=== PATIENT | female | born 1950 | race Caucasian/White ===

== ENCOUNTER 2024-02-10 15:59 | Inpatient (IN) ==
--- NOTE | 2024-02-10 16:15 | ED Triage Note ---
Date of Service February 10, 2024 Provider in Triage Author: Justina Griffin History of Present Illness This patient was briefly evaluated while in triage. An abbreviated physical exam was performed. This patient is a 73-year-old Female who presents to the ED for evaluation of weakness. Pt. has not been eating/drinking/urinating well the past few days. 3 weeks ago, had 2nd dose of chemotherapy. Has been extremely tired and sleeping most days. Pt. did fall on Saturday night while getting up to bedside commode. Was not witnessed. Pt. denies striking head. Physical Exam VITALS: Vitals are noted on the nurse's note and reviewed by myself. GENERAL: This is a 73 year old female, in no acute distress, nondiaphoretic, well-developed well-nourished. SKIN: No obvious rashes, edema, erythema HEAD: Normocephalic atraumatic. EYES: Conjunctivae without injection, sclerae without icterus. NECK: No JVD. LUNGS: No retractions or accessory muscle use. MUSCULOSKELETAL: Presents in a wheelchair. NEURO: Patient was alert and oriented to person place and time. No focal neurological deficits. Initial orders for labs and / or imaging were placed and patient was placed in the waiting area until a bed is available. Please see further documentation for the full ED course.
[2024-02-10 16:59] LABS: Base Excess VBG -4.4 mEq/L; HCO3 VBG 21 mmol/L; Oxygen Saturation VBG < 60.0 %; PCO2 VBG 39 mmHg (38-50); PO2 VBG 21 mmHg; pH VBG 7.34 (7.36-7.41)
[2024-02-10 17:18] LABS: Hematocrit (blood only) 20.4 % (37.0-47.0); Hemoglobin 6.9 g/dl (12.0-16.0); Mean Corpuscular Hgb Conc 33.8 g/dL (32.0-36.0); Mean Corpuscular Volume 85.7 fL (80.0-100.0); Mean Platelet Volume 9.6 fL (9.4-12.4); Platelet Count 271 K/uL (130-400); RDW Standard Deviation 59.7 fL (36.4-46.3); Red Blood Count 2.38 M/uL (4.20-5.40); White Blood Count 14.06 K/ul (4.8-10.8)
[2024-02-10] MEDS: SODIUM CHLORIDE 0.9% 1,000 ML IV ONE (17:20)
[2024-02-10 17:22] LABS: Alanine Aminotransferase 14 U/L (7-52); Albumin Level 3.2 gm/dl (3.4-5.0); Alkaline Phosphatase 90 U/L (34-104); Anion Gap 11 (3-11); Aspartate Aminotransferase 24 U/L (13-39); BUN Creatinine Ratio 15.8 (10-20); Bilirubin,Total 0.4 mg/dl (0.2-1.0); Blood Urea Nitrogen 44 mg/dl (6-23); Calcium 8.2 mg/dl (8.6-10.3); Carbon Dioxide 22 mmol/L (21-32); Chloride 89 mmol/L (98-107); Globulin 3.2 gm/dl (2.5-4.0); Glucose 83 mg/dl (70-99(Fasting)); Magnesium 1.6 mg/dl (1.7-2.4); Potassium 3.8 mmol/L (3.5-5.1); Sodium 122 mmol/L (136-145); Total Protein 6.4 gm/dl (6.0-8.3)
[2024-02-10 17:25] LABS: Basophils # (auto) 0.04 K/uL (0.00-0.20); Basophils % (auto) 0.3 %; Eosinophils # (auto) 0.07 K/uL (0.00-0.50); Eosinophils % (auto) 0.5 %; Immature Granulocytes # (auto) 0.64 K/uL (0.01-0.20); Immature Granulocytes % (auto) 4.6 %; Lymphocytes # (auto) 1.21 K/uL (1.20-3.40); Lymphocytes % (auto) 8.6 %; Monocytes # (auto) 0.53 K/uL (0.11-0.59); Monocytes % (auto) 3.8 %; Neutrophils # (auto) 11.57 K/uL (1.40-6.50); Neutrophils % (auto) 82.2 %; RBC Morphology Unremarkable
[2024-02-10 17:32] LABS: Partial Thromboplastin Time 28 Seconds (21-31); Prothrombin Time 10.9 Seconds (9.0-12.0)
[2024-02-10 17:35] LABS: Troponin I High Sensitivity 4722.8 pg/ml (0-14)
[2024-02-10] MEDS ORDERED: SODIUM CHLORIDE 0.9% 100 ML IV PRN (17:35)
[2024-02-10] MEDS ORDERED: SODIUM CHLORIDE 0.9% 50 ML IV PRN (17:35)
[2024-02-10 17:37] LABS: Thyroid Stimulating Hormone 3.822 uIu/ml (0.300-4.500)
--- NOTE | 2024-02-10 18:00 | XRay Report ---
EXAM: Radiograph of the Chest 1 View INDICATION: Fall. Weakness. TECHNIQUE: Frontal view of the chest. COMPARISON: 12/16/2023 FINDINGS: Lungs and pleural spaces: Decreased size and asymmetric wall thickening of a cavitary nodule in the right mid to lower lung measuring 2.7 x 3.3 cm. New generalized airway thickening and patchy infiltrates in the left lung most confluent in the base. Stable scarring in the right upper lobe. Trace left pleural effusion probable. No pneumothorax. Patchy consolidation in the left lung base. Possible very small left pleural effusion. Heart: Shape and configuration within normal limits allowing for technique. Mediastinum: Normal contour. Bones/joints: No fracture, erosion or dislocation. Bilateral shoulder arthroplasties well-seated. Soft tissues: No abnormality noted. No radiopaque foreign body noted. Tubes, lines and devices: Right internal jugular port catheter tip terminates in the proximal SVC. Upper abdomen: No abnormality noted. IMPRESSION: Left bronchitis and multifocal pneumonia. Trace left pleural effusion. Consider aspiration. ACT 112: Negative or not required by law. Electronically signed by Anny Pelayo 02-10-2024 6:00 PM
[2024-02-10 18:02] LABS: Reticulocyte % 1.57 % (0.50-2.00)
--- NOTE | 2024-02-10 18:10 | XRay Report ---
EXAM: Radiographs of the Pelvis 1 View INDICATION: Fall. TECHNIQUE: Frontal view of the pelvis. COMPARISON: No relevant prior studies available. FINDINGS: Limitations: None. Bones/joints: Visualized bilateral hip prostheses well-seated. No dislocation or fracture noted in 1 year. Soft tissues: No abnormality noted. No radiopaque foreign body noted. Vasculature: Atherosclerosis of the abdominal aorta noted with a stent projecting to the left of the L4 vertebra possibly in the left renal artery. IMPRESSION: No pelvic fracture noted. ACT 112: Negative or not required by law. Electronically signed by Anny Pelayo 02-10-2024 6:10 PM
[2024-02-10 18:11] LABS: Iron 45 mcg/dl (35-150); Transferrin 178 mg/dl (200-360); Unsaturated Iron Binding Cap 190 mcg/dl (155-355)
--- NOTE | 2024-02-10 18:13 | Emergency Department Note ---
Impression & Plan Septic shock, Anemia, Pneumonia, Lung cancer, Elevated troponin, Acute on chronic renal insufficiency, Respiratory failure, acute and chronic, Hypomagnesemia ED Provider Note NAME: JORGE DE LA TORRE AGE: 73 SEX: F : 1950 ARRIVES VIA: Walk-In INFORMANT: Patient ED PROVIDER(S): Giorgio Monroy MD CHIEF COMPLAINT: Weakness, fall on Saturday, history of lung cancer on chemotherapy PLAN: Disposition: Admit MEDICAL DECISION MAKING: The patient is a pleasant 73-year-old woman with past medical history of CKD, COPD, lung cancer who presents emergency department via walk-in for evaluation of generalized weakness that has been ongoing for the past week. She reports she did have a fall on Saturday where she collapsed to her knees and hands and denies hitting her head. She reports she has been having issues with her "iron" and has been receiving "infusions" through the cancer center. This has interrupted her treatments over the past several weeks. She follows with [facility] oncology. Of note, the patient did arrive to emergency department during time of high volume, acuity and prolonged emergency department waiting times. Critical pathways initiated from triage. On evaluation the patient is fatigued/ill appearing but no distress, afebrile with heart rate in the 130s and blood pressure in the 70s/40s in triage though mentating normally upon arriving to the room with measurement on auto BP cuff. Manual BP cuff was somewhat better at 80s/60s. Patient has discomfort with range of motion of her right hip and ankle. There is no gross deformity or discoloration. EKG without overt acute ischemia. CXR demonstrates decrease in size and asymmetric wall thickening with cavitary nodule in the right mid to lower lung measuring 2.7 x 3.3 cm. There are new generalized airway thickening and patchy infiltrates in left lung and base. Trace left pleural effusion is suspected. WBC 14K with neutrophilia and left shift of 0.64. H/H 6.9/20.4 with MCV of 85. The patient was consented for blood transfusion. 2 units of PRBCs were ordered with 1 unit to transfuse now. Platelets within normal limits. VBG is unremarkable. Chemistry with out metabolic acidosis. Lactate 1.3, within normal limits. There is acute on chronic renal failure with creatinine of 2.78 from patient's baseline. Sodium is 122 with normal glucose with osmolality pending. Magnesium 1.6 with IV repletion initiated. LFTs unremarkable. High- sensitivity troponin is 4700 and given the patient's lung cancer where she is not on anticoagulation suspicion raised for PE. Despite her renal insufficiency given her hypotension we will proceed with CTA of the chest. Procalcitonin is elevated at 0.52. Antibiotics initiated with IV Zosyn and vancomycin. CT of the head negative for acute abnormalities. Description of age indeterminant small cortical infarct of the right parietal cortex is described but does not correlate clinically for acute finding. CT of the cervical spine negative for fractures. CTA of the chest was negative for PE. Extensive consolidation of the left lower lobe is described. Increasing nodular appearing lesions of left upper lobe demonstrate early cavitation. Cavitary lesion of the right lower lobe with wall thickening measures 4.3 cm. Heterogenous opacity in the right upper lobe appears to be a peripheral rim measuring 4.3 cm. Linear nodule density in the posterior right upper lobe measuring 3.7 x 1.5 cm. Severe CAD by CT is described. CT of the abdomen pelvis was negative for fracture. Heterogenous appearance of the marrow within the pelvis is described where metastatic disease cannot be completely excluded. AAA measuring 4.1 cm is noted. 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 Upon return from CT imaging the patient had developed acute respiratory distress with increased work of breathing and diffuse wheezes. She was placed on BiPAP and treated with continuous DuoNeb with improvement in work of breathing. PRBCs were hung. However blood pressure again became hypotensive and given concern for volume overload in the setting of the patient's renal insufficiency Levophed was initiated and additional 250 cc of normal saline administered with caution. Patient was transferred to critical care bay for closer monitoring. Patient also was noted to be hypothermic to 35.6 by central temperature and so María Elena hugger placed. Case was discussed with Dr. Flor, [facility] hospitalist who will evaluate the patient for admission. Further management per admitting team. Triage Nursing notes reviewed and agree them. Prior/external medical records reviewed Vital Signs: reviewed Differential diagnosis: Infection, dehydration, metabolic abnormality, hypo/hyperglycemia, electrolyte disturbance, anemia, hypoxia, cardiac sources, intracerebral event, toxicologic, neurologic, as well as other pathologies. ER treatment provided: See below. Diagnostics interpreted by me: ECG: Normal sinus rhythm, 79 bpm, no ectopy, no overt ST elevation or depression, QTc 458 QRS 88. Cardiac Monitoring: An order for continuous cardiac monitoring was placed and demonstrated Normal sinus rhythm, 79 bpm, no ectopy. Laboratory studies: See below Imaging studies: See below Consultation(s): Case was discussed with Dr. Flor, [facility] hospitalist who will evaluate the patient for admission. HPI: The patient is a pleasant 73-year-old woman with past medical history of CKD, COPD, lung cancer who presents emergency department via walk-in for evaluation of generalized weakness that has been ongoing for the past week. She reports she did have a fall on Saturday where she collapsed to her knees and hands and denies hitting her head. She reports she has been having issues with her "iron" and has been receiving "infusions" through the cancer center. This has interrupted her treatments over the past several weeks. She follows with [facility] oncology. ROS: See above HPI for pertinent positives & negatives. A total of 10 systems reviewed and were otherwise negative. VITALS:See Below PHYSICAL EXAMINATION: GENERAL: Awake, alert, fatigued/ill-appearing, in no distress, cachectic, BMI 26.1. HENT: Normocephalic, atraumatic. Oropharynx with dry mucous membranes and otherwise unremarkable. EYES: Normal conjunctiva. Sclera non-icteric. NECK: Supple. No nuchal rigidity. FROM. No JVD. RESPIRATORY: Wheezes of bilateral lung núñez. CARDIAC: Tachycardic rate, normal rhythm. Extremities warm and well perfused. Pulses equal. ABDOMEN: Soft, non-distended. No tenderness to palpation. No rebound or guarding. No masses. MUSCULOSKELETAL: Chest examination reveals no tenderness. The back is symmetrical on inspection without obvious abnormality. There is no CVA tenderness to palpation. No joint edema. discomfort with range of motion of her right hip and ankle. There is no gross deformity or discoloration. LOWER EXTREMITIES: Calves are equal size bilaterally and non-tender. No edema. No discoloration. NEURO: Normal sensorium. No sensory or motor deficits noted. SKIN: No rash or jaundice noted. ED COURSE: Critical Care: I have personally spent greater than 125 minutes of critical care time in the direct management of this patient. This includes bedside care, interpretation of diagnostic studies, and testing, discussion with consultants, patient, and family members, and other required patient management activities. This 125 minutes is in excess of all separately billable procedures. Giorgio Monroy MD Past Med/Surg History Problem List (Updated 02/11/24 @ 07:00 by Giorgio Monroy MD) Hypomagnesemia (Acute) Acute on chronic renal insufficiency (Acute) Encephalopathy [place] (acute kidney injury) Respiratory failure, acute and chronic (Acute) Elevated troponin (Acute) Lung cancer (Acute) Pneumonia (Acute) Anemia (Acute) Septic shock (Acute) Medical History Hyponatremia AAA (abdominal aortic aneurysm) per 09/10/23 imagin.7mm CKD (chronic kidney disease) stage 4, GFR 15-29 ml/min Carotid artery disease s/p R CEA Peripheral vascular disease Diverticular disease No hospitalizations - unsure when dx Acid reflux Diabetes mellitus, type 2 Anxiety Migraine HTN (hypertension) Irregular heart beat Follows Dr Hannah Springer; 'frequent PVCs' per chart review COPD (chronic obstructive pulmonary disease) 55 pack year smoking hx Lung cancer Per Oncology note, "Right lung mass, FNA c/w non small cell lung cancer favor adenocarcinoma. 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" Surgical History H/O vascular surgery L leg stent x 2 Hx of hysterectomy History of lung biopsy History of right shoulder replacement History of carotid endarterectomy R CEA History of bilateral hip replacements History of total left knee replacement Hx of colonoscopy Hx of cholecystectomy Hx of cataract surgery Bilateral Social History Smoking Status: Never smoker Tobacco Type: Cigarettes Cigarettes Per Day: 1/2 pack; Second Hand Exposure: No; Do You Dip or Chew Tobacco: No; Hx Alcohol Use: No Hx Substance Use: No Preferred Language: Turkmen Communication Ability: Effective Receptionist Nurse Required: No Beliefs That Will Affect Care: None Current Living Situation: Spouse Feels Safe at Home: Yes Assistive Devices: Walker Allergies Allergies Allergy/AdvReac Type Severity Reaction Status Date / Time NSAIDS (Non-Steroidal AdvReac Intermediate Hives Verified 12/16/23 07:27 Anti-Inflamma Home Meds Home Medications Medication Instructions Recorded Confirmed amlodipine 5 mg tablet 2.5 mg PO QAM 12/04/23 02/10/24 budesonide 160 mcg-glycopyr 9 2 inh inhalation QPM 12/04/23 02/10/24 mcg-formot 4.8 mcg/actuation HFA inhaler (Breztri Aerosphere) bupropion HCl 150 mg 24 hr tablet, 150 mg PO QAM 12/04/23 02/10/24 extended release dapagliflozin propanediol 5 mg 5 mg PO QAM 12/04/23 02/10/24 tablet (Farxiga) dexamethasone 4 mg tablet See Rx Instructions .Route .COMPLEX 12/04/23 02/10/24 lansoprazole 15 mg capsule,delayed 15 mg PO QAM 12/04/23 02/10/24 release losartan 100 mg tablet 100 mg PO QAM 12/04/23 02/10/24 osimertinib 40 mg tablet (Tagrisso) 40 mg PO QAM 12/04/23 02/10/24 rosuvastatin 10 mg tablet 10 mg PO QAM 12/04/23 02/10/24 venlafaxine 150 mg 150 mg PO QAM 12/04/23 02/10/24 capsule,extended release 24 hr (Effexor XR) acetaminophen 500 mg tablet 500 mg PO Q6H PRN Pain 02/10/24 02/10/24 albuterol sulfate 2.5 mg/3 mL 2.5 mg inhalation Q4H PRN Wheezing 02/10/24 02/10/24 (0.083 %) solution for nebulization albuterol sulfate 90 mcg/actuation 2 puff inhalation 6XD PRN Wheezing 02/10/24 02/10/24 aerosol inhaler aspirin 81 mg tablet,delayed 81 mg PO DAILY 02/10/24 02/10/24 release lidocaine-prilocaine 2.5 %-2.5 % 1 applic topical UD 02/10/24 02/10/24 topical cream melatonin 5 mg tablet 5 mg PO HS 02/10/24 02/10/24 omeprazole 20 mg capsule,delayed 20 mg PO QAM 02/10/24 02/10/24 release ondansetron HCl 8 mg tablet 8 mg PO Q8H PRN Nausea And Vomiting 02/10/24 02/10/24 prochlorperazine maleate 10 mg 10 mg PO Q6H PRN Nausea 02/10/24 02/10/24 tablet propranolol 60 mg capsule,24 60 mg PO QAM 02/10/24 02/10/24 hr,extended release trazodone 100 mg tablet 100 mg PO QAM 02/10/24 02/10/24 Results & Data (ED) Vital Signs Vital Signs - 24 hr 02/10/24 16:16 02/10/24 17:27 02/10/24 17:29 Temperature 36.5 C Temperature Source Temporal Artery Scan Pulse Rate 132 H 80 Pulse Rate [Apical] Pulse Rate from SpO2 Sensor Respiratory Rate 20 15 Respiratory Effort / Characteristics Non-Labored Spontaneous Respiratory Depth Normal Respiratory Pattern Blood Pressure 76/43 L Blood Pressure [Left Arm] Blood Pressure Mean 54 Blood Pressure Mean [Left Arm] Pulse Oximetry 98 92 Oxygen Delivery Method Room Air Nasal Cannula Nasal Cannula Oxygen Flow Rate 2 2 Fraction of Inspired Oxygen Sepsis Recent Fever Within 48 Hours No Sepsis New/Unexplained Change in Mental Status No Sepsis Action Taken by Nursing No Action Required 02/10/24 17:32 02/10/24 17:44 02/10/24 17:45 Temperature Temperature Source Pulse Rate 80 Pulse Rate [Apical] 81 80 Pulse Rate from SpO2 Sensor Respiratory Rate 22 18 Respiratory Effort / Characteristics Non-Labored Spontaneous Non-Labored Spontaneous Respiratory Depth Normal Normal Respiratory Pattern Regular Blood Pressure Blood Pressure [Left Arm] 76/34 L 80/60 L Blood Pressure Mean Blood Pressure Mean [Left Arm] 48 66 Pulse Oximetry 93 95 Oxygen Delivery Method Room Air Nasal Cannula Oxygen Flow Rate Fraction of Inspired Oxygen Sepsis Recent Fever Within 48 Hours Sepsis New/Unexplained Change in Mental Status Sepsis Action Taken by Nursing 02/10/24 18:00 02/10/24 19:45 02/10/24 19:45 Temperature Temperature Source Pulse Rate 76 Pulse Rate [Apical] 80 Pulse Rate from SpO2 Sensor Respiratory Rate 19 26 H Respiratory Effort / Characteristics Non-Labored Spontaneous Spontaneous Accessory Muscle Use Respiratory Depth Normal Respiratory Pattern Blood Pressure Blood Pressure [Left Arm] 99/49 L Blood Pressure Mean Blood Pressure Mean [Left Arm] 65 Pulse Oximetry 92 Oxygen Delivery Method Nasal Cannula BiPAP Oxygen Flow Rate Fraction of Inspired Oxygen 100 Sepsis Recent Fever Within 48 Hours Sepsis New/Unexplained Change in Mental Status Sepsis Action Taken by Nursing 02/10/24 19:50 02/10/24 20:06 02/10/24 20:07 Temperature 35.8 C L 36.8 C Temperature Source Axillary Rectal Pulse Rate 81 78 79 Pulse Rate [Apical] Pulse Rate from SpO2 Sensor 78 Respiratory Rate 27 H 17 22 Respiratory Effort / Characteristics Respiratory Depth Respiratory Pattern Blood Pressure 90/46 L 69/44 L Blood Pressure [Left Arm] Blood Pressure Mean 60 52 Blood Pressure Mean [Left Arm] Pulse Oximetry 92 100 96 Oxygen Delivery Method BiPAP Oxygen Flow Rate 100 Fraction of Inspired Oxygen 40 Sepsis Recent Fever Within 48 Hours Sepsis New/Unexplained Change in Mental Status Sepsis Action Taken by Nursing 02/10/24 20:12 02/10/24 20:15 02/10/24 20:15 Temperature Temperature Source Pulse Rate 78 Pulse Rate [Apical] Pulse Rate from SpO2 Sensor 77 Respiratory Rate 21 Respiratory Effort / Characteristics Respiratory Depth Respiratory Pattern Blood Pressure 76/53 L Blood Pressure [Left Arm] Blood Pressure Mean 56 Blood Pressure Mean [Left Arm] Pulse Oximetry Oxygen Delivery Method BiPAP Oxygen Flow Rate Fraction of Inspired Oxygen Sepsis Recent Fever Within 48 Hours Sepsis New/Unexplained Change in Mental Status Sepsis Action Taken by Nursing 02/10/24 20:21 02/10/24 20:22 02/10/24 20:22 Temperature 35.6 C L Temperature Source Axillary Pulse Rate 77 75 Pulse Rate [Apical] Pulse Rate from SpO2 Sensor Respiratory Rate 20 16 Respiratory Effort / Characteristics Respiratory Depth Respiratory Pattern Blood Pressure 84/43 L 121/89 Blood Pressure [Left Arm] Blood Pressure Mean 56 100 Blood Pressure Mean [Left Arm] Pulse Oximetry 99 100 Oxygen Delivery Method BiPAP Oxygen Flow Rate Fraction of Inspired Oxygen 40 Sepsis Recent Fever Within 48 Hours Sepsis New/Unexplained Change in Mental Status Sepsis Action Taken by Nursing 02/10/24 20:27 02/10/24 20:27 02/10/24 20:31 Temperature Temperature Source Pulse Rate 75 Pulse Rate [Apical] Pulse Rate from SpO2 Sensor Respiratory Rate 18 Respiratory Effort / Characteristics Respiratory Depth Respiratory Pattern Blood Pressure 84/43 L Blood Pressure [Left Arm] Blood Pressure Mean 61 Blood Pressure Mean [Left Arm] Pulse Oximetry 97 100 Oxygen Delivery Method BiPAP Oxygen Flow Rate Fraction of Inspired Oxygen 40 40 Sepsis Recent Fever Within 48 Hours Sepsis New/Unexplained Change in Mental Status Sepsis Action Taken by Nursing 02/10/24 20:37 02/10/24 20:39 02/10/24 20:39 Temperature Temperature Source Pulse Rate 82 Pulse Rate [Apical] Pulse Rate from SpO2 Sensor 80 Respiratory Rate 20 Respiratory Effort / Characteristics Respiratory Depth Respiratory Pattern Blood Pressure 72/47 L 88/43 L Blood Pressure [Left Arm] Blood Pressure Mean 55 48 Blood Pressure Mean [Left Arm] Pulse Oximetry 92 Oxygen Delivery Method Oxygen Flow Rate Fraction of Inspired Oxygen Sepsis Recent Fever Within 48 Hours Sepsis New/Unexplained Change in Mental Status Sepsis Action Taken by Nursing 02/10/24 20:45 02/10/24 20:45 02/10/24 20:49 Temperature Temperature Source Pulse Rate 83 Pulse Rate [Apical] Pulse Rate from SpO2 Sensor 83 Respiratory Rate 21 Respiratory Effort / Characteristics Respiratory Depth Respiratory Pattern Blood Pressure 67/43 L 85/36 L Blood Pressure [Left Arm] Blood Pressure Mean 45 47 Blood Pressure Mean [Left Arm] Pulse Oximetry 92 Oxygen Delivery Method Oxygen Flow Rate Fraction of Inspired Oxygen Sepsis Recent Fever Within 48 Hours Sepsis New/Unexplained Change in Mental Status Sepsis Action Taken by Nursing 02/10/24 20:50 02/10/24 20:51 02/10/24 20:52 Temperature 35.8 C L Temperature Source [place] Cath ( Temp Sensing) Pulse Rate 86 91 H Pulse Rate [Apical] Pulse Rate from SpO2 Sensor 94 H Respiratory Rate 24 18 Respiratory Effort / Characteristics Respiratory Depth Respiratory Pattern Blood Pressure 92/51 L 104/52 L Blood Pressure [Left Arm] Blood Pressure Mean 61 69 Blood Pressure Mean [Left Arm] Pulse Oximetry 98 100 Oxygen Delivery Method BiPAP Oxygen Flow Rate Fraction of Inspired Oxygen 40 Sepsis Recent Fever Within 48 Hours Sepsis New/Unexplained Change in Mental Status Sepsis Action Taken by Nursing 02/10/24 20:56 02/10/24 20:56 02/10/24 21:00 Temperature Temperature Source Pulse Rate 91 H Pulse Rate [Apical] Pulse Rate from SpO2 Sensor 92 H Respiratory Rate 20 Respiratory Effort / Characteristics Respiratory Depth Respiratory Pattern Blood Pressure 104/54 L 104/54 L Blood Pressure [Left Arm] Blood Pressure Mean 57 57 Blood Pressure Mean [Left Arm] Pulse Oximetry 99 Oxygen Delivery Method BiPAP Oxygen Flow Rate Fraction of Inspired Oxygen 40 Sepsis Recent Fever Within 48 Hours Sepsis New/Unexplained Change in Mental Status Sepsis Action Taken by Nursing 02/10/24 21:00 02/10/24 21:00 02/10/24 21:03 Temperature Temperature Source Pulse Rate 93 H Pulse Rate [Apical] Pulse Rate from SpO2 Sensor 93 H Respiratory Rate 25 H Respiratory Effort / Characteristics Respiratory Depth Respiratory Pattern Blood Pressure 115/77 Blood Pressure [Left Arm] Blood Pressure Mean 103 Blood Pressure Mean [Left Arm] Pulse Oximetry 97 Oxygen Delivery Method BiPAP BiPAP Oxygen Flow Rate Fraction of Inspired Oxygen 40 Sepsis Recent Fever Within 48 Hours Sepsis New/Unexplained Change in Mental Status Sepsis Action Taken by Nursing 02/10/24 21:07 02/10/24 21:09 02/10/24 21:10 Temperature Temperature Source Pulse Rate 93 H Pulse Rate [Apical] Pulse Rate from SpO2 Sensor Respiratory Rate 25 H Respiratory Effort / Characteristics Respiratory Depth Respiratory Pattern Blood Pressure 101/70 112/56 L Blood Pressure [Left Arm] Blood Pressure Mean 86 71 Blood Pressure Mean [Left Arm] Pulse Oximetry Oxygen Delivery Method Oxygen Flow Rate Fraction of Inspired Oxygen Sepsis Recent Fever Within 48 Hours Sepsis New/Unexplained Change in Mental Status Sepsis Action Taken by Nursing 02/10/24 21:10 02/10/24 21:12 02/10/24 21:16 Temperature Temperature Source Pulse Rate 96 H Pulse Rate [Apical] Pulse Rate from SpO2 Sensor 96 H Respiratory Rate 20 Respiratory Effort / Characteristics Respiratory Depth Respiratory Pattern Blood Pressure 112/56 L 108/56 L Blood Pressure [Left Arm] Blood Pressure Mean 71 67 Blood Pressure Mean [Left Arm] Pulse Oximetry 94 Oxygen Delivery Method BiPAP Oxygen Flow Rate Fraction of Inspired Oxygen 40 Sepsis Recent Fever Within 48 Hours Sepsis New/Unexplained Change in Mental Status Sepsis Action Taken by Nursing 02/10/24 21:18 02/10/24 21:19 02/10/24 21:25 Temperature Temperature Source Pulse Rate 95 H 96 H Pulse Rate [Apical] Pulse Rate from SpO2 Sensor 98 H Respiratory Rate 22 Respiratory Effort / Characteristics Respiratory Depth Respiratory Pattern Blood Pressure 83/57 L Blood Pressure [Left Arm] Blood Pressure Mean 69 Blood Pressure Mean [Left Arm] Pulse Oximetry 100 Oxygen Delivery Method BiPAP Oxygen Flow Rate Fraction of Inspired Oxygen 40 Sepsis Recent Fever Within 48 Hours Sepsis New/Unexplained Change in Mental Status Sepsis Action Taken by Nursing 02/10/24 21:30 02/10/24 21:30 02/10/24 21:48 Temperature Temperature Source Pulse Rate 96 H 95 H Pulse Rate [Apical] Pulse Rate from SpO2 Sensor 97 H 95 H Respiratory Rate 28 H 24 Respiratory Effort / Characteristics Respiratory Depth Respiratory Pattern Blood Pressure 106/51 L Blood Pressure [Left Arm] Blood Pressure Mean 83 Blood Pressure Mean [Left Arm] Pulse Oximetry 100 Oxygen Delivery Method BiPAP Oxygen Flow Rate Fraction of Inspired Oxygen 40 Sepsis Recent Fever Within 48 Hours Sepsis New/Unexplained Change in Mental Status Sepsis Action Taken by Nursing Laboratory Data Attestation: I reviewed the patient's lab results. 02/11/24 05:21 02/11/24 05:21 Lab Results 02/10/24 02/10/24 02/10/24 Range/Units 16:44 16:44 16:44 WBC 14.06 H (4.8-10.8) K/ul RBC 2.38 L (4.20-5.40) M/uL Hgb 6.9 L* (12.0-16.0) g/dl POC Hgb (12.0-16.0) g/dl Hct 20.4 L* (37.0-47.0) % POC Hct (37-47) % MCV 85.7 (80.0-100.0) fL MCH 29.0 (25.0-34.0) pg MCHC 33.8 (32.0-36.0) g/dL RDW Std Deviation 59.7 H (36.4-46.3) fL RDW Coeff of Lara 19.0 H (11.5-14.5) % Plt Count 271 (130-400) K/uL MPV 9.6 (9.4-12.4) fL Immature Gran % (Auto) 4.6 % Neut % (Auto) 82.2 % Lymph % (Auto) 8.6 % [place] % (Auto) 3.8 % Eos % (Auto) 0.5 % Baso % (Auto) 0.3 % Reticulocyte % (Auto) 1.57 (0.50-2.00) % Neut # (Auto) 11.57 H (1.40-6.50) K/uL Lymph # (Auto) 1.21 (1.20-3.40) K/uL [place] # (Auto) 0.53 (0.11-0.59) K/uL Eos # (Auto) 0.07 (0.00-0.50) K/uL Baso # (Auto) 0.04 (0.00-0.20) K/uL Reticulocyte # 0.040 (0.020-0.100) 10^6/uL Immature Gran # (Auto) 0.64 H (0.01-0.20) K/uL RBC Morphology Unremarkable PT 10.9 (9.0-12.0) Seconds INR 1.0 (0.9-1.1) APTT 28 (21-31) Seconds PTT Ratio 1.0 Specimen Type POC pH (7.35-7.45) POC pCO2 (35-46) mmHg POC pO2 (80-95) mmHg POC HCO3 (19-24) mitchell/L POC Total CO2 (24-31) mmol/L POC Base Excess (-9-1.8) mitchell/L POC ABG O2 Sat (90-95) % VBG pH 7.34 L (7.36-7.41) VBG pCO2 39 (38-50) mmHg VBG pO2 21 mmHg VBG HCO3 21 mmol/L VBG O2 Saturation < 60.0 % VBG Base Excess -4.4 mEq/L POC Sodium (135-144) mmol/L Sodium 122 L (136-145) mmol/L POC Potassium (3.3-5.0) mmol/L Potassium 3.8 (3.5-5.1) mmol/L Chloride 89 L (98-107) mmol/L Carbon Dioxide 22 (21-32) mmol/L Anion Gap 11 (3-11) BUN 44 H (6-23) mg/dl Creatinine 2.78 H (0.6-1.2) mg/dl Est Cr Clr Drug Dosing Not Reportable eGFR 17.44 BUN/Creatinine Ratio 15.8 (10-20) Glucose 83 (70-99(Fasting)) mg/dl Osmolality (280-300) mOsm/kg Lactate 1.3 (0.4-2.0) mmol/L Calcium 8.2 L (8.6-10.3) mg/dl Magnesium 1.6 L (1.7-2.4) mg/dl Iron 45 Cancelled (35-150) mcg/dl Unsaturated IBC 190 Cancelled (155-355) mcg/dl Transferrin 178 L (200-360) mg/dl Ferritin (8-388) ng/ml Total Bilirubin (0.2-1.0) mg/dl AST (13-39) U/L ALT (7-52) U/L Alkaline Phosphatase (34-104) U/L Total Creatine Kinase (26-192) U/L Troponin I High Sens (0-14) pg/ml B-Natriuretic Peptide (0-100) pg/ml Total Protein (6.0-8.3) gm/dl Albumin (3.4-5.0) gm/dl Globulin (2.5-4.0) gm/dl Albumin/Globulin Ratio (0.9-2) Vitamin B12 (180-914) pg/ml Folate (>5.38) ng/ml Procalcitonin (0-0.5) ng/ml TSH (0.300-4.500) uIu/ml Urine Color Urine Appearance (Clear) Urine pH (4.5-7.5) Ur Specific [place] (1.000-1.030) Urine Protein (Negative) Urine Glucose (UA) (Negative) Urine Ketones (Negative) Urine Blood (Negative) Urine Nitrite (Negative) Urine Bilirubin (Negative) Urine Urobilinogen (Negative) Ur Leukocyte Esterase (Negative) Urine WBC (Auto) (0-5) /hpf Urine RBC (Auto) (0-2) /hpf U Hyaline Cast (Auto) (0-2) /lpf U Epithel Cells (Auto) (0-2) /hpf Urine Bacteria (Auto) (None Seen) Hyaline Casts (None Presnt) /lpf Urine Osmolality (500-800) mOsm/kg Ur Random Sodium mmol/L Nasal Screen MRSA (PCR) (Negative) Adenovirus (PCR) (NotDetected) B. pertussis DNA (PCR) (NotDetected) B.parapertussis DNA PCR (NotDetected) C. pneumoniae DNA (PCR) (NotDetected) Coronavirus OC43 (PCR) (NotDetected) Coronavirus HKU1 (PCR) (NotDetected) Coronavirus 229E (PCR) (NotDetected) SARS-CoV-2 (PCR) (NotDetected) Coronavirus NL63 (PCR) (NotDetected) Human Metapneumovir PCR (NotDetected) Influenza Type A (PCR) (NotDetected) Influenza Type B (PCR) (NotDetected) M. pneumoniae (PCR) (NotDetected) Parainfluenza 1 (PCR) (NotDetected) Parainfluenza 2 (PCR) (NotDetected) Parainfluenza 3 (PCR) (NotDetected) Parainfluenza 4 (PCR) (NotDetected) RSV (PCR) (NotDetected) Entero/Rhino (PCR) (NotDetected) Blood Type Blood Type Recheck Antibody Screen Crossmatch 02/10/24 02/10/24 02/10/24 Range/Units 16:44 16:44 17:17 WBC (4.8-10.8) K/ul RBC (4.20-5.40) M/uL Hgb (12.0-16.0) g/dl POC Hgb (12.0-16.0) g/dl Hct (37.0-47.0) % POC Hct (37-47) % MCV (80.0-100.0) fL MCH (25.0-34.0) pg MCHC (32.0-36.0) g/dL RDW Std Deviation (36.4-46.3) fL RDW Coeff of Lara (11.5-14.5) % Plt Count (130-400) K/uL MPV (9.4-12.4) fL Immature Gran % (Auto) % Neut % (Auto) % Lymph % (Auto) % [place] % (Auto) % Eos % (Auto) % Baso % (Auto) % Reticulocyte % (Auto) (0.50-2.00) % Neut # (Auto) (1.40-6.50) K/uL Lymph # (Auto) (1.20-3.40) K/uL [place] # (Auto) (0.11-0.59) K/uL Eos # (Auto) (0.00-0.50) K/uL Baso # (Auto) (0.00-0.20) K/uL Reticulocyte # (0.020-0.100) 10^6/uL Immature Gran # (Auto) (0.01-0.20) K/uL RBC Morphology PT (9.0-12.0) Seconds INR (0.9-1.1) APTT (21-31) Seconds PTT Ratio Specimen Type POC pH (7.35-7.45) POC pCO2 (35-46) mmHg POC pO2 (80-95) mmHg POC HCO3 (19-24) mitchell/L POC Total CO2 (24-31) mmol/L POC Base Excess (-9-1.8) mitchell/L POC ABG O2 Sat (90-95) % VBG pH (7.36-7.41) VBG pCO2 (38-50) mmHg VBG pO2 mmHg VBG HCO3 mmol/L VBG O2 Saturation % VBG Base Excess mEq/L POC Sodium (135-144) mmol/L Sodium (136-145) mmol/L POC Potassium (3.3-5.0) mmol/L Potassium (3.5-5.1) mmol/L Chloride (98-107) mmol/L Carbon Dioxide (21-32) mmol/L Anion Gap (3-11) BUN (6-23) mg/dl Creatinine (0.6-1.2) mg/dl Est Cr Clr Drug Dosing eGFR BUN/Creatinine Ratio (10-20) Glucose (70-99(Fasting)) mg/dl Osmolality 261 L (280-300) mOsm/kg Lactate (0.4-2.0) mmol/L Calcium (8.6-10.3) mg/dl Magnesium (1.7-2.4) mg/dl Iron (35-150) mcg/dl Unsaturated IBC (155-355) mcg/dl Transferrin Cancelled (200-360) mg/dl Ferritin 1527.0 H Cancelled (8-388) ng/ml Total Bilirubin 0.4 (0.2-1.0) mg/dl AST 24 (13-39) U/L ALT 14 (7-52) U/L Alkaline Phosphatase 90 (34-104) U/L Total Creatine Kinase (26-192) U/L Troponin I High Sens 4722.8 H* 4337.1 H* (0-14) pg/ml B-Natriuretic Peptide (0-100) pg/ml Total Protein 6.4 (6.0-8.3) gm/dl Albumin 3.2 L (3.4-5.0) gm/dl Globulin 3.2 (2.5-4.0) gm/dl Albumin/Globulin Ratio 1.0 (0.9-2) Vitamin B12 657 (180-914) pg/ml Folate 14.60 (>5.38) ng/ml Procalcitonin 0.52 H (0-0.5) ng/ml TSH 3.822 (0.300-4.500) uIu/ml Urine Color Urine Appearance (Clear) Urine pH (4.5-7.5) Ur Specific [place] (1.000-1.030) Urine Protein (Negative) Urine Glucose (UA) (Negative) Urine Ketones (Negative) Urine Blood (Negative) Urine Nitrite (Negative) Urine Bilirubin (Negative) Urine Urobilinogen (Negative) Ur Leukocyte Esterase (Negative) Urine WBC (Auto) (0-5) /hpf Urine RBC (Auto) (0-2) /hpf U Hyaline Cast (Auto) (0-2) /lpf U Epithel Cells (Auto) (0-2) /hpf Urine Bacteria (Auto) (None Seen) Hyaline Casts (None Presnt) /lpf Urine Osmolality (500-800) mOsm/kg Ur Random Sodium mmol/L Nasal Screen MRSA (PCR) (Negative) Adenovirus (PCR) (NotDetected) B. pertussis DNA (PCR) (NotDetected) B.parapertussis DNA PCR (NotDetected) C. pneumoniae DNA (PCR) (NotDetected) Coronavirus OC43 (PCR) (NotDetected) Coronavirus HKU1 (PCR) (NotDetected) Coronavirus 229E (PCR) (NotDetected) SARS-CoV-2 (PCR) (NotDetected) Coronavirus NL63 (PCR) (NotDetected) Human Metapneumovir PCR (NotDetected) Influenza Type A (PCR) (NotDetected) Influenza Type B (PCR) (NotDetected) M. pneumoniae (PCR) (NotDetected) Parainfluenza 1 (PCR) (NotDetected) Parainfluenza 2 (PCR) (NotDetected) Parainfluenza 3 (PCR) (NotDetected) Parainfluenza 4 (PCR) (NotDetected) RSV (PCR) (NotDetected) Entero/Rhino (PCR) (NotDetected) Blood Type Blood Type Recheck Antibody Screen Crossmatch 02/10/24 02/10/24 02/10/24 Range/Units 17:27 18:20 18:34 WBC (4.8-10.8) K/ul RBC (4.20-5.40) M/uL Hgb (12.0-16.0) g/dl POC Hgb (12.0-16.0) g/dl Hct (37.0-47.0) % POC Hct (37-47) % MCV (80.0-100.0) fL MCH (25.0-34.0) pg MCHC (32.0-36.0) g/dL RDW Std Deviation (36.4-46.3) fL RDW Coeff of Lara (11.5-14.5) % Plt Count (130-400) K/uL MPV (9.4-12.4) fL Immature Gran % (Auto) % Neut % (Auto) % Lymph % (Auto) % [place] % (Auto) % Eos % (Auto) % Baso % (Auto) % Reticulocyte % (Auto) (0.50-2.00) % Neut # (Auto) (1.40-6.50) K/uL Lymph # (Auto) (1.20-3.40) K/uL [place] # (Auto) (0.11-0.59) K/uL Eos # (Auto) (0.00-0.50) K/uL Baso # (Auto) (0.00-0.20) K/uL Reticulocyte # (0.020-0.100) 10^6/uL Immature Gran # (Auto) (0.01-0.20) K/uL RBC Morphology PT (9.0-12.0) Seconds INR (0.9-1.1) APTT (21-31) Seconds PTT Ratio Specimen Type POC pH (7.35-7.45) POC pCO2 (35-46) mmHg POC pO2 (80-95) mmHg POC HCO3 (19-24) mitchell/L POC Total CO2 (24-31) mmol/L POC Base Excess (-9-1.8) mitchell/L POC ABG O2 Sat (90-95) % VBG pH (7.36-7.41) VBG pCO2 (38-50) mmHg VBG pO2 mmHg VBG HCO3 mmol/L VBG O2 Saturation % VBG Base Excess mEq/L POC Sodium (135-144) mmol/L Sodium (136-145) mmol/L POC Potassium (3.3-5.0) mmol/L Potassium (3.5-5.1) mmol/L Chloride (98-107) mmol/L Carbon Dioxide (21-32) mmol/L Anion Gap (3-11) BUN (6-23) mg/dl Creatinine (0.6-1.2) mg/dl Est Cr Clr Drug Dosing eGFR BUN/Creatinine Ratio (10-20) Glucose (70-99(Fasting)) mg/dl Osmolality (280-300) mOsm/kg Lactate (0.4-2.0) mmol/L Calcium (8.6-10.3) mg/dl Magnesium (1.7-2.4) mg/dl Iron (35-150) mcg/dl Unsaturated IBC (155-355) mcg/dl Transferrin (200-360) mg/dl Ferritin (8-388) ng/ml Total Bilirubin (0.2-1.0) mg/dl AST (13-39) U/L ALT (7-52) U/L Alkaline Phosphatase (34-104) U/L Total Creatine Kinase (26-192) U/L Troponin I High Sens (0-14) pg/ml B-Natriuretic Peptide (0-100) pg/ml Total Protein (6.0-8.3) gm/dl Albumin (3.4-5.0) gm/dl Globulin (2.5-4.0) gm/dl Albumin/Globulin Ratio (0.9-2) Vitamin B12 (180-914) pg/ml Folate (>5.38) ng/ml Procalcitonin (0-0.5) ng/ml TSH (0.300-4.500) uIu/ml Urine Color Urine Appearance (Clear) Urine pH (4.5-7.5) Ur Specific [place] (1.000-1.030) Urine Protein (Negative) Urine Glucose (UA) (Negative) Urine Ketones (Negative) Urine Blood (Negative) Urine Nitrite (Negative) Urine Bilirubin (Negative) Urine Urobilinogen (Negative) Ur Leukocyte Esterase (Negative) Urine WBC (Auto) (0-5) /hpf Urine RBC (Auto) (0-2) /hpf U Hyaline Cast (Auto) (0-2) /lpf U Epithel Cells (Auto) (0-2) /hpf Urine Bacteria (Auto) (None Seen) Hyaline Casts (None Presnt) /lpf Urine Osmolality (500-800) mOsm/kg Ur Random Sodium mmol/L Nasal Screen MRSA (PCR) Negative (Negative) Adenovirus (PCR) Not Detected (NotDetected) B. pertussis DNA (PCR) Not Detected (NotDetected) B.parapertussis DNA PCR Not Detected (NotDetected) C. pneumoniae DNA (PCR) Not Detected (NotDetected) Coronavirus OC43 (PCR) Not Detected (NotDetected) Coronavirus HKU1 (PCR) Not Detected (NotDetected) Coronavirus 229E (PCR) Not Detected (NotDetected) SARS-CoV-2 (PCR) Not Detected (NotDetected) Coronavirus NL63 (PCR) Not Detected (NotDetected) Human Metapneumovir PCR Not Detected (NotDetected) Influenza Type A (PCR) Not Detected (NotDetected) Influenza Type B (PCR) Not Detected (NotDetected) M. pneumoniae (PCR) Not Detected (NotDetected) Parainfluenza 1 (PCR) Not Detected (NotDetected) Parainfluenza 2 (PCR) Not Detected (NotDetected) Parainfluenza 3 (PCR) Not Detected (NotDetected) Parainfluenza 4 (PCR) Not Detected (NotDetected) RSV (PCR) Not Detected (NotDetected) Entero/Rhino (PCR) Not Detected (NotDetected) Blood Type O Positive Blood Type Recheck O Positive Antibody Screen NEGATIVE Crossmatch See Detail 02/10/24 02/10/24 02/10/24 Range/Units 20:04 20:31 20:38 WBC (4.8-10.8) K/ul RBC (4.20-5.40) M/uL Hgb (12.0-16.0) g/dl POC Hgb 6.1 L* (12.0-16.0) g/dl Hct (37.0-47.0) % POC Hct 18 L* (37-47) % MCV (80.0-100.0) fL MCH (25.0-34.0) pg MCHC (32.0-36.0) g/dL RDW Std Deviation (36.4-46.3) fL RDW Coeff of Lara (11.5-14.5) % Plt Count (130-400) K/uL MPV (9.4-12.4) fL Immature Gran % (Auto) % Neut % (Auto) % Lymph % (Auto) % [place] % (Auto) % Eos % (Auto) % Baso % (Auto) % Reticulocyte % (Auto) (0.50-2.00) % Neut # (Auto) (1.40-6.50) K/uL Lymph # (Auto) (1.20-3.40) K/uL [place] # (Auto) (0.11-0.59) K/uL Eos # (Auto) (0.00-0.50) K/uL Baso # (Auto) (0.00-0.20) K/uL Reticulocyte # (0.020-0.100) 10^6/uL Immature Gran # (Auto) (0.01-0.20) K/uL RBC Morphology PT (9.0-12.0) Seconds INR (0.9-1.1) APTT (21-31) Seconds PTT Ratio Specimen Type Arterial POC pH 7.28 L (7.35-7.45) POC pCO2 39 (35-46) mmHg POC pO2 399 H (80-95) mmHg POC HCO3 18 L (19-24) mitchell/L POC Total CO2 19 L (24-31) mmol/L POC Base Excess -9.0 (-9-1.8) mitchell/L POC ABG O2 Sat 100.0 H (90-95) % VBG pH (7.36-7.41) VBG pCO2 (38-50) mmHg VBG pO2 mmHg VBG HCO3 mmol/L VBG O2 Saturation % VBG Base Excess mEq/L POC Sodium 121 L (135-144) mmol/L Sodium (136-145) mmol/L POC Potassium 4.0 (3.3-5.0) mmol/L Potassium (3.5-5.1) mmol/L Chloride (98-107) mmol/L Carbon Dioxide (21-32) mmol/L Anion Gap (3-11) BUN (6-23) mg/dl Creatinine (0.6-1.2) mg/dl Est Cr Clr Drug Dosing eGFR BUN/Creatinine Ratio (10-20) Glucose (70-99(Fasting)) mg/dl Osmolality (280-300) mOsm/kg Lactate (0.4-2.0) mmol/L Calcium (8.6-10.3) mg/dl Magnesium (1.7-2.4) mg/dl Iron (35-150) mcg/dl Unsaturated IBC (155-355) mcg/dl Transferrin (200-360) mg/dl Ferritin (8-388) ng/ml Total Bilirubin (0.2-1.0) mg/dl AST (13-39) U/L ALT (7-52) U/L Alkaline Phosphatase (34-104) U/L Total Creatine Kinase 223 H (26-192) U/L Troponin I High Sens 2901.9 H* D (0-14) pg/ml B-Natriuretic Peptide 1106 H (0-100) pg/ml Total Protein (6.0-8.3) gm/dl Albumin (3.4-5.0) gm/dl Globulin (2.5-4.0) gm/dl Albumin/Globulin Ratio (0.9-2) Vitamin B12 (180-914) pg/ml Folate (>5.38) ng/ml Procalcitonin (0-0.5) ng/ml TSH (0.300-4.500) uIu/ml Urine Color Urine Appearance (Clear) Urine pH (4.5-7.5) Ur Specific [place] (1.000-1.030) Urine Protein (Negative) Urine Glucose (UA) (Negative) Urine Ketones (Negative) Urine Blood (Negative) Urine Nitrite (Negative) Urine Bilirubin (Negative) Urine Urobilinogen (Negative) Ur Leukocyte Esterase (Negative) Urine WBC (Auto) (0-5) /hpf Urine RBC (Auto) (0-2) /hpf U Hyaline Cast (Auto) (0-2) /lpf U Epithel Cells (Auto) (0-2) /hpf Urine Bacteria (Auto) (None Seen) Hyaline Casts (None Presnt) /lpf Urine Osmolality (500-800) mOsm/kg Ur Random Sodium mmol/L Nasal Screen MRSA (PCR) (Negative) Adenovirus (PCR) (NotDetected) B. pertussis DNA (PCR) (NotDetected) B.parapertussis DNA PCR (NotDetected) C. pneumoniae DNA (PCR) (NotDetected) Coronavirus OC43 (PCR) (NotDetected) Coronavirus HKU1 (PCR) (NotDetected) Coronavirus 229E (PCR) (NotDetected) SARS-CoV-2 (PCR) (NotDetected) Coronavirus NL63 (PCR) (NotDetected) Human Metapneumovir PCR (NotDetected) Influenza Type A (PCR) (NotDetected) Influenza Type B (PCR) (NotDetected) M. pneumoniae (PCR) (NotDetected) Parainfluenza 1 (PCR) (NotDetected) Parainfluenza 2 (PCR) (NotDetected) Parainfluenza 3 (PCR) (NotDetected) Parainfluenza 4 (PCR) (NotDetected) RSV (PCR) (NotDetected) Entero/Rhino (PCR) (NotDetected) Blood Type Blood Type Recheck Antibody Screen Crossmatch 02/10/24 Range/Units 20:39 WBC (4.8-10.8) K/ul RBC (4.20-5.40) M/uL Hgb (12.0-16.0) g/dl POC Hgb (12.0-16.0) g/dl Hct (37.0-47.0) % POC Hct (37-47) % MCV (80.0-100.0) fL MCH (25.0-34.0) pg MCHC (32.0-36.0) g/dL RDW Std Deviation (36.4-46.3) fL RDW Coeff of Lara (11.5-14.5) % Plt Count (130-400) K/uL MPV (9.4-12.4) fL Immature Gran % (Auto) % Neut % (Auto) % Lymph % (Auto) % [place] % (Auto) % Eos % (Auto) % Baso % (Auto) % Reticulocyte % (Auto) (0.50-2.00) % Neut # (Auto) (1.40-6.50) K/uL Lymph # (Auto) (1.20-3.40) K/uL [place] # (Auto) (0.11-0.59) K/uL Eos # (Auto) (0.00-0.50) K/uL Baso # (Auto) (0.00-0.20) K/uL Reticulocyte # (0.020-0.100) 10^6/uL Immature Gran # (Auto) (0.01-0.20) K/uL RBC Morphology PT (9.0-12.0) Seconds INR (0.9-1.1) APTT (21-31) Seconds PTT Ratio Specimen Type POC pH (7.35-7.45) POC pCO2 (35-46) mmHg POC pO2 (80-95) mmHg POC HCO3 (19-24) mitchell/L POC Total CO2 (24-31) mmol/L POC Base Excess (-9-1.8) mitchell/L POC ABG O2 Sat (90-95) % VBG pH (7.36-7.41) VBG pCO2 (38-50) mmHg VBG pO2 mmHg VBG HCO3 mmol/L VBG O2 Saturation % VBG Base Excess mEq/L POC Sodium (135-144) mmol/L Sodium (136-145) mmol/L POC Potassium (3.3-5.0) mmol/L Potassium (3.5-5.1) mmol/L Chloride (98-107) mmol/L Carbon Dioxide (21-32) mmol/L Anion Gap (3-11) BUN (6-23) mg/dl Creatinine (0.6-1.2) mg/dl Est Cr Clr Drug Dosing eGFR BUN/Creatinine Ratio (10-20) Glucose (70-99(Fasting)) mg/dl Osmolality (280-300) mOsm/kg Lactate (0.4-2.0) mmol/L Calcium (8.6-10.3) mg/dl Magnesium (1.7-2.4) mg/dl Iron (35-150) mcg/dl Unsaturated IBC (155-355) mcg/dl Transferrin (200-360) mg/dl Ferritin (8-388) ng/ml Total Bilirubin (0.2-1.0) mg/dl AST (13-39) U/L ALT (7-52) U/L Alkaline Phosphatase (34-104) U/L Total Creatine Kinase (26-192) U/L Troponin I High Sens (0-14) pg/ml B-Natriuretic Peptide (0-100) pg/ml Total Protein (6.0-8.3) gm/dl Albumin (3.4-5.0) gm/dl Globulin (2.5-4.0) gm/dl Albumin/Globulin Ratio (0.9-2) Vitamin B12 (180-914) pg/ml Folate (>5.38) ng/ml Procalcitonin (0-0.5) ng/ml TSH (0.300-4.500) uIu/ml Urine Color Dark Yellow Urine Appearance Clear (Clear) Urine pH 5.0 (4.5-7.5) Ur Specific [place] 1.021 (1.000-1.030) Urine Protein Trace H (Negative) Urine Glucose (UA) Negative (Negative) Urine Ketones Trace H (Negative) Urine Blood Negative (Negative) Urine Nitrite Negative (Negative) Urine Bilirubin 1+ H (Negative) Urine Urobilinogen Negative (Negative) Ur Leukocyte Esterase Trace H (Negative) Urine WBC (Auto) 0-5 (0-5) /hpf Urine RBC (Auto) 0-2 (0-2) /hpf U Hyaline Cast (Auto) 6-10 H (0-2) /lpf U Epithel Cells (Auto) 0-2 (0-2) /hpf Urine Bacteria (Auto) None Seen (None Seen) Hyaline Casts Present A (None Presnt) /lpf Urine Osmolality 375 L (500-800) mOsm/kg Ur Random Sodium 12 mmol/L Nasal Screen MRSA (PCR) (Negative) Adenovirus (PCR) (NotDetected) B. pertussis DNA (PCR) (NotDetected) B.parapertussis DNA PCR (NotDetected) C. pneumoniae DNA (PCR) (NotDetected) Coronavirus OC43 (PCR) (NotDetected) Coronavirus HKU1 (PCR) (NotDetected) Coronavirus 229E (PCR) (NotDetected) SARS-CoV-2 (PCR) (NotDetected) Coronavirus NL63 (PCR) (NotDetected) Human Metapneumovir PCR (NotDetected) Influenza Type A (PCR) (NotDetected) Influenza Type B (PCR) (NotDetected) M. pneumoniae (PCR) (NotDetected) Parainfluenza 1 (PCR) (NotDetected) Parainfluenza 2 (PCR) (NotDetected) Parainfluenza 3 (PCR) (NotDetected) Parainfluenza 4 (PCR) (NotDetected) RSV (PCR) (NotDetected) Entero/Rhino (PCR) (NotDetected) Blood Type Blood Type Recheck Antibody Screen Crossmatch Administered Medications Norepinephrine Bitartrate (Levophed/D5w) 4 mg in 250 mls @ 15.225 mls/hr IV .[id number] AVANI; Protocol Stop: 03/11/24 20:14 Last Titration: 02/11/24 05:40 Dose: 0.07 mcg/kg/min, 15.2 mls/hr Documented By: Titration: 02/11/24 04:19 Dose: 0.08 mcg/kg/min, 17.4 mls/hr Documented By: Titration: 02/11/24 03:58 Dose: 0.05 mcg/kg/min, 10.9 mls/hr Documented By: Titration: 02/11/24 00:16 Dose: 0.08 mcg/kg/min, 17.4 mls/hr Documented By: Titration: 02/10/24 21:56 Dose: 0.11 mcg/kg/min, 23.9 mls/hr Documented By: Titration: 02/10/24 20:41 Dose: 0.09 mcg/kg/min, 19.6 mls/hr Documented By: Titration: 02/10/24 20:32 Dose: 0.07 mcg/kg/min, 15.2 mls/hr Documented By: Admin: 02/10/24 20:17 Dose: 0.05 mcg/kg/min, 10.9 mls/hr Documented By: Co-signed By: ARON Piperacillin Sod/Tazobactam Sod (Zosyn) 4.5 gm in 100 mls @ 25 mls/hr IV Q12H AVANI; Protocol Stop: 02/18/24 03:59 Last Admin: 02/11/24 03:41 Dose: 25 mls/hr Documented By: CP Sodium Chloride (Nss) 1,000 mls @ 125 mls/hr IV .Q8H AVANI Stop: 02/12/24 03:59 Last Admin: 02/11/24 04:24 Dose: 125 mls/hr Documented By: CP Dexmedetomidine/Sodium Chloride (Precedex) 200 mcg in 50 mls @ 14.5 mls/hr IV .Q3H27M AVANI; Protocol Stop: 02/15/24 04:14 Last Titration: 02/11/24 06:18 Dose: 1 mcg/kg/hr, 14.5 mls/hr Documented By: Titration: 02/11/24 05:59 Dose: 0.9 mcg/kg/hr, 13.1 mls/hr Documented By: Titration: 02/11/24 05:40 Dose: 0.8 mcg/kg/hr, 11.6 mls/hr Documented By: Titration: 02/11/24 05:32 Dose: 0.7 mcg/kg/hr, 10.2 mls/hr Documented By: Titration: 02/11/24 05:15 Dose: 0.6 mcg/kg/hr, 8.7 mls/hr Documented By: Titration: 02/11/24 05:02 Dose: 0.5 mcg/kg/hr, 7.3 mls/hr Documented By: Admin: 02/11/24 04:47 Dose: 0.4 mcg/kg/hr, 5.8 mls/hr Documented By: CP Co-signed By: SASKIA Insulin Aspart (Insulin Aspart Per Unit Charge) 0 units SC Q6 [facility] Stop: 03/11/24 22:53 Last Admin: 02/11/24 05:30 Dose: Not Given Documented By: Admin: 02/11/24 00:07 Dose: 6 units Documented By: DAPHNEY Co-signed By: SASKIA Ipratropium [place] (Ipratropium [place] Neb Soln 0.02% 0.5mg/2.5ml Vial) 0.5 mg INH Q6R [facility] Stop: 03/11/24 21:59 Last Admin: 02/11/24 01:45 Dose: 0.5 mg Documented By: Admin: 02/10/24 23:40 Dose: 0.5 mg Documented By: EML Levalbuterol HCl (Levalbuterol 1.25 Mg/3 Ml Neb) 1.25 mg NEB Q6R [facility] Stop: 03/11/24 21:59 Last Admin: 02/11/24 01:45 Dose: 1.25 mg Documented By: Admin: 02/10/24 23:40 Dose: 1.25 mg Documented By: EML Trazodone HCl (Trazodone Hcl 100 Mg Tab) 100 mg PO HS PRN PRN Reason: Insomnia Stop: 03/12/24 01:27 Last Admin: 02/11/24 02:10 Dose: 100 mg Documented By: DAPHNEY Discontinued Medications Albuterol (Albut/Ipratrop 3mg/0.5mg Neb 3 Ml Vial) 12 ml NEB ONE ONE; Protocol Stop: 02/10/24 19:39 Last Admin: 02/10/24 19:54 Dose: 12 ml Documented By: CEF Albuterol (Albut/Ipratrop 3mg/0.5mg Neb 3 Ml Vial) Confirm Administered Dose 12 ml .ROUTE .STK-MED ONE Stop: 02/10/24 19:40 Last Admin: 02/10/24 19:58 Dose: Not Given Documented By: CECIL Sodium Chloride (Nss) 1,000 mls @ 999 mls/hr IV .Q1H1M ONE Stop: 02/10/24 17:19 Last Infusion: 02/10/24 20:24 Dose: Infused Documented By: Admin: 02/10/24 17:20 Dose: 999 mls/hr Documented By: CEF Piperacillin Sod/Tazobactam Sod (Zosyn) 4.5 gm in 100 mls @ 200 mls/hr IV NOW ONE; Protocol Stop: 02/10/24 18:40 Last Infusion: 02/10/24 19:51 Dose: Infused Documented By: Admin: 02/10/24 19:21 Dose: 200 mls/hr Documented By: CEF Sodium Chloride (Nss) 250 mls @ 999 mls/hr IV .Q16M ONE Stop: 02/10/24 20:22 Last Infusion: 02/11/24 00:15 Dose: Infused Documented By: Admin: 02/10/24 21:18 Dose: 999 mls/hr Documented By: RAINA Vancomycin HCl 1,500 mg/ (Dextrose) 530 mls @ 200 mls/hr IV NOW ONE Stop: 02/10/24 22:53 Last Infusion: 02/11/24 00:15 Dose: Infused Documented By: Admin: 02/10/24 20:35 Dose: 200 mls/hr Documented By: RAINA Magnesium Sulfate/Dextrose (Magnesium Sulfate / D5w) 1 gm in 100 mls @ 50 mls/hr IV ONE ONE Stop: 02/10/24 22:13 Last Infusion: 02/11/24 00:14 Dose: Infused Documented By: Admin: 02/10/24 22:19 Dose: 50 mls/hr Documented By: RAINA Dexamethasone 4 mg/ Syringe 1 mls @ 1 mls/min IV ONE ONE Stop: 02/10/24 20:40 Last Admin: 02/10/24 22:18 Dose: 1 mls/min Documented By: RAINA Potassium Chloride/Sodium Chloride (Normal Saline W/20 Meq Kcl) 20 meq in 1,000 mls @ 200 mls/hr IV .Q5H ONE Stop: 02/11/24 01:41 Last Admin: 02/11/24 00:09 Dose: Not Given Documented By: DAPHNEY Pantoprazole Sodium 80 mg/ (Dextrose) 120 mls @ 480 mls/hr IV ONE STA Stop: 02/10/24 21:59 Last Infusion: 02/11/24 00:14 Dose: Infused Documented By: Admin: 02/10/24 23:04 Dose: 480 mls/hr Documented By: DAPHNEY Pantoprazole Sodium 40 mg/ (Dextrose) 100 mls @ 20 mls/hr IV Q5H AVANI Stop: 03/11/24 21:59 Last Infusion: 02/11/24 00:14 Dose: Infused Documented By: Admin: 02/10/24 23:23 Dose: 8 mg/hr, 20 mls/hr Documented By: DAPHNEY Sodium Chloride (Nss) 500 mls @ 999 mls/hr IV .Q31M ONE Stop: 02/11/24 00:06 Last Infusion: 02/11/24 00:15 Dose: Infused Documented By: Admin: 02/11/24 00:00 Dose: 999 mls/hr Documented By: DAPHNEY Sodium Chloride (Nss) 500 mls @ 125 mls/hr IV .Q4H AVANI Stop: 02/11/24 03:44 Last Infusion: 02/11/24 04:34 Dose: Infused Documented By: Admin: 02/11/24 00:40 Dose: 125 mls/hr Documented By: DAPHNEY Ioversol (Optiray 320 125ml) 117 ml IV ONCE ONE Stop: 02/10/24 18:56 Last Admin: 02/10/24 18:55 Dose: 117 ml Documented By: DEBORA Lorazepam (Lorazepam 2 Mg/1 Ml Vial) 0.5 mg IV ONE STA Stop: 02/11/24 03:53 Last Admin: 02/11/24 03:56 Dose: 0.5 mg Documented By: LACI Lorazepam (Lorazepam 2 Mg/1 Ml Vial) Confirm Administered Dose 2 mg .ROUTE .STK- MED ONE Stop: 02/11/24 03:52 Last Admin: 02/11/24 03:56 Dose: Not Given Documented By: LACI Methylprednisolone (Methylprednisolone 125 Mg/2 Ml Vial) 40 mg IV Q8H AVANI Stop: 02/10/24 23:59 Last Admin: 02/11/24 01:12 Dose: 40 mg Documented By: DAPHNEY Miscellaneous (Stat Iv Infusion Titration Per Protocol) 1 each N/A NOW STA; Protocol Stop: 02/10/24 20:02 Last Admin: 02/10/24 23:23 Dose: Not Given Documented By: DAPHNEY Olanzapine (Olanzapine 10 Mg/2.1 Ml Sdv) 2.5 mg IM NOW STA Stop: 02/10/24 21:57 Last Admin: 02/10/24 23:06 Dose: Not Given Documented By: DAPHNEY Imaging Data Radiologist's Impression: Abdomen/Pelvis CT 02/10/24 17:50 Exam(s): CT ABDOMEN + PELVIS With Contrast IV Amt: 117 cc opti 320 EXAM: CT Abdomen and Pelvis With Intravenous Contrast CLINICAL HISTORY: Reason for exam: lung CA, fall, hip pain, anemia. TECHNIQUE: Axial computed tomography images of the abdomen and pelvis with intravenous contrast. CTDI is 22.43 mGy and DLP is 429.22 mGy-cm. Automated exposure control was utilized for the study. A dose lowering technique was utilized adhering to the principles of ALARA. CONTRAST: Patient received 117 cc opti 320 of IV contrast COMPARISON: No relevant prior studies available. FINDINGS: ABDOMEN: Liver: Unremarkable. Gallbladder and bile ducts: Cholecystectomy. Pancreas: Unremarkable. Spleen: Unremarkable. Adrenals: Unremarkable. Kidneys and ureters: Poorly enhancing left kidney small in size. Right kidney unremarkable. Stomach and bowel: Unremarkable. PELVIS: Appendix: No findings to suggest acute appendicitis. Bladder: Unremarkable. Reproductive: Unremarkable as visualized. ABDOMEN and PELVIS: Intraperitoneal space: Unremarkable. No free air. No significant fluid collection. Bones/joints: No acute fracture. Heterogeneous appearance of the marrow within the pelvis. Bilateral hip arthroplasties. Degenerative changes in the lumbar spine. L5 pars defects. Severe degenerative changes at L4-5 and L5-S1. Soft tissues: Unremarkable. Vasculature: Advanced atherosclerotic calcifications. AAA measuring 4. 1 cm. 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 Lymph nodes: Unremarkable. IMPRESSION: 1. No acute fracture. Heterogeneous appearance of the marrow within the pelvis. Cannot exclude underlying metastatic disease. Consider MRI. 2. Advanced atherosclerotic calcifications. AAA measuring 4.1 cm. 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 Electronically signed by: Felix Russell MD 02/10/24 20:[address] 02/10/24 17:50 Exam(s): CT C SPINE EXAM: CT Cervical Spine Without Intravenous Contrast CLINICAL HISTORY: Reason for exam: lung CA, fall, hip pain. TECHNIQUE: Axial computed tomography images of the cervical spine without intravenous contrast. CTDI is 19.93 mGy and DLP is 693.39 mGy-cm. Automated exposure control was utilized for the study. A dose lowering technique was utilized adhering to the principles of ALARA. COMPARISON: No relevant prior studies available. FINDINGS: Vertebrae: No fracture or malalignment. Severe degenerative disc disease at C3-4, C4-5, C5-6, and C6-7. No severe spinal canal stenosis. Multilevel foraminal stenosis of variable degrees. Soft tissues: Interstitial thickening and nodularity at the left lung apex. IMPRESSION: 1. No fracture within the cervical spine. 2. Interstitial thickening and nodularity at the left lung apex. Electronically signed by: Felix Russell MD 02/10/24 21:19 PM Chest CTA 02/10/24 17:50 Exam(s): CTA CHEST IV Amt: 117 cc opti 320 EXAM: CT Angiography Chest With Intravenous Contrast CLINICAL HISTORY: Reason for exam: lung CA, Trop 4700, r/o pe. TECHNIQUE: Axial computed tomographic angiography images of the chest with intravenous contrast. CTDI is 34.77 mGy and DLP is 624.41 mGy-cm. Automated exposure control was utilized for the study. A dose lowering technique was utilized adhering to the principles of ALARA. MIP reconstructed images were created and reviewed. COMPARISON: No relevant prior studies available. FINDINGS: Pulmonary arteries: No pulmonary embolism. Aorta: No acute findings. Normal caliber. No dissection. Lungs: Extensive consolidation in the left lower lobe. More nodular appearing lesions in the left upper lobe some of which demonstrate early cavitation. Cavitating lesion in the right lower lobe with wall thickening measuring up to 4.3 cm. Heterogeneous opacity in the right upper lobe with what appears to be a peripheral rim measuring 4.3 cm (series 10 image 88). Linear nodularity in the posterior right upper lobe measuring 3.7 x 1.5 cm. Pleural space: Unremarkable. Heart: Heart size mildly prominent. Severe CAD. Mediastinum: Moderate hiatal hernia. Bones/joints: No acute fracture. Soft tissues: Unremarkable. Lymph nodes: Unremarkable. IMPRESSION: 1. No pulmonary embolism. 2. Extensive consolidation in the left lower lobe. 3. More nodular appearing lesions in the left upper lobe some of which demonstrate early cavitation. 4. Cavitating lesion in the right lower lobe with wall thickening measuring up to 4.3 cm. 5. Heterogeneous opacity in the right upper lobe with what appears to be a peripheral rim measuring 4.3 cm (series 10 image 88). 6. Linear nodularity in the posterior right upper lobe measuring 3.7 x 1. 5 cm. 7. Moderate hiatal hernia. 8. Heart size mildly prominent. Severe CAD. Electronically signed by: Felix Russell MD 02/10/24 19:[address] 02/10/24 17:50 CR Exam(s): CT HEAD Without Contrast EXAM: CT Head Without Intravenous Contrast CLINICAL HISTORY: Reason for exam: lung CA, fall, pain. TECHNIQUE: Axial computed tomography images of the head/brain without intravenous contrast. CTDI is 34.77 mGy and DLP is 624.41 mGy-cm. Automated exposure control was utilized for the study. A dose lowering technique was utilized adhering to the principles of ALARA. COMPARISON: No relevant prior studies available. FINDINGS: Artifacts: Images are degraded by motion artifact. Brain: No hemorrhage, extra-axial fluid collection, mass effect, or edema. Age indeterminate infarct within the right parietal cortex (series 5 image 11). Ventricles: Unremarkable. Bones/joints: Unremarkable. No fracture. Soft tissues: Unremarkable. Sinuses: No acute sinusitis. Mastoid air cells: Unremarkable as visualized. IMPRESSION: 1. No intracranial hemorrhage or traumatic injury identified. 2. 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 Correlate clinically. Consider MRI if there is concern for acute ischemia. Communications: Verify Receipt Electronically signed by: Felix Russell MD 02/10/24 20:58 PM Discharge Plan Visit Data Chief Complaint: Weakness Stated Complaint: NOT EATING, LETHARGIC, CHEMO, FALL ED Provider: Giorgio Monroy Discharge Problem: Septic shock, Anemia, Pneumonia, Lung cancer, Elevated troponin, Acute on chronic renal insufficiency, Respiratory failure, acute and chronic, Hypomagnesemia Patient Disposition: Admitted As Inpatient Discharge Instructions Interventions: ED Discharge Assessment Last Done: 02/10/24 22:15 Discharge Problem: Anemia Qualifiers: Anemia type: unspecified type Qualified Code(s): D64.9 - Anemia, unspecified Pneumonia Qualifiers: Pneumonia type: due to unspecified organism Laterality: left Lung location: l ower lobe of lung Qualified Code(s): J18.9 - Pneumonia, unspecified organism Lung cancer Qualifiers: Laterality: unspecified laterality Lung location: unspecified part of lung Q ualified Code(s): C34.90 - Malignant neoplasm of unspecified part of unspecified bronchus or lung Respiratory failure, acute and chronic Qualifiers: Respiratory failure complication: hypoxia Qualified Code(s): J96.21 - Acute and chronic respiratory failure with hypoxia
--- NOTE | 2024-02-10 18:13 | XRay Report ---
EXAM: Radiographs of the Right Ankle 3 Views INDICATION: Fall. TECHNIQUE: Frontal, lateral and oblique views of the right ankle. COMPARISON: No relevant prior studies available. FINDINGS: Limitations: None. Bones/joints: There is mild spurring along the medial malleolus presumably related to previous trauma. Well-corticated ossicle seen on the lateral view projecting at the talar neck. There is a defined lucency at the proximal tip of the fifth metatarsal tubercle with small adjacent well-corticated ossification. Ankle mortise intact. Soft tissues: Mild periarticular soft tissue swelling. No soft tissue gas collection or radiopaque foreign body. IMPRESSION: Age-indeterminate fracture proximal tip of the fifth metatarsal tubercle. ACT 112: Negative or not required by law. Electronically signed by Anny Pelayo 02-10-2024 6:13 PM
[2024-02-10 18:33] LABS: Folate (Folic Acid),Ser orPlas 14.6 ng/ml (>5.38)
[2024-02-10] MEDS: OPTIRAY 320 125ml IV ONE (18:55)
[2024-02-10] MEDS: PIPERACILLIN/TAZOBACTAM 4.5 GM/100 ML BAG IV ONE (19:21)
[2024-02-10 19:31] LABS: Adenovirus PCR Not Detected (NotDetected); Bordetella parapertussis PCR Not Detected (NotDetected); Bordetella pertussis PCR Not Detected (NotDetected); Chlamydia pneumoniae PCR Not Detected (NotDetected); Coronavirus 229E PCR Not Detected (NotDetected); Coronavirus CoV-2 (COVID19)PCR Not Detected (NotDetected); Coronavirus HKU1 PCR Not Detected (NotDetected); Coronavirus NL63 PCR Not Detected (NotDetected); Coronavirus OC43PCR Not Detected (NotDetected); Human Metapneumovirus PCR Not Detected (NotDetected); Influenza A PCR Not Detected (NotDetected); Influenza B PCR Not Detected (NotDetected); Mycoplasma pneumoniae PCR Not Detected (NotDetected); Parainfluenza Virus 1 PCR Not Detected (NotDetected); Parainfluenza Virus 2 PCR Not Detected (NotDetected); Parainfluenza Virus 3 PCR Not Detected (NotDetected); Parainfluenza Virus 4 PCR Not Detected (NotDetected); Respiratory Syncytial VirusPCR Not Detected (NotDetected); Rhinovirus/Enterovirus PCR Not Detected (NotDetected)
[2024-02-10] MEDS ORDERED: VANCOMYCIN HCL 1,500 MG in SODIUM CHLORIDE 0.9% 500 ML IV ONE (19:52)
[2024-02-10] MEDS ORDERED: VANCOMYCIN CONSULT ACTIVE PRN (19:52)
[2024-02-10] MEDS: ALBUT/IPRATROP 3MG/0.5MG NEB 3 ML VIAL NEB ONE (19:54)
--- NOTE | 2024-02-10 19:57 | CT Scan Report ---
Exam(s): CTA CHEST IV Amt: 117 cc opti 320 EXAM: CT Angiography Chest With Intravenous Contrast CLINICAL HISTORY: Reason for exam: lung CA, Trop 4700, r/o pe. TECHNIQUE: Axial computed tomographic angiography images of the chest with intravenous contrast. CTDI is 34.77 mGy and DLP is 624.41 mGy-cm. Automated exposure control was utilized for the study. A dose lowering technique was utilized adhering to the principles of ALARA. MIP reconstructed images were created and reviewed. COMPARISON: No relevant prior studies available. FINDINGS: Pulmonary arteries: No pulmonary embolism. Aorta: No acute findings. Normal caliber. No dissection. Lungs: Extensive consolidation in the left lower lobe. More nodular appearing lesions in the left upper lobe some of which demonstrate early cavitation. Cavitating lesion in the right lower lobe with wall thickening measuring up to 4.3 cm. Heterogeneous opacity in the right upper lobe with what appears to be a peripheral rim measuring 4.3 cm (series 10 image 88). Linear nodularity in the posterior right upper lobe measuring 3.7 x 1.5 cm. Pleural space: Unremarkable. Heart: Heart size mildly prominent. Severe CAD. Mediastinum: Moderate hiatal hernia. Bones/joints: No acute fracture. Soft tissues: Unremarkable. Lymph nodes: Unremarkable. IMPRESSION: 1. No pulmonary embolism. 2. Extensive consolidation in the left lower lobe. 3. More nodular appearing lesions in the left upper lobe some of which demonstrate early cavitation. 4. Cavitating lesion in the right lower lobe with wall thickening measuring up to 4.3 cm. 5. Heterogeneous opacity in the right upper lobe with what appears to be a peripheral rim measuring 4.3 cm (series 10 image 88). 6. Linear nodularity in the posterior right upper lobe measuring 3.7 x 1. 5 cm. 7. Moderate hiatal hernia. 8. Heart size mildly prominent. Severe CAD. Electronically signed by: Felix Russell MD 02/10/24 19:56 PM
[2024-02-10] MEDS: ALBUT/IPRATROP 3MG/0.5MG NEB 3 ML VIAL ONE (19:58)
--- NOTE | 2024-02-10 20:00 | CT Scan Report ---
Exam(s): CT ABDOMEN + PELVIS With Contrast IV Amt: 117 cc opti 320 EXAM: CT Abdomen and Pelvis With Intravenous Contrast CLINICAL HISTORY: Reason for exam: lung CA, fall, hip pain, anemia. TECHNIQUE: Axial computed tomography images of the abdomen and pelvis with intravenous contrast. CTDI is 22.43 mGy and DLP is 429.22 mGy-cm. Automated exposure control was utilized for the study. A dose lowering technique was utilized adhering to the principles of ALARA. CONTRAST: Patient received 117 cc opti 320 of IV contrast COMPARISON: No relevant prior studies available. FINDINGS: ABDOMEN: Liver: Unremarkable. Gallbladder and bile ducts: Cholecystectomy. Pancreas: Unremarkable. Spleen: Unremarkable. Adrenals: Unremarkable. Kidneys and ureters: Poorly enhancing left kidney small in size. Right kidney unremarkable. Stomach and bowel: Unremarkable. PELVIS: Appendix: No findings to suggest acute appendicitis. Bladder: Unremarkable. Reproductive: Unremarkable as visualized. ABDOMEN and PELVIS: Intraperitoneal space: Unremarkable. No free air. No significant fluid collection. Bones/joints: No acute fracture. Heterogeneous appearance of the marrow within the pelvis. Bilateral hip arthroplasties. Degenerative changes in the lumbar spine. L5 pars defects. Severe degenerative changes at L4-5 and L5-S1. Soft tissues: Unremarkable. Vasculature: Advanced atherosclerotic calcifications. AAA measuring 4. 1 cm. 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 Lymph nodes: Unremarkable. IMPRESSION: 1. No acute fracture. Heterogeneous appearance of the marrow within the pelvis. Cannot exclude underlying metastatic disease. Consider MRI. 2. Advanced atherosclerotic calcifications. AAA measuring 4.1 cm. 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 Electronically signed by: Felix Russell MD 02/10/24 20:00 PM
[2024-02-10] MEDS: NOREPINEPHRINE/D5W 4 MG/250 ML PLCT IV SCH (20:17)
[2024-02-10 20:18] LABS: iSTAT Arterial Blood Gas HCO3 18 meg/L (19-24); iSTAT Arterial Blood Gas pCO2 39 mmHg (35-46); iSTAT Arterial Blood Gas pH 7.28 (7.35-7.45); iSTAT Arterial Blood Gas pO2 399 mmHg (80-95); iSTAT Carbon Dioxide 19 mmol/L (24-31); iSTAT Hematocrit 18 % (37-47); iSTAT Hemoglobin 6.1 g/dl (12.0-16.0); iSTAT Sample Type Arterial; iSTAT Sodium 121 mmol/L (135-144)
[2024-02-10] MEDS: VANCOMYCIN HCL 1,500 MG in DEXTROSE 5% 500 ML IV ONE (20:35)
--- NOTE | 2024-02-10 20:59 | CT Scan Report ---
Exam(s): CT HEAD Without Contrast EXAM: CT Head Without Intravenous Contrast CLINICAL HISTORY: Reason for exam: lung CA, fall, pain. TECHNIQUE: Axial computed tomography images of the head/brain without intravenous contrast. CTDI is 34.77 mGy and DLP is 624.41 mGy-cm. Automated exposure control was utilized for the study. A dose lowering technique was utilized adhering to the principles of ALARA. COMPARISON: No relevant prior studies available. FINDINGS: Artifacts: Images are degraded by motion artifact. Brain: No hemorrhage, extra-axial fluid collection, mass effect, or edema. Age indeterminate infarct within the right parietal cortex (series 5 image 11). Ventricles: Unremarkable. Bones/joints: Unremarkable. No fracture. Soft tissues: Unremarkable. Sinuses: No acute sinusitis. Mastoid air cells: Unremarkable as visualized. IMPRESSION: 1. No intracranial hemorrhage or traumatic injury identified. 2. 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 Correlate clinically. Consider MRI if there is concern for acute ischemia. Communications: Verify Receipt Electronically signed by: Felix Russell MD 02/10/24 20:58 PM
[2024-02-10 21:18] LABS: Appearance Urine Clear (Clear); Bacteria Urine Automated None Seen (None Seen); Bilirubin Urine 1+ (Negative); Blood Urine Negative (Negative); Color Urine Dark Yellow; Epithelial Cell Urine Auto 0-2 /hpf (0-2); Glucose Urine UA Negative (Negative); Hyaline Casts Urine Present /lpf (None Presnt); Ketones Urine Trace (Negative); Leukocyte Esterase Urine Trace (Negative); Nitrite Urine Negative (Negative); Protein Urine Trace (Negative); RBC Urine Automated 0-2 /hpf (0-2); Specific Gravity Urine 1.021 (1.000-1.030); Urobilinogen Urine Negative (Negative); WBC Urine Automated 0-5 /hpf (0-5)
[2024-02-10] MEDS: SODIUM CHLORIDE 0.9% 250 ML IV ONE (21:18)
--- NOTE | 2024-02-10 21:20 | CT Scan Report ---
Exam(s): CT C SPINE EXAM: CT Cervical Spine Without Intravenous Contrast CLINICAL HISTORY: Reason for exam: lung CA, fall, hip pain. TECHNIQUE: Axial computed tomography images of the cervical spine without intravenous contrast. CTDI is 19.93 mGy and DLP is 693.39 mGy-cm. Automated exposure control was utilized for the study. A dose lowering technique was utilized adhering to the principles of ALARA. COMPARISON: No relevant prior studies available. FINDINGS: Vertebrae: No fracture or malalignment. Severe degenerative disc disease at C3-4, C4-5, C5-6, and C6-7. No severe spinal canal stenosis. Multilevel foraminal stenosis of variable degrees. Soft tissues: Interstitial thickening and nodularity at the left lung apex. IMPRESSION: 1. No fracture within the cervical spine. 2. Interstitial thickening and nodularity at the left lung apex. Electronically signed by: Felix Russell MD 02/10/24 21:19 PM
[2024-02-10 21:31] LABS: Troponin I High Sensitivity 2901.9 pg/ml (0-14)
--- NOTE | 2024-02-10 21:47 | History & Physical Report ---
Date of Service February 10, 2024 Assessment & Plan (1) Encephalopathy: Plan: Multifactorial: Severe sepsis, SIRS plus hypoxemic respiratory failure plus ARF on CKD plus encephalopathy secondary to HCAP, possible aspiration, immunocompromised patient, history 2 lung primary malignancies ongoing chemotherapy/Tagrisso Rx ARF on CKD Acute on chronic hyponatremia, history SIADH Home neuropsychotropic medications contributory COPD exacerbation secondary to HCAP/possible aspiration Hypotension secondary to hypovolemia, sepsis, GI bleed Rule out structural cardiac dysfunction given marked troponin elevation Possible adrenal insufficiency given intermittent Decadron Rx during chemotherapy Acute on chronic anemia Multifactorial : GI bleed, FOBT done at the ER was positive. Tagrisso/chemotherapy Rx hx PVD status post stent moderate MR (TTE 2021) atrial septal aneurysm as per records DM2 on oral medications, well-controlled as of recent hemoglobin A1c of 5.02 July 2023 ongoing tobacco abuse ICU Continue Levophed CS, Zosyn, vancomycin Monitor creatinine response to IVF, hold ARB med Careful correction of sodium, hyponatremia workup, may benefit from Nephrology consultation Hold neuropsychotropic medications for now given confusion Supplemental O2, wean off BiPAP, nebs RTC, prednisone course for COPD exacerbation Hold multiple BP medications for now Decadron 1 dose for possible adrenal insufficiency given hypotension despite Levophed Rx TTE Re: Hypotension Follow H&H after PRBC transfusion at the ER, transfusion goal of at least 8 given history PVD IV PPI for presumptive UGI bleed causing significant anemia, hemoglobin drop from baseline Hold home aspirin for now GI consult re: GI bleed N.p.o. in anticipation of endoscopic procedure ISS BG goal 1 40-1 10 DVT prophylaxis. SCDs re: GI bleed Full code as per patient . Patient requesting updates providers. Mr. Ryne Bustillos, contact #[phone]. Total critical care time was 45 minutes. Text document was generated using Riiid voice recognition software. It may contain grammatical or spelling errors. Kindly contact undersigned for clarification of any documentation item in question. History of Present Illness Chief Complaint: Altered mental status, not eating Primary Care Provider: Vidal Barba History obtained from patient, family, and records. Limited history from patient secondary to disorientation. 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 Patient not well over the last few weeks as per . Not eating well. Patient increasingly weak. 3 days ago, patient fell at home from being dizzy. Sleeping all day and not urinating much. Patient admits to junky cough symptoms with some SOB. Not sure about aspiration. Patient complaining of some abdominal discomfort, denies black/bloody stools. Patient brought to the ER for evaluation. SBP 70s upon arrival at the ER. Lowest O2 sats of 80s documented at the ER. Vancomycin, Zosyn, fluid boluses, 2 units PRBC administered at the ER BiPAP and Levophed later initiated at the ER. 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 Allergies Allergy/AdvReac Type Severity Reaction Status Date / Time NSAIDS (Non-Steroidal AdvReac Intermediate Hives Verified 12/16/23 07:27 Anti-Inflamma Home Medications Medication Instructions Recorded Confirmed Type amlodipine 5 mg tablet 2.5 mg PO QAM 12/04/23 02/10/24 History budesonide 160 mcg-glycopyr 9 2 inh inhalation QPM 12/04/23 02/10/24 History mcg-formot 4.8 mcg/actuation HFA inhaler (Breztri Aerosphere) bupropion HCl 150 mg 24 hr tablet, 150 mg PO QAM 12/04/23 02/10/24 History extended release dapagliflozin propanediol 5 mg 5 mg PO QAM 12/04/23 02/10/24 History tablet (Farxiga) dexamethasone 4 mg tablet See Rx Instructions .Route .COMPLEX 12/04/23 02/10/24 History lansoprazole 15 mg capsule,delayed 15 mg PO QAM 12/04/23 02/10/24 History release losartan 100 mg tablet 100 mg PO QAM 12/04/23 02/10/24 History osimertinib 40 mg tablet (Tagrisso) 40 mg PO QAM 12/04/23 02/10/24 History rosuvastatin 10 mg tablet 10 mg PO QAM 12/04/23 02/10/24 History venlafaxine 150 mg 150 mg PO QAM 12/04/23 02/10/24 History capsule,extended release 24 hr (Effexor XR) acetaminophen 500 mg tablet 500 mg PO Q6H PRN Pain 02/10/24 02/10/24 History albuterol sulfate 2.5 mg/3 mL 2.5 mg inhalation Q4H PRN Wheezing 02/10/24 02/10/24 History (0.083 %) solution for nebulization albuterol sulfate 90 mcg/actuation 2 puff inhalation 6XD PRN Wheezing 02/10/24 02/10/24 History aerosol inhaler aspirin 81 mg tablet,delayed 81 mg PO DAILY 02/10/24 02/10/24 History release lidocaine-prilocaine 2.5 %-2.5 % 1 applic topical UD 02/10/24 02/10/24 History topical cream melatonin 5 mg tablet 5 mg PO HS 02/10/24 02/10/24 History omeprazole 20 mg capsule,delayed 20 mg PO QAM 02/10/24 02/10/24 History release ondansetron HCl 8 mg tablet 8 mg PO Q8H PRN Nausea And Vomiting 02/10/24 02/10/24 History prochlorperazine maleate 10 mg 10 mg PO Q6H PRN Nausea 02/10/24 02/10/24 History tablet propranolol 60 mg capsule,24 60 mg PO QAM 02/10/24 02/10/24 History hr,extended release trazodone 100 mg tablet 100 mg PO QAM 02/10/24 02/10/24 History Past Med/Surg History Problem List (Updated 02/11/24 @ 07:00 by Giorgio Monroy MD) Hypomagnesemia (Acute) Acute on chronic renal insufficiency (Acute) Encephalopathy [place] (acute kidney injury) Respiratory failure, acute and chronic (Acute) Elevated troponin (Acute) Lung cancer (Acute) Pneumonia (Acute) Anemia (Acute) Septic shock (Acute) Medical History Hyponatremia AAA (abdominal aortic aneurysm) per 09/10/23 imagin.7mm CKD (chronic kidney disease) stage 4, GFR 15-29 ml/min Carotid artery disease s/p R CEA Peripheral vascular disease Diverticular disease No hospitalizations - unsure when dx Acid reflux Diabetes mellitus, type 2 Anxiety Migraine HTN (hypertension) Irregular heart beat Follows Dr Hannah Springer; 'frequent PVCs' per chart review COPD (chronic obstructive pulmonary disease) 55 pack year smoking hx Lung cancer Per Oncology note, "Right lung mass, FNA c/w non small cell lung cancer favor adenocarcinoma. 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" Surgical History H/O vascular surgery L leg stent x 2 Hx of hysterectomy History of lung biopsy History of right shoulder replacement History of carotid endarterectomy R CEA History of bilateral hip replacements History of total left knee replacement Hx of colonoscopy Hx of cholecystectomy Hx of cataract surgery Bilateral Social History Smoking Status: Never smoker Tobacco Type: Cigarettes Cigarettes Per Day: 1/2 pack; Second Hand Exposure: No; Do You Dip or Chew Tobacco: No; Hx Alcohol Use: No Hx Substance Use: No Preferred Language: [place] Communication Ability: Effective 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: No Beliefs That Will Affect Care: None Current Living Situation: Spouse Feels Safe at Home: Yes Assistive Devices: Walker Review of Systems Review of Systems: Could not be reliably obtained secondary to disorientation Physical Exam Physical Exam: GENERAL: Disoriented, uncomfortable, restless, ill-appearing, no respiratory distress SKIN: Pallor, warm HEENT: Sparse hair, pale palpebral conjunctivae, no ptosis, dry buccal mucosa, BiPAP in place NECK : Supple, no tenderness CHEST : Decreased breath sounds, diffuse expiratory wheezes, no tenderness HEART : RRR, systolic murmur ABDOMEN: Some distention, nontender RECTAL : Intact sphincter, dark brown stool (FOBT positive) EXTREMITIES : No LE swelling/tenderness, no other conspicuous deformities noted NEUROLOGIC : Disoriented, no facial asymmetry, gait and stance not assessed Results & Data Results & Data Vital Signs (Past 12 Hours) Vital Signs Temp Pulse Pulse Resp BP BP Pulse Ox 02/10/24 21:19 96 H 02/10/24 21:18 95 H 22 100 02/10/24 21:16 108/56 L 02/10/24 21:12 96 H 20 94 02/10/24 21:10 112/56 L 02/10/24 21:10 112/56 L 02/10/24 21:09 93 H 25 H 02/10/24 21:07 101/70 02/10/24 21:03 93 H 25 H 97 02/10/24 21:00 02/10/24 21:00 115/77 02/10/24 21:00 91 H 20 99 02/10/24 20:56 104/54 L 02/10/24 20:56 104/54 L 02/10/24 20:52 35.8 C L 91 H 18 104/52 L 100 02/10/24 20:51 86 24 98 02/10/24 20:50 92/51 L 02/10/24 20:49 85/36 L 02/10/24 20:45 67/43 L 02/10/24 20:45 83 21 92 02/10/24 20:39 82 20 92 02/10/24 20:39 88/43 L 02/10/24 20:37 72/47 L 02/10/24 20:31 100 02/10/24 20:27 84/43 L 02/10/24 20:27 75 18 97 02/10/24 20:22 121/89 02/10/24 20:22 35.6 C L 75 16 84/43 L 100 02/10/24 20:21 77 20 99 02/10/24 20:15 02/10/24 20:15 76/53 L 02/10/24 20:12 78 21 02/10/24 20:07 36.8 C 79 22 69/44 L 96 02/10/24 20:06 78 17 100 02/10/24 19:50 35.8 C L 81 27 H 90/46 L 92 02/10/24 19:45 02/10/24 19:45 76 26 H 02/10/24 18:00 80 19 99/49 L 92 02/10/24 17:45 80 18 80/60 L 95 02/10/24 17:44 81 22 76/34 L 93 02/10/24 17:32 80 02/10/24 17:29 02/10/24 17:27 80 15 92 02/10/24 16:16 36.5 C 132 H 20 76/43 L 98 O2 Del Method O2 Flow Rate FiO2 02/10/24 21:19 02/10/24 21:18 BiPAP 40 02/10/24 21:16 02/10/24 21:12 BiPAP 40 02/10/24 21:10 02/10/24 21:10 02/10/24 21:09 02/10/24 21:07 02/10/24 21:03 BiPAP 40 02/10/24 21:00 BiPAP 02/10/24 21:00 02/10/24 21:00 BiPAP 40 02/10/24 20:56 02/10/24 20:56 02/10/24 20:52 02/10/24 20:51 BiPAP 40 02/10/24 20:50 02/10/24 20:49 02/10/24 20:45 02/10/24 20:45 02/10/24 20:39 02/10/24 20:39 02/10/24 20:37 02/10/24 20:31 40 02/10/24 20:27 02/10/24 20:27 BiPAP 40 02/10/24 20:22 02/10/24 20:22 02/10/24 20:21 BiPAP 40 02/10/24 20:15 BiPAP 02/10/24 20:15 02/10/24 20:12 02/10/24 20:07 02/10/24 20:06 BiPAP 40 02/10/24 19:50 100 02/10/24 19:45 BiPAP 02/10/24 19:45 100 02/10/24 18:00 Nasal Cannula 02/10/24 17:45 Nasal Cannula 02/10/24 17:44 Room Air 02/10/24 17:32 02/10/24 17:29 Nasal Cannula 2 02/10/24 17:27 Nasal Cannula 2 02/10/24 16:16 Room Air Laboratory Results Laboratory Results WBC 14.06 K/ul (4.8-10.8) H 02/10/24 16:44 RBC 2.38 M/uL (4.20-5.40) L 02/10/24 16:44 Hgb 6.9 g/dl (12.0-16.0) L* 02/10/24 16:44 POC Hgb 6.1 g/dl (12.0-16.0) L* 02/10/24 20:04 Hct 20.4 % (37.0-47.0) L* 02/10/24 16:44 POC Hct 18 % (37-47) L* 02/10/24 20:04 MCV 85.7 fL (80.0-100.0) 02/10/24 16:44 MCH 29.0 pg (25.0-34.0) 02/10/24 16:44 MCHC 33.8 g/dL (32.0-36.0) 02/10/24 16:44 RDW Std Deviation 59.7 fL (36.4-46.3) H 02/10/24 16:44 RDW Coeff of Lara 19.0 % (11.5-14.5) H 02/10/24 16:44 Plt Count 271 K/uL (130-400) 02/10/24 16:44 MPV 9.6 fL (9.4-12.4) 02/10/24 16:44 Immature Gran % (Auto) 4.6 % 02/10/24 16:44 Neut % (Auto) 82.2 % 02/10/24 16:44 Lymph % (Auto) 8.6 % 02/10/24 16:44 [place] % (Auto) 3.8 % 02/10/24 16:44 Eos % (Auto) 0.5 % 02/10/24 16:44 Baso % (Auto) 0.3 % 02/10/24 16:44 Reticulocyte % (Auto) 1.57 % (0.50-2.00) 02/10/24 16:44 Neut # (Auto) 11.57 K/uL (1.40-6.50) H 02/10/24 16:44 Lymph # (Auto) 1.21 K/uL (1.20-3.40) 02/10/24 16:44 [place] # (Auto) 0.53 K/uL (0.11-0.59) 02/10/24 16:44 Eos # (Auto) 0.07 K/uL (0.00-0.50) 02/10/24 16:44 Baso # (Auto) 0.04 K/uL (0.00-0.20) 02/10/24 16:44 Reticulocyte # 0.040 10^6/uL (0.020-0.100) 02/10/24 16:44 Immature Gran # (Auto) 0.64 K/uL (0.01-0.20) H 02/10/24 16:44 RBC Morphology Unremarkable 02/10/24 16:44 PT 10.9 Seconds (9.0-12.0) 02/10/24 16:44 INR 1.0 (0.9-1.1) 02/10/24 16:44 APTT 28 Seconds (21-31) 02/10/24 16:44 PTT Ratio 1.0 02/10/24 16:44 Specimen Type Arterial 02/10/24 20:04 POC pH 7.28 (7.35-7.45) L 02/10/24 20:04 POC pCO2 39 mmHg (35-46) 02/10/24 20:04 POC pO2 399 mmHg (80-95) H 02/10/24 20:04 POC HCO3 18 mitchell/L (19-24) L 02/10/24 20:04 POC Total CO2 19 mmol/L (24-31) L 02/10/24 20:04 POC Base Excess -9.0 mitchell/L (-9-1.8) 02/10/24 20:04 POC ABG O2 Sat 100.0 % (90-95) H 02/10/24 20:04 VBG pH 7.34 (7.36-7.41) L 02/10/24 16:44 VBG pCO2 39 mmHg (38-50) 02/10/24 16:44 VBG pO2 21 mmHg 02/10/24 16:44 VBG HCO3 21 mmol/L 02/10/24 16:44 VBG O2 Saturation < 60.0 % 02/10/24 16:44 VBG Base Excess -4.4 mEq/L 02/10/24 16:44 POC Sodium 121 mmol/L (135-144) L 02/10/24 20:04 Sodium 122 mmol/L (136-145) L 02/10/24 16:44 POC Potassium 4.0 mmol/L (3.3-5.0) 02/10/24 20:04 Potassium 3.8 mmol/L (3.5-5.1) 02/10/24 16:44 Chloride 89 mmol/L (98-107) L 02/10/24 16:44 Carbon Dioxide 22 mmol/L (21-32) 02/10/24 16:44 Anion Gap 11 (3-11) 02/10/24 16:44 BUN 44 mg/dl (6-23) H 02/10/24 16:44 Creatinine 2.78 mg/dl (0.6-1.2) H 02/10/24 16:44 Est Cr Clr Drug Dosing Not Reportable 02/10/24 16:44 eGFR 17.44 02/10/24 16:44 BUN/Creatinine Ratio 15.8 (10-20) 02/10/24 16:44 Glucose 83 mg/dl (70-99(Fasting)) 02/10/24 16:44 Osmolality 261 mOsm/kg (280-300) L 02/10/24 17:17 Lactate 1.3 mmol/L (0.4-2.0) 02/10/24 16:44 Calcium 8.2 mg/dl (8.6-10.3) L 02/10/24 16:44 Magnesium 1.6 mg/dl (1.7-2.4) L 02/10/24 16:44 Iron 45 mcg/dl (35-150) 02/10/24 16:44 Iron Cancelled 02/10/24 16:44 Unsaturated IBC 190 mcg/dl (155-355) 02/10/24 16:44 Unsaturated IBC Cancelled 02/10/24 16:44 Transferrin 178 mg/dl (200-360) L 02/10/24 16:44 Transferrin Cancelled 02/10/24 16:44 Ferritin 1527.0 ng/ml (8-388) H 02/10/24 16:44 Ferritin Cancelled 02/10/24 16:44 Total Bilirubin 0.4 mg/dl (0.2-1.0) 02/10/24 16:44 AST 24 U/L (13-39) 02/10/24 16:44 ALT 14 U/L (7-52) 02/10/24 16:44 Alkaline Phosphatase 90 U/L (34-104) 02/10/24 16:44 Total Creatine Kinase 223 U/L (26-192) H 02/10/24 20:38 Troponin I High Sens 2901.9 pg/ml (0-14) H* D 02/10/24 20:38 B-Natriuretic Peptide 1106 pg/ml (0-100) H 02/10/24 20:31 Total Protein 6.4 gm/dl (6.0-8.3) 02/10/24 16:44 Albumin 3.2 gm/dl (3.4-5.0) L 02/10/24 16:44 Globulin 3.2 gm/dl (2.5-4.0) 02/10/24 16:44 Albumin/Globulin Ratio 1.0 (0.9-2) 02/10/24 16:44 Vitamin B12 657 pg/ml (180-914) 02/10/24 16:44 Folate 14.60 ng/ml (>5.38) 02/10/24 16:44 Procalcitonin 0.52 ng/ml (0-0.5) H 02/10/24 16:44 TSH 3.822 uIu/ml (0.300-4.500) 02/10/24 16:44 Urine Color Dark Yellow 02/10/24 20:39 Urine Appearance Clear (Clear) 02/10/24 20:39 Urine pH 5.0 (4.5-7.5) 02/10/24 20:39 Ur Specific [place] 1.021 (1.000-1.030) 02/10/24 20:39 Urine Protein Trace (Negative) H 02/10/24 20:39 Urine Glucose (UA) Negative (Negative) 02/10/24 20:39 Urine Ketones Trace (Negative) H 02/10/24 20:39 Urine Blood Negative (Negative) 02/10/24 20:39 Urine Nitrite Negative (Negative) 02/10/24 20:39 Urine Bilirubin 1+ (Negative) H 02/10/24 20:39 Urine Urobilinogen Negative (Negative) 02/10/24 20:39 Ur Leukocyte Esterase Trace (Negative) H 02/10/24 20:39 Urine WBC (Auto) 0-5 /hpf (0-5) 02/10/24 20:39 Urine RBC (Auto) 0-2 /hpf (0-2) 02/10/24 20:39 U Hyaline Cast (Auto) 6-10 /lpf (0-2) H 02/10/24 20:39 U Epithel Cells (Auto) 0-2 /hpf (0-2) 02/10/24 20:39 Urine Bacteria (Auto) None Seen (None Seen) 02/10/24 20:39 Hyaline Casts Present /lpf (None Presnt) A 02/10/24 20:39 Urine Osmolality 375 mOsm/kg (500-800) L 02/10/24 20:39 Ur Random Sodium 12 mmol/L 02/10/24 20:39 Nasal Screen MRSA (PCR) Negative (Negative) 02/10/24 18:34 Adenovirus (PCR) Not Detected (NotDetected) 02/10/24 18:34 B. pertussis DNA (PCR) Not Detected (NotDetected) 02/10/24 18:34 B.parapertussis DNA PCR Not Detected (NotDetected) 02/10/24 18:34 C. pneumoniae DNA (PCR) Not Detected (NotDetected) 02/10/24 18:34 Coronavirus OC43 (PCR) Not Detected (NotDetected) 02/10/24 18:34 Coronavirus HKU1 (PCR) Not Detected (NotDetected) 02/10/24 18:34 Coronavirus 229E (PCR) Not Detected (NotDetected) 02/10/24 18:34 SARS-CoV-2 (PCR) Not Detected (NotDetected) 02/10/24 18:34 Coronavirus NL63 (PCR) Not Detected (NotDetected) 02/10/24 18:34 Human Metapneumovir PCR Not Detected (NotDetected) 02/10/24 18:34 Influenza Type A (PCR) Not Detected (NotDetected) 02/10/24 18:34 Influenza Type B (PCR) Not Detected (NotDetected) 02/10/24 18:34 M. pneumoniae (PCR) Not Detected (NotDetected) 02/10/24 18:34 Parainfluenza 1 (PCR) Not Detected (NotDetected) 02/10/24 18:34 Parainfluenza 2 (PCR) Not Detected (NotDetected) 02/10/24 18:34 Parainfluenza 3 (PCR) Not Detected (NotDetected) 02/10/24 18:34 Parainfluenza 4 (PCR) Not Detected (NotDetected) 02/10/24 18:34 RSV (PCR) Not Detected (NotDetected) 02/10/24 18:34 Entero/Rhino (PCR) Not Detected (NotDetected) 02/10/24 18:34 Blood Type O Positive 02/10/24 17:27 Blood Type Recheck O Positive 02/10/24 18:20 Antibody Screen NEGATIVE 02/10/24 17:27 Crossmatch See Detail 02/10/24 17:27 Impressions Chest X-Ray 02/10/24 16:15 EXAM: Radiograph of the Chest 1 View INDICATION: Fall. Weakness. TECHNIQUE: Frontal view of the chest. COMPARISON: 12/16/2023 FINDINGS: Lungs and pleural spaces: Decreased size and asymmetric wall thickening of a cavitary nodule in the right mid to lower lung measuring 2.7 x 3.3 cm. New generalized airway thickening and patchy infiltrates in the left lung most confluent in the base. Stable scarring in the right upper lobe. Trace left pleural effusion probable. No pneumothorax. Patchy consolidation in the left lung base. Possible very small left pleural effusion. Heart: Shape and configuration within normal limits allowing for technique. Mediastinum: Normal contour. Bones/joints: No fracture, erosion or dislocation. Bilateral shoulder arthroplasties well-seated. Soft tissues: No abnormality noted. No radiopaque foreign body noted. Tubes, lines and devices: Right internal jugular port catheter tip terminates in the proximal SVC. Upper abdomen: No abnormality noted. IMPRESSION: Left bronchitis and multifocal pneumonia. Trace left pleural effusion. Consider aspiration. ACT 112: Negative or not required by law. Electronically signed by Anny Pelayo 02-10-2024 6:00 PM Pelvis X-Ray 02/10/24 16:21 EXAM: Radiographs of the Pelvis 1 View INDICATION: Fall. TECHNIQUE: Frontal view of the pelvis. COMPARISON: No relevant prior studies available. FINDINGS: Limitations: None. Bones/joints: Visualized bilateral hip prostheses well-seated. No dislocation or fracture noted in 1 year. Soft tissues: No abnormality noted. No radiopaque foreign body noted. Vasculature: Atherosclerosis of the abdominal aorta noted with a stent projecting to the left of the L4 vertebra possibly in the left renal artery. IMPRESSION: No pelvic fracture noted. ACT 112: Negative or not required by law. Electronically signed by Anny Pelayo 02-10-2024 6:10 PM Ankle X-Ray 02/10/24 17:40 EXAM: Radiographs of the Right Ankle 3 Views INDICATION: Fall. TECHNIQUE: Frontal, lateral and oblique views of the right ankle. COMPARISON: No relevant prior studies available. FINDINGS: Limitations: None. Bones/joints: There is mild spurring along the medial malleolus presumably related to previous trauma. Well-corticated ossicle seen on the lateral view projecting at the talar neck. There is a defined lucency at the proximal tip of the fifth metatarsal tubercle with small adjacent well-corticated ossification. Ankle mortise intact. Soft tissues: Mild periarticular soft tissue swelling. No soft tissue gas collection or radiopaque foreign body. IMPRESSION: Age-indeterminate fracture proximal tip of the fifth metatarsal tubercle. ACT 112: Negative or not required by law. Electronically signed by Anny Pelayo 02-10-2024 6:13 PM Abdomen/Pelvis CT 02/10/24 17:50 Exam(s): CT ABDOMEN + PELVIS With Contrast IV Amt: 117 cc opti 320 EXAM: CT Abdomen and Pelvis With Intravenous Contrast CLINICAL HISTORY: Reason for exam: lung CA, fall, hip pain, anemia. TECHNIQUE: Axial computed tomography images of the abdomen and pelvis with intravenous contrast. CTDI is 22.43 mGy and DLP is 429.22 mGy-cm. Automated exposure control was utilized for the study. A dose lowering technique was utilized adhering to the principles of ALARA. CONTRAST: Patient received 117 cc opti 320 of IV contrast COMPARISON: No relevant prior studies available. FINDINGS: ABDOMEN: Liver: Unremarkable. Gallbladder and bile ducts: Cholecystectomy. Pancreas: Unremarkable. Spleen: Unremarkable. Adrenals: Unremarkable. Kidneys and ureters: Poorly enhancing left kidney small in size. Right kidney unremarkable. Stomach and bowel: Unremarkable. PELVIS: Appendix: No findings to suggest acute appendicitis. Bladder: Unremarkable. Reproductive: Unremarkable as visualized. ABDOMEN and PELVIS: Intraperitoneal space: Unremarkable. No free air. No significant fluid collection. Bones/joints: No acute fracture. Heterogeneous appearance of the marrow within the pelvis. Bilateral hip arthroplasties. Degenerative changes in the lumbar spine. L5 pars defects. Severe degenerative changes at L4-5 and L5-S1. Soft tissues: Unremarkable. Vasculature: Advanced atherosclerotic calcifications. AAA measuring 4. 1 cm. 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 Lymph nodes: Unremarkable. IMPRESSION: 1. No acute fracture. Heterogeneous appearance of the marrow within the pelvis. Cannot exclude underlying metastatic disease. Consider MRI. 2. Advanced atherosclerotic calcifications. AAA measuring 4.1 cm. 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 Electronically signed by: Felix Russell MD 02/10/24 20:[address] 02/10/24 17:50 Exam(s): CT C SPINE EXAM: CT Cervical Spine Without Intravenous Contrast CLINICAL HISTORY: Reason for exam: lung CA, fall, hip pain. TECHNIQUE: Axial computed tomography images of the cervical spine without intravenous contrast. CTDI is 19.93 mGy and DLP is 693.39 mGy-cm. Automated exposure control was utilized for the study. A dose lowering technique was utilized adhering to the principles of ALARA. COMPARISON: No relevant prior studies available. FINDINGS: Vertebrae: No fracture or malalignment. Severe degenerative disc disease at C3-4, C4-5, C5-6, and C6-7. No severe spinal canal stenosis. Multilevel foraminal stenosis of variable degrees. Soft tissues: Interstitial thickening and nodularity at the left lung apex. IMPRESSION: 1. No fracture within the cervical spine. 2. Interstitial thickening and nodularity at the left lung apex. Electronically signed by: Felix Russell MD 02/10/24 21:19 PM Chest CTA 02/10/24 17:50 Exam(s): CTA CHEST IV Amt: 117 cc opti 320 EXAM: CT Angiography Chest With Intravenous Contrast CLINICAL HISTORY: Reason for exam: lung CA, Trop 4700, r/o pe. TECHNIQUE: Axial computed tomographic angiography images of the chest with intravenous contrast. CTDI is 34.77 mGy and DLP is 624.41 mGy-cm. Automated exposure control was utilized for the study. A dose lowering technique was utilized adhering to the principles of ALARA. MIP reconstructed images were created and reviewed. COMPARISON: No relevant prior studies available. FINDINGS: Pulmonary arteries: No pulmonary embolism. Aorta: No acute findings. Normal caliber. No dissection. Lungs: Extensive consolidation in the left lower lobe. More nodular appearing lesions in the left upper lobe some of which demonstrate early cavitation. Cavitating lesion in the right lower lobe with wall thickening measuring up to 4.3 cm. Heterogeneous opacity in the right upper lobe with what appears to be a peripheral rim measuring 4.3 cm (series 10 image 88). Linear nodularity in the posterior right upper lobe measuring 3.7 x 1.5 cm. Pleural space: Unremarkable. Heart: Heart size mildly prominent. Severe CAD. Mediastinum: Moderate hiatal hernia. Bones/joints: No acute fracture. Soft tissues: Unremarkable. Lymph nodes: Unremarkable. IMPRESSION: 1. No pulmonary embolism. 2. Extensive consolidation in the left lower lobe. 3. More nodular appearing lesions in the left upper lobe some of which demonstrate early cavitation. 4. Cavitating lesion in the right lower lobe with wall thickening measuring up to 4.3 cm. 5. Heterogeneous opacity in the right upper lobe with what appears to be a peripheral rim measuring 4.3 cm (series 10 image 88). 6. Linear nodularity in the posterior right upper lobe measuring 3.7 x 1. 5 cm. 7. Moderate hiatal hernia. 8. Heart size mildly prominent. Severe CAD. Electronically signed by: Felix Russell MD 02/10/24 19:[address] 02/10/24 17:50 CR Exam(s): CT HEAD Without Contrast EXAM: CT Head Without Intravenous Contrast CLINICAL HISTORY: Reason for exam: lung CA, fall, pain. TECHNIQUE: Axial computed tomography images of the head/brain without intravenous contrast. CTDI is 34.77 mGy and DLP is 624.41 mGy-cm. Automated exposure control was utilized for the study. A dose lowering technique was utilized adhering to the principles of ALARA. COMPARISON: No relevant prior studies available. FINDINGS: Artifacts: Images are degraded by motion artifact. Brain: No hemorrhage, extra-axial fluid collection, mass effect, or edema. Age indeterminate infarct within the right parietal cortex (series 5 image 11). Ventricles: Unremarkable. Bones/joints: Unremarkable. No fracture. Soft tissues: Unremarkable. Sinuses: No acute sinusitis. Mastoid air cells: Unremarkable as visualized. IMPRESSION: 1. No intracranial hemorrhage or traumatic injury identified. 2. 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 Correlate clinically. Consider MRI if there is concern for acute ischemia. Communications: Verify Receipt Electronically signed by: Felix Russell MD 02/10/24 20:58 PM Diagnostic Findings EKG as per my interpretation :Rate 80, NSR, normal axis, septal infarct, T wave abnormalities inferior leads
[2024-02-10] MEDS ORDERED: ACETAMINOPHEN 325 MG TAB PO PRN (21:55)
[2024-02-10] MEDS ORDERED: PROMETHAZINE 6.25 MG/50.25 ML BAG IV PRN (21:55)
[2024-02-10] MEDS ORDERED: MELATONIN 3 MG TAB PO PRN (21:59)
[2024-02-10] MEDS: dexAMETHasone 4 MG in SYRINGE 0 ML IV ONE (22:18)
[2024-02-10] MEDS: MAGNESIUM SULFATE / D5W 1 GM/100 ML BAG IV ONE (22:19)
[2024-02-10] MEDS ORDERED: GLUCAGON FOR INJ 1 MG VIAL SQ PRN (22:54)
[2024-02-10] MEDS ORDERED: GLUCOSE 10 TAB/TUBE PO PRN (22:54)
[2024-02-10] MEDS ORDERED: DEXTROSE 50% 50 ML SYRINGE IV PRN (22:54)
[2024-02-10] MEDS ORDERED: CARBOHYDRATES FOR HYPOGLYCEMIA PO PRN (22:54)
[2024-02-10] MEDS ORDERED: GLUCOSE 40% GEL 15 GM TUBE PO PRN (22:54)
[2024-02-10] MEDS: PANTOprazole 80 MG in DEXTROSE 5% 100 ML IV STA (23:04)
[2024-02-10] MEDS: OLANZapine 10 MG/2.1 ML SDV IM STA (23:06)
[2024-02-10] MEDS: PANTOprazole 40 MG in DEXTROSE 5% MINI-B 100 ML IV SCH (23:23)
[2024-02-10] MEDS: STAT IV Infusion **Titration per Protocol STA (23:23)
--- NOTE | 2024-02-10 23:32 | Critical Care Consultation ---
Date of Consultation February 10, 2024 Assessment & Plan (1) Septic shock: Reason Critically Ill: 73-year-old female with past medical history significant for COPD, lung cancer (undergoing treatment with chemotherapy), anxiety and depression, peripheral vascular disease, DM type II, HLD, HTN presents to the ICU with septic shock likely from pulmonary source, currently requiring vasopressor support with Levophed drip. Neuro - [facility] ICU: Negative Cardiac - Shocklikely septic in etiology, given underlying pneumonia and patient Undergoing chemotherapy/immunocompromise - Patient with elevated troponin, downtrending. No chest pain and no ST elevation on EKG. Suspect demand ischemia - Previous TTE from 2021 with normal EF and no significant valvular disease. Will repeat study - Patient does take daily prednisone. Random cortisol currently pending. Did receive dexamethasone in the emergency department - See ID for treatment of underlying sepsis - CTA negative for PE - Titrate Levophed to maintain MAP greater than 65 - Continue with fluid resuscitation - Hold antihypertensives - Continuous monitoring telemetry Respiratory - Acute on chronic hypoxic and hypercapnic respiratory failurepatient with underlying COPD and squamous cell carcinoma of the lung. Per exam she appears to be wheezing and tachypneic, suspect mild COPD exacerbation. CTA negative for PE but did show underlying consolidations consistent with pneumonia in the left lower lobe as well which is likely contributing. - Currently maintaining oxygen saturations on nasal cannula - See ID for treatment of underlying pneumonia - Continue prednisone - Scheduled nebs, DuoNeb as needed - Repeat blood gas pending, will follow-up - Continuous monitoring pulse ox. Wean oxygen as tolerated GI - GI bleed?Patient with positive Hemoccult, no significant melena per report. She was started on PPI and given 1 unit RBCs - GI consulted. Will follow up recommendations - Keep n.p.o. for now RENAL/LYTES - Hyponatremia Patient with hypoosmolar hyponatremia with sodium of 121 on admission. Received NSS bolus with 1.5 L, and repeat BMP currently pending - Goal sodium correction 6-8 mill equivalents per 24 hours - Trend sodium every 6 hours - Consult to nephrology pending [place] On CKDlikely prerenal in the setting of hypotension. Previous baseline creatinine around 1.5, currently at 2.5 - Continue with IV fluid resuscitation - Avoid nephrotoxins renally adjust medications - Maintain MAP greater than 65 to ensure renal perfusion - Consult to nephrology pending - Strict I's and O's ENDO - DM type IIcurrently euglycemic. Hemoglobin A1c pending. ICU hyperglycemic protocol HEME - Anemiaappears to be chronic with underlying cancer, unsure if this is related to bone metastasis or possible chemo transfusions with bone marrow suppression. Iron studies currently pending. Patient has received multiple transfusions in the past few months. Received 1 unit RBCs for hemoglobin 6.9. Repeat H&H currently pending, will trend and transfuse as indicated ID - Sepsislikely pulmonary source with left lower lobe consolidation noted on CTA chest, and immunocompromise patient receiving chemotherapy for lung cancer. - BioFire negative, nasal MRSA negative - Urinalysis unremarkable - Blood cultures And sputum culture pending - Continue Zosyn for now LINES/IV ACCESS - Peripheral IVs, right subclavian port accessed 02/09 DVT PROPHYLAXIS - SCDs, holding anticoagulation due to suspicion for GI bleed I have personally spent 50 minutes of critical care time in the direct management of this patient. This is a life/limb threatening event. This includes time spent evaluating patient, direct bedside care, chart review, placing orders, interpretation of diagnostic studies, discussion with consultants, patient, and family members, as well as other required patient management act ivities. This time is exclusive of all separately billable procedures, and teaching time and separate from and in addition to any other critical care service time. Thank you for allowing us to participate in the care of this patient. Please refer to my attending physician's documentation for any further recommendations. (2) Hyponatremia: (3) Peripheral vascular disease: (4) Diabetes mellitus, type 2: (5) HTN (hypertension): (6) COPD (chronic obstructive pulmonary disease): (7) Lung cancer: (8) Anxiety: (9) Respiratory failure, acute and chronic: (10) [place] (acute kidney injury): History of Present Illness Attending Physician: Lila Coates MD History of Present Illness Patient is a 73-year-old female with past medical history significant for anxiety and depression, HLD, tobacco abuse, COPD, HTN, PVD, DM type II, and diagnosis of squamous cell carcinoma of the lung in 2021 currently undergoing treatment with chemotherapy. Patient recently has required routine blood transfusions due to anemia which has interrupted chemo administration. She follows with [facility] oncology. She presents to the emergency department earlier today for evaluation with generalized weakness ongoing for the past week,. On arrival to the emergency department patient was noted to be tachycardic and hypotensive. She underwent CTA which was negative for PE but did show consolidation in the left lung and findings of cavitary lesions consistent with lung cancer. Patient was also found to be anemic with hemoglobin of 6.9 and received 1 unit RBCs. She was given 1.5 L crystalloid bolus as well, but remained hypotensive and was started on vasopressor support. She does have a port which was accessed for central venous access. Patient was started on broad- spectrum antibiotics. On arrival to the ICU the patient is alert and appears comfortable at rest. She is without acute distress. She does report feeling short of breath and she is noted to have audible wheeze. She also reports intermittent pain in her lower extremities which is chronic. She denies headache, dizziness, syncopal events, recent illness or fevers, cough, congestion, chest pain or palpitations, abdominal pain, nausea vomiting or diarrhea, swelling in hands or feet, changes in gait. She does report having a fall on Saturday but denies any trauma sustained. Patient to remain in ICU for further management at this time as she is critically ill requiring vasopressor support for underlying septic shock. Allergies Allergy/AdvReac Type Severity Reaction Status Date / Time NSAIDS (Non-Steroidal AdvReac Intermediate Hives Verified 12/16/23 07:27 Anti-Inflamma Home Medications Medication Instructions Recorded Confirmed Type amlodipine 5 mg tablet 2.5 mg PO QAM 12/04/23 02/10/24 History budesonide 160 mcg-glycopyr 9 2 inh inhalation QPM 12/04/23 02/10/24 History mcg-formot 4.8 mcg/actuation HFA inhaler (Breztri Aerosphere) bupropion HCl 150 mg 24 hr tablet, 150 mg PO QAM 12/04/23 02/10/24 History extended release dapagliflozin propanediol 5 mg 5 mg PO QAM 12/04/23 02/10/24 History tablet (Farxiga) dexamethasone 4 mg tablet See Rx Instructions .Route .COMPLEX 12/04/23 02/10/24 History lansoprazole 15 mg capsule,delayed 15 mg PO QAM 12/04/23 02/10/24 History release losartan 100 mg tablet 100 mg PO QAM 12/04/23 02/10/24 History osimertinib 40 mg tablet (Tagrisso) 40 mg PO QAM 12/04/23 02/10/24 History rosuvastatin 10 mg tablet 10 mg PO QAM 12/04/23 02/10/24 History venlafaxine 150 mg 150 mg PO QAM 12/04/23 02/10/24 History capsule,extended release 24 hr (Effexor XR) acetaminophen 500 mg tablet 500 mg PO Q6H PRN Pain 02/10/24 02/10/24 History albuterol sulfate 2.5 mg/3 mL 2.5 mg inhalation Q4H PRN Wheezing 02/10/24 02/10/24 History (0.083 %) solution for nebulization albuterol sulfate 90 mcg/actuation 2 puff inhalation 6XD PRN Wheezing 02/10/24 02/10/24 History aerosol inhaler aspirin 81 mg tablet,delayed 81 mg PO DAILY 02/10/24 02/10/24 History release lidocaine-prilocaine 2.5 %-2.5 % 1 applic topical UD 02/10/24 02/10/24 History topical cream melatonin 5 mg tablet 5 mg PO HS 02/10/24 02/10/24 History omeprazole 20 mg capsule,delayed 20 mg PO QAM 02/10/24 02/10/24 History release ondansetron HCl 8 mg tablet 8 mg PO Q8H PRN Nausea And Vomiting 02/10/24 02/10/24 History prochlorperazine maleate 10 mg 10 mg PO Q6H PRN Nausea 02/10/24 02/10/24 History tablet propranolol 60 mg capsule,24 60 mg PO QAM 02/10/24 02/10/24 History hr,extended release trazodone 100 mg tablet 100 mg PO QAM 02/10/24 02/10/24 History Patient History Medical History Hyponatremia AAA (abdominal aortic aneurysm) per 09/10/23 imagin.7mm CKD (chronic kidney disease) stage 4, GFR 15-29 ml/min Carotid artery disease s/p R CEA Peripheral vascular disease Diverticular disease No hospitalizations - unsure when dx Acid reflux Diabetes mellitus, type 2 Anxiety Migraine HTN (hypertension) Irregular heart beat Follows Dr Hannah Springer; 'frequent PVCs' per chart review COPD (chronic obstructive pulmonary disease) 55 pack year smoking hx Lung cancer Per Oncology note, "Right lung mass, FNA c/w non small cell lung cancer favor adenocarcinoma. 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" Surgical History H/O vascular surgery L leg stent x 2 Hx of hysterectomy History of lung biopsy History of right shoulder replacement History of carotid endarterectomy R CEA History of bilateral hip replacements History of total left knee replacement Hx of colonoscopy Hx of cholecystectomy Hx of cataract surgery Bilateral Social History Smoking Status: Never smoker Tobacco Type: Cigarettes Cigarettes Per Day: 1/2 pack; Second Hand Exposure: No; Do You Dip or Chew Tobacco: No; Hx Alcohol Use: No Hx Substance Use: No Preferred Language: Chadian Communication Ability: Effective Strain Technician Required: No Beliefs That Will Affect Care: None Current Living Situation: Spouse Feels Safe at Home: Yes Assistive Devices: Walker Review of Systems Review of Systems: All systems reviewed & are unremarkable except as noted in HPI & below Physical Exam Constitutional: + frail appearing, cooperative and comfo rtable; no acute distress Eyes: PERRL, conjunctivae normal, anicteric sclerae ENMT: external ear and nose normal, oropharynx normal Neck: trachea midline, no thyromegaly Respiratory: Expiratory wheeze noted in all lung núñez bilaterally, symmetrical chest wall movement. Tachypneic without use of accessory muscles Cardiovascular: RRR, no murmur, no edema Heart Sounds: normal S1 and normal S2 Extremities: no edema Gastrointestinal (Abdomen): normal bowel sounds, soft, nontender, no hepatosplenomegaly Musculoskeletal: no cyanosis or clubbing, extremities motor strength 5/5 Skin: no rashes, warm and dry Neurologic: PERRL, EOMI, accommodation nl, no face palsy, no dysarthria Psychiatric: A+Ox3, euthymic affect Results & Data Results & Data Vital Signs (Past 12 Hours) Vital Signs Temp Pulse Pulse Resp BP BP Pulse Ox 02/10/24 23:11 36.1 C L 96 H 20 135/67 90 02/10/24 21:56 97/54 L 94 02/10/24 21:54 64/50 L 02/10/24 21:52 36.1 C L 96 H 20 98/80 L 94 02/10/24 21:48 95 H 24 02/10/24 21:30 106/51 L 02/10/24 21:30 96 H 28 H 100 02/10/24 21:25 83/57 L 02/10/24 21:19 96 H 02/10/24 21:18 95 H 22 100 02/10/24 21:16 108/56 L 02/10/24 21:12 96 H 20 94 02/10/24 21:10 112/56 L 02/10/24 21:10 112/56 L 02/10/24 21:09 93 H 25 H 02/10/24 21:07 101/70 02/10/24 21:03 93 H 25 H 97 02/10/24 21:00 02/10/24 21:00 115/77 02/10/24 21:00 91 H 20 99 02/10/24 20:56 104/54 L 02/10/24 20:56 104/54 L 02/10/24 20:52 35.8 C L 91 H 18 104/52 L 100 02/10/24 20:51 86 24 98 02/10/24 20:50 92/51 L 02/10/24 20:49 85/36 L 02/10/24 20:45 67/43 L 02/10/24 20:45 83 21 92 02/10/24 20:39 82 20 92 02/10/24 20:39 88/43 L 02/10/24 20:37 72/47 L 02/10/24 20:31 100 02/10/24 20:27 84/43 L 02/10/24 20:27 75 18 97 02/10/24 20:22 121/89 02/10/24 20:22 35.6 C L 75 16 84/43 L 100 02/10/24 20:21 77 20 99 02/10/24 20:15 02/10/24 20:15 76/53 L 02/10/24 20:12 78 21 02/10/24 20:07 36.8 C 79 22 69/44 L 96 02/10/24 20:06 78 17 100 02/10/24 19:50 35.8 C L 81 27 H 90/46 L 92 02/10/24 19:45 02/10/24 19:45 76 26 H 02/10/24 18:00 80 19 99/49 L 92 02/10/24 17:45 80 18 80/60 L 95 02/10/24 17:44 81 22 76/34 L 93 02/10/24 17:32 80 02/10/24 17:29 02/10/24 17:27 80 15 92 02/10/24 16:16 36.5 C 132 H 20 76/43 L 98 O2 Del Method O2 Flow Rate FiO2 02/10/24 23:11 6 02/10/24 21:56 Nasal Cannula 4 02/10/24 21:54 02/10/24 21:52 4 02/10/24 21:48 02/10/24 21:30 02/10/24 21:30 BiPAP 40 02/10/24 21:25 02/10/24 21:19 02/10/24 21:18 BiPAP 40 02/10/24 21:16 02/10/24 21:12 BiPAP 40 02/10/24 21:10 02/10/24 21:10 02/10/24 21:09 02/10/24 21:07 02/10/24 21:03 BiPAP 40 02/10/24 21:00 BiPAP 02/10/24 21:00 02/10/24 21:00 BiPAP 40 02/10/24 20:56 02/10/24 20:56 02/10/24 20:52 02/10/24 20:51 BiPAP 40 02/10/24 20:50 02/10/24 20:49 02/10/24 20:45 02/10/24 20:45 02/10/24 20:39 02/10/24 20:39 02/10/24 20:37 02/10/24 20:31 40 02/10/24 20:27 02/10/24 20:27 BiPAP 40 02/10/24 20:22 02/10/24 20:22 02/10/24 20:21 BiPAP 40 02/10/24 20:15 BiPAP 02/10/24 20:15 02/10/24 20:12 02/10/24 20:07 02/10/24 20:06 BiPAP 40 02/10/24 19:50 100 02/10/24 19:45 BiPAP 02/10/24 19:45 100 02/10/24 18:00 Nasal Cannula 02/10/24 17:45 Nasal Cannula 02/10/24 17:44 Room Air 02/10/24 17:32 02/10/24 17:29 Nasal Cannula 2 02/10/24 17:27 Nasal Cannula 2 02/10/24 16:16 Room Air Coding Level of Care Code 59128 CRITICAL CARE 1ST 30-74M Diagnoses Septic shock A41.9; R65.21 Hyponatremia E87.1 Peripheral vascular disease I73.9 Diabetes mellitus, type 2 E11.9 HTN (hypertension) I10 COPD (chronic obstructive pulmonary disease) J44.9 Lung cancer C34.90 Anxiety F41.9 Respiratory failure, acute and chronic J96.20 [place] (acute kidney injury) N17.9
[2024-02-10] MEDS: IPRATROPIUM BROMIDE NEB SOLN 0.02% 0.5MG/2.5ML VIAL INH SCH (23:40)
[2024-02-10] MEDS: LEVALBUTEROL 1.25 MG/3 ML NEB NEB SCH (23:40)
[2024-02-11] MEDS: SODIUM CHLORIDE 0.9% 500 ML IV ONE
[2024-02-11] MEDS: INSULIN ASPART PER UNIT CHARGE SC SCH (00:07)
[2024-02-11] MEDS: NSS + 20MEQ KCL 20 MEQ/1,000 ML BAG IV ONE (00:09)
[2024-02-11] MEDS: SODIUM CHLORIDE 0.9% 500 ML IV SCH (00:40)
[2024-02-11 01:10] LABS: Base Excess VBG -9.8 mEq/L; HCO3 VBG 19 mmol/L; Oxygen Saturation VBG < 60.0 %; PCO2 VBG 54 mmHg (38-50); PO2 VBG < 20 mmHg; pH VBG 7.16 (7.36-7.41)
[2024-02-11] MEDS: methylPREDNISolone 125 MG/2 ML VIAL IV SCH (01:12)
[2024-02-11 01:26] LABS: Hematocrit (blood only) 20.5 % (37.0-47.0); Hemoglobin 6.9 g/dl (12.0-16.0)
[2024-02-11] MEDS ORDERED: SODIUM CHLORIDE 0.9% 100 ML IV PRN (01:27)
[2024-02-11] MEDS ORDERED: SODIUM CHLORIDE 0.9% 50 ML IV PRN (01:27)
[2024-02-11 01:43] LABS: BUN Creatinine Ratio 16.1 (10-20); Calcium 7.1 mg/dl (8.6-10.3); Creatinine Clr Calc Pharmacy 15.5 ml/min; Potassium 3.9 mmol/L (3.5-5.1)
[2024-02-11] MEDS: traZODone HCL 100 MG TAB PO PRN (02:10)
[2024-02-11] MEDS: PIPERACILLIN/TAZOBACTAM 4.5 GM/100 ML BAG IV SCH (03:41)
[2024-02-11] MEDS: LORazepam 2 MG/1 ML VIAL ONE (03:56)
[2024-02-11] MEDS: LORazepam 2 MG/1 ML VIAL IV STA (03:56)
[2024-02-11] MEDS ORDERED: STAT IV Infusion **Titration per Protocol STA ×3 (04:11→11:33)
[2024-02-11] MEDS: SODIUM CHLORIDE 0.9% 1,000 ML IV SCH (04:24)
[2024-02-11 04:47] LABS: iSTAT Allen Test Pass; iSTAT Art Bld Gas pCO2 Correct 37 mmHg (35-46); iSTAT Art Bld Gas pH Corrected 7.255 (7.35-7.45); iSTAT Arterial Blood Gas HCO3 17 meg/L (19-24); iSTAT Arterial Blood Gas pCO2 39 mmHg (35-46); iSTAT Arterial Blood Gas pH 7.25 (7.35-7.45); iSTAT Arterial Blood Gas pO2 63 mmHg (80-95); iSTAT Arterial Blood Gas pO2 C 60; iSTAT Carbon Dioxide 18 mmol/L (24-31); iSTAT FiO2 40 %; iSTAT Hematocrit 24 % (37-47); iSTAT Hemoglobin 8.2 g/dl (12.0-16.0); iSTAT Potassium 4.2 mmol/L (3.3-5.0); iSTAT Sample Type Arterial; iSTAT Site L Radial; iSTAT Sodium 121 mmol/L (135-144); iSTAT SpO2 96
[2024-02-11] MEDS: dexMEDEtomidine 200 MCG/50 ML BAG IV SCH (04:47)
[2024-02-11 05:57] LABS: Hematocrit (blood only) 25.3 % (37.0-47.0); Hemoglobin 8.5 g/dl (12.0-16.0); Mean Corpuscular Hemoglobin 29.1 pg (25.0-34.0); Mean Corpuscular Hgb Conc 33.6 g/dL (32.0-36.0); Mean Corpuscular Volume 86.6 fL (80.0-100.0); Mean Platelet Volume 9.8 fL (9.4-12.4); Platelet Count 262 K/uL (130-400); RDW Coefficient of Variation 17.2 % (11.5-14.5); RDW Standard Deviation 55.8 fL (36.4-46.3); Red Blood Count 2.92 M/uL (4.20-5.40); White Blood Count 15.76 K/ul (4.8-10.8)
[2024-02-11 06:10] LABS: Albumin Level 3.1 gm/dl (3.4-5.0); BUN Creatinine Ratio 15.8 (10-20); Bilirubin Direct 0.3 mg/dl (0-0.2); Bilirubin,Total 0.7 mg/dl (0.2-1.0); Calcium 7.5 mg/dl (8.6-10.3); Magnesium 1.7 mg/dl (1.7-2.4); Phosphorus 4.5 mg/dl (2.5-4.9); Potassium 4.1 mmol/L (3.5-5.1); Total Protein 6.2 gm/dl (6.0-8.3)
[2024-02-11 06:33] LABS: Basophils # (auto) 0.02 K/uL (0.00-0.20); Basophils % (auto) 0.1 %; Echinocytes 1+; Eosinophils # (auto) 0.01 K/uL (0.00-0.50); Eosinophils % (auto) 0.1 %; Immature Granulocytes # (auto) 0.55 K/uL (0.01-0.20); Immature Granulocytes % (auto) 3.5 %; Lymphocytes # (auto) 0.57 K/uL (1.20-3.40); Lymphocytes % (auto) 3.6 %; Monocytes # (auto) 0.11 K/uL (0.11-0.59); Monocytes % (auto) 0.7 %; Polychromasia 1+
--- OUTSIDE RECORDS SUMMARY | 2024-02-11 06:38 | External Medical Summary | Summary of Care ---
Author Name Unknown Organization [facility] Address [address] [place] [address] Phone [phone] Care Team Providers Care Route Deliverer Name Role Phone Unavailable Primary Care Provider Unavailabl e Reason for Visit * Reason Comments Chemotherapy Hold chemo IV Therapy Venofer 03/28 Encounter Details Date Type Department Care Team (Latest Contact Info) Description 01/01/2024 9:15 AM EDT Hem/Onc Treatment Hematology/Oncology Treatment, [address] [phone] Kourtney, Chair [address] Hem On[address] [address] Anemia due to chronic renal failure treated with erythropoietin, stage 4 (severe) (HCC)*; Non-small cell cancer of right lung (HCC); Encounter for adjustment and management of vascular access device Allergies Active Allergy Reactions Criticality Noted Date Comments Naproxen Sodium 06/12/2009 Ciprofloxacin 06/12/2009 Exenatide 06/12/2009 Metronidazole Hcl 06/12/2009 Unsure of reaction - thinks was nausea Atorvastatin Calcium Muscle pain Medium 05/17/2011 Lisinopril Other (Please comment) Medium 04/26/2011 Hyperkalemia, possible renal insuff. Nsaids 06/16/2021 Other reaction(s): Unknown Simvastatin Muscle pain Medium 03/23/2011 Also on Tricor and Cardizem documented as of this encounter (statuses as of 02/05/2024) Medications ONETOUCH ULTRA BLUE STRPIndications:DM type 2, goal A1c below 7 Test sugar once daily and for hypo/hyperglycem ic events 100 Strip 5 07/18/19 13 Active Melatonin 5 MG Oral Tablet Chewable Take by mouth. Activ e Albuterol Sulfate (2.5 MG/3ML) 0.083% Inhalation Nebulization Solution (Proventil)Indicat ions:Reactive airway disease, mild intermittent, uncomplicated Inhale via nebulizer 1 Vial every 4 hours as needed for Wheezing. 3 mL 3 07/06/19 22 Active Additional Information Patient not taking.Reported on 10/30/2023 Propranolol HCl ER 60 MG Oral Capsule Extended Release 24 Hour (Inderal LA) Take 1 Capsule by mouth in the morning. 12/28/19 22 Active Losartan Potassium 100 MG Oral Tablet (Cozaar) Take 1 Tablet by mouth in the morning. Active Acetaminophen 500 MG Oral Tablet Take 1 Tablet by mouth every 6 hours as needed. Active Albuterol Sulfate HFA 108 (90 Base) MCG/ACT Inhalation Aerosol SolutionIndication s:COPD, group B, by GOLD 2017 classification ([facility]) Inhale 2 Puffs by mouth 4 times a day as needed for Wheezing. 18 g 4 08/17/19 23 Active Additional Information Patient not taking.Reported on 10/30/2023 Budeson-Glycopyrro l-Formoterol 160-9-4.8 MCG/ACT Inhalation AerosolIndications :COPD, group B, by GOLD 2017 classification ([facility]) Inhale 2 Puffs by mouth daily. Breztri inhaler 10.7 g 11 01/29/20 23 Active Farxiga 5 MG Oral Tablet Take 1 Tablet by mouth in the morning. Active Aspirin 81 MG Oral Tablet Delayed Release (Aspirin 81) Take 1 Tablet by mouth in the morning. Active Omeprazole 20 MG Oral Capsule Delayed Release (PriLOSEC) Take 1 Capsule by mouth in the morning. Active amLODIPine Besylate 5 MG Oral Tablet (Norvasc)Indicatio ns:Lightheadedness ,Essential hypertension with goal blood pressure less than 140/90 Take 0.5 Tablets by mouth daily. 45 Tablet 06/24/19 24 Active buPROPion HCl ER (XL) 150 MG Oral Tablet Extended Release 24 Hour (Wellbutrin XL)Indications:MDD (major depressive disorder), recurrent episode, moderate (HCC) Take 1 Tablet by mouth in the morning. 90 Tablet 3 06/24/19 24 Active Rosuvastatin Calcium 10 MG Oral Tablet (Crestor) TAKE 1 TABLET EVERY MORNING 90 Tablet 3 06/28/19 24 Active Venlafaxine HCl ER 150 MG Oral Capsule Extended Release 24 Hour (Effexor XR)Indications:Dys lipidemia, goal LDL below 70 TAKE 1 CAPSULE EVERY MORNING 90 Capsule 1 09/17/19 24 Active traZODone HCl 100 MG Oral Tablet (Desyrel)Indicatio ns:Persistent insomnia Take 1 Tablet by mouth in the morning. 90 Tablet 3 09/17/19 24 Active Lansoprazole 15 MG Oral Capsule Delayed Release Take 1 Capsule by mouth in the morning. Active Ondansetron HCl 8 MG Oral Tablet (Zofran)Indication s:Squamous cell carcinoma of right lung (HCC) Take 1 Tablet by mouth every 8 hours as needed for Nausea. 30 Tablet 2 11/28/19 24 Active Prochlorperazine Maleate 10 MG Oral Tablet (Compazine)Indicat ions:Squamous cell carcinoma of right lung (HCC) Take 1 Tablet by mouth every 6 hours as needed for Nausea. 30 Tablet 2 11/28/19 24 Active dexAMETHasone 4 MG Oral Tablet (Decadron)Indicati ons:Squamous cell carcinoma of right lung (HCC) Take 20mg (5 tablets) the night before and morning of each chemotherapy appointment 60 Tablet 11/28/19 24 Active Lidocaine-Prilocai ne 2.5-2.5 % External Cream (Emla)Indications: Squamous cell carcinoma of right lung (HCC) APPLY TO SKIN OVER MEDIPORT & COVER 1HR PRIOR TO ACCESSING. 30 g 11/29/19 24 Active documented as of this encounter (statuses as of 02/05/2024) Active Problems Problem Noted Date Diagnosed Date Encounter for adjustment and management of vascular access device 01/01/2024 Anemia due to chronic renal failure treated with erythropoietin, stage 4 (severe) 12/30/2023 CINV (chemotherapy-induced nausea and vomiting) 11/22/2023 Squamous cell lung cancer 11/18/2023 Encounter for antineoplastic chemotherapy 2023 Chronic kidney disease, stage 4 (severe) 024 Overview: Per CKD protocol Malignant neoplasm of lung 07/30/2022 Non-small cell cancer of right lung 01/29/2022 Unspecified atherosclerosis of inaja arteries of extremities, bilateral legs 12/27/2021 History of hysterectomy 12/27/2021 Gastroesophageal reflux disease 12/27/2021 Dilatation of aorta 12/27/2021 Idiopathic peripheral autonomic neuropathy 12/27 Intermittent claudication of both lower extremities due to atherosclerosis 12/27/2021 Occlusion and stenosis of bilateral carotid bebeto ayala 12/27/2021 AAA (abdominal aortic aneurysm) 12/12/2021 Overview (12/12/2021): 3.6 cm AAA noted on PET CT 11/07/21 Mass of right lung 07/24/2021 Overview (07/24/2021): Ground-glass masslike density in the right upper lobe. Two nodules noted in the right lower lobe. Primary osteoarthritis of right shoulder 021 COPD, group B, by GOLD 2017 classification 11/01 Overview: Per COPD GOLD Classification PVD (peripheral vascular disease) 10/09/2019 S/P arterial stent 10/09/2019 Overview (10/09/2019): Left leg 08/11 History of colonic polyps 01/21/2019 Overview (12/24/2023): Overview Signed 10/29/2018 12:46 PM by Addy Leblanc MD Three tubular adenomas removed during colonoscopy 11/10. 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 Removed 01/28/19. Chronic fatigue 03/01/2016 SOLITARIO (generalized anxiety disorder) 11/22/2015 Irritable bowel syndrome without diarrhea 2015 Chronic migraine without aur a without status migrainosus, not intractable 07/18/2015 Essential hypertension with goal blood pressure less than 140/90 07/18/2015 Dyslipidemia, goal LDL below 70 07/04/2015 Persistent insomnia 01/21/2015 JESIKA inhibitor intolerance 12/28/2014 ARB intolerance 12/28/2014 Type 2 diabetes mellitus wit h hemoglobin A1c goal of less than 7.0% 10/13/2012 Smoker 10/13/2012 documented as of this encounter (statuses as of 02/05/2024) Resolved Problems Problem Noted Date Diagnosed Date Resolved Date Chronic kidney disease, stage 3b 02/04/2023 08/07/2023 Overview: Per CKD protocol Chronic kidney disease, stage 3a 12/31/2022 02/07/2023 Overview: Per CKD protocol Encounter for long-term (cur rent) use of medications 10/09/2019 12/27/2021 Overview (10/09/2019): Metformin Tubular adenoma of colon 10/29/2018 Overview (01/21/2019): Three tubular adenomas removed during colonoscopy 11/10. Hx Z86.010 Status post total replacement of right hip 03/21/2018 03/21/2018 Moderate persistent asthma w ithout complication 01/15/2018 07/25/2018 Primary osteoarthritis of right hip 01/15/2018 03/21/2018 Grief reaction 01/15/2018 03/21/2018 Moderate persistent asthma w ithout complication 10/16/2017 01/15/2018 COPD, moderate 10/16/2017 11/05/2019 Overview: Per COPD GOLD Classification Bruised ribs, left, sequela 01/15/2017 04/18/2017 Overview (01/15/2017): Fall 12/29/16 Contusion of lesser toe of l eft foot with damage to nail 03/01/2016 07/04/2016 Overview (03/01/2016): Left second toe injury 01/07/16. Recurrent major depressive d isorder, in full remission 07/18/2015 07/18/2015 Mild intermittent asthma without complication 07/18/19 16 10/16/2017 Asthma exacerbation 07/04/2015 08/19/19 16 Stress reaction 01/21/2015 01/15/2017 Hypertension goal BP (blood pressure) < 140/90 12/28/2014 07/18/2015 Primary osteoarthritis invol ving multiple joints 12/28/2014 09/13/2016 Cutaneous horn 08/27/2014 07/18/2015 Overview (08/27/2014): Right trunk - Removed 08/27/14 ACEI/ARB contraindicated 07/01/201308/2014 Overview (07/01/2013): renal insuffiency and hyperkalemia IBS (irritable bowel syndrome) 03/19/2013 01/28/2019 Candidal vulvovaginitis 01/19/201307/2013 Dyslipidemia, goal LDL below 100 11/13/2012 07/04/2015 Osteoarthritis 10/13/2012 12/28/2014 Depression 10/13/2012 07/18/2015 Overweight (BMI 25.0-29.9) 10/13/2012 1 Shingles 10/13/2012 01/06/2014 Overview (10/13/2012): Right chest wall Osteoarthritis of hip 12/13/20112012 High triglycerides 05/17/2011 3 HYPERPOTASSEMIA-06/02, 0N LISINOPRIL 06/23/2010 06/23/2010 HYPERPOTASSEMIA-on lisinopril 06/0206/16/2010 10/13/2012 Kidney disease, chronic, sta ge III (GFR 30-59 ml/min) 06/16/2010 04/26/2011 Cervical intraepithelial neoplasia grade 2 06/09/2010 10/13/2012 Overview (03/23/2011): GODFREY-BSO 02/26/11-BENIGN KNEE JOINT REPLACEMENT-LEFT 01/3106/09/2010 10/13/2012 Dyslipidemia, goal LDL below 100 03/20/2010 10/13/2012 Tobacco use disorder 12/20/2009 013 Obesity, Class I, BMI 30.0-3 4.9 (see actual BMI) 09/15/2009 10/13/2012 Ankle joint pain 02/12/2011 Carpal tunnel syndrome 01/15 Major depressive disorder Overview (01/15/2017): ICD-10 update of inactive term Anxiety state 10/13/2012 Type 2 diabetes mellitus wit h hemoglobin A1c goal of less than 7.0% 10/13/2012 Overview (07/19/2015): ICD-10 update of inactive term Dyslipidemia, goal LDL below 70 03/20/2010 Sciatica 10/13/2012 DIVERTICULITIS OF COLON-RECURRENT 01/15/2017 Female stress incontinence 0 10/13/2012 Menopause 02/12/2011 Obesity, BMI not known 02/12 MIGRAINE, NOS 07/18/2015 Hypertension goal BP (blood pressure) < 140/80 12/28/2014 History of tobacco use 02/12 documented as of this encounter (statuses as of 02/05/2024) Immunizations Name Administration Dates Next Due COVID-19 mRNA, LNP-s, No Pre serve, 2-Dose Series (Moderna) 09/10/2020,08/15/2020 COVID-19, mRNA, LNP-s, PF, B ooster, 100mcg/0.5mg (Moderna) 03/09/2021 Diptheria/Tetanus (Adult) 10/28/2006 H1N1 2009 Influenza, IM 01/01/2009 Hepatitis B, 20+ yrs 07/04/2016 Pneumococcal Conjugate Vacc, 13 Valent (Prevnar) 11/22/2015 Pneumococcal Polysaccharide PPV23 (Pneumovax) 01/15/2017,07/20/2006 Season Influenza, Quad, PF, Adjuvanted, 65+ Yrs, IM (FLUAD) 01/05/2020 Seasonal Influenza Vac., MDV , IM, 0.5 mL (Fluzone) 01/06/2014,03/19/2013,01/11/2011,12/30,12/30/2008 Seasonal Influenza, High Dos e, Trivalent, PF, IM (Fluzone HD) 11/27/2023,01/15/2017 Seasonal Influenza, PF, 6 M & above, IM , (FluLaval or Fluzone) 01/15/2018 Seasonal Influenza, Quadriva lent Hd (Fluzone Hd) 12/27/2021,12/22/2020 Seasonal Influenza, Quadriva lent, No Preserve, IM 01/14/2016,12/28/2014 Seasonal Influenza, Trivalen t, Adjuvanted, 65+ YRS, PF, (Fluad) 03/23/2019,12/17/2018 TDAP (age 10 and older)(Boostrix) 01/29/2013 Varicella Zoster Vaccine (Adult) 10/05/2013 Zoster Vaccine Recombinant (Shingrix) 10/09/2019 documented as of this encounter Social History Tobacco Use Types Packs/Day Years Used Date Smoking Tobacco: Every Day Cigarettes 1 45 Smokeless Tobacco: Never Alcohol Use Standard Drinks/Week Comments No 0 (1 standard drink = 0.6 oz pur e alcohol) PHQ-2 Answer Date Recorded PHQ Adult Total Score 3 10/18/2020 Hunger Vital Sign Answer Date Recorded Worried About Running Out of Food in the Last Ye ar Never true 10/09/2019 Ran Out of Food in the Last Year Never true 10/09/2019 Utilities Answer Date Recorded Do you have trouble paying y our heating, water, or electric bill? (Adult - for ages 18 years and over) Not on file 09/10/2023 Is your family able to pay t he heat, water, or electric bill? (Household - for ages 0-17 years) Not on file 09/10/2023 Does your family have access to good internet? (Household - for ages 0-17 years) Not on file 09/10/2023 Social Connections Answer Date Recorded How often do you feel lonely or isolated from those around you? (Adult - for ages 18 years and over) Not on file 09/10/2023 Comments No Sex and Gender Information Value Date Recorded Sex Assigned at Not on file Legal Sex Female 6:00 AM EST Gender Identity Not on file Sexual Orientation Not on file documented as of this encounter Last Filed Vital Signs Vital Sign Reading Time Taken Comments Blood Pressure 149/71 01/01/2024 10:21 AM EDT Pulse 80 01/01/2024 10:21 AM EDT Temperature 36.3 C (97.4 F) 01/01/2024 10:21 AM E DT Respiratory Rate 16 01/01/2024 10:21 AM EDT Oxygen Saturation 95% 01/01/2024 10:21 AM EDT Inhaled Oxygen Concentration - - Weight 60.4 kg (133 lb 3.2 oz) 01/01/2024 10:21 AM EDT Height - - Body Mass Index 23.6 11/28/2023 2:37 PM EDT documented in this encounter Nursing Notes * Kathy Avendano RN - 01/01/2024 5:02 PM EDT Goals: Patient will remain free from injury. Possible barriers to meeting goals: ambulating with IV pole, use of walker Stability of the patient: Moderately stable - low risk of patient condition declining or worsening Summary regarding today's goals: Met: pt remained free of harm today Patient tolerated treatment well without any acute issues or problems. Patient left facility in stable condition and denied any further needs. * Kathy Avendano RN - 01/01/2024 5:01 PM EDT TPA instilled after Venofer infusion since no tinge of blood returned with flushing and repositioning and no blood return at all. TPA instilled at 12:35 pm. TPA dwelling. TPA removed at 1:30 pm with positive blood return again. Flushes freely with good blood return. * Kathy Avendano RN - 01/01/2024 10:22 AM EDT Chair 7. Port accessed by JOSH, RN - only a tinge of blood return noted despite multiple flushes and repositioning. Patient's hgb is 8.1 today -- hgb last week was 7.6 and patient's chemo was held. She saw KARIN Wilde last week -- offered for pt to get 1 unit RBCs but patient refused blood transfusion. Hgb of 8.[address] Young today -- patient feels fatigued and states she does seem to get dizzy which is new for her, happens hen she stands for long periods of time. She will still receive dose 1/[address] Young, it would be okay to proceed with chemo treatment today if patient would be agreeable to the possibility of needing a unit of RBCs next week or between now andher next chemo if needed based on lab work. We can proceed only if patient agrees to this possibility. If patient would rather not receive RBCs, then will hold chemo and delay x1 week but she will receive IV Venofer today regardless of decision and then again x3 weeks afterwards. Patient and were made aware of the options. Patient states she would really like to avoid getting a blood transfusion if possible -- she would rather delay chemo x1 week again and just get IV iron today. She was educated about the options and what the options entailed - she made an informed decision with at chair side as well. Patient states that if she does still have borderline low hgb next week, she will then agree to receive blood in this case if necessary and hopefully get chemo treatment next week along with Venofer. Safety and Risk for Injury Patient will remain free from injury. Ensure appropriate safety devices are available. Provide and maintain safe environment. Patient instructed on use of heat and massage functions where applicable. Patient shown how to operate the heat function of the chair and to alert nursing staff if the chair feels too warm. Patient instructed on the risk of potential rainey while using the heat function. documented in this encounter Plan of Treatment Upcoming Encounters Date Type Department Care Team (Late st Contact Info) Description 02/12/2024 9:40 AM EST Laboratory [facility] [address] [place] [phone] [place], Lab Scen[address] [facility] [place] [address] 02/12/2024 10:15 AM EST Office Visit Hematology/Oncology [facility] [place] [address] [place], [place] [phone] Lisa Lopez MD [address] [place] [address] 02/12/2024 11:00 AM EST Hem/Onc Treatment Hematology/Oncology Treatment, [place] [address] [place], [place] [id number] Kourtney, Chair 6 Hem Onc [facility] [address] [facility] [place] [address] 03/04/2024 9:45 AM EST Pharmacy Pharmacy Hematology Oncology [place] [address] [place] [address] [facility] [place] Hem/Onc [address] [place] [address] 03/23/2024 5:00 PM EST Office Visit Family Practice [address] [place] [address] Vidal Barba MD [address] [place] [address] Health Maintenance Due Date Last Done Comments Alpha-1 Antitrypsin 1968 Cologuard 11/05/1995 Sigmoidoscopy 11/05/1995 Fecal Occult Blood Test 12/16/2012 12/17/2011 DISCUSS TOBACCO CESSATION (REFER TO SMARTSET #3291) 12/29/2015 12/28/2014 (Discussed) Hepatitis B Vaccine (2 of 3 - 19+ 3-dose series) 08/01/2016 07/04/2016 Diabetic Eye Exam 05/12/2019 05/12/2018, , 03/16/2016, Additional history exists Zoster Vaccines (3 of 3) 12/04/2019 10/09/2019, 09/22 Adult Wellness Visit 07/11/2021 07/11/2020 Diabetic Foot Exam 07/11/2021 07/11/2020, 0 10/09/2019, 11/03/2018, Additional history exists Depression Monitoring 10/18/2021 10/18/2020 DTap/Tdap Vaccines (2 - Td or Tdap) 01/29/2023 01/29/2013, 10/28/2006 Nephrology Referral 08/14/2023 08/13/2022 COVID-19 Vaccine ( season) 2023 03/09/2021, 09/10/2020, 08/15/2020 HbA1c 07/13/2024 01/13/2024, 08/23, 07/04/2023, Additional history exists GFR 07/22/2024 01/22/2024, 12/24, 01/13/2024, Additional history exists AAA Monitoring 09/09/2024 09/10/2023, 10/24, 11/24/2021, Additional history exists Mammogram 10/21/2024 10/22/2023, 09/23, 09/02/2019, Additional history exists B-12 12/24/2024 12/25/2023, 05/0 10/2022, 07/01/2017, Additional history exists Albumin/Creatinine Ratio 01/12/2025 024, 09/11/2023, 04/29/2023, Additional history exists PTH 01/12/2025 01/13/2024, 08/23, 01/11/2023, Additional history exists Phosphate 01/12/2025 01/13/2024, 08/23, 02/05/2023, Additional history exists Hgb 01/21/2025 01/22/2024, 12/24, 01/13/2024, Additional history exists O2 ASSESSMENT COMPLETED IN PAST YEAR FOR COPD 01/22/2025 01/23/2024 Colonoscopy 10/21/2028 10/21/2018, 04/03/2011 Colorectal Cancer Screening 10/21/2028 DXA Scan 10/17/2029 10/17/2022, 01/13/2016 Pneumococcal Vaccine: 65+ Years Completed 01/15/2017, 11/22/2015, 07/20/2006 Influenza Vaccine (FLU shot) Completed 06/2023, 12/27/2021, 12/22/2020, Additional history exists HPV (Gardasil) Vaccine Aged Out No lo nger eligible based on patient's age to complete this topic MENINGOCOCCAL (MENACTRA/MENVEO) Aged Out No longer eligible based on patient's age to complete this topic documented as of this encounter Medical Devices Not on filedocumented as of this encounter Visit Diagnoses Diagnosis Anemia due to chronic renal failure treated with erythropoietin, stage 4 (severe) (HCC)- Primary Non-small cell cancer of right lung (HCC) Encounter for adjustment and management of vascular access device documented in this encounter Administered Medications Inactive Administered Medications - up to 3 most recent administrations Medication Order MAR Action Action Date Dose Rate Site Alteplase (Cathflo Activase) inj 2 mg 2 mg, IV Push, ONCE, On Sat01/01/24 at 1715, For 1 dose, Reconstitute Alteplase (CathFlo Activase) 2mg in 2.2ml sterile water. Do not use Bacteriostatic Water for injection. Instill the 2.2 mL of Sterile Water for Injection, LONG-TERM, into the vial, directing the diluent stream into the powder. Slight foaming is not unusual; let the vial stand undisturbed to allow large bubbles to dissipate. Mix by gently whirling until the contents are completely dissolved, complete dissolution should occur within 3 minutes. DO NOT SHAKE! The reconstituted preparation resulting in a colorless to pale yellow transparent solution containing 1m/1mL Cathflow Activase at a pH of approximately 7.3. The solution may be used for intracatheter instillation within 8 hours following reconstitution when stored at 2-30 degrees C.Indications:Non-small cell cancer of right lung (HCC),Encounter for adjustment and management of vascular access device Given 01/01/2024 12:35 PM EDT 2 mg hEParin 100 UNIT/ML Lock Flush inj 500 Units 500 Units (5 mL), IV Lock, PRN Other, IV Flush, Starting on Sat01/01/24 at 1034, Until Sat01/01/24 at 2108, For 24 hours, Do not flush if lock, PICC, or central line not in place; IV infusing or unable to flush.Indications:Anemia due to chronic renal failure treated with erythropoietin, stage 4 (severe) (HCC) Given 01/01/2024 12:21 PM EDT 500 Units Iron Sucrose (Venofer) 300 mg in NSS 250 mL ivpb 300 mg, IV Piggyback, ONCE, 1 dose, On Sat01/01/24 at 1215, Administer over 90 MinutesIndications:Anemia due to chronic renal failure treated with erythropoietin, stage 4 (severe) (HCC) Start Infusion 01/01/2024 10:41 AM EDT 300 mg 180 mL/hr NSS infusion 500 mL, Intravenous, at 50 mL/hr, CONTINUOUS, Starting on Sat01/01/24 at 1145, Until Sat01/01/24 at 2108Indications:Anemia due to chronic renal failure treated with erythropoietin, stage 4 (severe) (HCC) Start Infusion 01/01/2024 10:38 AM EDT 500 mL 50 mL/hr sodium chloride 0.9 % flush central line 10 mL 10 mL, IV Push, PRN Other, IV Flush, Starting on Sat01/01/24 at 1034, Until Sat01/01/24 at 2108, For 24 hours, Do not flush if lock, PICC, or central line not in place; IV infusing or unable to flush.Indications:Anemia due to chronic renal failure treated with erythropoietin, stage 4 (severe) (HCC) Given 01/01/2024 12:21 PM EDT 10 mL documented in this encounter
--- OUTSIDE RECORDS SUMMARY | 2024-02-11 06:39 | External Medical Summary | Summary of Care ---
Author Name Unknown Organization [facility] Address [address] [place] [address] Phone [phone] Care Team Providers Care Double Backer Name Role Phone Unavailable Primary Care Provider Unavailabl e Reason for Visit * Reason Comments Chemotherapy Hold chemo IV Therapy Venofer 03/28 Encounter Details Date Type Department Care Team (Latest Contact Info) Description 01/01/2024 9:15 AM EDT Hem/Onc Treatment Hematology/Oncology Treatment, [address] [phone] Kourtney, Chair [address] On[address] [address] Anemia due to chronic renal failure treated [...] s:COPD, group B, by GOLD 2017 classification ([facility]) Inhale 2 Puffs by mouth 4 times a day as needed for Wheezing. 18 g 4 08/17/19 23 Active Additional Information Patient not taking.Reported on 10/30/2023 Budeson-Glycopyrro l-Formoterol 160-9-4.8 MCG/ACT Inhalation AerosolIndications :COPD, group B, by GOLD 2017 classification ([facility]) Inhale 2 Puffs by mouth daily. Breztri [...] of right lung 01/29/2022 Unspecified atherosclerosis of [place] arteries of extremities, bilateral legs 12/27/2021 History [...] State Raiza Huff [address] [place] [address] [place], Lab Scenery [address] [facility] [place] [address] 02/12/2024 10:15 AM EST Office Visit Hematology/Oncology [facility] [place] [address] [place], [place] [phone] Lisa Lopez MD [address] [place] [address] 02/12/2024 11:00 AM EST Hem/Onc Treatment Hematology/Oncology Treatment, [place] [address] [place], [place] [phone] Kourtney, Chair 6 Hem Onc [facility] [address] [facility] [place] [address] 03/04/2024 9:45 AM EST Pharmacy Pharmacy Hematology Oncology [place] [address] [place] [address] [facility] [place] [facility] Hem/Onc [address] [place] [address] 03/23/2024 5:00 PM EST Office Visit Family Practice [address] [place] [address] Vidal Barba MD [address] [place] [address] Health Maintenance Due Date Last Done Comments [...] 2.2 mL of Sterile Water for Injection, CORRECTION, into the vial, directing the diluent stream [...]
--- OUTSIDE RECORDS SUMMARY | 2024-02-11 06:39 | External Medical Summary | Summary of Care ---
Author Name Unknown Organization [facility] Address [address] [place] [address] Phone [phone] Care Team Providers Care General Internist And Physician Leader Name Role Phone Unavailable Primary Care Provider Unavailabl e Reason for Visit * Reason Comments Chemotherapy Hold chemo IV Therapy Venofer 03/28 Encounter Details Date Type Department Care Team (Latest Contact Info) Description 01/01/2024 9:15 AM EDT Hem/Onc Treatment Hematology/Oncology Treatment, [address] [address] Kourtney, Chair 9 Hem On[address] [address] Anemia due to chronic renal failure treated [...] s:COPD, group B, by GOLD 2017 classification ([facility]) Inhale 2 Puffs by mouth 4 times a day as needed for Wheezing. 18 g 4 08/17/19 23 Active Additional Information Patient not taking.Reported on 10/30/2023 Budeson-Glycopyrro l-Formoterol 160-9-4.8 MCG/ACT Inhalation AerosolIndications :COPD, group B, by GOLD 2017 classification ([facility]) Inhale 2 Puffs by mouth [...] of right lung 01/29/2022 Unspecified atherosclerosis of [place] arteries of extremities, bilateral legs 12/27/2021 History [...] State Raiza Huff [address] [place] [phone] [place], Lab Scenery [address] [facility] [place] [address] 02/12/2024 10:15 AM EST Office Visit Hematology/Oncology [facility] [place] [address] [place], [place] [phone] Lisa Lopez MD [address] [place] [address] 02/12/2024 11:00 AM EST Hem/Onc Treatment Hematology/Oncology Treatment, [place] [address] [place], [place] [phone] Kourtney, Chair 6 Hem Onc [facility] [address] [facility] [place] [address] 03/04/2024 9:45 AM EST Pharmacy Pharmacy Hematology Oncology [place] [address] [place] [address] [facility] [place] [facility] Hem/Onc [address] [place] [address] 03/23/2024 5:00 PM EST Office Visit Family Practice [address] [place] [address] Vidal Barba MD [address] [place] [address] Health Maintenance Due Date Last Done Comments [...] 2.2 mL of Sterile Water for Injection, FDC, into the vial, directing the diluent stream [...]
--- OUTSIDE RECORDS SUMMARY | 2024-02-11 06:39 | External Medical Summary | Summary of Care ---
Author Name Unknown Organization [facility] Address [address] [place] [address] Phone [phone] Care Team Providers Care Forest Pathology Associate Professor Name Role Phone Vidal Barba MD Primary Care Provider [phone] Reason for Visit * Reason Comments IV Therapy Venofer Nurse Documentation Holding chemo today Encounter Details Date Type Department Care Team (Latest Contact Info) Description 01/09/2024 9:45 AM EDT Hem/Onc Treatment Hematology/Oncology Treatment, [address] [address] Kourtney, Chair 2 Hem Onc [address] [address] Anemia due to chronic renal failure treated with erythropoietin, stage 4 (severe) (HCC)* Allergies Active Allergy Reactions Criticality Noted Date [...] as of this encounter (statuses as of 02/04/2024) Medications ONETOUCH ULTRA BLUE STRPIndications:DM type 2, [...] s:COPD, group B, by GOLD 2017 classification ([facility]) Inhale 2 Puffs by mouth 4 times a day as needed for Wheezing. 18 g 4 08/17/19 23 Active Additional Information Patient not taking.Reported on 10/30/2023 Budeson-Glycopyrro l-Formoterol 160-9-4.8 MCG/ACT Inhalation AerosolIndications :COPD, group B, by GOLD 2017 classification ([facility]) Inhale 2 Puffs by mouth [...] TO ACCESSING. 30 g 11/29/19 24 Active Osimertinib Mesylate 40 MG Oral Tablet (Tagrisso)Indicati ons:Non-small cell cancer of right lung (HCC) Take 40 mg by mouth in the morning. Take medication about same time every day, with or without food.. 30 Tablet 5 4 3:13 PM EST 01/08/20 24 Active documented as of this encounter (statuses as of 02/04/2024) Active Problems Problem Noted Date Diagnosed Date [...] of right lung 01/29/2022 Unspecified atherosclerosis of [place] arteries of extremities, bilateral legs 12/27/2021 History [...] as of this encounter (statuses as of 02/04/2024) Resolved Problems Problem Noted Date Diagnosed Date [...] (irritable bowel syndrome) 03/19/2013 01/28/2019 Candidal vulvovaginitis 01/19/2013 1207/2013 Dyslipidemia, goal LDL below 100 11/13/2012 07/04/2015 Osteoarthritis 10/13/2012 12/28/2014 Depression 10/13/2012 07/18/2015 Overweight (BMI 25.0-29.9) 10/13/2012 1 Shingles 10/13/2012 01/06/2014 Overview (10/13/2012): Right chest wall Osteoarthritis of hip 12/13/20112012 High triglycerides 05/17/2011 3 HYPERPOTASSEMIA-3/11, 0N LISINOPRIL 06/23/2010 06/23/2010 HYPERPOTASSEMIA-on lisinopril 06/0206/16/2010 [...] as of this encounter (statuses as of 02/04/2024) Immunizations Name Administration Dates Next Due COVID-19 [...] Sign Reading Time Taken Comments Blood Pressure 136/78 01/09/2024 9:45 AM EDT Pulse 80 01/09/2024 9:45 AM EDT Temperature 36.7 C (98.1 F) 01/09/2024 9:45 AM ED T Respiratory Rate 16 01/09/2024 9:45 AM EDT Oxygen Saturation 96% 01/09/2024 9:45 AM EDT Inhaled Oxygen Concentration - - Weight 60.7 kg (133 lb 12.8 oz) 01/09/2024 9:45 AM EDT Height - - Body Mass Index 23.71 11/28/2023 2:37 PM EDT documented in this encounter Nursing Notes * Tiffany Cohen RN - 01/09/2024 1:40 PM EDT Goals: Patient will remain free from injury. Possible barriers to meeting goals: ambulation with IV pole, use of assistive device for ambulation Stability of the patient: Moderately stable - low risk of patient condition declining or worsening Summary regarding today's goals: Met: patient without injury during treatment today. Pt tolerated infusion well. No complaints. Discharged in stable condition. * Tiffany Cohen, RN - 01/09/2024 11:02 AM EDT Chair 2 Pt here for Venofer 04/28 and scheduled for C2D1 chemo. Pt reports she continues to feel fatigued, unchanged from last week. Labs and patient report reviewed with Keily Loco NP. Ok to receive venofer today but instructed to hold chemo for one week with goal that hgb at least 9 before receiving next treatment. Pt and notified and agree to plan. Safety and Risk for Injury Patient will remain free from injury. Ensure appropriate safety devices are available. Provide and maintain safe environment. documented in this encounter Plan of Treatment Upcoming Encounters Date Type Department Care Team (Late st Contact Info) Description 02/12/2024 9:40 AM EST Laboratory Laboratory [facility] [place] [address] [place] [phone] [place], Lab Scenery [address] [place] [address] 02/12/2024 10:15 AM EST Office Visit Hematology/Oncology [facility] [place] [address] [place] [phone] Lisa Lopez MD [address] [place] [address] 02/12/2024 11:00 AM EST Hem/Onc Treatment Hematology/Oncology Treatment, [place] [address] [place] [phone] Kourtney, Chair 6 Hem Onc Scenery [address] [facility] [place] [address] 03/04/2024 9:45 AM EST Pharmacy Pharmacy Hematology Oncology [place] [address] [place] [address] [facility] [place] [facility] Hem/Onc [address] [place] [address] 03/23/2024 5:00 PM EST Office Visit Family Practice [address] [place] [address] Vidal Barba MD [address] [place] [address] Health Maintenance Due Date Last Done Comments [...] with erythropoietin, stage 4 (severe) (HCC)- Primary documented in this encounter Administered Medications Inactive Administered Medications - up to 3 most recent administrations Medication Order MAR Action Action Date Dose Rate Site hEParin 100 UNIT/ML Lock Flush inj 500 Units 500 Units (5 mL), IV Lock, PRN Other, IV Flush, Starting on Staci 01/09/24 at 0946, Until Staci 01/09/24 at 1750, For 24 hours, Do not flush if lock, PICC, or central line not in place; IV infusing or unable to flush.Indications:Anemia due to chronic renal failure treated with erythropoietin, stage 4 (severe) (HCC) Given 01/09/2024 11:45 AM EDT 500 Units Iron Sucrose (Venofer) 300 mg in NSS 250 mL ivpb 300 mg, IV Piggyback, ONCE, 1 dose, On Staci 01/09/24 at 1130, Administer over 90 MinutesIndications:Anemia due to chronic renal failure treated with erythropoietin, stage 4 (severe) (HCC) Start Infusion 01/09/2024 9:59 AM EDT 300 mg 180 mL/hr NSS infusion 500 mL, Intravenous, at 50 mL/hr, CONTINUOUS, Starting on Staci 01/09/24 at 1100, Until Staci 01/09/24 at 1750Indications:Anemia due to chronic renal failure treated with erythropoietin, stage 4 (severe) (HCC) Start Infusion 01/09/2024 9:56 AM EDT 500 mL 50 mL/hr sodium chloride 0.9 % flush central line 10 mL 10 mL, IV Push, PRN Other, IV Flush, Starting on Staci 01/09/24 at 0946, Until Staci 01/09/24 at 1750, For 24 hours, Do not flush if lock, PICC, or central line not in place; IV infusing or unable to flush.Indications:Anemia due to chronic renal failure treated with erythropoietin, stage 4 (severe) (HCC) Given 01/09/2024 11:45 AM EDT 10 mL documented in this encounter Care Teams Forest Pathology Associate Professor Relationship Specialty Start Date End Date Vidal Barba MD [address] [facility] [place] [address] PCP - General Family Medicine 01/02/24 documented as of this encounter
--- OUTSIDE RECORDS SUMMARY | 2024-02-11 06:39 | External Medical Summary | Summary of Care ---
Author Name Unknown Organization [facility] Address [address] [place] [address] Phone [phone] Care Team Providers Care Helicopter Repairer Name Role Phone Vidal Barba MD Primary Care Provider [phone] Reason for Visit * Reason Comments Infusion Venofer infusion Chemotherapy Day 1, cycle 2 Keytr uda, paclitaxel, carboplatin Encounter Details Date Type Department Care Team (Latest Contact Info) Description 01/16/2024 8:30 AM EDT Hem/Onc Treatment Hematology/Oncolog y Treatment, [place] [address] [place] [address] Kourtney, Chair 9 Hem Onc Scene [address] [place] [address] Anemia due to chronic renal failure treated with erythropoietin, stage 4 (severe) (HCC)*; Squamous cell carcinoma of right lung (HCC); Non-small cell cancer of right lung (HCC); Encounter for antineoplastic chemotherapy; CINV (chemotherapy-induced nausea and vomiting) Allergies Active Allergy Reactions Criticality Noted Date [...] as of this encounter (statuses as of 02/03/2024) Medications ONETOUCH ULTRA BLUE STRPIndications:DM type 2, [...] B, by GOLD 2017 classification ([facility]) Inhale 2 Puffs by mouth 4 times a day as needed for Wheezing. 18 g 4 08/17/19 23 Active Additional Information Patient not taking.Reported on 10/30/2023 Budeson-Glycopyrro l-Formoterol 160-9-4.8 MCG/ACT Inhalation AerosolIndications :COPD, group B, by GOLD 2017 classification ([facility]) Inhale 2 Puffs by mouth [...] as of this encounter (statuses as of 02/03/2024) Active Problems Problem Noted Date Diagnosed Date [...] of right lung 01/29/2022 Unspecified atherosclerosis of [place] arteries of extremities, bilateral legs 12/27/2021 History [...] as of this encounter (statuses as of 02/03/2024) Resolved Problems Problem Noted Date Diagnosed Date [...] neoplasia grade 2 06/09/2010 10/13/2012 Overview (03/23/2011): [facility] 02/26/11-BENIGN KNEE JOINT REPLACEMENT-LEFT 01/3106/09/2010 10/13/2012 Dyslipidemia, [...] as of this encounter (statuses as of 02/03/2024) Immunizations Name Administration Dates Next Due COVID-19 [...] Sign Reading Time Taken Comments Blood Pressure 149/65 01/16/2024 8:57 AM EDT Pulse 84 01/16/2024 8:57 AM EDT Temperature 36.4 C (97.5 F) 01/16/2024 8:57 AM ED T Respiratory Rate 18 01/16/2024 8:57 AM EDT Oxygen Saturation 92% 01/16/2024 8:57 AM EDT Inhaled Oxygen Concentration - - Weight 61.9 kg (136 lb 6.4 oz) 01/16/2024 8:57 A M EDT Height - - Body Mass Index 24.17 11/28/2023 2:37 PM EDT documented in this encounter Nursing Notes * Maddi Pak, RN - 01/16/2024 12:02 PM EDT Patient states that she has changed her mind and does not want chemo today. States she is just not feeling well. Appointments changed and patient agreeable to the changes. Venofer infusion complete. Patient tolerated well. VAD with + blood return, flushed with 10 ml NSS and Heparin 5 ml (100 units/ml). Khan needle removed intact. Dry dressing applied. Goals: Patient will remain free from injury. Possible barriers to meeting goals: IV pump/IV tubing Stability of the patient: Moderately stable - low risk of patient condition declining or worsening Summary regarding today's goals: Met: Patient remained free from harm/injury during treatment. Patient left facility in stable condition. * Maddi Pak, RN - 01/16/2024 9:22 AM EDT Chair 9. Patient here for treatment. Patient reports feeling nauseated and dizzy. Vital signs stable. Patient states that she forgot to take her steroid last night. Reviewed this with Dr. Lopez and also her lab results: HGB 9.[address] Lopez, ok to proceed. Patient agreeable for treatment. VAD accessed without difficulty, + blood return, flushed with 10 ml NSS and dressing applied. Venofer infusion started. Chemotherapy/Immunotherapy agents: CARBOPLATIN, KEYTRUDA, and TAXOL Consent for chemotherapy drug treatment complete, dated, and signed? yes, date - 11/27/23 Treatment lab parameters met? Yes Has treatment weight changed > than 10%? No Treatment preauthorized? Yes VITALS Filed Vitals: 01/16/24 0857 BP: 149/65 Pulse: 84 Resp: 18 Temp: 36.4 C (97.5 F) TempSrc: Tympanic SpO2: 92% Weight: 61.9 kg (136 lb 6.4 oz) Urine protein: N/A Patient education completed for treatment? Yes Blood transfusion consent signed and complete? NA Return appointment scheduled? Yes Patient had provider visit today? No - If no provider visit must complete Pretreatment Assessment Functional Status: Functional status at today's visit: Fully active, able to carry on all pre-disease performance without restriction The drug name, dose, infusion volume, rate and route of administration, expiration date and time, appearance and physical integrity of the drug and rate set on the pump and sequencing of drug administration (as applicable) were verified by me and second sign-in RN. Patient was assessed for symptoms or adverse side effects during treatment. Patient Education: Patient instructed on use of heat and massage functions where applicable. Patient shown how to operate the heat function of the chair and to alert nursing staff if the chair feels too warm. Patient instructed on the risk of potential rainey while using the heat function. PRE-TREATMENT ASSESSMENT: NEURO: dizziness: patient with complaints of dizziness this AM, vitals stable CV/RESP: denies symptoms GI/: nausea: Reports slight nausea OTHER: denies any additional symptoms PAIN: 0 Safety and Risk for Injury Patient will remain free from injury. Ensure appropriate safety devices are available. Provide and maintain safe environment. documented in this encounter Plan of Treatment Upcoming Encounters Date Type Department Care Team (Late st Contact Info) Description 02/12/2024 9:40 AM EST Laboratory Laboratory [facility] [place] [address] [place] [phone] [place], Lab [facility] [place] [address] [facility] [place] [address] 02/12/2024 10:15 AM EST Office Visit Hematology/Oncology [facility] [place] [address] [place] [phone] Lisa Lopez MD [address] [place] [address] 02/12/2024 11:00 AM EST Hem/Onc Treatment Hematology/Oncology Treatment, [place] [address] [place] [phone] Kourtney, Chair 6 Hem Onc [facility] [place] [address] [facility] [place] [address] 03/04/2024 9:45 AM EST Pharmacy Pharmacy Hematology Oncology [facility] [address] [place] [address] [facility] [place], [facility] Hem/Onc [address] [place] [address] 03/23/2024 5:00 PM EST Office Visit Family Practice [address] [place] [address] Vidal Barba MD [address] [place] [address] Health Maintenance Due Date Last Done Comments [...] with erythropoietin, stage 4 (severe) (HCC)- Primary Squamous cell carcinoma of right lung (HCC) Non-small cell cancer of right lung (HCC) Encounter for antineoplastic chemotherapy CINV (chemotherapy-induced nausea and vomiting) Nausea with vomiting documented in this encounter Administered Medications Inactive Administered Medications - up to 3 most recent administrations Medication Order MAR Action Action Date Dose Rate Site hEParin 100 UNIT/ML Lock Flush inj 500 Units 500 Units (5 mL), IV Lock, PRN Other, IV Flush, Starting on Staci 01/16/24 at 0856, Until Staci 01/16/24 at 1949, For 24 hours, Do not flush if lock, PICC, or central line not in place; IV infusing or unable to flush.Indications:Anemia due to chronic renal failure treated with erythropoietin, stage 4 (severe) (HCC) Given 01/16/2024 11:19 AM EDT 500 Units Iron Sucrose (Venofer) 300 mg in NSS 250 mL ivpb 300 mg, IV Piggyback, ONCE, 1 dose, On Staci 01/16/24 at 1030, Administer over 90 MinutesIndications:Anemia due to chronic renal failure treated with erythropoietin, stage 4 (severe) (HCC) Start Infusion 01/16/2024 9:04 AM EDT 300 mg 180 mL/hr NSS infusion 500 mL, Intravenous, at 50 mL/hr, CONTINUOUS, Starting on Staci 01/16/24 at 1000, Until Staci 01/16/24 at 1949Indications:Anemia due to chronic renal failure treated with erythropoietin, stage 4 (severe) (HCC) Start Infusion 01/16/2024 9:03 AM EDT 500 mL 50 mL/hr sodium chloride 0.9 % flush central line 10 mL 10 mL, IV Push, PRN Other, IV Flush, Starting on Staci 01/16/24 at 0856, Until Staci 01/16/24 at 1949, For 24 hours, Do not flush if lock, PICC, or central line not in place; IV infusing or unable to flush.Indications:Anemia due to chronic renal failure treated with erythropoietin, stage 4 (severe) (HCC) Given 01/16/2024 11:19 AM EDT 10 mL documented in this encounter Care Teams Helicopter Repairer Relationship Specialty Start Date End Date Vidal Barba MD [address] [facility] [place] [address] PCP - General Family Medicine 01/02/24 documented as of this encounter
--- OUTSIDE RECORDS SUMMARY | 2024-02-11 06:39 | External Medical Summary | Summary of Care ---
Author Name Unknown Organization [facility] Address [address] [place] [address] Phone [phone] Care Team Providers Care Reel Hooker Name Role Phone Vidal Barba MD Primary Care Provider [phone] Reason for Visit * Reason Comments Infusion Venofer infusion Chemotherapy Day 1, cycle 2 Keytr uda, paclitaxel, carboplatin Encounter Details Date Type Department Care Team (Latest Contact Info) Description 01/16/2024 8:30 AM EDT Hem/Onc Treatment Hematology/Oncolog y Treatment, [place] [address] [place] [address] Kourtney, Chair 9 Hem Onc Scene [address] [place] [address] Anemia due to chronic renal [...] B, by GOLD 2017 classification ([facility]) Inhale 2 Puffs by mouth 4 times a day as needed for Wheezing. 18 g 4 08/17/19 23 Active Additional Information Patient not taking.Reported on 10/30/2023 Budeson-Glycopyrro l-Formoterol 160-9-4.8 MCG/ACT Inhalation AerosolIndications :COPD, group B, by GOLD 2017 classification ([facility]) Inhale 2 Puffs by mouth [...] of right lung 01/29/2022 Unspecified atherosclerosis of [place] arteries of extremities, bilateral legs 12/27/2021 History [...] neoplasia grade 2 06/09/2010 10/13/2012 Overview (03/23/2011): [facility] 02/26/11-BENIGN KNEE JOINT REPLACEMENT-LEFT 01/3106/09/2010 10/13/2012 Dyslipidemia, [...] Description 02/12/2024 9:40 AM EST Laboratory Laboratory [facility] [place] [address] [place] [phone] Kourtney, Lab [facility] [address] [facility] [place] [address] 02/12/2024 10:15 AM EST Office Visit Hematology/Oncology [facility] [place] [address] [place] [phone] Lisa Lopez MD [address] [place] [address] 02/12/2024 11:00 AM EST Hem/Onc Treatment Hematology/Oncology Treatment, [place] [address] [place] [phone] Kourtney, Chair 6 Hem Onc [facility] [address] [facility] [place] [address] 03/04/2024 9:45 AM EST Pharmacy Pharmacy Hematology Oncology [facility] [address] [place] [address] [facility] [place] Hem/Onc [address] [place] [address] 03/23/2024 5:00 PM EST Office Visit Family Practice [address] [place] [address] Vidal Barba MD [address] [place] [address] Health Maintenance Due Date Last Done Comments [...] mL documented in this encounter Care Teams Reel Hooker Relationship Specialty Start Date End Date Vidal Barba MD [address] [facility] [place] [address] PCP - General Family Medicine 01/02/24 documented as of this encounter
--- OUTSIDE RECORDS SUMMARY | 2024-02-11 06:39 | External Medical Summary | Summary of Care ---
Author Name Unknown Organization [facility] Address [address] [place] [address] Phone [phone] Care Team Providers Care Service Technician Copier Name Role Phone Vidal Barba MD Primary Care Provider [phone] Reason for Visit * Reason Comments IV Therapy Venofer Nurse Documentation Holding chemo today Encounter Details Date Type Department Care Team (Latest Contact Info) Description 01/09/2024 9:45 AM EDT Hem/Onc Treatment Hematology/Oncology Treatment, [address] [phone] Kourtney, Chair 2 Hem On[address] [address] Anemia due to chronic renal failure treated [...] of right lung 01/29/2022 Unspecified atherosclerosis of galena arteries of extremities, bilateral legs 12/27/2021 History [...] 02/12/2024 9:40 AM EST Laboratory Laboratory [facility] [place] [address] [place] [phone] Kourtney, Lab [address] [place] [address] 02/12/2024 10:15 AM EST Office Visit Hematology/Oncology [facility] [place] [address] [place] [phone] Lisa Lopez MD [address] [place] [address] 02/12/2024 11:00 AM EST Hem/Onc Treatment Hematology/Oncology Treatment, [place] [address] [place] [phone] Kourtney, Chair 6 Hem Onc [address]en[address] [facility] [place] [address] 03/04/2024 9:45 AM EST Pharmacy Pharmacy Hematology Oncology [place] [address] [place] [address] [facility], [facility] Hem/Onc [address] [place] [address] 03/23/2024 5:00 PM EST Office Visit Family Practice [address] [place] [address] Vidal Barba MD [address] [place] [address] Health Maintenance Due Date Last Done Comments [...] mL documented in this encounter Care Teams Service Technician Copier Relationship Specialty Start Date End Date Vidal Barba MD [address] [facility] [place] [address] PCP - General Family Medicine 01/02/24 documented as of this encounter
--- OUTSIDE RECORDS SUMMARY | 2024-02-11 06:39 | External Medical Summary | Summary of Care ---
Author Name Unknown Organization [facility] Address [address] [place] [address] Phone [phone] Care Team Providers Care Manufacturing Project Manager Name Role Phone Viadl Barba MD Primary Care Provider [phone] Reason for Visit * Reason Comments Chemotherapy C2D1 Keytruda/Carbop latin/Taxol * Episode Based Medications (Routine) - Authorized Specialty Diagnoses / Procedures Referred By Contac t Referred To Contact Diagnoses Squamous cell carcinoma of right lung (HCC) Non-small cell cancer of right lung (HCC) Encounter for antineoplastic chemotherapy CINV (chemotherapy-induced nausea and vomiting) Procedures IA CARBOPLATIN INJECTION IA FOSAPREPITANT INJECTION IA INJ PEMBROLIZUMAB IA PACLITAXEL INJECTION Lisa Lopez MD [address] [place] [address] Anc Hem/Onc [address] [address] Referral ID Status Reason Start Date Expiration Date V isits Requested Visits Authorized [id number] Authorized 11/22/2023 11/21/2024 999 [id number] Encounter Details Date Type Department Care Team (Latest Contact Info) Description 01/23/2024 11:00 AM EDT Hem/Onc Treatment Hematology/Oncolog y Treatment, [address] [address] Kourtney Chair 8 Hem Onc [address] [place] [address] Squamous cell carcinoma of right lung (HCC)*; Non-small cell cancer of right lung [...] as of this encounter (statuses as of 01/30/2024) Medications Medication Sig Dispensed Refills Start Date End Date Status ONETOUCH ULTRA BLUE STRPIndications:DM type 2, goal A1c below 7 Test sugar once daily and for hypo/hyperglycemic events 100 Strip 5 07/17/2012 Active Melatonin 5 MG Oral Tablet Chewable Take by mouth. Activ e Albuterol Sulfate (2.5 MG/3ML) 0.083% Inhalation Nebulization Solution (Proventil)Indicatio ns:Reactive airway disease, mild intermittent, uncomplicated Inhale via nebulizer 1 Vial every 4 hours as needed for Wheezing. 3 mL 3 07/05/2021 Active Additional Information Patient not taking.Reported on 10/30/2023 Propranolol HCl ER 60 MG Oral Capsule Extended Release 24 Hour (Inderal LA) Take 1 Capsule by mouth in the morning. 12/27/2021 Active Losartan Potassium 100 MG Oral Tablet (Cozaar) Take 1 Tablet by mouth in the morning. Active Acetaminophen 500 MG Oral Tablet Take 1 Tablet by mouth every 6 hours as needed. Active Albuterol Sulfate HFA 108 (90 Base) MCG/ACT Inhalation Aerosol SolutionIndications: COPD, group B, by GOLD 2017 classification ([facility]) Inhale 2 Puffs by mouth 4 times a day as needed for Wheezing. 18 g 4 08/16/2022 Active Additional Information Patient not taking.Reported on 10/30/2023 Budeson-Glycopyrrol- Formoterol 160-9-4.8 MCG/ACT Inhalation AerosolIndications:C OPD, group B, by GOLD 2017 classification (HCC) Inhale 2 Puffs by mouth daily. Breztri inhaler 10.7 g 11 01/28/2023 Active Farxiga 5 MG Oral Tablet Take 1 Tablet by mouth in the morning. Active Aspirin 81 MG Oral Tablet Delayed Release (Aspirin 81) Take 1 Tablet by mouth in the morning. Active Omeprazole 20 MG Oral Capsule Delayed Release (PriLOSEC) Take 1 Capsule by mouth in the morning. Active amLODIPine Besylate 5 MG Oral Tablet (Norvasc)Indications :Lightheadedness,Ess ential hypertension with goal blood pressure less than 140/90 Take 0.5 Tablets by mouth daily. 45 Tablet 06/24/2023 Active buPROPion HCl ER (XL) 150 MG Oral Tablet Extended Release 24 Hour (Wellbutrin XL)Indications:MDD (major depressive disorder), recurrent episode, moderate (HCC) Take 1 Tablet by mouth in the morning. 90 Tablet 3 06/24/2023 Active Rosuvastatin Calcium 10 MG Oral Tablet (Crestor) TAKE 1 TABLET EVERY MORNING 90 Tablet 3 06/28/2023 Active Venlafaxine HCl ER 150 MG Oral Capsule Extended Release 24 Hour (Effexor XR)Indications:Dysli pidemia, goal LDL below 70 TAKE 1 CAPSULE EVERY MORNING 90 Capsule 1 09/17/2023 Active traZODone HCl 100 MG Oral Tablet (Desyrel)Indications :Persistent insomnia Take 1 Tablet by mouth in the morning. 90 Tablet 3 09/17/2023 Active Lansoprazole 15 MG Oral Capsule Delayed Release Take 1 Capsule by mouth in the morning. Active Ondansetron HCl 8 MG Oral Tablet (Zofran)Indications: Squamous cell carcinoma of right lung (HCC) Take 1 Tablet by mouth every 8 hours as needed for Nausea. 30 Tablet 2 11/28/2023 Active Prochlorperazine Maleate 10 MG Oral Tablet (Compazine)Indicatio ns:Squamous cell carcinoma of right lung (HCC) Take 1 Tablet by mouth every 6 hours as needed for Nausea. 30 Tablet 2 11/28/2023 Active dexAMETHasone 4 MG Oral Tablet (Decadron)Indication s:Squamous cell carcinoma of right lung (HCC) Take 20mg (5 tablets) the night before and morning of each chemotherapy appointment 60 Tablet 11/28/2023 Active Lidocaine-Prilocaine 2.5-2.5 % External Cream (Emla)Indications:Sq uamous cell carcinoma of right lung (HCC) APPLY TO SKIN OVER MEDIPORT & COVER 1HR PRIOR TO ACCESSING. 30 g 11/29/2023 Active Osimertinib Mesylate 40 MG Oral Tablet (Tagrisso)Indication s:Non-small cell cancer of right lung (HCC) Take 40 mg by mouth in the morning. Take medication about same time every day, with or without food.. 30 Tablet 5 01/08/2024 Active documented as of this encounter (statuses as of 01/30/2024) Active Problems Problem Noted Date Diagnosed Date [...] of right lung 01/29/2022 Unspecified atherosclerosis of belk[place] arteries of extremities, bilateral legs 12/27/2021 History of hysterectomy 12/27/2021 Gastroesophageal reflux disease 12/27/2021 Dilatation of aorta 12/27/2021 Idiopathic peripheral autonomic neuropathy 12/27 Intermittent claudication of both lower extremities due to atherosclerosis 12/27/2021 Occlusion and stenosis of bilateral carotid bebeto ayala 12/27/2021 AAA (abdominal aortic aneurysm) 12/12/2021 Overview: 3.6 cm AAA noted on PET CT 11/07/21 Mass of right lung 07/24/2021 Overview: Ground-glass masslike density in the right upper lobe. Two nodules noted in the right lower lobe. Primary osteoarthritis of right shoulder 021 COPD, group B, by GOLD 2017 classification 11/01 Overview: Per COPD GOLD Classification PVD (peripheral vascular disease) 10/09/2019 S/P arterial stent 10/09/2019 Overview: Left leg 08/11 History of colonic polyps 01/21/2019 Overview: Overview Signed 10/29/2018 12:46 PM by Addy Leblanc MD Three tubular adenomas removed during colonoscopy 11/10. 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 Removed 01/28/19. Chronic fatigue [...] as of this encounter (statuses as of 01/30/2024) Resolved Problems Problem Noted Date Diagnosed Date Resolved Date Chronic kidney disease, stage 3b 02/04/2023 08/07/2023 Overview: Per CKD protocol Chronic kidney disease, stage 3a 12/31/2022 02/07/2023 Overview: Per CKD protocol Encounter for long-term (cur rent) use of medications 10/09/2019 12/27/2021 Overview: Metformin Tubular adenoma of colon 10/29/2018 Overview: Three tubular adenomas removed during colonoscopy 11/10. Hx Z86.010 Status post total replacement of right hip 03/21/2018 03/21/2018 Moderate persistent asthma w ithout complication 01/15/2018 07/25/2018 Primary osteoarthritis of right hip 01/15/2018 03/21/2018 Grief reaction 01/15/2018 03/21/2018 Moderate persistent asthma w ithout complication 10/16/2017 01/15/2018 COPD, moderate 10/16/2017 11/05/2019 Overview: Per COPD GOLD Classification Bruised ribs, left, sequela 01/15/2017 04/18/2017 Overview: Fall 12/29/16 Contusion of lesser toe of l eft foot with damage to nail 03/01/2016 07/04/2016 Overview: Left second toe injury 01/07/16. Recurrent major depressive d isorder, in full remission 07/18/2015 07/18/2015 Mild intermittent asthma without complication 07/18/19 16 10/16/2017 Asthma exacerbation 07/04/2015 08/19/19 16 Stress reaction 01/21/2015 01/15/2017 Hypertension goal BP (blood pressure) < 140/90 12/28/2014 07/18/2015 Primary osteoarthritis invol ving multiple joints 12/28/2014 09/13/2016 Cutaneous horn 08/27/2014 07/18/2015 Overview: Right trunk - Removed 08/27/14 ACEI/ARB contraindicated 07/01/201308/2014 Overview: renal insuffiency and hyperkalemia IBS (irritable bowel syndrome) 03/19/2013 01/28/2019 Candidal vulvovaginitis 01/19/2013 1207/2013 Dyslipidemia, goal LDL below 100 11/13/2012 07/04/2015 Osteoarthritis 10/13/2012 12/28/2014 Depression 10/13/2012 07/18/2015 Overweight (BMI 25.0-29.9) 10/13/2012 1 Shingles 10/13/2012 01/06/2014 Overview: Right chest wall Osteoarthritis of hip 12/13/20112012 High triglycerides 05/17/2011 3 HYPERPOTASSEMIA-06/02, 0N LISINOPRIL 06/23/2010 06/23/2010 HYPERPOTASSEMIA-on lisinopril 06/0206/16/2010 10/13/2012 Kidney disease, chronic, sta ge III (GFR 30-59 ml/min) 06/16/2010 04/26/2011 Cervical intraepithelial neoplasia grade 2 06/09/2010 10/13/2012 Overview: GODFREY-BSO 02/26/11-BENIGN KNEE JOINT REPLACEMENT-LEFT 01/3106/09/2010 10/13/2012 Dyslipidemia, goal LDL below 100 03/20/2010 10/13/2012 Tobacco use disorder 12/20/2009 013 Obesity, Class I, BMI 30.0-3 4.9 (see actual BMI) 09/15/2009 10/13/2012 Ankle joint pain 02/12/2011 Carpal tunnel syndrome 01/15 Major depressive disorder Overview: ICD-10 update of inactive term Anxiety state 10/13/2012 Type 2 diabetes mellitus wit h hemoglobin A1c goal of less than 7.0% 10/13/2012 Overview: ICD-10 update of inactive term Dyslipidemia, goal LDL below 70 03/20/2010 Sciatica 10/13/2012 DIVERTICULITIS OF COLON-RECURRENT 01/15/2017 Female stress incontinence 0 10/13/2012 Menopause 02/12/2011 Obesity, BMI not known 02/12 MIGRAINE, NOS 07/18/2015 Hypertension goal BP (blood pressure) < 140/80 12/28/2014 History of tobacco use 02/12 documented as of this encounter (statuses as of 01/30/2024) Immunizations Name Administration Dates Next Due COVID-19 [...] years and over) Not on file 09/10/2023 Sex and Gender Information Value Date Recorded Sex Assigned at Not on file Gender Identity Not on file Sexual Orientation Not on file Job Start Date Occupation Industry Not on file Not on file Not on file documented as of this encounter Last Filed Vital Signs Vital Sign Reading Time Taken Comments Blood Pressure 115/64 01/23/2024 11:05 AM EDT Pulse 96 01/23/2024 11:05 AM EDT Temperature 36.6 C (97.9 F) 01/23/2024 11:05 AM E DT Respiratory Rate 16 01/23/2024 11:05 AM EDT Oxygen Saturation 94% 01/23/2024 11:05 AM EDT Inhaled Oxygen Concentration - - Weight - - Height - - Body Mass Index - - documented in this encounter Nursing Notes * Maddi Pak RN - 01/23/2024 4:25 PM EDT Infusion complete. Patient tolerated well. VAD with + blood return, flushed with 10 ml NSS and Heparin 5 ml (100 units/ml). Khan needle removed intact. Dry dressing applied. Goals: Patient will remain free from injury. Possible barriers to meeting goals: ambulated with IV pump/IV pole. Ambulates with walker Stability of the patient: Moderately stable - low risk of patient condition declining or worsening Summary regarding today's goals: Met: Patient remained free from harm/injury during treatment. Patient left facility in stable condition. * Tiffany Cohen RN - 01/23/2024 12:33 PM EDT Chair 11 Pt here for C2D1 Keytruda, Carboplatin, & Taxol. No complaints. Seen yesterday by Dr. Lopez. See office visit note. Chemotherapy/Immunotherapy agents: CARBOPLATIN, KEYTRUDA, and TAXOL Consent for chemotherapy drug treatment complete, dated, and signed? yes, date - 11/26/ Treatment lab parameters met? Yes Has treatment weight changed > than 10%? No Treatment preauthorized? Yes VITALS Filed Vitals: 01/23/24 1105 BP: 115/64 Pulse: 96 Resp: 16 Temp: 36.6 C (97.9 F) TempSrc: Tympanic SpO2: 94% Urine protein: N/A Patient education completed for treatment? Yes Blood transfusion consent signed and complete? NA Return appointment scheduled? Yes Patient had provider visit today? Yes - Ok to release order and treat per provider - seen by Dr. Lopez yesterday Functional Status: Functional status at today's visit: Restricted in physically strenuous activity but ambulatory and able to carry out work on a light orsedentary nature, e.g. light house work, office work The drug name, dose, infusion volume, rate [...] potential rainey while using the heat function. Safety and Risk for Injury Patient will remain free from injury. Ensure appropriate safety devices are available. Provide and maintain safe environment. documented in this encounter Plan of Treatment Upcoming Encounters Date Type Department Care Team (Late st Contact Info) Description 02/12/2024 9:40 AM EST Laboratory Laboratory [facility] [place] [address] [place] [phone] [place], Lab [facility] [address] [place] [address] 02/12/2024 10:15 AM EST Office Visit Hematology/Oncology [facility], [place] [address] [place], [place] [phone] Lisa Lopez MD [address] [place], [place] [address] 02/12/2024 11:00 AM EST Hem/Onc Treatment Hematology/Oncology Treatment, [place] [address] [facility] [address] [place], [place] [phone] Kourtney, Chair 6 Hem Onc [facility] [address] [facility] [place], [place] [address] 03/04/2024 9:45 AM EST Pharmacy Pharmacy Hematology Oncology [address] [address] [facility], [facility] Hem/Onc [facility] [place] [address] 03/23/2024 5:00 PM EST Office Visit Family Practice [address] [place] [address] Vidal Barba MD [address] [place] [address] Health Maintenance Due Date Last Done Comments [...] as of this encounter Visit Diagnoses Diagnosis Squamous cell carcinoma of right lung (HCC)- Primary Non-small cell cancer of right lung (HCC) Encounter for antineoplastic chemotherapy CINV (chemotherapy-induced nausea and vomiting) Nausea with vomiting documented in this encounter Administered Medications Inactive Administered Medications - up to 3 most recent administrations Medication Order MAR Action Action Date Dose Rate Site CARBOplatin (Paraplatin) 280 mg in D5W 250 mL infusion 280 mg (rounded from 279.48 mg, Target AUC = 5.1), IV Piggyback, at 510 mL/hr Administer over 30 Minutes, PROTECT FROM LIGHT (Max Creatinine Clearance at 125 ml/min for calculating AUC dose), ONCE, 1 dose, On Staci 01/23/24 at 1615 Start Infusion 01/23/2024 3:43 PM EDT 280 mg 510 mL/hr diphenhydrAMINE (Benadryl) cap 50 mg 50 mg, Oral, ONCE, On Staci 01/23/24 at 1215, For 1 dose Given 01/23/2024 11:24 AM EDT 50 mg Famotidine (Pepcid) tab 20 mg 20 mg, Oral, ONCE, On Staci 01/23/24 at 1215, For 1 dose Given 01/23/2024 11:25 AM EDT 20 mg Fosaprepitant Dimeglumine (Emend) 150 mg, ondansetron (Zofran) 16 mg, dexamethasone sodium phosphate 12 mg in NSS 250 mL Infusion 150 mg, IV Piggyback, ONCE, 1 dose, On Staci 01/23/24 at 1215, Administer over 30 Minutes, Infuse over 30 minutes. Give 30 minutes prior to chemotherapy. Start Infusion 01/23/2024 11:20 AM EDT 150 mg 538.4 mL/hr hEParin 100 UNIT/ML Lock Flush inj 500 Units 500 Units (5 mL), IV Lock, PRN Other, IV Flush, Starting on Staci 10/31/24 at 1105, Until Staci 01/23/24 at 2108, For 24 hours, Do not flush if lock, PICC, or central line not in place; IV infusing or unable to flush. Given 01/23/2024 4:16 PM EDT 500 Units NSS infusion Intravenous, at 50 mL/hr, PRN, Starting on Staci 01/23/24 at 1215, Until Staci 01/23/24 at 2108, Maintenance line Start Infusion 01/23/2024 11:19 AM EDT 50 mL/hr PACLitaxel (Taxol) 279 mg in NSS 500 mL infusion 279 mg (rounded from 278.8 mg = 170 mg/m2 1.64 m2 Treatment Plan BSA from Recorded weight), IV Piggyback, ONCE, 1 dose, On Staci 01/23/24 at 1315, Administer over 180 Minutes, Administer through 0.22 micron low protein binding filter! Start Infusion 01/23/2024 12:39 PM EDT 279 mg 170 mL/hr Pembrolizumab (Keytruda) 200 mg in NSS 100 mL infusion 200 mg, IV Piggyback, ONCE, 1 dose, On Staci 01/23/24 at 1245, Administer over 30 Minutes, Infuse through 0.2 micron filter. Start Infusion 01/23/2024 11:58 AM EDT 200 mg 226 mL/hr sodium chloride 0.9 % flush central line 10 mL 10 mL, IV Push, PRN Other, IV Flush, Starting on Staci 01/23/24 at 1105, Until Staci 01/23/24 at 2108, For 24 hours, Do not flush if lock, PICC, or central line not in place; IV infusing or unable to flush. Given 01/23/2024 4:16 PM EDT 10 mL documented in this encounter Care Teams Manufacturing Project Manager Relationship Specialty Start Date End Date Vidal Barba MD [facility] [place] [address] PCP - General Family Medicine 01/02/24 documented as of this encounter
--- OUTSIDE RECORDS SUMMARY | 2024-02-11 06:40 | External Medical Summary | Summary of Care ---
Author Name Unknown Organization [facility] Address [address] [place] [address] Phone [phone] Care Team Providers Care Top Trimmer Name Role Phone Vidal Barba MD Primary Care Provider [phone] Reason for Visit * Reason Comments Chemotherapy [...] IA PACLITAXEL INJECTION Lisa Lopez MD 200 [facility] [place] [address] Anc Hem/Onc [address] [address] Referral ID Status Reason Start Date Expiration Date V isits Requested Visits Authorized [id number] Authorized 11/22/2023 11/21/2024 999 [id number] Encounter Details Date Type Department Care Team (Latest Contact Info) Description 01/23/2024 11:00 AM EDT Hem/Onc Treatment Hematology/Oncolog y Treatment, [address] [phone] Kourtney Chair 8 Hem Onc [address] [place] [address] Squamous cell carcinoma of right lung (HCC)*; [...] COPD, group B, by GOLD 2017 classification ([facility]) Inhale 2 Puffs by mouth 4 times [...] of right lung 01/29/2022 Unspecified atherosclerosis of [place] arteries of extremities, bilateral legs 12/27/2021 History [...] Description 02/12/2024 9:40 AM EST Laboratory Laboratory [facility] [place] [address] [place] [phone] [place], Lab [facility] [address] [place] [address] 02/12/2024 10:15 AM EST Office Visit Hematology/Oncology [facility], [place] [address] [place], [place] [phone] Lisa Lopez MD [address] [place], [place] [address] 02/12/2024 11:00 AM EST Hem/Onc Treatment Hematology/Oncology Treatment, [place] [address] [facility] [address] [place], [place] [phone] Kourtney, Chair 6 Hem Onc [facility] [address] [facility] [place], [place] [address] 03/04/2024 9:45 AM EST Pharmacy Pharmacy Hematology Oncology [address] [address] [facility], [facility] Hem/Onc [facility] [place] [address] 03/23/2024 5:00 PM EST Office [facility] [address] [place] [address] Vidal Barba MD [address] [place] [address] Health Maintenance Due Date Last Done Comments [...] mL documented in this encounter Care Teams Top Trimmer Relationship Specialty Start Date End Date Vidal Barba MD [facility] [place] [address] PCP - General Family Medicine 01/02/24 documented as of this encounter
--- OUTSIDE RECORDS SUMMARY | 2024-02-11 06:40 | External Medical Summary | Summary of Care ---
Author Name Unknown Organization [facility] Address [address] [place] [address] Phone [phone] Care Team Providers Care Marriage Therapist Name Role Phone Vidal Barba MD Primary Care Provider [phone] Reason for Visit * Reason Comments Chemotherapy C2D1 Keytruda/Carbop latin/Taxol * Episode Based Medications (Routine) - Authorized Specialty Diagnoses / Procedures Referred By Contac t Referred To Contact Diagnoses Squamous cell carcinoma of right lung (HCC) Non-small cell cancer of right lung (HCC) Encounter for antineoplastic chemotherapy CINV (chemotherapy-induced nausea and vomiting) Procedures [place] CARBOPLATIN INJECTION [place] FOSAPREPITANT INJECTION [place] INJ PEMBROLIZUMAB [place] PACLITAXEL INJECTION Lisa Lopez MD 200 [facility] [place] [address] Anc Hem/Onc [address] [address] Referral ID Status Reason Start Date Expiration Date V isits Requested Visits Authorized [id number] Authorized 11/22/2023 11/21/2024 999 999 Encounter Details Date Type Department Care Team (Latest Contact Info) Description 01/23/2024 11:00 AM EDT Hem/Onc Treatment Hematology/Oncolog y Treatment, [address] [address] Kourtney Chair 8 Hem Onc [address] [place] [address] Squamous cell carcinoma of right lung (HCC)*; [...] B, by GOLD 2017 classification ([facility]) Inhale 2 Puffs by mouth [...] of right lung 01/29/2022 Unspecified atherosclerosis of z[place] arteries of extremities, bilateral legs 12/27/2021 History [...] Description 02/12/2024 9:40 AM EST Laboratory Laboratory [facility] [place] [address] [place] [phone] [place], Lab [facility] [address] [place] [address] 02/12/2024 10:15 AM EST Office Visit Hematology/Oncology [facility], [place] [address] [place], [place] [address] Lisa Lopez MD [address] [place], [place] [address] 02/12/2024 11:00 AM EST Hem/Onc Treatment Hematology/Oncology Treatment, [place] [address] [facility] [address] [place], [place] [address] Kourtney, Chair 6 Hem Onc [facility] 200 [facility] [place], [place] [address] 03/04/2024 9:45 AM EST Pharmacy Pharmacy Hematology Oncology [address] [address] [facility] [place], [facility] Hem/Onc [facility] [place] [address] 03/23/2024 5:00 PM EST Office [facility] [address] [place] [address] [place] [address] Vidal Barba MD [address] [place] [address] Health Maintenance Due Date Last Done Comments [...] Starting on Staci 01/23/24 at 1105, Until Staic 01/23/24 at 2108, For 24 hours, Do not flush if lock, PICC, or central line not in place; IV infusing or unable to flush. Given 01/23/2024 4:16 PM EDT 10 mL documented in this encounter Care Teams Marriage Therapist Relationship Specialty Start Date End Date Vidal Barba MD [facility] [place] [address] PCP - General Family Medicine 01/02/24 documented as of this encounter
--- OUTSIDE RECORDS SUMMARY | 2024-02-11 06:40 | External Medical Summary | Summary of Care ---
Author Name Unknown Organization [facility] Address [address] [place] [address] Phone [phone] Care Team Providers Care Street Light Inspector Name Role Phone Vidal Barba MD Primary Care Provider [phone] Reason for Visit * Reason Comments Chemotherapy C2D1 Keytruda/Carbop latin/Taxol * Episode Based Medications (Routine) - Authorized Specialty Diagnoses / Procedures Referred By Contac t Referred To Contact Diagnoses Squamous cell carcinoma of right lung (HCC) Non-small cell cancer of right lung (HCC) Encounter for antineoplastic chemotherapy CINV (chemotherapy-induced nausea and vomiting) Procedures [place] CARBOPLATIN INJECTION [place] FOSAPREPITANT INJECTION [place] INJ PEMBROLIZUMAB [place] PACLITAXEL INJECTION Lisa Lopez MD 200 [facility] [place] [address] Anc Hem/Onc [address] [address] Referral ID Status Reason Start Date Expiration Date V isits Requested Visits Authorized [id number] Authorized 11/22/2023 11/21/2024 999 999 Encounter Details Date Type Department Care Team (Latest Contact Info) Description 01/23/2024 11:00 AM EDT Hem/Onc Treatment Hematology/Oncolog y Treatment, [address] [address] Kourtney Chair 8 Hem Onc [address] [place] [address] Squamous cell carcinoma of right lung (HCC)*; [...] group B, by GOLD 2017 classification ([facility]) Inhale 2 Puffs by mouth 4 times [...] of right lung 01/29/2022 Unspecified atherosclerosis of [place] arteries of extremities, bilateral legs 12/27/2021 History [...] chest wall. Removed 01/28/19. Chronic fatigue 03/01/2016 SOLTIARIO (generalized anxiety disorder) 11/22/2015 Irritable bowel syndrome [...] 02/12/2024 9:40 AM EST Laboratory Laboratory [facility] [place] [address] [place] [address] [place], Lab [facility] [address] [place] [address] 02/12/2024 10:15 AM EST Office Visit Hematology/Oncology [facility], [place] [address] [place], [place] [address] Lisa Lopez MD [address] [place], [place] [address] 02/12/2024 11:00 AM EST Hem/Onc Treatment Hematology/Oncology Treatment, [place] [address] [facility] [address] [place], [place] [address] Kourtney, Chair 6 Hem Onc [facility] 200 [facility] [place], [place] [address] 03/04/2024 9:45 AM EST Pharmacy Pharmacy Hematology Oncology [address] [address] [facility] [place] [facility], [facility] Hem/Onc [facility] [place] [address] 03/23/2024 5:00 PM EST Office [place] [facility] [address] [place] [address] Vidal Barba MD [address] [place] [address] Health Maintenance Due Date Last Done Comments [...] Starting on Staci 10/31/24 at 1105, Until Satci 01/23/24 at 2108, For 24 hours, Do [...] mL documented in this encounter Care Teams Street Light Inspector Relationship Specialty Start Date End Date Vidal Barba MD [facility]8 [facility] [place] [address] PCP - General Family Medicine 01/02/24 documented as of this encounter
--- OUTSIDE RECORDS SUMMARY | 2024-02-11 06:41 | External Medical Summary | Summary of Care ---
Author Name Unknown Organization [facility] Address [address] [place] [address] Phone [phone] Care Team Providers Care Cord Tire Builder Name Role Phone Vidal Barba MD Primary Care Provider [phone] Reason for Visit * Reason Comments Chemotherapy [...] [place] PACLITAXEL INJECTION Lisa Lopez MD 200 [facility] [place] [address] Anc Hem/Onc [address] [address] Referral ID Status Reason Start Date Expiration Date V isits Requested Visits Authorized [id number] Authorized 11/22/2023 11/21/2024 999 [id number] Encounter Details Date Type Department Care Team (Latest Contact Info) Description 01/23/2024 11:00 AM EDT Hem/Onc Treatment Hematology/Oncolog y Treatment, [address] [address] Kourtney Chair 8 Hem Onc [address] [place] [address] Squamous cell carcinoma of right lung (HCC)*; [...] group B, by GOLD 2017 classification ([facility]) Inhale 2 Puffs by mouth 4 times [...] of right lung 01/29/2022 Unspecified atherosclerosis of [place] arteries of extremities, bilateral legs 12/27/2021 History [...] Description 02/12/2024 9:40 AM EST Laboratory Laboratory [facility] [place] [address] [place] [address] [place], Lab [facility] [address] [place] [address] 02/12/2024 10:15 AM EST Office Visit Hematology/Oncology [facility], [place] [address] [place], [place] [address] Lisa Lopez MD [address] [place], [place] [address] 02/12/2024 11:00 AM EST Hem/Onc Treatment Hematology/Oncology Treatment, [place] [address] [facility] [address] [place], [place] [address] Kourtney, Chair 6 Hem Onc [facility] 200 [facility] [place], [place] [address] 03/04/2024 9:45 AM EST Pharmacy Pharmacy Hematology Oncology [address] [address] [facility] [place], [facility] Hem/Onc [facility] [place] [address] 03/23/2024 5:00 PM EST Office Visit [facility] [address] [place] [address] Vidal Barba MD [address] [place] [address] Health Maintenance Due Date Last Done Comments [...] mL documented in this encounter Care Teams Cord Tire Builder Relationship Specialty Start Date End Date Vidal Barba MD [facility]8 [facility] [place] [address] PCP - General Family Medicine 01/02/24 documented as of this encounter
--- OUTSIDE RECORDS SUMMARY | 2024-02-11 06:41 | External Medical Summary | Summary of Care ---
Author Name Unknown Organization [facility] Address [address] [place] [address] Phone [phone] Care Team Providers Care Drug Safety Data Management Specialist Name Role Phone Vidal Barba MD Primary Care Provider [phone] Reason for Visit * Reason Comments Chemotherapy C2D1 Keytruda/Carbop latin/Taxol * Episode Based Medications (Routine) - Authorized Specialty Diagnoses / Procedures Referred By Contac t Referred To Contact Diagnoses Squamous cell carcinoma of right lung (HCC) Non-small cell cancer of right lung (HCC) Encounter for antineoplastic chemotherapy CINV (chemotherapy-induced nausea and vomiting) Procedures [place] CARBOPLATIN INJECTION [place] FOSAPREPITANT INJECTION [place] INJ PEMBROLIZUMAB [place] PACLITAXEL INJECTION Lisa Lopez MD 200 [facility] [place] [address] Anc Hem/Onc [address] [address] Referral ID Status Reason Start Date Expiration Date V isits Requested Visits Authorized [id number] Authorized 11/22/2023 11/21/2024 999 999 Encounter Details Date Type Department Care Team (Latest Contact Info) Description 01/23/2024 11:00 AM EDT Hem/Onc Treatment Hematology/Oncolog y Treatment, [address] [address] Kourtney Chair 8 Hem Onc [address] [place] [address] Squamous cell carcinoma of right lung (HCC)*; [...] COPD, group B, by GOLD 2017 classification ([facility]) Inhale 2 Puffs by mouth 4 times [...] of right lung 01/29/2022 Unspecified atherosclerosis of [place] arteries of extremities, bilateral legs 12/27/2021 History [...] Description 02/12/2024 9:40 AM EST Laboratory Laboratory [facility] [place] [address] [place] [address] [place], Lab [facility] [address] [place] [address] 02/12/2024 10:15 AM EST Office Visit Hematology/Oncology [facility], [place] [address] [place], [place] [address] Lisa Lopez MD [address] [place], [place] [address] 02/12/2024 11:00 AM EST Hem/Onc Treatment Hematology/Oncology Treatment, [place] [address] [facility] [address] [place], [place] [address] Kourtney, Chair 6 Hem Onc [facility] 200 [facility] [place], [place] [address] 03/04/2024 9:45 AM EST Pharmacy Pharmacy Hematology Oncology [address] [address] [facility], [facility] Hem/Onc [facility] [place] [address] 03/23/2024 5:00 PM EST Office [facility] [address] [place] [address] Vidal Barba MD [address] [place] [address] Health Maintenance Due Date Last Done Comments [...] 20 mg 20 mg, Oral, ONCE, On Satci 01/23/24 at 1215, For 1 dose Given [...] mL documented in this encounter Care Teams Drug Safety Data Management Specialist Relationship Specialty Start Date End Date Vidal Barba MD [facility]8 [facility] [place] [address] PCP - General Family Medicine 01/02/24 documented as of this encounter
--- OUTSIDE RECORDS SUMMARY | 2024-02-11 06:41 | External Medical Summary | Summary of Care ---
Author Name Unknown Organization [facility] Address [address] [place] [address] Phone [phone] Care Team Providers Care Sample Wrapper Name Role Phone Vidal Barba MD Primary Care Provider [phone] Reason for Visit * Reason Comments Chemotherapy [...] [place] PACLITAXEL INJECTION Lisa Lopez MD 200 [place] [address] Anc Hem/Onc [address] [address] Referral ID Status Reason Start Date Expiration Date V isits Requested Visits Authorized [id number] Authorized 11/22/2023 11/21/2024 999 999 Encounter Details Date Type Department Care Team (Latest Contact Info) Description 01/23/2024 11:00 AM EDT Hem/Onc Treatment Hematology/Oncolog y Treatment, [address] [address] Kourtney Chair 8 Hem Onc [address] [place] [address] Squamous cell carcinoma of right lung (HCC)*; [...] COPD, group B, by GOLD 2017 classification ([facility]) Inhale 2 Puffs by mouth 4 times [...] of right lung 01/29/2022 Unspecified atherosclerosis of [place] arteries of extremities, bilateral legs 12/27/2021 History [...] Description 02/12/2024 9:40 AM EST Laboratory Laboratory [facility] [place] [address] [place] [address] [place], Lab [facility] [address] [place] [address] 02/12/2024 10:15 AM EST Office Visit Hematology/Oncology [facility], [place] [address] [place], [place] [address] Lisa Lopez MD [address] [place], [place] [address] 02/12/2024 11:00 AM EST Hem/Onc Treatment Hematology/Oncology Treatment, [place] [address] [facility] [address] [place], [place] [address] Kourtney, Chair 6 Hem Onc [facility] 200 [facility] [place], [place] [address] 03/04/2024 9:45 AM EST Pharmacy Pharmacy Hematology Oncology [address] [address] [facility] [place] [facility], [facility] Hem/Onc [place] [address] 03/23/2024 5:00 PM EST Office [place] [facility] [address] [place] [address] Vidal Barba MD [address] [place] [address] Health Maintenance Due Date Last Done Comments [...] mL documented in this encounter Care Teams Sample Wrapper Relationship Specialty Start Date End Date Vidal Barba MD [facility]8 [facility] [place] [address] PCP - General Family Medicine 01/02/24 documented as of this encounter
--- OUTSIDE RECORDS SUMMARY | 2024-02-11 06:41 | External Medical Summary | Summary of Care ---
Author Name Unknown Organization [facility] Address [address] [place] [address] Phone [phone] Care Team Providers Care Oyster Grower Name Role Phone Vidal Barba MD Primary Care Provider [phone] Reason for Visit * Reason Comments IV Therapy Venofer Encounter Details Date Type Department Care Team (Latest Contact Info) Description 01/22/2024 10:30 AM EDT Hem/Onc Treatment Hematology/Oncology Treatment, [address] [address] Kourtney Chair 4 Hem On[address] [address] Anemia due to chronic renal failure treated [...] as of this encounter (statuses as of 01/29/2024) Medications Medication Sig Dispensed Refills Start Date [...] COPD, group B, by GOLD 2017 classification ([facility]) Inhale 2 Puffs by mouth 4 times a day as needed for Wheezing. 18 g 4 08/16/2022 Active Additional Information Patient not taking.Reported on 10/30/2023 Budeson-Glycopyrrol- Formoterol 160-9-4.8 MCG/ACT Inhalation AerosolIndications:C OPD, group B, by GOLD 2017 classification ([facility]) Inhale 2 Puffs by mouth daily. Breztri [...] as of this encounter (statuses as of 01/29/2024) Active Problems Problem Noted Date Diagnosed Date [...] of right lung 01/29/2022 Unspecified atherosclerosis of [place] arteries of extremities, bilateral legs 12/27/2021 History [...] Primary osteoarthritis of left shoulder 11/04/19 19 Overview: Left griselda arthroplasty 11/10 DM type [...] as of this encounter (statuses as of 01/29/2024) Resolved Problems Problem Noted Date Diagnosed Date [...] as of this encounter (statuses as of 01/29/2024) Immunizations Name Administration Dates Next Due COVID-19 [...] on file documented as of this encounter Nursing Notes * Christi Villarreal RN - 01/22/2024 4:13 PM EDT Pt tolerated treatment without complications. Port flushed easily before de-access. Goals: Patient will remain free from injury. Possible barriers to meeting goals: ambulation with IV pole. Stability of the patient: Moderately stable - low risk of patient condition declining or worsening Summary regarding today's goals: Met: Patient remained free from injury. Pt tolerated treatment well. Discharged in stable condition. * Christi Villarreal RN - 01/22/2024 4:08 PM EDT Chair 2 Pt here to receive Venofer infusion. Pt has no concerns about treatment today; scheduled for chemotherapy treatment tomorrow. Port accessed for today's infusion without difficulty; positive blood return observed. Port de-accessed after today's treatment. Safety and Risk for Injury Patient will [...] Description 02/12/2024 9:40 AM EST Laboratory Laboratory [facility] [address] [place] [address] [place], Lab [facility] 200 [facility] [place] [address] 02/12/2024 10:15 AM EST Office Visit Hematology/Oncology [facility] [place] [address] [place] [address] Lisa Lopez MD [address] [place] [address] 02/12/2024 11:00 AM EST Hem/Onc Treatment Hematology/Oncology Treatment, [place] [address] [place] [address] Kourtney, Chair 6 Hem Onc [address] [place] [address] 03/04/2024 9:45 AM EST Pharmacy Pharmacy Hematology Oncology [facility] [address] [place] [address] [facility] Hem/Onc [address] [place] [address] 03/23/2024 5:00 PM EST Office Visit Family Practice [place] [address] [place] [address] Vidal Barba MD [address] [place] [address] Health Maintenance Due Date Last Done Comments [...] Lock, PRN Other, IV Flush, Starting on Sat01/22/24 at 1037, Until Sat01/22/24 at 2104, For 24 hours, Do not flush if lock, PICC, or central line not in place; IV infusing or unable to flush. Given 01/22/2024 12:55 PM EDT 500 Units Iron Sucrose (Venofer) 300 mg in NSS 250 mL ivpb 300 mg, IV Piggyback, ONCE, 1 dose, On Sat01/22/24 at 1215, Administer over 90 Minutes Start Infusion 01/22/2024 11:06 AM EDT 300 mg 180 mL/hr NSS infusion 500 mL, Intravenous, at 50 mL/hr, CONTINUOUS, Starting on Sat01/22/24 at 1145, Until Sat01/22/24 at 2104 Start Infusion 01/22/2024 11:02 AM EDT 500 mL 50 mL/hr sodium chloride 0.9 % flush central line 10 mL 10 mL, IV Push, PRN Other, IV Flush, Starting on Sat01/22/24 at 1037, Until Sat01/22/24 at 2104, For 24 hours, Do not flush if lock, PICC, or central line not in place; IV infusing or unable to flush. Given 01/22/2024 12:55 PM EDT 10 mL documented in this encounter Care Teams Oyster Grower Relationship Specialty Start Date End Date Vidal Barba MD [address] [facility] [place] [address] PCP - General Family Medicine 01/02/24 documented as of this encounter
--- OUTSIDE RECORDS SUMMARY | 2024-02-11 06:41 | External Medical Summary | Summary of Care ---
Author Name Unknown Organization [facility] Address [address] [place] [address] Phone [phone] Care Team Providers Care Mathematical Physicist Name Role Phone Vidal Barba MD Primary Care Provider [phone] Reason for Visit * Reason Comments IV Therapy Venofer Encounter Details Date Type Department Care Team (Latest Contact Info) Description 01/22/2024 10:30 AM EDT Hem/Onc Treatment Hematology/Oncology Treatment, [address] [address] Kourtney Chair 4 Hem On[address] [address] Anemia due to chronic renal failure treated [...] by GOLD 2017 classification ([facility]) Inhale 2 Puffs by mouth 4 times a day as needed for Wheezing. 18 g 4 08/16/2022 Active Additional Information Patient not taking.Reported on 10/30/2023 Budeson-Glycopyrrol- Formoterol 160-9-4.8 MCG/ACT Inhalation AerosolIndications:C OPD, group B, by GOLD 2017 classification ([facility]) Inhale 2 Puffs by mouth daily. Breztri [...] of right lung 01/29/2022 Unspecified atherosclerosis of [place] arteries of extremities, bilateral legs 12/27/2021 History [...] Description 02/12/2024 9:40 AM EST Laboratory Laboratory [facility] [address] [place] [address] [place], Lab [facility] 200 [facility] [place] [address] 02/12/2024 10:15 AM EST Office Visit Hematology/Oncology [facility] [place] [address] [place] [address] Lisa Lopez MD [address] [place] [address] 02/12/2024 11:00 AM EST Hem/Onc Treatment Hematology/Oncology Treatment, [place] [address] [place] [address] Kourtney, Chair 6 Hem Onc [address] [place] [address] 03/04/2024 9:45 AM EST Pharmacy Pharmacy Hematology Oncology [facility] [address] [place] [address] [facility], [facility] Hem/Onc [address] [place] [address] 03/23/2024 5:00 PM EST Office Visit Family Practice [place] Sharita Nolan [address] [place] [address] Vidal Barba MD [address] [place] [address] Health Maintenance Due Date Last Done Comments [...] mL documented in this encounter Care Teams Mathematical Physicist Relationship Specialty Start Date End Date Vidal Barba MD [address] [facility] [place] [address] PCP - General Family Medicine 01/02/24 documented as of this encounter
--- OUTSIDE RECORDS SUMMARY | 2024-02-11 06:41 | External Medical Summary | Summary of Care ---
Author Name Unknown Organization [facility] Address [address] [place] [address] Phone [phone] Care Team Providers Care Leather Softener Name Role Phone Vidal Barba MD Primary Care Provider [phone] Reason for Visit * Reason Comments Chemotherapy C2D1 Keytruda/Carbop latin/Taxol * Episode Based Medications (Routine) - Authorized Specialty Diagnoses / Procedures Referred By Contac t Referred To Contact Diagnoses Squamous cell carcinoma of right lung (HCC) Non-small cell cancer of right lung (HCC) Encounter for antineoplastic chemotherapy CINV (chemotherapy-induced nausea and vomiting) Procedures ME CARBOPLATIN INJECTION ME FOSAPREPITANT INJECTION ME INJ PEMBROLIZUMAB ME PACLITAXEL INJECTION Lisa Lopez MD 200 [facility] [place] [address] Anc Hem/Onc [address] [address] Referral ID Status Reason Start Date Expiration Date V isits Requested Visits Authorized [id number] Authorized 11/22/2023 11/21/2024 999 999 Encounter Details Date Type Department Care Team (Latest Contact Info) Description 01/23/2024 11:00 AM EDT Hem/Onc Treatment Hematology/Oncolog y Treatment, [address] [address] Kourtney Chair 8 Hem Onc [address] [place] [address] Squamous cell carcinoma of right lung (HCC)*; [...] COPD, group B, by GOLD 2017 classification ([facility]) Inhale 2 Puffs by mouth [...] of right lung 01/29/2022 Unspecified atherosclerosis of [place] arteries of extremities, bilateral legs 12/27/2021 History [...] 02/12/2024 9:40 AM EST Laboratory Laboratory [facility] [place] [address] [place] [phone] [place], Lab [facility] [address] [place] [address] 02/12/2024 10:15 AM EST Office Visit Hematology/Oncology [facility], [place] [address] [place], [place] [address] Lisa Lopez MD [address] [place], [place] [address] 02/12/2024 11:00 AM EST Hem/Onc Treatment Hematology/Oncology Treatment, [place] [address] [facility] [address] [place], [place] [address] Kourtney, Chair 6 Hem Onc [facility] 200 [facility] [place], [place] [address] 03/04/2024 9:45 AM EST Pharmacy Pharmacy Hematology Oncology [address] [address] [facility], [facility] Hem/Onc [facility] [place] [address] 03/23/2024 5:00 PM EST Office Visit Family Practice [address] [place] [address] Vidal Barba MD [address] [place] [address] Health Maintenance Due Date Last Done Comments [...] mL documented in this encounter Care Teams Leather Softener Relationship Specialty Start Date End Date Vidal Barba MD [facility]8 [facility] [place] [address] PCP - General Family Medicine 01/02/24 documented as of this encounter
--- OUTSIDE RECORDS SUMMARY | 2024-02-11 06:41 | External Medical Summary | Summary of Care ---
Author Name Unknown Organization [facility] Address [address] [place] [address] Phone [phone] Care Team Providers Care Lens Grinding Machine Operator Name Role Phone Vidal Barba MD Primary Care Provider [phone] Reason for Visit * Reason Comments Chemotherapy C2D1 Keytruda/Carbop latin/Taxol * Episode Based Medications (Routine) - Authorized Specialty Diagnoses / Procedures Referred By Contac t Referred To Contact Diagnoses Squamous cell carcinoma of right lung (HCC) Non-small cell cancer of right lung (HCC) Encounter for antineoplastic chemotherapy CINV (chemotherapy-induced nausea and vomiting) Procedures CA CARBOPLATIN INJECTION CA FOSAPREPITANT INJECTION CA INJ PEMBROLIZUMAB CA PACLITAXEL INJECTION Lisa Lopez MD [address] [facility] [place] [address] Anc Hem/Onc [address] [address] Referral ID Status Reason Start Date Expiration Date V isits Requested Visits Authorized [id number] Authorized 11/22/2023 11/21/2024 999 999 Encounter Details Date Type Department Care Team (Latest Contact Info) Description 01/23/2024 11:00 AM EDT Hem/Onc Treatment Hematology/Oncolog y Treatment, [address] [address] Kourtney Chair 8 Hem Onc [address] [place] [address] Squamous cell carcinoma of right lung (HCC)*; [...] as of this encounter (statuses as of 01/23/2024) Medications Medication Sig Dispensed Refills Start Date [...] group B, by GOLD 2017 classification ([facility]) Inhale 2 Puffs by mouth 4 [...] as of this encounter (statuses as of 01/23/2024) Active Problems Problem Noted Date Diagnosed Date [...] of right lung 01/29/2022 Unspecified atherosclerosis of [place] arteries of extremities, bilateral legs 12/27/2021 History [...] as of this encounter (statuses as of 01/23/2024) Resolved Problems Problem Noted Date Diagnosed Date [...] as of this encounter (statuses as of 01/23/2024) Immunizations Name Administration Dates Next Due COVID-19 [...] Description 02/12/2024 9:40 AM EST Laboratory Laboratory [facility] [place] [address] [place] [phone] [place], Lab [facility] [address] [place] [address] 02/12/2024 10:15 AM EST Office Visit Hematology/Oncology [facility], [place] [address] [place], [place] [address] iLsa Lopez MD [address] [place] [address] 02/12/2024 11:00 AM EST Hem/Onc Treatment Hematology/Oncology Treatment, [place] [address] [facility] [address] [place], [place] [address] Kourtney, Chair [address] On[address] [facility] [address] [facility] [place], [place] [address] 03/04/2024 9:45 AM EST Pharmacy Pharmacy Hematology Oncology [address] [address] [facility], [facility] Hem/Onc [address] [place] [address] 03/23/2024 5:00 PM EST Office Visit Family Practice [address] [place] [address] Vidal Barba MD [address] [place] [address] Health Maintenance Due Date Last Done Comments Alpha-1 Antitrypsin 1968 Cologuard 11/05/1995 Sigmoidoscopy 11/05/1995 Fecal Occult Blood Test 12/16/2012 12/17/2011 DISCUSS TOBACCO CESSATION (REFER TO SMARTSET #3291) 12/29/2015 12/28/2014 (Discussed) Hepatitis B Vaccine (2 of 3 - 19+ 3-dose series) 08/01/2016 07/04/2016 Diabetic Eye Exam 05/12/2019 05/12/2018, , 03/16/2016, Additional history exists Zoster Vaccines (2 of 2) 12/04/2019 10/09/2019, 09/22 COVID-19 Vaccine (3 - Moderna risk series) 04/06/2021 03/09/2021, 09/10/2020, 08/15/2020 Adult Wellness Visit 07/11/2021 07/11/2020 Diabetic Foot Exam 07/11/2021 07/11/2020, 0 10/09/2019, 11/03/2018, Additional history exists Depression Monitoring 10/18/2021 10/18/2020 DTap/Tdap Vaccines (2 - Td or Tdap) 01/29/2023 01/29/2013, 10/28/2006 Nephrology Referral 08/14/2023 08/13/2022 HbA1c 07/13/2024 01/13/2024, 08/23, 07/04/2023, Additional history [...] ASSESSMENT COMPLETED IN PAST YEAR FOR COPD 01/21/2025 01/22/2024 Colonoscopy 10/21/2028 10/21/2018, 04/03/2011 Colorectal Cancer Screening [...] vomiting documented in this encounter Administered Medications Active Administered Medications - up to 3 most recent administrations Medication Order MAR Action Action Date Dose Rate Site diphenhydrAMINE (Benadryl) inj 50 mg 50 mg, IV Push, ONCE PRN Other, Hypersensitivity Reaction, Starting on Sat01/23/24 at 1105, Until Sat01/24/24 at 1104, For 24 hours EPINEPHrine 1 MG/ML inj 0.3 mg 0.3 mg, Intramuscular, ONCE PRN Other, Hypersensitivity Reaction or Anaphylaxis, Starting on Sat01/23/24 at 1105, Until Sat01/24/24 at 1104, For 24 hours hEParin 100 UNIT/ML Lock Flush inj 500 Units 500 Units (5 mL), IV Lock, PRN Other, IV Flush, Starting on Staci 01/23/24 at 1105, Until Sat01/24/24 at 1104, For 24 hours, Do not flush if lock, PICC, or central line not in place; IV infusing or unable to flush. Given 01/23/2024 4:16 PM EDT 500 Units Hydrocortisone Sod Suc (PF) (Solu-Cortef) inj 100 mg 100 mg, IV Push, ONCE PRN Other, Hypersensitivity Reaction, Starting on Staci 01/23/24 at 1105, Until Sat01/24/24 at 1104, For 24 hours LORAzepam (Ativan) tab 0.5 mg 0.5 mg, Oral, ONCE PRN Anxiety, Nausea, Starting on Staci 01/23/24 at 1215, Until Discontinued NSS infusion Intravenous, at 50 mL/hr, PRN, Starting on Staci 01/23/24 at 1215, Until Discontinued, Maintenance line Start Infusion 01/23/2024 11:19 AM EDT 50 mL/hr oxygen GAS Inhalation, OXYGEN, First dose on Staci 01/23/24 at 1145, Until Discontinued, Device/Managed by: Low Flow Device, Goal SPO2 (%): 91-95, Starting Device: Nasal Cannula, Initial Flow Rate (LPM): 2, Lowest Support: Nasal Cannula: Flow 0-6 LPM. Titrate up/down by 1 LPM., Higher Support: Non-Rebreather (NRB) Mask: Minimum of 10 LPM. Titrate to maintain bag inflation., Titration Interval: Q2 minutes and as needed., Notify Provider: For sudden DECREASE in resting SPO2 to less than 85% and when escalating delivery device., Wean patient off Oxygen when the oxygen saturation is greater than or equal to 93% sodium chloride 0.9 % flush central line 10 mL 10 mL, IV Push, PRN Other, IV Flush, Starting on Staci 01/23/24 at 1105, Until Sat01/24/24 at 1104, For 24 hours, Do not flush if lock, PICC, or central line not in place; IV infusing or unable to flush. Given 01/23/2024 4:16 PM EDT 10 mL Inactive Administered Medications - up to 3 [...] 11:20 AM EDT 150 mg 538.4 mL/hr PACLitaxel (Taxol) 279 mg in NSS [...] 11:58 AM EDT 200 mg 226 mL/hr documented in this encounter Care Teams Lens Grinding Machine Operator Relationship Specialty Start Date End Date Vidal Barba MD [facility]8 [facility] [place] [phone] PCP - General Family Medicine 01/02/24 documented as of this encounter
--- OUTSIDE RECORDS SUMMARY | 2024-02-11 06:41 | External Medical Summary | Summary of Care ---
Author Name Unknown Organization [facility] Address [address] [place] [address] Phone [phone] Care Team Providers Care Reworker Name Role Phone Vidal Barba MD Primary Care Provider [phone] Reason for Visit * Reason Comments Chemotherapy C2D1 Keytruda/Carbop latin/Taxol * Episode Based Medications (Routine) - Authorized Specialty Diagnoses / Procedures Referred By Contac t Referred To Contact Diagnoses Squamous cell carcinoma of right lung (HCC) Non-small cell cancer of right lung (HCC) Encounter for antineoplastic chemotherapy CINV (chemotherapy-induced nausea and vomiting) Procedures MI CARBOPLATIN INJECTION MI FOSAPREPITANT INJECTION MI INJ PEMBROLIZUMAB MI PACLITAXEL INJECTION Lisa Lopez MD 200 [place] [address] Anc Hem/Onc [address] [address] Referral ID Status Reason Start Date Expiration Date V isits Requested Visits Authorized [id number] Authorized 11/22/2023 11/21/2024 999 999 Encounter Details Date Type Department Care Team (Latest Contact Info) Description 01/23/2024 11:00 AM EDT Hem/Onc Treatment Hematology/Oncolog y Treatment, [address] [address] Kourtney Chair 8 Hem Onc [address] [place] [address] Squamous cell carcinoma of right lung (HCC)*; [...] COPD, group B, by GOLD 2017 classification ([facility]) Inhale 2 Puffs by mouth [...] of right lung 01/29/2022 Unspecified atherosclerosis of [place] arteries of extremities, bilateral legs 12/27/2021 History [...] 02/12/2024 9:40 AM EST Laboratory Laboratory [facility] [place] [address] [place] [phone] [place], Lab [facility] [address] [place] [address] 02/12/2024 10:15 AM EST Office Visit Hematology/Oncology [facility], [place] [address] [place], [place] [address] Lisa Lopez MD [address] [place], [place] [address] 02/12/2024 11:00 AM EST Hem/Onc Treatment Hematology/Oncology Treatment, [place] [address] [facility] [place], [place] [address] Kourtney, Chair 6 Hem Onc [facility] [address] [facility] [place], [place] [address] 03/04/2024 9:45 AM EST Pharmacy Pharmacy Hematology Oncology [address] [address] [facility], [facility] Clinic Hem/Onc [facility] [place] [address] 03/23/2024 5:00 PM EST Office Visit [facility] [address] [place] [address] Vidal Barba MD [address] [place] [address] Health Maintenance Due Date Last Done Comments [...] mL documented in this encounter Care Teams Reworker Relationship Specialty Start Date End Date Vidal Barba MD [facility]8 [facility] [place] [address] PCP - General Family Medicine 01/02/24 documented as of this encounter
--- OUTSIDE RECORDS SUMMARY | 2024-02-11 06:42 | External Medical Summary | Summary of Care ---
Author Name Unknown Organization [facility] Address [address] [place] [address] Phone [phone] Care Team Providers Care Cloth Finishing Range Tender Name Role Phone Vidal Barba MD Primary Care Provider [phone] Reason for Visit * Reason Comments Outpatient Testing Encounter Details Date Type Department Care Team ([facility] st Contact Info) Description 01/23/2024 10:00 AM EDT Laboratory Laboratory [facility] [address] [place] [address] [place], Lab Scenery [address] [place] [address] Non-small cell cancer of right lung (HCC); Squamous cell carcinoma of right lung (HCC); Encounter for antineoplastic chemotherapy Allergies Active Allergy Reactions Criticality Noted Date [...] COPD, group B, by GOLD 2017 classification ([facility]) Inhale 2 Puffs by mouth 4 times a day as needed for Wheezing. 18 g 4 08/16/2022 Active Additional Information Patient not taking.Reported on 10/30/2023 Budeson-Glycopyrrol- Formoterol 160-9-4.8 MCG/ACT Inhalation AerosolIndications:C OPD, group B, by GOLD 2017 classification ([facility]) Inhale 2 Puffs by mouth daily. Breztri [...] of right lung 01/29/2022 Unspecified atherosclerosis of [place] arteries of extremities, bilateral legs 12/27/2021 History [...] on file documented as of this encounter Plan of Treatment Upcoming Encounters Date Type Department Care Team (Late st Contact Info) Description 02/12/2024 9:40 AM EST Laboratory Laboratory [facility] [place] [address] [place] [address] [place], Lab Scenery [address] [place], [place] [address] 02/12/2024 10:15 AM EST Office Visit Hematology/Oncology [address]ery Kourtney [place] [address] [place] [phone] Lisa Lopez MD [address] [place] [address] 02/12/2024 11:00 AM EST Hem/Onc Treatment Hematology/Oncology Treatment, [place] [address] [place], [place] [phone] Kourtney, Chair 6 Hem Onc [address] [place] [address] 03/04/2024 9:45 AM EST Pharmacy Pharmacy Hematology Oncology [facility] [address] [place] [address] [facility], [facility] Clinic Hem/Onc [address] [place] [address] 03/23/2024 5:00 PM EST Office Visit [facility][1] [address] [place] [address] Vidal Barba MD [address] [place] [address] Pending Results Name Type Priority Associated Diagnoses Date /Time COMPREHENSIVE METABOLIC PANEL Lab STAT Non-small cell cancer of right lung (HCC) Squamous cell carcinoma of right lung (HCC) Encounter for antineoplastic chemotherapy 01/23/2024 10:52 AM EDT Scheduled Orders Name Type Priority Associated Diagnoses Orde r Schedule CBC Lab STAT Non-small cell cancer of right lung (HCC) Squamous cell carcinoma of right lung (HCC) Encounter for antineoplastic chemotherapy Ordered: 01/23/2024 DIFFERENTIAL, AUTOMATED Lab STAT Non-small cell cancer of right lung (HCC) Squamous cell carcinoma of right lung (HCC) Encounter for antineoplastic chemotherapy Ordered: 01/23/2024 Health Maintenance Due Date Last Done Comments Alpha-1 Antitrypsin 1968 Cologuard 11/05/1995 Sigmoidoscopy 11/05/1995 Fecal Occult Blood Test 12/16/2012 12/17/2011 DISCUSS TOBACCO CESSATION (REFER TO SMARTSET #6126) 12/29/2015 12/28/2014 (Discussed) Hepatitis B Vaccine (2 [...] as of this encounter Visit Diagnoses Diagnosis Non-small cell cancer of right lung (HCC) Squamous cell carcinoma of right lung (HCC) Encounter for antineoplastic chemotherapy documented in this encounter Care Teams Cloth Finishing Range Tender Relationship Specialty Start Date End Date Vidal Barba MD [address] [facility] [place] [address] PCP - General Family Medicine 01/02/24 documented as of this encounter
--- OUTSIDE RECORDS SUMMARY | 2024-02-11 06:42 | External Medical Summary | Summary of Care ---
Author Name Unknown Organization [facility] Address [address] [place] [address] Phone [phone] Care Team Providers Care Agile Scrum Master Name Role Phone Vidal Barba MD Primary Care Provider [phone] Reason for Visit * Reason Comments Outpatient Testing Encounter Details Date Type Department Care Team ([facility] st Contact Info) Description 01/23/2024 10:00 AM EDT Laboratory Laboratory [facility] [address] [place] [address] [place], Lab Scenery [address] [place] [address] Non-small cell cancer of right lung (HCC); [...] group B, by GOLD 2017 classification ([facility]) Inhale 2 Puffs by mouth 4 times a day as needed for Wheezing. 18 g 4 08/16/2022 Active Additional Information Patient not taking.Reported on 10/30/2023 Budeson-Glycopyrrol- Formoterol 160-9-4.8 MCG/ACT Inhalation AerosolIndications:C OPD, group B, by GOLD 2017 classification ([facility]) Inhale 2 Puffs by mouth [...] of right lung 01/29/2022 Unspecified atherosclerosis of [place] arteries of extremities, bilateral legs 12/27/2021 History [...] 9:40 AM EST Laboratory Laboratory [facility] [place] [address] [place] [address] [place], Lab Scenery [address] [place], [place] [address] 02/12/2024 10:15 AM EST Office Visit Hematology/Oncology Scenery Kourtney [place] [address] [place] [phone] Lisa Lopez MD [address] [place] [address] 02/12/2024 11:00 AM EST Hem/Onc Treatment Hematology/Oncology Treatment [place] [address] [place], [place] [phone] Kourtney, Chair 6 Hem Onc [address] [place] [address] 03/04/2024 9:45 AM EST Pharmacy Pharmacy Hematology Oncology [facility] [address] [place] [address] [facility], [facility] Clinic Hem/Onc [address] [place] [address] 03/23/2024 5:00 PM EST Office Visit [facility] [address] [place] [address] Vidal Barba MD [address] [place] [address] Pending Results Name Type Priority Associated Diagnoses Date /Time COMPREHENSIVE METABOLIC PANEL Lab STAT Non-small cell cancer of right lung (HCC) Squamous cell carcinoma of right lung (HCC) Encounter for antineoplastic chemotherapy 01/23/2024 10:52 AM EDT TSH WITH FREE T4 IF INDICATED Lab Routine Non-small cell cancer of right lung (HCC) [...] chemotherapy documented in this encounter Care Teams Agile Scrum Master Relationship Specialty Start Date End Date Vidal Barba MD [address] [facility] [place] [address] PCP - General Family Medicine 01/02/24 documented as of this encounter
--- OUTSIDE RECORDS SUMMARY | 2024-02-11 06:42 | External Medical Summary | Summary of Care ---
Author Name Unknown Organization [facility] Address [address] [place] [address] Phone [phone] Care Team Providers Care Metallurgist Helper Name Role Phone Vidal Barba MD Primary Care Provider [phone] Reason for Visit * Reason Comments Outpatient Testing Encounter Details Date Type Department Care Team ([facility] st Contact Info) Description 01/23/2024 10:00 AM EDT Laboratory Laboratory [facility] [address] [place] [address] [place], Lab Scenery [address] [place] [address] Non-small cell cancer of right lung (HCC); [...] COPD, group B, by GOLD 2017 classification ([facility]) Inhale 2 Puffs by mouth 4 times a day as needed for Wheezing. 18 g 4 08/16/2022 Active Additional Information Patient not taking.Reported on 10/30/2023 Budeson-Glycopyrrol- Formoterol 160-9-4.8 MCG/ACT Inhalation AerosolIndications:C OPD, group B, by GOLD 2017 classification ([facility]) Inhale 2 Puffs by mouth daily. [...] of right lung 01/29/2022 Unspecified atherosclerosis of [place] arteries of extremities, bilateral legs 12/27/2021 History [...] 9:40 AM EST Laboratory Laboratory [facility] [place] [address] [place] [address] [place], Lab Scenery [address] [place], [place] [address] 02/12/2024 10:15 AM EST Office Visit Hematology/Oncology [place]enery Kourtney [place] [address] [place] [phone] Lisa Lopez MD [address] [place] [address] 02/12/2024 11:00 AM EST Hem/Onc Treatment Hematology/Oncology Treatment, [place] [address] [place], [place] [phone] Kourtney, Chair 6 Hem Onc [place] [address] [place] [address] 03/04/2024 9:45 AM EST Pharmacy Pharmacy Hematology Oncology [facility] [address] [place] [address] [facility], [facility] Hem/Onc [address] [place] [address] 03/23/2024 5:00 PM EST Office Visit [facility] Practice [address] [place] [address] Vidal Barba MD [address] [place] [address] Scheduled Orders Name Type Priority Associated Diagnoses [...] 12/17/2011 DISCUSS TOBACCO CESSATION (REFER TO SMARTSET #4115) 12/29/2015 12/28/2014 (Discussed) Hepatitis B Vaccine (2 [...] chemotherapy documented in this encounter Care Teams Metallurgist Helper Relationship Specialty Start Date End Date Vidal Barba MD [address] [facility] [place] [address] PCP - General Family Medicine 01/02/24 documented as of this encounter
--- OUTSIDE RECORDS SUMMARY | 2024-02-11 06:42 | External Medical Summary | Summary of Care ---
Author Name Unknown Organization [facility] Address [address] [place] [address] Phone [phone] Care Team Providers Care Engineer Exhauster Name Role Phone Vidal Barba MD Primary Care Provider [phone] Reason for Visit * Reason Comments Outpatient Testing Encounter Details Date Type Department Care Team ([facility] st Contact Info) Description 01/23/2024 10:00 AM EDT Laboratory Laboratory [facility] [address] [place] [address] [place], Lab Scenery [address] [place] [address] Non-small cell cancer of right lung (HCC); [...] OPD, group B, by GOLD 2017 classification ([facility] [...] of right lung 01/29/2022 Unspecified atherosclerosis of ruby arteries of extremities, bilateral legs 12/27/2021 History [...] Team (Late st Contact Info) Description 02/12/2024 10:15 AM EST Office Visit Hematology/Oncology [facility] [address] [place] [address] Lisa Lopez MD [address] [facility] [place] [address] 03/04/2024 9:45 AM EST Pharmacy Pharmacy Hematology Oncology [facility] [place] [address] [place] [address] [facility] Hem[facility]Onc [address] [place] [address] 03/23/2024 5:00 PM EST Office Visit Family [facility] [address] [address] Sharita Nolan [address] [place] [address] Vidal Barba MD [address] [place] [address] Pending Results Name Type Priority Associated Diagnoses Date /Time CBC WITH WBC DIFFERENTIAL Lab STAT Non-small cell cancer of right lung (HCC) Squamous cell carcinoma of right lung (HCC) Encounter for antineoplastic chemotherapy 01/23/2024 10:52 AM EDT COMPREHENSIVE METABOLIC PANEL Lab STAT Non-small cell cancer of right lung (HCC) Squamous cell carcinoma of right lung (HCC) Encounter for antineoplastic chemotherapy 01/23/2024 10:52 AM EDT TSH WITH FREE T4 IF INDICATED Lab Routine Non-small cell cancer of right lung (HCC) Squamous cell carcinoma of right lung (HCC) Encounter for antineoplastic chemotherapy 01/23/2024 10:52 AM EDT CBC Lab STAT Non-small cell cancer of right lung (HCC) Squamous cell carcinoma of right lung (HCC) Encounter for antineoplastic chemotherapy 01/23/2024 10:52 AM EDT DIFFERENTIAL, AUTOMATED Lab STAT Non-small cell cancer of right lung (HCC) Squamous cell carcinoma of right lung (HCC) Encounter for antineoplastic chemotherapy 01/23/2024 10:52 AM EDT Health Maintenance Due Date Last Done Comments [...] chemotherapy documented in this encounter Care Teams Engineer Exhauster Relationship Specialty Start Date End Date Vidal Barba MD [facility] ([place], [place]) [place] [phone] PCP - General Family Medicine 01/02/24 documented as of this encounter
--- OUTSIDE RECORDS SUMMARY | 2024-02-11 06:43 | External Medical Summary | Summary of Care ---
Author Name Unknown Organization [facility] Address [address] [place] [address] Phone [phone] Care Team Providers Care Plant Ecologist Name Role Phone Vidal Barba MD Primary Care Provider [phone] Reason for Visit * Reason Comments Outpatient Testing Encounter Details Date Type Department Care Team ([facility] st Contact Info) Description 01/22/2024 9:20 AM EDT Laboratory Laboratory [facility] [address] [place] [phone] [place], Lab Scenery [address] [place] [address] Non-small cell cancer of right lung (HCC); [...] as of this encounter (statuses as of 01/22/2024) Medications Medication Sig Dispensed Refills Start Date [...] as of this encounter (statuses as of 01/22/2024) Active Problems Problem Noted Date Diagnosed Date [...] of right lung 01/29/2022 Unspecified atherosclerosis of [place] arteries of extremities, bilateral legs 12/27/2021 History [...] as of this encounter (statuses as of 01/22/2024) Resolved Problems Problem Noted Date Diagnosed Date [...] as of this encounter (statuses as of 01/22/2024) Immunizations Name Administration Dates Next Due COVID-19 [...] Care Team (Late st Contact Info) Description 01/22/2024 10:00 AM EDT Office Visit Hematology/Oncology [facility] [address] [place] [address] Lisa Lopez MD [address] [place], [place] [address] Arrived 01/22/2024 10:30 AM EDT Hem/Onc Treatment Hematology/Oncology Treatment, Center [address] [place] [phone] Kourtney, Chair 4 Hem Onc Scenery [address] [place] [address] Arrived 01/23/2024 10:00 AM EDT Laboratory Laboratory Scenery [place] [facility] [address] [place] [phone] [place], Lab Scenery [address] [facility] [place] [address] 01/23/2024 11:00 AM EDT Hem/Onc Treatment Hematology/Oncology Treatment, Center [address] [facility], [place] [phone] Kourtney, Chair 8 Hem Onc Scenery [address] [place], [place] [address] 03/04/2024 9:45 AM EST Pharmacy Pharmacy Hematology Oncology [place] [address] [place] [address] [facility] Hem/Onc [address] [place] [address] 03/23/2024 5:00 PM EST Office Visit Family [facility] [address] [place] [address] Vidal Barba MD [address] [place] [address] Pending Results Name Type Priority Associated Diagnoses Date /Time CBC WITH WBC DIFFERENTIAL Lab STAT Non-small cell cancer of right lung (HCC) Squamous cell carcinoma of right lung (HCC) Encounter for antineoplastic chemotherapy 01/22/2024 9:09 AM EDT COMPREHENSIVE METABOLIC PANEL Lab STAT Non-small cell cancer of right lung (HCC) Squamous cell carcinoma of right lung (HCC) Encounter for antineoplastic chemotherapy 01/22/2024 9:09 AM EDT TSH WITH FREE T4 IF INDICATED Lab Routine Non-small cell cancer of right lung (HCC) Squamous cell carcinoma of right lung (HCC) Encounter for antineoplastic chemotherapy 01/22/2024 9:09 AM EDT CBC Lab STAT Non-small cell cancer of right lung (HCC) Squamous cell carcinoma of right lung (HCC) Encounter for antineoplastic chemotherapy 01/22/2024 9:09 AM EDT DIFFERENTIAL, AUTOMATED Lab STAT Non-small cell cancer of right lung (HCC) Squamous cell carcinoma of right lung (HCC) Encounter for antineoplastic chemotherapy 01/22/2024 9:09 AM EDT DIFFERENTIAL, TECHNOLOGIST REVIEW Lab Routine Non-small cell cancer of right lung (HCC) Squamous cell carcinoma of right lung (HCC) Encounter for antineoplastic chemotherapy 01/22/2024 9:09 AM EDT Health Maintenance Due Date Last [...] 01/13/2024, 08/23, 07/04/2023, Additional history exists GFR 07/16/2024 01/16/2024, 12/24, 01/09/2024, Additional history exists AAA Monitoring 09/09/2024 09/10/2023, 10/24, 11/24/2021, Additional history exists Mammogram 10/21/2024 10/22/2023, 09/23, 09/02/2019, Additional history exists B-12 12/24/2024 12/25/2023, 05/0 10/2022, 07/01/2017, Additional history exists Albumin/Creatinine Ratio 01/12/2025 024, 09/11/2023, 04/29/2023, Additional history exists PTH 01/12/2025 01/13/2024, 08/23, 01/11/2023, Additional history exists Phosphate 01/12/2025 01/13/2024, 08/23, 02/05/2023, Additional history exists Hgb 01/15/2025 01/16/2024, 12/24, 01/09/2024, Additional history exists O2 ASSESSMENT COMPLETED IN PAST YEAR FOR COPD 01/15/2025 01/16/2024 Colonoscopy 10/21/2028 10/21/2018, 04/03/2011 Colorectal Cancer Screening [...] chemotherapy documented in this encounter Care Teams Plant Ecologist Relationship Specialty Start Date End Date Vidal Barba MD [address] [facility] [place] [phone] PCP - General Family Medicine 01/02/24 documented as of this encounter
--- OUTSIDE RECORDS SUMMARY | 2024-02-11 06:43 | External Medical Summary | Summary of Care ---
Author Name Unknown Organization [facility] Address [address] [place] [address] Phone [phone] Care Team Providers Care Marshmallow Maker Name Role Phone Vidal Barba MD Primary Care Provider [phone] Reason for Visit * Reason Comments Medication Management * Evaluate & Treat - Unlimited Visits (Within 10 days (routine)) - Authorized Specialty Diagnoses / Procedures Referred By Contac t Referred To Contact Pharmacist / Pharmacy Diagnoses Non-small cell cancer of right lung (HCC) Adriana Maria, [facility] [address] [place] [address] Referral ID Status Reason Start Date Expiration Date Visits Requested Visits Authorized [id number] Authorized Specialty Services Required 4 99 99 Encounter Details Date Type Department Care Team (Late st Contact Info) Description 01/17/2024 9:30 AM EDT Pharmacy Pharmacy Hematology Oncology [facility] [address] [place] [address] [facility] Hem/Onc [address] [place] [address] Non-small cell cancer of right lung (HCC)* Allergies Active Allergy Reactions Criticality Noted [...] as of this encounter (statuses as of 01/17/2024) Medications Medication Sig Dispensed Refills Start Date [...] B, by GOLD 2017 classification ([facility]) Inhale 2 Puffs by mouth 4 times a day as needed for Wheezing. 18 g 4 08/16/2022 Active Additional Information Patient not taking.Reported on 10/30/2023 Budeson-Glycopyrrol- Formoterol 160-9-4.8 MCG/ACT Inhalation AerosolIndications:C OPD, group B, by GOLD 2017 classification ([facility]) Inhale 2 Puffs by mouth daily. Breztri [...] as of this encounter (statuses as of 01/17/2024) Active Problems Problem Noted Date Diagnosed Date [...] of right lung 01/29/2022 Unspecified atherosclerosis of [place] arteries of extremities, bilateral legs 12/27/2021 History [...] as of this encounter (statuses as of 01/17/2024) Resolved Problems Problem Noted Date Diagnosed Date [...] intraepithelial neoplasia grade 2 06/09/2010 10/13/2012 Overview: [facility] 02/26/11-BENIGN KNEE JOINT REPLACEMENT-LEFT 01/3106/09/2010 10/13/2012 Dyslipidemia, [...] as of this encounter (statuses as of 01/17/2024) Immunizations Name Administration Dates Next Due COVID-19 [...] on file documented as of this encounter Progress Notes * Adriana Maria, [facility] - 01/17/2024 11:55 AM EDT MEDICATION THERAPY MANAGEMENT OSIMERTINIB TREATMENT PROGRESS NOTE Precious Pedroza Tressa [id number] Patient Phone Numbers : Ryne Communication: Spoke to: Patient Treatment: Medication: Osimertinib (Tagrisso) Indication/Staging/Diagnosis Code: NSCLC, L858R positive / C34.90 Dose: 40mg daily ( 04/26/22) Administration: +/- food Start Date: 03/05/22 Primary Photocopying Machine Operator/Oncologist: Dr. Lopez Supportive Care Meds: None Prophylactic Meds: Hydrocortisone Treatment History: None Treatment Dose Adjustment/Hold History: 04/17/22: reduce osimertinib to 40mg daily due to rash and diarrhea 06/20/22-06/27/22 and 10/09/22-10/23/22: osimertinib held due to increased weakness, decreased appetite, and diarrhea Interval History: Pt states she did not receive chemo 01/16/24 and only received iron replacement as she did not feelwell. Denies fever (temp > 100.4) Continues to endorse rash/dry skin on face resolved with Gold Valderrama Reports brittle nails but denies s/s of infection or nails falling off No other concerns regarding osimertinib, tolerating therapy well Changes to medication list since last visit? No Drug interaction assessment: Treatment plan and current medication list evaluated for drug-drug interactions. No clinically significant drug interaction identified Assessment and Plan: WBC/ANC elevated Advised pt to contact office if symptoms worsen or fever develops (temp > 100.4) Will monitor closely Hgb low but improving Na+ low but stable. States PCP to call sodium replacement into pharmacy Will monitor closely BUN and creatinine elevated Pt receiving paclitaxel/carboplatin/pembrolizumab for squamous cell carcinoma Encouraged increased fluid intake Will monitor closely All other labs stable Continue Gold Valderrama for xeroderma management. Pt understands to contact office if rash worsens or skin appears infected Advised pt to keep nails trimmed short and contact office if nailbeds appear infected Continue osimertinib Assessment of compliance: compliant Assessment of adverse effects attributed to drug therapy: Rash/Dry Skin- present Nail Changes- present Diarrhea - absent Pneumonitis - absent Dose adjustment needed based on lab or adverse drug reaction? No Follow up: 1 week OV/labs; 7 weeks MTM Adriana Maria, PharmD, BCOP Clinical Pharmacist, [facility] Oral Chemotherapy [facility] 01/17/2024, 12:14 PM Monitoring Parameters: Estimated CrCl Serum creatinine: 1.7 mg/dL (H) 01/16/24 0808 Estimated creatinine clearance: 24.4 mL/min (A) Hepatitis panel Latest Reference Range & Units 02/07/22 11:35 Hepatitis B Surface Antigen Negative Negative Hepatitis B Surface Antibody, Quantitative mIU/mL <3.5 HEPATITIS B SURFACE ANTIBODY Rpt Hepatitis B Surface Antibody, Interpretation NOT immune to Hepatitis B Virus Hepatitis B Surface Antibody, Qualitative Negative Hepatitis B Core Antibodies IgG and IgM Negative Negative test N/A - postmenopausal Suggested lab monitoring Suggested lab monitoring: baseline ECG and ECHO (can consider periodicallywhile on treatment based on risk factors or development of s/sx); test (in females of reproductive potential prior to therapy initiation); electrolytes periodically Date QTc 11/28/23 445 ms Date LVEF 11/01/21 65-70% Treatment Parameters Per PI Pertinent Labs: Latest Reference Range & Units 01/01/24 08:18 01/09/24 08:47 01/16/24 08:08 WBC 4.00 - 10.80 K/uL 8.49 7.26 11.88 (H) RBC 3.85 - 5.15 M/uL 2.96 3.06 3.16 HGB 12.0 - 15.3 g/dL 8.1 (L) 8.6 (L) 9.1 (L) HCT 36.0 - 45.2 % 25.1 (L) 26.6 (L) 27.9 (L) MCV 81.5 - 97.5 fL 84.8 86.9 88.3 MCH 27.0 - 34.0 pg 27.4 28.1 28.8 MCHC 32.0 - 36.0 g/dL 32.3 32.3 32.6 RDW 11.5 - 15.5 % 18.0 20.4 21.2 PLT 140 - 400 K/uL 433 (H) 413 (H) 288 MPV 6.6 - 11.1 fL 8.3 8.5 8.7 CBC WITH WBC DIFFERENTIAL Rpt ! Rpt ! Rpt ! Absolute Neutrophils 1.80 - 7.70 K/uL 7.41 6.46 9.50 (H) Latest Reference Range & Units 01/01/24 08:18 01/09/24 08:47 01/16/24 08:08 SODIUM 135 - 146 mmol/L 130 (L) 131 (L) 130 (L) Latest Reference Range & Units 01/01/24 08:18 01/09/24 08:47 01/13/24 00:00 01/16/24 08:08 BUN 6 - 20 mg/dL 32 (H) 35 (H) 39 (H) CREATININE 0.5 - 1.0 mg/dL 1.6 (H) 1.6 (H) 1.60 ! (E) 1.7 (H) EGFR >=60 mL/min 35 (L) 35 (L) 34 (L) (E) 32 (L) Latest Reference Range & Units 01/01/24 08:18 01/09/24 08:47 01/16/24 08:08 TSH 0.27 - 4.20 uIU/mL 1.00 1.16 3.49 Latest Reference Range & Units 01/01/24 08:18 01/09/24 08:47 01/16/24 08:08 Albumin 3.8 - 5.0 g/dL 4.0 4.4 4.1 AST 10 - 35 U/L 11 12 12 ALT 10 - 35 U/L 6 (L) <5 (L) 5 (L) Alkaline Phosphatase 35 - 130 U/L 89 94 91 Bilirubin, Total <=1.2 mg/dL 0.2 0.2 0.3 Time Spent on Encounter: 11 - 15 minutes Encounter Group: Oncology Encounter Interventions Item Category: Oral Chemotherapy Osimertinib Problem/Rationale: Safety: Needs additional monitoring - Medication Requires monitoring Pharmacist Intervention(s): Lab monitoring, Non-pharmacological intervention provided, and Toxicitymonitoring Magnitude of Intervention: Monitoring with direction (Level 1) documented in this encounter Plan of Treatment Upcoming Encounters Date Type Department Care Team (Late st Contact Info) Description 01/22/2024 9:20 AM EDT Laboratory Laboratory [facility] [place] [address] [place] [phone] Kourt[place], Lab Scenery [address] [facility] [place] [address] 01/22/2024 10:00 AM EDT Office Visit Hematology/Oncology [facility] Kourtney [place] [address] [place] [address] Lisa Lopez MD [address] [place] [address] 01/22/2024 10:30 AM EDT Hem/Onc Treatment Hematology/Oncology Treatment, [address] [place] [phone] Kourtney, Chair 4 Hem Onc Scenery [address] [place] [address] 01/23/2024 10:00 AM EDT Laboratory Laboratory Eduardo [place]ourtney [place] [address] [place] [address] [place], Lab Scenery [address] [facility] [place], [place] [address] 01/23/2024 11:00 AM EDT Hem/Onc Treatment Hematology/Oncology [address], [address] [address] Kourtney, Chair 8 Hem Onc Scenery [address] [place], [place] [address] 03/04/2024 9:45 AM EST Pharmacy Pharmacy Hematology Oncology [place] [address] [place] [address] [facility] Hem/Onc [address] [place] [address] 03/23/2024 5:00 PM EST Office Visit Family [facility] [address] [place] [address] Vidal Barba MD [address] [place] [address] Scheduled Referrals Name Type Priority Associated Diagnoses Orde r Schedule PHARMACIST MEDS THERAPY MGMT REFERRAL OP Referral Within 10 days (routine) Non-small cell cancer of right lung (HCC) Ordered: 01/08/2024 Health Maintenance Due Date Last Done Comments [...] Diagnosis Non-small cell cancer of right lung (HCC)- Primary documented in this encounter Care Teams Marshmallow Maker Relationship Specialty Start Date End Date Vdial Barba MD [address] [facility] [place] [address] PCP - General Family Medicine 01/02/24 documented as of this encounter
--- OUTSIDE RECORDS SUMMARY | 2024-02-11 06:43 | External Medical Summary | Summary of Care ---
Author Name Unknown Organization [facility] Address [address] [place] [address] Phone [phone] Care Team Providers Care Sewage Reticulation Drafting Officer Name Role Phone Vidal Barba MD Primary Care Provider [phone] Reason for Visit * Reason Comments Infusion Venofer infusion Chemotherapy Day 1, cycle 2 Keytr uda, paclitaxel, carboplatin Encounter Details Date Type Department Care Team (Latest Contact Info) Description 01/16/2024 8:30 AM EDT Hem/Onc Treatment Hematology/Oncolog y Treatment, [place] [address] [place] [address] Kourtney, Chair 9 Hem Onc [facility] [address] [place] [address] Anemia due to chronic renal [...] as of this encounter (statuses as of 01/16/2024) Medications Medication Sig Dispensed Refills Start Date [...] COPD, group B, by GOLD 2017 classification ([facility]) Inhale 2 Puffs by mouth 4 times a day as needed for Wheezing. 18 g 4 08/16/2022 Active Additional Information Patient not taking.Reported on 10/30/2023 Budeson-Glycopyrrol- Formoterol 160-9-4.8 MCG/ACT Inhalation AerosolIndications:C OPD, group B, by GOLD 2017 classification ([facility]) Inhale 2 Puffs by mouth daily. Breztri [...] as of this encounter (statuses as of 01/16/2024) Active Problems Problem Noted Date Diagnosed Date [...] of right lung 01/29/2022 Unspecified atherosclerosis of [place] arteries of extremities, bilateral legs 12/27/2021 History [...] as of this encounter (statuses as of 01/16/2024) Resolved Problems Problem Noted Date Diagnosed Date [...] as of this encounter (statuses as of 01/16/2024) Immunizations Name Administration Dates Next Due COVID-19 [...] Nursing Notes * Maddi Pak RN - 01/16/2024 12:02 PM EDT Patient [...] left facility in stable condition. * Maddi aPk RN - 01/16/2024 9:22 AM EDT Chair [...] 9:30 AM EDT Pharmacy Pharmacy Hematology Oncology [facility] [address] [place] [address] [facility] Hem/Onc [address] [place] [address] 01/22/2024 9:20 AM EDT Laboratory Laboratory [facility] [place] [address] [place], [place] [phone] Kourtney, Lab Scenery [address] [place], [place] [address] 01/22/2024 10:00 AM EDT Office Visit Hematology/Oncology [facility] [place] [address] [place] [phone] Lisa Lopez MD [address] [place] [address] 01/22/2024 10:30 AM EDT Hem/Onc Treatment Hematology/Oncology Treatment, [place] [address] [facility], [place] [phone] Kourtney, Chair 4 Hem Onc Scenery [address] [place] [address] 01/23/2024 10:00 AM EDT Laboratory Laboratory [facility] Kourtney [place] [address] [place] [phone] Kourt[place], Lab Scenery [address] [place], [place] [address] 01/23/2024 11:00 AM EDT Hem/Onc Treatment Hematology/Oncology Treatment, [place] [address] [facility], [place] [phone] Kourtney, Chair 8 Hem Onc Scenery [address] [place], [place] [address] 03/23/2024 5:00 PM EST Office Visit Family Practice [address] [place] [address] Vidal Barba MD [address] [place] [address] Health Maintenance Due Date Last Done Comments [...] ONCE PRN Other, Hypersensitivity Reaction, Starting on Sat01/16/24 at 0856, Until Sat01/17/24 at 0855, For 24 hours EPINEPHrine 1 MG/ML inj 0.3 mg 0.3 mg, Intramuscular, ONCE PRN Other, Hypersensitivity Reaction or Anaphylaxis, Starting on Sat01/16/24 at 0856, Until Sat01/17/24 at 0855, For 24 hours hEParin 100 UNIT/ML Lock Flush inj 500 Units 500 Units (5 mL), IV Lock, PRN Other, IV Flush, Starting on Staci 01/16/24 at 0856, Until Sat01/17/24 at 0855, For 24 hours, Do not flush if lock, PICC, or central line not in place; IV infusing or unable to flush. Given 01/16/2024 11:19 AM EDT 500 Units Hydrocortisone Sod Suc (PF) (Solu-Cortef) inj 100 mg 100 mg, IV Push, ONCE PRN Other, Hypersensitivity Reaction, Starting on Sat01/16/24 at 0856, Until Sat01/17/24 at 0855, For 24 hours NSS infusion 500 mL, Intravenous, at 50 mL/hr, CONTINUOUS, Starting on Sat01/16/24 at 1000, Until Sat01/16/24 at 1959 Start Infusion 01/16/2024 9:03 AM EDT 500 mL 50 mL/hr oxygen GAS Inhalation, OXYGEN, First dose on Sat01/16/24 at 0930, Until Discontinued, Device/Managed by: Low Flow Device, [...] Starting on Staci 01/16/24 at 0856, Until Sat01/17/24 at 0855, For 24 hours, Do not flush if lock, PICC, or central line not in place; IV infusing or unable to flush. Given 01/16/2024 11:19 AM EDT 10 mL Inactive Administered Medications - up to 3 most recent administrations Medication Order MAR Action Action Date Dose Rate Site Iron Sucrose (Venofer) 300 mg in NSS 250 mL ivpb 300 mg, IV Piggyback, ONCE, 1 dose, On Sat01/16/24 at 1030, Administer over 90 Minutes Start Infusion 01/16/2024 9:04 AM EDT 300 mg 180 mL/hr documented in this encounter Care Teams Sewage Reticulation Drafting Officer Relationship Specialty Start Date End Date Vidal Barba MD [address] [facility] [place] [address] PCP - General Family Medicine 01/02/24 documented as of this encounter
--- OUTSIDE RECORDS SUMMARY | 2024-02-11 06:43 | External Medical Summary | Summary of Care ---
Author Name Unknown Organization [facility] Address [address] [place] [address] Phone [phone] Care Team Providers Care Industrial Maintenance Manager Name Role Phone Vidal Barba MD Primary Care Provider [phone] Encounter Details Date Type Department Care Team (Late st Contact Info) Description 12/30/2023 Orders Only Hematology/Oncology Treatment, [place] [address] [place] [address] Keily Loco CRNP [address] [place] [address] Allergies Active Allergy Reactions Criticality Noted Date [...] as of this encounter (statuses as of 01/20/2024) Medications Medication Sig Dispensed Refills Start Date [...] COPD, group B, by GOLD 2017 classification ([facility]) Inhale 2 Puffs by mouth 4 times a day as needed for Wheezing. 18 g 4 08/16/2022 Active Additional Information Patient not taking.Reported on 10/30/2023 Budeson-Glycopyrrol- Formoterol 160-9-4.8 MCG/ACT Inhalation AerosolIndications:C OPD, group B, by GOLD 2017 classification ([facility]) Inhale 2 Puffs by mouth [...] XL)Indications:MDD (major depressive disorder), recurrent episode, moderate ([facility]) Take 1 Tablet by mouth in the [...] PRIOR TO ACCESSING. 30 g 11/29/2023 Active documented as of this encounter (statuses as of 01/20/2024) Active Problems Problem Noted Date Diagnosed Date [...] of right lung 01/29/2022 Unspecified atherosclerosis of [place] arteries of extremities, bilateral legs 12/27/2021 History [...] as of this encounter (statuses as of 01/20/2024) Resolved Problems Problem Noted Date Diagnosed Date [...] as of this encounter (statuses as of 01/20/2024) Immunizations Name Administration Dates Next Due COVID-19 [...] Description 01/22/2024 9:20 AM EDT Laboratory [facility] [address] [phone] [place] [address] 01/22/2024 10:00 AM EDT Office Visit Hematology/Oncology [facility] [address] [place] [phone] Lisa Lopez MD [address] [place] [address] 01/22/2024 10:30 AM EDT Hem/Onc Treatment Hematology/Oncology Treatment, [place] [address] [facility], [place] [phone] Kourtney, Chair 4 Hem Onc Scenery [address] [place] [address] 01/23/2024 10:00 AM EDT Laboratory Laboratory [facility] [place] [address] [place] [phone] Kourtney, Lab Scenery [address] [place], [place] [address] 01/23/2024 11:00 AM EDT Hem/Onc Treatment Hematology/Oncology Treatment, [place] [address] [facility], [place] [phone] Kourtney, Chair 8 Hem Onc Scenery [address], [place] [address] 03/04/2024 9:45 AM EST Pharmacy Pharmacy Hematology Oncology [facility] [address] [place] [address] [facility] [place] Hem/Onc [address] [place] [address] 03/23/2024 5:00 PM EST Office Visit Family Practice [address] [place] [address] [place] [address] [place] [address] Health Maintenance Due Date Last Done Comments [...] Not on filedocumented as of this encounter Care Teams Industrial Maintenance Manager Relationship Specialty Start Date End Date Vidal Barba MD [address] [facility] [place] [id number] PCP - General Family Medicine 01/02/24 documented as of this encounter
--- OUTSIDE RECORDS SUMMARY | 2024-02-11 06:43 | External Medical Summary | Summary of Care ---
Author Name Unknown Organization [facility] Address [address] [place] [address] Phone [phone] Care Team Providers Care Picture Booker Name Role Phone Vidal Barba MD Primary Care Provider [phone] Reason for Visit * Reason Comments IV Therapy Venofer Encounter Details Date Type Department Care Team (Latest Contact Info) Description 01/22/2024 10:30 AM EDT Hem/Onc Treatment Hematology/Oncology Treatment, [address] [phone] Kourtney Chair [address] [address] Anemia due to chronic renal failure treated [...] of right lung 01/29/2022 Unspecified atherosclerosis of [place] arteries of extremities, bilateral legs 12/27/2021 History [...] Care Team (Late st Contact Info) Description 01/23/2024 10:00 AM EDT Laboratory Laboratory [facility] [place] [address] [place] [phone] Kourtney Lab Scenery [address] [place] [address] 01/23/2024 11:00 AM EDT Hem/Onc Treatment Hematology/Oncology Treatment, [place] [address] [place] [phone] Kourtney Chair 8 Hem Onc Scenery [address] [place] [address] 03/04/2024 9:45 AM EST Pharmacy Pharmacy Hematology Oncology [facility] [address] [place] [address] [facility] [place] Hem/Onc [address] [place] [address] 03/23/2024 5:00 PM EST Office Visit Family Practice [address], [place] [address] [place] [address] Vidal Barba MD [address] [place] [address] Health Maintenance Due Date Last Done Comments [...] Primary documented in this encounter Administered Medications Active Administered Medications - up to 3 most recent administrations Medication Order MAR Action Action Date Dose Rate Site diphenhydrAMINE (Benadryl) inj 50 mg 50 mg, IV Push, ONCE PRN Other, Hypersensitivity Reaction, Starting on Sat01/22/24 at 1037, Until Sat01/23/24 at 1036, For 24 hours EPINEPHrine 1 MG/ML inj 0.3 mg 0.3 mg, Intramuscular, ONCE PRN Other, Hypersensitivity Reaction or Anaphylaxis, Starting on Sat01/22/24 at 1037, Until Staci 01/23/24 at 1036, For 24 hours hEParin 100 UNIT/ML Lock Flush inj 500 Units 500 Units (5 mL), IV Lock, PRN Other, IV Flush, Starting on Sat01/22/24 at 1037, Until Staci 01/23/24 at 1036, For 24 hours, Do not flush if lock, PICC, or central line not in place; IV infusing or unable to flush. Given 01/22/2024 12:55 PM EDT 500 Units Hydrocortisone Sod Suc (PF) (Solu-Cortef) inj 100 mg 100 mg, IV Push, ONCE PRN Other, Hypersensitivity Reaction, Starting on Sat01/22/24 at 1037, Until Staci 01/23/24 at 1036, For 24 hours NSS infusion 500 mL, Intravenous, at 50 mL/hr, CONTINUOUS, Starting on Sat01/22/24 at 1145, Until Sat01/22/24 at 2144 Start Infusion 01/22/2024 11:02 AM EDT 500 mL 50 mL/hr oxygen GAS Inhalation, OXYGEN, First dose on Sat01/22/24 at 1115, Until Discontinued, Device/Managed by: Low Flow Device, [...] Flush, Starting on Sat01/22/24 at 1037, Until Staci 01/23/24 at 1036, For 24 hours, Do not flush if lock, PICC, or central line not in place; IV infusing or unable to flush. Given 01/22/2024 12:55 PM EDT 10 mL Inactive Administered Medications - up to 3 most recent administrations Medication Order MAR Action Action Date Dose Rate Site Iron Sucrose (Venofer) 300 mg in NSS 250 mL ivpb 300 mg, IV Piggyback, ONCE, 1 dose, On Sat01/22/24 at 1215, Administer over 90 Minutes Start Infusion 01/22/2024 11:06 AM EDT 300 mg 180 mL/hr documented in this encounter Care Teams Picture Booker Relationship Specialty Start Date End Date Vidal Barba MD [address] [facility] [place] [id number] PCP - General Family Medicine 01/02/24 documented as of this encounter
--- OUTSIDE RECORDS SUMMARY | 2024-02-11 06:43 | External Medical Summary ---
Author Name Unknown Address Unknown Organization [id number]:[facility] [place] [address] Laboratory Report Ordering Provider Test Date Status LEWIS OLIVA 01/22/2024 09:09:38 Final Observation Date Value Abnormality Reference (Units ) Status SYNC LEUKOCYTES IN BLOOD BY AUTOMATED COUNT 01/22/2024 09:09:38 11.25 Above high normal 4.00-10.80 (K/uL) Final Neutrophils/100 leukocytes in Blood by Manual count 01/22/2024 09:09:38 69.0 40.0-75.0 (%) Final Lymphocytes/100 leukocytes in Blood by Manual count 01/22/2024 09:09:38 17.0 Below low normal 18.0-42.0 (%) Final Monocytes/100 leukocytes in Blood by Manual count 01/22/2024 09:09:38 7.0 1.0-11.0 (%) Final Eosinophils/100 leukocytes in Blood by Manual count 01/22/2024 09:09:38 6.0 0.0-6.0 (%) Final Metamyelocytes/100 leukocytes in Blood by Manual count 01/22/2024 09:09:38 1.0 Above high normal <=0.0 (%) Final Neutrophils [#/volume] in Blood by Manual count 01/22/2024 09:09:38 7.76 Above high normal 1.80-7.70 (K/uL) Final Lymphocytes [#/volume] in Blood by Manual count 01/22/2024 09:09:38 1.91 1.00-4.80 (K/uL) Final Monocytes [#/volume] in Blood by Manual count 01/22/2024 09:09:38 0.79 0.00-1.10 (K/uL) Final Eosinophils [#/volume] in Blood by Manual count 01/22/2024 09:09:38 0.68 0.00-0.70 (K/uL) Final Metamyelocytes [#/volume] in Blood by Manual count 01/22/2024 09:09:38 0.11 Above high normal <=0.00 (K/uL) Final Nucleated erythrocytes/100 leukocytes [Ratio] in Blood by Automated count 01/22/2024 09:09:38 Final Performing Location [facility] [place] [address]
--- OUTSIDE RECORDS SUMMARY | 2024-02-11 06:43 | External Medical Summary ---
Author Name Unknown Address Unknown Organization K09[facility] [place] [id number] Laboratory Report Ordering Provider Test Date Status LEWIS OLIVA 01/22/2024 09:09:38 Final Observation Date Value Abnormality Reference (Units ) Status WBC, Total 01/22/2024 09:09:38 11.25 Above high normal 4 .00-10.80 (K/uL) Final RBC 01/22/2024 09:09:38 3.15 3.85-5.15 (M/uL) Final Hemoglobin 01/22/2024 09:09:38 9.4 Below low normal 12 .0-15.3 (g/dL) Final HCT 01/22/2024 09:09:38 28.1 Below low normal 36. 0-45.2 (%) Final MCV 01/22/2024 09:09:38 89.2 81.5-97.5 (fL) Final MCH 01/22/2024 09:09:38 29.8 27.0-34.0 (pg) Final MCHC 01/22/2024 09:09:38 33.5 32.0-36.0 (g/dL) Final RDW 01/22/2024 09:09:38 21.5 11.5-15.5 (%) Final Platelets 01/22/2024 09:09:38 292 140-400 (K /uL) Final MPV 01/22/2024 09:09:38 8.4 6.6-11.1 ( fL) Final Performing Location [facility] [place] [id number]
--- OUTSIDE RECORDS SUMMARY | 2024-02-11 06:43 | External Medical Summary ---
Author Name Unknown Address Unknown Organization [id number]:[facility] [address] [place] [address] Laboratory Report Ordering Provider Test Date Status LEWIS OLIVA 01/22/2024 09:09:38 Final Observation Date Value Abnormality Reference (Units ) Status BUN 01/22/2024 09:09:38 33 Above high normal 6-20 (mg/dL) Final Creatinine 01/22/2024 09:09:38 1.6 Above high normal 0.5-1.0 (mg/dL) Final Glomerular filtration rate/1.73 sq M.predicted [Volume Rate/Area] in Serum, Plasma or Blood by Creatinine-based formula (CKD-EPI) 01/22/2024 09:09:38 33 Below low normal >=60 (mL/min) Final eGFR is calculated based on the CKD-EPI 2020 equation. Sodium 01/22/2024 09:09:38 130 Below low normal 135 -146 (mmol/L) Final Potassium 01/22/2024 09:09:38 4.2 3.5-5.1 (m mol/L) Final Cl 01/22/2024 09:09:38 93 Below low normal 98- 107 (mmol/L) Final CO2 01/22/2024 09:09:38 25 22-32 (mmo l/L) Final Anion gap 01/22/2024 09:09:38 12 7-15 (mmol /L) Final Glucose 01/22/2024 09:09:38 122 Above high normal 70 -120 (mg/dL) Final Albumin 01/22/2024 09:09:38 4.1 3.8-5.0 (g /dL) Final AST (Aspartate aminotransferase) 01/22/2024 09:09:38 12 10-35 (U/L) Fin al Alk Phos 01/22/2024 09:09:38 90 35-130 (U/ L) Final Bilirubin, Total 01/22/2024 09:09:38 0.2 <=1 .2 (mg/dL) Final Calcium 01/22/2024 09:09:38 9.5 8.4-10.2 ( mg/dL) Final Protein 01/22/2024 09:09:38 7.0 6.0-8.3 (g /dL) Final ALT (Alanine aminotransferase) 01/22/2024 09:09:38 5 Below low normal 10-35 (U/L) Final Performing Location [facility] [address] [place] [address]
--- OUTSIDE RECORDS SUMMARY | 2024-02-11 06:43 | External Medical Summary ---
Author Name Unknown Address Unknown Organization [id number]:[facility] [place] [address] [place] [id number] Laboratory Report Ordering Provider Test Date Status OLIVAIVETTLEWIS 01/22/2024 09:09:38 Final Observation Date Value Abnormality Reference (Units ) Status TSH 01/22/2024 09:09:38 3.30 0.27-4.20 (uIU/mL) Final Performing Location [facility] [place] [address] [place] [id number]
--- OUTSIDE RECORDS SUMMARY | 2024-02-11 06:43 | External Medical Summary | Summary of Care ---
Author Name Unknown Organization [facility] Address [address] [place] [address] Phone [phone] Care Team Providers Care Face Burler Name Role Phone Vidal Barba MD Primary Care Provider [phone] Reason for Visit * Reason Comments Chemotherapy Chemo/recheck Encounter Details Date Type Department Care Team ([facility] st Contact Info) Description 01/22/2024 10:00 AM EDT Office Visit Hematology/Oncology [facility] [place] [address] [place] [address] Lisa Lopez MD [address] [facility] [place] [address] Squamous cell carcinoma of right lung (HCC)*; [...] COPD, group B, by GOLD 2017 classification ([facility]) Inhale 2 Puffs by mouth 4 times a day as needed for Wheezing. 18 g 4 08/16/2022 Active Additional Information Patient not taking.Reported on 10/30/2023 Budeson-Glycopyrrol- Formoterol 160-9-4.8 MCG/ACT Inhalation AerosolIndications:C OPD, group B, by GOLD 2017 classification ([facility]) Inhale 2 Puffs by mouth [...] 2023 Chronic kidney disease, stage 4 (severe) 05/13/2 024 Overview: Per CKD protocol Malignant neoplasm of lung 07/30/2022 Non-small cell cancer of right lung 01/29/2022 Unspecified atherosclerosis of [place] arteries of extremities, bilateral legs 12/27/2021 History [...] Day Cigarettes 1 45 Smokeless Tobacco: Never Tobacco Cessation:Ready to Q uit: Not Asked; Counseling Given: Not Answered Alcohol Use Standard Drinks/Week Comments No 0 [...] Sign Reading Time Taken Comments Blood Pressure 135/69 01/22/2024 9:49 AM EDT Pulse 93 01/22/2024 9:49 AM EDT Temperature 36.4 C (97.6 F) 01/22/2024 9:49 AM ED T Respiratory Rate - - Oxygen Saturation 93% 01/22/2024 9:49 AM EDT Inhaled Oxygen Concentration - - Weight 61.1 kg (134 lb 12.8 oz) 01/22/2024 9:49 AM EDT Height - - Body Mass Index 23.88 11/28/2023 2:37 PM EDT documented in this encounter Progress Notes * Lisa Lopez MD - 01/22/2024 9:44 AM EDT Outpatient Consult Note Data Source: Patient, Epic record. Data Source: Patient, Epic record. 01/22/2024 9:44 AM Precious Yovany Bustillos [id number] 73 year old Patient Encounter: HEMATOLOGY/ONCOLOGY [facility] Cancer Diagnosis: Right lung mass, FNA consistent with non-small cell lung cancer favor adenocarcinoma. 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. Current Treatment: Tagrisso, started on 03/05/22. Dose of Tagrisso was decreased to 40 mg on 04/26/2021 because of thetoxicity. Receving Taxol carboplatin plus Keytruda for squamous cell carcinoma. Previous Treatment: None Oncologic History : 73-year-old female with history of multiple medical problems including hypertension, diabetes, aortic ectasia, peripheral artery disease status post bilateral femoral stent and occlusion and stenosisof bilateral carotid artery is diagnosed of non-small cell lung cancer. She had a CT chest low does in done on 07/24/2021 which revealed mass like area of ground-glass opacity in the right upper lobe measuring 3.9 x 2.5 cm and there was also right lower lobe mass measuring 1.1 x 0.7 cm. PET scan was done on 2021 which revealed metabolically active ground-glass mass with central lucency in the right upper lobe with progressive growth from 2018, concerning for primary pulmonary neoplasm, particularly adenocarcinoma spectrum lesion, metabolically active solid nodule in the right lower lobe, increased in size compared to prior CT chest, concerning for primary pulmonary neoplasm versus metastasis, opacity in the posterior right upper lobe with solid component, which is increased in size/density from 2017 but without significant activity. Adenocarcinoma spectrum lesion is not excluded. She had bronchoscopy done on 12/25/2021 with biopsy of the right upper lung mass. Airway examination was normal. Result of the FNA is consistent with non- small cell lung cancer favor adenocarcinoma, PDL1 expression is less than 1% and further studies including NGS is pending. A. Lung mass, RUL, fine needle aspiration: Category: Malignant Final Interpretation: Non-small cell carcinoma, favor adenocarcinoma Cellblock: The cellblock preparation is hypocellular. B. RUL, biopsy: Category: Malignant Final Interpretation: Lung adenocarcinoma Biopsy: The biopsy specimen shows adenocarcinoma infiltrating the lung parenchyma. Immunostains show the tumor cells are positive for TTF-1 and negative for P40, compatible with lung adenocarcinoma. PD-L1 (SP263) <1% A. Bronchoalveolar lavage, RUL: Category: Malignant Final Interpretation: Non-small cell carcinoma, favor adenocarcinoma. She had a recent fall early November,had a LOC, hitting head, subdural hematoma. She is smoking 1 pack per day for last 55 years. Denies drinking. Family history significant for mother with the carcinoma involving the chest wall EGFR was positive on her tumor. Immunotherapy Markers Tumor Mutational [place] (TMB): TMB Unit [place] 7.55 m/MB Low Microsatellite Instability Status (MSI): MSI Status 0 Stable Result Detail DNA Variants (SNV and indels): Gene Variant Tier Amino Acid Change Nucleotide Change Consequence Allele Frequency Sequencing Depth EGFR L858R Tier 1: Strong significance p.Kys722Avi NM_005228.5: c.2573T>G Missense Variant 9.5 %1986 FANCA Tier 2: Potential significance p.? NM_000135.4: c.1083_1083+1delinsTT Splice Region Variant 7.5 % 1989 Copy Number Variants (CNV): No pathogenic copy number variants detected in this sample. RNA (translocations/fusions and exon skipping): No pathogenic RNA fusions detected in this sample. Interpretation DNA Variants (SNV and indels): Gene Clinical Implications EGFR An EGFR hotspot missense p.L858R activating variant was identified in this current specimen. L858R lies within exon 21 of the kinase domain of EGFR. Biopsy from the right lower lung masses consistent with squamous cell carcinoma. PD-L1 expression is 30% and NGS negative. Final Diagnosis A. Lung, Right lower lobe, CT/US guided core needle biopsy: Adequacy: Satisfactory for evaluation. Category: Malignant. Interpretation: Squamous cell carcinoma. Immunotherapy Markers Tumor Mutational [place] (TMB): TMB Unit [place] 8.56 m/MB Low Microsatellite Instability Status (MSI): MSI Status 2.99 Stable Result Detail Tier I: Strong Significance Variants No variants detected. Tier II: Potential Significance Variants Single Nucleotide Variants and Insertions/Deletions Gene Variant Tier Amino Acid Change Nucleotide Change Consequence Allele Frequency Sequencing Depth PTEN L57Wfs*42 Tier 2: Potential significance p.[id number] NM_000314.8: c.170delT Frameshift Variant 20.6% 365 TP53 R249M Tier 2: Potential significance p.Gyt390Nbs NM_000546.6: c.746G>T Missense Variant 25.5% 1664 Copy Number Variants Gene Consequence Copy Number Tier Chromosomal Location BRCA2 Copy number loss 0.33 Tier 2: Potential significance 13q13.1 CDKN2A Copy number loss 0 Tier 2: Potential significance 9p21.3 KIT Copy number gain 13.46 Tier 2: Potential significance 4q12 PDGFRA Copy number gain 13.04 Tier 2: Potential significance 4q12 Interval History: She tolerated 1st cycle of chemotherapy very well without any significant side effects toxicity. Overall clinically she is feeling better without any new symptoms of complain. Denies any nausea, vomiting, chest pain, palpitation abdominal pain or distention, bleeding, bruising, diarrhea, constipation. LABS/IMAGING: Results for orders placed or performed in visit on 01/22/24 COMPREHENSIVE METABOLIC PANEL Result Value Ref Range BUN 33 (H) 6 - 20 mg/dL CREATININE 1.6 (H) 0.5 - 1.0 mg/dL EGFR 33 (L) >=60 mL/min SODIUM 130 (L) 135 - 146 mmol/L POTASSIUM 4.2 3.5 - 5.1 mmol/L CHLORIDE 93 (L) 98 - 107 mmol/L CO2 25 22 - 32 mmol/L ANION GAP 12 7 - 15 mmol/L GLUCOSE 122 (H) 70 - 120 mg/dL Albumin 4.1 3.8 - 5.0 g/dL AST 12 10 - 35 U/L Alkaline Phosphatase 90 35 - 130 U/L Bilirubin, Total 0.2 <=1.2 mg/dL CALCIUM 9.5 8.4 - 10.2 mg/dL Protein 7.0 6.0 - 8.3 g/dL ALT 5 (L) 10 - 35 U/L CBC Result Value Ref Range WBC 11.25 (H) 4.00 - 10.80 K/uL RBC 3.15 3.85 - 5.15 M/uL HGB 9.4 (L) 12.0 - 15.3 g/dL HCT 28.1 (L) 36.0 - 45.2 % MCV 89.2 81.5 - 97.5 fL MCH 29.8 27.0 - 34.0 pg MCHC 33.5 32.0 - 36.0 g/dL RDW 21.5 11.5 - 15.5 % PLT 292 140 - 400 K/uL MPV 8.4 6.6 - 11.1 fL DIFFERENTIAL, TECHNOLOGIST REVIEW Result Value Ref Range WBC 11.25 (H) 4.00 - 10.80 K/uL Neutrophils % 69.0 40.0 - 75.0 % Lymphocytes % 17.0 (L) 18.0 - 42.0 % Monocytes % 7.0 1.0 - 11.0 % Eosinophils % 6.0 0.0 - 6.0 % Metamyelocytes % 1.0 (H) <=0.0 % Absolute Neutrophils 7.76 (H) 1.80 - 7.70 K/uL Absolute Lymphocytes 1.91 1.00 - 4.80 K/uL Absolute Monocytes 0.79 0.00 - 1.10 K/uL Absolute Eosinophils 0.68 0.00 - 0.70 K/uL Absolute Metamyelocytes 0.11 (H) <=0.00 K/uL nRBCs *Note: Due to a large number of results and/or encounters for the requested time period, some results have not been displayed. A complete set of results can be found in Results Review. Result of the blood test done today including CBC and CMP all are in acceptable range. REVIEW OF SYSTEMS: General: No Fever, chills, night sweats, or weight loss. HEENT: No change in visual acuity, blurred or double vision. No epistaxis, facial pain, nasal discharge or change in hearing. Denies dysphagia, no muscosal ulceration, or sores noted. Cardiovascular: No chest pain, TERRY, or palpitations Respiratory: Stable shortness of breath, cough, No hemoptysis, or pleuritic chest pain Gastrointestinal: No abdominal pain, nausea, vomiting, diarrhea, rectal pain or bleeding Genitourinary: Denies Hematuria or dysuria Musculoskeletal: No bone pain Psychiatric: No vegetative signs of depression Endocrine: No symptoms of hypothyroidism or hyperglycemia Hematologic: No bleeding or lymph nodes noted As mentioned above, all of the systems were reviewed in full and are unremarkable. Past Medical History: Diagnosis Date JESIKA inhibitor intolerance 12/28/2014 Ankle joint pain 01/23 ? gout Anxiety state 1996 ARB intolerance 12/28/2014 Atrial septal aneurysm 07/04/2016 Carpal tunnel syndrome Cervical intraepithelial neoplasia grade 2 06/09/2010 GODFREY-BSO 02/26/11-BENIGN Chronic fatigue 03/01/2016 Chronic migraine without aura without status migrainosus, not intractable 07/18/2015 COPD, moderate (HCC) 10/16/2017 Depression 10/13/2012 Diverticulitis of colon Diverticulosis of large intestine with hemorrhage 01/15/2017 DM type 2, goal A1c below 7 04/27 Dyslipidemia, goal LDL below 100 11/13/2012 Dyslipidemia, goal LDL below 70 07/04/2015 Essential hypertension with goal blood pressure less than 140/90 07/18/2015 Female stress incontinence recurrent 02/24 Frequent PVCs 07/04/2016 SOLITARIO (generalized anxiety disorder) 11/22/2015 Generalized osteoarthritis 10/30 Grief reaction 01/15/2018 High triglycerides 05/17/2011 Hip joint replacement status 01/31 History of tobacco use smoking again Hypertension goal BP (blood pressure) < 140/90 12/28/2014 Irritable bowel syndrome without diarrhea 08/19/2015 KNEE JOINT REPLACEMENT-LEFT 01/3106/09/2010 Menopause 1997 Migraine Mild intermittent asthma without complication 07/18/2015 Moderate persistent asthma without complication 01/15/2018 Osteoarthritis of hip 12/13/2011 Overweight (BMI 25.0-29.9) 10/13/2012 Persistent insomnia 01/21/2015 Personal history of smoking Primary osteoarthritis involving multiple joints 12/28/2014 Primary osteoarthritis of left shoulder 11/03/2018 Left griselda arthroplasty 11/10 Primary osteoarthritis of right hip 01/15/2018 PVD (peripheral vascular disease) ([facility]) 10/09/2019 Recurrent major depressive disorder, in partial remission (HCC) 01/15/2018 S/P arterial stent 10/09/2019 Left leg 08/11 Sciatica s/p epideral , lbp 01/24, epidural 01/27, recurrent 05/29 Seborrheic keratosis 07/04/2016 Right groin. Seborrheic keratosis 07/04/2016 Left chest wall. Removed 01/28/19. Shingles 10/13/2012 Right chest wall Smoker 10/13/2012 Status post total replacement of right hip 03/21/2018 Stress reaction 01/21/2015 Tubular adenoma of colon 10/29/2018 Three tubular adenomas removed during colonoscopy 11/10. Hx Z86.010 Type 2 diabetes mellitus with hemoglobin A1c goal of less than 7.0% ([facility]) 10/13/2012 Current Outpatient Medications Medication Sig Dispense Refill Houzz STRP Test sugar once daily and for hypo/hyperglycemic events 100 Strip 5 Melatonin 5 MG Oral Tablet Chewable Take by mouth. Albuterol Sulfate (2.5 MG/3ML) 0.083% Inhalation Nebulization Solution (Proventil) Inhale via nebulizer 1 Vial every 4 hours as needed for Wheezing. (Patient not taking: Reported on 10/30/2023) 3 mL 3 Propranolol HCl ER 60 MG Oral Capsule Extended Release 24 Hour (Inderal LA) Take 1 Capsule by mouthin the morning. Losartan Potassium 100 MG Oral Tablet (Cozaar) Take 1 Tablet by mouth in the morning. Acetaminophen 500 MG Oral Tablet Take 1 Tablet by mouth every 6 hours as needed. Albuterol Sulfate HFA 108 (90 Base) MCG/ACT Inhalation Aerosol Solution Inhale 2 Puffs by mouth 4 times a day as needed for Wheezing. (Patient not taking: Reported on 10/30/2023) 18 g 4 Lqahbzw-Jeekoqwdcxi-Qfoeduohvs 160-9-4.8 MCG/ACT Inhalation Aerosol Inhale 2 Puffs by mouth daily. Breztri inhaler 10.7 g 11 Farxiga 5 MG Oral Tablet Take 1 Tablet by mouth in the morning. Aspirin 81 MG Oral Tablet Delayed Release (Aspirin 81) Take 1 Tablet by mouth in the morning. Omeprazole 20 MG Oral Capsule Delayed Release (PriLOSEC) Take 1 Capsule by mouth in the morning. (Patient not taking: Reported on 11/28/2023) amLODIPine Besylate 5 MG Oral Tablet (Norvasc) Take 0.5 Tablets by mouth daily. 45 Tablet 0 buPROPion HCl ER (XL) 150 MG Oral Tablet Extended Release 24 Hour (Wellbutrin XL) Take 1 Tablet by mouth in the morning. 90 Tablet 3 Rosuvastatin Calcium 10 MG Oral Tablet (Crestor) TAKE 1 TABLET EVERY MORNING 90 Tablet 3 Venlafaxine HCl ER 150 MG Oral Capsule Extended Release 24 Hour (Effexor XR) TAKE 1 CAPSULE EVERY MORNING 90 Capsule 1 traZODone HCl 100 MG Oral Tablet (Desyrel) Take 1 Tablet by mouth in the morning. 90 Tablet 3 Lansoprazole 15 MG Oral Capsule Delayed Release Take 1 Capsule by mouth in the morning. Ondansetron HCl 8 MG Oral Tablet (Zofran) Take 1 Tablet by mouth every 8 hours as needed for Nausea. 30 Tablet 2 Prochlorperazine Maleate 10 MG Oral Tablet (Compazine) Take 1 Tablet by mouth every 6 hours as needed for Nausea. 30 Tablet 2 dexAMETHasone 4 MG Oral Tablet (Decadron) Take 20mg (5 tablets) the night before and morning of each chemotherapy appointment 60 Tablet 0 Lidocaine-Prilocaine 2.5-2.5 % External Cream (Emla) APPLY TO SKIN OVER MEDIPORT & COVER 1HR PRIOR TO ACCESSING. 30 g 0 Osimertinib Mesylate 40 MG Oral Tablet (Tagrisso) Take 40 mg by mouth in the morning. Take medication about same time every day, with or without food.. 30 Tablet 5 No current facility-administered medications for this visit. Social History Tobacco Use Smoking status: Every Day Current packs/day: 1.00 Average packs/day: 1 pack/day for 45.0 years (45.0 ttl pk-yrs) Types: Cigarettes Smokeless tobacco: Never Substance Use Topics Alcohol use: No Drug use: No Review of patient's allergies indicates: Allergen Reactions Lipitor [Atorvastatin Calcium] Muscle pain Lisinopril Other (Please comment) Hyperkalemia, possible renal insuff. Zocor [Simvastatin] Muscle pain Also on Tricor and Cardizem Aleve [Naproxen Sodium] Ciprofloxacin Exenatide Flagyl [Metronidazole Hcl] Unsure of reaction - thinks was nausea Nsaids Other reaction(s): Unknown PHYSICAL EXAMINATION: General Appearance: Healthy appearing patient in no acute distress LMP (LMP Unknown) Vitals reviewed. HEENT: No oral or pharyngeal masses, ulceration or thrush noted, no sinus tenderness. Neck is supple with no thyromegaly or JVD noted. Lymph Nodes: No lymphadenopathy noted in the occipital, pre and post auricular, cervical, supra andinfraclavicular, axillary, epitrochlear, inguinal, and popliteal region. Lungs/Thorax: Clear to auscultation, no accessory muscles of respiration being used. Heart: Regular rate and rhythm, normal S1, S2 Abdomen: Soft, nontender, bowel sounds present, no appreciable hepatosplenomegaly, no palpable masses Extremeties: Good pulses bilaterally, no peripheral edema. ASSESSMENT: 73-year-old female with history of multiple medical problems including hypertension, diabetes, aortic ectasia, peripheral artery disease status post bilateral femoral stent and occlusion and stenosisof bilateral carotid artery is diagnosed of non-small cell lung cancer. FNA is consistent with adenocarcinoma and PDL1 expression was less than 1%. She has at least T4 N0 stage stage IIIB disease. Her history is also significant for multiple othermedical problems. Dr. Barrera from Radiation Oncology does not want to radiate due to it being a large area, pneumonitis is a big concern, and would be also radiating healthy tissue. He said it was hard to make a local case. Dr. Navarro recommendation is systemic treatment. She had repeat PET scan done 01/25/2022 which revealed stable nodule along the posterior right lobe and there was a stable non FDG avid nodular opacity in the right breast. EGFR was positive and currently she is on Tagrisso. She had toxicity from the treatment including generalized weakness, diarrhea, skin rash and weight loss. Because of this toxicity dose of Tagrisso was decreased to 40 mg. Follow-up CT scan showed significant increase in the right lower lobe lung mass with lymph node metastasis. There is a question that this may be 2nd primary friend then the upper lobe mass and recommend biopsy. Patient has disease progression while on Tagrisso. Biopsies from the right lower lobe lung nodule is positive for squamous cell carcinoma which is different disease then right upper lobe which was adenocarcinoma. She continued taking Tagrisso 40 mg with good tolerance. The right upper lobe mass hasresponded well to aggressive. She has a 2nd primary in the right lower lobe with the mediastinal lymph nodes metastasis. Because of the limited lung capacity radiation was not an option. Currently she is receiving combination of paclitaxel plus carboplatin and Keytruda. She is also continuing Tagrisso. Clinically she is doing well without any new symptoms of complain. She tolerated her 1st chemotherapy very well without any significant side effects toxicity. Her weight is stable and the labs are instable range with stable hemoglobin level. Discussed with the patient and about diagnosis reviewed all the available blood test resultwith them. PLAN: Continue current treatment. She will return to clinic for follow-up in 3 weeks. She is scheduled toreceive the last dose of Venofer today. She is receiving Venofer because of the low transferrin saturation. The patient voiced understanding of all of the above. All questions and concerns were addressed in an apparently satisfactory manner. Lisa Lopez MD (This note was completed using the dictation program Fluency Direct. As such, there may be misspellings, word substitutions, or other variations that should not change the essence of the clinical content of this encounter note. If there is need for further clarification, please direct questions to me.) documented in this encounter Nursing Notes * Wendi Richards CMA - 01/22/2024 9:50 AM EDT Patient identifed by name and birthdate Do you have any concerns about pain management for today's visit? No Living Will or Advance Directive for Health Care as noted on the problem list. [facility] is a way you can talk to your provider on line through e-mail. Would you like to sign up? I can activate it for you? NO Filed Vitals: 01/22/24 0949 BP: 135/69 Pulse: 93 Temp: 36.4 C (97.6 F) TempSrc: Tympanic SpO2: 93% Weight: 61.1 kg (134 lb 12.8 oz) Patient was instructed to not get up on the exam table/exam chair until directed and assisted by their provider; patient is to remain seated in the chair/ wheelchair/ exam table/ exam chair for fall prevention and safety reasons. Patient is aware to have assistance to step down off exam table/exam chair with personnel. Patient voiced full comprehension of instructions. documented in this encounter Plan of Treatment Upcoming Encounters Date Type Department Care Team (Late st Contact Info) Description 01/22/2024 10:30 AM EDT Hem/Onc Treatment Hematology/Oncology Treatment, [place] [address] [place] [id number] Kourtney, Chair 4 Hem Onc Scenery [address] [place] [address] Arrived 01/23/2024 10:00 AM EDT Laboratory Laboratory [facility] [place] [address] [place] [id number] Kourtney, Lab Scenery [address] [facility] [place] [address] 01/23/2024 11:00 AM EDT Hem/Onc Treatment Hematology/Oncology Treatment, [place] [address] [facility], [place] [id number] Kourtney, Chair 8 Hem Onc Scenery [address] [place] [address] 03/04/2024 9:45 AM EST Pharmacy Pharmacy Hematology Oncology [facility] [address] [place] [address] [facility], [facility] Hem/Onc [address] [place] [address] 03/23/2024 5:00 PM EST Office Visit Family Practice [address] [place] [address] Vidal Barba MD [address] [place] [address] Health Maintenance Due Date Last Done Comments [...] chemotherapy documented in this encounter Care Teams Face Burler Relationship Specialty Start Date End Date Vidal Barba MD [address] [facility] [place] [address] PCP - General Family Medicine 01/02/24 documented as of this encounter
--- OUTSIDE RECORDS SUMMARY | 2024-02-11 06:44 | External Medical Summary ---
Author Name Unknown Address Unknown Organization K09:[facility] [place] [id number] Laboratory Report Ordering Provider Test Date Status LEWIS OLIVA 01/16/2024 08:08:25 Final Observation Date Value Abnormality Reference (Units ) Status WBC, Total 01/16/2024 08:08:25 11.88 Above high normal 4 .00-10.80 (K/uL) Final RBC 01/16/2024 08:08:25 3.16 3.85-5.15 (M/uL) Final Hemoglobin 01/16/2024 08:08:25 9.1 Below low normal 12 .0-15.3 (g/dL) Final HCT 01/16/2024 08:08:25 27.9 Below low normal 36. 0-45.2 (%) Final MCV 01/16/2024 08:08:25 88.3 81.5-97.5 (fL) Final MCH 01/16/2024 08:08:25 28.8 27.0-34.0 (pg) Final MCHC 01/16/2024 08:08:25 32.6 32.0-36.0 (g/dL) Final RDW 01/16/2024 08:08:25 21.2 11.5-15.5 (%) Final Platelets 01/16/2024 08:08:25 288 140-400 (K /uL) Final MPV 01/16/2024 08:08:25 8.7 6.6-11.1 ( fL) Final Performing Location [facility] [place] [address]
--- OUTSIDE RECORDS SUMMARY | 2024-02-11 06:44 | External Medical Summary ---
Author Name Unknown Address Unknown Organization K09:[facility] [address] [place] [address] Laboratory Report Ordering Provider Test Date Status LEWIS OLIVA 01/16/2024 08:08:25 Final Observation Date Value Abnormality Reference (Units ) Status SYNC LEUKOCYTES IN BLOOD BY AUTOMATED COUNT 01/16/2024 08:08:25 11.88 Above high normal 4.00-10.80 (K/uL) Final Neutrophils/100 leukocytes in Blood by Manual count 01/16/2024 08:08:25 80.0 Above high normal 40.0-75.0 (%) Final Lymphocytes/100 leukocytes in Blood by Manual count 01/16/2024 08:08:25 11.0 Below low normal 18.0-42.0 (%) Final Monocytes/100 leukocytes in Blood by Manual count 01/16/2024 08:08:25 3.0 1.0-11.0 (%) Final Eosinophils/100 leukocytes in Blood by Manual count 01/16/2024 08:08:25 4.0 0.0-6.0 (%) Final Metamyelocytes/100 leukocytes in Blood by Manual count 01/16/2024 08:08:25 2.0 Above high normal <=0.0 (%) Final Neutrophils [#/volume] in Blood by Manual count 01/16/2024 08:08:25 9.50 Above high normal 1.80-7.70 (K/uL) Final Lymphocytes [#/volume] in Blood by Manual count 01/16/2024 08:08:25 1.31 1.00-4.80 (K/uL) Final Monocytes [#/volume] in Blood by Manual count 01/16/2024 08:08:25 0.36 0.00-1.10 (K/uL) Final Eosinophils [#/volume] in Blood by Manual count 01/16/2024 08:08:25 0.48 0.00-0.70 (K/uL) Final Metamyelocytes [#/volume] in Blood by Manual count 01/16/2024 08:08:25 0.24 Above high normal <=0.00 (K/uL) Final Nucleated erythrocytes/100 leukocytes [Ratio] in Blood by Automated count 01/16/2024 08:08:25 Final Neutrophils.hypersegmen joaquin [Presence] in Blood by Light microscopy 01/16/2024 08:08:25 Present Abnormal None Seen Final Performing Location [facility] [address] [place] [address]
--- OUTSIDE RECORDS SUMMARY | 2024-02-11 06:44 | External Medical Summary ---
Author Name Unknown Address Unknown Organization K09:[facility] [address] [place] [address] Laboratory Report Ordering Provider Test Date Status LEWIS OLIVA 01/16/2024 08:08:25 Final Observation Date Value Abnormality Reference (Units ) Status BUN 01/16/2024 08:08:25 39 Above high normal 6-20 (mg/dL) Final Creatinine 01/16/2024 08:08:25 1.7 Above high normal 0.5-1.0 (mg/dL) Final Glomerular filtration rate/1.73 sq M.predicted [Volume Rate/Area] in Serum, Plasma or Blood by Creatinine-based formula (CKD-EPI) 01/16/2024 08:08:25 32 Below low normal >=60 (mL/min) Final eGFR is calculated based on the CKD-EPI 2020 equation. Sodium 01/16/2024 08:08:25 130 Below low normal 135 -146 (mmol/L) Final Potassium 01/16/2024 08:08:25 4.9 3.5-5.1 (m mol/L) Final Cl 01/16/2024 08:08:25 93 Below low normal 98- 107 (mmol/L) Final CO2 01/16/2024 08:08:25 25 22-32 (mmo l/L) Final Anion gap 01/16/2024 08:08:25 12 7-15 (mmol /L) Final Glucose 01/16/2024 08:08:25 133 Above high normal 70 -120 (mg/dL) Final Albumin 01/16/2024 08:08:25 4.1 3.8-5.0 (g /dL) Final AST (Aspartate aminotransferase) 01/16/2024 08:08:25 12 10-35 (U/L) Fin al Alk Phos 01/16/2024 08:08:25 91 35-130 (U/ L) Final Bilirubin, Total 01/16/2024 08:08:25 0.3 <=1 .2 (mg/dL) Final Calcium 01/16/2024 08:08:25 10.0 8.4-10.2 ( mg/dL) Final Protein 01/16/2024 08:08:25 7.1 6.0-8.3 (g /dL) Final ALT (Alanine aminotransferase) 01/16/2024 08:08:25 5 Below low normal 10-35 (U/L) Final Performing Location [facility] [address] [place] [address]
--- OUTSIDE RECORDS SUMMARY | 2024-02-11 06:44 | External Medical Summary | Summary of Care ---
Author Name Unknown Organization [facility] Address [address] [place] [address] Phone [phone] Care Team Providers Care Feed Mill Operator Name Role Phone Vidal Barba MD Primary Care Provider [phone] Reason for Visit * Reason Comments Outpatient Testing Encounter Details Date Type Department Care Team ([facility] st Contact Info) Description 01/16/2024 7:20 AM EDT Laboratory Laboratory [facility] [address] [place] [phone] [place], Lab Scenery [address] [place] [address] Non-small cell cancer of right lung (HCC); [...] B, by GOLD 2017 classification ([facility]) Inhale 2 Puffs by mouth 4 times a day as needed for Wheezing. 18 g 4 08/16/2022 Active Additional Information Patient not taking.Reported on 10/30/2023 Budeson-Glycopyrrol- Formoterol 160-9-4.8 MCG/ACT Inhalation AerosolIndications:C OPD, group B, by GOLD 2017 classification ([facility]) Inhale 2 Puffs by mouth daily. [...] of right lung 01/29/2022 Unspecified atherosclerosis of [place] arteries of extremities, bilateral legs 12/27/2021 History [...] Care Team (Late st Contact Info) Description 01/16/2024 8:30 AM EDT Hem/Onc Treatment Hematology/Oncology Treatment, [place] [address] [place] [address] [place], Chair 9 Hem Onc Scenery [address] [place], [place] [address] Arrived 01/17/2024 9:30 AM EDT Pharmacy Pharmacy Hematology Oncology [facility] [address] [place] [address] [facility] [place] Hem/Onc [address] [place] [address] 01/22/2024 10:00 AM EDT Office Visit Hematology/Oncology [facility] [place] [address] [place] [phone] Lisa Lopez MD [address] [place] [address] 01/22/2024 10:30 AM EDT Hem/Onc Treatment Hematology/Oncology Treatment, [place] [address] [place], [place] [phone] Kourtney, Chair 4 Hem Onc Scenery [address] [place] [address] 03/23/2024 5:00 PM EST Office Visit [facility] [address] [place] [address] Vidal Barba MD [address] [place] [address] Pending Results Name Type Priority Associated Diagnoses Date /Time CBC WITH WBC DIFFERENTIAL Lab STAT Non-small cell cancer of right lung (HCC) Squamous cell carcinoma of right lung (HCC) Encounter for antineoplastic chemotherapy 01/16/2024 8:08 AM EDT COMPREHENSIVE METABOLIC PANEL Lab STAT Non-small cell cancer of right lung (HCC) Squamous cell carcinoma of right lung (HCC) Encounter for antineoplastic chemotherapy 01/16/2024 8:08 AM EDT TSH WITH FREE T4 IF INDICATED Lab Routine Non-small cell cancer of right lung (HCC) Squamous cell carcinoma of right lung (HCC) Encounter for antineoplastic chemotherapy 01/16/2024 8:08 AM EDT CBC Lab STAT Non-small cell cancer of right lung (HCC) Squamous cell carcinoma of right lung (HCC) Encounter for antineoplastic chemotherapy 01/16/2024 8:08 AM EDT DIFFERENTIAL, AUTOMATED Lab STAT Non-small cell cancer of right lung (HCC) Squamous cell carcinoma of right lung (HCC) Encounter for antineoplastic chemotherapy 01/16/2024 8:08 AM EDT Health Maintenance Due Date Last [...] Vaccine ( season) 2023 03/09/2021, 09/10/2020, 08/15/2020 GFR 07/13/2024 01/13/2024, 12/23, 01/01/2024, Additional history exists HbA1c 07/13/2024 01/13/2024, 08/23, 07/04/2023, Additional history exists AAA Monitoring 09/09/2024 09/10/2023, /11/2022, 11/24/2021, Additional history exists Mammogram 10/21/2024 10/22/2023, 09/23, 09/02/2019, Additional history exists B-12 12/24/2024 12/25/2023, 05/0 10/2022, 07/01/2017, Additional history exists O2 ASSESSMENT COMPLETED IN PAST YEAR FOR COPD 01/08/2025 01/09/2024 Albumin/Creatinine Ratio 01/12/2025 024, 09/11/2023, 04/29/2023, Additional history exists Hgb 01/12/2025 01/13/2024, 12/23, 01/01/2024, Additional history exists PTH 01/12/2025 01/13/2024, 08/23, 01/11/2023, Additional history exists Phosphate 01/12/2025 01/13/2024, 08/23, 02/05/2023, Additional history exists Colonoscopy 10/21/2028 10/21/2018, 04/03/2011 Colorectal Cancer Screening [...] chemotherapy documented in this encounter Care Teams Feed Mill Operator Relationship Specialty Start Date End Date Vidal Barba MD [address] [facility] [place] [address] PCP - General Family Medicine 01/02/24 documented as of this encounter
--- OUTSIDE RECORDS SUMMARY | 2024-02-11 06:44 | External Medical Summary | Summary of Care ---
Author Name Unknown Organization [facility] Address [address] [place] [address] Phone [phone] Care Team Providers Care Can Stacker Name Role Phone Vidal Barba MD Primary Care Provider [phone] Encounter Details Date Type Department Care Team (Late st Contact Info) Description 01/14/2024 Orders Only Hematology/Oncology Treatment, [place] [address] [place] [address] Lisa Lopez MD [address] [place] [address] Non-small cell cancer of right lung (HCC)*; Thrombocytopenia, congenital and hereditary (HCC); Erythrocytosis; Squamous cell carcinoma of right lung (HCC); [...] as of this encounter (statuses as of 01/14/2024) Medications Medication Sig Dispensed Refills Start Date [...] COPD, group B, by GOLD 2017 classification ([facility]) Inhale 2 Puffs by mouth 4 times a day as needed for Wheezing. 18 g 4 08/16/2022 Active Additional Information Patient not taking.Reported on 10/30/2023 Budeson-Glycopyrrol- Formoterol 160-9-4.8 MCG/ACT Inhalation AerosolIndications:C OPD, group B, by GOLD 2017 classification ([facility]) Inhale 2 Puffs by mouth [...] as of this encounter (statuses as of 01/14/2024) Active Problems Problem Noted Date Diagnosed Date [...] of right lung 01/29/2022 Unspecified atherosclerosis of [place] arteries of extremities, bilateral legs 12/27/2021 History [...] as of this encounter (statuses as of 01/14/2024) Resolved Problems Problem Noted Date Diagnosed Date [...] as of this encounter (statuses as of 01/14/2024) Immunizations Name Administration Dates Next Due COVID-19 [...] Care Team (Late st Contact Info) Description 01/15/2024 9:45 AM EDT Pharmacy Pharmacy Hematology Oncology [address] [address] [facility] [place], [facility] Hem/Onc [address] [place] [address] 01/16/2024 7:20 AM EDT Laboratory Laboratory [facility] [place] [address] [place] [phone] [place], Lab Scenery [address] [place] [address] 01/16/2024 8:30 AM EDT Hem/Onc Treatment [facility] [place] [address] [facility] [phone] [place], Chair 9 Hem Onc Scenery [address] [place] [address] 01/22/2024 10:00 AM EDT Office Visit Hematology/Oncology [facility] [place] [address] [place] [phone] Lisa Lopez MD [address] [place] [address] 01/22/2024 10:30 AM EDT Hem/Onc Treatment Hematology/Oncology [address], [place] [phone] [place], Chair 4 Hem Onc Scenery [address] [place] [address] 03/23/2024 5:00 PM EST Office Visit Family Practice [facility] [place] [address] [place] [address] Vidal Barba MD [address] [place] [address] Scheduled Orders Name Type Priority Associated Diagnoses Orde r Schedule CBC WITH WBC DIFFERENTIAL Lab STAT Non-small cell cancer of right lung (HCC) Squamous cell carcinoma of right lung (HCC) Encounter for antineoplastic chemotherapy Every Week for 24 Occurrences starting 01/14/2024 until 01/13/2025 COMPREHENSIVE METABOLIC PANEL Lab STAT Non-small cell cancer of right lung (HCC) Squamous cell carcinoma of right lung (HCC) Encounter for antineoplastic chemotherapy Every Week for 24 Occurrences starting 01/14/2024 until 01/13/2025 TSH WITH FREE T4 IF INDICATED Lab Routine Non-small cell cancer of right lung (HCC) Squamous cell carcinoma of right lung (HCC) Encounter for antineoplastic chemotherapy Every Week for 24 Occurrences starting 01/14/2024 until 01/13/2025 Health Maintenance Due Date Last Done Comments [...] 09/09/2024 09/10/2023, 10/24, 11/24/2021, Additional history exists PTH 09/10/2024 09/11/2023, 12/24, 10/09/2019 Mammogram 10/21/2024 10/22/2023, 09/23, 09/02/2019, Additional history exists B-12 12/24/2024 12/25/2023, 05/0 10/2022, 07/01/2017, Additional history exists O2 ASSESSMENT COMPLETED IN PAST YEAR FOR COPD 01/08/2025 01/09/2024 Albumin/Creatinine Ratio 01/12/2025 024, 09/11/2023, 04/29/2023, Additional history exists Hgb 01/12/2025 01/13/2024, 12/23, 01/01/2024, Additional history exists Phosphate 01/12/2025 01/13/2024, 08/23, [...] cell cancer of right lung (HCC)- Primary Thrombocytopenia, congenital and hereditary (HCC) Congenital and hereditary thrombocytopenic purpura Erythrocytosis Polycythemia, secondary Squamous cell carcinoma of right lung (HCC) Encounter for antineoplastic chemotherapy documented in this encounter Care Teams Can Stacker Relationship Specialty Start Date End Date Vidal Barba MD [address] [facility] [place] [address] PCP - General Family Medicine 01/02/24 documented as of this encounter
--- OUTSIDE RECORDS SUMMARY | 2024-02-11 06:44 | External Medical Summary | Summary of Care ---
Author Name Unknown Organization [facility] Address [address] [place] [address] Phone [phone] Care Team Providers Care Edge Blacker Name Role Phone Vidal Barba MD Primary Care Provider [phone] Encounter Details Date Type Department Care Team ([facility] st Contact Info) Description 01/16/2024 Orders Only Family Practice [facility] [address] [place] [address] Darnell Chan PA-C [address] [place] [address] Allergies Active Allergy Reactions Criticality Noted Date [...] - DILL[place]) Inhale 2 Puffs by mouth daily. Breztri [...] of right lung 01/29/2022 Unspecified atherosclerosis of [place] arteries of extremities, bilateral legs 12/27/2021 History [...] 03/01/2016 07/04/2016 Overview: Left second toe injury 10/15/16. Recurrent major depressive d isorder, in full [...] 8:30 AM EDT Hem/Onc Treatment Hematology/Oncology Treatment, [place] [address] [place] [phone] [place]ourt[place], Chair 9 Hem Onc Scenery [address] [place] [address] 01/17/2024 9:30 AM EDT Pharmacy Pharmacy Hematology Oncology [facility] [place] [address] [place] [address] [facility] [place] [place], [facility] Hem/Onc [address] [place] [address] 01/22/2024 10:00 AM EDT Office Visit Hematology/Oncology [facility] [address] [place] [facility] [place] [phone] Lisa Lopez MD [address] [place] [address] 01/22/2024 10:30 AM EDT Hem/Onc Treatment Hematology/Oncology Treatment, [place] [address] [place] [phone] Kourtney, Chair 4 Hem Onc Scenery [address] [facility] [address] 03/23/2024 5:00 PM EST Office Visit [facility] [address] [place] [address] Vidal Barba MD [address] [place] [address] Health Maintenance Due Date Last Done Comments [...] 10/24, 11/24/2021, Additional history exists PTH 09/10/2024 01/13/2024, 08/23, 01/11/2023, Additional history exists Mammogram 10/21/2024 10/22/2023, 09/23, [...] Not on filedocumented as of this encounter Procedures Procedure Name Priority Date/Time Associated Diagnosis Comments PTH Routine 01/13/2024 documented in this encounter Results * PTH (01/13/2024) PTH-OUTSIDE LAB 23.3 18.5 - 88.0 PG/ML OUTSIDE LAB (SEE SCANNED REPORT) Blood Venous blood specimen / Unknown 01/13/2024 Ihsan Padilla PA-C LAB BLOOD ORDERABLES OUTSIDE LAB (SEE SCANNED REPORT) documented in this encounter Care Teams Edge Blacker Relationship Specialty Start Date End Date Vidal Barba MD [address] [facility] [place] [address] PCP - General Family Medicine 01/02/24 documented as of this encounter
--- OUTSIDE RECORDS SUMMARY | 2024-02-11 06:44 | External Medical Summary ---
Author Name Unknown Address Unknown Organization K01:[facility] [place] [address] [place] [address] Laboratory Report Ordering Provider Test Date Status LEWIS OLIVA 01/16/2024 08:08:25 Final Observation Date Value Abnormality Reference (Units ) Status TSH 01/16/2024 08:08:25 3.49 0.27-4.20 (uIU/mL) Final Performing Location [facility] [place] [address] [place] [address]
--- OUTSIDE RECORDS SUMMARY | 2024-02-11 06:45 | External Medical Summary | Summary of Care ---
Author Name Unknown Organization [facility] Address [address] [place] [address] Phone [phone] Care Team Providers Care Poultry Packer Name Role Phone Vidal Barba MD Primary Care Provider [phone] Encounter Details Date Type Department Care Team (Late st Contact Info) Description 01/09/2024 Orders Only Hematology/Oncology [facility] [place] [address] [facility] [place] [address] Lisa Lopez MD [address] [place] [address] Allergies Active Allergy Reactions Criticality Noted Date [...] as of this encounter (statuses as of 01/09/2024) Medications Medication Sig Dispensed Refills Start Date [...] by GOLD 2017 classification ([facility]) Inhale 2 Puffs by mouth 4 times a day as needed for Wheezing. 18 g 4 08/16/2022 Active Additional Information Patient not taking.Reported on 10/30/2023 Budeson-Glycopyrrol- Formoterol 160-9-4.8 MCG/ACT Inhalation AerosolIndications:C OPD, group B, by GOLD 2017 classification ([facility]) Inhale 2 Puffs by mouth daily. [...] as of this encounter (statuses as of 01/09/2024) Active Problems Problem Noted Date Diagnosed Date [...] of right lung 01/29/2022 Unspecified atherosclerosis of [place] arteries of extremities, bilateral legs 12/27/2021 History [...] as of this encounter (statuses as of 01/09/2024) Resolved Problems Problem Noted Date Diagnosed Date [...] as of this encounter (statuses as of 01/09/2024) Immunizations Name Administration Dates Next Due COVID-19 [...] 9:45 AM EDT Pharmacy Pharmacy Hematology Oncology [facility] [address] [place] [address] [facility], [facility] Hem/Onc [address] [place] [address] 01/16/2024 7:20 AM EDT Laboratory Laboratory [facility] [address] [place], [place] [phone] [place], Lab Scenery [address] [place] [address] 01/16/2024 8:30 AM EDT [facility] [address] [place] [phone] Kourtney, Chair 9 Hem Onc Scenery [address] [facility] [place] [address] 01/22/2024 10:00 AM EDT Office Visit Hematology/Oncology [facility] [address] [place], [place] [phone] Lsia Lopez MD [address] [place] [address] 01/22/2024 10:30 AM EDT [facility] [address] [place] [phone] Kourtney, Chair 4 Hem Onc Scenery [address] [place], [place] [address] 03/23/2024 5:00 PM EST Office Visit Family Practice [address] [place] [address] Vidal Barba MD [address] [place] [address] Health Maintenance Due Date Last Done Comments [...] ( season) 2023 03/09/2021, 09/10/2020, 08/15/2020 HbA1c 03/12/2024 09/11/2023, 06/23, 10/30/2022, Additional history exists GFR 07/09/2024 01/09/2024, 1011/2023, 12/25/2023, Additional history exists AAA Monitoring 09/09/2024 09/10/2023, 10/24, 11/24/2021, Additional history exists Albumin/Creatinine Ratio 09/10/2024 024, 04/29/2023, 01/11/2023, Additional history exists PTH 09/10/2024 09/11/2023, 12/24, 10/09/2019 Phosphate 09/10/2024 09/11/2023, 01/23, 01/11/2023, Additional history exists Mammogram 10/21/2024 10/22/2023, 09/23, 09/02/2019, Additional history exists B-12 12/24/2024 12/25/2023, 050 10/2022, 07/01/2017, Additional history exists O2 ASSESSMENT COMPLETED IN PAST YEAR FOR COPD 12/31/2024 01/01/2024 Hgb 01/08/2025 01/09/2024, 11/2023, 12/25/2023, Additional history exists Colonoscopy 10/21/2028 10/21/2018, 04/03/2011 [...] filedocumented as of this encounter Care Teams Poultry Packer Relationship Specialty Start Date End Date Vidal Barba MD [address] [facility] [place] [address] PCP - General Family Medicine 01/02/24 documented as of this encounter
--- OUTSIDE RECORDS SUMMARY | 2024-02-11 06:45 | External Medical Summary | Summary of Care ---
Author Name Unknown Organization [facility] Address [address] [place] [address] Phone [phone] Care Team Providers Care Chemical Detection Expert Name Role Phone Vidal Barba MD Primary Care Provider [phone] Reason for Visit * Reason Comments IV Therapy Venofer Nurse Documentation Holding chemo today Encounter Details Date Type Department Care Team (Latest Contact Info) Description 01/09/2024 9:45 AM EDT Hem/Onc Treatment Hematology/Oncology Treatment, [address] [address] Kourtney, Chair 2 Hem On[address] [address] Anemia due to chronic renal failure treated [...] COPD, group B, by GOLD 2017 classification ([facility]) Inhale 2 Puffs by mouth 4 times a day as needed for Wheezing. 18 g 4 08/16/2022 Active Additional Information Patient not taking.Reported on 10/30/2023 Budeson-Glycopyrrol- Formoterol 160-9-4.8 MCG/ACT Inhalation AerosolIndications:C OPD, group B, by GOLD 2017 classification ([facility]) Inhale 2 Puffs by mouth daily. Breztri [...] complaints. Discharged in stable condition. * Tiffany Cohen RN - 01/09/2024 11:02 AM EDT Chair 2 Pt here for Venofer 2/ and scheduled for C2D1 chemo. Pt reports [...] 9:45 AM EDT Pharmacy Pharmacy Hematology Oncology [place] [address] [place] [address] [facility] [place] [facility] Hem/Onc [address] [place] [address] 01/16/2024 7:20 AM EDT Laboratory Laboratory [facility] [address] [place], [place] [phone] Kourt[place], Lab Scenery [address] [place], [place] [address] 01/16/2024 8:30 AM EDT Hem/Onc Treatment Hematology/Oncology Treatment, [place] [address] [facility], [place] [phone] Kourtney, Chair 9 Hem Onc Scenery [address] [place] [address] 01/22/2024 10:00 AM EDT Office Visit Hematology/Oncology [facility] [place] [address] [place], [place] [phone] Lisa Lopez MD [address] [place] [address] 01/22/2024 10:30 AM EDT Hem/Onc Treatment Hematology/Oncology Treatment, [place] [address] [facility], [place] [phone] Kourtney, Chair 4 Hem Onc Scenery [address] [place], [place] [address] 03/23/2024 5:00 PM EST [facility] [address] [place] [address] Vidal Barba MD [address] [place] [address] Health Maintenance Due Date Last Done Comments [...] 10/30/2022, Additional history exists GFR 07/09/2024 01/09/2024, 100 11/2023, 12/25/2023, Additional history exists AAA Monitoring 09/09/2024 09/10/2023, 10/24, 11/24/2021, Additional history exists Albumin/Creatinine Ratio 09/10/2024 024, 04/29/2023, 01/11/2023, Additional history exists PTH 09/10/2024 09/11/2023, 12/24, 10/09/2019 Phosphate 09/10/2024 09/11/2023, 01/23, 01/11/2023, Additional history exists Mammogram 10/21/2024 10/22/2023, 09/23, 09/02/2019, Additional history exists B-12 12/24/2024 12/25/2023, 05/0 10/2022, 07/01/2017, Additional history exists Hgb 01/08/2025 01/09/2024, 10/0 11/2023, 12/25/2023, Additional history exists O2 ASSESSMENT COMPLETED IN PAST YEAR FOR COPD 01/08/2025 01/09/2024 Colonoscopy 10/21/2028 10/21/2018, 04/03/2011 Colorectal Cancer Screening [...] PRN Other, Hypersensitivity Reaction, Starting on Staci 01/09/24 at 0946, Until Sat01/10/24 at 0945, For 24 hours EPINEPHrine 1 MG/ML inj 0.3 mg 0.3 mg, Intramuscular, ONCE PRN Other, Hypersensitivity Reaction or Anaphylaxis, Starting on Staci 01/09/24 at 0946, Until Sat01/10/24 at 0945, For 24 hours hEParin 100 UNIT/ML Lock Flush inj 500 Units 500 Units (5 mL), IV Lock, PRN Other, IV Flush, Starting on Staci 01/09/24 at 0946, Until Sat01/10/24 at 0945, For 24 hours, Do not flush if lock, PICC, or central line not in place; IV infusing or unable to flush. Given 01/09/2024 11:45 AM EDT 500 Units Hydrocortisone Sod Suc (PF) (Solu-Cortef) inj 100 mg 100 mg, IV Push, ONCE PRN Other, Hypersensitivity Reaction, Starting on Staci 01/09/24 at 0946, Until Sat01/10/24 at 0945, For 24 hours NSS infusion 500 mL, Intravenous, at 50 mL/hr, CONTINUOUS, Starting on Staci 10/17/24 at 1100, Until Sat01/09/24 at 2059 Start Infusion 01/09/2024 9:56 AM EDT 500 mL 50 mL/hr oxygen GAS Inhalation, OXYGEN, First dose on Sat01/09/24 at 1030, Until Discontinued, Device/Managed by: Low Flow Device, [...] Push, PRN Other, IV Flush, Starting on Sat01/09/24 at 0946, Until Sat01/10/24 at 0945, For 24 hours, Do not flush if lock, PICC, or central line not in place; IV infusing or unable to flush. Given 01/09/2024 11:45 AM EDT 10 mL Inactive Administered Medications - up to 3 most recent administrations Medication Order MAR Action Action Date Dose Rate Site Iron Sucrose (Venofer) 300 mg in NSS 250 mL ivpb 300 mg, IV Piggyback, ONCE, 1 dose, On Sat01/09/24 at 1130, Administer over 90 Minutes Start Infusion 01/09/2024 9:59 AM EDT 300 mg 180 mL/hr documented in this encounter Care Teams Chemical Detection Expert Relationship Specialty Start Date End Date Vidal Barba MD [address] [facility] [place] [address] PCP - General Family Medicine 01/02/24 documented as of this encounter
--- OUTSIDE RECORDS SUMMARY | 2024-02-11 06:45 | External Medical Summary | Summary of Care ---
Author Name Unknown Organization [facility] Address [address] [place] [address] Phone [phone] Care Team Providers Care Inspector Brake Lining Name Role Phone Vidal Barba MD Primary Care Provider [phone] Reason for Visit * Reason Comments Outpatient Testing Encounter Details Date Type Department Care Team ([facility] st Contact Info) Description 01/09/2024 8:50 AM EDT Laboratory Laboratory [facility] [address] [place] [address] [place], Lab Scenery [address] [place] [address] Non-small cell cancer of right lung (HCC) Allergies Active Allergy Reactions Criticality Noted Date [...] of right lung 01/29/2022 Unspecified atherosclerosis of [place] arteries of extremities, bilateral legs 12/27/2021 History [...] intraepithelial neoplasia grade 2 06/09/2010 10/13/2012 Overview: [facility] 02/26/11-BENIGN KNEE JOINT REPLACEMENT-LEFT 01/3106/09/2010 10/13/2012 [...] Team (Late st Contact Info) Description 01/09/2024 9:45 AM EDT Hem/Onc Treatment Hematology/Oncology Treatment, [place] [address] [place] [address] Kourtney, Chair 2 Hem Onc Scenery [address] [place] [address] Arrived 01/15/2024 9:45 AM EDT Pharmacy Pharmacy Hematology Oncology [facility], [place] [address] [place] [address] [facility] [place], [facility] Hem/Onc [address] [place] [address] 01/15/2024 1:45 PM EDT Hem/Onc Treatment [facility] [place] [facility] [phone] 01/22/2024 10:00 AM EDT Office Visit Hematology/Oncology [facility] [place] [address] [facility] [place] [phone] Lisa Lopez MD [address] [facility] [place] [address] 01/22/2024 10:30 AM EDT Hem/Onc Treatment Hematology/Oncology Treatment [place] [address] [facility], [place] [phone] Kourtney, Chair 4 Hem Onc [address] [place] [address] 03/23/2024 5:00 PM EST Office Visit [facility] [address] [place] [address] Vidal Barba MD [address] [place] [address] Pending Results Name Type Priority Associated Diagnoses Date /Time CBC WITH WBC DIFFERENTIAL Lab STAT Non-small cell cancer of right lung (HCC) 01/09/2024 8:47 AM EDT COMPREHENSIVE METABOLIC PANEL Lab STAT Non-small cell cancer of right lung (HCC) 01/09/2024 8:47 AM EDT TSH WITH FREE T4 IF INDICATED Lab STAT Non-small cell cancer of right lung (HCC) 01/09/2024 8:47 AM EDT CBC Lab STAT Non-small cell cancer of right lung (HCC) 01/09/2024 8:47 AM EDT DIFFERENTIAL, AUTOMATED Lab STAT Non-small cell cancer of right lung (HCC) 01/09/2024 8:47 AM EDT Health Maintenance Due Date Last [...] 09/11/2023, 06/23, 10/30/2022, Additional history exists GFR 07/01/2024 01/01/2024, 1004/2023, 12/03/2023, Additional history exists AAA Monitoring 09/09/2024 09/10/2023, 10/24, 11/24/2021, Additional history exists Albumin/Creatinine Ratio 09/10/2024 024, 04/29/2023, 01/11/2023, Additional history exists PTH 09/10/2024 09/11/2023, 12/24, 10/09/2019 Phosphate 09/10/2024 09/11/2023, 01/23, 01/11/2023, Additional history exists Mammogram 10/21/2024 10/22/2023, 09/23, 09/02/2019, Additional history exists B-12 12/24/2024 12/25/2023, 050 10/2022, 07/01/2017, Additional history exists Hgb 12/31/2024 01/01/2024, 04/2023, 12/03/2023, Additional history exists O2 ASSESSMENT COMPLETED IN PAST YEAR FOR COPD 12/31/2024 01/01/2024 Colonoscopy 10/21/2028 10/21/2018, 04/03/2011 Colorectal Cancer Screening [...] Non-small cell cancer of right lung (HCC) documented in this encounter Care Teams Inspector Brake Lining Relationship Specialty Start Date End Date Vidal Barba MD [address] [facility] [place] [address] PCP - General Family Medicine 01/02/24 documented as of this encounter
--- OUTSIDE RECORDS SUMMARY | 2024-02-11 06:45 | External Medical Summary | Summary of Care ---
Author Name Unknown Organization [facility] Address [address] [place] [address] Phone [phone] Care Team Providers Care Waste Recycler Name Role Phone Vidal Barba MD Primary Care Provider [phone] Encounter Details Date Type Department Care Team ([facility] st Contact Info) Description 01/14/2024 Orders Only Family Practice [facility] [address] [place] [address] Darnell Chan PA-C [address] [place] [address] Allergies Active Allergy Reactions Criticality [...] group B, by GOLD 2017 classification ([facility]) Inhale 2 Puffs by mouth 4 times a day as needed for Wheezing. 18 g 4 08/16/2022 Active Additional Information Patient not taking.Reported on 10/30/2023 Budeson-Glycopyrrol- Formoterol 160-9-4.8 MCG/ACT Inhalation AerosolIndications:C OPD, group B, by GOLD 2017 classification ([facility]) Inhale 2 Puffs by mouth daily. [...] of right lung 01/29/2022 Unspecified atherosclerosis of [place] arteries of extremities, bilateral legs 12/27/2021 History [...] 9:45 AM EDT Pharmacy Pharmacy Hematology Oncology [facility] [address] [place] [address] [facility] [place] Hem/Onc [address] [place] [address] 01/16/2024 7:20 AM EDT Laboratory Laboratory [facility] [address] [place], [place] [phone] Kourtney, Lab Scenery [address] [place], [place] [address] 01/16/2024 8:30 AM EDT Hem/Onc Treatment Hematology/Oncology Treatment, [place] 200 [facility], [place] [phone] Kourtney, Chair 9 Hem Onc Scenery [address] [place], [place] [address] 01/22/2024 10:00 AM EDT Office Visit Hematology/Oncology [facility] [address] [place], [place] [phone] Lisa Lopez MD [address] [place] [address] 01/22/2024 10:30 AM EDT Hem/Onc Treatment Hematology/Oncology Treatment, [place] [address] [facility], [place] [phone] Kourtney, Chair 4 Hem Onc Scenery [address] [place], [place] [address] 03/23/2024 5:00 PM EST Office Visit Family Practice [address] [place] [address] Vidal Barba MD [address] [place] [address] Health Maintenance Due Date Last Done Comments [...] Nephrology Referral 08/14/2023 08/13/2022 COVID-19 Vaccine ( - season) 2023 03/09/2021, 09/10/2020, 08/15/2020 HbA1c 03/12/2024 01/13/2024, 08/23, 07/04/2023, Additional history exists GFR 07/09/2024 01/13/2024, 12/23, 01/01/2024, Additional history exists AAA Monitoring 09/09/2024 09/10/2023, 10/24, 11/24/2021, Additional history exists Albumin/Creatinine Ratio 09/10/2024 024, 04/29/2023, 01/11/2023, Additional history exists PTH 09/10/2024 09/11/2023, 12/24, 10/09/2019 Phosphate 09/10/2024 01/13/2024, 08/23, 02/05/2023, Additional history exists Mammogram 10/21/2024 10/22/2023, 09/23, 09/02/2019, Additional history exists B-12 12/24/2024 12/25/2023, 05/0 10/2022, 07/01/2017, Additional history exists Hgb 01/08/2025 01/13/2024, 12/23, 01/01/2024, Additional history exists O2 ASSESSMENT COMPLETED IN [...] Procedure Name Priority Date/Time Associated Diagnosis Comments CHEMISTRY-OUTSIDE Routine 01/13/2024 documented in this encounter Results * (ABNORMAL) CHEMISTRY-OUTSIDE (01/13/2024) Not all results display below - see scan for full detail OUTSIDE LAB (SEE SCANNED REPORT) Comment:SCAN INCLUDES - CBC, UA, VIT D, HBA1C, RENAL FUNCTION CREATININE 1.60(A) 0.40 - 1.50 MG/DL OUTSIDE LAB (SEE SCANNED REPORT) EGFR 34(L) >=60 ML/MIN/1.73M 2 OUTSIDE LAB (SEE SCANNED REPORT) POTASSIUM 4.1 3.6 - 5.0 MMOL/L OUTSIDE LAB (SEE SCANNED REPORT) GLUCOSE 121(A) 65 - 110 MG/DL OUTSIDE LAB (SEE SCANNED REPORT) HOURS FASTING OUTSID E LAB (SEE SCANNED REPORT) TRIGLYCERIDES-OU TSIDE LAB OUTSIDE LAB (SEE SCANNED REPORT) CHOLESTEROL-OUTS TOM LAB OUTSIDE LAB (SEE SCANNED REPORT) HDL-OUTSIDE LAB OUTS TOM LAB (SEE SCANNED REPORT) CHOL/HDL RATIO-OUTSIDE LAB OUTSIDE LAB (SEE SCANNED REPORT) LDL (CALCULATED)-OUT SIDE LAB OUTSIDE LAB (SEE SCANNED REPORT) LDL (DIRECT MEASURE)-OUTSIDE LAB OUTSIDE LAB (SEE SCANNED REPORT) HEMOGLOBIN, B7X-AYPMKOT LAB 5.8(A) 3.8 - 5.6 % OUTSIDE LAB (SEE SCANNED REPORT) PHOSPHORUS-OUTSI DE LAB 3.0 3.0 - 4.9 MG/DL OUTSIDE LAB (SEE SCANNED REPORT) PTH-OUTSIDE LAB OUTS TOM LAB (SEE SCANNED REPORT) MICROALBUMIN RATIO-OUTSIDE LAB OUTSIDE LAB (SEE SCANNED REPORT) PROTEIN, UA-OUTSIDE LAB NEGATIVE NEGATIVE OUTSIDE LAB (SEE SCANNED REPORT) HGB 9.2(A) 12.0 - 16.0 GM/DL OUTSIDE LAB (SEE SCANNED REPORT) 01/13/2024 Ihsan Padilla PA-C LABORATORY OUTSIDE LAB (SEE SCANNED REPORT) documented in this encounter Care Teams Waste Recycler Relationship Specialty Start Date End Date Vidal Barba MD [address] [facility] [place] [address] PCP - General Family Medicine 01/02/24 documented as of this encounter
--- OUTSIDE RECORDS SUMMARY | 2024-02-11 06:45 | External Medical Summary ---
Author Name Unknown Address Unknown Organization [id number]:[facility] [place] [address] Laboratory Report Ordering Provider Test Date Status LEWIS OLIVA 01/09/2024 08:47:54 Final Observation Date Value Abnormality Reference (Units ) Status BUN 01/09/2024 08:47:54 35 Above high normal 6-20 (mg/dL) Final Creatinine 01/09/2024 08:47:54 1.6 Above high normal 0.5-1.0 (mg/dL) Final Glomerular filtration rate/1.73 sq M.predicted [Volume Rate/Area] in Serum, Plasma or Blood by Creatinine-based formula (CKD-EPI) 01/09/2024 08:47:54 35 Below low normal >=60 (mL/min) Final eGFR is calculated based on the CKD-EPI 2020 equation. Sodium 01/09/2024 08:47:54 131 Below low normal 135 -146 (mmol/L) Final Potassium 01/09/2024 08:47:54 5.0 3.5-5.1 (m mol/L) Final Cl 01/09/2024 08:47:54 95 Below low normal 98- 107 (mmol/L) Final CO2 01/09/2024 08:47:54 22 22-32 (mmo l/L) Final Anion gap 01/09/2024 08:47:54 14 7-15 (mmol /L) Final Glucose 01/09/2024 08:47:54 202 Above high normal 70 -120 (mg/dL) Final Albumin 01/09/2024 08:47:54 4.4 3.8-5.0 (g /dL) Final AST (Aspartate aminotransferase) 01/09/2024 08:47:54 12 10-35 (U/L) Fin al Alk Phos 01/09/2024 08:47:54 94 35-130 (U/ L) Final Bilirubin, Total 01/09/2024 08:47:54 0.2 <=1 .2 (mg/dL) Final Calcium 01/09/2024 08:47:54 10.1 8.4-10.2 ( mg/dL) Final Protein 01/09/2024 08:47:54 7.1 6.0-8.3 (g /dL) Final ALT (Alanine aminotransferase) 01/09/2024 08:47:54 <5 Below low normal 10-35 (U/L) Final Performing Location [facility] [place] [address]
--- OUTSIDE RECORDS SUMMARY | 2024-02-11 06:45 | External Medical Summary ---
Author Name Unknown Address Unknown Organization [id number]:[facility] [address] [place] [address] Laboratory Report Ordering Provider Test Date Status LEWIS OLIVA 01/09/2024 08:47:54 Final Observation Date Value Abnormality Reference (Units ) Status SYNC LEUKOCYTES IN BLOOD BY AUTOMATED COUNT 01/09/2024 08:47:54 7.26 4.00-10.80 (K/uL) Final Neutrophils/100 leukocytes in Blood by Manual count 01/09/2024 08:47:54 89.0 Above high normal 40.0-75.0 (%) Final Lymphocytes/100 leukocytes in Blood by Manual count 01/09/2024 08:47:54 9.0 Below low normal 18.0-42.0 (%) Final Monocytes/100 leukocytes in Blood by Manual count 01/09/2024 08:47:54 1.0 1.0-11.0 (%) Final Metamyelocytes/100 leukocytes in Blood by Manual count 01/09/2024 08:47:54 1.0 Above high normal <=0.0 (%) Final Neutrophils [#/volume] in Blood by Manual count 01/09/2024 08:47:54 6.46 1.80-7.70 (K/uL) Final Lymphocytes [#/volume] in Blood by Manual count 01/09/2024 08:47:54 0.65 Below low normal 1.00-4.80 (K/uL) Final Monocytes [#/volume] in Blood by Manual count 01/09/2024 08:47:54 0.07 0.00-1.10 (K/uL) Final Metamyelocytes [#/volume] in Blood by Manual count 01/09/2024 08:47:54 0.07 Above high normal <=0.00 (K/uL) Final Nucleated erythrocytes/100 leukocytes [Ratio] in Blood by Automated count 01/09/2024 08:47:54 Final Acanthocytes [Presence] in Blood by Light microscopy 01/09/2024 08:47:54 Moderate Abnormal None Seen Final Performing Location [facility] [address] [place] [address]
--- OUTSIDE RECORDS SUMMARY | 2024-02-11 06:45 | External Medical Summary | Summary of Care ---
Author Name Unknown Organization [facility] Address [address] [place] [address] Phone [phone] Care Team Providers Care Book Jogger Name Role Phone Vidal Barba MD Primary Care Provider [phone] Encounter Details Date Type Department Care Team (Late st Contact Info) Description 01/09/2024 Orders Only Hematology/Oncology [facility] [place] [address] [place] [address] Lisa Lopez MD [address] [place] [address] Allergies Active Allergy Reactions Criticality Noted Date [...] B, by GOLD 2017 classification ([facility]) Inhale 2 Puffs by mouth 4 times a day as needed for Wheezing. 18 g 4 08/16/2022 Active Additional Information Patient not taking.Reported on 10/30/2023 Budeson-Glycopyrrol- Formoterol 160-9-4.8 MCG/ACT Inhalation AerosolIndications:C OPD, group B, by GOLD 2017 classification ([facility]) Inhale 2 Puffs by mouth [...] of right lung 01/29/2022 Unspecified atherosclerosis of [place] arteries of extremities, bilateral legs 12/27/2021 History [...] 9:45 AM EDT Pharmacy Pharmacy Hematology Oncology [facility] [address] [place] [address] [facility] [place] Hem/Onc [address] [place] [address] 01/16/2024 7:20 AM EDT Laboratory Laboratory [facility] [address] [place], [place] [phone] [place], Lab Scenery [address] [place] [address] 01/16/2024 8:30 AM EDT [facility] [address] [place] [phone] Kourtney, Chair 9 Hem Onc Scenery [address] [place] [address] 01/22/2024 10:00 AM EDT Office Visit Hematology/Oncology [facility] [address] [place], [place] [phone] Lisa Lopez MD [address] [place] [address] 01/22/2024 10:30 AM EDT Hem[facility] [address] [place] [phone] Kourtney, Chair 4 Hem Onc Scenery [address] [place], [place] [address] 03/23/2024 5:00 PM EST Office Visit Family Practice [address] [place] [address] Vidal Barba MD [address] [place] [address] Health Maintenance Due Date Last Done Comments [...] filedocumented as of this encounter Care Teams Book Jogger Relationship Specialty Start Date End Date Vidal Barba MD [address] [facility] [place] [address] PCP - General Family Medicine 01/02/24 documented as of this encounter
--- OUTSIDE RECORDS SUMMARY | 2024-02-11 06:45 | External Medical Summary ---
Author Name Unknown Address Unknown Organization K01:[facility] - [address] [place] [address] Laboratory Report Ordering Provider Test Date Status LEWIS OLIVA 01/09/2024 08:47:54 Final Observation Date Value Abnormality Reference (Units ) Status TSH 01/09/2024 08:47:54 1.16 0.27-4.20 (uIU/mL) Final Performing Location [facility] - [address] [place] [address]
--- OUTSIDE RECORDS SUMMARY | 2024-02-11 06:45 | External Medical Summary | Summary of Care ---
Author Name Unknown Organization [facility] Address [address] [place] [address] Phone [phone] Care Team Providers Care Filling Machine Set Up Mechanic Name Role Phone Vidal Barba MD Primary Care Provider [phone] Encounter Details Date Type Department Care Team ([facility] st Contact Info) Description 01/14/2024 Orders Only Family Practice [facility] [address] [place] [address] Darnell Chan PA-C [address] [place] [address] Allergies Active Allergy Reactions Criticality [...] - MARION) Inhale 2 Puffs by mouth daily. Breztri [...] of right lung 01/29/2022 Unspecified atherosclerosis of [place] arteries of extremities, bilateral legs 12/27/2021 History [...] 9:45 AM EDT Pharmacy Pharmacy Hematology Oncology [facility] [address] [place] [address] [facility], [facility] Hem/Onc [address] [place] [address] 01/16/2024 7:20 AM EDT Laboratory Laboratory [facility] [address] [place], [place] [phone] [place], Lab Scenery [address] [place], [place] [address] 01/16/2024 8:30 AM EDT Hem/Onc Treatment Hematology/Oncology Treatment, [place] 200 [facility], [place] [phone] Kourtney, Chair 9 Hem Onc Scenery [address] [place], [place] [address] 01/22/2024 10:00 AM EDT Office Visit Hematology/Oncology [facility] [address] [place], [place] [phone] Lisa Lopez MD [address] [place] [address] 01/22/2024 10:30 AM EDT Hem/Onc Treatment Hematology/Oncology Treatment, [place] [address] [facility], [place] [phone] Kourtney, Chair 4 Hem Onc Scenery [address] [place], [place] [address] 03/23/2024 5:00 PM EST Office Visit Family Practice [address] [place] [address] Vidal Barba MD [address] [place] [address] Health Maintenance Due Date Last Done Comments [...] Additional history exists Albumin/Creatinine Ratio 09/10/2024 024, 09/11/2023, 04/29/2023, Additional history exists PTH 09/10/2024 09/11/2023, 12/24, 10/09/2019 Mammogram 10/21/2024 10/22/2023, 09/23, 09/02/2019, Additional history exists B-12 12/24/2024 12/25/2023, 05/0 10/2022, 07/01/2017, Additional history exists O2 ASSESSMENT COMPLETED IN PAST YEAR FOR COPD 01/08/2025 01/09/2024 Hgb 01/12/2025 01/13/2024, 12/23, 01/01/2024, Additional history [...] 01/13/2024 documented in this encounter Results * CHEMISTRY-OUTSIDE (01/13/2024) Not all results display below - see scan for full detail OUTSIDE LAB (SEE SCANNED REPORT) Comment:SCAN INCLUDES - MICR OALB/CREAT RATIO CREATININE OUTSIDE L AB (SEE SCANNED REPORT) EGFR OUTSIDE LA B (SEE SCANNED REPORT) POTASSIUM OUTSIDE LA B (SEE SCANNED REPORT) GLUCOSE OUTSIDE LA B (SEE SCANNED REPORT) HOURS FASTING OUTSID E LAB (SEE SCANNED REPORT) TRIGLYCERIDES-OUT SIDE LAB OUTSIDE LAB (SEE SCANNED REPORT) CHOLESTEROL-OUTSI DE LAB OUTSIDE LAB (SEE SCANNED REPORT) HDL-OUTSIDE LAB OUTS TOM LAB (SEE SCANNED REPORT) CHOL/HDL RATIO-OUTSIDE LAB OUTSIDE LA B (SEE SCANNED REPORT) LDL (CALCULATED)-OUTS TOM LAB OUTSIDE LAB (SEE SCANNED REPORT) LDL (DIRECT MEASURE)-OUTSIDE LAB OUTSIDE LAB (SEE SCANNED REPORT) HEMOGLOBIN, L2P-GXMPPCC LAB OUTSIDE LAB (SEE SCANNED REPORT) PHOSPHORUS-OUTSID E LAB OUTSIDE LAB (SEE SCANNED REPORT) PTH-OUTSIDE LAB OUTS TOM LAB (SEE SCANNED REPORT) MICROALBUMIN RATIO-OUTSIDE LAB 13.2 0.0 - 30.0 MG/GM CR OUTSIDE LAB (SEE SCANNED REPORT) PROTEIN, UA-OUTSIDE LAB OUTSIDE LAB (SEE SCANNED REPORT) HGB OUTSIDE LA B (SEE SCANNED REPORT) 01/13/2024 Ihsan Padilla PA-C LABORATORY OUTSIDE LAB (SEE SCANNED REPORT) documented in this encounter Care Teams Filling Machine Set Up Mechanic Relationship Specialty Start Date End Date Vidal Barba MD [address] [facility] [place] [address] PCP - General Family Medicine 01/02/24 documented as of this encounter
--- OUTSIDE RECORDS SUMMARY | 2024-02-11 06:45 | External Medical Summary | Summary of Care ---
Author Name Unknown Organization [facility] Address [address] [place] [address] Phone [phone] Care Team Providers Care Varnish Supervisor Name Role Phone Vidal Barba MD Primary Care Provider [phone] Reason for Visit * Reason Comments Outpatient Testing Encounter Details Date Type Department Care Team ([facility] st Contact Info) Description 01/09/2024 8:50 AM EDT Laboratory Laboratory [facility] [address] [place] [address] [place], Lab Scenery [address] [place] [address] Non-small cell cancer of right lung (HCC) [...] of right lung 01/29/2022 Unspecified atherosclerosis of [place] arteries of extremities, bilateral legs 12/27/2021 History [...] intraepithelial neoplasia grade 2 06/09/2010 10/13/2012 Overview: [facility] 02/26/11-BENIGN KNEE JOINT REPLACEMENT-LEFT 01/3106/09/2010 10/13/2012 Dyslipidemia, [...] 9:45 AM EDT Hem/Onc Treatment Hematology/Oncology Treatment, [place] [address] [place] [address] Kourtney, Chair 2 Hem Onc Scenery [address] [place] [address] Arrived 01/15/2024 9:45 AM EDT Pharmacy Pharmacy Hematology Oncology [facility] [place] [address] [place] [address] [facility] Hem/Onc [address] [place] [address] 01/15/2024 1:45 PM EDT Hem/Onc Treatment [facility] [place] [facility] [phone] 01/22/2024 10:00 AM EDT Office Visit Hematology/Oncology [facility] [place] 200 [facility] [place] [phone] Lisa Lopez MD [address] [facility] [place] [address] 01/22/2024 10:30 AM EDT Hem/Onc Treatment Hematology/Oncology Treatment [place] [address] [facility], [place] [phone] Kourtney, Chair 4 Hem On[address] [place] [address] 03/23/2024 5:00 PM EST Office Visit [facility] [address] [place] [address] Vidal Barba MD [address] [place] [address] Pending Results Name Type Priority Associated Diagnoses [...] (HCC) documented in this encounter Care Teams Varnish Supervisor Relationship Specialty Start Date End Date Vidal Barba MD [address] [facility] [place] [address] PCP - General Family Medicine 01/02/24 documented as of this encounter
--- OUTSIDE RECORDS SUMMARY | 2024-02-11 06:45 | External Medical Summary ---
Author Name Unknown Address Unknown Organization K09:[facility] [place] [address] Laboratory Report Ordering Provider Test Date Status LEWIS OLIVA 01/09/2024 08:47:54 Final Observation Date Value Abnormality Reference (Units ) Status WBC, Total 01/09/2024 08:47:54 7.26 4.00-10.8 0 (K/uL) Final RBC 01/09/2024 08:47:54 3.06 3.85-5.15 (M/uL) Final Hemoglobin 01/09/2024 08:47:54 8.6 Below low normal 12 .0-15.3 (g/dL) Final HCT 01/09/2024 08:47:54 26.6 Below low normal 36. 0-45.2 (%) Final MCV 01/09/2024 08:47:54 86.9 81.5-97.5 (fL) Final MCH 01/09/2024 08:47:54 28.1 27.0-34.0 (pg) Final MCHC 01/09/2024 08:47:54 32.3 32.0-36.0 (g/dL) Final RDW 01/09/2024 08:47:54 20.4 11.5-15.5 (%) Final Platelets 01/09/2024 08:47:54 413 Above high normal 14 0-400 (K/uL) Final MPV 01/09/2024 08:47:54 8.5 6.6-11.1 ( fL) Final Performing Location [facility] [place] [address]
--- OUTSIDE RECORDS SUMMARY | 2024-02-11 06:46 | External Medical Summary | Summary of Care ---
Author Name Unknown Organization [facility] Address [address] [place] [address] Phone [phone] Care Team Providers Care Trouble Locater Name Role Phone Vidal Barba MD Primary Care Provider [phone] Reason for Visit * Reason Onset Date Comments Advice 12/30/2023 Encounter Details Date Type Department Care Team (Late st Contact Info) Description 12/30/2023 Telephone Hematology/Oncology [facility] [place] [address] [facility] [place] [address] Lisa Lopez MD [address] [place] [address] Advice Allergies Active Allergy Reactions Criticality Noted Date [...] as of this encounter (statuses as of 01/07/2024) Medications Medication Sig Dispensed Refills Start Date [...] COPD, group B, by GOLD 2017 classification ([facility]) Inhale 2 Puffs by mouth 4 times a day as needed for Wheezing. 18 g 4 08/16/2022 Active Additional Information Patient not taking.Reported on 10/30/2023 Budeson-Glycopyrrol- Formoterol 160-9-4.8 MCG/ACT Inhalation AerosolIndications:C OPD, group B, by GOLD 2017 classification ([facility]) Inhale 2 Puffs by mouth daily. [...] as of this encounter (statuses as of 01/07/2024) Active Problems Problem Noted Date Diagnosed Date [...] of right lung 01/29/2022 Unspecified atherosclerosis of [place] arteries of extremities, bilateral legs 12/27/2021 History [...] as of this encounter (statuses as of 01/07/2024) Resolved Problems Problem Noted Date Diagnosed Date [...] as of this encounter (statuses as of 01/07/2024) Immunizations Name Administration Dates Next Due COVID-19 [...] on file documented as of this encounter Miscellaneous Notes * Telephone Encounter - Thai Martinez, KRISTA - 01/07/2024 9:46 AM EDT Per pharmacy note from yesterday, they spoke with patient and advised that she is to continue Tagrisso. * Telephone Encounter - Karina Yu RN - 01/07/2024 7:42 AM EDT Per staff message from Dr Lopez, patient to continue both tagrisso and keytruda/ carbo/ taxol. * Telephone Encounter - Karina Yu RN - 01/06/2024 9:[address] Lopez: please confirm that patient is to STOP tagrisso since she is now on keytruda, carboplatin, taxol * Telephone Encounter - Thia Martinez RN - 12/30/2023 11:36 AM EDT Called patient and advised to hold Tagrisso until Dr. Lopez returns so he may review and advise if she should continue the medication. MTM- fyi * Telephone Encounter - Thai Martinez RN - 12/30/2023 11:04 AM EDT It looks like from VON 11/26 and 12/25 that patient was supposed to continue on Tagrisso 40mg. Dr. Lopez/Keily- can you confirm if patient is to still continue this medication. She is currently receiving Carbo/Taxol/Pembro as well. Thank you. MTM- FYI * Telephone Encounter - Chayo Jameson OSA - 12/30/2023 10:46 AM EDT Wanting to know if she is to take a chemo pill even though she is coming in for a chemo treatment on Saturday. She called pharmacy and they stated that the chemo pill was cancelled. So she just wanted to verify. Can anyone assist? documented in this encounter Plan of Treatment Upcoming Encounters Date Type Department Care Team (Late st Contact Info) Description 01/08/2024 1:30 PM EDT Pharmacy Pharmacy Hematology Oncology [facility] [place] [address] [place] [address] [facility], [facility] Hem/Onc [address] [place] [address] 01/09/2024 9:45 AM EDT Hem/Onc Treatment Hematology/Oncology Treatment, [place] 200 [place] [phone] Kourtney, Chair 2 Hem Onc Scenery [address] [facility] [place] [address] 01/15/2024 1:45 PM EDT Hem/Onc Treatment Hematology/Oncology Treatment, [address] [place] [phone] 01/22/2024 10:00 AM EDT Office Visit Hematology/Oncology [facility] [address] [place] [phone] Lisa Lopez MD [address] [facility] [place] [address] 01/22/2024 10:30 AM EDT Hem/Onc Treatment Hematology/Oncology Treatment, [address] [place] [phone] Kourtney, Chair 4 Hem Onc [address] [place] [address] 03/23/2024 5:00 PM EST Office Visit Family Practice [address] [place] [address] Vidal Barba MD [address] [place] [address] Health Maintenance Due Date Last Done Comments [...] 10/30/2022, Additional history exists GFR 07/01/2024 01/01/2024, 04/2023, 12/03/2023, Additional history exists AAA Monitoring 09/09/2024 09/10/2023, 10/24, 11/24/2021, Additional history exists Albumin/Creatinine Ratio 09/10/2024 024, 04/29/2023, 01/11/2023, Additional history exists PTH 09/10/2024 09/11/2023, 12/24, 10/09/2019 Phosphate 09/10/2024 09/11/2023, 01/23, 01/11/2023, Additional history exists Mammogram 10/21/2024 10/22/2023, 09/23, 09/02/2019, Additional history exists B-12 12/24/2024 12/25/2023, 05/0 10/2022, 07/01/2017, Additional history exists Hgb 12/31/2024 01/01/2024, 1004/2023, 12/03/2023, Additional history exists O2 ASSESSMENT COMPLETED [...] filedocumented as of this encounter Care Teams Trouble Locater Relationship Specialty Start Date End Date Vidal Barba MD [address] [facility] [place] [address] PCP - General Family Medicine 01/02/24 documented as of this encounter
--- OUTSIDE RECORDS SUMMARY | 2024-02-11 06:46 | External Medical Summary | Summary of Care ---
Author Name Unknown Organization [facility] Address [address] [place] [address] Phone [phone] Care Team Providers Care Powderer Name Role Phone Vidal Barba MD Primary Care Provider [phone] Reason for Visit * Reason Onset Date Comments Advice 12/30/2023 Encounter Details Date Type Department Care Team (Late st Contact Info) Description 12/30/2023 Telephone Hematology/Oncology [facility] [place] 200 [facility] [place] [address] Lisa Lopez MD [address] [place] [address] Advice Allergies Active Allergy Reactions Criticality Noted [...] of right lung 01/29/2022 Unspecified atherosclerosis of [place] arteries of extremities, bilateral legs 12/27/2021 History [...] chest wall. Removed 01/28/19. Chronic fatigue 03/01/2016 OSLITARIO (generalized anxiety disorder) 11/22/2015 Irritable bowel syndrome [...] encounter Miscellaneous Notes * Telephone Encounter - Karina Yu RN - 01/07/2024 7:42 AM EDT Per staff message from Dr Lopez, patient to continue both tagrisso and keytruda/ carbo/ taxol. * Telephone Encounter - Karina Yu RN - 01/06/2024 9:[address] Lopez: please confirm that patient is to STOP tagrisso since she is now on keytruda, carboplatin, taxol * Telephone Encounter - Thai Martinez RN - 12/30/2023 11:36 AM EDT Called patient and advised to hold Tagrisso until Dr. Lopez returns so he may review and advise if she should continue the medication. MT- fyi * Telephone Encounter - Thai Martinez RN - 12/30/2023 11:04 AM EDT It looks like from [facility]ON 11/26 and 12/25 that patient was supposed to continue on Tagrisso 40mg. Dr. Lopez/Keily- can you confirm if patient is to still continue this medication. She is currently receiving Carbo/Taxol/Pembro as well. Thank you. MT- FYI * Telephone Encounter - Chayo Jameson [...] 1:30 PM EDT Pharmacy Pharmacy Hematology Oncology [place] [address] [place] [address] [facility], [facility] [address] Hem/Onc [address] [place] [address] 01/09/2024 9:45 AM EDT Hem/Onc Treatment Hematology/Oncology Treatment, [place] 200 [facility], [place] [phone] Kourtney, Chair 2 Hem Onc Scenery 200 [facility] [place] [address] 01/15/2024 1:45 PM EDT Hem/Onc Treatment Hematology/Oncology Treatment [place] [address] [facility] [place] [phone] 01/22/2024 10:00 AM EDT Office Visit Hematology/Oncology [facility] [place] [address] [facility] [place] [phone] Lisa Lopez MD [address] [facility] [place] [address] 01/22/2024 10:30 AM EDT Hem/Onc Treatment Hematology/Oncology Treatment [place] [address] [facility] [place] [phone] Kourtney, Chair 4 Hem Onc Scenery [address] [facility] [place], [place] [address] 03/23/2024 5:00 PM EST [facility] [address] [place] [address] Vidal Barba MD [address] [place] [address] Health Maintenance Due Date Last Done Comments [...] 07/01/2017, Additional history exists Hgb 12/31/2024 01/01/2024, 100 04/2023, 12/03/2023, Additional history exists O2 ASSESSMENT [...] filedocumented as of this encounter Care Teams Powderer Relationship Specialty Start Date End Date Vidal Barba MD [address] [facility] [place] [phone] PCP - General Family Medicine 01/02/24 documented as of this encounter
--- OUTSIDE RECORDS SUMMARY | 2024-02-11 06:46 | External Medical Summary | Summary of Care ---
Author Name Unknown Organization [facility] Address [address] [place] [address] Phone [phone] Care Team Providers Care Loss Mitigation Specialist Name Role Phone Vidal Barba MD Primary Care Provider [phone] Reason for Visit * Reason Comments Medication Management Encounter Details Date Type Department Care Team ([facility] st Contact Info) Description 01/08/2024 1:30 PM EDT Pharmacy Pharmacy Hematology Oncology [facility] [address] [place], [place] [phone] [facility], [facility] Hem/Onc [address] [place], [place] [phone] Non-small cell cancer of right lung (HCC)* [...] as of this encounter (statuses as of 01/08/2024) Medications Medication Sig Dispensed Refills Start Date [...] B, by GOLD 2017 classification ([facility]) Inhale 2 Puffs by mouth 4 times a day as needed for Wheezing. 18 g 4 08/16/2022 Active Additional Information Patient not taking.Reported on 10/30/2023 Budeson-Glycopyrrol- Formoterol 160-9-4.8 MCG/ACT Inhalation AerosolIndications:C OPD, group B, by GOLD 2017 classification ([facility]) Inhale 2 Puffs by mouth daily. 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 12/28/2014 Type 2 diabetes mellitus wit h hemoglobin A1c goal of less than 7.0% 10/13/2012 Smoker 10/13/2012 documented as of this encounter (statuses as of 01/08/2024) Resolved Problems Problem Noted Date Diagnosed Date [...] as of this encounter (statuses as of 01/08/2024) Immunizations Name Administration Dates Next Due COVID-19 [...] this encounter Progress Notes * Adriana Maria, [facility] - 01/08/2024 8:25 AM EDT MEDICATION THERAPY MANAGEMENT OSIMERTINIB TREATMENT PROGRESS NOTE Precious Bustillos [phone] Patient Phone Numbers : Ryne Communication: Chart review Treatment: Medication: Osimertinib (Tagrisso) Indication/Staging/Diagnosis Code: NSCLC, L858R positive / C34.90 Dose: 40mg daily ( 04/26/22) Administration: +/- food Start Date: 03/05/22 Primary Ticket Manager/Oncologist: Dr. Lopez Supportive Care Meds: None Prophylactic Meds: Hydrocortisone Treatment History: None Treatment Dose Adjustment/Hold History: 04/17/22: reduce osimertinib to 40mg daily due to rash and diarrhea 06/20/22-06/27/22 and 10/09/22-10/23/22: osimertinib held due to increased weakness, decreased appetite, and diarrhea Interval History: N/A Changes to medication list since last visit? No Drug interaction assessment: Treatment plan and current medication list evaluated for drug-drug interactions. No clinically significant drug interaction identified Assessment and Plan: Updated RX sent to [facility] to follow up in 1 week to assess tolerability Assessment of compliance: N/A Assessment of adverse effects attributed to drug therapy: N/A Dose adjustment needed based on lab or adverse drug reaction? No Follow up: 1 week Adriana Maria, HeidyD, BCOP Clinical Pharmacist, [facility] Oral Chemotherapy [facility] 01/08/2024, 8:36 AM Monitoring Parameters: Estimated CrCl Serum creatinine: 1.6 mg/dL (H) 01/01/24 0818 Estimated creatinine clearance: 25.9 mL/min (A) Hepatitis panel Latest Reference Range [...] 65-70% Treatment Parameters Per PI Pertinent Labs: N/A Time Spent on Encounter: 6 - 10 minutes Encounter Group: Oncology Encounter Interventions Item Category: Oral Chemotherapy Osimertinib Problem/Rationale: Hollis Plan Review: Clinical Review Pharmacist Intervention(s): Medication prescribed Magnitude of Intervention: Modification of medication for asymtomatic patients (Level 2) documented in this encounter Plan of Treatment Upcoming Encounters Date Type Department Care Team (Late st Contact Info) Description 01/09/2024 9:45 AM EDT Hem/Onc Treatment Hematology/[address]cology [address] [phone] Kourtney, Chair [address] [place] [address] 01/15/2024 9:45 AM EDT Pharmacy Pharmacy Hematology Oncology [address] [address] [facility], [facility] Hem/Onc [address] [place] [address] 01/15/2024 1:45 PM EDT Hem/Onc Treatment Hematology/Oncology [address], [address] [phone] 01/22/2024 10:00 AM EDT Office Visit Hematology/Oncology [facility] [address] [place] [phone] Lisa Lopez MD [address] [place] [address] [place] [address] 01/22/2024 10:30 AM EDT Hem/Onc Treatment [facility]ematology[facility]cology [facility], [place] [address] [facility] [phone] Kourtney, Chair 4 Hem Onc [address] [place] [address] 03/23/2024 5:00 PM EST Office Visit [facility] [address] [place] [address] Vidal Barba MD [address] [facility] [place] [address] Health Maintenance Due Date Last Done Comments Alpha-1 Antitrypsin 1968 Cologuard 11/05/1995 Sigmoidoscopy 11/05/1995 Fecal Occult Blood Test 12/16/2012 12/17/2011 DISCUSS TOBACCO CESSATION (REFER TO SMARTSET #6591) 12/29/2015 12/28/2014 (Discussed) Hepatitis B Vaccine (2 [...] Primary documented in this encounter Care Teams Loss Mitigation Specialist Relationship Specialty Start Date End Date Vidal Barba MD [address] [facility] [place] [address] PCP - General Family Medicine 01/02/24 documented as of this encounter
--- OUTSIDE RECORDS SUMMARY | 2024-02-11 06:46 | External Medical Summary | Summary of Care ---
Author Name Unknown Organization [facility] Address [address] [place] [address] Phone [phone] Care Team Providers Care Senior Clinical Data Analyst Name Role Phone Vidal Barba MD Primary Care Provider [phone] Reason for Referral * Evaluate & Treat - Unlimited Visits (Within 10 days (routine)) - Authorized Specialty Diagnoses / Procedures Referred By Contac t Referred To Contact Pharmacist / Pharmacy Diagnoses Non-small cell cancer of right lung (HCC) Sherin Ann, [facility]ly [facility] [address] [place] [address] Referral ID Status Reason Start Date Expiration Date Visits Requested Visits Authorized [id number] Authorized Specialty Services Required 4 99 99 Question Answer Referral Priority Within 10 days (routine) Where should this appointment be scheduled? [facility] Referring Provider Role: Specialist Specialty: Heme/Onc Reason for Referral: Oral Chemo Has consent been obtained for new oral chemo agent(s)? Yes Comments ORAL CHEMOTHERAPY [facility] MONITORING REFERRAL This patient is being referred to the Oral Chemotherapy Clinic for medication co-management. The planned duration of treatment is: Until disease progression/toxicity Please start oral chemotherapy: Once therapy has arrived from specialty pharmacy Oral Chemotherapy Monitoring will continue until one of the following discharge criteria has been met. The provider will be informed if any of these occur. 1. Disease progression. 2. Patient non-compliance 3. Compliance and tolerating treatment well without major toxicities with routine provider follow up. 4. Completion of therapy. Additional Comments: N/A By my signature, I understand that my patient will have their medication therapy managed by the [facility] Medication Therapy Disease Management Clinic (MTDM) per established policies, procedures, and protocols. I also certify that this referral may serve as an initiation of service for the management of drug therapy in the above noted patient. [facility] providers will be responsible for scheduling patient visits, obtaining appropriate laboratory studies, and adjusting medication management therapy per patient's need, in addition to those roles spelled out in the clinic policy, procedures, and drug management protocols. I understand that the service provided by the [facility] is voluntary and have informed patient that they can refuse the service at their discretion. I am aware that the [facility] Clinic will provide me with a copy of the patient encounter via my [employer]. I authorize the [facility] to carry out these activities on my behalf. I consider this program to be a necessary part of the patient's medical care. Encounter Details Date Type Department Care Team (Late st Contact Info) Description 01/06/2024 Orders Only Hematology/Oncology [facility] O[facility] [place] [address] [facility] [place] [address] Lisa Lopez MD [address] [place] [address] Non-small cell cancer of right lung (HCC)* [...] of right lung 01/29/2022 Unspecified atherosclerosis of [place] arteries of extremities, bilateral legs 12/27/2021 History [...] as of this encounter Miscellaneous Notes * Addendum Note - Sherin Ann [facility] - 01/08/2024 8:24 AM EDTAddended by: SHERIN ANN on: 01/08/2024 08:24 AM Modules accepted: Orders documented in this encounter Plan of Treatment Upcoming Encounters Date Type Department Care Team (Late st Contact Info) Description 01/08/2024 1:30 PM EDT Pharmacy Pharmacy Hematology Oncology [facility] [address] [place] [address] [facility] Clinic Hem/Onc [address] [place] [address] 01/09/2024 9:45 AM EDT Hem/Onc Treatment Hematology/Oncology Treatment, [address] [place] [phone] Kourtney, Chair 2 Hem Onc [address] [place] [address] 01/15/2024 1:45 PM EDT Hem/Onc Treatment Hematology/Oncology Treatment, [address] [place] [phone] 01/22/2024 10:00 AM EDT Office Visit Hematology/Oncology [facility] [address] [place] [phone] Lisa Lopez MD 200 [facility] [place] [address] 01/22/2024 10:30 AM EDT Hem/Onc Treatment [address]ematology[address]cology [address] [phone] Kourtney, Chair 4 Hem Onc [address] [place] [address] 03/23/2024 5:00 PM EST Office Visit Family Practice [address] [place] [address] Vidal Barba MD [address] [place] [address] Scheduled Referrals Name Type Priority Associated Diagnoses Orde r Schedule PHARMACIST MEDS THERAPY MGMT REFERRAL OP Referral Within 10 days (routine) Non-small cell cancer of right lung (HCC) Ordered: 01/08/2024 Health Maintenance Due Date Last Done Comments Alpha-1 Antitrypsin 1968 Cologuard 11/05/1995 Sigmoidoscopy 11/05/1995 Fecal Occult Blood Test 12/16/2012 12/17/2011 DISCUSS TOBACCO CESSATION (REFER TO SMARTSET #3791) 12/29/2015 12/28/2014 (Discussed) Hepatitis B Vaccine (2 [...] Primary documented in this encounter Care Teams Senior Clinical Data Analyst Relationship Specialty Start Date End Date Vidal Barba MD [address] [facility] [place] [address] PCP - General Family Medicine 01/02/24 documented as of this encounter
--- OUTSIDE RECORDS SUMMARY | 2024-02-11 06:47 | External Medical Summary | Summary of Care ---
Author Name Unknown Organization [facility] Address [address] [place] [address] Phone [phone] Care Team Providers Care Marine Cargo Specialist Name Role Phone Unavailable Primary Care Provider Unavailabl e Reason for Visit * Reason Comments Chemotherapy C1D1 Keytruda/Carbop latin/Taxol * Episode Based Medications (Routine) - Authorized Specialty Diagnoses / Procedures Referred By Pooja t Referred To Contact Diagnoses Squamous cell carcinoma of right lung (HCC) Non-small cell cancer of right lung (HCC) Encounter for antineoplastic chemotherapy CINV (chemotherapy-induced nausea and vomiting) Procedures [place] CARBOPLATIN INJECTION VT FOSAPREPITANT INJECTION VT INJ PEMBROLIZUMAB VT PACLITAXEL INJECTION Lisa Lopez MD 200 [facility] [place] [address] Anc Hem/Onc [address] [address] Referral ID Status Reason Start Date Expiration Date V isits Requested Visits Authorized [id number] Authorized 11/22/2023 11/21/2024 999 [id number] Encounter Details Date Type Department Care Team (Latest Contact Info) Description 12/05/2023 10:30 AM EDT Hem/Onc Treatment Hematology/Oncolog y Treatment, [address] [address] Kourtney, Chair 9 Hem Onc [address] [place] [address] Squamous cell carcinoma of right lung (HCC)*; [...] as of this encounter (statuses as of 01/06/2024) Medications Medication Sig Dispensed Refills Start Date [...] B, by GOLD 2017 classification ([facility]) Inhale 2 Puffs by mouth 4 times a day as needed for Wheezing. 18 g 4 08/16/2022 Active Additional Information Patient not taking.Reported on 10/30/2023 Budeson-Glycopyrrol- Formoterol 160-9-4.8 MCG/ACT Inhalation AerosolIndications:C OPD, group B, by GOLD 2017 classification ([facility]) Inhale 2 Puffs by mouth daily. Breztri [...] as of this encounter (statuses as of 01/06/2024) Active Problems Problem Noted Date Diagnosed Date CINV (chemotherapy-induced nausea and vomiting) 11/22/2023 Squamous cell lung cancer 11/18/2023 Encounter for antineoplastic chemotherapy 2023 Chronic kidney disease, stage 4 (severe) 024 Overview: Per CKD protocol Malignant neoplasm of lung 07/30/2022 Non-small cell cancer of right lung 01/29/2022 Unspecified atherosclerosis of [place] arteries of extremities, bilateral legs 12/27/2021 History [...] as of this encounter (statuses as of 01/06/2024) Resolved Problems Problem Noted Date Diagnosed Date [...] intraepithelial neoplasia grade 2 06/09/2010 10/13/2012 Overview: [facility] 02/26/11-BENIGN KNEE JOINT REPLACEMENT-LEFT 01/3106/09/2010 10/13/2012 [...] as of this encounter (statuses as of 01/06/2024) Immunizations Name Administration Dates Next Due COVID-19 [...] Sign Reading Time Taken Comments Blood Pressure 150/67 12/05/2023 11:15 AM EDT Pulse 78 12/05/2023 11:15 AM EDT Temperature 36.3 C (97.3 F) 12/05/2023 11:15 AM E DT Respiratory Rate 16 12/05/2023 11:15 AM EDT Oxygen Saturation 96% 12/05/2023 11:15 AM EDT Inhaled Oxygen Concentration - - Weight 58.3 kg (128 lb 9.6 oz) 12/05/2023 11:15 AM EDT Height - - Body Mass Index 22.79 11/28/2023 2:37 PM EDT documented in this encounter Nursing Notes * Tiffany Cohen RN - 12/05/2023 4:46 PM EDT Goals: Patient will remain free from injury. Possible barriers to meeting goals: ambulation with IV pole, use of assistive device for ambulation Stability of the patient: Moderately stable - low risk of patient condition declining or worsening Summary regarding today's goals: Met: patient without injury during treatment today. Pt tolerated ordered medications well. No complaints. Discharged in stable condition. * Tiffany Cohen RN - 12/05/2023 3:24 PM EDT Chair 11 Pt here for C1D1 Keytruda/Carboplatin/Taxol. No acute complaints. Educated patient about establishing IV access, giving premeds, taking PRN home medications, process of getting medication from pharmacy, layout of treatment room, and use of call davidson. Patient communicated understanding and denied any further questions. Chemotherapy/Immunotherapy agents: CARBOPLATIN, KEYTRUDA, and TAXOL Consent for chemotherapy drug treatment complete, dated, and signed? yes, date - 11/27/23 Treatment lab parameters met? Yes; Dr. Lopez notified of CMP, CBC results and ok for treatment today Has treatment weight changed > than 10%? No Treatment preauthorized? Yes VITALS Filed Vitals: 12/05/23 1115 BP: 150/67 Pulse: 78 Resp: 16 Temp: 36.3 C (97.3 F) TempSrc: Tympanic SpO2: 96% Weight: 58.3 kg (128 lb 9.6 oz) Urine protein: N/A Patient education completed [...] rainey while using the heat function. PRE-TREATMENT ASSESSMENT - baseline (1st treatment) NEURO: numbness or tingling: feet at night and weakness of legs, arms, or face: becomes weak in back and legs when up for 15 min and needs to sit down; uses walker when ambulating CV/RESP: shortness of breath: with exertion GI/: denies symptoms and decreased appetite: states food doesn't taste "good" OTHER: denies any additional symptoms PAIN: 0 Safety and Risk for Injury Patient will remain free from injury. Ensure appropriate safety devices are available. Provide and maintain safe environment. documented in this encounter Plan of Treatment Upcoming Encounters Date Type Department Care Team (Late st Contact Info) Description 01/08/2024 1:30 PM EDT Pharmacy Pharmacy Hematology Oncology [address] [address] [facility] Hem/Onc [address] [place] [address] 01/09/2024 9:45 AM EDT Hem/Onc Treatment Hematology/Oncology Treatment, [place] [facility] [place] [phone] Kourtney, Chair 2 Hem Onc Scenery [address] [facility] [place] [address] 01/15/2024 1:45 PM EDT Hem/Onc Treatment Hematology/Oncology Treatment, [place] [address] [place] [phone] 01/22/2024 10:00 AM EDT Office Visit Hematology/Oncology [facility] [address] [place] [phone] Lisa Lopez MD 200 [facility] [place] [address] 01/22/2024 10:30 AM EDT Hem/Onc Treatment Hematology/Oncology Treatment, [place] [address] [facility] [place] [phone] Kourtney, Chair 4 Hem Onc Scenery [address] [place] [address] [place] [address] 03/23/2024 5:00 PM EST Office Visit Family Practice [address] [place] [address] Vidal Barba MD [address] [place] [address] Health Maintenance Due Date Last Done Comments [...] 10/30/2022, Additional history exists GFR 07/01/2024 01/01/2024, 100 04/2023, 12/03/2023, Additional history exists AAA Monitoring 09/09/2024 09/10/2023, 10/24, 11/24/2021, Additional history exists Albumin/Creatinine Ratio 09/10/2024 024, 04/29/2023, 01/11/2023, Additional history exists PTH 09/10/2024 09/11/2023, 12/24, 10/09/2019 Phosphate 09/10/2024 09/11/2023, 01/23, 01/11/2023, Additional history exists Mammogram 10/21/2024 10/22/2023, 09/23, 09/02/2019, Additional history exists B-12 12/24/2024 12/25/2023, 05/0 10/2022, 07/01/2017, Additional history exists Hgb 12/31/2024 01/01/2024, 10/0 04/2023, 12/03/2023, Additional history exists O2 ASSESSMENT [...] Action Date Dose Rate Site CARBOplatin (Paraplatin) 256 mg in D5W 250 mL infusion 256 mg (rounded from 255.51 mg, Target AUC = 5.1), IV Piggyback, at 510 mL/hr Administer over 30 Minutes, PROTECT FROM LIGHT (Max Creatinine Clearance at 125 ml/min for calculating AUC dose), ONCE, 1 dose, On Sat12/05/23 at 1630 Start Infusion 12/05/2023 4:05 PM EDT 256 mg 510 mL/hr diphenhydrAMINE (Benadryl) cap 50 mg 50 mg, Oral, ONCE, On Sat12/05/23 at 1145, For 1 dose Given 12/05/2023 11:35 AM EDT 50 mg Famotidine (Pepcid) tab 20 mg 20 mg, Oral, ONCE, On Staci 12/05/23 at 1145, For 1 dose Given 12/05/2023 11:38 AM EDT 20 mg Fosaprepitant Dimeglumine (Emend) 150 mg, ondansetron (Zofran) 16 mg, dexamethasone sodium phosphate 12 mg in NSS 250 mL Infusion 150 mg, IV Piggyback, ONCE, 1 dose, On Staci 9/12/24 at 1230, Administer over 30 Minutes, Infuse over 30 minutes. Give 30 minutes prior to chemotherapy. Start Infusion 12/05/2023 11:31 AM EDT 150 mg 538.4 mL/hr NSS infusion Intravenous, at 50 mL/hr, PRN, Starting on Staci 12/05/23 at 1230, Until Sat12/05/23 at 2048, Maintenance line Continue on Pump 12/05/2023 11:30 AM EDT 50 mL/hr Start Infusion 12/05/2023 11:28 AM EDT 50 mL/hr PACLitaxel (Taxol) 279 mg in NSS 500 mL infusion 279 mg (rounded from 278.8 mg = 170 mg/m2 1.64 m2 Treatment Plan BSA from Recorded weight), IV Piggyback, ONCE, 1 dose, On Sat12/05/23 at 1330, Administer over 180 Minutes, Administer through 0.22 micron low protein binding filter! Start Infusion 12/05/2023 1:00 PM EDT 279 mg 170 mL/hr Pembrolizumab (Keytruda) 200 mg in NSS 100 mL infusion 200 mg, IV Piggyback, ONCE, 1 dose, On Sat12/05/23 at 1300, Administer over 30 Minutes, Infuse through 0.2 micron filter. Start Infusion 12/05/2023 12:06 PM EDT 200 mg 226 mL/hr documented in this encounter
--- OUTSIDE RECORDS SUMMARY | 2024-02-11 06:47 | External Medical Summary | Summary of Care ---
Author Name Unknown Organization [facility] Address [address] [place] [address] Phone [phone] Care Team Providers Care Virginia Line Attendant Name Role Phone Unavailable Primary Care Provider Unavailabl e Reason for Visit * Reason Comments Chemotherapy C1D1 Keytruda/Carbop latin/Taxol * Episode Based Medications (Routine) - Authorized Specialty Diagnoses / Procedures Referred By Pooja t Referred To Contact Diagnoses Squamous cell carcinoma of right lung (HCC) Non-small cell cancer of right lung (HCC) Encounter for antineoplastic chemotherapy CINV (chemotherapy-induced nausea and vomiting) Procedures [place] CARBOPLATIN INJECTION [place] FOSAPREPITANT INJECTION [place] INJ PEMBROLIZUMAB [place] PACLITAXEL INJECTION Lisa Lopez MD 200 [facility] [place] [address] Anc Hem/Onc [address] [address] Referral ID Status Reason Start Date Expiration Date V isits Requested Visits Authorized [id number] Authorized 11/22/2023 11/21/[phone] Encounter Details Date Type Department Care Team (Latest Contact Info) Description 12/05/2023 10:30 AM EDT Hem/Onc Treatment Hematology/Oncolog y Treatment, [address] [phone] Kourtney, Chair [address] Hem On[address] [place] [address] Squamous cell carcinoma of right lung (HCC)*; [...] group B, by GOLD 2017 classification ([facility]) Inhale 2 Puffs by mouth 4 times a day as needed for Wheezing. 18 g 4 08/16/2022 Active Additional Information Patient not taking.Reported on 10/30/2023 Budeson-Glycopyrrol- Formoterol 160-9-4.8 MCG/ACT Inhalation AerosolIndications:C OPD, group B, by GOLD 2017 classification ([facility]) Inhale 2 Puffs by mouth daily. [...] of right lung 01/29/2022 Unspecified atherosclerosis of [place] arteries of extremities, bilateral legs 12/27/2021 History [...] intraepithelial neoplasia grade 2 06/09/2010 10/13/2012 Overview: [facility] 02/26/11-BENIGN KNEE JOINT REPLACEMENT-LEFT 01/3106/09/2010 10/13/2012 [...] 1:30 PM EDT Pharmacy Pharmacy Hematology Oncology [address] [facility], [facility] Hem/Onc [address] [place] [address] 01/09/2024 9:45 AM EDT Hem/Onc Treatment Hematology/Oncology Treatment, [place] 200 [place] [phone] Kourtney, Chair 2 Hem Onc Scenery 200 [facility] [place] [address] 01/15/2024 1:45 PM EDT Hem/Onc Treatment Hematology/Oncology Treatment, [place] 200 [facility] [place] [phone] 01/22/2024 10:00 AM EDT Office Visit Hematology/Oncology [facility] [address] [place] [phone] Lisa Lopez MD 200 [facility] [place] [address] 01/22/2024 10:30 AM EDT Hem/Onc Treatment Hematology/Oncology Treatment, [place] 200 [facility], [place] [phone] Kourtney, Chair 4 Hem Onc Scenery [address] [place] [address] [place] [address] 03/23/2024 5:00 PM EST Office Visit Family Practice [address] [place] [address] Vidal Barba MD [address] [place] [address] Health Maintenance Due Date Last Done Comments [...]
--- OUTSIDE RECORDS SUMMARY | 2024-02-11 06:47 | External Medical Summary | Summary of Care ---
Author Name Unknown Organization [facility] Address [address] [place] [address] Phone [phone] Care Team Providers Care Bracer Name Role Phone Unavailable Primary Care Provider [...] ME PACLITAXEL INJECTION Lisa Lopez MD 200 [place] [address] Anc Hem/Onc [address] [address] Referral ID Status Reason Start Date Expiration Date V isits Requested Visits Authorized [id number] Authorized 11/22/2023 11/21/[phone] Encounter Details Date Type Department Care Team (Latest Contact Info) Description 12/05/2023 10:30 AM EDT Hem/Onc Treatment Hematology/Oncolog y Treatment, [address] [phone] Kourtney, Chair 9 Hem On[address] [place] [address] Squamous cell carcinoma of right lung (HCC)*; [...] of right lung 01/29/2022 Unspecified atherosclerosis of [place] arteries of extremities, bilateral legs 12/27/2021 History [...] intraepithelial neoplasia grade 2 06/09/2010 10/13/2012 Overview: [facility] 02/26/11-BENIGN KNEE JOINT REPLACEMENT-LEFT 01/3106/09/2010 10/13/2012 [...] 1:30 PM EDT Pharmacy Pharmacy Hematology Oncology [address] [address] [facility] Hem/Onc [address] [place] [address] 01/09/2024 9:45 AM EDT Hem/Onc Treatment Hematology/Oncology Treatment, [place] 200 [facility] [phone] Kourtney, Chair 2 Hem Onc Scenery [address] [facility] [place] [address] 01/15/2024 1:45 PM EDT Hem/Onc Treatment Hematology/Oncology Treatment, [place] 200 [facility] [phone] 01/22/2024 10:00 AM EDT Office Visit Hematology/Oncology [facility] [address] [place] [phone] Lisa Lopez MD 200 [facility] [place] [address] 01/22/2024 10:30 AM EDT Hem/Onc Treatment Hematology/Oncology Treatment, [place] 200 [facility], [place] [phone] Kourtney, Chair 4 Hem Onc Scenery [address] [place] [address] [place] [address] 03/23/2024 5:00 PM EST Office Visit Family Practice [address] [place] [address] Vidal Barba MD [address] [place] [address] Health Maintenance Due Date Last Done Comments [...]
--- OUTSIDE RECORDS SUMMARY | 2024-02-11 06:47 | External Medical Summary | Summary of Care ---
Author Name Unknown Organization [facility] Address [address] [place] [address] Phone [phone] Care Team Providers Care Log Rafter Name Role Phone Unavailable Primary Care Provider Unavailabl e Reason for Visit * Reason Comments Chemotherapy C1D1 Keytruda/Carbop latin/Taxol * Episode Based Medications (Routine) - Authorized Specialty Diagnoses / Procedures Referred By Pooja t Referred To Contact Diagnoses Squamous cell carcinoma of right lung (HCC) Non-small cell cancer of right lung (HCC) Encounter for antineoplastic chemotherapy CINV (chemotherapy-induced nausea and vomiting) Procedures HI CARBOPLATIN INJECTION HI FOSAPREPITANT INJECTION HI INJ PEMBROLIZUMAB HI PACLITAXEL INJECTION Lisa Lopez MD 200 [facility] [place] [address] Anc Hem/Onc [address] [address] Referral ID Status Reason Start Date Expiration Date V isits Requested Visits Authorized [id number] Authorized 11/22/2023 11/21/[phone] Encounter Details Date Type Department Care Team (Latest Contact Info) Description 12/05/2023 10:30 AM EDT Hem/Onc Treatment Hematology/Oncolog y Treatment, [address] [phone] Kourtney, Chair 9 Hem Onc [address] [place] [address] Squamous cell carcinoma of right lung (HCC)*; [...] GOLD 2017 classification ([facility]) Inhale 2 Puffs by mouth 4 times a day as needed for Wheezing. 18 g 4 08/16/2022 Active Additional Information Patient not taking.Reported on 10/30/2023 Budeson-Glycopyrrol- Formoterol 160-9-4.8 MCG/ACT Inhalation AerosolIndications:C OPD, group B, by GOLD 2017 classification ([facility]) Inhale 2 Puffs by mouth daily. Breztri [...] of right lung 01/29/2022 Unspecified atherosclerosis of [place] arteries of extremities, bilateral legs 12/27/2021 History [...] intraepithelial neoplasia grade 2 06/09/2010 10/13/2012 Overview: [facility] 02/26/11-BENIGN KNEE JOINT REPLACEMENT-LEFT 01/3106/09/2010 10/13/2012 [...] 1:30 PM EDT Pharmacy Pharmacy Hematology Oncology [address] [address] [facility] Hem/Onc [address] [place] [address] 01/09/2024 9:45 AM EDT Hem/Onc Treatment Hematology/Oncology Treatment, [place] 200 [place] [phone] Kourtney, Chair 2 Hem Onc Scenery 200 [facility] [place] [address] 01/15/2024 1:45 PM EDT Hem/Onc Treatment Hematology/Oncology Treatment, [place] 200 [place] [phone] 01/22/2024 10:00 AM EDT Office Visit Hematology/Oncology [facility] [address] [place] [phone] Lisa Lopez MD 200 [facility] [place] [address] 01/22/2024 10:30 AM EDT Hem/Onc Treatment Hematology/Oncology Treatment, [place] 200 [facility], [place] [phone] Kourtney, Chair 4 Hem Onc Scenery [address] [place] [address] [place] [address] 03/23/2024 5:00 PM EST Office Visit Family Practice [address] [place] [address] Vidal Barba MD [address] [place] [address] Health Maintenance Due Date Last Done Comments [...]
--- OUTSIDE RECORDS SUMMARY | 2024-02-11 06:47 | External Medical Summary | Summary of Care ---
Author Name Unknown Organization [facility] Address [address] [place] [address] Phone [phone] Team Prov[address] Care Road Driver Name Role Phone Unavailable Primary Care Provider Unavailabl e Reason for Visit * Reason Comments Chemotherapy C1D1 Keytruda/Carbop latin/Taxol * Episode Based Medications (Routine) - Authorized Specialty Diagnoses / Procedures Referred By Pooja t Referred To Contact Diagnoses Squamous cell carcinoma of right lung (HCC) Non-small cell cancer of right lung (HCC) Encounter for antineoplastic chemotherapy CINV (chemotherapy-induced nausea and vomiting) Procedures [place] CARBOPLATIN INJECTION [place] FOSAPREPITANT INJECTION [place] INJ PEMBROLIZUMAB [place] PACLITAXEL INJECTION Lisa Lopez MD 200 [facility] [place] [address] Anc Hem/Onc [address] [address] Referral ID Status Reason Start Date Expiration Date V isits Requested Visits Authorized [id number] Authorized 11/22/2023 11/21/2024 999 999 Encounter Details Date Type Department Care Team (Latest Contact Info) Description 12/05/2023 10:30 AM EDT Hem/Onc Treatment Hematology/Oncolog y Treatment, [address] [address] Kourtney, Chair [address] [place] [address] Squamous cell carcinoma of right lung (HCC)*; [...] of right lung 01/29/2022 Unspecified atherosclerosis of [place] arteries of extremities, bilateral legs 12/27/2021 History [...] intraepithelial neoplasia grade 2 06/09/2010 10/13/2012 Overview: [facility] 02/26/11-BENIGN KNEE JOINT REPLACEMENT-LEFT 01/3106/09/2010 10/13/2012 Dyslipidemia, [...] 1:30 PM EDT Pharmacy Pharmacy Hematology Oncology [address] [address] [facility] [place], [facility] Hem/Onc [address] [place] [address] 01/09/2024 9:45 AM EDT Hem/Onc Treatment Hematology/Oncology Treatment, [place] 200 [place] [address] Kourtney, Chair 2 Hem Onc Scenery 200 [facility] [place] [address] 01/15/2024 1:45 PM EDT Hem/Onc Treatment Hematology/Oncology Treatment, [place] 200 [facility] [place] [phone] 01/22/2024 10:00 AM EDT Office Visit Hematology/Oncology [facility] [address] [place] [phone] Lisa Lopez MD 200 [facility] [place] [address] 01/22/2024 10:30 AM EDT Hem/Onc Treatment Hematology/Oncology Treatment, [place] 200 [facility], [place] [phone] Kourtney, Chair 4 Hem Onc Scenery [address] [place] [address] [place] [address] 03/23/2024 5:00 PM EST Office Visit Family Practice [address] [place] [address] Vidal Barba MD [address] [place] [address] Health Maintenance Due Date Last Done Comments [...]
--- OUTSIDE RECORDS SUMMARY | 2024-02-11 06:47 | External Medical Summary | Summary of Care ---
Author Name Unknown Organization [facility] Address [address] [place] [address] Phone [phone] Care Team Providers Care Mechanical Door Repairer Name Role Phone Unavailable Primary Care Provider Unavailabl e Reason for Visit * Reason Comments Chemotherapy C1D1 Keytruda/Carbop latin/Taxol * Episode Based Medications (Routine) - Authorized Specialty Diagnoses / Procedures Referred By Pooja t Referred To Contact Diagnoses Squamous cell carcinoma of right lung (HCC) Non-small cell cancer of right lung (HCC) Encounter for antineoplastic chemotherapy CINV (chemotherapy-induced nausea and vomiting) Procedures [place] CARBOPLATIN INJECTION [place] FOSAPREPITANT INJECTION [place] INJ PEMBROLIZUMAB [place] PACLITAXEL INJECTION Lisa Lopez MD 200 [facility] [place] [address] Anc Hem/Onc [address] [address] Referral ID Status Reason Start Date Expiration Date V isits Requested Visits Authorized [id number] Authorized 11/22/2023 11/21/2024 999 999 Encounter Details Date Type Department Care Team (Latest Contact Info) Description 12/05/2023 10:30 AM EDT Hem/Onc Treatment Hematology/Oncolog y Treatment, [address] [address] Kourtney, Chair [address] [place] [address] Squamous cell carcinoma of right lung (HCC)*; [...] of right lung 01/29/2022 Unspecified atherosclerosis of [place] arteries of extremities, bilateral legs 12/27/2021 History [...] intraepithelial neoplasia grade 2 06/09/2010 10/13/2012 Overview: [facility] 02/26/11-BENIGN KNEE JOINT REPLACEMENT-LEFT 01/3106/09/2010 10/13/2012 [...] 1:30 PM EDT Pharmacy Pharmacy Hematology Oncology [address] [address] [facility] Hem/Onc [address] [place] [address] 01/09/2024 9:45 AM EDT Hem/Onc Treatment Hematology/Oncology Treatment, [place] 200 [place] [address] Kourtney, Chair 2 Hem Onc Scenery 200 [facility] [place] [address] 01/15/2024 1:45 PM EDT Hem/Onc Treatment Hematology/Oncology Treatment, [place] 200 [place] [phone] 01/22/2024 10:00 AM EDT Office Visit Hematology/Oncology [facility] [address] [place] [phone] Lisa Lopez MD 200 [facility] [place] [address] 01/22/2024 10:30 AM EDT Hem/Onc Treatment Hematology/Oncology Treatment, [place] 200 [facility], [place] [phone] Kourtney, Chair 4 Hem Onc Scenery [address] [place] [address] [place] [address] 03/23/2024 5:00 PM EST Office Visit Family Practice [address] [place] [address] Vidal Barba MD [address] [place] [address] Health Maintenance Due Date Last Done Comments [...]
--- OUTSIDE RECORDS SUMMARY | 2024-02-11 06:48 | External Medical Summary | Summary of Care ---
Author Name Unknown Organization [facility] Address [address] [place] [address] Phone [phone] Care Team Providers Care Tinter Photograph Name Role Phone Vidal Barba MD Primary Care Provider [phone] Reason for Visit * Reason Comments Medication Management Encounter Details Date Type Department Care Team ([facility] st Contact Info) Description 01/06/2024 1:00 PM EDT Pharmacy Pharmacy Hematology Oncology [facility] [address] [place], [place] [phone] [facility] [place], [facility] Hem/Onc [address] [place], [place] [phone] Non-small cell cancer of right lung (HCC)* [...] of right lung 01/29/2022 Unspecified atherosclerosis of [place] arteries of extremities, bilateral legs 12/27/2021 History [...] this encounter Progress Notes * Adriana Maria, [facility] - 01/06/2024 10:22 AM EDT MEDICATION THERAPY MANAGEMENT OSIMERTINIB TREATMENT PROGRESS NOTE Precious Bustillos [id number] Patient Phone Numbers : Ryne Communication: Chart review Treatment: Medication: Osimertinib (Tagrisso) Indication/Staging/Diagnosis Code: NSCLC, L858R positive / C34.90 Dose: 40mg daily ( 04/26/22) Administration: +/- food Start Date: 03/05/22 Primary Sandwich Wrapper/Oncologist: Dr. Lopez Supportive Care Meds: None Prophylactic [...] significant drug interaction identified Assessment and Plan: Per discussion with Dr. Lopez, pt to continue osimertinib as she has 2 different cancers Mcclure plan uploaded and sent to Dr. Lopez for [facility] MTM to follow up in 2 days to send updated RX to [facility] Assessment of compliance: N/A Assessment of adverse effects attributed to drug therapy: N/A Dose adjustment needed based on lab or adverse drug reaction? No Follow up: 2 days Adriana Maria, PharmD, BCOP Clinical Pharmacist, [facility] Oral Chemotherapy [facility] 01/06/2024, 10:28 AM Monitoring Parameters: Estimated CrCl Serum creatinine: [...] Pertinent Labs: N/A Time Spent on Encounter: 11 - 15 minutes Encounter Group: Oncology Encounter Interventions Item Category: Oral Chemotherapy Osimertinib Problem/Rationale: Adherence - Medication product not available Mcclure Plan Review: Initial Plan/upload Pharmacist Intervention(s): Clarification with Provider and Referral review Magnitude of Intervention: Modification of medication for asymtomatic patients (Level 2) documented in this encounter Plan of Treatment Upcoming Encounters Date Type Department Care Team (Late st Contact Info) Description 01/08/2024 1:30 PM EDT Pharmacy Pharmacy Hematology Oncology [place] [address] [place] [address] [facility] [place] Hem/Onc [address] [place] [address] 01/09/2024 9:45 AM EDT Hem/Onc Treatment Hematology/Oncology Treatment, [place] [facility] [phone] Kourtney, Chair 2 Hem Onc Scenery 200 [facility] [place] [address] 01/15/2024 1:45 PM EDT Hem/Onc Treatment Hematology/Oncology [address], [address] [phone] 01/22/2024 10:00 AM EDT Office Visit [facility] Kourtney [place] [facility] [place] [phone] Lisa Lopez MD 200 [facility] [place] [address] 01/22/2024 10:30 AM EDT Hem/Onc Treatment Hematology/Oncology Treatment, [place] [facility] [phone] Kourtney, Chair 4 Hem Onc Scenery [address] [place] [address] 03/23/2024 5:00 PM EST Office Visit [facility] [address] [place] [address] Vidal Barba MD [address] [place] [address] Health Maintenance Due Date Last Done Comments Alpha-1 Antitrypsin 1968 Cologuard 11/05/1995 Sigmoidoscopy 11/05/1995 Fecal Occult Blood Test 12/16/2012 12/17/2011 DISCUSS TOBACCO CESSATION (REFER TO SMARTSET #4551) 12/29/2015 12/28/2014 (Discussed) Hepatitis B Vaccine (2 [...] Primary documented in this encounter Care Teams Tinter Photograph Relationship Specialty Start Date End Date Vidal Barba MD [address] [facility] [place] [id number] PCP - General Family Medicine 01/02/24 documented as of this encounter
--- OUTSIDE RECORDS SUMMARY | 2024-02-11 06:48 | External Medical Summary | Summary of Care ---
Author Name Unknown Organization [facility] Address [address] [place] [address] Phone [phone] Care Team Providers Care Vice President Of Product Marketing Name Role Phone Unavailable Primary Care Provider Unavailabl e Reason for Visit * Reason Comments Chemotherapy C1D1 Keytruda/Carbop latin/Taxol * Episode Based Medications (Routine) - Authorized Specialty Diagnoses / Procedures Referred By Pooja t Referred To Contact Diagnoses Squamous cell carcinoma of right lung (HCC) Non-small cell cancer of right lung (HCC) Encounter for antineoplastic chemotherapy CINV (chemotherapy-induced nausea and vomiting) Procedures [place] CARBOPLATIN INJECTION MT FOSAPREPITANT INJECTION MT INJ PEMBROLIZUMAB [place] PACLITAXEL INJECTION Lisa Lopez MD 200 [place] [address] Anc Hem/Onc [address] [address] Referral ID Status Reason Start Date Expiration Date V isits Requested Visits Authorized [id number] Authorized 11/22/2023 11/21/2024 999 999 Encounter Details Date Type Department Care Team (Latest Contact Info) Description 12/05/2023 10:30 AM EDT Hem/Onc Treatment Hematology/Oncolog y Treatment, [address] [address] Kourtney, Chair 9 Hem On[address] [place] [address] Squamous cell carcinoma of right lung (HCC)*; [...] COPD, group B, by GOLD 2017 classification ([facility]) Inhale 2 Puffs by mouth 4 times a day as needed for Wheezing. 18 g 4 08/16/2022 Active Additional Information Patient not taking.Reported on 10/30/2023 Budeson-Glycopyrrol- Formoterol 160-9-4.8 MCG/ACT Inhalation AerosolIndications:C OPD, group B, by GOLD 2017 classification ([facility]) Inhale 2 Puffs by mouth daily. [...] of right lung 01/29/2022 Unspecified atherosclerosis of [place] arteries of extremities, bilateral legs 12/27/2021 [...] intraepithelial neoplasia grade 2 06/09/2010 10/13/2012 Overview: [facility] 02/26/11-BENIGN KNEE JOINT REPLACEMENT-LEFT 01/3106/09/2010 10/13/2012 Dyslipidemia, [...] 1:30 PM EDT Pharmacy Pharmacy Hematology Oncology [address] [address] [facility], [facility] Hem/Onc [address] [place] [address] 01/09/2024 9:45 AM EDT Hem/Onc Treatment Hematology/Oncology Treatment, [place] 200 [facility] [place] [address] Kourtney, Chair 2 Hem Onc Scenery 200 [facility] [place] [address] 01/15/2024 1:45 PM EDT Hem/Onc Treatment Hematology/Oncology Treatment, [place] [address] [facility] [place] [phone] 01/22/2024 10:00 AM EDT Office Visit Hematology/Oncology [facility] [address] [place] [phone] Lisa Lopez MD 200 [facility] [place] [address] 01/22/2024 10:30 AM EDT Hem/Onc Treatment Hematology/Oncology Treatment, [place] [address] [facility], [place] [phone] Kourtney, Chair 4 Hem Onc Scenery [address] [place] [address] [place] [address] 03/23/2024 5:00 PM EST Office Visit Family Practice [address] [place] [address] Vidal Barba MD [address] [place] [address] Health Maintenance Due Date Last Done Comments [...]
--- OUTSIDE RECORDS SUMMARY | 2024-02-11 06:48 | External Medical Summary | Summary of Care ---
Author Name Unknown Organization [facility] Address [address] [place] [address] Phone [phone] Care Team Providers Care Operations Analyst Name Role Phone Vidal Barba MD Primary Care Provider [phone] Encounter Details Date Type Department Care Team (Late st Contact Info) Description 01/06/2024 Orders Only Hematology/Oncology [facility] Kourtney [place] 200 [facility] [place] [address] Lisa Lopez MD [address] [place] [address] Allergies Active Allergy Reactions Criticality Noted Date [...] of right lung 01/29/2022 Unspecified atherosclerosis of [place] arteries of extremities, bilateral legs 12/27/2021 History [...] 1:30 PM EDT Pharmacy [facility] [address] [place] [address] [facility] Hem/Onc [address] [place] [address] 01/09/2024 9:45 AM EDT Hem/Onc Treatment Hematology/Oncology Treatment, [place] [address] [place] [address] Kourtney, Chair 2 Hem Onc Scenery 200 [facility] [place] [address] 01/15/2024 1:45 PM EDT Hem/Onc Treatment Hematology/Oncology Treatment, [place] 200 [facility] Jane [place], [place] [phone] 01/22/2024 10:00 AM EDT Office Visit Hematology/Oncology [facility] [place] 200 [facility] [place] [phone] Lisa Lopez MD 200 [facility] [place] [address] 01/22/2024 10:30 AM EDT Hem/Onc Treatment Hematology/Oncology Treatment [place] 200 [facility] [place], [place] [phone] Kourtney, Chair 4 Hem Onc Scenery 200 [facility] [place] [address] 03/23/2024 5:00 PM EST Office [facility] [address] [place] [address] Vidal Barba MD [address] [place] [address] Health Maintenance Due Date Last Done Comments [...] filedocumented as of this encounter Care Teams Operations Analyst Relationship Specialty Start Date End Date Vidal Barba MD [address] [place] [address] PCP - General Family Medicine 01/02/24 documented as of this encounter
--- OUTSIDE RECORDS SUMMARY | 2024-02-11 06:48 | External Medical Summary | Summary of Care ---
Author Name Unknown Organization [facility] Address [address] [place] [address] Phone [phone] Care Team Providers Care School Cafeteria Cook Head Name Role Phone Vidal Barba MD Primary Care Provider [phone] Encounter Details Date Type Department Care Team (Late st Contact Info) Description 01/01/2024 Orders Only Hematology/Oncology [facility] Kourtney [place] 200 [facility] [place] [address] Kem Young MD 200 [facility] [place] [address] Allergies Active Allergy Reactions Criticality Noted Date [...] COPD, group B, by GOLD 2017 classification ([facility]) Inhale 2 Puffs by mouth 4 times a day as needed for Wheezing. 18 g 4 08/16/2022 Active Additional Information Patient not taking.Reported on 10/30/2023 Budeson-Glycopyrrol- Formoterol 160-9-4.8 MCG/ACT Inhalation AerosolIndications:C OPD, group B, by GOLD 2017 classification ([facility]) Inhale 2 Puffs by mouth daily. [...] XL)Indications:MDD (major depressive disorder), recurrent episode, moderate ([facility]) Take 1 Tablet by mouth in the [...] 1:30 PM EDT Pharmacy Pharmacy Hematology Oncology [facility], [place] [address] [place] [address] [facility] [place] Hem/Onc [address] [place] [address] 01/09/2024 9:45 AM EDT Hem/Onc Treatment Hematology/Oncology Treatment, [place] [address] [place] [address] Kourtney, Chair 2 Hem Onc Scenery 200 [place] [address] 01/15/2024 1:45 PM EDT Hem/Onc Treatment Hematology/Oncology Treatment [place] 200 [facility] [place], [place] [phone] 01/22/2024 10:00 AM EDT Office Visit Hematology/Oncology [facility] [place] 200 [facility] [place] [phone] Lisa Lopez MD 200 [facility] [place] [address] 01/22/2024 10:30 AM EDT Hem/Onc Treatment Hematology/Oncology Treatment [place] 200 [facility] [place], [place] [phone] [place], Chair 4 Hem Onc [facility] 200 [facility] [place] [address] 03/23/2024 5:00 PM EST Office [facility] [address] [place] [address] Vidal Barba MD [address] [place] [address] Health Maintenance Due Date Last Done Comments [...] filedocumented as of this encounter Care Teams School Cafeteria Cook Head Relationship Specialty Start Date End Date Vidal Barba MD 3[address] [facility] [place] [address] PCP - General Family Medicine 01/02/24 documented as of this encounter
--- OUTSIDE RECORDS SUMMARY | 2024-02-11 06:48 | External Medical Summary | Summary of Care ---
Author Name Unknown Organization [facility] Address [address] [place] [address] Phone [phone] Care Team Providers Care Television Installer Name Role Phone Unavailable Primary Care Provider Unavailabl e Reason for Visit * Reason Comments Chemotherapy C1D1 Keytruda/Carbop latin/Taxol * Episode Based Medications (Routine) - Authorized Specialty Diagnoses / Procedures Referred By Pooja t Referred To Contact Diagnoses Squamous cell carcinoma of right lung (HCC) Non-small cell cancer of right lung (HCC) Encounter for antineoplastic chemotherapy CINV (chemotherapy-induced nausea and vomiting) Procedures [place] CARBOPLATIN INJECTION [place] FOSAPREPITANT INJECTION [place] INJ PEMBROLIZUMAB [place] PACLITAXEL INJECTION Lisa Lopez MD 200 [place] [id number] Anc Hem/Onc [address] [address] Referral ID Status Reason Start Date Expiration Date V isits Requested Visits Authorized [id number] Authorized 11/22/2023 11/21/2024 999 999 Encounter Details Date Type Department Care Team (Latest Contact Info) Description 12/05/2023 10:30 AM EDT Hem/Onc Treatment Hematology/Oncolog y Treatment, [address] [address] Kourtney, Chair [address] [place] [id number] Squamous cell carcinoma of right lung (HCC)*; [...] group B, by GOLD 2017 classification ([facility]) Inhale 2 Puffs by mouth 4 times a day as needed for Wheezing. 18 g 4 08/16/2022 Active Additional Information Patient not taking.Reported on 10/30/2023 Budeson-Glycopyrrol- Formoterol 160-9-4.8 MCG/ACT Inhalation AerosolIndications:C OPD, group B, by GOLD 2017 classification ([facility]) Inhale 2 Puffs by mouth daily. [...] of right lung 01/29/2022 Unspecified atherosclerosis of [place] arteries of extremities, bilateral legs 12/27/2021 History [...] intraepithelial neoplasia grade 2 06/09/2010 10/13/2012 Overview: [facility] 02/26/11-BENIGN KNEE JOINT REPLACEMENT-LEFT 01/3106/09/2010 10/13/2012 [...] 1:30 PM EDT Pharmacy Pharmacy Hematology Oncology [address] [address] [facility] [place] Hem/Onc [address] [place] [address] 01/09/2024 9:45 AM EDT Hem/Onc Treatment Hematology/Oncology Treatment, [place] 200 [place] [phone] Kourtney, Chair 2 Hem Onc Scenery 200 [facility] [place] [address] 01/15/2024 1:45 PM EDT Hem/Onc Treatment Hematology/Oncology Treatment, [place] 200 [place] [phone] 01/22/2024 10:00 AM EDT Office Visit Hematology/Oncology [facility] [address] [place] [phone] Lisa Lopez MD 200 [facility] [place] [address] 01/22/2024 10:30 AM EDT Hem/Onc Treatment Hematology/Oncology Treatment, [place] 200 [facility], [place] [phone] Kourtney, Chair 4 Hem Onc Scenery [address] [place] [address] [place] [address] 03/23/2024 5:00 PM EST Office Visit Family Practice [address] [place] [address] Vidal Barba MD [address] [place] [address] Health Maintenance Due Date Last Done Comments [...]
--- OUTSIDE RECORDS SUMMARY | 2024-02-11 06:48 | External Medical Summary | Summary of Care ---
Author Name Unknown Organization [facility] Address [address] [place] [address] Phone [phone] Care Team Providers Care Consumer Loan Officer Name Role Phone Vidal Barba MD Primary Care Provider [phone] Encounter Details Date Type Department Care Team (Late st Contact Info) Description 12/30/2023 Orders Only Hematology/Oncology [facility] [place] 200 [facility] [place] [address] Keily Loco CRNP [address] [place] [address] Allergies Active Allergy Reactions Criticality [...] OF [place]) Inhale 2 Puffs by mouth daily. Breztri [...] 1:30 PM EDT Pharmacy Pharmacy [facility]ology [facility] [address] [place] [address] [facility] Hem/Onc [address] [place] [address] 01/09/2024 9:45 AM EDT Hem/Onc Treatment Hematology/Oncology Treatment, [place] [address] [place] [address] Kourtney, Chair 2 Hem Onc Scenery [address] [place] [address] 01/15/2024 1:45 PM EDT Hem/Onc Treatment Hematology/Oncology Treatment, [place] 200 [facility] [place], [place] [phone] 01/22/2024 10:00 AM EDT Office Visit Hematology/Oncology [facility] [place] 200 [facility] [place] [phone] Lisa Lopez MD 200 [facility] [place] [address] 01/22/2024 10:30 AM EDT Hem/Onc Treatment Hematology/Oncology Treatment, [place] 200 [facility] [place], [place] [phone] Kourtney, Chair 4 Hem Onc Scenery 200 [facility] [place] [address] 03/23/2024 5:00 PM EST Office Visit Family Practice [place] [address] [place] [address] Vidal Barba MD [address] [place] [address] Health Maintenance Due Date Last Done Comments [...] filedocumented as of this encounter Care Teams Consumer Loan Officer Relationship Specialty Start Date End Date Vidal Barba MD [address] [place] [address] PCP - General Family Medicine 01/02/24 documented as of this encounter
--- OUTSIDE RECORDS SUMMARY | 2024-02-11 06:48 | External Medical Summary | Summary of Care ---
Author Name Unknown Organization [facility] Address [address] [place] [address] Phone [phone] Care Team Providers Care Acquisition Manager Name Role Phone Vidal Barba MD Primary Care Provider [phone] Encounter Details Date Type Department Care Team (Late st Contact Info) Description 01/06/2024 Orders Only Hematology/Oncology Treatment, [address] [address] Lisa Lopez MD [address] [place] [address] Allergies Active Allergy Reactions Criticality Noted Date [...] XL)Indications:MDD (major depressive disorder), recurrent episode, moderate ([facility]) Take 1 Tablet by mouth [...] intraepithelial neoplasia grade 2 06/09/2010 10/13/2012 Overview: [facility] 02/26/11-BENIGN KNEE JOINT REPLACEMENT-LEFT 01/3106/09/2010 [...] Upcoming Encounters Date Type Department Care Team (Latest Contact Info) Description 01/06/2024 1:00 PM EDT Pharmacy Pharmacy Hematology Oncology [address] [address] [facility] Hem/Onc [facility] [place] [address] Non-small cell cancer of right lung (HCC)* 01/08/2024 1:30 PM EDT Pharmacy Pharmacy Hematology Oncology [place] [address] [place] [address] [facility] Hem/Onc [address] [place] [address] 01/09/2024 9:45 AM EDT Hem/Onc Treatment Hematology/Oncology Treatment, [place] 200 [place] [address] Kourtney, Chair 2 Hem Onc Scenery 200 [facility] [place] [address] 01/15/2024 1:45 PM EDT Hem/Onc Treatment Hematology/Oncology Treatment, [place] 200 [place] [address] 01/22/2024 10:00 AM EDT Office Visit Hematology/Oncology [facility] [address] [place] [address] Lisa Lopez MD 200 [facility] [place] [address] 01/22/2024 10:30 AM EDT Hem/Onc Treatment Hematology/Oncology Treatment, [place] 200 [place] [address] Kourtney, Chair 4 Hem Onc [facility] [address] [place] [address] [place] [address] 03/23/2024 5:00 PM EST Office Visit Family Practice [address] [place] [address] Vidal Barba MD [address] [place] [address] Health Maintenance Due Date Last Done Comments [...] filedocumented as of this encounter Care Teams Acquisition Manager Relationship Specialty Start Date End Date Vidal Barba MD [address] [facility] [place] [address] PCP - General Family Medicine 01/02/24 documented as of this encounter
--- OUTSIDE RECORDS SUMMARY | 2024-02-11 06:49 | External Medical Summary | Summary of Care ---
Author Name Unknown Organization [facility] Address [address] [place] [address] Phone [phone] Care Team Providers Care Licensing And Registration Director Name Role Phone Vidal Barba MD Primary Care Provider [phone] Encounter Details Date Type Department Care Team (Late st Contact Info) Description 01/06/2024 Orders Only Hematology/Oncology [facility] Kourtney [place] 200 [facility] [place] [address] Lisa Lopez MD [address] [place] [address] Allergies Active Allergy Reactions Criticality Noted Date [...] of right lung 01/29/2022 Unspecified atherosclerosis of red [place] arteries of extremities, bilateral legs 12/27/2021 History [...] 1:00 PM EDT Pharmacy Pharmacy Hematology Oncology [place] [address] [place] [address] [facility] [place], [facility] Hem/Onc [facility] [place] [address] Non-small cell cancer of right lung (HCC)* 01/08/2024 1:30 PM EDT Pharmacy Pharmacy Hematology Oncology [place] [address] [place] [address] [facility], [facility] Hem/Onc [address] [facility] [place] [address] 01/09/2024 9:45 AM EDT Hem/Onc Treatment Hematology/Oncology Treatment, [place] 200 [place] [address] Kourtney, Chair 2 Hem Onc Scenery 200 [facility] [place] [address] 01/15/2024 1:45 PM EDT Hem/Onc Treatment Hematology/Oncology Treatment, [place] [address] [place] [address] 01/22/2024 10:00 AM EDT Office Visit Hematology/Oncology [facility] [place] 200 [facility] [place] [phone] Lisa Lopez MD 200 [facility] [place] [address] 01/22/2024 10:30 AM EDT Hem/Onc Treatment Hematology/Oncology Treatment, [place] 200 [facility], [place] [phone] Kourtney, Chair 4 Hem Onc Scenery 200 [facility] [place], [place] [address] 03/23/2024 5:00 PM EST Office Visit Family Practice [address] [place] [address] Vidal Barba MD [address] [place] [address] Health Maintenance Due Date Last Done Comments [...] filedocumented as of this encounter Care Teams Licensing And Registration Director Relationship Specialty Start Date End Date Vidal Barba MD [address] [facility] [place] [address] PCP - General Family Medicine 01/02/24 documented as of this encounter
--- OUTSIDE RECORDS SUMMARY | 2024-02-11 06:49 | External Medical Summary | Summary of Care ---
Author Name Unknown Organization [facility] Address [address] [place] [address] Phone [phone] Care Team Providers Care Die Sinker Name Role Phone Vidal Barba MD Primary Care Provider [phone] Reason for Visit * Reason Onset Date Comments Advice 12/30/2023 Encounter Details Date Type Department Care Team (Late st Contact Info) Description 12/30/2023 Telephone Hematology/Oncology Gregg Oconnell [place] 200 [place] [address] Lisa Lopez MD [address] [place] [address] Advice Allergies Active Allergy Reactions Criticality Noted [...] as of this encounter (statuses as of 01/02/2024) Medications Medication Sig Dispensed Refills Start Date [...] COPD, group B, by GOLD 2017 classification ([facility]) Inhale 2 Puffs by mouth 4 times a day as needed for Wheezing. 18 g 4 08/16/2022 Active Additional Information Patient not taking.Reported on 10/30/2023 Budeson-Glycopyrrol- Formoterol 160-9-4.8 MCG/ACT Inhalation AerosolIndications:C OPD, group B, by GOLD 2017 classification ([facility]) Inhale 2 Puffs by mouth daily. [...] as of this encounter (statuses as of 01/02/2024) Active Problems Problem Noted Date Diagnosed Date [...] of right lung 01/29/2022 Unspecified atherosclerosis of [place] arteries of extremities, bilateral legs 12/27/2021 History [...] as of this encounter (statuses as of 01/02/2024) Resolved Problems Problem Noted Date Diagnosed Date [...] as of this encounter (statuses as of 01/02/2024) Immunizations Name Administration Dates Next Due COVID-19 [...] Miscellaneous Notes * Telephone Encounter - Thai Martinez RN [...] Team (Late st Contact Info) Description 01/08/2024 9:30 AM EDT Laboratory Laboratory [place] Sharita Nolan [address] [place] [address] Leeann Sheriff [place] [address] [place] [address] 01/09/2024 9:45 AM EDT Hem/Onc [place] [place] [address] Kourtney, Chair 2 Hem Onc [address] [place] [address] 01/15/2024 1:45 PM EDT Hem/Onc Treatment [place] [address] [place] [address] 01/22/2024 10:00 AM EDT Office Visit Hematology/Oncology [facility] [place] [place] [address] Lisa Lopez MD [address] [place] [address] [place] [address] 01/22/2024 10:30 AM EDT Hem/Onc Treatment Hematology/Oncology Treatment, [place] [address] [place] [address] Park, Chair 4 Hem Onc Scenery [address] [place] [address] 03/23/2024 5:00 PM EST Office Visit Family Practice [address] [place] [address] Vidal Barba MD [address] [place] [address] Health Maintenance Due Date Last Done Comments [...] filedocumented as of this encounter Care Teams Die Sinker Relationship Specialty Start Date End Date Vidal Barba MD [address] [facility] [place] [address] PCP - General Family Medicine 01/02/24 documented as of this encounter
--- OUTSIDE RECORDS SUMMARY | 2024-02-11 06:49 | External Medical Summary | Summary of Care ---
Author Name Unknown Organization [facility] Address [address] [place] [address] Phone [phone] Care Team Providers Care Automobile Tester Name Role Phone Vidal Barba MD Primary Care Provider [phone] Reason for Visit * Reason Onset Date Comments Advice 12/30/2023 Encounter Details Date Type Department Care Team (Late st Contact Info) Description 12/30/2023 Telephone Hematology/Oncology Gregg Oconnell [place] 200 [facility] [place] [address] Lisa Lopez MD [address] [place] [address] Advice Allergies Active Allergy Reactions Criticality Noted [...] COPD, group B, by GOLD 2017 classification ([facility]) Inhale 2 Puffs by mouth 4 times a day as needed for Wheezing. 18 g 4 08/16/2022 Active Additional Information Patient not taking.Reported on 10/30/2023 Budeson-Glycopyrrol- Formoterol 160-9-4.8 MCG/ACT Inhalation AerosolIndications:C OPD, group B, by GOLD 2017 classification ([facility]) Inhale 2 Puffs by [...] of right lung 01/29/2022 Unspecified atherosclerosis of [place] arteries of extremities, bilateral legs 12/27/2021 History [...] receiving Carbo/Taxol/Pembro as well. Thank you. MTM- CARIEI * Telephone Encounter - Chayo Jameson OSA [...] 9:45 AM EDT Hem/Onc Treatment Hematology/Oncology [address], [address] [place] [address] Kourtney, Chair 2 Hem On[address] [place] [address] 01/15/2024 1:45 PM EDT Hem/Onc Treatment Hematology/Oncology Treatment, [address] [place] [address] 01/22/2024 10:00 AM EDT Office Visit Hematology/Oncology [facility] Kourtney [address] [place] [address] Lisa Lopez MD [address] [place] [address] [place] [address] 01/22/2024 10:30 AM EDT Hem/Onc Treatment Hematology/Oncology Treatment, [place] [address] [place] [address] Park, Chair 4 Hem Onc Scenery [address] [place], [place] [address] 03/23/2024 5:00 PM EST Office Visit Family Practice [address] [place] [address] Vidal Barba MD [address] [place] [address] Health Maintenance Due Date Last Done Comments [...] filedocumented as of this encounter Care Teams Automobile Tester Relationship Specialty Start Date End Date Vidal Barba MD [address] [place] [address] PCP - General Family Medicine 01/02/24 documented as of this encounter
--- OUTSIDE RECORDS SUMMARY | 2024-02-11 06:49 | External Medical Summary | Summary of Care ---
Author Name Unknown Organization [facility] Address [address] [place] [address] Phone [phone] Care Team Providers Care Marksmanship Instructor Name Role Phone Vidal Barba MD Primary Care Provider [phone] Reason for Visit * Reason Comments Medication Management Encounter Details Date Type Department Care Team ([facility] st Contact Info) Description 01/06/2024 1:00 PM EDT Pharmacy Pharmacy Hematology Oncology [facility] [address] [place], [place] [address] [facility] [place], [facility] Hem/Onc [address] [place], [place] [address] Non-small cell cancer of right lung (HCC)* [facility]) Inhale 2 Puffs by mouth daily. [...] of right lung 01/29/2022 Unspecified atherosclerosis of [place] arteries of extremities, bilateral legs 12/27/2021 History [...] Progress Notes * Adriana Maria, [facility] - 01/06/2024 10:22 AM EDT MEDICATION THERAPY MANAGEMENT OSIMERTINIB TREATMENT PROGRESS NOTE Precious Bustillos [phone] Patient Phone Numbers : Ryne Communication: Chart review Treatment: Medication: Osimertinib (Tagrisso) Indication/Staging/Diagnosis Code: NSCLC, L858R positive / C34.90 Dose: 40mg daily ( 04/26/22) Administration: +/- food Start Date: 03/05/22 Primary Filling Hauler/Oncologist: Dr. Lopez Supportive Care Meds: None Prophylactic [...] osimertinib as she has 2 different cancers [place] plan uploaded and sent to Dr. Lopez for [facility] MTM to follow up in 2 days to send updated RX to [facility] Assessment of compliance: N/A Assessment of adverse effects attributed to drug therapy: N/A Dose adjustment needed based on lab or adverse drug reaction? No Follow up: 2 days Adriana Maria, PharmD, BCOP Clinical Pharmacist, [facility] Oral Chemotherapy [facility] 01/06/2024, 10:28 AM Monitoring Parameters: Estimated CrCl [...] Problem/Rationale: Adherence - Medication product not available [place] Plan Review: Initial Plan/upload Pharmacist Intervention(s): Clarification with Provider and Referral review Magnitude of Intervention: Modification of medication for asymtomatic patients (Level 2) documented in this encounter Plan of Treatment Upcoming Encounters Date Type Department Care Team (Late st Contact Info) Description 01/08/2024 1:30 PM EDT Pharmacy Pharmacy Hematology Oncology [place] [address] [place] [address] [facility], [facility] Hem/Onc [address] [place] [address] 01/09/2024 9:45 AM EDT Hem/Onc Treatment Hematology/Oncology Treatment, [place] 200 [facility] [address] Kourtney, Chair 2 Hem Onc Scenery 200 [facility] [place] [address] 01/15/2024 1:45 PM EDT Hem/Onc Treatment Hematology/Oncology Treatment, [address] [address] 01/22/2024 10:00 AM EDT Office Visit Hematology/Oncology [facility] Kourtney [place] 200 [facility] [place] [address] Lisa Lopez MD 200 [facility] [place] [address] 01/22/2024 10:30 AM EDT Hem/Onc Treatment Hematology/Oncology Treatment, [place] 200 [facility] [address] Kourtney, Chair 4 Hem Onc Scenery [address] [place] [address] 03/23/2024 5:00 PM EST Office Visit [facility] [address] [place] [address] Vidal Barba MD [address] [place] [address] Health Maintenance Due Date Last Done Comments Alpha-1 Antitrypsin 1968 Cologuard 11/05/1995 Sigmoidoscopy 11/05/1995 Fecal Occult Blood Test 12/16/2012 12/17/2011 DISCUSS TOBACCO CESSATION (REFER TO SMARTSET #6756) 12/29/2015 12/28/2014 (Discussed) Hepatitis B Vaccine (2 [...] Primary documented in this encounter Care Teams Marksmanship Instructor Relationship Specialty Start Date End Date Vidal Barba MD 3[address] [facility] [place] [phone] PCP - General Family Medicine 01/02/24 documented as of this encounter
--- OUTSIDE RECORDS SUMMARY | 2024-02-11 06:49 | External Medical Summary | Summary of Care ---
Author Name Unknown Organization [facility] Address [address] [place] [address] Phone [phone] Care Team Providers Care Bricklayer Tender Name Role Phone Vidal Barba MD Primary Care Provider [phone] Reason for Visit * Reason Comments Medication Refill Encounter Details Date Type Department Care Team ([facility] st Contact Info) Description 12/30/2023 Refill Hematology/Oncology [facility] Kourtney [place] 200 [place] [address] Lisa Lopez MD [address] [place] [address] Non-small cell cancer of right lung (HCC) [...] of right lung 01/29/2022 Unspecified atherosclerosis of [place] arteries of extremities, bilateral legs 12/27/2021 History [...] encounter Miscellaneous Notes * Telephone Encounter - Adriana Ann RPh - 01/06/2024 10:24 AM EDT Refused Prescriptions: Disp Refills Osimertinib Mesylate 40 MG Oral Tablet (Ta*30 Tab*5 Sig: TAKE 1TABLET (40 MG) BY MOUTH IN THE MORNING WITH OR WITHOUT FOOD. TAKE MEDICATION ABOUT SAME TIME EVERY DAY.Refused By: ADRIANA ANN for Refusal: Other (comment below) documented in this encounter Plan of Treatment Upcoming Encounters Date Type Department Care Team (Latest Contact Info) Description 01/06/2024 1:00 PM EDT Pharmacy Pharmacy Hematology Oncology [address] [address] [facility], [facility] Hem/Onc [address] [place] [address] Non-small cell cancer of right lung (HCC)* 01/08/2024 1:30 PM EDT Pharmacy Pharmacy Hematology Oncology [address] [address] [facility], [facility] Hem/Onc [address] [place] [address] 01/09/2024 9:45 AM EDT Hem/Onc Treatment Hematology/Oncology Treatment, [address] [place] [address] Kourtney, Chair 2 Hem Onc [address] [place] [address] 01/15/2024 1:45 PM EDT Hem/Onc Treatment Hematology/Oncology Treatment, [address] [place] [address] 01/22/2024 10:00 AM EDT Office Visit Hematology/Oncology [facility] Kourt[address] [place] [address] [address] [place] [phone] Lisa Lopez MD [address] [place] [address] [place] [address] 01/22/2024 10:30 AM EDT Hem/Onc Treatment Hematology/Oncology Treatment, [address] [phone] Park, Chair 4 Hem Onc Scenery [address] [place] [address] 03/23/2024 5:00 PM EST Office Visit Family Practice [address] [place] [address] Vidal Barba MD [address] [place] [address] Health Maintenance Due Date Last Done Comments [...] 09/02/2019, Additional history exists B-12 12/24/2024 12/25/2023, 0510/2022, 07/01/2017, Additional history exists Hgb 12/31/2024 01/01/2024, [...] Non-small cell cancer of right lung (HCC) Non-small cell cancer of right lung (HCC)- Primary documented in this encounter Care Teams Bricklayer Tender Relationship Specialty Start Date End Date Vidal Barba MD [address] [facility] [place] [address] PCP - General Family Medicine 10/10/24 documented as of this encounter
--- OUTSIDE RECORDS SUMMARY | 2024-02-11 06:50 | External Medical Summary | Summary of Care ---
Author Name Unknown Organization [facility] Address [address] [place] [address] Phone [phone] Care Team Providers Care Micropaleontologist Name Role Phone Unavailable Primary Care Provider Unavailabl e Reason for Visit * Reason Comments Chemotherapy Hold chemo IV Therapy Venofer 03/28 Encounter Details Date Type Department Care Team (Latest Contact Info) Description 01/01/2024 9:15 AM EDT Hem/Onc Treatment Hematology/Oncology Treatment, [address] [address] Kourtney, Chair [address] Hem [address] [address] Anemia due to chronic renal failure treated [...] of right lung 01/29/2022 Unspecified atherosclerosis of [place] arteries of extremities, bilateral legs 12/27/2021 History [...] Care Team (Late st Contact Info) Description 01/02/2024 1:20 PM EDT Office Visit [facility] [address] [place] [address] Vidal Barba MD [address] [place] [address] 01/08/2024 9:30 AM EDT Laboratory Laboratory [address] [place] [phone] [place] [address] 01/09/2024 9:45 AM EDT Hem/Onc Treatment Hematology/Oncology Treatment, [place] [address] [place] [address] Kourtney, Chair 2 Hem Onc Scene 200 [place] [address] 01/15/2024 1:45 PM EDT Hem/Onc Treatment Hematology/Oncology Treatment, [place] 200 [facility], [place] [address] 01/22/2024 10:00 AM EDT Office Visit Hematology/Oncology [facility] [place] 200 [facility] [place], [place] [address] Lisa Lopez MD 200 [facility] [place], [place] [address] 01/22/2024 10:30 AM EDT Hem[facility]Onc [facility] 200 [facility], [place] [address] Kourtney, Chair [address] Hem On[address] [place], [place] [address] Health Maintenance Due Date Last Done Comments Alpha-1 Antitrypsin 1968 Cologuard 11/05/1995 Sigmoidoscopy 11/05/1995 Fecal Occult Blood Test 12/16/2012 12/17/2011 DISCUSS TOBACCO CESSATION (REFER TO SMARTSET #3291) 12/29/2015 12/28/2014 (Discussed) Hepatitis B Vaccine (2 of 3 - 19+ 3-dose series) 08/01/2016 07/04/2016 Diabetic Eye Exam 05/12/2019 05/12/2018, , 03/16/2016, Additional history exists Zoster Vaccines (3 of 3) 12/04/2019 10/09/2019, 09/22 Diabetic Foot Exam 07/11/2021 07/11/2020, 0 10/09/2019, 11/03/2018, Additional history exists Depression Monitoring 10/18/2021 10/18/2020 DTap/Tdap Vaccines (2 - Td or Tdap) 01/29/2023 01/29/2013, 10/28/2006 Nephrology Referral 08/14/2023 08/13/2022 COVID-19 Vaccine (4 - 2023-25 season) 2023 03/09/2021, 09/10/2020, 08/15/2020 HbA1c 03/12/2024 [...] 2.2 mL of Sterile Water for Injection, [facility], into the vial, directing the diluent stream [...] following reconstitution when stored at 2-30 degrees C. Given 01/01/2024 12:35 PM EDT 2 mg hEParin 100 UNIT/ML Lock Flush inj 500 Units 500 Units (5 mL), IV Lock, PRN Other, IV Flush, Starting on Sat01/01/24 at 1034, Until Sat01/01/24 at 2108, For 24 hours, Do not flush if lock, PICC, or central line not in place; IV infusing or unable to flush. Given 01/01/2024 12:21 PM EDT 500 Units Iron Sucrose (Venofer) 300 mg in NSS 250 mL ivpb 300 mg, IV Piggyback, ONCE, 1 dose, On Sat01/01/24 at 1215, Administer over 90 Minutes Start Infusion 01/01/2024 10:41 AM EDT 300 mg 180 mL/hr NSS infusion 500 mL, Intravenous, at 50 mL/hr, CONTINUOUS, Starting on Sat01/01/24 at 1145, Until Sat01/01/24 at 2108 Start Infusion 01/01/2024 10:38 AM EDT 500 mL 50 mL/hr sodium chloride 0.9 % flush central line 10 mL 10 mL, IV Push, PRN Other, IV Flush, Starting on Sat01/01/24 at 1034, Until Sat01/01/24 at 2108, For 24 hours, Do not flush if lock, PICC, or central line not in place; IV infusing or unable to flush. Given 01/01/2024 12:21 PM EDT 10 mL documented in this encounter
--- OUTSIDE RECORDS SUMMARY | 2024-02-11 06:50 | External Medical Summary | Summary of Care ---
Author Name Unknown Organization [facility] Address [address] [place] [address] Phone [phone] Care Team Providers Care Environmental Control Administrator Name Role Phone Unavailable Primary Care Provider Unavailabl e Reason for Visit * Reason Onset Date Comments Medication Management 12/30/2023 Venofer Encounter Details Date Type Department Care Team ([facility] st Contact Info) Description 12/30/2023 Telephone Hematology/Oncology Treatment, [place] [address] [place] [address] Keily Loco CRNP [address] [place] [address] Medication Management (Venofer) Allergies Active Allergy Reactions Criticality Noted Date [...] as of this encounter (statuses as of 12/31/2023) Medications Medication Sig Dispensed Refills Start Date [...] B, by GOLD 2017 classification ([facility]) Inhale 2 Puffs by mouth 4 times a day as needed for Wheezing. 18 g 4 08/16/2022 Active Additional Information Patient not taking.Reported on 10/30/2023 Budeson-Glycopyrrol- Formoterol 160-9-4.8 MCG/ACT Inhalation AerosolIndications:C OPD, group B, by GOLD 2017 classification ([facility]) Inhale 2 Puffs by mouth daily. Breztri [...] as of this encounter (statuses as of 12/31/2023) Active Problems Problem Noted Date Diagnosed Date Anemia due to chronic renal failure treated with erythropoietin, stage 4 (severe) 12/30/2023 CINV (chemotherapy-induced nausea and vomiting) 11/22/2023 Squamous cell lung cancer 11/18/2023 Encounter for antineoplastic chemotherapy 2023 Chronic kidney disease, stage 4 (severe) 024 Overview: Per CKD protocol Malignant neoplasm of lung 07/30/2022 Non-small cell cancer of right lung 01/29/2022 Unspecified atherosclerosis of [place] arteries of extremities, bilateral legs 12/27/2021 History [...] as of this encounter (statuses as of 12/31/2023) Resolved Problems Problem Noted Date Diagnosed Date [...] as of this encounter (statuses as of 12/31/2023) Immunizations Name Administration Dates Next Due COVID-19 [...] encounter Miscellaneous Notes * Telephone Encounter - Concepción Bray LPN - 12/31/2023 10:56 AM EDT Scheduling: Please call patient to schedule "Venofer 06/26", Claudy 2-hour treatment time. Thank you!! Venofer one infusion weekly x 4 Please see Thai's note below: "Pt is due for chemo on 12/31. She can have this on that day, needs to be a 7HR treatment so she will need to come earlier than scheduled if she chooses." * Telephone Encounter - Thai Martinez RN - 12/30/2023 12:11 PM EDT Order signed. Adrien- please call patient to schedule 2 hour treatment "Venofer 03/28"(John). Pt is due for chemo on 12/31. She can have this on that day, needs to be a 7HR treatment so she will need to come earlier than scheduled if she chooses. * Telephone Encounter - Concepción Bray LPN - 12/30/2023 11:57 AM EDT Order received for Venofer [place] plan built and routed to provider No prior authorization required documented in this encounter Plan of Treatment Upcoming Encounters Date Type Department Care Team (Late st Contact Info) Description 01/01/2024 9:50 AM EDT Laboratory Laboratory [facility] [place] [facility] [place] [phone] Kourtney, Lab [address] [place] [address] 01/01/2024 11:00 AM EDT Hem/Onc Treatment Hematology/Oncology Treatment, [place] [address] [place] [phone] Kourtney, Chair 3 Hem Onc [facility] 200 [facility] [place] [address] 01/02/2024 1:20 PM EDT Office Visit Family Practice [address] [place] [address] Vidal Barba MD [address] [place] [address] 01/22/2024 10:00 AM EDT Office Visit Hematology/Oncology [facility] Kourtney [place] [address] [place] [phone] Lisa Lopez MD [address] [facility], [place] [phone] Health Maintenance Due Date Last Done Comments Alpha-1 Antitrypsin 1968 Cologuard 11/05/1995 Sigmoidoscopy 11/05/1995 Fecal Occult Blood Test 12/16/2012 12/17/2011 DISCUSS TOBACCO CESSATION (REFER TO SMARTSET #4741) 12/29/2015 12/28/2014 (Discussed) Hepatitis B Vaccine (2 [...] 09/11/2023, 06/23, 10/30/2022, Additional history exists GFR 06/24/2024 12/25/2023, 11/23, 10/14/2023, Additional history exists AAA Monitoring 09/09/2024 09/10/2023, 10/24, 11/24/2021, Additional history exists Albumin/Creatinine Ratio 09/10/2024 024, 04/29/2023, 01/11/2023, Additional history exists PTH 09/10/2024 09/11/2023, 12/24, 10/09/2019 Phosphate 09/10/2024 09/11/2023, 01/23, 01/11/2023, Additional history exists Mammogram 10/21/2024 10/22/2023, 09/23, 09/02/2019, Additional history exists B-12 12/24/2024 12/25/2023, 05/0 10/2022, 07/01/2017, Additional history exists Hgb 12/24/2024 12/25/2023, 11/23, 10/30/2023, Additional history exists O2 ASSESSMENT COMPLETED IN PAST YEAR FOR COPD 12/25/2024 12/26/2023 Colonoscopy 10/21/2028 10/21/2018, 04/03/2011 Colorectal Cancer Screening [...]
--- OUTSIDE RECORDS SUMMARY | 2024-02-11 06:50 | External Medical Summary | Summary of Care ---
Author Name Unknown Organization [facility] Address [address] [place] [address] Phone [phone] Care Team Providers Care Anvil Seating Press Operator Name Role Phone Unavailable Primary Care Provider Unavailabl e Reason for Visit * Reason Comments Outpatient Testing Encounter Details Date Type Department Care Team ([facility] st Contact Info) Description 01/01/2024 8:15 AM EDT Laboratory Laboratory [facility] [address] [place] [address] [facility] Lab [address] [place] [address] Non-small cell cancer of right lung (HCC) [...] as of this encounter (statuses as of 01/01/2024) Medications Medication Sig Dispensed Refills Start Date [...] COPD, group B, by GOLD 2017 classification ([facility]) Inhale 2 Puffs by mouth 4 times a day as needed for Wheezing. 18 g 4 08/16/2022 Active Additional Information Patient not taking.Reported on 10/30/2023 Budeson-Glycopyrrol- Formoterol 160-9-4.8 MCG/ACT Inhalation AerosolIndications:C OPD, group B, by GOLD 2017 classification ([facility]) Inhale 2 Puffs by mouth [...] as of this encounter (statuses as of 01/01/2024) Active Problems Problem Noted Date Diagnosed Date Anemia due to chronic renal failure treated with erythropoietin, stage 4 (severe) 12/30/2023 CINV (chemotherapy-induced nausea and vomiting) 11/22/2023 Squamous cell lung cancer 11/18/2023 Encounter for antineoplastic chemotherapy 2023 Chronic kidney disease, stage 4 (severe) 024 Overview: Per CKD protocol Malignant neoplasm of lung 07/30/2022 Non-small cell cancer of right lung 01/29/2022 Unspecified atherosclerosis of [place] arteries of extremities, bilateral legs 12/27/2021 History [...] as of this encounter (statuses as of 01/01/2024) Resolved Problems Problem Noted Date Diagnosed Date [...] as of this encounter (statuses as of 01/01/2024) Immunizations Name Administration Dates Next Due COVID-19 [...] Team (Late st Contact Info) Description 01/01/2024 9:15 AM EDT Hem/Onc Treatment Hematology/Oncology Treatment, [place] [address] [place] [phone] Kourtney, Chair 9 Hem Onc [place] [address] [place] [address] Arrived 01/02/2024 1:20 PM EDT Office Visit Family Practice [address] [place] [address] Vidal Barba MD [address] [place] [address] 01/22/2024 10:00 AM EDT Office Visit Hematology/Oncology [place] [address] [facility] [address] [place] [address] Lisa Lopez MD 200 [facility] [place] [address] Pending Results Name Type Priority Associated Diagnoses Date /Time CBC WITH WBC DIFFERENTIAL Lab STAT Non-small cell cancer of right lung (HCC) 01/01/2024 8:18 AM EDT COMPREHENSIVE METABOLIC PANEL Lab STAT Non-small cell cancer of right lung (HCC) 01/01/2024 8:18 AM EDT TSH WITH FREE T4 IF INDICATED Lab STAT Non-small cell cancer of right lung (HCC) 01/01/2024 8:18 AM EDT CBC Lab STAT Non-small cell cancer of right lung (HCC) 01/01/2024 8:18 AM EDT DIFFERENTIAL, AUTOMATED Lab STAT Non-small cell cancer of right lung (HCC) 01/01/2024 8:18 AM EDT Health Maintenance Due Date Last Done Comments Alpha-1 Antitrypsin 1968 Cologuard 11/05/1995 Sigmoidoscopy 11/05/1995 Fecal Occult Blood Test 12/16/2012 12/17/2011 DISCUSS TOBACCO CESSATION (REFER TO SMARTSET #8461) 12/29/2015 12/28/2014 (Discussed) Hepatitis B Vaccine (2 [...]
--- OUTSIDE RECORDS SUMMARY | 2024-02-11 06:50 | External Medical Summary ---
Author Name Unknown Address Unknown Organization K09:[facility] [place] [address] Laboratory Report Ordering Provider Test Date Status LEWIS OLIVA 01/01/2024 08:18:24 Final Observation Date Value Abnormality Reference (Units ) Status WBC, Total 01/01/2024 08:18:24 8.49 4.00-10.8 0 (K/uL) Final RBC 01/01/2024 08:18:24 2.96 3.85-5.15 (M/uL) Final Hemoglobin 01/01/2024 08:18:24 8.1 Below low normal 12 .0-15.3 (g/dL) Final HCT 01/01/2024 08:18:24 25.1 Below low normal 36. 0-45.2 (%) Final MCV 01/01/2024 08:18:24 84.8 81.5-97.5 (fL) Final MCH 01/01/2024 08:18:24 27.4 27.0-34.0 (pg) Final MCHC 01/01/2024 08:18:24 32.3 32.0-36.0 (g/dL) Final RDW 01/01/2024 08:18:24 18.0 11.5-15.5 (%) Final Platelets 01/01/2024 08:18:24 433 Above high normal 14 0-400 (K/uL) Final MPV 01/01/2024 08:18:24 8.3 6.6-11.1 ( fL) Final Performing Location [facility] [place] [address]
--- OUTSIDE RECORDS SUMMARY | 2024-02-11 06:50 | External Medical Summary | Summary of Care ---
Author Name Unknown Organization [facility] Address [address] [place] [address] Phone [phone] Care Team Providers Care Coremaker Experimental Name Role Phone Unavailable Primary Care Provider Unavailabl e Reason for Visit * Reason Onset Date Comments Appointment 12/31/2023 Encounter Details Date Type Department Care Team ([facility] st Contact Info) Description 12/31/2023 Telephone Nephrology, [address] [address] Toi Chopra MD [address] [place] [address] Appointment Allergies Active Allergy Reactions Criticality Noted Date [...] of right lung 01/29/2022 Unspecified atherosclerosis of [place] arteries of extremities, bilateral legs 12/27/2021 History [...] encounter Miscellaneous Notes * Telephone Encounter - Patricia Rendon OSA - 12/31/2023 1:19 PM EDT Pt contacted by scheduling staff to offer a follow up appointment as patient has not been seen within the suggested time frame outlined in their previous plan of care. Outcome: Transitioned to another provider/Receiving care outside the system. Patient is following up with a catalyst impregnator outside of [facility] at this time. Patient being removed from the list. EGFR Date Value Ref Range Status 12/25/2023 32 (L) >=60 mL/min Final Comment: eGFR is calculated based on the CKD-EPI 2020 equation. 09/11/2023 26 (A) >=60 ML/MIN 11/25/2021 86 >59 mL/MIN Final Comment: eGFR = 142 X [min(Scr/k,1)]a [max(Scr/k,1)-1.200x0.9938age X 1.012 [if female] Where Scr is serum creatinine; k is 0.7 for females and 0.9 males; a is -0.241 for females and -0.302 for males; min indicates the minimum of Scr/k or 1, max indicates the maximum of Scr/k or 1 07/18/2018 59.7 (L) >60 Final Comment: If patient is , multiply estimated GFR by 1.159. 03/12/2013 >60.0 >60 mL/min Final Patient risk of progression to kidney failure requiring dialysis or transplant based on the 4-variable Kidney Failure Risk Equation (Tangri et al. TAZ 2011): At 2 years 1.02% At 5 years 3.15% *Scoring requires that patient be on the CKD registry and have reported values for age, sex, eGFR, and urine albumin to creatinine ratio (ACR) or protein to creatinine ratio (PCR) in the past 3 years. If PCR is more recent than ACR, values will be converted to ACR (Sumida et al. Jazzy Paleologist Med 2020). documented in this encounter Plan of Treatment Upcoming Encounters Date Type Department Care Team (Late st Contact Info) Description 01/01/2024 8:15 AM EDT Laboratory [facility] [place] [address] [place] [phone] Kourtney, Lab [facility] [address] [facility] [place] [address] 01/01/2024 9:15 AM EDT Hem/Onc Treatment Hematology/Oncology Treatment, [place] [address] [place] [phone] Kourtney, Chair 9 Hem Onc [facility] [place] [address] [place] [address] 01/02/2024 1:20 PM EDT Office Visit [facility], [place] [address] [place] [address] Vidal Barba MD [address] [place] [address] 01/22/2024 10:00 AM EDT Office Visit Hematology/Oncology [facility] 200 [place] [phone] Lisa Lopez MD 200 [facility] [place] [address] Health Maintenance Due Date Last Done Comments [...]
--- OUTSIDE RECORDS SUMMARY | 2024-02-11 06:50 | External Medical Summary ---
Author Name Unknown Address Unknown Organization [facility] [place] [address] Laboratory Report Ordering Provider Test Date Status LEWIS OLIVA 01/01/2024 08:18:24 Final Observation Date Value Abnormality Reference (Units ) Status BUN 01/01/2024 08:18:24 32 Above high normal 6-20 (mg/dL) Final Creatinine 01/01/2024 08:18:24 1.6 Above high normal 0.5-1.0 (mg/dL) Final Glomerular filtration rate/1.73 sq M.predicted [Volume Rate/Area] in Serum, Plasma or Blood by Creatinine-based formula (CKD-EPI) 01/01/2024 08:18:24 35 Below low normal >=60 (mL/min) Final eGFR is calculated based on the CKD-EPI 2020 equation. Sodium 01/01/2024 08:18:24 130 Below low normal 135 -146 (mmol/L) Final Potassium 01/01/2024 08:18:24 4.9 3.5-5.1 (m mol/L) Final Cl 01/01/2024 08:18:24 93 Below low normal 98- 107 (mmol/L) Final CO2 01/01/2024 08:18:24 23 22-32 (mmo l/L) Final Anion gap 01/01/2024 08:18:24 14 7-15 (mmol /L) Final Glucose 01/01/2024 08:18:24 190 Above high normal 70 -120 (mg/dL) Final Albumin 01/01/2024 08:18:24 4.0 3.8-5.0 (g /dL) Final AST (Aspartate aminotransferase) 01/01/2024 08:18:24 11 10-35 (U/L) Fin al Alk Phos 01/01/2024 08:18:24 89 35-130 (U/ L) Final Bilirubin, Total 01/01/2024 08:18:24 0.2 <=1 .2 (mg/dL) Final Calcium 01/01/2024 08:18:24 9.0 8.4-10.2 ( mg/dL) Final Protein 01/01/2024 08:18:24 6.9 6.0-8.3 (g /dL) Final ALT (Alanine aminotransferase) 01/01/2024 08:18:24 6 Below low normal 10-35 (U/L) Final Performing Location [facility] [address] [place] [address]
--- OUTSIDE RECORDS SUMMARY | 2024-02-11 06:50 | External Medical Summary | Summary of Care ---
Author Name Unknown Organization [facility] Address [address] [place] [address] Phone [phone] Care Team Providers Care Lottery Clerk Name Role Phone Unavailable Primary Care Provider Unavailabl e Reason for Visit * Reason Onset Date Comments Medication Management 12/30/2023 Venofer Encounter Details Date Type Department Care Team ([facility] st Contact Info) Description 12/30/2023 Telephone Hematology/Oncology Treatment, [place] [address] [place] [address] Keily Loco CRNP [address] [place] [address] Medication Management (Venofer) Allergies Active [...] group B, by GOLD 2017 classification ([facility]) Inhale 2 Puffs by mouth 4 times a day as needed for Wheezing. 18 g 4 08/16/2022 Active Additional Information Patient not taking.Reported on 10/30/2023 Budeson-Glycopyrrol- Formoterol 160-9-4.8 MCG/ACT Inhalation AerosolIndications:C OPD, group B, by GOLD 2017 classification ([facility]) Inhale 2 Puffs by mouth [...] of right lung 01/29/2022 Unspecified atherosclerosis of [place] arteries of extremities, bilateral legs 12/27/2021 History [...] encounter Miscellaneous Notes * Telephone Encounter - Deisy De La Fuente OSA - 12/31/2023 12:24 PM EDT Called pt she is willing to come in at 815 for labs and 915 for tx for the venofer to be added to her tx * Telephone Encounter - Concepción Bray LPN - 12/31/2023 10:56 AM EDT Scheduling: Please call patient to schedule "Venofer 06/26", Claudy, 2-hour treatment time. Thank you!! Venofer one [...] 11:57 AM EDT Order received for Venofer A[place] plan built and routed to provider No prior authorization required documented in this encounter Plan of Treatment Upcoming Encounters Date Type Department Care Team (Late st Contact Info) Description 01/01/2024 8:15 AM EDT Laboratory Laboratory [facility] [address] [place], [place] [address] Leeann Oconnell [facility] [address] [place], [place] [address] 01/02/2024 1:20 PM EDT Office Visit Family Practice [address] [place] [address] Vidal Barba MD [address] [place] [address] 01/22/2024 10:00 AM EDT Office Visit Hematology/Oncology [facility] [address] [place] [phone] Lisa Lopez MD 200 [place] [address] Health Maintenance Due Date Last Done Comments Alpha-1 Antitrypsin 1968 Cologuard 11/05/1995 Sigmoidoscopy 11/05/1995 Fecal Occult Blood Test 12/16/2012 12/17/2011 DISCUSS TOBACCO CESSATION (REFER TO SMARTSET #6136) 12/29/2015 12/28/2014 (Discussed) Hepatitis B Vaccine (2 [...]
--- OUTSIDE RECORDS SUMMARY | 2024-02-11 06:50 | External Medical Summary ---
Author Name Unknown Address Unknown Organization K09:[facility] [address] [place] [address] Laboratory Report Ordering Provider Test Date Status LEWIS OLIVA 01/01/2024 08:18:24 Final Observation Date Value Abnormality Reference (Units ) Status SYNC LEUKOCYTES IN BLOOD BY AUTOMATED COUNT 01/01/2024 08:18:24 8.49 4.00-10.80 (K/uL) Final Segs 01/01/2024 08:18:24 87.3 Above high normal 40.0-75.0 (%) Final Lymphs % 01/01/2024 08:18:24 11.2 Below low normal 18.0-42.0 (%) Final Monos 01/01/2024 08:18:24 1.3 1.0-11.0 (%) Final Eosinophils 01/01/2024 08:18:24 0.1 0.0-6.0 (%) Final Basos 01/01/2024 08:18:24 0.1 0.0-2.0 (%) Final Absolute Segs 01/01/2024 08:18:24 7.41 1.80-7.70 (K/uL) Final Lymphs, absolute 01/01/2024 08:18:24 0.95 Below low normal 1.00-4.80 (K/ul) Final Monos, Abs 01/01/2024 08:18:24 0.11 0.00-1.10 (K/uL) Final Eos, Abs 01/01/2024 08:18:24 0.01 0.00-0.70 (K/uL) Final Basos, Abs 01/01/2024 08:18:24 0.01 0.00-0.20 (K/uL) Final Performing Location [facility] [address] [place] [address]
--- OUTSIDE RECORDS SUMMARY | 2024-02-11 06:50 | External Medical Summary | Summary of Care ---
Author Name Unknown Organization [facility] Address [address] [place] [address] Phone [phone] Care Team Providers Care Nurse Liaison Name Role Phone Unavailable Primary Care Provider Unavailabl e Reason for Visit * Reason Comments Chemotherapy Hold chemo IV Therapy Venofer 03/28 Encounter Details Date Type Department Care Team (Latest Contact Info) Description 01/01/2024 9:15 AM EDT Hem/Onc Treatment Hematology/Oncology Treatment, [address] [phone] Kourtney, Chair [address] [address] Anemia due to chronic renal failure treated [...] by GOLD 2017 classification ([facility]) Inhale 2 Puffs by mouth 4 times a day as needed for Wheezing. 18 g 4 08/16/2022 Active Additional Information Patient not taking.Reported on 10/30/2023 Budeson-Glycopyrrol- Formoterol 160-9-4.8 MCG/ACT Inhalation AerosolIndications:C OPD, group B, by GOLD 2017 classification ([facility]) Inhale 2 Puffs by mouth daily. [...] of right lung 01/29/2022 Unspecified atherosclerosis of [place] arteries of extremities, bilateral legs 12/27/2021 History [...] Description 01/02/2024 1:20 PM EDT Office Visit [facility] [address] [place] [address] Vidal Barba MD [address] [place] [address] 01/08/2024 9:30 AM EDT Laboratory Laboratory [address] [place] [phone] [place] [address] 01/09/2024 9:45 AM EDT Hem/Onc Treatment Hematology/Oncology Treatment, [place] [address] [place] [address] Kourtney, Chair 2 Hem Onc Scene 200 [facility] [place] [address] 01/15/2024 1:45 PM EDT Hem/Onc Treatment Hematology/Oncology Treatment, [place] [facility], [place] [phone] 01/22/2024 10:00 AM EDT Office Visit Hematology/Oncology [facility] [place] 200 [facility] [place], [place] [address] Lisa Lopez MD 200 [facility] [place], [place] [address] 01/22/2024 10:30 AM EDT [facility] [place] [phone] Kourtney, Chair [address] Hem On[address] [place], [place] [address] Health Maintenance Due Date Last Done Comments [...] device documented in this encounter Administered Medications Active Administered Medications - up to 3 most recent administrations Medication Order MAR Action Action Date Dose Rate Site diphenhydrAMINE (Benadryl) inj 50 mg 50 mg, IV Push, ONCE PRN Other, Hypersensitivity Reaction, Starting on Sat01/01/24 at 1034, Until Staci 01/02/24 at 1033, For 24 hours EPINEPHrine 1 MG/ML inj 0.3 mg 0.3 mg, Intramuscular, ONCE PRN Other, Hypersensitivity Reaction or Anaphylaxis, Starting on Sat01/01/24 at 1034, Until Staci 01/02/24 at 1033, For 24 hours hEParin 100 UNIT/ML Lock Flush inj 500 Units 500 Units (5 mL), IV Lock, PRN Other, IV Flush, Starting on Sat01/01/24 at 1034, Until Sat01/02/24 at 1033, For 24 hours, Do not flush if lock, PICC, or central line not in place; IV infusing or unable to flush. Given 01/01/2024 12:21 PM EDT 500 Units Hydrocortisone Sod Suc (PF) (Solu-Cortef) inj 100 mg 100 mg, IV Push, ONCE PRN Other, Hypersensitivity Reaction, Starting on Sat01/01/24 at 1034, Until Staci 01/02/24 at 1033, For 24 hours NSS infusion 500 mL, Intravenous, at 50 mL/hr, CONTINUOUS, Starting on Sat01/01/24 at 1145, Until Sat01/01/24 at 2144 Start Infusion 01/01/2024 10:38 AM EDT 500 mL 50 mL/hr oxygen GAS Inhalation, OXYGEN, First dose on Sat01/01/24 at 1115, Until Discontinued, Device/Managed by: Low [...] Flush, Starting on Sat01/01/24 at 1034, Until Staci 01/02/24 at 1033, For 24 hours, Do not flush if lock, PICC, or central line not in place; IV infusing or unable to flush. Given 01/01/2024 12:21 PM EDT 10 mL Inactive Administered Medications [...] 2.2 mL of Sterile Water for Injection, PENITENTIARY, into the vial, directing the diluent stream [...] Given 01/01/2024 12:35 PM EDT 2 mg Iron Sucrose (Venofer) 300 mg in NSS 250 mL ivpb 300 mg, IV Piggyback, ONCE, 1 dose, On Sat01/01/24 at 1215, Administer over 90 Minutes Start Infusion 01/01/2024 10:41 AM EDT 300 mg 180 mL/hr documented in this encounter
--- OUTSIDE RECORDS SUMMARY | 2024-02-11 06:50 | External Medical Summary | Summary of Care ---
Author Name Unknown Organization [facility] Address [address] [place] [address] Phone [phone] Care Team Providers Care Car Coupler Name Role Phone Unavailable Primary Care Provider Unavailabl e Reason for Visit * Reason Comments Chemotherapy Hold chemo IV Therapy Venofer 03/28 Encounter Details Date Type Department Care Team (Latest Contact Info) Description 01/01/2024 9:15 AM EDT Hem/Onc Treatment Hematology/Oncology Treatment, [address] [address] Kourtney, Chair [address] [address] Anemia due to chronic renal failure treated [...] of right lung 01/29/2022 Unspecified atherosclerosis of [place] arteries of extremities, bilateral legs 12/27/2021 History [...] Description 01/02/2024 1:20 PM EDT Office Visit [facility] [address] [place] [address] Vidal Barba MD [address] [place] [address] 01/08/2024 9:30 AM EDT Laboratory Laboratory [address] [place] [phone] [place] [address] 01/09/2024 9:45 AM EDT Hem/Onc Treatment Hematology/Oncology Treatment, [place] [address] [place] [address] Kourtney, Chair 2 Hem Onc Scene 200 [facility] [place] [address] 01/15/2024 1:45 PM EDT Hem/Onc Treatment Hematology/Oncology Treatment, [place] 200 [facility], [place] [phone] 01/22/2024 10:00 AM EDT Office Visit Hematology/Oncology [facility] [place] 200 [facility] [place], [place] [address] Lisa Lopez MD 200 [facility] [place], [place] [address] 01/22/2024 10:30 AM EDT Hem[facility] 200 [facility], [place] [phone] Kourtney, Chair 4 Hem On[address] [place], [place] [address] Health Maintenance Due Date Last Done Comments [...] 2.2 mL of Sterile Water for Injection, PRISON, into the vial, directing the diluent stream [...]
--- OUTSIDE RECORDS SUMMARY | 2024-02-11 06:50 | External Medical Summary ---
Author Name Unknown Address Unknown Organization [id number]:[facility] [place] [address] [place] [address] Laboratory Report Ordering Provider Test Date Status LEWIS OLIVA 01/01/2024 08:18:24 Final Observation Date Value Abnormality Reference (Units ) Status TSH 01/01/2024 08:18:24 1.00 0.27-4.20 (uIU/mL) Final Performing Location [facility] [place] [address] [place] [address]
--- OUTSIDE RECORDS SUMMARY | 2024-02-11 06:50 | External Medical Summary ---
Author Name Unknown Address Unknown Organization [id number]:[facility] [place] [address] Laboratory Report Ordering Provider Test Date Status LEWIS OLIVA 01/01/2024 08:18:24 Final Observation Date Value Abnormality Reference (Units ) Status Nucleated erythrocytes/100 leukocytes [Ratio] in Blood by Automated count 01/01/2024 08:18:24 Final Performing Location [facility] [place] [address]
--- OUTSIDE RECORDS SUMMARY | 2024-02-11 06:51 | External Medical Summary | Summary of Care ---
Author Name Unknown Organization [facility] Address [address] [place] [address] Phone [phone] Care Team Providers Care Biostatistics Teacher Name Role Phone Unavailable Primary Care Provider Unavailabl e Reason for Visit * Reason Comments Chemotherapy Chemo/recheck Encounter Details Date Type Department Care Team ([facility] st Contact Info) Description 12/26/2023 9:30 AM EDT Office Visit Hematology/Oncology [facility] 200 [facility] [place] [address] Keily Loco CRNP [address] [place] [address] Non-small cell cancer of right lung (HCC)*; Squamous cell carcinoma of right lung (HCC); 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 18 g 4 08/16/2022 Active Additional Information Patient not taking.Reported on 10/30/2023 Budeson-Glycopyrrol- Formoterol 160-9-4.8 MCG/ACT Inhalation AerosolIndications:C OPD, group B, by GOLD 2017 classification ([facility]) Inhale 2 Puffs by mouth daily. [...] as of this encounter (statuses as of 12/29/2023) Active Problems Problem Noted Date Diagnosed Date CINV (chemotherapy-induced nausea and vomiting) 11/22/2023 Squamous cell lung cancer 11/18/2023 Encounter for antineoplastic chemotherapy 2023 Chronic kidney disease, stage 4 (severe) 024 Overview: Per CKD protocol Malignant neoplasm of lung 07/30/2022 Non-small cell cancer of right lung 01/29/2022 Unspecified atherosclerosis of [place] arteries of extremities, bilateral legs 12/27/2021 History [...] as of this encounter (statuses as of 12/29/2023) Resolved Problems Problem Noted Date Diagnosed Date [...] as of this encounter (statuses as of 12/29/2023) Immunizations Name Administration Dates Next Due COVID-19 [...] Sign Reading Time Taken Comments Blood Pressure 133/66 12/26/2023 9:31 AM EDT Pulse 89 12/26/2023 9:31 AM EDT Temperature 36.2 C (97.1 F) 12/26/2023 9:31 AM ED T Respiratory Rate - - Oxygen Saturation 91% 12/26/2023 9:31 AM EDT Inhaled Oxygen Concentration - - Weight 60.7 kg (133 lb 14.4 oz) 12/26/2023 9:31 AM EDT Height - - Body Mass Index 23.73 11/28/2023 2:37 PM EDT documented in this encounter Progress Notes * Keily Loco CRNP - 12/26/2023 9:30 AM EDT Hematology/Oncology Outpatient Clinic note [facility] [place] [address] [place], [place] [address] Name: Precious Bustillos Date: 12/25/2023 CHIEF COMPLAINT: Precious Bustillos is a 73 year old female patient of Dr. Gonzalez John here today for f/u visit today. From Patient chart confirmed with patient. HEMATOLOGY/ONCOLOGY DIAGNOSIS: Non-small cell lung cancer favor adenocarcinoma - EGFR L858R positive 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. - stage III disease STAGE: T4 N0 stage stage IIIB DATE OF DIAGNOSIS: 12/25/21 CURRENT TREATMENT: Tagrisso 40 mg daily (03/05/22 - ) -dose reduction 04/17/22 d/t toxicity Pembrolizumab and Paclitaxel and Carboplatin every 21 days (12/05/23 - ) Dose reduce Taxol and Carbo by 15% ONCOLOGY HISTORY: Patient with history of multiple medical problems including hypertension, diabetes, aortic ectasia,peripheral artery disease status post bilateral femoral stent and occlusion and stenosis of bilateral carotid artery is diagnosed of non-small [...] with the carcinoma involving the chest wall Immunotherapy Markers Tumor Mutational [place] (TMB): TMB Unit [place] 7.55 m/MB Low Microsatellite Instability Status (MSI): MSI Status 0 Stable Result Detail DNA Variants (SNV and indels): Gene Variant Tier Amino Acid Change Nucleotide Change Consequence Allele Frequency Sequencing Depth EGFR L858R Tier 1: Strong significance [id number]: c.[id number] Missense Variant 9.5 %1986 FANCA [...] 21 of the kinase domain of EGFR. Dr. Barrera from Radiation Oncology does not want to radiate due to it being a large area, pneumonitis is a big concern, and would be also radiating healthy tissue. He said it was hard to make a local case. Dr. Navarro recommendation is systemic treatment. He asked pathology to do an NGS panel. She woulda repeat PET scan done 01/25/2022 which revealed stable nodule along the posterior right lobe and there was a stable non FDG avid nodular opacity in the right breast. EGFR was positive on tumor cells. She will benefit with the Tagrisso. Interval History: She has a 2nd primary in the right lower lobe with the mediastinal lymph nodes metastasis. Because of the limited lung capacity radiation was not an option. She may benefit with combination of chemotherapy including paclitaxel and carboplatin. and immunotherapy. HISTORY OF PRESENT ILLNESS: Precious Bustillos is a 73 year old female with a history as outlined above. Currently here for f/u visit today and consideration for C2D1 of treatment. Patient's main complaint is fatigue today. Denies increasing SOB. Did develop some mouth ulcers last week but they have now resolved. Denies nausea or v omiting. Denies increasing neuropathy. Denies diarrhea. Eating and drinking well. Past Medical History: Diagnosis Date JESIKA inhibitor intolerance 12/28/2014 Ankle joint pain 01/23 ? gout Anxiety state 1995 ARB intolerance 12/28/2014 Atrial septal aneurysm 07/04/2016 Carpal tunnel syndrome Cervical intraepithelial neoplasia grade 2 06/09/2010 [facility] 02/26/11-[facility] Chronic fatigue 03/01/2016 Chronic migraine without [...] right hip 01/15/2018 PVD (peripheral vascular disease) ([facility]) 10/09/2019 Recurrent major depressive disorder, in partial remission ([facility]) 01/15/2018 S/P arterial stent 10/09/2019 Left leg [...] hemoglobin A1c goal of less than 7.0% ([facility]) 10/13/2012 Past Surgical History: Procedure Laterality Date ARTHROPLASTY KNEE TOTAL 01/2009 BRONCHOSCOPY, DIAGNOSTIC N/A 10/04/2021 BRONCHOSCOPY DIAGNOSTIC WITH OR WITHOUT WASHING performed by Luis Willett MD at ENDOSCOPY [facility] BRONCHOSCOPY, DIAGNOSTIC N/A 12/25/2021 BRONCHOSCOPY DIAGNOSTIC WITH OR WITHOUT WASHING performed by Luis Willett MD at ENDOSCOPY [facility] COLONOSCOPY 10/28 IR BIOPSY 10/30/2023 LAPAROSCOPY; CHOLECYSTECTOMY TOTAL HIP REPLACEMENT & PROSTHESIS Left 07/2016 TOTAL HIP REPLACEMENT & PROSTHESIS Right 01/2018 TOTAL HYSTERECTOMY 02/26/11 +BSO-benign Social History Socioeconomic History Marital status: Spouse name: Not on file Number of children: Not on file Years of education: Not on file Highest education level: Not on file Occupational History Not on file Tobacco Use Smoking status: Every Day Current packs/day: 1.00 Average packs/day: 1 pack/day for 45.0 years (45.0 ttl pk-yrs) Types: Cigarettes Smokeless tobacco: Never Substance and Sexual Activity Alcohol use: No Drug use: No Sexual activity: Not on file Other Topics Concern Not on file Social History Narrative Not on file Social Determinants of Health Financial Resource Strain: Not on file Food Insecurity: No Food Insecurity (10/09/2019) Hunger Vital Sign Worried About Running Out of Food in the Last Year: Never true Ran Out of Food in the Last Year: Never true Transportation Needs: Not on file Social Connections: Unknown (09/10/2023) Social Connections How often do you feel lonely or isolated from those around you? (Adult - for ages 18 years and over): Not on file Housing Stability: Not on file Review of patient's allergies indicates: Allergen Reactions Lipitor [Atorvastatin Calcium] Muscle pain Lisinopril Other (Please comment) Hyperkalemia, possible renal insuff. Zocor [Simvastatin] Muscle pain Also on Tricor and Cardizem Aleve [Naproxen Sodium] Ciprofloxacin Exenatide Flagyl [Metronidazole Hcl] Unsure of reaction - thinks was nausea Nsaids Other reaction(s): Unknown Current Outpatient Medications Medication Sig Dispense Refill ONETOUCH ULTRA BLUE STRP Test sugar once daily and for [...] taking: Reported on 10/30/2023) 18 g 4 Lzioovl-Rkabfwxzmdx-Jypyduwwdu 160-9-4.8 MCG/ACT Inhalation Aerosol Inhale 2 Puffs [...] 1HR PRIOR TO ACCESSING. 30 g 0 No current facility-administered medications for this visit. REVIEW OF SYSTEMS: See HPI - otherwise negative OBJECTIVE: Filed Vitals: 12/26/23 0931 BP: 133/66 Pulse: 89 Temp: 36.2 C (97.1 F) TempSrc: Tympanic SpO2: 91% Weight: 60.7 kg (133 lb 14.4 oz) Wt Readings from Last 5 Encounters: 12/26/23 60.7 kg (133 lb 14.4 oz) 12/05/23 58.3 kg (128 lb 9.6 oz) 11/28/23 60.4 kg (133 lb 3.2 oz) 11/27/23 60.4 kg (133 lb 1.6 oz) 11/18/23 60.2 kg (132 lb 11.2 oz) PHYSICAL EXAM: ECOG: Performance Status 1 = 80-90% Symptoms but nearly ambulatory General Appearance: No acute distress HEENT: Normal - No oral or pharyngeal masses, ulceration or thrush noted Lymph Nodes: Normal - No palpable lymph nodes in the neck or supraclavicular areas Lungs/Thorax: +diminished throughout with expiratory wheezing Heart: Normal - Regular rate and rhythm, normal S1, S2, no appreciable murmurs Pulses/Extremities: Normal - 2+ throughout and symmetrical, no edema Neurologic: Normal - Grossly intact LABS: Results for orders placed or performed in visit on 12/25/23 COMPREHENSIVE METABOLIC PANEL Result Value Ref Range BUN 20 6 - 20 mg/dL CREATININE 1.7 (H) 0.5 - 1.0 mg/dL EGFR 32 (L) >=60 mL/min SODIUM 129 (L) 135 - 146 mmol/L POTASSIUM 4.5 3.5 - 5.1 mmol/L CHLORIDE 91 (L) 98 - 107 mmol/L CO2 24 22 - 32 mmol/L ANION GAP 14 7 - 15 mmol/L GLUCOSE 116 70 - 120 mg/dL Albumin 3.5 (L) 3.8 - 5.0 g/dL AST 12 10 - 35 U/L Alkaline Phosphatase 97 35 - 130 U/L Bilirubin, Total 0.2 <=1.2 mg/dL CALCIUM 8.7 8.4 - 10.2 mg/dL Protein 5.8 (L) 6.0 - 8.3 g/dL ALT 6 (L) 10 - 35 U/L TSH WITH FREE T4 IF INDICATED Result Value Ref Range TSH 1.76 0.27 - 4.20 uIU/mL CBC Result Value Ref Range WBC 10.11 4.00 - 10.80 K/uL RBC 2.81 3.85 - 5.15 M/uL HGB 7.6 (L) 12.0 - 15.3 g/dL HCT 23.4 (L) 36.0 - 45.2 % MCV 83.3 81.5 - 97.5 fL MCH 27.0 27.0 - 34.0 pg MCHC 32.5 32.0 - 36.0 g/dL RDW 17.5 11.5 - 15.5 % PLT 256 140 - 400 K/uL MPV 9.8 6.6 - 11.1 fL nRBCs 0 <=0 /100 WBCs DIFFERENTIAL, AUTOMATED Result Value Ref Range WBC 10.11 4.00 - 10.80 K/uL Neutrophils % 74.5 40.0 - 75.0 % Lymphocytes % 14.5 (L) 18.0 - 42.0 % Monocytes % 6.6 1.0 - 11.0 % Eosinophils % 2.9 0.0 - 6.0 % Basophils % 0.4 0.0 - 2.0 % Immature Granulocytes % 1.1 0.0 - 2.0 % Absolute Neutrophils 7.53 1.80 - 7.70 K/uL Absolute Lymphocytes 1.47 1.00 - 4.80 K/ul Absolute Monocytes 0.67 0.00 - 1.10 K/uL Absolute Eosinophils 0.29 0.00 - 0.70 K/uL Absolute Basophils 0.04 0.00 - 0.20 K/uL Absolute Immature Granulocytes 0.11 0.00 - 0.20 K/uL RETICULOCYTE PANEL Result Value Ref Range Reticulocyte Percent 1.86 0.80 - 1.90 % Absolute Reticulocyte 52.8 31.3 - 100.1 K/uL Immature Reticuloctye Fraction 23.4 (H) 2.5 - 20.6 % Reticulocyte Hemoglobin 29.5 (L) 29.7 - 37.4 pg *Note: Due to a large number of results and/or encounters for the requested time period, some results have not been displayed. A complete set of results can be found in Results Review. IMPRESSION/PLAN: Non-small cell lung cancer favor adenocarcinoma - EGFR L858R positive Squamous cell carcinoma of right lower lobe Anemia in CKD stage IV Hyponatremia Continue Tagrisso 40 mg daily - tolerating well -continue to follow with MTM - appreciate recommendations Follow-up PET/CT in August showed significant increase in the right lower lobe lung mass with lymph node metastasis. There is a question that this may be 2nd primary friend then the upper lobe mass kelsi biopsy. Biopsies from the right lower lobe lung nodule is positive for squamous cell carcinoma which is different disease then right upper lobe which was adenocarcinoma. She has a 2nd primary in the right lower lobe with the mediastinal lymph nodes metastasis. Because of the limited lung capacity radiation was not an option. She may benefit with combination of chemotherapy including paclitaxel and carboplatin and Keytruda. Received first cycle on 12/05/23 with 15% chemotherapy dose redu ction. Lab results reviewed: -renal function stable with creatinine of 1.7 -NA 129 -Hgb has declined to 7.6 -ferritin, iron screen, vitamin b12 and folic acid currently pending D/T anemia will need to defer C2D1 x 1 week. Offered PRBC transfusion today but patient declined. Will await results of anemia work up. If no deficiencies found can consider for LEI. Briefly discussed this with patient today and she verbalized understanding and that she would be agreeable to receiving medication. Smoking cessation encouraged Will plan for restaging PET/CT s/p four cycles of treatment. ADDENDUM: TSAT low at 8 % Patient may benefit from IV iron therapy Order placed for IV Venofer 300 mg weekly x 4 infusions RTC in four weeks with physician for chemo return KARIN West documented in this encounter Nursing Notes * Wendi Richards CMA - 12/26/2023 9:31 AM EDT Patient identifed by name and birthdate Do you have any concerns about pain management for today's visit? No Living Will or Advance Directive for Health Care as noted on the problem list. [facility] is a way you can talk to your provider on line through e-mail. Would you like to sign up? I can activate it for you? NO Filed Vitals: 12/26/23 0931 BP: 133/66 Pulse: 89 Temp: 36.2 C (97.1 F) TempSrc: Tympanic SpO2: 91% Weight: 60.7 kg (133 lb 14.4 oz) Patient was instructed to not get [...] Description 01/01/2024 9:50 AM EDT Laboratory Laboratory [facility] [place] [address] [place] [phone] Kourtney, Lab Scenery [address] [place] [address] 01/01/2024 11:00 AM EDT Hem/Onc Treatment Hematology/Oncology Treatment, [place] [address] [place] [phone] Kourtney, Chair 3 Hem Onc Scene [address] [place] [address] 01/02/2024 1:20 PM EDT Office [facility] [address] [place] [address] Vidal Barba MD [address] [place] [address] 01/22/2024 10:00 AM EDT Office Visit Hematology/Oncology [facility] [place] [address] [place] [phone] Lisa Lopez MD [address] [place] [address] Health Maintenance Due Date Last Done Comments [...] cell cancer of right lung (HCC)- Primary Squamous cell carcinoma of right lung (HCC) 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
--- OUTSIDE RECORDS SUMMARY | 2024-02-11 06:51 | External Medical Summary | Summary of Care ---
Author Name Unknown Organization [facility] Address [address] [place] [address] Phone [phone] Care Team Providers Care Sliver Handler Name Role Phone Unavailable Primary Care Provider Unavailabl e Encounter Details Date Type Department Care Team ([facility] st Contact Info) Description 12/26/2023 Orders Only Hematology/Oncology [facility] [place] [address] [facility] [place] [address] Kem Young MD 200 [facility] [place] [address] Squamous cell carcinoma of right lung (HCC)*; Anemia due to antineoplastic chemotherapy Allergies Active Allergy Reactions Criticality [...] as of this encounter (statuses as of 12/27/2023) Medications Medication Sig Dispensed Refills Start Date [...] as of this encounter (statuses as of 12/27/2023) Active Problems Problem Noted Date Diagnosed Date CINV (chemotherapy-induced nausea and vomiting) 11/22/2023 Squamous cell lung cancer 11/18/2023 Encounter for antineoplastic chemotherapy 2023 Chronic kidney disease, stage 4 (severe) 024 Overview: Per CKD protocol Malignant neoplasm of lung 07/30/2022 Non-small cell cancer of right lung 01/29/2022 Unspecified atherosclerosis of [place] arteries of extremities, bilateral legs 12/27/2021 History [...] as of this encounter (statuses as of 12/27/2023) Resolved Problems Problem Noted Date Diagnosed Date [...] as of this encounter (statuses as of 12/27/2023) Immunizations Name Administration Dates Next Due COVID-19 [...] Description 01/01/2024 9:50 AM EDT Laboratory Laboratory [facility] [place] [address] [place] [phone] Kourtney Lab [facility] [address] [facility] [place] [address] 01/01/2024 11:00 AM EDT Hem/Onc Treatment Hematology/Oncology Treatment, [place] [address] [place] [phone] Kourtney, Chair 3 Hem Onc Scene [address] [place] [address] 01/02/2024 1:20 PM EDT Office Visit Family Practice [address] [place] [address] [place] [address] Vidal Barba MD [address] [place] [address] 01/22/2024 10:00 AM EDT Office [facility] [address] [facility] [place] [address] Lisa Lopez MD [address] [place], [place] [address] Health Maintenance Due Date Last Done Comments Alpha-1 Antitrypsin 1968 Cologuard 11/05/1995 Sigmoidoscopy 11/05/1995 Fecal Occult Blood Test 12/16/2012 12/17/2011 DISCUSS TOBACCO CESSATION (REFER TO SMARTSET #3299) 12/29/2015 12/28/2014 (Discussed) Hepatitis B Vaccine (2 [...] Not on filedocumented as of this encounter Results * (ABNORMAL) RETICULOCYTE PANEL (12/25/2023 10:36 AM EDT) Reticulocyte Percent 1.86 0.80 - 1.90 % 12/26/2023 7:02 AM EDT LAB[facility]ORY [facility] Absolute Reticulocyte 52.8 31.3 - 100.1 K/uL 12/26/2023 7:02 AM EDT [facility] Immature Reticuloctye Fraction 23.4(H) 2.5 - 20.6 % 12/26/2023 7:02 AM EDT LAB[facility]ORY [facility] Reticulocyte Hemoglobin 29.5(L) 29.7 - 37.4 pg 12/26/2023 7:02 AM EDT [facility] Blood Venous blood specimen / Unknown Venipuncture / Unknown 12/25/2023 10:36 AM EDT 12/25/2023 10:36 AM EDT Kem Young MD LAB BLOOD ORDERABLES Performing Organization Address City/[facility]/ZIP Co de Phone Number LAB[facility]ATORY [facility] [address] [place] [address] * (ABNORMAL) FERRITIN (12/25/2023 10:36 AM EDT) Ferritin 249(H) 13 - 150 ng/mL 12/26/2023 11:03 AM EDT LAB[facility]ORY [facility] Comment:Postmenopausal women have higher ferritin levels than pre-menopausal women. The above reference interval is based on pre-menopausal women. Blood Venous blood specimen / Unknown Venipuncture / Unknown 12/25/2023 10:36 AM EDT 12/25/2023 10:36 AM EDT Kem Young MD LAB BLOOD ORDERABLES Performing Organization Address City/[facility] Co de Phone Number LABORATORY [place] [address] [place] [address] * (ABNORMAL) IRON SCREEN, INCLUDING TIBC (12/25/2023 10:36 AM EDT) Iron 20(L) 33 - 151 ug/dL 12/26/2023 11:17 AM EDT [facility] Iron Binding Capacity 241(L) 250 - 425 ug/dL 12/26/2023 11:17 AM EDT [facility] Transferrin Saturation Percent 8(L) 15 - 55 % 12/26/2023 11:17 AM EDT [facility] Blood Venous blood specimen / Unknown Venipuncture / Unknown 12/25/2023 10:36 AM EDT 12/25/2023 10:36 AM EDT Kem Young MD LAB BLOOD ORDERABLES Performing Organization Address City/[facility]/ZIP Co de Phone Number LABORATORY [facility] [address] [place] [address] * FOLIC ACID (12/25/2023 10:36 AM EDT) Folic Acid 6.5 >4.5 ng/mL 12/26/2023 11:03 AM EDT LABORATORY C Blood Venous blood specimen / Unknown Venipuncture / Unknown 12/25/2023 10:36 AM EDT 12/25/2023 10:36 AM EDT Kem Young MD LAB BLOOD ORDERABLES Performing Organization Address [facility] de Phone Number LABORATORY [facility] [address] [place] [address] * VITAMIN B12 (12/25/2023 10:36 AM EDT) Vitamin B12 623 232 - 1,245 pg/mL 12/26/2023 11:03 AM EDT LAB[facility]ATORY [facility] Blood Venous blood specimen / Unknown Venipuncture / Unknown 12/25/2023 10:36 AM EDT 12/25/2023 10:36 AM EDT Kem Young MD LAB BLOOD ORDERABLES Performing Organization Address [facility] Co de Phone Number LAB[facility]ATORY [facility] [address] [place] [address] documented in this encounter Visit Diagnoses Diagnosis Squamous cell carcinoma of right lung (HCC)- Primary Anemia due to antineoplastic chemotherapy Antineoplastic chemotherapy induced anemia documented in this encounter
--- OUTSIDE RECORDS SUMMARY | 2024-02-11 06:51 | External Medical Summary | Summary of Care ---
Author Name Unknown Organization [facility] Address [address] [place] [address] Phone [phone] Care Team Providers Care Acid Pumper Name Role Phone Unavailable Primary Care Provider Unavailabl e Reason for Visit * Reason Comments Chemotherapy Treatment held Encounter Details Date Type Department Care Team ([facility] st Contact Info) Description 12/26/2023 10:00 AM EDT Hem/Onc Treatment Hematology/Oncology Treatment, [place] [address] [facility] [place] [address] Kourtney, Chair 10 Hem Onc [address] [place] [address] Arrived Allergies Active Allergy Reactions Criticality Noted Date [...] as of this encounter (statuses as of 12/26/2023) Medications Medication Sig Dispensed Refills Start Date [...] COPD, group B, by GOLD 2017 classification ([facility]) Inhale 2 Puffs by mouth 4 times a day as needed for Wheezing. 18 g 4 08/16/2022 Active Additional Information Patient not taking.Reported on 10/30/2023 Budeson-Glycopyrrol- Formoterol 160-9-4.8 MCG/ACT Inhalation AerosolIndications:C OPD, group B, by GOLD 2017 classification ([facility]) Inhale 2 Puffs by mouth [...] XL)Indications:MDD (major depressive disorder), recurrent episode, moderate ([facility]) Take 1 Tablet by mouth in the [...] as of this encounter (statuses as of 12/26/2023) Active Problems Problem Noted Date Diagnosed Date CINV (chemotherapy-induced nausea and vomiting) 11/22/2023 Squamous cell lung cancer 11/18/2023 Encounter for antineoplastic chemotherapy 2023 Chronic kidney disease, stage 4 (severe) 024 Overview: Per CKD protocol Malignant neoplasm of lung 07/30/2022 Non-small cell cancer of right lung 01/29/2022 Unspecified atherosclerosis of [place] arteries of extremities, bilateral legs 12/27/2021 History [...] as of this encounter (statuses as of 12/26/2023) Resolved Problems Problem Noted Date Diagnosed Date [...] as of this encounter (statuses as of 12/26/2023) Immunizations Name Administration Dates Next Due COVID-19 [...] as of this encounter Nursing Notes * Maddi Pak, RN - 12/26/2023 10:09 AM EDT Patient saw Keily FRAZIER today, treatment held for 1 week. documented in this encounter Plan of Treatment Upcoming Encounters Date Type Department Care Team (Late st Contact Info) Description 01/01/2024 9:50 AM EDT Laboratory Laboratory Gregg Oconnell [place] [address] [place] [phone] Leeann Oconnell [address] [place] [address] 01/01/2024 11:00 AM EDT Hem/Onc Treatment Hematology/Oncology Treatment, [place] [address] [place], [place] [phone] Park, Chair 3 Hem Onc [address] 200 [facility] [place] [address] 01/02/2024 1:20 PM EDT Office Visit [facility] [address] [place] [address] Vidal Barba MD [address] [place] [address] 01/22/2024 10:00 AM EDT Office Visit Hematology/Oncology [facility] [place] [address] [place] [phone] Lisa Lopez MD [address] [place] [address] Health Maintenance Due Date Last Done Comments [...] - Td or Tdap) 01/29/2023 01/29/2013, 10/28/2006 B-12 07/31/2023 07/30/2022, 04/0 11/2017, 03/01/2016 Nephrology Referral 08/14/2023 08/13/2022 COVID-19 Vaccine ( [...] 10/21/2024 10/22/2023, 09/23, 09/02/2019, Additional history exists Hgb 12/24/2024 12/25/2023, 11/23, [...]
--- OUTSIDE RECORDS SUMMARY | 2024-02-11 06:51 | External Medical Summary | Summary of Care ---
Author Name Unknown Organization [facility] Address [address] [place] [address] Phone [phone] Care Team Providers Care Commercial Ocean Clammer Name Role Phone Unavailable Primary Care Provider Unavailabl e Encounter Details Date Type Department Care Team (Late st Contact Info) Description 12/26/2023 Orders Only Hematology/Oncology [facility] Kourtney [place] 200 [facility] [place] [place] [address] Lisa Lopez MD [address] [place] [address] Allergies Active Allergy Reactions Criticality Noted Date [...] group B, by GOLD 2017 classification ([facility]) Inhale 2 Puffs by mouth 4 times a day as needed for Wheezing. 18 g 4 08/16/2022 Active Additional Information Patient not taking.Reported on 10/30/2023 Budeson-Glycopyrrol- Formoterol 160-9-4.8 MCG/ACT Inhalation AerosolIndications:C OPD, group B, by GOLD 2017 classification ([facility]) Inhale 2 Puffs by mouth [...] lung 01/29/2022 Unspecified atherosclerosis of [place] arteries of extremities, bilateral legs 12/27/2021 History [...] 9:50 AM EDT Laboratory Laboratory Gregg Oconnell [place] [address] [place] [phone] Lee[address] [facility] [place] [address] 01/01/2024 11:00 AM EDT Hem/Onc Treatment Hematology/Oncology Treatment, [place] [address] [place] [phone] Kourtney, Chair 3 Hem Onc [facility] [address] [place] [address] 01/02/2024 1:20 PM EDT Office Visit Family Practice [address] [place] [address] Vidal Barba MD [address] [place] [address] 01/22/2024 10:00 AM EDT Office Visit Hematology/Oncology Gregg Oconnell [place] 200 [facility] [place] [address] Lisa Lopez MD 200 [facility] [place], [place] [address] Health Maintenance Due Date Last Done Comments [...] 12/25/2023, 0510/2022, 07/01/2017, Additional history exists Hgb 12/24/2024 12/25/2023, [...]
--- OUTSIDE RECORDS SUMMARY | 2024-02-11 06:52 | External Medical Summary ---
Author Name Unknown Address Unknown Organization [id number]:LABORATORY [facility] [place] - [address] [place] [address] Laboratory Report Ordering Provider Test Date Status LEWIS OLIVA 12/25/2023 10:36:51 Final Observation Date Value Abnormality Reference (Units ) Status TSH 12/25/2023 10:36:51 1.76 0.27-4.20 (uIU/mL) Final Performing Location LABORATORY [facility] [place] - [address] [place] [address]
--- OUTSIDE RECORDS SUMMARY | 2024-02-11 06:52 | External Medical Summary ---
Author Name Unknown Address Unknown Organization [id number]:[facility] [address] [facility] [address] [facility] [address] Laboratory Report Ordering Provider Test Date Status LEWIS OLIVA 12/25/2023 10:36:51 Final Observation Date Value Abnormality Reference (Units ) Status WBC, Total 12/25/2023 10:36:51 10.11 4.00-10.80 (K/uL) Final RBC 12/25/2023 10:36:51 2.81 3.85-5.15 (M/uL) Final Hemoglobin 12/25/2023 10:36:51 7.6 Below low normal 12.0-15.3 (g/dL) Final HCT 12/25/2023 10:36:51 23.4 Below low normal 36.0-45.2 (%) Final MCV 12/25/2023 10:36:51 83.3 81.5-97.5 (fL) Final MCH 12/25/2023 10:36:51 27.0 27.0-34.0 (pg) Final MCHC 12/25/2023 10:36:51 32.5 32.0-36.0 (g/dL) Final RDW 12/25/2023 10:36:51 17.5 11.5-15.5 (%) Final Platelets 12/25/2023 10:36:51 256 140-400 (K/uL) Final MPV 12/25/2023 10:36:51 9.8 6.6-11.1 (fL) Final Nucleated erythrocytes/100 leukocytes [Ratio] in Blood by Automated count 12/25/2023 10:36:51 0 <=0 (/100 WBCs) Final Performing Location [facility] [place] [address] [place] [address]
--- OUTSIDE RECORDS SUMMARY | 2024-02-11 06:52 | External Medical Summary | Summary of Care ---
Author Name Unknown Organization [facility] Address [address] [place] [address] Phone [phone] Care Team Providers Care Tallow Maker Name Role Phone Unavailable Primary Care Provider Unavailabl e Encounter Details Date Type Department Care Team (Late st Contact Info) Description 12/23/2023 Orders Only General Surgery, [facility] [address] [place] [address] Luis Pascal MD [address] [place] [address] Allergies Active Allergy Reactions Criticality Noted Date [...] as of this encounter (statuses as of 12/23/2023) Medications Medication Sig Dispensed Refills Start Date [...] as of this encounter (statuses as of 12/23/2023) Active Problems Problem Noted Date Diagnosed Date CINV (chemotherapy-induced nausea and vomiting) 11/22/2023 Squamous cell lung cancer 11/18/2023 Encounter for antineoplastic chemotherapy 2023 Chronic kidney disease, stage 4 (severe) 024 Overview: Per CKD protocol Malignant neoplasm of lung 07/30/2022 Non-small cell cancer of right lung 01/29/2022 Unspecified atherosclerosis of [place] arteries of extremities, bilateral legs 12/27/2021 History [...] arterial stent 10/09/2019 Overview: Left leg 08/11 Personal history of colonic polyps 01/21/2019 Overview: Overview Signed 10/29/2018 12:46 PM by Addy Leblanc MD Three tubular adenomas removed during colonoscopy 11/10. Asymptomatic stenosis of right carotid artery Primary [...] as of this encounter (statuses as of 12/23/2023) Resolved Problems Problem Noted Date Diagnosed Date [...] as of this encounter (statuses as of 12/23/2023) Immunizations Name Administration Dates Next Due COVID-19 mRNA, LNP-s, No Pre serve, 2-Dose Series (Moderna) 09/10/2020,08/15/2020 COVID-19, mRNA, LNP-s, PF, B ooster, 100mcg/0.5mg (Moderna) 03/09/2021 Diptheria/Tetanus (Adult) 10/28/2006 H1N1 2009 Influenza, IM 01/01/2009 Hepatitis B, 20+ yrs 07/04/2016 Pneumococcal Conjugate Vacc, 13 Valent (Prevnar) 11/22/2015 Pneumococcal Polysaccharide PPV23 (Pneumovax) 01/15/2017,07/20/2006 Season Influenza, Quad, PF, Adjuvanted, 65+ Yrs, IM (FLUAD) 01/05/2020 Seasonal Influenza, High Dos e, Trivalent, PF, IM (Fluzone HD) 11/27/2023,01/15/2017 Seasonal Influenza, PF, 6 M & above, IM , (FluLaval or Fluzone) 01/15/2018 Seasonal Influenza, Quadriva lent Hd (Fluzone Hd) 12/27/2021,12/22/2020 Seasonal Influenza, Quadriva lent, No Preserve, IM 01/14/2016,12/28/2014 Seasonal Influenza, Trivalen t, (IIV3), with Preserv, (Fluzone) 01/06/2014,03/19/2013,01/11/2011,12/30,12/30/2008 Seasonal Influenza, Trivalen t, Adjuvanted, 65+ YRS, [...] Care Team (Late st Contact Info) Description 12/25/2023 10:00 AM EDT Laboratory Laboratory [place] [address] [place] [phone] Leeann [address] [place] [address] [place] [address] 12/26/2023 9:30 AM EDT Office Visit Hematology/Oncology Gregg Oconnell [place] [address] [place] [address] Keily Loco CRNP [address] [place] [address] 12/26/2023 10:00 AM EDT Hem/Onc Treatment Hematology/Oncology Treatment, [place] [address] [place] [phone] Kourtney, Chair 10 Hem Onc [address] [place] [address] 01/02/2024 1:20 PM EDT Office Visit Family Practice [address] [place] [address] Vidal Barba MD [address] [place] [address] Health Maintenance Due Date Last Done Comments [...] 09/11/2023, 06/23, 10/30/2022, Additional history exists GFR 06/01/2024 12/03/2023, 09/23, 09/11/2023, Additional history exists AAA Monitoring 09/09/2024 09/10/2023, 10/24, 11/24/2021, Additional history exists Albumin/Creatinine Ratio 09/10/2024 024, 04/29/2023, 01/11/2023, Additional history exists PTH 09/10/2024 09/11/2023, 12/24, 10/09/2019 Phosphate 09/10/2024 09/11/2023, 01/23, 01/11/2023, Additional history exists Mammogram 10/21/2024 10/22/2023, 09/23, 09/02/2019, Additional history exists Hgb 12/02/2024 12/03/2023, 080 09/2023, 10/14/2023, Additional history exists O2 ASSESSMENT COMPLETED IN PAST YEAR FOR COPD 12/04/2024 12/05/2023 Colonoscopy 10/21/2028 10/21/2018, 04/03/2011 Colorectal Cancer Screening [...] Procedure Name Priority Date/Time Associated Diagnosis Comments XR CHEST 1 VIEW Routine 12/16/2023 documented in this encounter Results * XR CHEST 1 VIEW (12/16/2023) Anatomical Region Laterality Modality Chest Other 12/16/2023 History Per Patient RADIOLOGY (RAD GENER AL) documented in this encounter
--- OUTSIDE RECORDS SUMMARY | 2024-02-11 06:52 | External Medical Summary | Summary of Care ---
Author Name Unknown Organization [facility] Address [address] [place] [address] Phone [phone] Care Team Providers Care Real Estate Consultant Name Role Phone Unavailable Primary Care Provider Unavailabl e Reason for Visit * Reason Comments Outpatient Testing Encounter Details Date Type Department Care Team ([facility] st Contact Info) Description 12/25/2023 10:00 AM EDT Laboratory Laboratory [facility] [address] [place] [address] [facility] [address] [place], [place] [phone] Non-small cell cancer of right lung (HCC) [...] as of this encounter (statuses as of 12/25/2023) Medications Medication Sig Dispensed Refills Start Date [...] 2017 classification ([facility]) Inhale 2 Puffs by mouth 4 times a day as needed for Wheezing. 18 g 4 08/16/2022 Active Additional Information Patient not taking.Reported on 10/30/2023 Budeson-Glycopyrrol- Formoterol 160-9-4.8 MCG/ACT Inhalation AerosolIndications:C OPD, group B, by GOLD 2017 classification ([facility]) Inhale 2 Puffs by mouth daily. Breztri [...] as of this encounter (statuses as of 12/25/2023) Active Problems Problem Noted Date Diagnosed Date CINV (chemotherapy-induced nausea and vomiting) 11/22/2023 Squamous cell lung cancer 11/18/2023 Encounter for antineoplastic chemotherapy 2023 Chronic kidney disease, stage 4 (severe) 024 Overview: Per CKD protocol Malignant neoplasm of lung 07/30/2022 Non-small cell cancer of right lung 01/29/2022 Unspecified atherosclerosis of [place] arteries of extremities, bilateral legs 12/27/2021 History [...] as of this encounter (statuses as of 12/25/2023) Resolved Problems Problem Noted Date Diagnosed Date [...] as of this encounter (statuses as of 12/25/2023) Immunizations Name Administration Dates Next Due COVID-19 [...] Team (Late st Contact Info) Description 12/26/2023 9:30 AM EDT Office [facility] [place] [address] [facility] [place] [phone] Keily Loco CRNP [address] [facility] [place] [phone] 12/26/2023 10:00 AM EDT Hem/Onc Treatment Hematology/Oncology Treatment, [place] [address] [facility] [address] [place] [phone] Kourtney, Chair 10 Hem Onc [address] [place] [address] 01/02/2024 1:20 PM EDT Office Visit Family Practice [address] [place] [address] Vidal Barba MD [address] [place] [address] Pending Results Name Type Priority Associated Diagnoses Date /Time CBC WITH WBC DIFFERENTIAL Lab STAT Non-small cell cancer of right lung (HCC) 12/25/2023 10:36 AM EDT COMPREHENSIVE METABOLIC PANEL Lab STAT Non-small cell cancer of right lung (HCC) 12/25/2023 10:36 AM EDT TSH WITH FREE T4 IF INDICATED Lab STAT Non-small cell cancer of right lung (HCC) 12/25/2023 10:36 AM EDT CBC Lab STAT Non-small cell cancer of right lung (HCC) 12/25/2023 10:36 AM EDT DIFFERENTIAL, AUTOMATED Lab STAT Non-small cell cancer of right lung (HCC) 12/25/2023 10:36 AM EDT Health Maintenance Due Date Last [...] 09/02/2019, Additional history exists Hgb 12/02/2024 12/03/2023, 0809/2023, 10/14/2023, Additional history exists O2 ASSESSMENT COMPLETED [...]
--- OUTSIDE RECORDS SUMMARY | 2024-02-11 06:52 | External Medical Summary ---
Author Name Unknown Address Unknown Organization [id number]:[facility] [place] [address] [place] [address] Laboratory Report Ordering Provider Test Date Status SHAWN MALDONADO 12/25/2023 10:36:51 Final Observation Date Value Abnormality Reference (Units ) Status Iron 12/25/2023 10:36:51 20 Below low normal 33-151 (ug/dL) Final Iron-binding capacity 12/25/2023 10:36:51 241 Below low normal 250-425 (ug/dL) Final Transferrin Sat % 12/25/2023 10:36:51 8 Below low normal 15-55 (%) Final Performing Location [facility] [place] [address] [place] [address]
--- OUTSIDE RECORDS SUMMARY | 2024-02-11 06:52 | External Medical Summary ---
Author Name Unknown Address Unknown Organization [id number]:[facility] [place] [address] [facility] [address] Laboratory Report Ordering Provider Test Date Status LEWIS OLIVA 12/25/2023 10:36:51 Final Observation Date Value Abnormality Reference (Units ) Status SYNC LEUKOCYTES IN BLOOD BY AUTOMATED COUNT 12/25/2023 10:36:51 10.11 4.00-10.80 (K/uL) Final Segs 12/25/2023 10:36:51 74.5 40.0-75.0 (%) Final Lymphs % 12/25/2023 10:36:51 14.5 Below low normal 18.0-42.0 (%) Final Monos 12/25/2023 10:36:51 6.6 1.0-11.0 (%) Final Eosinophils 12/25/2023 10:36:51 2.9 0.0-6.0 (%) Final Basos 12/25/2023 10:36:51 0.4 0.0-2.0 (%) Final Immature Granulocyte, Percent 12/25/2023 10:36:51 1.1 0.0-2.0 (%) Final Absolute Segs 12/25/2023 10:36:51 7.53 1.80-7.70 (K/uL) Final Lymphs, absolute 12/25/2023 10:36:51 1.47 1.00-4.80 (K/ul) Final Monos, Abs 12/25/2023 10:36:51 0.67 0.00-1.10 (K/uL) Final Eos, Abs 12/25/2023 10:36:51 0.29 0.00-0.70 (K/uL) Final Basos, Abs 12/25/2023 10:36:51 0.04 0.00-0.20 (K/uL) Final Immature Granulocytes, Number 12/25/2023 10:36:51 0.11 0.00-0.20 (K/uL) Final Performing Location LAB[facility]ORY [facility] [place] - [facility] [address] [facility] [address]
--- OUTSIDE RECORDS SUMMARY | 2024-02-11 06:52 | External Medical Summary ---
Author Name Unknown Address Unknown Organization [id number]:[facility] [place] [address] [facility] [address] Laboratory Report Ordering Provider Test Date Status LEWIS OLIVA 12/25/2023 10:36:51 Final Observation Date Value Abnormality Reference (Units ) Status BUN 12/25/2023 10:36:51 20 6-20 (mg/dL) Final Creatinine 12/25/2023 10:36:51 1.7 Above high normal 0.5-1.0 (mg/dL) Final Glomerular filtration rate/1.73 sq M.predicted [Volume Rate/Area] in Serum, Plasma or Blood by Creatinine-based formula (CKD-EPI) 12/25/2023 10:36:51 32 Below low normal >=60 (mL/min) Final eGFR is calculated based on the CKD-EPI 2020 equation. Sodium 12/25/2023 10:36:51 129 Below low normal 135 -146 (mmol/L) Final Potassium 12/25/2023 10:36:51 4.5 3.5-5.1 (m mol/L) Final Cl 12/25/2023 10:36:51 91 Below low normal 98- 107 (mmol/L) Final CO2 12/25/2023 10:36:51 24 22-32 (mmo l/L) Final Anion gap 12/25/2023 10:36:51 14 7-15 (mmol /L) Final Glucose 12/25/2023 10:36:51 116 70-120 (mg /dL) Final Albumin 12/25/2023 10:36:51 3.5 Below low normal 3.8 -5.0 (g/dL) Final AST (Aspartate aminotransferase) 12/25/2023 10:36:51 12 10-35 (U/L) Fin al Alk Phos 12/25/2023 10:36:51 97 35-130 (U/ L) Final Bilirubin, Total 12/25/2023 10:36:51 0.2 <=1 .2 (mg/dL) Final Calcium 12/25/2023 10:36:51 8.7 8.4-10.2 ( mg/dL) Final Protein 12/25/2023 10:36:51 5.8 Below low normal 6.0 -8.3 (g/dL) Final ALT (Alanine aminotransferase) 12/25/2023 10:36:51 6 Below low normal 10-35 (U/L) Final Performing Location [facility] [place] [facility] [address] [facility] [address]
--- OUTSIDE RECORDS SUMMARY | 2024-02-11 06:52 | External Medical Summary ---
Author Name Unknown Address Unknown Organization K01:[facility]ATORY [facility] [place] - [address] [place] [id number] Laboratory Report Ordering Provider Test Date Status SHAWN MALDONADO 12/25/2023 10:36:51 Final Observation Date Value Abnormality Reference (Units ) Status Folic Acid 12/25/2023 10:36:51 6.5 >4.5 (ng/ mL) Final Performing Location LABORATORY [facility] [place] - [address] [place] [id number]
--- OUTSIDE RECORDS SUMMARY | 2024-02-11 06:52 | External Medical Summary ---
Author Name Unknown Address Unknown Organization K01:[facility]ORY [facility] [place] [address] [place] [address] Laboratory Report Ordering Provider Test Date Status SHAWN MALDONADO 12/25/2023 10:36:51 Final Observation Date Value Abnormality Reference (Units ) Status Vitamin B12 12/25/2023 10:36:51 731 161-5613 (pg/mL) Final Performing Location [facility]ORY [facility] [place] - [address] [place] [address]
--- OUTSIDE RECORDS SUMMARY | 2024-02-11 06:52 | External Medical Summary ---
Author Name Unknown Address Unknown Organization K01:LABORATORY [place] [address] [facility] [address] [facility] [address] Laboratory Report Ordering Provider Test Date Status SHAWN MALDONADO 12/25/2023 10:36:51 Final Observation Date Value Abnormality Reference (Units ) Status Retic, % (auto) 12/25/2023 10:36:51 1.86 0.80-1.90 (%) Final Reticulocytes, Absolute 12/25/2023 10:36:51 52.8 31.3-100.1 (K/uL) Final Reticulocyte fraction, immature 12/25/2023 10:36:51 23.4 Above high normal 2.5-20.6 (%) Final Reticulocyte HGB 12/25/2023 10:36:51 29.5 Below low normal 29.7-37.4 (pg) Final Performing Location [facility] [place] [facility] [address] [facility] [address]
--- OUTSIDE RECORDS SUMMARY | 2024-02-11 06:52 | External Medical Summary ---
Author Name Unknown Address Unknown Organization K01:LAB[facility]ATORY [facility] [place] - [address] [facility] [address] [facility] [address] Laboratory Report Ordering Provider Test Date Status SHAWN MALDONADO 12/25/2023 10:36:51 Final Observation Date Value Abnormality Reference (Units ) Status Ferritin 12/25/2023 10:36:51 249 Above high normal 13 -150 (ng/mL) Final Postmenopausal women have hi gher ferritin levels than pre-menopausal women. The above reference interval is based on pre-menopausal women. Performing Location LABORATORY [facility] [place] - [address] [facility] [address]
--- NOTE | 2024-02-11 07:37 | XRay Report ---
EXAM: XR chest 1V portable CLINICAL HISTORY: RESP FAILURE FOLLOW UP KAA/KAB TECHNIQUE: An X-ray image of the chest is obtained in AP projection. COMPARISON: 02/10/2024 FINDINGS: Pulmonary Parenchyma: Inhomogenous airspace opacification/consolidation is seen in bilateral lung lower zones, which are more obvious in the right lung, with interval progression. Unchanged inhomogeneous opacities in bilateral lung upper zones. Suspected mild bilateral pleural effusion with obliterated both CP angles. There is no pneumothorax. Heart and Mediastinum: Enlarged cardiac shadow. Perihilar bilateral congestive changes are seen. Unchanged. Bony Thorax: Bilateral shoulder replacement orthopedic hardware is noted. Degenerative changes in the thoracic spine. Soft Tissues: Soft tissues overlying the chest wall are unremarkable. Right central venous line is seen with distal tip noted in superior vena cava. IMPRESSION: 1. Interval progression seen in inhomogenous airspace opacification/consolidation in bilateral lung lower zones, more obvious in the right lung. 2. Unchanged inhomogeneous opacities in bilateral lung upper zones. 3. Suspected mild bilateral pleural effusion with obliterated both CP angles. 4. Right central venous line is seen with distal tip noted in superior vena cava. Electronically signed by Ragini Solis 02-11-2024 07:36 AM
--- NOTE | 2024-02-11 07:47 | Critical Care Progress Note ---
Date of Service February 11, 2024 Assessment & Plan (1) Septic shock: (2) Hyponatremia: (3) Peripheral vascular disease: (4) Diabetes mellitus, type 2: (5) HTN (hypertension): (6) COPD (chronic obstructive pulmonary disease): (7) Lung cancer: (8) Anxiety: (9) Respiratory failure, acute and chronic: (10) [place] (acute kidney injury): Plan Reason Critically Ill: 73-year-old female with past medical history significant for COPD, lung cancer (undergoing treatment with chemotherapy), anxiety and depression, peripheral vascular disease, DM type II, HLD, HTN presents to the ICU with septic shock likely from pulmonary source, currently requiring vasopressor support with Levophed drip. Neuro - [facility] ICU: Negative Cardiac - Shock Likely septic given the multilobar pneumonia Random cortisol will be on the lower side given patient is on chronic prednisone - Patient with elevated troponin, downtrending. - Titrate Levophed to maintain MAP greater than 65 Patient started on hydrocortisone 02/11/2024 --Elevated troponin Likely type II [place] EKG changes No chest pain and no ST elevation on EKG. Suspect demand ischemia Patient takes prednisone on a daily basis, will change it to Solu-Medrol while in the hospital Respiratory - Acute on chronic hypoxic and hypercapnic respiratory failure Multifactorial Does have COPD and emphysema - Scheduled nebs, DuoNeb as needed -- Multilobar pneumonia Continue with antibiotics --History of squamous cell carcinoma of the lung On osimertinib CTA chest 02/10/2024 personally reviewed: Patchy opacities appreciated in the left upper lobe with some cavitary lesion Dense consolidative process in the left lower lobe with loculated left-sided pleural effusion Cavitary lesion in the right lower lobe perifissural, right upper lobe linear nodular opacity 3.1 cm x 5 cm Centrilobular and paraseptal emphysema appreciated bilaterally Moderate hiatal hernia Significant mediastinal lymphadenopathy GI - Probable GI bleed Patient with positive Hemoccult, no significant melena per report - GI consulted. Will follow up recommendations - Keep n.p.o. for now RENAL/LYTES - Hyponatremiawith history of SIADH, etiology is most likely Tagrisso Serum osmolality 261, urine osmolality, 375, urine sodium 12 Patient with hypoosmolar hyponatremia with sodium of 122 on admission. - Goal sodium correction 6-8 mill equivalents per 24 hours -Nephrology consulted [place] On CKD Likely prerenal in the setting of hypotension. Baseline creatinine around 1.5 - Avoid nephrotoxins renally adjust medications - Maintain MAP greater than 65 to ensure renal perfusion - Strict I's and O's ENDO - DM type II Continue with ICU hyperglycemic protocol HEME - Acute on chronic anemia S/p 1 unit PRBC on 02/10/2024. Has received multiple transfusions in the past as well Follow-up iron studies Monitor H&H ID - Sepsislikely pulmonary source with left lower lobe consolidation noted on CTA chest, and immunocompromise patient receiving chemotherapy for lung cancer. - BioFire negative, nasal MRSA negative - Urinalysis unremarkable -Follow blood and sputum culture --Prophylaxis VTE: IPC GI: Pantoprazole Lines: Right-sided Port-A-Cath, peripheral Diet: N.p.o. Plan: In/out: +3.3 L, urine output 290 ABG 7.25/39/63 on BiPAP 12/5 Patient is almost positive for liters and she is not making much urine. Will DC IV fluids Chest x-ray from today shows worsening pulmonary edema I will add doxycycline to the patient's regimen If there is any worsening in patient's mental status or agitation then plan will be to intubate I have personally spent 53 minutes of critical care time in the direct management of this patient. This is a life/limb threatening event. This includes time spent evaluating patient, direct bedside care, chart review, placing orders, interpretation of diagnostic studies, discussion with consultants, patient, and family members, as well as other required patient management activities. This time is exclusive of all separately billable procedures, and teaching time and separate from and in addition to any other critical care service time. Please note the above document was generated using voice recognition software. It may contain grammatical, syntax or spelling errors. Admission and Anticipated Discharge Date Admission Date: February 10, 2024 Subjective Patient seen and examined at bedside. No acute distress Overnight patient need to be put on Precedex that she was fighting the BiPAP She was on 1 of Precedex and Levophed 0.07. She was RASS -2 Respiratory rate was in the high teens to low 20s Has been afebrile. She is more on hypothermic curve Review of Systems 2 Review of Systems: All systems reviewed & are unremarkable except as noted in Subjective Physical Exam 2 Physical Exam: Constitutional: No acute distress HEENT: EOMI, PERRLA Respiratory system: Decreased air entry bilaterally, no wheeze, rhonchi, positive crackles bilaterally CVS: S1-S2 positive, no murmurs or gallops Abdomen: Soft, nontender, nondistended, positive bowel sounds x4 Extremities: +2 pulses bilaterally radialis/ dorsalis pedis, no cyanosis, positive pitting edema bilateral lower extremity Neuro: RASS -2, moving all extremities spontaneously Psych: Unable to assess G/U: Positive [place] Skin: no rashes, warm and dry Lymphatic: no cervical or axillary lymphadenopathy Results & Data Results & Data Vital Signs (Past 12 Hours) Vital Signs Temp Pulse Resp BP Pulse Ox O2 Del Method O2 Flow Rate 02/11/24 07:30 102 H 02/11/24 06:18 36.6 C 100 H 17 96 02/11/24 06:16 119/76 02/11/24 06:03 37.0 C 100 H 14 97 02/11/24 06:01 97/66 L 02/11/24 06:01 97/66 L 02/11/24 05:54 37.0 C 99 H 17 97 02/11/24 05:35 110/62 02/11/24 05:35 110/62 02/11/24 05:35 110/62 02/11/24 05:18 36.9 C 101 H 15 96 02/11/24 05:15 86/50 L 02/11/24 05:15 86/50 L 02/11/24 05:15 86/50 L 02/11/24 05:15 86/50 L 02/11/24 05:12 37.1 C 101 H 16 97 02/11/24 04:48 37.0 C 102 H 22 95 02/11/24 04:47 112/87 02/11/24 04:47 112/87 02/11/24 04:45 37.0 C 102 H 22 96 02/11/24 04:31 129/65 02/11/24 04:31 129/65 02/11/24 04:21 36.9 C 96 H 22 94 02/11/24 04:18 79/53 L 02/11/24 04:18 79/53 L 02/11/24 04:18 36.9 C 95 H 24 91 02/11/24 04:16 132/105 H 11/19/24 04:16 132/105 H 02/11/24 04:15 36.9 C 94 H 37 H 93 02/11/24 04:06 36.4 C L 93 H 18 126/56 L 93 02/11/24 04:03 36.9 C 94 H 17 97 02/11/24 03:46 126/56 L 02/11/24 03:45 36.8 C 98 H 28 H 93 02/11/24 03:36 36.7 C 98 H 19 95 02/11/24 03:31 105/69 02/11/24 03:31 105/69 02/11/24 03:17 104/60 02/11/24 02:51 36.3 C L 97 H 18 111/65 94 02/11/24 02:45 87/66 L 02/11/24 02:45 87/66 L 02/11/24 02:39 36.6 C 98 H 15 94 02/11/24 02:33 36.6 C 98 H 27 H 95 02/11/24 02:33 96 H 33 H 100 02/11/24 02:24 98 H 17 97 02/11/24 02:21 36.4 C L 97 H 16 87/66 L 93 02/11/24 02:16 98/65 L 02/11/24 02:16 98/65 L 02/11/24 02:12 96 H 24 98 02/11/24 02:06 36.4 C L 97 H 16 98/65 L 98 02/11/24 02:03 96 H 25 H 97 02/11/24 02:01 104/52 L 02/11/24 02:01 104/52 L 02/11/24 01:50 36.4 C L 95 H 16 107/71 99 02/11/24 01:46 107/71 02/11/24 01:45 36.4 C L 95 H 17 92 02/11/24 01:39 36.4 C L 96 H 28 H 96 02/11/24 01:27 96 H 34 H 93 02/11/24 01:15 106/75 02/11/24 01:12 36.3 C L 94 H 15 90 02/11/24 01:01 105/54 L 02/11/24 01:00 36.3 C L 94 H 26 H 91 02/11/24 00:54 110/46 L 02/11/24 00:54 110/46 L 02/11/24 00:48 94 H 26 H 92 02/11/24 00:32 97/58 L 02/11/24 00:32 97/58 L 02/11/24 00:32 97/58 L 02/11/24 00:30 35.5 C L 93 H 27 H 94 02/11/24 00:15 104/59 L 02/11/24 00:09 36.1 C L 94 H 26 H 90 02/11/24 00:06 36.4 C L 93 H 23 93 02/11/24 00:00 81/65 L 02/10/24 23:57 35.0 C L 92 H 21 99 02/10/24 23:33 36.0 C L 96 H 16 90 02/10/24 23:31 109/69 02/10/24 23:31 109/69 02/10/24 23:30 Nasal Cannula 6 02/10/24 23:25 123/48 L 02/10/24 23:25 123/48 L 02/10/24 23:24 36.5 C 112 H 20 83 L 02/10/24 23:11 36.1 C L 96 H 20 135/67 90 6 02/10/24 23:09 36.5 C 96 H 26 H 90 02/10/24 22:51 36.4 C L 98 H 25 H 93 02/10/24 22:43 123/80 02/10/24 22:15 94/60 L 02/10/24 22:15 94/60 L 02/10/24 22:15 99 H 28 H 92 02/10/24 22:06 98 H 27 H 91 02/10/24 22:06 112/58 L 02/10/24 22:00 98/80 L 02/10/24 21:57 96 H 31 H 85 L 02/10/24 21:56 97/54 L 94 Nasal Cannula 4 02/10/24 21:54 64/50 L 02/10/24 21:52 36.1 C L 96 H 20 98/80 L 94 4 02/10/24 21:48 95 H 24 02/10/24 21:30 106/51 L 02/10/24 21:30 96 H 28 H 100 BiPAP 02/10/24 21:25 83/57 L 02/10/24 21:19 96 H 02/10/24 21:18 95 H 22 100 BiPAP 02/10/24 21:16 108/56 L 02/10/24 21:12 96 H 20 94 BiPAP 02/10/24 21:10 112/56 L 02/10/24 21:10 112/56 L 02/10/24 21:09 93 H 25 H 02/10/24 21:07 101/70 02/10/24 21:03 93 H 25 H 97 BiPAP 02/10/24 21:00 BiPAP 02/10/24 21:00 115/77 02/10/24 21:00 91 H 20 99 BiPAP 02/10/24 20:56 104/54 L 02/10/24 20:56 104/54 L 02/10/24 20:52 35.8 C L 91 H 18 104/52 L 100 02/10/24 20:51 86 24 98 BiPAP 02/10/24 20:50 92/51 L 02/10/24 20:49 85/36 L 02/10/24 20:45 67/43 L 02/10/24 20:45 83 21 92 02/10/24 20:39 82 20 92 02/10/24 20:39 88/43 L 02/10/24 20:37 72/47 L 02/10/24 20:31 100 02/10/24 20:27 84/43 L 02/10/24 20:27 75 18 97 BiPAP 02/10/24 20:22 121/89 02/10/24 20:22 35.6 C L 75 16 84/43 L 100 02/10/24 20:21 77 20 99 BiPAP 02/10/24 20:15 BiPAP 02/10/24 20:15 76/53 L 02/10/24 20:12 78 21 02/10/24 20:07 36.8 C 79 22 69/44 L 96 02/10/24 20:06 78 17 100 BiPAP 02/10/24 19:50 35.8 C L 81 27 H 90/46 L 92 100 02/10/24 19:45 BiPAP 02/10/24 19:45 76 26 H FiO2 02/11/24 07:30 02/11/24 06:18 11/19/24 06:16 02/11/24 06:03 02/11/24 06:01 02/11/24 06:01 02/11/24 05:54 02/11/24 05:35 02/11/24 05:35 02/11/24 05:35 02/11/24 05:18 02/11/24 05:15 02/11/24 05:15 02/11/24 05:15 02/11/24 05:15 02/11/24 05:12 02/11/24 04:48 02/11/24 04:47 02/11/24 04:47 02/11/24 04:45 02/11/24 04:31 02/11/24 04:31 02/11/24 04:21 02/11/24 04:18 02/11/24 04:18 02/11/24 04:18 02/11/24 04:16 02/11/24 04:16 02/11/24 04:15 02/11/24 04:06 02/11/24 04:03 02/11/24 03:46 02/11/24 03:45 02/11/24 03:36 02/11/24 03:31 02/11/24 03:31 02/11/24 03:17 02/11/24 02:51 02/11/24 02:45 02/11/24 02:45 02/11/24 02:39 02/11/24 02:33 02/11/24 02:33 40 02/11/24 02:24 02/11/24 02:21 02/11/24 02:16 02/11/24 02:16 02/11/24 02:12 02/11/24 02:06 02/11/24 02:03 02/11/24 02:01 02/11/24 02:01 02/11/24 01:50 02/11/24 01:46 02/11/24 01:45 02/11/24 01:39 02/11/24 01:27 02/11/24 01:15 02/11/24 01:12 02/11/24 01:01 02/11/24 01:00 02/11/24 00:54 02/11/24 00:54 02/11/24 00:48 02/11/24 00:32 02/11/24 00:32 02/11/24 00:32 02/11/24 00:30 02/11/24 00:15 02/11/24 00:09 02/11/24 00:06 02/11/24 00:00 02/10/24 23:57 02/10/24 23:33 02/10/24 23:31 02/10/24 23:31 02/10/24 23:30 02/10/24 23:25 02/10/24 23:25 02/10/24 23:24 02/10/24 23:11 02/10/24 23:09 02/10/24 22:51 02/10/24 22:43 02/10/24 22:15 02/10/24 22:15 02/10/24 22:15 02/10/24 22:06 02/10/24 22:06 02/10/24 22:00 02/10/24 21:57 02/10/24 21:56 02/10/24 21:54 02/10/24 21:52 02/10/24 21:48 02/10/24 21:30 02/10/24 21:30 40 02/10/24 21:25 02/10/24 21:19 02/10/24 21:18 40 02/10/24 21:16 02/10/24 21:12 40 02/10/24 21:10 02/10/24 21:10 02/10/24 21:09 02/10/24 21:07 02/10/24 21:03 40 02/10/24 21:00 02/10/24 21:00 02/10/24 21:00 40 02/10/24 20:56 02/10/24 20:56 02/10/24 20:52 02/10/24 20:51 40 02/10/24 20:50 02/10/24 20:49 02/10/24 20:45 02/10/24 20:45 02/10/24 20:39 02/10/24 20:39 02/10/24 20:37 02/10/24 20:31 40 02/10/24 20:27 02/10/24 20:27 40 02/10/24 20:22 02/10/24 20:22 02/10/24 20:21 40 02/10/24 20:15 02/10/24 20:15 02/10/24 20:12 02/10/24 20:07 02/10/24 20:06 40 02/10/24 19:50 02/10/24 19:45 02/10/24 19:45 100 Laboratory Results 02/11/24 05:21 02/11/24 05:21 Coding Level of Care Code 38584 CRITICAL CARE 1ST 30-74M Diagnoses Septic shock A41.9; R65.21 Hyponatremia E87.1 Peripheral vascular disease I73.9 Diabetes mellitus, type 2 E11.9 HTN (hypertension) I10 COPD (chronic obstructive pulmonary disease) J44.9 Lung cancer C34.90 Anxiety F41.9 Respiratory failure, acute and chronic J96.21 Respiratory failure complication: hypoxia [place] (acute kidney injury) N17.9 (9) Respiratory failure, acute and chronic Respiratory failure complication: hypoxia Qualified Code(s): J96.21 - Acute and chronic respiratory failure with hypoxia
[2024-02-11] MEDS: HYDROCORTISONE SOD 100 MG in SYRINGE 0 ML IV STA (08:27)
[2024-02-11] MEDS: DOXYCYCLINE HYCLATE 100 MG in DEXTROSE 5% MINI-B 100 ML IV SCH (08:27)
[2024-02-11] MEDS: PANTOprazole 40 MG/10 ML SYR IV SCH (08:28)
--- NOTE | 2024-02-11 08:31 | Electrocardiogram Report ---
Test Reason : Blood Pressure : */* mmHG Vent. Rate : 79 BPM Atrial Rate : 79 BPM P-R Int : 160 ms QRS Dur : 88 ms QT Int : 432 ms P-R-T Axes : 82 76 116 degrees QTcB Int : 496 ms Normal sinus rhythm Septal infarct , age undetermined Nonspecific ST abnormality Prolonged QT Abnormal ECG No previous ECGs available Confirmed by Da Nation ([id number]) on 02/11/2024 8:31:03 AM Referred By: Confirmed By: Da Nation
[2024-02-11] MEDS: SODIUM BICARB 8.4% INJ 50 MEQ/50 ML SYR IV STA ×2 (08:55→20:44)
[2024-02-11] MEDS ORDERED: predniSONE 20 MG TAB PO SCH (09:00)
--- NOTE | 2024-02-11 09:04 | Nephrology Consultation ---
Date of Consultation February 11, 2024 Assessment & Plan (1) Acute kidney injury (nontraumatic): oliguric [place] on CKD 4 (basleine creatinine 1.6-2.0 in 2023 though more 1.6-1.7 w/ stable weight December). presented with creatinine 2.8 > 2.6 this AM. s/p IV contrast for CTA chest 02/09. 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 she has NAGMA now and has since arrival; doubt role for Farxiga related ketoacidosis; presume ischemic ATN given hypotension, anemia and IV contrast. -given that we are less than 36 hrs out from IV con exposure and hypotension, would avoid lasix trial for next 24 hrs at least; continue low dose NS (will lower rate to 50 mL hourly) -continue IVF and pressor to keep map > 65 -daily bmp at least -high likelihood to need dialysis next 24-48 hrs, none needed currently Care coordinated w/ Dr Mccoy in person and via TT regarding lasix trial, role for farxiga if any, IVF rate, likely need for dialysis, overall respiratory status and plan > we are in agreement. (2) Hyponatremia: improving but still severe hyponatremia. presented w/ sNa 122 and dropped to 118 by 0100 this AM. 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 -cont IVF but lower rate as above -goal sNa is no more than 126 by MN -monitor at least q8 hr (3) CKD (chronic kidney disease) stage 4, GFR 15-29 ml/min: CKD 4 though past month w/ some improvement in creatinine and wt maintained (4) Hypomagnesemia: mild; on platin based therapy >> monito rdaily (5) Respiratory failure, acute and chronic: per pulmonary; failed bipap ;multifactorial from copd, lung ca x 2 types > f/u bronch results -4.5L + and oliguric > about 15 mL/hr UOP worsening/slowing >> ok w/ trial of lasix (though doubt she'll respond much); lowered NS to 50 mL /hr (6) Lung cancer: on VEGF/TK inhibitor AND taxol / carboplatin/ ketruda and on intermittent decadron (last tx 01/22) (7) Pneumonia: severe; multilobar; cavitary lesions on imaging RLL, JAKE zosyn/doxy History of Present Illness Reason for Consultation: [place], hyponatremia Requesting Physician: critical care team Attending Physician: Lila Coates MD History of Present Illness 73 y/o F whom I'm asked to see for [place] and hyponatremia was admitted last evening directly to ICU for septic shock attributed to severe pneumonia in an immunocompromised patient. 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 in addition to daily tagrisso and chemotherapy (last infusion 01/22) above, also on farxiga, bupropion, amlodipine, losartan, venlafaxine, propranolol, daily prednisone as OP. She fell 3 days prior to admissoin from being dizzy w/ decreased UOP and progressive weakness/fatigue (sleeping all day), poor po past few weeks. some dyspnea and thick/productive cough prior to admission some abd discomfort on admission but no c/o melena or hematochezia or diarrhea/constipation. This is all per chart review as pt is intubated and I cannot obtain ROS. on arrival to ER sbp 70s, 02 sats as low as 80s, presenting hgb 6.9 dropped as low as 6.1 (POC) an dup to 8.5 this am, presenting sodium 122 at 1700 and dropped to 118 by 0100 this am, back to 122 by 0530. Creatinine 2.8 on presentation, to 2.6 this am. Troponin 4722 > 2992. CK 223>342. She received Vancomycin 1.5 gm, Zosyn, fluid boluses, 2 units PRBC in ER. BiPAP and Levophed later initiated. Currently on doxy, zosyn, precedex, levophed, Ns at 125 mL/hr, stress dosed steroids. 290 mL UOP overnight to 0700, 35 mL since then > about 15 mL hourly on daylight today. intubated shortly before I saw her today; bronch planned. TTE pending. Allergies Allergy/AdvReac Type Severity Reaction Status Date / Time NSAIDS (Non-Steroidal AdvReac Intermediate Hives Verified 12/16/23 07:27 Anti-Inflamma Home Medications Medication Instructions Recorded Confirmed Type amlodipine 5 mg tablet 2.5 mg PO QAM 12/04/23 02/10/24 History budesonide 160 mcg-glycopyr 9 2 inh inhalation QPM 12/04/23 02/10/24 History mcg-formot 4.8 mcg/actuation HFA inhaler (Breztri Aerosphere) bupropion HCl 150 mg 24 hr tablet, 150 mg PO QAM 12/04/23 02/10/24 History extended release dapagliflozin propanediol 5 mg 5 mg PO QAM 12/04/23 02/10/24 History tablet (Farxiga) dexamethasone 4 mg tablet See Rx Instructions .Route .COMPLEX 12/04/23 02/10/24 History lansoprazole 15 mg capsule,delayed 15 mg PO QAM 12/04/23 02/10/24 History release losartan 100 mg tablet 100 mg PO QAM 12/04/23 02/10/24 History osimertinib 40 mg tablet (Tagrisso) 40 mg PO QAM 12/04/23 02/10/24 History rosuvastatin 10 mg tablet 10 mg PO QAM 12/04/23 02/10/24 History venlafaxine 150 mg 150 mg PO QAM 12/04/23 02/10/24 History capsule,extended release 24 hr (Effexor XR) acetaminophen 500 mg tablet 500 mg PO Q6H PRN Pain 02/10/24 02/10/24 History albuterol sulfate 2.5 mg/3 mL 2.5 mg inhalation Q4H PRN Wheezing 02/10/24 02/10/24 History (0.083 %) solution for nebulization albuterol sulfate 90 mcg/actuation 2 puff inhalation 6XD PRN Wheezing 02/10/24 02/10/24 History aerosol inhaler aspirin 81 mg tablet,delayed 81 mg PO DAILY 02/10/24 02/10/24 History release lidocaine-prilocaine 2.5 %-2.5 % 1 applic topical UD 02/10/24 02/10/24 History topical cream melatonin 5 mg tablet 5 mg PO HS 02/10/24 02/10/24 History omeprazole 20 mg capsule,delayed 20 mg PO QAM 02/10/24 02/10/24 History release ondansetron HCl 8 mg tablet 8 mg PO Q8H PRN Nausea And Vomiting 02/10/24 02/10/24 History prochlorperazine maleate 10 mg 10 mg PO Q6H PRN Nausea 02/10/24 02/10/24 History tablet propranolol 60 mg capsule,24 60 mg PO QAM 02/10/24 02/10/24 History hr,extended release trazodone 100 mg tablet 100 mg PO QAM 02/10/24 02/10/24 History Patient History Medical History Hyponatremia AAA (abdominal aortic aneurysm) per 09/10/23 imagin.7mm CKD (chronic kidney disease) stage 4, GFR 15-29 ml/min Carotid artery disease s/p R CEA Peripheral vascular disease Diverticular disease No hospitalizations - unsure when dx Acid reflux Diabetes mellitus, type 2 Anxiety Migraine HTN (hypertension) Irregular heart beat Follows Dr Hannah Springer; 'frequent PVCs' per chart review COPD (chronic obstructive pulmonary disease) 55 pack year smoking hx Lung cancer Per Oncology note, "Right lung mass, FNA c/w non small cell lung cancer favor adenocarcinoma. 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" Surgical History H/O vascular surgery L leg stent x 2 Hx of hysterectomy History of lung biopsy History of right shoulder replacement History of carotid endarterectomy R CEA History of bilateral hip replacements History of total left knee replacement Hx of colonoscopy Hx of cholecystectomy Hx of cataract surgery Bilateral Social History Smoking Status: Never smoker Tobacco Type: Cigarettes Cigarettes Per Day: 1/2 pack; Second Hand Exposure: No; Do You Dip or Chew Tobacco: No; Hx Alcohol Use: No Hx Substance Use: No Preferred Language: Maori Communication Ability: Impaired Claim Auditor Required: No Beliefs That Will Affect Care: None Current Living Situation: Spouse Feels Safe at Home: Yes Assistive Devices: Bedside Commode, Lift Chair, Walker and Wheelchair Review of Systems 2 Review of Systems: Unobtainable due to endotracheal tube Physical Exam 2 Constitutional: well developed, well nourished and + mechanically ventilated; no acute distress Respiratory: normal respiratory effort (on vent) Auscultation: + diminished lung sounds Cardiovascular: Rate/Rhythm: regular rate and regular rhythm Extremities: n o edema Gastrointestinal (Abdomen): Inspection/Auscultation: normal bowel sounds P ercussion/Palpation: abdomen soft Skin: no rashes, warm and dry Neurologic: sedated, intubated Results & Data Vital Signs (Past 12 Hours) Vital Signs Temp Pulse Resp BP Pulse Ox O2 Del Method O2 Flow Rate 02/11/24 07:30 102 H 02/11/24 07:00 93 H 130/72 92 BiPAP 02/11/24 06:18 36.6 C 100 H 17 96 02/11/24 06:16 119/76 02/11/24 06:03 37.0 C 100 H 14 97 02/11/24 06:01 97/66 L 02/11/24 06:01 97/66 L 02/11/24 05:54 37.0 C 99 H 17 97 02/11/24 05:35 110/62 02/11/24 05:35 110/62 02/11/24 05:35 110/62 02/11/24 05:18 36.9 C 101 H 15 96 02/11/24 05:15 86/50 L 02/11/24 05:15 86/50 L 02/11/24 05:15 86/50 L 02/11/24 05:15 86/50 L 02/11/24 05:12 37.1 C 101 H 16 97 02/11/24 04:48 37.0 C 102 H 22 95 02/11/24 04:47 112/87 02/11/24 04:47 112/87 02/11/24 04:45 37.0 C 102 H 22 96 02/11/24 04:31 129/65 02/11/24 04:31 129/65 11/19/24 04:21 36.9 C 96 H 22 94 02/11/24 04:18 79/53 L 02/11/24 04:18 79/53 L 02/11/24 04:18 36.9 C 95 H 24 91 02/11/24 04:16 132/105 H 02/11/24 04:16 132/105 H 02/11/24 04:15 36.9 C 94 H 37 H 93 02/11/24 04:06 36.4 C L 93 H 18 126/56 L 93 02/11/24 04:03 36.9 C 94 H 17 97 02/11/24 03:46 126/56 L 02/11/24 03:45 36.8 C 98 H 28 H 93 02/11/24 03:36 36.7 C 98 H 19 95 02/11/24 03:31 105/69 02/11/24 03:31 105/69 02/11/24 03:17 104/60 02/11/24 02:51 36.3 C L 97 H 18 111/65 94 02/11/24 02:45 87/66 L 02/11/24 02:45 87/66 L 02/11/24 02:39 36.6 C 98 H 15 94 02/11/24 02:33 36.6 C 98 H 27 H 95 02/11/24 02:33 96 H 33 H 100 02/11/24 02:24 98 H 17 97 02/11/24 02:21 36.4 C L 97 H 16 87/66 L 93 02/11/24 02:16 98/65 L 02/11/24 02:16 98/65 L 02/11/24 02:12 96 H 24 98 02/11/24 02:06 36.4 C L 97 H 16 98/65 L 98 02/11/24 02:03 96 H 25 H 97 02/11/24 02:01 104/52 L 02/11/24 02:01 104/52 L 02/11/24 01:50 36.4 C L 95 H 16 107/71 99 02/11/24 01:46 107/71 02/11/24 01:45 36.4 C L 95 H 17 92 02/11/24 01:39 36.4 C L 96 H 28 H 96 02/11/24 01:27 96 H 34 H 93 02/11/24 01:15 106/75 02/11/24 01:12 36.3 C L 94 H 15 90 02/11/24 01:01 105/54 L 02/11/24 01:00 36.3 C L 94 H 26 H 91 02/11/24 00:54 110/46 L 02/11/24 00:54 110/46 L 02/11/24 00:48 94 H 26 H 92 02/11/24 00:32 97/58 L 02/11/24 00:32 97/58 L 02/11/24 00:32 97/58 L 02/11/24 00:30 35.5 C L 93 H 27 H 94 02/11/24 00:15 104/59 L 02/11/24 00:09 36.1 C L 94 H 26 H 90 02/11/24 00:06 36.4 C L 93 H 23 93 02/11/24 00:00 81/65 L 02/10/24 23:57 35.0 C L 92 H 21 99 02/10/24 23:33 36.0 C L 96 H 16 90 02/10/24 23:31 109/69 02/10/24 23:31 109/69 02/10/24 23:30 Nasal Cannula 6 02/10/24 23:25 123/48 L 02/10/24 23:25 123/48 L 02/10/24 23:24 36.5 C 112 H 20 83 L 02/10/24 23:11 36.1 C L 96 H 20 135/67 90 6 02/10/24 23:09 36.5 C 96 H 26 H 90 02/10/24 22:51 36.4 C L 98 H 25 H 93 02/10/24 22:43 123/80 02/10/24 22:15 94/60 L 02/10/24 22:15 94/60 L 02/10/24 22:15 99 H 28 H 92 02/10/24 22:06 98 H 27 H 91 02/10/24 22:06 112/58 L 02/10/24 22:00 98/80 L 02/10/24 21:57 96 H 31 H 85 L 02/10/24 21:56 97/54 L 94 Nasal Cannula 4 02/10/24 21:54 64/50 L 02/10/24 21:52 36.1 C L 96 H 20 98/80 L 94 4 02/10/24 21:48 95 H 24 02/10/24 21:30 106/51 L 02/10/24 21:30 96 H 28 H 100 BiPAP 02/10/24 21:25 83/57 L 02/10/24 21:19 96 H 02/10/24 21:18 95 H 22 100 BiPAP 02/10/24 21:16 108/56 L 02/10/24 21:12 96 H 20 94 BiPAP 02/10/24 21:10 112/56 L 02/10/24 21:10 112/56 L 02/10/24 21:09 93 H 25 H 02/10/24 21:07 101/70 02/10/24 21:03 93 H 25 H 97 BiPAP FiO2 02/11/24 07:30 02/11/24 07:00 40 02/11/24 06:18 02/11/24 06:16 02/11/24 06:03 02/11/24 06:01 02/11/24 06:01 02/11/24 05:54 02/11/24 05:35 02/11/24 05:35 02/11/24 05:35 02/11/24 05:18 02/11/24 05:15 02/11/24 05:15 02/11/24 05:15 02/11/24 05:15 02/11/24 05:12 02/11/24 04:48 02/11/24 04:47 02/11/24 04:47 02/11/24 04:45 02/11/24 04:31 02/11/24 04:31 02/11/24 04:21 02/11/24 04:18 02/11/24 04:18 02/11/24 04:18 02/11/24 04:16 02/11/24 04:16 02/11/24 04:15 02/11/24 04:06 02/11/24 04:03 02/11/24 03:46 02/11/24 03:45 02/11/24 03:36 02/11/24 03:31 02/11/24 03:31 02/11/24 03:17 02/11/24 02:51 02/11/24 02:45 02/11/24 02:45 02/11/24 02:39 02/11/24 02:33 02/11/24 02:33 40 02/11/24 02:24 02/11/24 02:21 02/11/24 02:16 02/11/24 02:16 02/11/24 02:12 02/11/24 02:06 02/11/24 02:03 02/11/24 02:01 02/11/24 02:01 02/11/24 01:50 02/11/24 01:46 02/11/24 01:45 02/11/24 01:39 02/11/24 01:27 02/11/24 01:15 02/11/24 01:12 02/11/24 01:01 02/11/24 01:00 02/11/24 00:54 02/11/24 00:54 02/11/24 00:48 02/11/24 00:32 02/11/24 00:32 02/11/24 00:32 02/11/24 00:30 02/11/24 00:15 02/11/24 00:09 02/11/24 00:06 02/11/24 00:00 02/10/24 23:57 02/10/24 23:33 02/10/24 23:31 02/10/24 23:31 02/10/24 23:30 02/10/24 23:25 02/10/24 23:25 02/10/24 23:24 02/10/24 23:11 02/10/24 23:09 02/10/24 22:51 02/10/24 22:43 02/10/24 22:15 02/10/24 22:15 02/10/24 22:15 02/10/24 22:06 02/10/24 22:06 02/10/24 22:00 02/10/24 21:57 02/10/24 21:56 02/10/24 21:54 02/10/24 21:52 02/10/24 21:48 02/10/24 21:30 02/10/24 21:30 40 02/10/24 21:25 02/10/24 21:19 02/10/24 21:18 40 02/10/24 21:16 02/10/24 21:12 40 02/10/24 21:10 02/10/24 21:10 02/10/24 21:09 02/10/24 21:07 02/10/24 21:03 40 Laboratory Results 02/11/24 05:21 02/11/24 05:21 UA 1021, trace ketones, trace protein and LE, 1+ bili U osms 375; Bibiana 12 serum osms 261 Diagnostic Findings CXR this AM (images personally reviewed; agree w/ report) 1. Interval progression seen in inhomogenous airspace opacification/consolidation in bilateral lung lower zones, more obvious in the right lung. 2. Unchanged inhomogeneous opacities in bilateral lung upper zones. 3. Suspected mild bilateral pleural effusion with obliterated both CP angles. 4. Right central venous line is seen with distal tip noted in superior vena cava. CT a/p (images personally reviewed; agree w/ report) < small L kidney noted 1. No acute fracture. Heterogeneous appearance of the marrow within the pelvis. Cannot exclude underlying metastatic disease. Consider MRI. 2. Advanced atherosclerotic calcifications. AAA measuring 4.1 cm. 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 CTA chest (images personally reviewed; agree w/ report) 1. No pulmonary embolism. 2. Extensive consolidation in the left lower lobe. 3. More nodular appearing lesions in the left upper lobe some of which demonstrate early cavitation. 4. Cavitating lesion in the right lower lobe with wall thickening measuring up to 4.3 cm. 5. Heterogeneous opacity in the right upper lobe with what appears to be a peripheral rim measuring 4.3 cm (series 10 image 88). 6. Linear nodularity in the posterior right upper lobe measuring 3.7 x 1. 5 cm. 7. Moderate hiatal hernia. 8. Heart size mildly prominent. Severe CAD. head ct 1. No intracranial hemorrhage or traumatic injury identified. 2. 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 Correlate clinically. Consider MRI if there is concern for acute ischemia. (5) Respiratory failure, acute and chronic Respiratory failure complication: hypoxia Qualified Code(s): J96.21 - Acute and chronic respiratory failure with hypoxia (6) Lung cancer Laterality: unspecified laterality Lung location: unspecified part of lung Qualified Code(s): C34.90 - Malignant neoplasm of unspecified part of unspecified bronchus or lung (7) Pneumonia Laterality: left Lung location: lower lobe of lung Pneumonia type: due to unspecified organism Qualified Code(s): J18.9 - Pneumonia, unspecified organism
[2024-02-11] MEDS ORDERED: ETOMIDATE 2 MG/ML 20 ML VIAL IV ONE (09:52)
[2024-02-11] MEDS ORDERED: LIDOCAINE 2% 20 MG/ML 5 ML SYR IV ONE (09:52)
[2024-02-11] MEDS ORDERED: ROCURONIUM BROMIDE 10 MG/ML 5 ML VIAL IV ONE (09:52)
--- OUTSIDE RECORDS SUMMARY | 2024-02-11 10:44 | External Medical Summary | Summary of Care ---
Author Name Unknown Organization [facility] Address [address] [place] [address] Phone [phone] Care Team Providers Care Clinical Informatics Educator Name Role Phone Vidal Barba MD Primary Care Provider [phone] Encounter Details Date Type Department Care Team (Late st Contact Info) Description 02/10/2024 Orders Only Hematology/Oncology [facility] [address] [place] [address] [facility] [place] [phone] Lisa Lopez MD [address] [place] [address] Allergies Active Allergy Reactions Criticality Noted Date [...] as of this encounter (statuses as of 02/10/2024) Medications ONETOUCH ULTRA BLUE STRPIndications:DM type 2, [...] s:COPD, group B, by GOLD 2017 classification ([facility]) Inhale 2 Puffs by mouth 4 times a day as needed for Wheezing. 18 g 4 08/17/19 23 Active Additional Information Patient not taking.Reported on 10/30/2023 Budeson-Glycopyrro l-Formoterol 160-9-4.8 MCG/ACT Inhalation AerosolIndications :COPD, group B, by GOLD 2017 classification ([facility]) Inhale 2 Puffs by mouth daily. [...] as of this encounter (statuses as of 02/10/2024) Active Problems Problem Noted Date Diagnosed Date [...] of right lung 01/29/2022 Unspecified atherosclerosis of [place] arteries of extremities, bilateral legs 12/27/2021 History [...] as of this encounter (statuses as of 02/10/2024) Resolved Problems Problem Noted Date Diagnosed Date [...] as of this encounter (statuses as of 02/10/2024) Immunizations Name Administration Dates Next Due COVID-19 [...] Description 02/12/2024 9:40 AM EST Laboratory Laboratory [facility] [place] [address] [place] [phone] [place] [address] [facility] [place] [address] 02/12/2024 10:15 AM EST Office Visit Hematology/Oncology [facility] [place] [address] [facility] [place] [phone] Lisa Lopez MD [address] [facility] [place] [address] 02/12/2024 11:00 AM EST [facility] [address] [place] [phone] [place], Chair [address] Hem Onc [address] [place] [address] 03/04/2024 9:45 AM EST Pharmacy Pharmacy Hematology Oncology [place] [address] [place] [address] [facility] [place], [facility] Hem/Onc [address] [place] [address] 03/23/2024 5:00 PM EST Office Visit Family Practice [address] [place] [address] Vidal Barba MD [address] [place] [address] Health Maintenance Due Date Last Done Comments Alpha-1 Antitrypsin 1968 Cologuard 11/05/1995 Sigmoidoscopy 11/05/1995 Fecal Occult Blood Test 12/16/2012 12/17/2011 DISCUSS TOBACCO CESSATION (REFER TO SMARTSET #9255) 12/29/2015 12/28/2014 (Discussed) Hepatitis B Vaccine (2 [...] filedocumented as of this encounter Care Teams Clinical Informatics Educator Relationship Specialty Start Date End Date Vidal Barba MD [address] [facility] [place] [address] PCP - General Family Medicine 01/02/24 documented as of this encounter
--- NOTE | 2024-02-11 10:47 | Procedure Note ---
Procedure Note Date of Service February 11, 2024 INTUBATION PROCEDURE NOTE: Attending: Dr Kalie Mccoy MD Patient was evaluated and plan to intubate was made for ventilatory failure with severe agitation. Sedative agent used: 100 mg lidocaine, 20 mg etomidate Paralysis agent used: Rocuronium 40 mg Emergent consent was implied given patients rapidly declining clinical status and need for airway protection. The patient was prepared in the appropriate fashion. The patient was easily pre-oxygenated by using [id number] ventilation. With help of CMAC grade 2 vocal cords were visualized and 7.5 Chinese ETT was introduced on first attempt to 23 cm at the lip. The stylette was removed and balloon was inflated with 10mL of air. Appropriate Colorimetric change was appreciated for at least 10 breaths. Bilateral chest rise and breath sounds were appreciated without air sounds in the epigastrium. Patient tolerated the procedure well and there were no immediate complications. Chest Xray to follow for confirming placement. [facility] [place]odes (Charges) Resuscitation Resuscitation: 04130 Endotracheal Intubation, emergency Coding CPT Codes Resuscitation - Resuscitation: 33143 Endotracheal Intubation, emergency ([id number]) Additional Codes Date of Service (PG.SURGERY)
[2024-02-11] MEDS: propofoL 1,000 MG/100 ML VIAL IV SCH (10:50)
--- NOTE | 2024-02-11 11:22 | Procedure Note ---
Procedure Note: Bronchoscopy Procedure PREOPERATIVE DIAGNOSIS: Multilobar pneumonia POSTOPERATIVE DIAGNOSIS: Mucous plugging with multilobar pneumonia in immunocompromised patient PROCEDURE PERFORMED: Flexible fiberoptic bronchoscopy with airway clearance and bronchoalveolar lavage COMPLICATIONS: None. INDICATION: Rule out opportunistic infection PROCEDURE: Emergent consent was applied, patient was already intubated in the ICU. The patient had appropriate oxygen, blood pressure, heart rate, and respiratory rate monitoring applied and monitored continuously throughout the procedure. FiO2 was increased to 100%, PEEP was decreased to 6. Flexible bronchoscope was advanced through the ETT As soon as I advanced the scope through the ETT, thick grayish-white secretions were appreciated in the trachea daina and predominantly in bilateral lower lobes and left upper lobe. They were suctioned out gradually. The trachea appeared normal.The bronchoscope was then advanced through the daina, which was sharp. The scope was then advanced into the right main stem and each segment, subsegement in the right upper lobe, right middle lobe and right lower lobe were visualized. There were no other findings including evidence of mass, anatomic distortions, or hemorrhage. The bronchoscope was subsequently withdrawn and advanced into the left mainstem. Again, each segment and subsegment was well visualized. No specific masses or other lesions were identified throughout the tracheobronchial tree on the left. The bronchoscope was then wedged in the left lower lobe and bronchoalveolar lavage samples were obtained. 120 ml of saline was instilled and 45 ml of fluid was aspirated back.The bronchoscope was withdrawn and the area was suctioned clear. The bronchoscope was then wedged in the left lower lobe and bronchoalveolar lavage samples were obtained. 120 ml of saline was instilled and 40 ml of fluid was aspirated back.The bronchoscope was withdrawn and the area was suctioned clear. Patient did have friable mucosa in the lower lobe and it bled easily on suctioning. The bronchoscope was then withdrawn to the mainstem. The area was suctioned clear. The bronchoscope was then withdrawn. The patient tolerated the procedure well without evidence of desaturation or complications. Bronchoalveolar lavage samples were sent for cell count, Gram stain and bacterial culture, AFB culture and smear, fungal culture and smear, Blastomyces, PJP, cryptococcus and cytology. Recommendations: Follow-up micro, cytology and pathology Follow-up chest x-ray Please note the above document was generated using voice recognition software. It may contain grammatical, syntax or spelling errors.Any formal questions or concerns about the content, text or information contained within the body of this dictation should be directly addressed to the provider for clarification. [facility] [place] Procedure Codes (Charges) Pulmonary/Thoracic Procedure 1: Pulmonary and Thoracic: 65435 Bronchoscopy, clear airways Procedure 2: Pulmonary and Thoracic: 54008 Dx bronchoscopy/BAL
[2024-02-11] MEDS: MAGNESIUM SULFATE / D5W 1 GM/100 ML BAG IV SCH (11:52)
--- NOTE | 2024-02-11 11:52 | XRay Report ---
XR chest 1V portable HISTORY: 73 years-old Female Post Bronchoscopy COMPARISON: 02/11/2024 TECHNIQUE: AP view of the chest FINDINGS: Endotracheal tube overlies the midline approximately 5 cm superior to the daina. Enteric tube course s into the stomach. Unchanged positioning of the right IJ [id number] catheter. Surgical clips over the right neck. Lateral makes her social and alveolar opacities with layering pleural effusions redemonstrated. The b ones appear grossly intact. Bilateral shoulder arthroplasties. No postprocedural pneumothorax identif ied. IMPRESSION: 1. No postprocedural pneumothorax identified. 2. Lines and tubes as above. 3. Extensive mixed interstitial and alveolar opacities redemonstrated with layering pleural effusions . ACT 112: Negative or not required by law. The above report was generated using voice recognition software. It may contain grammatical, syntax o r spelling errors. Electronically signed by: Manjinder Basurto M.D. 02/11/2024 11:51 AM
[2024-02-11] MEDS: fentaNYL citrate 2,500 MCG/250 ML BAG IV SCH (11:57)
[2024-02-11] MEDS: RAPID SEQUENCE INDUCTION BAG ONE (11:59)
[2024-02-11] MEDS: PROPOFOL IV EMULSION 10 MG/ML 100 ML VIAL IV ONE (11:59)
[2024-02-11] MEDS: fentaNYL citrate 2,500 MCG/250 ML BAG IV ONE (11:59)
[2024-02-11] MEDS: HYDROCORTISONE SOD 50 MG in SYRINGE 0 ML IV SCH (12:00)
--- NOTE | 2024-02-11 12:20 | Gastrointestinal Consultation ---
Date of Consultation February 11, 2024 Assessment & Plan (1) Anemia: +FOBT. H/H 8.5/25.3. Baseline hemoglobin around 9. Given her critical condition and lack of overt GI bleeding, would not be appropriate time to consider EGD/colonoscopy. Continue to monitor H/H. Can use prophylactic PPI. Would defer critical care to her ICU team and hospitalists. Will re-evaluate and make further recommendations if patient develops overt GI bleeding. Supervising Physician Co-Signing Physician Notes I examined the patient and reviewed patient's chart , laboratory data and imaging studies. I agree with with assessment and plan of care as suggested by advanced practice provider. Patient is critically ill. Defer GI evaluation. Will sign off and follow as needed. History of Present Illness Reason for Consultation: "GI bleed" Attending Physician: Lila Coates MD History of Present Illness Patient is a 73 yo female with PVD, MR, atrial septal aneurysm, lung cancer currently on treatment, COPD, DM2, CRI, SIADH, chronic anemia (baseline 9), GERD, and tobacco use. Patient was reportedly brought to the ED due to poor appetite & weakness. She was experiencing falls at home and sleeping a lot. She had cough and shortness of breath. In the ED, she was hypotensive and found to be in septic shock. She was noted to have pneumonia and was initiated on IV antibiotic treatments. Troponin 2901. She was hypotensive and taken to the ICU on pressors. Patient's respiratory status deteriorated this morning and she was intubated. No overt GI bleeding. H/H 8.5/25.3. GI involved due to anemia & FOBT+. Patient is unable to provide further symptoms/details given her acute condition. I do not know when/if she last had an EGD or colonoscopy. Allergies Allergy/AdvReac Type Severity Reaction Status Date / Time NSAIDS (Non-Steroidal AdvReac Intermediate Hives Verified 12/16/23 07:27 Anti-Inflamma Home Medications Medication Instructions Recorded Confirmed Type amlodipine 5 mg tablet 2.5 mg PO QAM 12/04/23 02/10/24 History budesonide 160 mcg-glycopyr 9 2 inh inhalation QPM 12/04/23 02/10/24 History mcg-formot 4.8 mcg/actuation HFA inhaler (Breztri Aerosphere) bupropion HCl 150 mg 24 hr tablet, 150 mg PO QAM 12/04/23 02/10/24 History extended release dapagliflozin propanediol 5 mg 5 mg PO QAM 12/04/23 02/10/24 History tablet (Farxiga) dexamethasone 4 mg tablet See Rx Instructions .Route .COMPLEX 12/04/23 02/10/24 History lansoprazole 15 mg capsule,delayed 15 mg PO QAM 12/04/23 02/10/24 History release losartan 100 mg tablet 100 mg PO QAM 12/04/23 02/10/24 History osimertinib 40 mg tablet (Tagrisso) 40 mg PO QAM 12/04/23 02/10/24 History rosuvastatin 10 mg tablet 10 mg PO QAM 12/04/23 02/10/24 History venlafaxine 150 mg 150 mg PO QAM 12/04/23 02/10/24 History capsule,extended release 24 hr (Effexor XR) acetaminophen 500 mg tablet 500 mg PO Q6H PRN Pain 02/10/24 02/10/24 History albuterol sulfate 2.5 mg/3 mL 2.5 mg inhalation Q4H PRN Wheezing 02/10/24 02/10/24 History (0.083 %) solution for nebulization albuterol sulfate 90 mcg/actuation 2 puff inhalation 6XD PRN Wheezing 02/10/24 02/10/24 History aerosol inhaler aspirin 81 mg tablet,delayed 81 mg PO DAILY 02/10/24 02/10/24 History release lidocaine-prilocaine 2.5 %-2.5 % 1 applic topical UD 02/10/24 02/10/24 History topical cream melatonin 5 mg tablet 5 mg PO HS 02/10/24 02/10/24 History omeprazole 20 mg capsule,delayed 20 mg PO QAM 02/10/24 02/10/24 History release ondansetron HCl 8 mg tablet 8 mg PO Q8H PRN Nausea And Vomiting 02/10/24 02/10/24 History prochlorperazine maleate 10 mg 10 mg PO Q6H PRN Nausea 02/10/24 02/10/24 History tablet propranolol 60 mg capsule,24 60 mg PO QAM 02/10/24 02/10/24 History hr,extended release trazodone 100 mg tablet 100 mg PO QAM 02/10/24 02/10/24 History Patient History Medical History Hyponatremia AAA (abdominal aortic aneurysm) per 09/10/23 imagin.7mm CKD (chronic kidney disease) stage 4, GFR 15-29 ml/min Carotid artery disease s/p R CEA Peripheral vascular disease Diverticular disease No hospitalizations - unsure when dx Acid reflux Diabetes mellitus, type 2 Anxiety Migraine HTN (hypertension) Irregular heart beat Follows Dr Hannah Springer; 'frequent PVCs' per chart review COPD (chronic obstructive pulmonary disease) 55 pack year smoking hx Lung cancer Per Oncology note, "Right lung mass, FNA c/w non small cell lung cancer favor adenocarcinoma. 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" Surgical History H/O vascular surgery L leg stent x 2 Hx of hysterectomy History of lung biopsy History of right shoulder replacement History of carotid endarterectomy R CEA History of bilateral hip replacements History of total left knee replacement Hx of colonoscopy Hx of cholecystectomy Hx of cataract surgery Bilateral Social History Smoking Status: Never smoker Tobacco Type: Cigarettes Cigarettes Per Day: 1/2 pack; Second Hand Exposure: No; Do You Dip or Chew Tobacco: No; Hx Alcohol Use: No Hx Substance Use: No Preferred Language: Belarusian Communication Ability: Impaired Production Operator Required: No Beliefs That Will Affect Care: None Current Living Situation: Spouse Feels Safe at Home: Yes Assistive Devices: Bedside Commode, Lift Chair, Walker and Wheelchair Review of Systems Review of Systems: Unable to participate due to critical condition Physical Exam Constitutional: + ill appearing Respiratory: Currently intubated Gastrointestinal (Abdomen): normal bowel sounds, soft, nontender, no hepatosplenomegaly Results & Data Vital Signs (Past 12 Hours) Vital Signs Temp Pulse Resp BP Pulse Ox O2 Del Method FiO2 02/11/24 11:46 80 02/11/24 11:45 100 02/11/24 11:34 87 24 98 100 02/11/24 11:25 118/68 02/11/24 11:20 109/57 L 02/11/24 11:20 109/57 L 02/11/24 11:10 102/57 L 02/11/24 11:10 102/57 L 02/11/24 11:05 102/59 L 02/11/24 11:00 119/68 02/11/24 11:00 119/68 02/11/24 11:00 119/68 02/11/24 10:44 116/65 02/11/24 10:42 37.0 C 99 H 94 Mechanical Vent 02/11/24 10:42 125/66 02/11/24 10:41 100 02/11/24 10:39 37.0 C 100 H 28 H 94 02/11/24 10:35 148/72 H 02/11/24 09:30 106/66 02/11/24 09:09 91 H 22 92 BiPAP 02/11/24 09:00 111/63 02/11/24 09:00 111/63 02/11/24 09:00 90 16 92 BiPAP 02/11/24 09:00 BiPAP 02/11/24 08:30 101/61 02/11/24 08:27 88 20 93 BiPAP 02/11/24 08:12 108/66 02/11/24 08:12 108/66 02/11/24 08:06 36.6 C 90 20 93 BiPAP 02/11/24 08:00 101/61 02/11/24 07:54 35.9 C L 94 H 15 91 BiPAP 02/11/24 07:30 102 H 02/11/24 07:00 93 H 130/72 92 BiPAP 40 02/11/24 06:18 36.6 C 100 H 17 96 02/11/24 06:16 119/76 02/11/24 06:03 37.0 C 100 H 14 97 02/11/24 06:01 97/66 L 02/11/24 06:01 97/66 L 02/11/24 05:54 37.0 C 99 H 17 97 02/11/24 05:35 110/62 02/11/24 05:35 110/62 02/11/24 05:35 110/62 02/11/24 05:18 36.9 C 101 H 15 96 02/11/24 05:15 86/50 L 02/11/24 05:15 86/50 L 02/11/24 05:15 86/50 L 02/11/24 05:15 86/50 L 02/11/24 05:12 37.1 C 101 H 16 97 02/11/24 04:48 37.0 C 102 H 22 95 02/11/24 04:47 112/87 02/11/24 04:47 112/87 02/11/24 04:45 37.0 C 102 H 22 96 02/11/24 04:31 129/65 02/11/24 04:31 129/65 02/11/24 04:21 36.9 C 96 H 22 94 02/11/24 04:18 79/53 L 02/11/24 04:18 79/53 L 02/11/24 04:18 36.9 C 95 H 24 91 02/11/24 04:16 132/105 H 02/11/24 04:16 132/105 H 02/11/24 04:15 36.9 C 94 H 37 H 93 02/11/24 04:06 36.4 C L 93 H 18 126/56 L 93 02/11/24 04:03 36.9 C 94 H 17 97 02/11/24 03:46 126/56 L 02/11/24 03:45 36.8 C 98 H 28 H 93 02/11/24 03:36 36.7 C 98 H 19 95 02/11/24 03:31 105/69 02/11/24 03:31 105/69 02/11/24 03:17 104/60 02/11/24 02:51 36.3 C L 97 H 18 111/65 94 02/11/24 02:45 87/66 L 02/11/24 02:45 87/66 L 02/11/24 02:39 36.6 C 98 H 15 94 02/11/24 02:33 36.6 C 98 H 27 H 95 02/11/24 02:33 96 H 33 H 100 40 02/11/24 02:24 98 H 17 97 02/11/24 02:21 36.4 C L 97 H 16 87/66 L 93 02/11/24 02:16 98/65 L 02/11/24 02:16 98/65 L 02/11/24 02:12 96 H 24 98 02/11/24 02:06 36.4 C L 97 H 16 98/65 L 98 02/11/24 02:03 96 H 25 H 97 02/11/24 02:01 104/52 L 02/11/24 02:01 104/52 L 02/11/24 01:50 36.4 C L 95 H 16 107/71 99 02/11/24 01:46 107/71 02/11/24 01:45 36.4 C L 95 H 17 92 02/11/24 01:39 36.4 C L 96 H 28 H 96 02/11/24 01:27 96 H 34 H 93 02/11/24 01:15 106/75 02/11/24 01:12 36.3 C L 94 H 15 90 02/11/24 01:01 105/54 L 02/11/24 01:00 36.3 C L 94 H 26 H 91 02/11/24 00:54 110/46 L 02/11/24 00:54 110/46 L 02/11/24 00:48 94 H 26 H 92 02/11/24 00:32 97/58 L 02/11/24 00:32 97/58 L 02/11/24 00:32 97/58 L 02/11/24 00:30 35.5 C L 93 H 27 H 94 PG Care Time/CCT Total # of Minutes Spent Total Time Spent with Patient: Total time spent is greater than 50% in coordination of care (as documented) at patient's floor/unit and/or counseling patient: Coding Level of Care Code 31963 INT INP/OBS CARE 3/75MIN Diagnoses Anemia D64.9 Anemia type: unspecified type (1) Anemia Anemia type: unspecified type Qualified Code(s): D64.9 - Anemia, unspecified
[2024-02-11 12:38] LABS: iSTAT Allen Test Pass; iSTAT Art Bld Gas pCO2 Correct 42 mmHg (35-46); iSTAT Art Bld Gas pH Corrected 7.219 (7.35-7.45); iSTAT Arterial Blood Gas HCO3 17 meg/L (19-24); iSTAT Arterial Blood Gas pCO2 43 mmHg (35-46); iSTAT Arterial Blood Gas pH 7.21 (7.35-7.45); iSTAT Arterial Blood Gas pO2 44 mmHg (80-95); iSTAT Arterial Blood Gas pO2 C 42; iSTAT Carbon Dioxide 19 mmol/L (24-31); iSTAT FiO2 100 %; iSTAT Hematocrit 24 % (37-47); iSTAT Hemoglobin 8.2 g/dl (12.0-16.0); iSTAT Potassium 3.9 mmol/L (3.3-5.0); iSTAT Sample Type Arterial; iSTAT Site R Radial; iSTAT Sodium 125 mmol/L (135-144); iSTAT SpO2 95
[2024-02-11 12:39] LABS: Fluid Mono/Macrophage 10 %; Lymphocyte Body Fluid Man 10 %; Neutrophil Body Fluid Man 72 %
--- NOTE | 2024-02-11 14:21 | Hospitalist Progress Note ---
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 Patient also noted to have cough with shortness of breath, had been complaining of abdominal discomfort but denied black or bloody stool. At the ED, her SBP was in 70s, lowest O2 noted was saturation in 80s. She is being managed for the following: Multifocal pneumonia Severe sepsis with shock in an immunocompromised patient Hypoxemic respiratory failure Metabolic encephalopathy Possible adrenal insufficiency: given intermittent Decadron Rx during chemotherapy. Random cortisol wnl. Pt on hydrocortisone in ICU. Patient presenting with cough and shortness of breath, had systolic blood pressure in 70s. Admitting CXR and CTA chest reviewed. Patient started on vasopressor support after IV fluid resuscitation in the ED. Continue with doxycycline and Zosyn. Patient being managed in ICU. On hydrocortisone. Patient was intubated 02/10 a.m. due to ventilatory failure with severe agitation. Home neuropsychotropic medications and BP meds on hold. Acute on chronic anemia: Baseline hemoglobin around 9, admitting hemoglobin of 6.9, FOBT done in the ED was positive. Status post 2 unit PRBC, currently hemoglobin around 8.2. GI on board, continue with PPI, no plan for current intervention. Monitor H&H, transfuse for hemoglobin less than 8. Home aspirin on hold. Pt NPO. Acute on chronic hyponatremia: Patient with chronic hyponatremia secondary to SIADH. Sodium level around 130. Admitting sodium level of 122, nephrology on board, plan for low-dose NS. Sodium slowly improving, currently at 125. Monitor BMP every 6-8 hours. Acute kidney injury over CKD status 4: Baseline creatinine around 1.6-1.8, admitting creatinine of 2.8. Likely ischemic ATN given septic shock, anemia. Creatinine minimally improving, patient on IV fluid, nephrology following. Daily BMP. Avoid nephrotoxics. Type II NSTEMI: Patient with elevated troponin at presentation, down trended. EKG with no acute ST or T changes. Echo with EF of 60 to 65%, LV systolic function normal, no regional wall motion abnormalities of LV noted. Demand ischemia secondary to acute illness. Continue telemetry. EKG daily and as needed. Right ankle fracture: Right ankle x-ray with age-indeterminate fracture of proximal tip of the fifth metatarsal tubercle. Continue to follow, pain management as appropriate. Other chronic medical conditions: Continue with/resume home meds as and when able. Two lung primary malignancies ongoing chemotherapy/Tagrisso Rx: Hold Rx due to acute illness. CTAP with concern for pelvic bone metastasis, will likely need MRI as outpatient once out of acute illness. hx PVD status post stent moderate MR (TTE 2021) atrial septal aneurysm as per records DM2 on oral medications, well-controlled as of recent hemoglobin A1c of 5.02 July 2023 ongoing tobacco abuse DVT prophylaxis. SCDs re: GI bleed Full code Patient Mr. Ryne Bustillos, contact #[phone]. Updated over the phone 02/10, he is aware of pt's intubation status and would like to pursue w/ dialysis if it were to come to it. Total time: 88 min Text document was generated using [employer] voice recognition software. It may contain grammatical or spelling errors. Kindly contact undersigned for clarification of any documentation item in question. Admission and Anticipated Discharge Date Admission Date: February 10, 2024 Subjective Patient was seen and examined at bedside. Patient was lying in bed, mechanically ventilated and intubated, on sedation. ROS not able. Per RN, no BM, patient with decreased urine output, has been restless. Patient was intubated in the morning for ventilatory failure with severe agitation. Physical Exam Physical Exam: GENERAL: Intubated, mechanically ventilated, sedated. SKIN: Pallor, warm HEENT: Sparse hair, pale palpebral conjunctivae, no ptosis, dry buccal mucosa NECK : Supple CHEST : b/l crackles and conducted breath sounds HEART : RRR, systolic murmur ABDOMEN: Some distention, nontender EXTREMITIES : No LE swelling. NEUROLOGIC : sedated Results & Data Results & Data Vital Signs (Past 12 Hours) Vital Signs Temp Pulse Resp BP Pulse Ox O2 Del Method FiO2 02/11/24 13:00 104/57 L 02/11/24 12:55 101/59 L 02/11/24 12:50 101/54 L 02/11/24 12:50 101/54 L 02/11/24 12:50 101/54 L 02/11/24 12:45 104/58 L 02/11/24 12:45 36.3 C L 81 26 H 02/11/24 12:40 99/56 L 02/11/24 12:30 85/55 L 02/11/24 12:30 85/55 L 02/11/24 12:20 108/67 02/11/24 12:20 108/67 02/11/24 12:18 36.4 C L 80 24 94 02/11/24 12:15 100/54 L 02/11/24 12:05 102/58 L 02/11/24 12:05 102/58 L 02/11/24 12:00 106/59 L 02/11/24 12:00 106/59 L 02/11/24 12:00 36.5 C 82 24 97 02/11/24 11:55 102/60 02/11/24 11:50 106/61 02/11/24 11:46 80 02/11/24 11:45 100 02/11/24 11:42 36.6 C 81 24 100 02/11/24 11:40 109/63 02/11/24 11:40 80 109/63 Mechanical Vent 02/11/24 11:40 109/63 02/11/24 11:34 87 24 98 100 02/11/24 11:25 118/68 02/11/24 11:20 109/57 L 02/11/24 11:20 109/57 L 02/11/24 11:10 102/57 L 02/11/24 11:10 102/57 L 02/11/24 11:05 102/59 L 02/11/24 11:00 119/68 02/11/24 11:00 119/68 02/11/24 11:00 119/68 02/11/24 10:44 116/65 02/11/24 10:42 37.0 C 99 H 94 Mechanical Vent 02/11/24 10:42 125/66 02/11/24 10:41 100 02/11/24 10:39 37.0 C 100 H 28 H 94 02/11/24 10:35 148/72 H 02/11/24 09:30 106/66 02/11/24 09:09 91 H 22 92 BiPAP 02/11/24 09:00 111/63 02/11/24 09:00 111/63 02/11/24 09:00 90 16 92 BiPAP 02/11/24 09:00 BiPAP 02/11/24 08:30 101/61 02/11/24 08:27 88 20 93 BiPAP 02/11/24 08:12 108/66 02/11/24 08:12 108/66 02/11/24 08:06 36.6 C 90 20 93 BiPAP 02/11/24 08:00 101/61 02/11/24 07:54 35.9 C L 94 H 15 91 BiPAP 02/11/24 07:30 102 H 02/11/24 07:00 93 H 130/72 92 BiPAP 40 02/11/24 06:18 36.6 C 100 H 17 96 02/11/24 06:16 119/76 02/11/24 06:03 37.0 C 100 H 14 97 02/11/24 06:01 97/66 L 02/11/24 06:01 97/66 L 02/11/24 05:54 37.0 C 99 H 17 97 02/11/24 05:35 110/62 02/11/24 05:35 110/62 02/11/24 05:35 110/62 02/11/24 05:18 36.9 C 101 H 15 96 02/11/24 05:15 86/50 L 02/11/24 05:15 86/50 L 02/11/24 05:15 86/50 L 02/11/24 05:15 86/50 L 02/11/24 05:12 37.1 C 101 H 16 97 02/11/24 04:48 37.0 C 102 H 22 95 02/11/24 04:47 112/87 02/11/24 04:47 112/87 02/11/24 04:45 37.0 C 102 H 22 96 02/11/24 04:31 129/65 02/11/24 04:31 129/65 02/11/24 04:21 36.9 C 96 H 22 94 02/11/24 04:18 79/53 L 02/11/24 04:18 79/53 L 02/11/24 04:18 36.9 C 95 H 24 91 02/11/24 04:16 132/105 H 02/11/24 04:16 132/105 H 02/11/24 04:15 36.9 C 94 H 37 H 93 02/11/24 04:06 36.4 C L 93 H 18 126/56 L 93 02/11/24 04:03 36.9 C 94 H 17 97 02/11/24 03:46 126/56 L 02/11/24 03:45 36.8 C 98 H 28 H 93 02/11/24 03:36 36.7 C 98 H 19 95 02/11/24 03:31 105/69 02/11/24 03:31 105/69 02/11/24 03:17 104/60 02/11/24 02:51 36.3 C L 97 H 18 111/65 94 02/11/24 02:45 87/66 L 02/11/24 02:45 87/66 L 02/11/24 02:39 36.6 C 98 H 15 94 02/11/24 02:33 36.6 C 98 H 27 H 95 02/11/24 02:33 96 H 33 H 100 40 02/11/24 02:24 98 H 17 97 02/11/24 02:21 36.4 C L 97 H 16 87/66 L 93 02/11/24 02:16 98/65 L 02/11/24 02:16 98/65 L 02/11/24 02:12 96 H 24 98 02/11/24 02:06 36.4 C L 97 H 16 98/65 L 98 02/11/24 02:03 96 H 25 H 97 02/11/24 02:01 104/52 L 02/11/24 02:01 104/52 L
--- NOTE | 2024-02-11 16:37 | Communication Note ---
Date of Service: February 11, 2024 Critical care addendum: I was called by the nurse to be at bedside as patient was getting restless trying to take the mask off She was already on Precedex 1 at the time of examination Given the ventilatory failure and patient's inability to cooperate, plan to intubate was made. Given the worsening chest x-ray as well as patient being immunosuppressed, bronchoscopy was also performed after intubation. Unfortunately patient is not making any urine. There is no urgent need for dialysis right now but if there is no urine output in the next 24 hours then she will probably end up on dialysis This was discussed with the patient's and he is in agreement with it. Patient's was called and updated regarding patient's condition. All questions and queries were answered in depth Overall prognosis is guarded. I have personally spent additional 36 minutes of critical care time in the direct management of this patient. This is a life/limb threatening event. This includes time spent evaluating patient, direct bedside care, chart review, placing orders, interpretation of diagnostic studies, discussion with consultants, patient, and family members, as well as other required patient management activities. This time is exclusive of all separately billable procedures, and teaching time and separate from and in addition to any other critical care service time. Please note the above document was generated using voice recognition software. It may contain grammatical, syntax or spelling errors. Coding Level of Care Code 51020 CRITICAL CARE EA ADD 30M
[2024-02-11 16:56] LABS: Estimated Average Glucose 128 mg/dl; Hemoglobin A1C 6.1 % (4.5-5.6)
[2024-02-11 19:24] LABS: Calcium 7.5 mg/dl (8.6-10.3); Creatinine Clr Calc Pharmacy 17.9 ml/min; Potassium 3.7 mmol/L (3.5-5.1)
[2024-02-11 21:33] LABS: iSTAT Allen Test Pass; iSTAT Art Bld Gas pCO2 Correct 27 mmHg (35-46); iSTAT Art Bld Gas pH Corrected 7.367 (7.35-7.45); iSTAT Arterial Blood Gas HCO3 16 meg/L (19-24); iSTAT Arterial Blood Gas pCO2 28 mmHg (35-46); iSTAT Arterial Blood Gas pH 7.36 (7.35-7.45); iSTAT Arterial Blood Gas pO2 66 mmHg (80-95); iSTAT Arterial Blood Gas pO2 C 63; iSTAT Carbon Dioxide 16 mmol/L (24-31); iSTAT FiO2 50 %; iSTAT Hematocrit 24 % (37-47); iSTAT Hemoglobin 8.2 g/dl (12.0-16.0); iSTAT Potassium 3.6 mmol/L (3.3-5.0); iSTAT Sample Type Arterial; iSTAT Site L Radial; iSTAT Sodium 124 mmol/L (135-144); iSTAT SpO2 95
[2024-02-12 04:50] LABS: Hematocrit (blood only) 23.6 % (37.0-47.0); Hemoglobin 8.1 g/dl (12.0-16.0); Mean Corpuscular Hemoglobin 28.7 pg (25.0-34.0); Mean Corpuscular Hgb Conc 34.3 g/dL (32.0-36.0); Mean Corpuscular Volume 83.7 fL (80.0-100.0); Mean Platelet Volume 9.6 fL (9.4-12.4); Platelet Count 211 K/uL (130-400); RDW Coefficient of Variation 17.9 % (11.5-14.5); RDW Standard Deviation 54.5 fL (36.4-46.3); Red Blood Count 2.82 M/uL (4.20-5.40); White Blood Count 13.13 K/ul (4.8-10.8)
[2024-02-12 05:04] LABS: BUN Creatinine Ratio 15.8 (10-20); Calcium 7.5 mg/dl (8.6-10.3); Creatinine Clr Calc Pharmacy 17.3 ml/min; Magnesium 2.5 mg/dl (1.7-2.4); Phosphorus 4.1 mg/dl (2.5-4.9); Potassium 3.7 mmol/L (3.5-5.1)
[2024-02-12 05:28] LABS: iSTAT Allen Test Pass; iSTAT Art Bld Gas pCO2 Correct 25 mmHg (35-46); iSTAT Art Bld Gas pH Corrected 7.436 (7.35-7.45); iSTAT Arterial Blood Gas HCO3 17 meg/L (19-24); iSTAT Arterial Blood Gas pCO2 26 mmHg (35-46); iSTAT Arterial Blood Gas pH 7.42 (7.35-7.45); iSTAT Arterial Blood Gas pO2 74 mmHg (80-95); iSTAT Arterial Blood Gas pO2 C 70; iSTAT Carbon Dioxide 18 mmol/L (24-31); iSTAT FiO2 45 %; iSTAT Hematocrit 22 % (37-47); iSTAT Hemoglobin 7.5 g/dl (12.0-16.0); iSTAT Potassium 3.5 mmol/L (3.3-5.0); iSTAT Sample Type Arterial; iSTAT Site L Radial; iSTAT Sodium 124 mmol/L (135-144); iSTAT SpO2 97
[2024-02-12 05:31] LABS: Basophils # (auto) 0.02 K/uL (0.00-0.20); Basophils % (auto) 0.2 %; Immature Granulocytes # (auto) 0.68 K/uL (0.01-0.20); Immature Granulocytes % (auto) 5.2 %; Lymphocytes # (auto) 0.78 K/uL (1.20-3.40); Lymphocytes % (auto) 5.9 %; Monocytes # (auto) 0.36 K/uL (0.11-0.59); Monocytes % (auto) 2.7 %; Neutrophils # (auto) 11.29 K/uL (1.40-6.50)
--- NOTE | 2024-02-12 07:16 | Critical Care Progress Note ---
Date of Service February 12, 2024 Assessment & Plan (1) Septic shock: (2) Hyponatremia: (3) Peripheral vascular disease: (4) Diabetes mellitus, type 2: (5) HTN (hypertension): (6) COPD (chronic obstructive pulmonary disease): (7) Lung cancer: (8) Anxiety: (9) Respiratory failure, acute and chronic: (10) [place] (acute kidney injury): Plan Reason Critically Ill: 73-year-old female with past medical history significant for COPD, lung cancer (undergoing treatment with chemotherapy), anxiety and depression, peripheral vascular disease, DM type II, HLD, HTN presents to the ICU with septic shock likely from pulmonary source, currently requiring vasopressor support with Levophed drip. Neuro - [facility] ICU: Negative Cardiac - Shock Likely septic given the multilobar pneumonia Random cortisol will be on the lower side given patient is on chronic prednisone - Patient with elevated troponin, downtrending. - Titrate Levophed to maintain MAP greater than 65 Patient started on hydrocortisone 02/11/2024 --Elevated troponin Likely type II SD EKG changes No chest pain and no ST elevation on EKG. Suspect demand ischemia Patient takes prednisone on a daily basis, will change it to Solu-Medrol while in the hospital Respiratory - -- Vent dependent respiratory failure with acute on chronic hypoxic and hypercapnic respiratory failure Multifactorial Multilobar pneumonia -- COPD and emphysema - Scheduled nebs, DuoNeb as needed --History of squamous cell carcinoma of the lung On osimertinib CTA chest 02/10/2024 personally reviewed: Patchy opacities appreciated in the left upper lobe with some cavitary lesion Dense consolidative process in the left lower lobe with loculated left-sided pleural effusion Cavitary lesion in the right lower lobe perifissural, right upper lobe linear nodular opacity 3.1 cm x 5 cm Centrilobular and paraseptal emphysema appreciated bilaterally Moderate hiatal hernia Significant mediastinal lymphadenopathy GI - Probable GI bleed Patient with positive Hemoccult, no significant melena per report - GI consulted. They recommend conservative management for the time being RENAL/LYTES - Hyponatremiawith history of SIADH, etiology is most likely Tagrisso Serum osmolality 261, urine osmolality, 375, urine sodium 12 Patient with hypoosmolar hyponatremia with sodium of 122 on admission. - Goal sodium correction 6-8 mill equivalents per 24 hours -Nephrology on board [place] On CKD Likely prerenal in the setting of hypotension. Baseline creatinine around 1.5 - Avoid nephrotoxins renally adjust medications - Maintain MAP greater than 65 to ensure renal perfusion - Strict I's and O's ENDO - DM type II Continue with ICU hyperglycemic protocol HEME - Acute on chronic anemia S/p 1 unit PRBC on 02/10/2024. Has received multiple transfusions in the past as well Follow-up iron studies Monitor H&H ID - Sepsislikely pulmonary source with left lower lobe consolidation noted on CTA chest, and immunocompromise patient receiving chemotherapy for lung cancer. - BioFire negative, nasal MRSA negative - Urinalysis unremarkable - Follow blood and sputum culture --Prophylaxis VTE: IPC GI: Pantoprazole Lines: Right-sided Port-A-Cath, peripheral Diet: Start tube feeds Plan: In/out: +1.8 L, urine output 330 mL ABG 7.42/ Respirate was decreased to 18. Patient was given 2 A of bicarb push Chest x-ray from today does not show any significant change compared to yesterday Patient's electrolytes are still within normal range. There is no emergent need for dialysis. Will give a trial of 2-3 mg of bumetanide in the evening if the urine output does not picker / packer. Start the patient on tube feeds Even the potassium is 3.7, I would not replace it as we do not know how her creatinine function is going to be Repeat BMP later today Patient's Ryne [phone] was updated regarding patient's critical condition I have personally spent 47 minutes of critical care time in the direct management of this patient. This is a life/limb threatening event. This includes time spent evaluating patient, direct bedside care, chart review, placing orders, interpretation of diagnostic studies, discussion with consultants, patient, and family members, as well as other required patient management activities. This time is exclusive of all separately billable procedures, and teaching time and separate from and in addition to any other critical care service time. Please note the above document was generated using voice recognition software. It may contain grammatical, syntax or spelling errors. Admission and Anticipated Discharge Date Admission Date: February 10, 2024 Subjective Patient seen and examined at bedside. No acute distress, notable symptoms overnight She was on 100 of fentanyl, 35 propofol at the time of examination. She was on Levophed 0.03 with MAP in the 90s. She was RASS -2, as per the nurse patient does move around the extremities when the sedation is turned down She was breathing with the went Afebrile Review of Systems 2 Review of Systems: Unobtainable due to endotracheal tube Physical Exam 2 Physical Exam: Constitutional: No acute distress HEENT: PERRLA Respiratory system: Decreased air entry bilaterally, no wheeze, rhonchi, positive crackles bilaterally CVS: S1-S2 positive, no murmurs or gallops Abdomen: Soft, nontender, nondistended, positive bowel sounds x4 Extremities: +2 pulses bilaterally radialis/ dorsalis pedis, no cyanosis, positive pitting edema bilateral lower extremity Neuro: RASS -2, moving all extremities spontaneously Psych: Unable to assess G/U: Positive [place] Skin: no rashes, warm and dry Lymphatic: no cervical or axillary lymphadenopathy Results & Data Results & Data Vital Signs (Past 12 Hours) Vital Signs Pulse Resp Pulse Ox O2 Del Method FiO2 02/12/24 04:00 55 02/12/24 02:30 85 24 97 45 02/12/24 00:00 55 02/11/24 20:27 78 24 95 55 02/11/24 20:00 Mechanical Vent 02/11/24 20:00 55 Laboratory Results 02/12/24 04:33 02/12/24 04:33 Coding Level of Care Code 11851 CRITICAL CARE 1ST 30-74M Diagnoses Septic shock A41.9; R65.21 Hyponatremia E87.1 Peripheral vascular disease I73.9 Diabetes mellitus, type 2 E11.9 HTN (hypertension) I10 COPD (chronic obstructive pulmonary disease) J44.9 Lung cancer C34.90 Anxiety F41.9 Respiratory failure, acute and chronic J96.21 Respiratory failure complication: hypoxia [place] (acute kidney injury) N17.9 (9) Respiratory failure, acute and chronic Respiratory failure complication: hypoxia Qualified Code(s): J96.21 - Acute and chronic respiratory failure with hypoxia
--- NOTE | 2024-02-12 07:30 | XRay Report ---
EXAM: XR chest 1V portable CLINICAL HISTORY: F/U KAB SRM TECHNIQUE: X-ray image of the chest obtained in 1 frontal projection. COMPARISON: Prior X-ray dated 02/11/2024 for comparison. FINDINGS: Pulmonary Parenchyma: Unchanged patchy air space opacities and reticular thickening in bilateral lungs, more in basal zones. Prominent bilateral parahilar markings. Bilateral CP angles obscured suggesting pleural effusion. Heart and Mediastinum: Heart size and shape are normal. No mediastinal widening or masses. No hilar or mediastinal lymphadenopathy. Bony Thorax: Bilateral shoulder replacement prosthesis. Mild spondylotic changes in thoracic spine. Bony thorax appears intact without fractures or deformities. Soft Tissues: Soft tissues overlying the chest wall are unremarkable. Right CVL with tip in SVC. ETT with tip 3.3 cm above daina. Normal position of NG tube. IMPRESSION: 1. Unchanged patchy air space opacities, reticular thickening in bilateral lungs more in basal zones and bilateral pleural effusion. 2. Right CVL with tip in SVC. 3. ETT with tip 3.3 cm above daina. 4. Normal position of NG tube. Electronically signed by Ragini Solis 02-12-2024 07:29 AM
[2024-02-12] MEDS: SODIUM BICARB 8.4% INJ 50 MEQ/50 ML SYR IV ONE (07:53)
[2024-02-12] MEDS: SODIUM BICARB 8.4% INJ 50 MEQ/50 ML SYR IV STA (07:53)
--- NOTE | 2024-02-12 09:11 | Nephrology Progress Note ---
Date of Service February 12, 2024 Assessment & Plan (1) Acute kidney injury (nontraumatic): Plan: oliguric KY on CKD 4 (basleine creatinine 1.6-2.0 in 2023 though more 1.6-1.7 w/ stable weight December). presented with creatinine 2.8 > 2.6 > 2.7 this AM. s/p IV contrast for CTA chest 02/09. reviewed OP records > no prior bicarb drops or e/o metabolic acidosis [employer]. she has NAGMA now and has since arrival; doubt role for Farxiga related ketoacidosis. she is 5.2 L positive so far presume ischemic ATN given hypotension, anemia and IV contrast. today phos, mag acceptable; AGMA present past 2 days and not on admission >> again likeliest cause is renal failure, septic shock -for diuretic challenge once we are about 48 hr out from IV contrast exposure >> 2-3 mg bumex to be ordered by critical care -no need for IVF -continue pressor to keep map > 65 -daily bmp at least -still w/ at least moderate likelihood to need dialysis next 24-48 hrs but every day she goes w/o it makes odds of needing it lower, assuming other things stable; consent obtained from 02/10 and on chart Care coordinated w/ Dr Mccoy in person regarding diuretic challenge, likelihood of need for dialysis, overall respiratory status and plan > we are in agreement. (2) Hyponatremia: Plan: improving but no longer severe but moderate hyponatremia. presented w/ sNa 122 and dropped to 118 by 0100 02/10. 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 -sodium 126 today -goal sNa is no more than 132 by tomorrow am -monitor at least q12 hr -no specific therapy at this time other than minimizing further volume overload and seeing if she can tolerate diuretics (3) CKD (chronic kidney disease) stage 4, GFR 15-29 ml/min: Plan: CKD 4 though past month w/ some improvement in creatinine (more 1.6-1.7) and wt maintained (4) Hypomagnesemia: Plan: mild; on platin based therapy >> monitor daily; mag 2.5 today (5) Respiratory failure, acute and chronic: Plan: per pulmonary; failed bipap; multifactorial from copd, emphysema, multilobar pneumonia, lung ca x 2 types > f/u bronch results -5.2L + and oliguric > about 15 mL/hr UOP worsening/slowing >> ok w/ diuretic challenge (6) Lung cancer: Plan: on VEGF/TK inhibitor AND taxol / carboplatin/ ketruda and on intermittent decadron (last tx 01/22) (7) Pneumonia: Plan: severe; multilobar; cavitary lesions on imaging RLL, JAKE zosyn/doxy Admission and Anticipated Discharge Date Admission Date: February 10, 2024 Subjective no overnight events; remains intubated; still about 15 ml/hr UOP; coming down on pressor at least when I was in the room Review of Systems 2 Review of Systems: Unobtainable due to endotracheal tube Physical Exam 2 Constitutional: well developed, well nourished and + mechanically ventilated; no acute distress ENMT: Mouth: + dry oral mucous membranes Respiratory: normal respiratory effort (on vent) Auscultation: + diminished lung sounds Cardiovascular: Rate/Rhythm: regular rate and regular rhythm Extremities: n o edema Gastrointestinal (Abdomen): Inspection/Auscultation: normal bowel sounds P ercussion/Palpation: abdomen soft; abdomen nontender Musculoskeletal: Extremities: strength 5/5 throughout Skin: no rashes, warm and dry Results & Data Vital Signs (Past 12 Hours) Vital Signs Pulse Resp Pulse Ox O2 Del Method FiO2 02/12/24 08:18 Mechanical Vent 02/12/24 08:00 45 02/12/24 07:43 94 H 24 95 45 02/12/24 04:00 55 02/12/24 02:30 85 24 97 45 02/12/24 00:00 55 Laboratory Results 02/12/24 04:33 02/12/24 04:33 (5) Respiratory failure, acute and chronic Respiratory failure complication: hypoxia Qualified Code(s): J96.21 - Acute and chronic respiratory failure with hypoxia (6) Lung cancer Laterality: unspecified laterality Lung location: unspecified part of lung Qualified Code(s): C34.90 - Malignant neoplasm of unspecified part of unspecified bronchus or lung (7) Pneumonia Laterality: left Lung location: lower lobe of lung Pneumonia type: due to unspecified organism Qualified Code(s): J18.9 - Pneumonia, unspecified organism
[2024-02-12] MEDS: TUBE FEEDING WATER FLUSH OG SCH (11:43)
--- NOTE | 2024-02-12 12:34 | Hospitalist Progress Note ---
Date of Service February 12, 2024 Assessment & Plan (1) Encephalopathy: Plan: 73-year-old lady with PMH of PVD s/p surgery, moderate MR [TTE 2021], atrial septal aneurysm, lung adenocarcinoma on Tagrisso, squamous cell carcinoma of the lung on chemotherapy, COPD, DM2 on oral meds, CKD [baseline creatinine of 1.6- 1.7], chronic hyponatremia secondary to SIADH, chronic anemia [baseline hemoglobin of 9], GERD, cervical intraepithelial neoplasm status post surgery, migraine, anxiety/mood disorder, ongoing tobacco abuse was brought to the ED with complaint of not feeling well for the last few weeks, not eating well and increasingly getting weak in the last few days, 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 Patient also noted to have cough with shortness of breath, had been complaining of abdominal discomfort but denied black or bloody stool. In the ED, her SBP was in 70s, lowest O2 noted was saturation in 80s. She is being managed for the following: Multifocal pneumonia Severe sepsis with shock in an immunocompromised patient Acute Hypoxic respiratory failure Metabolic encephalopathy Possible adrenal insufficiency: given intermittent Decadron Rx during chemotherapy. Random cortisol wnl. Pt on hydrocortisone in ICU. Patient presenting with cough and shortness of breath, had systolic blood pressure in 70s. Results of admitting CXR and CTA chest reviewed.Concerning for multifocal pneumonia Patient was admitted to ICU for vasopressor support. Patient was intubated on 02/10 due to progressive hypoxia/agitation Patient underwent bronchoscopy after intubation; thick grayish-white secretions appreciated in the trachea, daina and predominantly in bilateral lower lobe and left upper lobe. Bronchoalveolar lavage was obtained Continue hemodynamic support, mechanical ventilation as per ICU Continue on Zosyn and doxycycline On hydrocortisone due to possible relative adrenal insufficiency Follow-up on infectious workup Acute kidney injury over CKD status 4: Baseline creatinine around 1.6-1.8, admitting creatinine of 2.8. Likely ischemic ATN given septic shock, anemia. Creatinine minimally improving; Trial of Bumex as per ICU. Nephrology on board. Acute on chronic hyponatremia: Patient with chronic hyponatremia secondary to SIADH. Sodium level around 130. Admitting sodium level of 122. Sodium slowly improving, currently at 128. Acute on chronic anemia: Baseline hemoglobin around 9, admitting hemoglobin of 6.9, FOBT done in the ED was positive. Status post 2 unit PRBC, currently hemoglobin around 8.2. GI on board, continue with PPI, no plan for current intervention. Monitor H&H, transfuse for hemoglobin less than 8. Home aspirin on hold. Pt NPO. Type II NSTEMI: Patient with elevated troponin at presentation, down trended. EKG with no acute ST or T changes. Echo with EF of 60 to 65%, LV systolic function normal, no regional wall motion abnormalities of LV noted. Demand ischemia secondary to acute illness. Continue telemetry. Right ankle fracture: Right ankle x-ray with age-indeterminate fracture of proximal tip of the fifth metatarsal tubercle. Continue to follow, pain management as appropriate. Other chronic medical conditions: Continue with/resume home meds as and when able. Two lung primary malignancies ongoing chemotherapy/Tagrisso Rx: Hold Rx due to acute illness. CTAP with concern for pelvic bone metastasis, will likely need MRI as outpatient once out of acute illness. hx PVD status post stent moderate MR (TTE 2021) atrial septal aneurysm as per records DM2 on oral medications, well-controlled as of recent hemoglobin A1c of 5.02 July 2023 ongoing tobacco abuse DVT prophylaxis. SCDs re: GI bleed Full code Time spent evaluating patient, direct bedside care, chart review, placing orders, interpretation of diagnostic studies, as well as other required patient management activities is 50 minutes Please note the above document was generated using voice recognition software. It may contain grammatical, syntax or spelling errors. Any formal questions or concerns about the content, text or information contained within the body of this dictation should be directly addressed to the provider for clarification Admission and Anticipated Discharge Date Admission Date: February 10, 2024 Subjective Patient seen and examined at bedside. She is intubated, mechanically ventilated and sedated FiO2 of 45% and PEEP of 8 Review of Systems Review of Systems: Unobtainable due to reduced consciousness Physical Exam Physical Exam: Constitutional: Intubated and mechanically ventilated. Sedated Respiratory: Bilateral mechanical breath sound. Cardiovascular: S1-S2, normal murmur. Abdomen: Soft, nondistended. ly Musculoskeletal: no cyanosis or clubbing, extremities motor strength 5/5. pitting edema present Skin: no rashes, warm and dry normal turgor Neurologic: PERRLA, moves all extremities Results & Data Results & Data Vital Signs (Past 12 Hours) Vital Signs Temp Pulse Resp BP Pulse Ox O2 Del Method FiO2 02/12/24 12:00 40 02/12/24 10:20 105/50 L 02/12/24 10:15 36.2 C L 89 18 95 Mechanical Vent 02/12/24 10:12 36.2 C L 88 18 95 Mechanical Vent 02/12/24 10:10 106/50 L 02/12/24 10:00 104/51 L 02/12/24 09:51 36.2 C L 86 18 95 Mechanical Vent 02/12/24 09:50 105/46 L 02/12/24 09:35 40 02/12/24 09:30 109/54 L 02/12/24 09:20 104/52 L 02/12/24 09:06 36.2 C L 81 18 96 Mechanical Vent 02/12/24 09:00 86/42 L 02/12/24 09:00 86/42 L 02/12/24 08:57 74/52 L 02/12/24 08:42 36.2 C L 81 18 95 Mechanical Vent 02/12/24 08:39 36.2 C L 81 18 94 Mechanical Vent 02/12/24 08:30 98/48 L 02/12/24 08:24 36.2 C L 83 24 94 02/12/24 08:18 Mechanical Vent 02/12/24 08:15 36.2 C L 94 H 24 96 02/12/24 08:15 114/55 L 02/12/24 08:00 36.2 C L 96 H 24 92 02/12/24 08:00 116/60 02/12/24 08:00 116/60 02/12/24 08:00 116/60 02/12/24 08:00 88 02/12/24 08:00 45 02/12/24 07:43 94 H 24 95 45 02/12/24 07:36 36.1 C L 96 H 18 88 L Mechanical Vent 02/12/24 07:30 130/66 02/12/24 07:30 130/66 02/12/24 07:15 127/64 02/12/24 07:09 36.1 C L 88 24 97 Mechanical Vent 02/12/24 07:00 121/63 02/12/24 07:00 121/63 02/12/24 07:00 36.1 C L 85 24 96 Mechanical Vent 02/12/24 04:00 55 02/12/24 02:30 85 24 97 45
[2024-02-12] MEDS: PEPTAMEN 1.5 CAL 1,000 ML BAG OG SCH (15:26)
[2024-02-12 16:17] LABS: BUN Creatinine Ratio 16.2 (10-20); Calcium 7.7 mg/dl (8.6-10.3); Creatinine Clr Calc Pharmacy 18.3 ml/min
[2024-02-12 16:44] LABS: Potassium 3.5 mmol/L (3.5-5.1)
[2024-02-12] MEDS: BUMETANIDE 2 MG in SYRINGE 0 ML IV ONE (20:24)
[2024-02-12] MEDS: fentaNYL BOLUS from BAG IV PRN (20:30)
[2024-02-12] MEDS: PROPOFOL BOLUS FROM BAG IV PRN (21:00)
[2024-02-13 04:18] LABS: iSTAT Allen Test Pass; iSTAT Art Bld Gas pCO2 Correct 36 mmHg (35-46); iSTAT Art Bld Gas pH Corrected 7.414 (7.35-7.45); iSTAT Arterial Blood Gas HCO3 23 meg/L (19-24); iSTAT Arterial Blood Gas pCO2 36 mmHg (35-46); iSTAT Arterial Blood Gas pH 7.42 (7.35-7.45); iSTAT Arterial Blood Gas pO2 67 mmHg (80-95); iSTAT Arterial Blood Gas pO2 C 67; iSTAT Carbon Dioxide 24 mmol/L (24-31); iSTAT FiO2 40 %; iSTAT Hematocrit 23 % (37-47); iSTAT Hemoglobin 7.8 g/dl (12.0-16.0); iSTAT Potassium 3.2 mmol/L (3.3-5.0); iSTAT Sample Type Arterial; iSTAT Site L Radial; iSTAT Sodium 126 mmol/L (135-144); iSTAT SpO2 93
[2024-02-13 06:40] LABS: Albumin Globulin Ratio 0.9 (0.9-2); Albumin Level 2.5 gm/dl (3.4-5.0); BUN Creatinine Ratio 17.5 (10-20); Bilirubin,Total 0.3 mg/dl (0.2-1.0); Calcium 7.2 mg/dl (8.6-10.3); Creatinine Clr Calc Pharmacy 18.3 ml/min; Globulin 2.7 gm/dl (2.5-4.0); Magnesium 2.2 mg/dl (1.7-2.4); Phosphorus 4.1 mg/dl (2.5-4.9); Potassium 3.3 mmol/L (3.5-5.1); Total Protein 5.2 gm/dl (6.0-8.3)
[2024-02-13 06:49] LABS: Basophils # (auto) 0.02 K/uL (0.00-0.20); Basophils % (auto) 0.2 %; Eosinophils # (auto) 0.02 K/uL (0.00-0.50); Eosinophils % (auto) 0.2 %; Hematocrit (blood only) 23.2 % (37.0-47.0); Immature Granulocytes # (auto) 0.28 K/uL (0.01-0.20); Immature Granulocytes % (auto) 2.7 %; Lymphocytes # (auto) 0.76 K/uL (1.20-3.40); Lymphocytes % (auto) 7.3 %; Mean Corpuscular Hemoglobin 29.1 pg (25.0-34.0); Mean Corpuscular Hgb Conc 34.5 g/dL (32.0-36.0); Mean Corpuscular Volume 84.4 fL (80.0-100.0); Mean Platelet Volume 10.1 fL (9.4-12.4); Monocytes # (auto) 0.38 K/uL (0.11-0.59); Monocytes % (auto) 3.6 %; Neutrophils # (auto) 9.01 K/uL (1.40-6.50); Platelet Count 199 K/uL (130-400); RDW Coefficient of Variation 18.1 % (11.5-14.5); RDW Standard Deviation 55.9 fL (36.4-46.3); Red Blood Count 2.75 M/uL (4.20-5.40); White Blood Count 10.47 K/ul (4.8-10.8)
--- NOTE | 2024-02-13 07:52 | XRay Report ---
EXAM: XR chest 1V portable CLINICAL HISTORY: F/U RESP FAILURE KAB ROGER TECHNIQUE: X-ray image of the chest was obtained in 1 view: AP projection. COMPARISON: X-ray dated 02/12/2024. FINDINGS: Pulmonary Parenchyma: Interval regressive course of patchy air space opacities and reticular thickening in left lung lower zone, with better aeration seen in today's study. Unchanged right lung lower zone inhomogeneous opacities. Prominent bilateral parahilar markings. Bilateral CP angles are obscured suggesting pleural effusion. Heart and Mediastinum: Heart size and shape are normal. No mediastinal widening or masses. No hilar or mediastinal lymphadenopathy. Bony Thorax: Bilateral shoulder replacement prosthesis. Mild spondylotic changes in thoracic spine. Bony thorax appears intact without fractures or deformities. Soft Tissues: Soft tissues overlying the chest wall are unremarkable. Right CVL with tip in SVC. Due to significant rotation at the time of exposure Exact position of ETT cannot be measured Normal position of NG tube. IMPRESSION: 1. Interval regressive course of patchy air space opacities and reticular thickening in left lung lower zone, with better aeration seen in today's study. 2. Unchanged right lung lower zone inhomogeneous opacities. 3. Right CVL with tip in SVC. 4. Due to significant rotation at the time of exposure, exact position of ETT cannot be measured. 5. Normal position of NG tube. Electronically signed by Ragini Solis 02-13-2024 07:51 AM
--- NOTE | 2024-02-13 08:01 | Pulmonology Progress Note ---
Date of Service February 13, 2024 Assessment & Plan (1) Septic shock: (2) Hyponatremia: (3) Peripheral vascular disease: (4) Diabetes mellitus, type 2: (5) HTN (hypertension): (6) COPD (chronic obstructive pulmonary disease): (7) Lung cancer: (8) Anxiety: (9) Respiratory failure, acute and chronic: Respiratory failure complication: hypoxia Qualified Code(s): J 96.21 - Acute and chronic respiratory failure with hypoxia (10) [place] (acute kidney injury): Plan Reason Critically Ill: 73-year-old female with past medical history significant for COPD, lung cancer (undergoing treatment with chemotherapy), anxiety and depression, peripheral vascular disease, DM type II, HLD, HTN presents to the ICU with septic shock likely from pulmonary source, currently requiring vasopressor support with Levophed drip. Neuro - [facility] ICU: Negative Cardiac - Shock Likely septic given the multilobar pneumonia Random cortisol will be on the lower side given patient is on chronic prednisone - Patient with elevated troponin, downtrending. - Titrate Levophed to maintain MAP greater than 65 Patient started on hydrocortisone 02/11/2024 --Elevated troponin Likely type II PA EKG changes No chest pain and no ST elevation on EKG. Suspect demand ischemia Patient takes prednisone on a daily basis, will change it to Solu-Medrol while in the hospital Respiratory - -- Vent dependent respiratory failure with acute on chronic hypoxic and hypercapnic respiratory failure Multifactorial Multilobar pneumonia -- COPD and emphysema - Scheduled nebs, DuoNeb as needed --History of squamous cell carcinoma of the lung On osimertinib CTA chest 02/10/2024 personally reviewed: Patchy opacities appreciated in the left upper lobe with some cavitary lesion Dense consolidative process in the left lower lobe with loculated left-sided pleural effusion Cavitary lesion in the right lower lobe perifissural, right upper lobe linear nodular opacity 3.1 cm x 5 cm Centrilobular and paraseptal emphysema appreciated bilaterally Moderate hiatal hernia Significant mediastinal lymphadenopathy GI - Probable GI bleed Patient with positive Hemoccult, no significant melena per report - GI consulted. They recommend conservative management for the time being RENAL/LYTES - Hyponatremiawith history of SIADH, etiology is most likely Tagrisso Serum osmolality 261, urine osmolality, 375, urine sodium 12 Patient with hypoosmolar hyponatremia with sodium of 122 on admission. -Nephrology on board [place] On CKD Likely prerenal in the setting of hypotension. Baseline creatinine around 1.5 - Avoid nephrotoxins renally adjust medications - Maintain MAP greater than 65 to ensure renal perfusion - Strict I's and O's ENDO - DM type II Continue with ICU hyperglycemic protocol HEME - Acute on chronic anemia S/p 1 unit PRBC on 02/10/2024. Has received multiple transfusions in the past as well Follow-up iron studies Monitor H&H ID - Sepsislikely pulmonary source with left lower lobe consolidation noted on CTA chest, and immunocompromise patient receiving chemotherapy for lung cancer. - BioFire negative, nasal MRSA negative - Urinalysis unremarkable - Follow blood and sputum culture --Prophylaxis VTE: IPC GI: Pantoprazole Lines: Right-sided Port-A-Cath, peripheral Diet: Tube feeds Plan: In/out: +306, urine output 872, +5 L since coming to the hospital ABG 7.42/36/67 on 40%. I went down on the respiratory rate to 15, decreased FiO2 35% Chest x-ray from today shows improvement in opacities on the left side, right lower lobe consolidative process still persists Patient did have some increased output to the Bumex given yesterday but her urine output has gone down in the morning. Creatinine seems to have plateaued. I will discuss with nephrology to see if another trial of Bumex could be thought of later today Will give 40 mg of potassium No acute indication for dialysis right now. Will see what the course she is going to be but she is not out of danger for dialysis in the near future Patient's Ryne [phone] was updated regarding patient's critical condition I have personally spent 37 minutes of critical care time in the direct management of this patient. This is a life/limb threatening event. This includes time spent evaluating patient, direct bedside care, chart review, placing orders, interpretation of diagnostic studies, discussion with consultants, patient, and family members, as well as other required patient management activities. This time is exclusive of all separately billable procedures, and teaching time and separate from and in addition to any other critical care service time. Please note the above document was generated using voice recognition software. It may contain grammatical, syntax or spelling errors. Admission and Anticipated Discharge Date Admission Date: February 10, 2024 Subjective Patient seen and examined at bedside. No acute distress, no adverse events overnight She did get Bumex overnight and made some urine. On 100 of fentanyl and 35 propofol at the time of examination Was breathing with the vent Saturation was 95-96% on 40% FiO2 Has been off Levophed. Afebrile Review of Systems 2 Review of Systems: All systems reviewed & are unremarkable except as noted in Subjective Physical Exam 2 Physical Exam: Constitutional: No acute distress HEENT: PERRLA Respiratory system: Decreased air entry bilaterally, no wheeze, rhonchi, positive crackles bilaterally CVS: S1-S2 positive, no murmurs or gallops Abdomen: Soft, nontender, nondistended, positive bowel sounds x4 Extremities: +2 pulses bilaterally radialis/ dorsalis pedis, no cyanosis, positive pitting edema bilateral lower extremity Neuro: RASS -2, does open her eyes to her name, does not follow commands, moving all extremities spontaneously Psych: Unable to assess G/U: Positive [place] Skin: no rashes, warm and dry Lymphatic: no cervical or axillary lymphadenopathy Results & Data Results & Data Vital Signs (Past 12 Hours) Vital Signs Temp Pulse Resp BP Pulse Ox O2 Del Method FiO2 02/13/24 07:44 84 18 96 40 02/13/24 06:30 36.9 C 91 H 18 144/79 H 95 Mechanical Vent 40 02/13/24 06:06 36.9 C 94 H 18 147/80 H 94 Mechanical Vent 40 02/13/24 05:30 36.9 C 96 H 18 138/75 96 Mechanical Vent 40 02/13/24 05:18 36.9 C 92 H 18 122/63 97 Mechanical Vent 40 02/13/24 04:30 37.1 C 92 H 18 97/52 L 97 Mechanical Vent 40 02/13/24 04:30 37.1 C 78 18 97/52 L 96 Mechanical Vent 40 02/13/24 04:00 37.1 C 87 18 110/51 L 94 Mechanical Vent 40 02/13/24 04:00 40 02/13/24 03:38 81 18 97 40 02/13/24 03:30 36.9 C 90 18 124/60 94 Mechanical Vent 40 02/13/24 03:00 36.9 C 89 18 119/55 L 94 Mechanical Vent 40 02/13/24 03:00 36.8 C 88 18 119/55 L 94 Mechanical Vent 40 02/13/24 02:30 36.7 C 88 18 120/54 L 94 Mechanical Vent 40 02/13/24 02:15 36.7 C 88 18 130/61 95 Mechanical Vent 40 02/13/24 01:30 36.6 C 81 18 128/61 98 Mechanical Vent 40 02/13/24 01:00 36.5 C 71 18 100/50 L 97 Mechanical Vent 40 02/13/24 00:30 36.4 C L 71 18 101/51 L 97 Mechanical Vent 40 02/13/24 00:00 36.4 C L 73 18 102/53 L 97 Mechanical Vent 40 02/13/24 00:00 40 02/12/24 23:30 36.3 C L 74 18 100/51 L 97 Mechanical Vent 40 02/12/24 23:29 74 18 100 40 02/12/24 23:00 36.3 C L 74 18 108/59 L 97 Mechanical Vent 40 02/12/24 22:30 36.3 C L 78 18 117/61 97 Mechanical Vent 40 02/12/24 22:00 36.3 C L 82 18 135/69 97 Mechanical Vent 40 02/12/24 21:30 36.5 C 81 18 129/66 96 Mechanical Vent 40 02/12/24 21:01 36.6 C 92 H 18 130/73 95 Mechanical Vent 40 02/12/24 20:30 36.9 C 85 18 105/51 L 96 Mechanical Vent 40 Laboratory Results 02/13/24 05:00 02/13/24 05:00 PG Care Time/CCT Total # of Minutes Spent Total Time Spent with Patient: Total time spent is greater than 50% in coordination of care (as documented) at patient's floor/unit and/or counseling patient: Coding Level of Care Code 02628 CRITICAL CARE 1ST 30-74M Diagnoses Septic shock A41.9; R65.21 Hyponatremia E87.1 Peripheral vascular disease I73.9 Diabetes mellitus, type 2 E11.9 HTN (hypertension) I10 COPD (chronic obstructive pulmonary disease) J44.9 Lung cancer C34.90 Anxiety F41.9 Respiratory failure, acute and chronic J96.21 Respiratory failure complication: hypoxia [place] (acute kidney injury) N17.9
[2024-02-13] MEDS: POTASSIUM CHLORIDE 20 MEQ/15 ML UDC PO STA (08:17)
--- NOTE | 2024-02-13 08:23 | Hospitalist Progress Note ---
Date of Service February 13, 2024 Assessment & Plan (1) Encephalopathy: Plan: 73-year-old lady with PMH of PVD s/p surgery, moderate MR [TTE 2021], atrial septal aneurysm, lung adenocarcinoma on Tagrisso, squamous cell carcinoma of the lung on chemotherapy, COPD, DM2 on oral meds, CKD [baseline creatinine of 1.6- 1.7], chronic hyponatremia secondary to SIADH, chronic anemia [baseline hemoglobin of 9], GERD, cervical intraepithelial neoplasm status post surgery, migraine, anxiety/mood disorder, ongoing tobacco abuse was brought to the ED with complaint of not feeling well for the last few weeks, not eating well and increasingly getting weak in the last few days, patient fell at home from being dizzy about 3 days ago [employer] and has been sleeping all day and not urinating much. Patient also noted to have cough with shortness of breath, had been complaining of abdominal discomfort but denied black or bloody stool. In the ED, her SBP was in 70s, lowest O2 noted was saturation in 80s. She is being managed for the following: Multifocal pneumonia Severe sepsis with shock in an immunocompromised patient Acute Hypoxic respiratory failure Metabolic encephalopathy Possible adrenal insufficiency: given intermittent Decadron Rx during chemotherapy. Random cortisol wnl. Pt on hydrocortisone in ICU. Patient presenting with cough and shortness of breath, had systolic blood pressure in 70s. Results of admitting CXR and CTA chest reviewed.Concerning for multifocal pneumonia Patient was admitted to ICU for vasopressor support. Patient was intubated on 02/10 due to progressive hypoxia/agitation Patient underwent bronchoscopy after intubation; thick grayish-white secretions appreciated in the trachea, daina and predominantly in bilateral lower lobe and left upper lobe. Bronchoalveolar lavage was obtained Continue hemodynamic support, mechanical ventilation as per ICU Continue on Zosyn and doxycycline On hydrocortisone due to possible relative adrenal insufficiency Blood culture negative till date Acute kidney injury over CKD status 4: Baseline creatinine around 1.6-1.8, admitting creatinine of 2.8. Likely ischemic ATN given septic shock, anemia. Creatinine minimally improving; Trial of Bumex as per ICU. Nephrology on board. Acute on chronic hyponatremia: Patient with chronic hyponatremia secondary to SIADH. Sodium level around 130. Admitting sodium level of 122. Sodium slowly improving, currently at 130. Acute on chronic anemia: Baseline hemoglobin around 9, admitting hemoglobin of 6.9, FOBT done in the ED was positive. Status post 2 unit PRBC, currently hemoglobin around 8.2. GI on board, continue with PPI, no plan for current intervention. Monitor H&H, transfuse for hemoglobin less than 8. Home aspirin on hold. Pt NPO. Type II NSTEMI: Patient with elevated troponin at presentation, down trended. EKG with no acute ST or T changes. Echo with EF of 60 to 65%, LV systolic function normal, no regional wall motion abnormalities of LV noted. Demand ischemia secondary to acute illness. Continue telemetry. Right ankle fracture: Right ankle x-ray with age-indeterminate fracture of proximal tip of the fifth metatarsal tubercle. Continue to follow, pain management as appropriate. Other chronic medical conditions: Continue with/resume home meds as and when able. Two lung primary malignancies ongoing chemotherapy/Tagrisso Rx: Hold Rx due to acute illness. CTAP with concern for pelvic bone metastasis, will likely need MRI as outpatient once out of acute illness. hx PVD status post stent moderate MR (TTE 2021) atrial septal aneurysm as per records DM2 on oral medications, well-controlled as of recent hemoglobin A1c of 5.02 July 2023 ongoing tobacco abuse DVT prophylaxis. SCDs re: GI bleed Full code Time spent evaluating patient, direct bedside care, chart review, placing orders, interpretation of diagnostic studies, as well as other required patient management activities is 50 minutes Please note the above document was generated using voice recognition software. It may contain grammatical, syntax or spelling errors. Any formal questions or concerns about the content, text or information contained within the body of this dictation should be directly addressed to the provider for clarification Admission and Anticipated Discharge Date Admission Date: February 10, 2024 Subjective Patient continues to be mechanically ventilated and sedated off vasopressors. sedated with fentanyl and profopol. Review of Systems Review of Systems: Unobtainable due to reduced consciousness Physical Exam Physical Exam: Constitutional: Intubated and mechanically ventilated. Sedated Respiratory: Bilateral mechanical breath sound. Cardiovascular: S1-S2, normal murmur. Abdomen: Soft, nondistended. Musculoskeletal: no cyanosis or clubbing, extremities motor strength 5/5. pitting edema present Skin: no rashes, warm and dry normal turgor Neurologic: PERRLA, moves all extremities Results & Data Results & Data Vital Signs (Past 12 Hours) Vital Signs Temp Pulse Resp BP Pulse Ox O2 Del Method FiO2 02/13/24 07:44 84 18 96 40 02/13/24 06:30 36.9 C 91 H 18 144/79 H 95 Mechanical Vent 40 02/13/24 06:06 36.9 C 94 H 18 147/80 H 94 Mechanical Vent 40 02/13/24 05:30 36.9 C 96 H 18 138/75 96 Mechanical Vent 40 02/13/24 05:18 36.9 C 92 H 18 122/63 97 Mechanical Vent 40 02/13/24 04:30 37.1 C 92 H 18 97/52 L 97 Mechanical Vent 40 02/13/24 04:30 37.1 C 78 18 97/52 L 96 Mechanical Vent 40 02/13/24 04:00 37.1 C 87 18 110/51 L 94 Mechanical Vent 40 02/13/24 04:00 40 02/13/24 03:38 81 18 97 40 02/13/24 03:30 36.9 C 90 18 124/60 94 Mechanical Vent 40 02/13/24 03:00 36.9 C 89 18 119/55 L 94 Mechanical Vent 40 02/13/24 03:00 36.8 C 88 18 119/55 L 94 Mechanical Vent 40 02/13/24 02:30 36.7 C 88 18 120/54 L 94 Mechanical Vent 40 02/13/24 02:15 36.7 C 88 18 130/61 95 Mechanical Vent 40 02/13/24 01:30 36.6 C 81 18 128/61 98 Mechanical Vent 40 02/13/24 01:00 36.5 C 71 18 100/50 L 97 Mechanical Vent 40 02/13/24 00:30 36.4 C L 71 18 101/51 L 97 Mechanical Vent 40 02/13/24 00:00 36.4 C L 73 18 102/53 L 97 Mechanical Vent 40 02/13/24 00:00 40 02/12/24 23:30 36.3 C L 74 18 100/51 L 97 Mechanical Vent 40 02/12/24 23:29 74 18 100 40 02/12/24 23:00 36.3 C L 74 18 108/59 L 97 Mechanical Vent 40 02/12/24 22:30 36.3 C L 78 18 117/61 97 Mechanical Vent 40 02/12/24 22:00 36.3 C L 82 18 135/69 97 Mechanical Vent 40 02/12/24 21:30 36.5 C 81 18 129/66 96 Mechanical Vent 40 02/12/24 21:01 36.6 C 92 H 18 130/73 95 Mechanical Vent 40 02/12/24 20:30 36.9 C 85 18 105/51 L 96 Mechanical Vent 40
--- NOTE | 2024-02-13 12:19 | Nephrology Progress Note ---
Date of Service February 13, 2024 Assessment & Plan (1) Acute kidney injury (nontraumatic): Plan: now no longer oliguric stage 3 (d/t UOP) [place] on CKD 4 (baseline creatinine 1.6- 2.0 in 2023 though more 1.6-1.7 w/ stable weight December). presented with creatinine 2.8 > 2.6 > 2.7> 2.5 this AM. s/p IV contrast for CTA chest 02/09. reviewed OP records > no prior bicarb drops or e/o metabolic acidosis [employer]. she has improving AG now and no acidemia; doubt role for Farxiga related ketoacidosis. she is 5.9 L positive so far as of this am presume ischemic ATN given hypotension, anemia and IV contrast. today phos, mag acceptable; improving renal failure, septic shock -further diuretics as indicated by critical care > suggest another 2 mg this evening and standing K -no need for IVF -continue pressor to keep map > 65 -daily bmp at least ->>>>doubt at this point that she will need urgent dialysis this admission, assuming other things stable; consent obtained from 02/10 and on chart K already appropriately repleted today (2) Hyponatremia: Plan: improving and no longer severe but moderate hyponatremia. presented w/ sNa 122 and dropped to 118 by 0100 02/10. 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 -sodium 130 today -goal sNa is no more than 136 by tomorrow am -monitor at least q12 hr -no specific therapy at this time other than minimizing further volume overload and seeing if she can tolerate diuretics / use diuretics as needed to wean vent (3) CKD (chronic kidney disease) stage 4, GFR 15-29 ml/min: Plan: CKD 4 though past month w/ some improvement in creatinine (more 1.6-1.7) and wt maintained. follows w/ Dr Ellis; has also seen Dr Chopra in the past (4) Hypomagnesemia: Plan: mild; on platin based therapy >> monitor daily; mag 2.2 today (5) Respiratory failure, acute and chronic: Plan: per pulmonary; failed bipap; multifactorial from copd, emphysema, multilobar pneumonia, lung ca x 2 types > f/u bronch results -5.9L + and no longer oliguric > cont diuretics as they support weaning vent (6) Lung cancer: Plan: on VEGF/TK inhibitor AND taxol / carboplatin/ ketruda and on intermittent decadron (last tx 01/22) (7) Pneumonia: Plan: severe; multilobar; cavitary lesions on imaging RLL, JAKE zosyn/doxy Admission and Anticipated Discharge Date Admission Date: February 10, 2024 Subjective had diuretic challenge yesterday >> uop is higher/ >800 yesterday and today; on TF now and FWF 30ML q4h; bronch cxs NGTD; seen on am rounds today Review of Systems 2 Review of Systems: All systems reviewed & are unremarkable except as noted in Subjective Physical Exam 2 Constitutional: well developed, + frail appearing and + mechanically ventilated; no acute distress ENMT: Mouth: + dry oral mucous membranes Respiratory: normal respiratory effort (on vent) Auscultation: + diminished lung sounds Cardiovascular: Rate/Rhythm: regular rate and regular rhythm Extremities: + edema (some dependent) Gastrointestinal (Abdomen): Inspection/Auscultation: normal bowel sounds P ercussion/Palpation: abdomen soft; abdomen nontender Musculoskeletal: Extremities: strength 5/5 throughout Skin: no rashes, warm and dry Results & Data Vital Signs (Past 12 Hours) Vital Signs Temp Pulse Resp BP Pulse Ox O2 Del Method FiO2 02/13/24 12:00 119/60 02/13/24 12:00 36.5 C 76 15 95 02/13/24 12:00 30 02/13/24 11:30 125/67 02/13/24 11:30 125/67 02/13/24 11:30 36.5 C 77 15 96 02/13/24 11:15 36.4 C L 77 15 96 02/13/24 11:00 126/67 02/13/24 10:00 131/63 02/13/24 10:00 36.3 C L 77 15 95 02/13/24 09:33 30 02/13/24 09:09 36.4 C L 75 15 95 02/13/24 09:00 117/58 L 02/13/24 09:00 Mechanical Vent 35 02/13/24 08:46 110/55 L 11/21/24 08:30 86/48 L 35 02/13/24 08:00 35 02/13/24 08:00 92 H 02/13/24 07:44 84 18 96 40 02/13/24 07:00 125/69 02/13/24 07:00 36.8 C 92 H 18 95 Mechanical Vent 40 02/13/24 06:30 36.9 C 91 H 18 144/79 H 95 Mechanical Vent 40 02/13/24 06:06 36.9 C 94 H 18 147/80 H 94 Mechanical Vent 40 02/13/24 05:30 36.9 C 96 H 18 138/75 96 Mechanical Vent 40 02/13/24 05:18 36.9 C 92 H 18 122/63 97 Mechanical Vent 40 02/13/24 04:30 37.1 C 92 H 18 97/52 L 97 Mechanical Vent 40 02/13/24 04:30 37.1 C 78 18 97/52 L 96 Mechanical Vent 40 02/13/24 04:00 37.1 C 87 18 110/51 L 94 Mechanical Vent 40 02/13/24 04:00 40 02/13/24 03:38 81 18 97 40 02/13/24 03:30 36.9 C 90 18 124/60 94 Mechanical Vent 40 02/13/24 03:00 36.9 C 89 18 119/55 L 94 Mechanical Vent 40 02/13/24 03:00 36.8 C 88 18 119/55 L 94 Mechanical Vent 40 02/13/24 02:30 36.7 C 88 18 120/54 L 94 Mechanical Vent 40 02/13/24 02:15 36.7 C 88 18 130/61 95 Mechanical Vent 40 02/13/24 01:30 36.6 C 81 18 128/61 98 Mechanical Vent 40 02/13/24 01:00 36.5 C 71 18 100/50 L 97 Mechanical Vent 40 02/13/24 00:30 36.4 C L 71 18 101/51 L 97 Mechanical Vent 40 Laboratory Results 02/13/24 05:00 02/13/24 05:00 (5) Respiratory failure, acute and chronic Respiratory failure complication: hypoxia Qualified Code(s): J96.21 - Acute and chronic respiratory failure with hypoxia (6) Lung cancer Laterality: unspecified laterality Lung location: unspecified part of lung Qualified Code(s): C34.90 - Malignant neoplasm of unspecified part of unspecified bronchus or lung (7) Pneumonia Laterality: left Lung location: lower lobe of lung Pneumonia type: due to unspecified organism Qualified Code(s): J18.9 - Pneumonia, unspecified organism
[2024-02-13] MEDS: HYDROCORTISONE SOD 50 MG in SYRINGE 0 ML IV SCH (13:54)
[2024-02-13] MEDS: BUMETANIDE 2 MG in SYRINGE 0 ML IV ONE (16:09)
[2024-02-13] MEDS: VENLAFAXINE HCL 37.5 MG TAB PO SCH (19:59)
[2024-02-14 05:21] LABS: Red Blood Count 3.01 M/uL (4.20-5.40); White Blood Count 10.49 K/ul (4.8-10.8)
[2024-02-14 05:22] LABS: Basophils # (auto) 0.02 K/uL (0.00-0.20); Basophils % (auto) 0.2 %; Eosinophils # (auto) 0.04 K/uL (0.00-0.50); Eosinophils % (auto) 0.4 %; Hematocrit (blood only) 25.7 % (37.0-47.0); Hemoglobin 8.6 g/dl (12.0-16.0); Immature Granulocytes # (auto) 0.28 K/uL (0.01-0.20); Immature Granulocytes % (auto) 2.7 %; Lymphocytes # (auto) 0.93 K/uL (1.20-3.40); Lymphocytes % (auto) 8.9 %; Mean Corpuscular Hemoglobin 28.6 pg (25.0-34.0); Mean Corpuscular Hgb Conc 33.5 g/dL (32.0-36.0); Mean Corpuscular Volume 85.4 fL (80.0-100.0); Mean Platelet Volume 9.8 fL (9.4-12.4); Monocytes # (auto) 0.49 K/uL (0.11-0.59); Monocytes % (auto) 4.7 %; Neutrophils # (auto) 8.73 K/uL (1.40-6.50); Neutrophils % (auto) 83.1 %; Nucleated RBC # (auto) 0.03 K/uL (0.00-0.12); Nucleated RBC % (auto) 0.3 %; Platelet Count 192 K/uL (130-400); RDW Coefficient of Variation 18.1 % (11.5-14.5); RDW Standard Deviation 56.5 fL (36.4-46.3)
[2024-02-14 06:09] LABS: BUN Creatinine Ratio 20.6 (10-20); Calcium 7.6 mg/dl (8.6-10.3); Creatinine Clr Calc Pharmacy 18.5 ml/min; Phosphorus 3.8 mg/dl (2.5-4.9); Potassium 3.8 mmol/L (3.5-5.1)
--- NOTE | 2024-02-14 08:40 | Critical Care Progress Note ---
Date of Service February 14, 2024 Assessment & Plan (1) Septic shock: (2) Hyponatremia: (3) Peripheral vascular disease: (4) Diabetes mellitus, type 2: (5) HTN (hypertension): (6) COPD (chronic obstructive pulmonary disease): (7) Lung cancer: (8) Anxiety: (9) Respiratory failure, acute and chronic: (10) [place] (acute kidney injury): Plan Reason Critically Ill: 73-year-old female with past medical history significant for COPD, lung cancer (undergoing treatment with chemotherapy), anxiety and depression, peripheral vascular disease, DM type II, HLD, HTN presents to the ICU with septic shock likely from pulmonary source, currently requiring vasopressor support with Levophed drip. Neuro - [facility] ICU: Negative Cardiac - Shock Likely septic given the multilobar pneumonia Random cortisol will be on the lower side given patient is on chronic prednisone - Patient with elevated troponin, downtrending. - Titrate Levophed to maintain MAP greater than 65 Patient started on hydrocortisone 02/11/2024 --Elevated troponin Likely type II [place] EKG changes No chest pain and no ST elevation on EKG. Suspect demand ischemia Patient takes prednisone on a daily basis, will change it to Solu-Medrol while in the hospital Respiratory - -- Vent dependent respiratory failure with acute on chronic hypoxic and hypercapnic respiratory failure Multifactorial Multilobar pneumonia -- COPD and emphysema - Scheduled nebs, DuoNeb as needed --History of squamous cell carcinoma of the lung On osimertinib CTA chest 02/10/2024 personally reviewed: Patchy opacities appreciated in the left upper lobe with some cavitary lesion Dense consolidative process in the left lower lobe with loculated left-sided pleural effusion Cavitary lesion in the right lower lobe perifissural, right upper lobe linear nodular opacity 3.1 cm x 5 cm Centrilobular and paraseptal emphysema appreciated bilaterally Moderate hiatal hernia Significant mediastinal lymphadenopathy GI - Probable GI bleed Patient with positive Hemoccult, no significant melena per report - GI consulted. They recommend conservative management for the time being RENAL/LYTES - Hyponatremiawith history of SIADH, etiology is most likely Tagrisso Serum osmolality 261, urine osmolality, 375, urine sodium 12 Patient with hypoosmolar hyponatremia with sodium of 122 on admission. -Nephrology on board [place] On CKD Likely prerenal in the setting of hypotension. Baseline creatinine around 1.5 - Avoid nephrotoxins renally adjust medications - Maintain MAP greater than 65 to ensure renal perfusion - Strict I's and O's ENDO - DM type II Continue with ICU hyperglycemic protocol HEME - Acute on chronic anemia S/p 1 unit PRBC on 02/10/2024. Has received multiple transfusions in the past as well Follow-up iron studies Monitor H&H ID - Sepsislikely pulmonary source with left lower lobe consolidation noted on CTA chest, and immunocompromise patient receiving chemotherapy for lung cancer. - BioFire negative, nasal MRSA negative - Urinalysis unremarkable - Follow blood and sputum culture --Prophylaxis VTE: IPC GI: Pantoprazole Lines: Right-sided Port-A-Cath, peripheral Diet: Tube feeds Plan: In/out: Positive 665, urine output 825, +6.4 L since coming to the hospital Trial of extubation today Patient did respond well to Bumex yesterday. Will give another dose of Bumex around noon 2 mg. Continue with antibiotics Continue with tapering dose of hydrocortisone No acute indication for dialysis right now. Will see what the course she is going to be but she is not out of danger for dialysis in the near future Patient's Ryne [phone] was updated regarding patient's critical condition I have personally spent 35 minutes of critical care time in the direct management of this patient. This is a life/limb threatening event. This includes time spent evaluating patient, direct bedside care, chart review, placing orders, interpretation of diagnostic studies, discussion with consultants, patient, and family members, as well as other required patient management activities. This time is exclusive of all separately billable procedures, and teaching time and separate from and in addition to any other critical care service time. Please note the above document was generated using voice recognition software. It may contain grammatical, syntax or spelling errors. Admission and Anticipated Discharge Date Admission Date: February 10, 2024 Subjective Patient seen and examined at bedside. No acute distress, no adverse events overnight He was on propofol 25, fentanyl 75 the time of examination She was RASS -1, answering questions appropriately Denied any headache, no chest pain, no abdominal pain Was moving all extremities to command Review of Systems 2 Review of Systems: All systems reviewed & are unremarkable except as noted in Subjective Physical Exam 2 Physical Exam: Constitutional: No acute distress HEENT: PERRLA, EOMI Respiratory system: Decreased air entry bilaterally, no wheeze, rhonchi, positive crackles bilaterally CVS: S1-S2 positive, no murmurs or gallops Abdomen: Soft, nontender, nondistended, positive bowel sounds x4 Extremities: +2 pulses bilaterally radialis/ dorsalis pedis, no cyanosis, positive pitting edema bilateral lower extremity Neuro: RASS -1, answering questions appropriately, moving all extremities on command Psych: Normal mood and affect G/U: Positive [place] Skin: no rashes, warm and dry Lymphatic: no cervical or axillary lymphadenopathy Results & Data Results & Data Vital Signs (Past 12 Hours) Vital Signs Temp Pulse Resp BP Pulse Ox FiO2 02/14/24 06:39 36.7 C 81 15 122/68 95 02/14/24 06:21 36.8 C 82 15 95 02/14/24 05:45 36.9 C 87 17 95 02/14/24 05:30 123/68 02/14/24 05:21 37.1 C 95 H 14 96 02/14/24 05:00 120/70 02/14/24 05:00 120/70 02/14/24 05:00 37.1 C 107 H 16 94 02/14/24 04:42 37.1 C 89 15 95 02/14/24 04:30 158/75 H 02/14/24 04:30 158/75 H 02/14/24 04:18 37.0 C 90 14 96 02/14/24 04:00 126/68 02/14/24 04:00 30 02/14/24 03:48 37.1 C 89 14 95 02/14/24 03:45 37.1 C 87 15 95 02/14/24 03:35 89 15 95 30 02/14/24 03:03 37.0 C 88 14 126/66 95 02/14/24 02:48 37.1 C 86 15 95 02/14/24 02:30 37.1 C 85 15 121/60 95 02/14/24 02:24 37.1 C 86 16 95 02/14/24 02:00 114/62 02/14/24 01:57 37.3 C 85 15 100 02/14/24 01:36 37.4 C 91 H 14 93 02/14/24 01:30 129/67 11/22/24 01:06 37.5 C 90 14 92 02/14/24 01:00 37.5 C 92 H 15 98/71 L 92 02/14/24 00:30 37.5 C 90 15 99/72 L 93 02/14/24 00:00 37.5 C 90 14 131/60 94 02/14/24 00:00 90 02/14/24 00:00 30 02/13/24 23:42 37.5 C 90 15 93 02/13/24 23:30 105/60 02/13/24 23:21 37.5 C 91 H 15 93 02/13/24 23:06 96 H 17 93 30 02/13/24 23:00 37.5 C 92 H 15 116/66 94 02/13/24 22:33 37.4 C 96 H 14 131/80 93 02/13/24 22:24 37.4 C 100 H 14 93 02/13/24 22:00 37.3 C 95 H 14 123/78 93 02/13/24 21:39 37.3 C 95 H 15 94 02/13/24 21:30 133/69 02/13/24 21:27 37.3 C 96 H 16 94 02/13/24 21:24 37.3 C 94 H 14 94 02/13/24 21:00 137/65 02/13/24 20:51 37.2 C 94 H 15 94 Laboratory Results 02/14/24 04:40 02/14/24 04:34 Coding Level of Care Code 55452 CRITICAL CARE 1ST 30-74M Diagnoses Septic shock A41.9; R65.21 Hyponatremia E87.1 Peripheral vascular disease I73.9 Diabetes mellitus, type 2 E11.9 HTN (hypertension) I10 COPD (chronic obstructive pulmonary disease) J44.9 Lung cancer C34.90 Anxiety F41.9 Respiratory failure, acute and chronic J96.21 Respiratory failure complication: hypoxia [place] (acute kidney injury) N17.9 (9) Respiratory failure, acute and chronic Respiratory failure complication: hypoxia Qualified Code(s): J96.21 - Acute and chronic respiratory failure with hypoxia
--- NOTE | 2024-02-14 08:46 | Hospitalist Progress Note ---
Date of Service February 14, 2024 Assessment & Plan (1) Encephalopathy: Plan: 73-year-old lady with PMH of PVD s/p surgery, moderate MR [TTE 2021], atrial septal aneurysm, lung adenocarcinoma on Tagrisso, squamous cell carcinoma of the lung on chemotherapy, COPD, DM2 on oral meds, CKD [baseline creatinine of 1.6- 1.7], chronic hyponatremia secondary to SIADH, chronic anemia [baseline hemoglobin of 9], GERD, cervical intraepithelial neoplasm status post surgery, migraine, anxiety/mood disorder, ongoing tobacco abuse was brought to the ED with complaint of not feeling well for the last few weeks, not eating well and increasingly getting weak in the last few days, patient fell at home from being dizzy about 3 days ago [employer]FORM [employer] and has been sleeping all day and not urinating much. Patient also noted to have cough with shortness of breath, had been complaining of abdominal discomfort but denied black or bloody stool. Multifocal pneumonia Severe sepsis with shock in an immunocompromised patient Acute Hypoxic respiratory failure Metabolic encephalopathy Possible adrenal insufficiency: given intermittent Decadron Rx during chemotherapy. Random cortisol wnl. Pt on hydrocortisone in ICU. Patient presenting with cough and shortness of breath, had systolic blood pressure in 70s. Results of admitting CXR and CTA chest reviewed.Concerning for multifocal pneumonia Patient was admitted to ICU for vasopressor support. Patient was intubated on 02/10 due to progressive hypoxia/agitation Patient underwent bronchoscopy after intubation; thick grayish-white secretions appreciated in the trachea, daina and predominantly in bilateral lower lobe and left upper lobe. Bronchoalveolar lavage was obtained Patient extubated successfully on 02/13 Noticed to have right upper extremity swelling; will obtain venous duplex to rule out DVT On DuoNebs Continue on Zosyn and doxycycline; plan to treat for 7 days On hydrocortisone due to possible relative adrenal insufficiency Blood culture negative till date PT/OT evaluation. Acute kidney injury over CKD status 4: Baseline creatinine around 1.6-1.8, admitting creatinine of 2.8; some improvement to 2.48. Likely ischemic ATN given septic shock, anemia. Trial of Bumex as per ICU. Nephrology on board. Acute on chronic hyponatremia: Patient with chronic hyponatremia secondary to SIADH. Sodium level around 130. Admitting sodium level of 122. Sodium slowly improving, currently at 132. Acute on chronic anemia: Baseline hemoglobin around 9, admitting hemoglobin of 6.9, FOBT done in the ED was positive. Status post 2 unit PRBC, currently hemoglobin around 8 GI on board, continue with PPI, no plan for current intervention. Monitor H&H, transfuse for hemoglobin less than 8. Home aspirin on hold. Type II NSTEMI: Patient with elevated troponin at presentation, down trended. EKG with no acute ST or T changes. Echo with EF of 60 to 65%, LV systolic function normal, no regional wall motion abnormalities of LV noted. Demand ischemia secondary to acute illness. Continue telemetry. Right ankle fracture: Right ankle x-ray with age-indeterminate fracture of proximal tip of the fifth metatarsal tubercle. Continue to follow, pain management as appropriate. Other chronic medical conditions: Continue with/resume home meds as and when able. Two lung primary malignancies ongoing chemotherapy/Tagrisso Rx: Hold Rx due to acute illness. CTAP with concern for pelvic bone metastasis, will likely need MRI as outpatient once out of acute illness. hx PVD status post stent moderate MR (TTE 2021) atrial septal aneurysm as per records DM2 on oral medications, well-controlled as of recent hemoglobin A1c of 5.02 July 2023 ongoing tobacco abuse DVT prophylaxis. SCDs re: GI bleed Full code Time spent evaluating patient, direct bedside care, chart review, placing o rders, interpretation of diagnostic studies, as well as other required patient management activities is 50 minutes Please note the above document was generated using voice recognition software. It may contain grammatical, syntax or spelling errors. Any formal questions or concerns about the content, text or information contained within the body of this dictation should be directly addressed to the provider for clarification Admission and Anticipated Discharge Date Admission Date: February 10, 2024 Subjective Patient extubated and is currently on oxygen by nasal cannula. She is awake and oriented to self and place. Hemodynamically stable Has swelling of her right hand, forearm and arm; difficulty with movement. Review of Systems Review of Systems: All systems reviewed & are unremarkable except as noted in Subjective Physical Exam Physical Exam: Constitutional: Awake, oriented to self and place. Not in distress. Respiratory: Decreased breath sounds at bilateral bases. Cardiovascular: S1-S2, normal murmur. Abdomen: Soft, nondistended. Musculoskeletal: no cyanosis or clubbing.Swelling noticed on right hand, forearm. No overlying erythema Skin: no rashes, warm and dry normal turgor Neurologic: PERRLA, moves all extremities Results & Data Results & Data Vital Signs (Past 12 Hours) Vital Signs Temp Pulse Resp BP Pulse Ox FiO2 02/14/24 06:39 36.7 C 81 15 122/68 95 02/14/24 06:21 36.8 C 82 15 95 02/14/24 05:45 36.9 C 87 17 95 02/14/24 05:30 123/68 02/14/24 05:21 37.1 C 95 H 14 96 02/14/24 05:00 120/70 02/14/24 05:00 120/70 02/14/24 05:00 37.1 C 107 H 16 94 02/14/24 04:42 37.1 C 89 15 95 02/14/24 04:30 158/75 H 02/14/24 04:30 158/75 H 02/14/24 04:18 37.0 C 90 14 96 02/14/24 04:00 126/68 02/14/24 04:00 30 02/14/24 03:48 37.1 C 89 14 95 02/14/24 03:45 37.1 C 87 15 95 02/14/24 03:35 89 15 95 30 02/14/24 03:03 37.0 C 88 14 126/66 95 02/14/24 02:48 37.1 C 86 15 95 02/14/24 02:30 37.1 C 85 15 121/60 95 02/14/24 02:24 37.1 C 86 16 95 02/14/24 02:00 114/62 02/14/24 01:57 37.3 C 85 15 100 02/14/24 01:36 37.4 C 91 H 14 93 02/14/24 01:30 129/67 02/14/24 01:06 37.5 C 90 14 92 02/14/24 01:00 37.5 C 92 H 15 98/71 L 92 02/14/24 00:30 37.5 C 90 15 99/72 L 93 02/14/24 00:00 37.5 C 90 14 131/60 94 02/14/24 00:00 90 02/14/24 00:00 30 02/13/24 23:42 37.5 C 90 15 93 02/13/24 23:30 105/60 11/21/24 23:21 37.5 C 91 H 15 93 02/13/24 23:06 96 H 17 93 30 02/13/24 23:00 37.5 C 92 H 15 116/66 94 02/13/24 22:33 37.4 C 96 H 14 131/80 93 02/13/24 22:24 37.4 C 100 H 14 93 02/13/24 22:00 37.3 C 95 H 14 123/78 93 02/13/24 21:39 37.3 C 95 H 15 94 02/13/24 21:30 133/69 02/13/24 21:27 37.3 C 96 H 16 94 02/13/24 21:24 37.3 C 94 H 14 94 02/13/24 21:00 137/65 02/13/24 20:51 37.2 C 94 H 15 94
--- NOTE | 2024-02-14 09:27 | Nephrology Progress Note ---
Date of Service February 14, 2024 Assessment & Plan (1) Acute kidney injury (nontraumatic): Plan: now no longer oliguric stage 3 (d/t UOP) [place] on CKD 4 (baseline creatinine 1.6- 2.0 in 2023 though more 1.6-1.7 w/ stable weight December). presented with creatinine 2.8 > 2.6 > 2.7> 2.5 this AM. s/p IV contrast for CTA chest 02/09. 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 she has improving AG now and no acidemia; doubt role for Farxiga related ketoacidosis. she is 5.9 L positive so far as of this am presume ischemic ATN given hypotension, anemia and IV contrast. today phos, mag acceptable; improving renal failure, septic shock -For another 2 mg IV Bumex this afternoon, with which I agree Will also give 30 mill equivalents potassium IV -no need for IVF -daily bmp ->>>> Unlikely to need dialysis this admission, assuming other things stable; she remains critically ill however; dialysis consent obtained from 02/10 and on chart Care coordinated w/ Dr Mccoy via TText regarding diuretics, potassium, lab monitoring, overall clinical status; we are in agreement. (2) Hyponatremia: Plan: improving and no longer severe but moderate hyponatremia. presented w/ sNa 122 and dropped to 118 by 0100 02/10. 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 -sodium 132 today -goal sNa is no more than 138 by tomorrow am -monitor at least daily -no specific therapy at this time other than minimizing further volume overload and seeing if she can tolerate diuretics (3) CKD (chronic kidney disease) stage 4, GFR 15-29 ml/min: Plan: CKD 4 though past month w/ some improvement in creatinine (more 1.6-1.7) and wt maintained. follows w/ Dr Ellis most recently; has also seen Dr Chopra in the past (4) Hypomagnesemia: Plan: mild; on platin based therapy >> monitor daily; mag 2.0 today (5) Respiratory failure, acute and chronic: Plan: per pulmonary; failed bipap; multifactorial from copd, emphysema, multilobar pneumonia, lung ca x 2 types > f/u bronch results -5.9L + and no longer oliguric > cont diuretics as they support weaning vent (6) Lung cancer: Plan: on VEGF/TK inhibitor AND taxol / carboplatin/ ketruda and on intermittent decadron (last tx 01/22) (7) Pneumonia: Plan: severe; multilobar; cavitary lesions on imaging RLL, JAKE zosyn/doxy Admission and Anticipated Discharge Date Admission Date: February 10, 2024 Subjective Extubated this morning and off of pressors. Denies chest, abdominal, musculoskeletal pain, nausea, challenges breathing Review of Systems 2 Review of Systems: All systems reviewed & are unremarkable except as noted in Subjective Physical Exam 2 Constitutional: well developed, well nourished and + frail appearing; no acute distress Eyes: EOM intact bilaterally ENMT: Mouth: + dry oral mucous membranes Neck: no nuchal rigidity Respiratory: normal respiratory effort Auscultation: + diminished lung sounds Cardiovascular: Rate/Rhythm: regular rate and regular rhythm Extremities: + edema (Trace peripheral) Gastrointestinal (Abdomen): Inspection/Auscultation: normal bowel sounds P ercussion/Palpation: abdomen soft; abdomen nontender Musculoskeletal: Extremities: strength 5/5 throughout Skin: no rashes, warm and dry Results & Data Vital Signs (Past 12 Hours) Vital Signs Temp Pulse Resp BP Pulse Ox FiO2 02/14/24 06:39 36.7 C 81 15 122/68 95 02/14/24 06:21 36.8 C 82 15 95 02/14/24 05:45 36.9 C 87 17 95 02/14/24 05:30 123/68 02/14/24 05:21 37.1 C 95 H 14 96 02/14/24 05:00 120/70 02/14/24 05:00 120/70 02/14/24 05:00 37.1 C 107 H 16 94 02/14/24 04:42 37.1 C 89 15 95 02/14/24 04:30 158/75 H 02/14/24 04:30 158/75 H 02/14/24 04:18 37.0 C 90 14 96 02/14/24 04:00 126/68 02/14/24 04:00 30 02/14/24 03:48 37.1 C 89 14 95 02/14/24 03:45 37.1 C 87 15 95 02/14/24 03:35 89 15 95 30 02/14/24 03:03 37.0 C 88 14 126/66 95 02/14/24 02:48 37.1 C 86 15 95 02/14/24 02:30 37.1 C 85 15 121/60 95 02/14/24 02:24 37.1 C 86 16 95 02/14/24 02:00 114/62 02/14/24 01:57 37.3 C 85 15 100 02/14/24 01:36 37.4 C 91 H 14 93 02/14/24 01:30 129/67 02/14/24 01:06 37.5 C 90 14 92 02/14/24 01:00 37.5 C 92 H 15 98/71 L 92 02/14/24 00:30 37.5 C 90 15 99/72 L 93 02/14/24 00:00 37.5 C 90 14 131/60 94 02/14/24 00:00 90 02/14/24 00:00 30 02/13/24 23:42 37.5 C 90 15 93 02/13/24 23:30 105/60 02/13/24 23:21 37.5 C 91 H 15 93 02/13/24 23:06 96 H 17 93 30 02/13/24 23:00 37.5 C 92 H 15 116/66 94 02/13/24 22:33 37.4 C 96 H 14 131/80 93 02/13/24 22:24 37.4 C 100 H 14 93 02/13/24 22:00 37.3 C 95 H 14 123/78 93 02/13/24 21:39 37.3 C 95 H 15 94 02/13/24 21:30 133/69 Laboratory Results 02/14/24 04:40 02/14/24 04:34 Diagnostic Findings Chest x-ray with improving aeration (images personally reviewed) (5) Respiratory failure, acute and chronic Respiratory failure complication: hypoxia Qualified Code(s): J96.21 - Acute and chronic respiratory failure with hypoxia (6) Lung cancer Laterality: unspecified laterality Lung location: unspecified part of lung Qualified Code(s): C34.90 - Malignant neoplasm of unspecified part of unspecified bronchus or lung (7) Pneumonia Laterality: left Lung location: lower lobe of lung Pneumonia type: due to unspecified organism Qualified Code(s): J18.9 - Pneumonia, unspecified organism
[2024-02-14] MEDS: POTASSIUM CHLORIDE / WTR 10 MEQ/100 ML PLCT IV ONE (11:54)
[2024-02-14] MEDS: POTASSIUM CHLORIDE / WTR 20 MEQ/100 ML PLCT IV ONE (12:38)
[2024-02-14] MEDS: BUMETANIDE 2 MG in SYRINGE 0 ML IV ONE (13:44)
--- NOTE | 2024-02-14 13:48 | Ultrasound Report ---
RIGHT UPPER EXTREMITY VENOUS DOPPLER ULTRASOUND CLINICAL HISTORY: rule out DVT COMPARISON STUDY: No previous studies for comparison. TECHNIQUE: Sonography of the deep venous system of the right upper extremity was performed. FINDINGS: There is deep venous thrombus within the right internal jugular, subclavian and axillary ve ins. Thrombus is noted adjacent to the right internal jugular Difhfo-w-Hpoe. There is also superficia l thrombus within the right basilic vein. IMPRESSION: 1. Positive study with deep venous thrombus within the right internal jugular, subclavian and axillar y veins. Thrombus adjacent to the right internal jugular [id number]-Enal. 2. Superficial thrombus within the right basilic vein. ACT 112: Negative or not required by law. Electronically signed by: Abel Roberson M.D. 02/14/2024 1:46 PM
[2024-02-14] MEDS ORDERED: Heparin IV Adult Wt-Based Standard w/ INITIAL Bolus Protocol IV STA (13:50)
[2024-02-14] MEDS: POTASSIUM CHLORIDE / WTR 10 MEQ/100 ML PLCT IV SCH (14:22)
[2024-02-14] MEDS: HEPARIN SODIUM/DEXTROSE 25,000 UNITS/500 ML BAG IV SCH (14:40)
[2024-02-14] MEDS: HEPARIN SOD (PORCINE) 1000 UNIT/ML IV ONE (14:40)
[2024-02-14 16:40] LABS: Partial Thromboplastin Ratio > 4.9
[2024-02-14 16:49] LABS: Partial Thromboplastin Time > 139 Seconds (21-31)
[2024-02-14] MEDS ORDERED: Nursing to Pharmacy Communication SCH (18:00)
[2024-02-14] MEDS: INSULIN ASPART PER UNIT CHARGE SC SCH (18:31)
[2024-02-14] MEDS: METOPROLOL TARTRATE 25 MG TAB PO SCH (18:40)
[2024-02-14 21:57] LABS: ANTI-Xa, UFH(UnfractionatedHep 0.76 IU/ml (0.3-0.7)
[2024-02-14] MEDS ORDERED: hydrALAZINE HCL 20 MG/ML VIAL IV PRN (22:50)
[2024-02-14] MEDS: ALBUT/IPRATROP 3MG/0.5MG NEB 3 ML VIAL NEB PRN (23:07)
[2024-02-15] MEDS: METOPROLOL TARTRATE 1 MG/ML VIAL IV PRN (00:25)
[2024-02-15 05:12] LABS: Basophils # (auto) 0.03 K/uL (0.00-0.20); Basophils % (auto) 0.2 %; Eosinophils # (auto) 0.06 K/uL (0.00-0.50); Eosinophils % (auto) 0.4 %; Hematocrit (blood only) 24.6 % (37.0-47.0); Hemoglobin 8.4 g/dl (12.0-16.0); Immature Granulocytes # (auto) 0.27 K/uL (0.01-0.20); Lymphocytes # (auto) 1.24 K/uL (1.20-3.40); Mean Corpuscular Hgb Conc 34.1 g/dL (32.0-36.0); Mean Corpuscular Volume 84.8 fL (80.0-100.0); Mean Platelet Volume 10.3 fL (9.4-12.4); Monocytes # (auto) 0.49 K/uL (0.11-0.59); Monocytes % (auto) 3.6 %; Neutrophils # (auto) 11.65 K/uL (1.40-6.50); Neutrophils % (auto) 84.8 %; Nucleated RBC # (auto) 0.02 K/uL (0.00-0.12); Nucleated RBC % (auto) 0.1 %; Platelet Count 190 K/uL (130-400); RDW Coefficient of Variation 17.7 % (11.5-14.5); RDW Standard Deviation 55.4 fL (36.4-46.3); White Blood Count 13.74 K/ul (4.8-10.8)
[2024-02-15 05:24] LABS: BUN Creatinine Ratio 21.9 (10-20); Calcium 7.7 mg/dl (8.6-10.3); Magnesium 1.7 mg/dl (1.7-2.4); Phosphorus 4.3 mg/dl (2.5-4.9); Potassium 3.1 mmol/L (3.5-5.1)
[2024-02-15 05:42] LABS: ANTI-Xa, UFH(UnfractionatedHep 0.53 IU/ml (0.3-0.7)
--- NOTE | 2024-02-15 05:57 | XRay Report ---
EXAM: XR chest 1V portable CLINICAL HISTORY: EVAL LUNG HANSON JMF TECHNIQUE: An X-ray image of the chest is obtained in AP portable projection. COMPARISON: Previous study dated 02/13/2024. FINDINGS: Right CVL with tip in SVC. Removed ETT and NGT. Pulmonary Parenchyma: Interval stable course of patchy air space opacities and reticular thickening in left lung lower zone. Unchanged right lung lower zone inhomogeneous opacities. Prominent bilateral parahilar markings. Bilateral CP angles are obscured suggesting pleural effusion. Heart and Mediastinum: Heart size and shape are normal. No mediastinal widening or masses. No hilar or mediastinal lymphadenopathy. Bony Thorax: Bilateral shoulder replacement prosthesis. Mild spondylotic changes in the thoracic spine. The bony thorax appears intact without fractures or deformities. Soft Tissues: Soft tissues overlying the chest wall are unremarkable. IMPRESSION: 1. Interval stable course of patchy air space opacities and reticular thickening in left lung lower zone. 2. Unchanged right lung lower zone inhomogeneous opacities. 3. Right CVL with a tip in SVC. Electronically signed by Ragini Slois 02-15-2024 05:57 AM
[2024-02-15] MEDS: POTASSIUM CHLORIDE 20 MEQ/15 ML UDC PO STA (06:00)
[2024-02-15] MEDS: MAGNESIUM SULFATE / D5W 1 GM/100 ML BAG IV SCH (06:00)
--- NOTE | 2024-02-15 07:19 | Electrocardiogram Report ---
Test Reason : Blood Pressure : */* mmHG Vent. Rate : 100 BPM Atrial Rate : 100 BPM P-R Int : 182 ms QRS Dur : 96 ms QT Int : 374 ms P-R-T Axes : 93 93 64 degrees QTcB Int : 482 ms Normal sinus rhythm Rightward axis Borderline ECG When compared with ECG of 14-Feb-2024 15:50, (unconfirmed) Nonspecific T wave abnormality has replaced inverted T waves in Inferior leads Confirmed by Andrea Velásquez ([id number]) on 02/15/2024 7:19:28 AM Referred By: REFERRED SELF Confirmed By: Andrea Velásquez
--- NOTE | 2024-02-15 07:20 | Electrocardiogram Report ---
Test Reason : Blood Pressure : */* mmHG Vent. Rate : 105 BPM Atrial Rate : 105 BPM P-R Int : 166 ms QRS Dur : 100 ms QT Int : 346 ms P-R-T Axes : 89 89 10 degrees QTcB Int : 457 ms Sinus tachycardia Abnormal ECG When compared with ECG of 13-Feb-2024 10:08, (unconfirmed) Inverted T waves have replaced nonspecific T wave abnormality in Inferior leads Nonspecific T wave abnormality no longer evident in Lateral leads Confirmed by Andrea Velásquez ([id number]) on 02/15/2024 7:19:40 AM Referred By: REFERRED SELF Confirmed By: Andrea Velásquez
--- NOTE | 2024-02-15 07:25 | Electrocardiogram Report ---
Test Reason : Blood Pressure : */* mmHG Vent. Rate : 74 BPM Atrial Rate : 74 BPM P-R Int : 146 ms QRS Dur : 96 ms QT Int : 418 ms P-R-T Axes : 63 66 58 degrees QTcB Int : 463 ms Normal sinus rhythm Nonspecific T wave abnormality Abnormal ECG When compared with ECG of 10-Feb-2024 17:01, No significant change was found Confirmed by Andrea Velásquez ([id number]) on 02/15/2024 7:24:30 AM Referred By: REFERRED SELF Confirmed By: Andrea Velásquez
--- NOTE | 2024-02-15 07:48 | Critical Care Progress Note ---
Date of Service February 15, 2024 Assessment & Plan (1) Septic shock: (2) Hyponatremia: (3) Peripheral vascular disease: (4) Diabetes mellitus, type 2: (5) HTN (hypertension): (6) COPD (chronic obstructive pulmonary disease): (7) Lung cancer: (8) Anxiety: (9) Respiratory failure, acute and chronic: (10) [place] (acute kidney injury): Plan Reason Critically Ill: 73-year-old female with past medical history significant for COPD, lung cancer (undergoing treatment with chemotherapy), anxiety and depression, peripheral vascular disease, DM type II, HLD, HTN presents to the ICU with septic shock likely from pulmonary source, currently requiring vasopressor support with Levophed drip. Neuro - [facility] ICU: Negative Cardiac - --Right upper extremity DVT with high likelihood of pulmonary emboli Heparin started 02/14/2024 Given patient's creatinine is already elevated and it is not going to change the course of the treatment, CTA will not be ordered S/p shock Likely septic given the multilobar pneumonia Random cortisol will be on the lower side given patient is on chronic prednisone - Patient with elevated troponin, downtrending. Patient started on hydrocortisone 02/11/2024 --Elevated troponin Likely type II AK EKG changes EKG 02/14/[address] depressions on the lateral leads. Patient takes prednisone on a daily basis, will change it to Solu-Medrol while in the hospital Respiratory - -- S/p Vent dependent respiratory failure with acute on chronic hypoxic and hypercapnic respiratory failure Multifactorial Multilobar pneumonia Extubated 02/14/2024 para continue with BiPAP nightly and as needed shortness of breath -- COPD and emphysema - Scheduled nebs, DuoNeb as needed --History of squamous cell carcinoma of the lung On osimertinib CTA chest 02/10/2024 personally reviewed: Patchy opacities appreciated in the left upper lobe with some cavitary lesion Dense consolidative process in the left lower lobe with loculated left-sided pleural effusion Cavitary lesion in the right lower lobe perifissural, right upper lobe linear nodular opacity 3.1 cm x 5 cm Centrilobular and paraseptal emphysema appreciated bilaterally Moderate hiatal hernia Significant mediastinal lymphadenopathy GI - Probable GI bleed Patient with positive Hemoccult, no significant melena per report - GI consulted. They recommend conservative management for the time being RENAL/LYTES - Hyponatremiawith history of SIADH, etiology is most likely Tagrisso Serum osmolality 261, urine osmolality, 375, urine sodium 12 Patient with hypoosmolar hyponatremia with sodium of 122 on admission. -Nephrology on board [place] On CKD Likely prerenal in the setting of hypotension. Baseline creatinine around 1.5 - Avoid nephrotoxins renally adjust medications - Maintain MAP greater than 65 to ensure renal perfusion - Strict I's and O's ENDO - DM type II Continue with ICU hyperglycemic protocol HEME - Acute on chronic anemia S/p 1 unit PRBC on 02/10/2024. Has received multiple transfusions in the past as well Follow-up iron studies Monitor H&H ID - Sepsislikely pulmonary source with left lower lobe consolidation noted on CTA chest, and immunocompromise patient receiving chemotherapy for lung cancer. - BioFire negative, nasal MRSA negative - Urinalysis unremarkable - Follow blood and sputum culture --Prophylaxis VTE: Heparin drip GI: Pantoprazole Lines: Right-sided Port-A-Cath, peripheral Diet: Cardiac renal diet Plan: In/out: -441, urine output 1870, +6 L since coming to the hospital Chest x-ray from today still shows dense consolidative process especially in the right lower lobe Creatinine has bumped up today. Patient did have tachycardia yesterday on multiple location likely secondary to acute pulmonary emboli She is making good amount of urine. Will hold back on further diuretics today Potassium being replaced Continue with antibiotics Continue with tapering dose of hydrocortisone Repeat EKG today Given that the patient had a difficult night and the oxygen need has increased, keep her in the ICU for the day Patient's Ryne [phone] Please note the above document was generated using voice recognition software. It may contain grammatical, syntax or spelling errors.Any formal questions or concerns about the content, text or information contained within the body of this dictation should be directly addressed to the provider for clarification. Admission and Anticipated Discharge Date Admission Date: February 10, 2024 Subjective Patient seen and examined at bedside. No acute distress Overnight patient was hypoxic and tachycardic for which she was put on high flow followed by BiPAP. The time of examination she was saturating 96% on 10 L, I was able to go down to 5 L and she was still saturating 93-94% Denies any chest pain Is able to tolerate clear liquids without any issues Will advance as tolerated Diuresing well Has been having low-grade fever Review of Systems 2 Review of Systems: All systems reviewed & are unremarkable except as noted in Subjective Physical Exam 2 Physical Exam: Constitutional: No acute distress HEENT: PERRLA, EOMI Respiratory system: Decreased air entry bilaterally, no wheeze, rhonchi, positive crackles bilaterally CVS: S1-S2 positive, no murmurs or gallops Abdomen: Soft, nontender, nondistended, positive bowel sounds x4 Extremities: +2 pulses bilaterally radialis/ dorsalis pedis, no cyanosis, positive pitting edema bilateral lower extremity Neuro: Awake alert oriented x 3 Psych: Normal mood and affect G/U: Positive [place] Skin: no rashes, warm and dry Lymphatic: no cervical or axillary lymphadenopathy Results & Data Results & Data Vital Signs (Past 12 Hours) Vital Signs Temp Pulse Pulse Resp BP Pulse Ox O2 Del Method 02/15/24 07:10 94 H 20 93 Oxymask 02/15/24 06:00 37.1 C 93 H 19 125/79 97 02/15/24 05:34 98 02/15/24 05:03 36.9 C 86 33 H 99 02/15/24 04:38 103/75 02/15/24 04:33 37.0 C 96 H 41 H 99 02/15/24 04:24 36.6 C 105 H 20 97 02/15/24 03:21 37.0 C 96 H 18 122/80 97 02/15/24 02:54 37.2 C 101 H 20 98 02/15/24 02:36 103 H 20 95 02/15/24 02:24 36.7 C 107 H 30 H 94 02/15/24 02:05 104 H 20 92 High Flow Nasal Cannula 02/15/24 01:30 35.8 C L 109 H 19 144/76 H 89 L 02/15/24 01:03 36.4 C L 105 H 17 159/75 H 88 L 02/15/24 00:57 36.3 C L 108 H 20 87 L 02/15/24 00:40 106 H 02/15/24 00:33 37.3 C 108 H 16 132/58 L 88 L 02/15/24 00:25 115 H 149/70 H 02/15/24 00:15 37.4 C 112 H 17 92 02/15/24 00:03 37.4 C 112 H 21 149/70 H 91 02/14/24 23:54 37.3 C 104 H 20 97 02/14/24 23:36 37.0 C 105 H 15 153/86 H 96 02/14/24 23:33 103 H 22 96 High Flow Nasal Cannula 02/14/24 23:24 37.1 C 105 H 18 89 L 02/14/24 23:12 37.1 C 103 H 20 90 02/14/24 23:07 103 H 18 94 Oxymask 02/14/24 23:00 135/87 02/14/24 22:56 133/80 02/14/24 22:51 37.4 C 103 H 18 91 02/14/24 22:33 36.8 C 103 H 18 163/82 H 91 02/14/24 22:27 37.1 C 105 H 24 89 L 02/14/24 22:09 37.3 C 101 H 18 90 02/14/24 22:08 Oxymask 02/14/24 22:00 156/83 H 02/14/24 21:57 37.0 C 105 H 18 85 L 02/14/24 21:36 37.2 C 102 H 20 88 L 02/14/24 21:03 37.4 C 101 H 17 152/85 H 91 02/14/24 20:36 37.5 C 105 H 22 95 02/14/24 20:33 37.4 C 108 H 20 95 02/14/24 20:30 173/94 H 02/14/24 20:27 119 H 18 90 Nasal Cannula 02/14/24 20:00 37.3 C 103 H 24 143/69 H 88 L O2 Flow Rate FiO2 02/15/24 07:10 10 02/15/24 06:00 02/15/24 05:34 50 02/15/24 05:03 02/15/24 04:38 02/15/24 04:33 02/15/24 04:24 02/15/24 03:21 02/15/24 02:54 02/15/24 02:36 60 02/15/24 02:24 02/15/24 02:05 40 60 02/15/24 01:30 02/15/24 01:03 02/15/24 00:57 02/15/24 00:40 02/15/24 00:33 02/15/24 00:25 02/15/24 00:15 02/15/24 00:03 02/14/24 23:54 02/14/24 23:36 02/14/24 23:33 40 55 02/14/24 23:24 02/14/24 23:12 02/14/24 23:07 6 02/14/24 23:00 02/14/24 22:56 02/14/24 22:51 02/14/24 22:33 02/14/24 22:27 02/14/24 22:09 02/14/24 22:08 3 02/14/24 22:00 02/14/24 21:57 02/14/24 21:36 02/14/24 21:03 02/14/24 20:36 02/14/24 20:33 02/14/24 20:30 02/14/24 20:27 3 02/14/24 20:00 Laboratory Results 02/15/24 04:10 02/15/24 04:10 Coding Level of Care Code 64475 SUB INP/OBS CARE 3/50MIN Diagnoses Septic shock A41.9; R65.21 Hyponatremia E87.1 Peripheral vascular disease I73.9 Diabetes mellitus, type 2 E11.9 HTN (hypertension) I10 COPD (chronic obstructive pulmonary disease) J44.9 Lung cancer C34.90 Anxiety F41.9 Respiratory failure, acute and chronic J96.21 Respiratory failure complication: hypoxia [place] (acute kidney injury) N17.9 (9) Respiratory failure, acute and chronic Respiratory failure complication: hypoxia Qualified Code(s): J96.21 - Acute and chronic respiratory failure with hypoxia
--- NOTE | 2024-02-15 08:56 | Hospitalist Progress Note ---
Date of Service February 15, 2024 Assessment & Plan (1) Encephalopathy: Plan: 73-year-old lady with PMH of PVD s/p surgery, moderate MR [TTE 2021], atrial septal aneurysm, lung adenocarcinoma on Tagrisso, squamous cell carcinoma of the lung on chemotherapy, COPD, DM2 on oral meds, CKD [baseline creatinine of 1.6- 1.7], chronic hyponatremia secondary to SIADH, chronic anemia [baseline hemoglobin of 9], GERD, cervical intraepithelial neoplasm status post surgery, migraine, anxiety/mood disorder, ongoing tobacco abuse was brought to the ED with complaint of not feeling well for the last few weeks, not eating well and increasingly getting weak in the last few days, patient fell at home from being dizzy about 3 days ago [employer] and has been sleeping all day and not urinating much. Patient also noted to have cough with shortness of breath, had been complaining of abdominal discomfort but denied black or bloody stool. Multifocal pneumonia Severe sepsis with shock in an immunocompromised patient Acute Hypoxic respiratory failure Metabolic encephalopathy Possible adrenal insufficiency: given intermittent Decadron Rx during chemotherapy. Random cortisol wnl. Pt on hydrocortisone in ICU. Acute right upper extremity DVT Patient presenting with cough and shortness of breath, had systolic blood pressure in 70s. Results of admitting CXR and CTA chest reviewed.Concerning for multifocal pneumonia Patient was admitted to ICU for vasopressor support. Patient was intubated on 02/10 due to progressive hypoxia/agitation Patient underwent bronchoscopy after intubation; thick grayish-white secretions appreciated in the trachea, daina and predominantly in bilateral lower lobe and left upper lobe. Bronchoalveolar lavage was obtained Patient extubated successfully on 02/13 Noticed to have right upper extremity swelling on 02/13; Venous duplex shows; DVT in right internal jugular, subclavian and axillary vein On heparin drip; continue. Continue on Zosyn and doxycycline; plan to treat for 7 days On hydrocortisone due to possible relative adrenal insufficiency Blood culture negative till date PT/OT evaluation. Acute kidney injury over CKD Baseline creatinine around 1.6-1.8, admitting creatinine of 2.8; Likely ischemic ATN given septic shock, anemia. Trial of Bumex as per ICU on 02/12 and 02/13. Nephrology on board. Acute on chronic hyponatremia: Patient with chronic hyponatremia secondary to SIADH. Sodium level around 130. Admitting sodium level of 122. Sodium slowly improving, currently at 136. Acute on chronic anemia: Baseline hemoglobin around 9, admitting hemoglobin of 6.9, FOBT done in the ED was positive. Status post 2 unit PRBC, currently hemoglobin around 8 GI on board, continue with PPI, no plan for current intervention. Monitor H&H, transfuse for hemoglobin less than 7. Currently on heparin drip for DVT Type II NSTEMI: Patient with elevated troponin at presentation, down trended. EKG with no acute ST or T changes. Echo with EF of 60 to 65%, LV systolic function normal, no regional wall motion abnormalities of LV noted. Demand ischemia secondary to acute illness. Continue telemetry. Right ankle fracture: Right ankle x-ray with age-indeterminate fracture of proximal tip of the fifth metatarsal tubercle. Examination does not reveal any deformity/pain. No hx of trauma Other chronic medical conditions: Continue with/resume home meds as and when able. Two lung primary malignancies ongoing chemotherapy/Tagrisso Rx: Hold Rx due to acute illness. CTAP with concern for pelvic bone metastasis, will need follow up with her oncologist. hx PVD status post stent moderate MR (TTE 2021) atrial septal aneurysm as per records DM2 on oral medications, well-controlled as of recent hemoglobin A1c of 5.02 July 2023 ongoing tobacco abuse DVT prophylaxis. heparin drip Full code Time spent evaluating patient, direct bedside care, chart review, placing orders, interpretation of diagnostic studies, as well as other required patient management activities is 50 minutes Please note the above document was generated using voice recognition software. It may contain grammatical, syntax or spelling errors. Any formal questions or concerns about the content, text or information contained within the body of this dictation should be directly addressed to the provider for clarification Admission and Anticipated Discharge Date Admission Date: February 10, 2024 Subjective Patient seen and examined at bedside. She is awake, oriented to self time and place. She is moving all her extremities. She denies any pain or discomfort. Overnight, she required to be on BiPAP due to respiratory distress; currently on nasal cannula at 4 L/min. Review of Systems Review of Systems: All systems reviewed & are unremarkable except as noted in Subjective Physical Exam Physical Exam: Constitutional: Awake, oriented to self and place. Not in distress. Respiratory: Decreased breath sounds at bilateral bases. Cardiovascular: S1-S2, normal murmur. Abdomen: Soft, nondistended. Musculoskeletal: no cyanosis or clubbing.Swelling on right hand, forearm improved compared to yesterday. No overlying erythema. Skin: no rashes, warm and dry normal turgor Neurologic: PERRLA, moves all extremities Results & Data Results & Data Vital Signs (Past 12 Hours) Vital Signs Temp Pulse Pulse Resp BP Pulse Ox O2 Del Method 02/15/24 07:30 Nasal Cannula 02/15/24 07:10 94 H 20 93 Oxymask 02/15/24 06:00 37.1 C 93 H 19 125/79 97 02/15/24 05:34 98 02/15/24 05:03 36.9 C 86 33 H 99 02/15/24 04:38 103/75 02/15/24 04:33 37.0 C 96 H 41 H 99 02/15/24 04:24 36.6 C 105 H 20 97 02/15/24 03:21 37.0 C 96 H 18 122/80 97 02/15/24 02:54 37.2 C 101 H 20 98 02/15/24 02:36 103 H 20 95 02/15/24 02:24 36.7 C 107 H 30 H 94 02/15/24 02:05 104 H 20 92 High Flow Nasal Cannula 02/15/24 01:30 35.8 C L 109 H 19 144/76 H 89 L 02/15/24 01:03 36.4 C L 105 H 17 159/75 H 88 L 02/15/24 00:57 36.3 C L 108 H 20 87 L 02/15/24 00:40 106 H 02/15/24 00:33 37.3 C 108 H 16 132/58 L 88 L 02/15/24 00:25 115 H 149/70 H 02/15/24 00:15 37.4 C 112 H 17 92 02/15/24 00:03 37.4 C 112 H 21 149/70 H 91 02/14/24 23:54 37.3 C 104 H 20 97 02/14/24 23:36 37.0 C 105 H 15 153/86 H 96 02/14/24 23:33 103 H 22 96 High Flow Nasal Cannula 02/14/24 23:24 37.1 C 105 H 18 89 L 02/14/24 23:12 37.1 C 103 H 20 90 02/14/24 23:07 103 H 18 94 Oxymask 02/14/24 23:00 135/87 02/14/24 22:56 133/80 02/14/24 22:51 37.4 C 103 H 18 91 02/14/24 22:33 36.8 C 103 H 18 163/82 H 91 02/14/24 22:27 37.1 C 105 H 24 89 L 02/14/24 22:09 37.3 C 101 H 18 90 02/14/24 22:08 Oxymask 02/14/24 22:00 156/83 H 02/14/24 21:57 37.0 C 105 H 18 85 L 02/14/24 21:36 37.2 C 102 H 20 88 L 02/14/24 21:03 37.4 C 101 H 17 152/85 H 91 O2 Flow Rate FiO2 02/15/24 07:30 4 02/15/24 07:10 10 02/15/24 06:00 02/15/24 05:34 50 02/15/24 05:03 02/15/24 04:38 02/15/24 04:33 02/15/24 04:24 02/15/24 03:21 02/15/24 02:54 02/15/24 02:36 60 02/15/24 02:24 02/15/24 02:05 40 60 02/15/24 01:30 02/15/24 01:03 02/15/24 00:57 02/15/24 00:40 02/15/24 00:33 02/15/24 00:25 02/15/24 00:15 02/15/24 00:03 02/14/24 23:54 02/14/24 23:36 02/14/24 23:33 40 55 02/14/24 23:24 02/14/24 23:12 02/14/24 23:07 6 02/14/24 23:00 02/14/24 22:56 02/14/24 22:51 02/14/24 22:33 02/14/24 22:27 02/14/24 22:09 02/14/24 22:08 3 02/14/24 22:00 02/14/24 21:57 02/14/24 21:36 02/14/24 21:03
--- NOTE | 2024-02-15 10:58 | Nephrology Progress Note ---
Date of Service February 15, 2024 Assessment & Plan (1) Acute kidney injury (nontraumatic): Plan: No longer oliguric stage 3 (d/t UOP) [place] on CKD 4 (baseline creatinine 1.6-2.0 in 2023 though more 1.6-1.7 w/ stable weight December). presented with creatinine 2.8 > 2.6 > 2.7> 2.5 this AM. s/p IV contrast for CTA chest 02/09. reviewed OP records > no prior bicarb drops or e/o metabolic acidosis RN PACU. she has improving AG now and no acidemia; doubt role for Farxiga related ketoacidosis. presume ischemic ATN given hypotension, anemia and IV contrast. -Renal fucntions have worsened, UOP was @ 1.8 lit and he is comfortable on 5 lit Oxygen -Will hold on any diuretic today -Replace K to keep levels> 4.0. -no need for IVF -daily bmp ->>>> Unlikely to need dialysis this admission, assuming other things stable; she remains critically ill however; dialysis consent obtained from 02/10 and on chart (2) Hyponatremia: Plan: improving and no longer severe but moderate hyponatremia. presented w/ sNa 122 and dropped to 118 by 0100 02/10. 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 -sodium 136 today -monitor at least daily -no specific therapy at this time other than minimizing further volume overload and seeing if she can tolerate diuretics (3) CKD (chronic kidney disease) stage 4, GFR 15-29 ml/min: Plan: CKD 4 though past month w/ some improvement in creatinine (more 1.6-1.7) and wt maintained. follows w/ Dr Ellis (4) Hypomagnesemia: Plan: mild; on platin based therapy >> monitor daily; (5) Respiratory failure, acute and chronic: Plan: per pulmonary; failed bipap; multifactorial from copd, emphysema, multilobar pneumonia, lung ca x 2 types > f/u bronch results -no longer oliguric, now on 5l oxygen. (6) Lung cancer: Plan: on VEGF/TK inhibitor AND taxol / carboplatin/ ketruda and on intermittent decadron (last tx 01/22) (7) Pneumonia: Plan: severe; multilobar; cavitary lesions on imaging RLL, JAKE zosyn/doxy Admission and Anticipated Discharge Date Admission Date: February 10, 2024 Subjective No acute distress On 5 L and she was still saturating 93-94% Denies any chest pain Is able to tolerate clear liquids without any issues Diuresing well Has been having low-grade fever Review of Systems 2 Review of Systems: No acute distress Results & Data Vital Signs (Past 12 Hours) Vital Signs Temp Pulse Pulse Resp BP Pulse Ox O2 Del Method 02/15/24 09:00 98 H 29 H 93 Nasal Cannula 02/15/24 09:00 158/73 H 02/15/24 09:00 158/73 H 02/15/24 09:00 158/73 H 02/15/24 08:18 101 H 20 95 02/15/24 08:00 153/69 H 02/15/24 08:00 153/69 H 02/15/24 07:57 36.5 C 104 H 18 92 02/15/24 07:30 Nasal Cannula 02/15/24 07:18 34.8 C L 98 H 26 H 93 02/15/24 07:10 94 H 20 93 Oxymask 02/15/24 07:00 147/63 H 02/15/24 06:00 37.1 C 93 H 19 125/79 97 02/15/24 05:34 98 02/15/24 05:03 36.9 C 86 33 H 99 02/15/24 04:38 103/75 02/15/24 04:33 37.0 C 96 H 41 H 99 02/15/24 04:24 36.6 C 105 H 20 97 02/15/24 03:21 37.0 C 96 H 18 122/80 97 02/15/24 02:54 37.2 C 101 H 20 98 02/15/24 02:36 103 H 20 95 02/15/24 02:24 36.7 C 107 H 30 H 94 02/15/24 02:05 104 H 20 92 High Flow Nasal Cannula 02/15/24 01:30 35.8 C L 109 H 19 144/76 H 89 L 02/15/24 01:03 36.4 C L 105 H 17 159/75 H 88 L 02/15/24 00:57 36.3 C L 108 H 20 87 L 02/15/24 00:40 106 H 02/15/24 00:33 37.3 C 108 H 16 132/58 L 88 L 02/15/24 00:25 115 H 149/70 H 02/15/24 00:15 37.4 C 112 H 17 92 02/15/24 00:03 37.4 C 112 H 21 149/70 H 91 02/14/24 23:54 37.3 C 104 H 20 97 02/14/24 23:36 37.0 C 105 H 15 153/86 H 96 02/14/24 23:33 103 H 22 96 High Flow Nasal Cannula 02/14/24 23:24 37.1 C 105 H 18 89 L 02/14/24 23:12 37.1 C 103 H 20 90 02/14/24 23:07 103 H 18 94 Oxymask 02/14/24 23:00 135/87 02/14/24 22:56 133/80 O2 Flow Rate FiO2 02/15/24 09:00 5 02/15/24 09:00 02/15/24 09:00 02/15/24 09:00 02/15/24 08:18 02/15/24 08:00 02/15/24 08:00 02/15/24 07:57 02/15/24 07:30 4 02/15/24 07:18 02/15/24 07:10 10 02/15/24 07:00 02/15/24 06:00 02/15/24 05:34 50 02/15/24 05:03 02/15/24 04:38 02/15/24 04:33 02/15/24 04:24 02/15/24 03:21 02/15/24 02:54 02/15/24 02:36 60 02/15/24 02:24 02/15/24 02:05 40 60 02/15/24 01:30 02/15/24 01:03 02/15/24 00:57 02/15/24 00:40 02/15/24 00:33 02/15/24 00:25 02/15/24 00:15 02/15/24 00:03 02/14/24 23:54 02/14/24 23:36 02/14/24 23:33 40 55 02/14/24 23:24 02/14/24 23:12 02/14/24 23:07 6 02/14/24 23:00 02/14/24 22:56 Laboratory Results 02/15/24 04:10 02/15/24 04:10 (5) Respiratory failure, acute and chronic Respiratory failure complication: hypoxia Qualified Code(s): J96.21 - Acute and chronic respiratory failure with hypoxia (6) Lung cancer Laterality: unspecified laterality Lung location: unspecified part of lung Qualified Code(s): C34.90 - Malignant neoplasm of unspecified part of unspecified bronchus or lung (7) Pneumonia Laterality: left Lung location: lower lobe of lung Pneumonia type: due to unspecified organism Qualified Code(s): J18.9 - Pneumonia, unspecified organism
[2024-02-15] MEDS: POTASSIUM CHLORIDE 20 MEQ/15 ML UDC PO SCH (11:47)
[2024-02-15] MEDS ORDERED: STAT IV Infusion **Titration per Protocol STA ×2 (13:30→23:12)
[2024-02-15] MEDS: dexMEDEtomidine 200 MCG/50 ML BAG IV SCH (13:38)
--- NOTE | 2024-02-15 14:05 | XRay Report ---
XR chest 1V portable CLINICAL HISTORY: Shortness of breath. Lung cancer. COMPARISON STUDY: Chest radiograph performed earlier today. Chest CT February 10, 2024. FINDINGS: Right internal jugular [id number] is in place. There are bilateral shoulder arthroplasti es as well as postoperative findings within the right neck. Cavitary right lower lobe mass is obscure d on this examination. There is no pneumothorax. Small bilateral pleural effusions are present. Exten sive bilateral airspace opacities persist. Cardiomediastinal silhouette is stable. IMPRESSION: 1. Persistent extensive bilateral airspace opacities suggestive of pneumonia or aspiration pneumoniti s. 2. Small bilateral pleural effusions. No pneumothorax. ACT 112: Negative or not required by law. Electronically signed by: Abel Roberson M.D. 02/15/2024 2:04 PM
[2024-02-15] MEDS: buPROPion HCl 100 MG TABLET PO SCH (14:31)
[2024-02-15] MEDS: traZODone HCL 100 MG TAB PO SCH (14:32)
[2024-02-15] MEDS: RAPID SEQUENCE INDUCTION BAG ONE (14:35)
[2024-02-15] MEDS: VENLAFAXINE HCL XR 150 MG CAPXR PO SCH (14:45)
[2024-02-15] MEDS ORDERED: ETOMIDATE 2 MG/ML 20 ML VIAL IV ONE (14:55)
[2024-02-15] MEDS ORDERED: fentaNYL citrate PF 100 MCG/2 ML VIAL IV ONE (14:55)
[2024-02-15] MEDS ORDERED: ROCURONIUM BROMIDE 10 MG/ML 5 ML VIAL IV ONE (14:55)
--- NOTE | 2024-02-15 15:40 | Communication Note ---
Date of Service: February 15, 2024 Critical care addendum: Was called by RN to look at the patient as she was tachypneic She was on high flow 80%, 40 L flow tachypneic in the mid 20s with accessory muscle use. Saturation was low 90s. Patient's was in the room. Plan was to give a trial of BiPAP and see how she does. If there was any worsening then plan will be to intubate. Chest x-ray was ordered stat to see if there is any worsening when it comes to her pulmonary infiltrates. Chest x-ray did not show any significant change compared to the morning x-ray. I ordered Precedex as patient does have significant anxiety issues. In 3 minutes when I came to reassess the patient respirate had suddenly decreased to high teens. She was not in any respiratory distress and she felt much better. I do think patient has panic attacks/anxiety on top of her bad pneumonia. I will continue with Precedex for the time being. Will give BiPAP to support. I will resume her venlafaxine, trazodone as well as bupropion. I did reiterate with the patient as well as patient's that if there is any worsening in her breathing then she will be intubated I have personally spent 38 minutes of critical care time in the direct management of this patient. This is a life/limb threatening event. This includes time spent evaluating patient, direct bedside care, chart review, placing orders, interpretation of diagnostic studies, discussion with consultants, patient, and family members, as well as other required patient management activities. This time is exclusive of all separately billable procedures, and teaching time and separate from and in addition to any other critical care service time. Please note the above document was generated using voice recognition software. It may contain grammatical, syntax or spelling errors. Coding Level of Care Code 45869 CRITICAL CARE 1ST 30-74M
[2024-02-15] MEDS: HYDROCORTISONE SOD 50 MG in SYRINGE 0 ML IV SCH (20:09)
--- NOTE | 2024-02-15 23:11 | Emergency Department Note ---
ED Visit Note Impression: Respiratory failure with hypoxia Bilateral pneumonia Procedures: Endotracheal Intubation performed by Dr. Gilletet Indication: Respiratory failure The patient was on 100% oxygen via NRB prior to the procedure. Suction, airway equipment, RSI drugs, respiratory equipment, and appropriate personnel were prepared prior to the initiation of the procedure. A time out was taken. Induction was performed with fentanyl 50 mcg and etomidate 30 mg. Paralytics used w/ rocuronium 40 mg IV. After observing the clinical benefit of the medications, the airway was easily visualized utilizing a size 3 video laryngoscope. A 7.5 size ETT tube was was used but unable to pass through the cords. The cords were visualized without issue. Patient was desatting into the 80s so the first attempt was aborted and cqf-eqokc-pkov breaths were applied. The patient did desat as low as into the 60s but had significant improvement into the high 90s. I did ask that an additional 50 mg of IV rocuronium be given. A 7.0 sized ET tube was advanced still with some mild difficulty with advancing through the cords but after retracting the stylette ET tube was advanced without issue and the patient never desatted during this attempt. Placed atraumatically to 23 cm using standard technique. The cuff inflated without signs of malfunction. There were bilateral breath sounds, positive colormetric change, no gastric sounds, a good capnography waveform, and post procedure pulse oximetry was 98%. Post intubation sedation and any additional medications deferred to the intensive care unit team KARIN Lara. Imaging: CXR I informally interpreted the patient's chest x-ray shows ET tube about 3.3 cm above the daina bilateral pneumonia noted more prominent on the right with formal report to follow. Clinical note: I did receive a call from the intensive care unit due to concerns for increasing work of breathing desaturations and wheezing. The patient had been admitted for a pneumonia had been exposed to beta 2 days prior but was having significant work of breathing. Patient did have issues this morning and there may be an anxiety component was rescued with BiPAP and dexmedetomidine with the overnight advanced practice provider KARIN Lara was concerned that the patient would have worsening respiratory symptoms requiring intubation overnight. I was called the unit in order to perform intubation. .
--- NOTE | 2024-02-15 23:12 | Communication Note ---
Date of Service: February 15, 2024 73 YOF with hx of COPD, Lung Cancer, Anxiety and Depression- previously intubated for multilobar pneumonia for which she was extubated on 02/13/23. Adelaide nova needed BiPAP support through the director of academic support of 02/15/24 as well as throughout the day today for tachypnea and hypoxia. We have attempted at managing her anxiety component with re-instituting her medications and Precedex drip. This evening patient was feeling short of breath and tripoding in the bed to breath. She was having increasing difficulty breathing with accessory muscle use of abdomen and neck retractions. She was given a nebulizer as well as placed back on BiPAP and increase in her Precedex infusion. Patient responded mildly, but remained with abdominal breathing and feeling tired. We discussed intubating her again and she was agreeable to this. Patient was intubated by Dr. Gillette from the [facility] with 7.0 ETT and GlideScope. ETT is at 23 cm at teeth - see separate procedure note. Patient will be placed on AC/400//- ABG at 2330 will adjust ventilator based on these results. Brock FRAZIER (ACNP-)
--- NOTE | 2024-02-16 00:05 | XRay Report ---
Exam(s): XR CXR 1 VIEW EXAM: XR Chest, 1 View CLINICAL HISTORY: Reason for exam: post intubation and OGT placement- eval tubes/line. TECHNIQUE: Frontal view of the chest. COMPARISON: No relevant prior studies available. FINDINGS: Lungs: Persistent bilateral airspace opacities. Pleural space: Small pleural effusions. No pneumothorax. Heart: Stable heart size. Bones/joints: Bilateral shoulder resurfacing arthroplasties. No acute osseous findings. Tubes, lines and devices: Right chest wall port catheter with tip in the SVC. Enteric tube extends to the stomach and beyond the [id number]-ft-xewt. Endotracheal tube terminates 3.3 cm above the daina. IMPRESSION: 1. Persistent bilateral airspace opacities. 2. Small pleural effusions. 3. Enteric tube extends to the stomach and beyond the [id number]-[id number]. 4. Endotracheal tube terminates 3.3 cm above the daina. Electronically signed by: Jonny Chowdhury M.D. 02/16/24 00:04 AM
[2024-02-16 00:07] LABS: iSTAT Allen Test Pass; iSTAT Art Bld Gas pCO2 Correct 48 mmHg (35-46); iSTAT Art Bld Gas pH Corrected 7.258 (7.35-7.45); iSTAT Arterial Blood Gas HCO3 21 meg/L (19-24); iSTAT Arterial Blood Gas pCO2 46 mmHg (35-46); iSTAT Arterial Blood Gas pH 7.27 (7.35-7.45); iSTAT Arterial Blood Gas pO2 77 mmHg (80-95); iSTAT Arterial Blood Gas pO2 C 82; iSTAT Carbon Dioxide 23 mmol/L (24-31); iSTAT FiO2 80 %; iSTAT Hematocrit 26 % (37-47); iSTAT Hemoglobin 8.8 g/dl (12.0-16.0); iSTAT Potassium 3.7 mmol/L (3.3-5.0); iSTAT Sample Type Arterial; iSTAT Site L Radial; iSTAT Sodium 130 mmol/L (135-144); iSTAT SpO2 91
[2024-02-16] MEDS: fentaNYL citrate 2,500 MCG/250 ML BAG IV SCH (00:12)
[2024-02-16] MEDS: fentaNYL citrate 2,500 MCG/250 ML BAG IV ONE (00:13)
[2024-02-16] MEDS: RAPID SEQUENCE INDUCTION BAG ONE (00:13)
[2024-02-16] MEDS: propofoL 1,000 MG/100 ML VIAL IV SCH (00:13)
[2024-02-16] MEDS: PROPOFOL IV EMULSION 10 MG/ML 100 ML VIAL IV ONE (00:13)
[2024-02-16] MEDS: ALBUT/IPRATROP 3MG/0.5MG NEB 3 ML VIAL NEB SCH (00:39)
[2024-02-16] MEDS ORDERED: STAT IV Infusion **Titration per Protocol STA (04:40)
[2024-02-16] MEDS: NOREPINEPHRINE/D5W 4 MG/250 ML PLCT IV SCH (04:46)
[2024-02-16 04:58] LABS: Basophils # (auto) 0.03 K/uL (0.00-0.20); Basophils % (auto) 0.2 %; Eosinophils # (auto) 0.07 K/uL (0.00-0.50); Eosinophils % (auto) 0.5 %; Hematocrit (blood only) 23.5 % (37.0-47.0); Hemoglobin 7.8 g/dl (12.0-16.0); Immature Granulocytes # (auto) 0.35 K/uL (0.01-0.20); Immature Granulocytes % (auto) 2.5 %; Lymphocytes % (auto) 7.9 %; Mean Corpuscular Hemoglobin 28.4 pg (25.0-34.0); Mean Corpuscular Hgb Conc 33.2 g/dL (32.0-36.0); Mean Corpuscular Volume 85.5 fL (80.0-100.0); Mean Platelet Volume 10.4 fL (9.4-12.4); Monocytes # (auto) 0.38 K/uL (0.11-0.59); Monocytes % (auto) 2.7 %; Neutrophils # (auto) 11.96 K/uL (1.40-6.50); Neutrophils % (auto) 86.2 %; Platelet Count 184 K/uL (130-400); RDW Coefficient of Variation 18.4 % (11.5-14.5); RDW Standard Deviation 58.3 fL (36.4-46.3); Red Blood Count 2.75 M/uL (4.20-5.40); White Blood Count 13.89 K/ul (4.8-10.8)
[2024-02-16 05:10] LABS: BUN Creatinine Ratio 23.2 (10-20); Calcium 7.9 mg/dl (8.6-10.3); Creatinine Clr Calc Pharmacy 15.8 ml/min; Magnesium 2.1 mg/dl (1.7-2.4); Potassium 3.7 mmol/L (3.5-5.1)
[2024-02-16 05:40] LABS: Acanthocytes 1+
[2024-02-16 05:44] LABS: ANTI-Xa, UFH(UnfractionatedHep 0.72 IU/ml (0.3-0.7)
--- NOTE | 2024-02-16 05:58 | XRay Report ---
EXAM: XR chest 1V portable CLINICAL HISTORY: EVAL LUNG HANSON WHILE INTUBATED [facility] TECHNIQUE: An X-ray image of the chest is obtained in AP portable projection. COMPARISON: 02/15/2024. FINDINGS: Right CVL with tip in SVC. NGT noted in place. Interval insertion of ETT with its tip lying 2.6 cm above the daina (Low position). Pulmonary Parenchyma: Interval stable course of patchy air space opacities and reticular thickening in left lung lower zone. Unchanged right lung lower zone inhomogeneous opacities. Prominent bilateral parahilar markings. Bilateral CP angles are obscured suggesting pleural effusion. Heart and Mediastinum: Heart size and shape are normal. No mediastinal widening or masses. No hilar or mediastinal lymphadenopathy. Bony Thorax: Bilateral shoulder replacement prosthesis. Mild spondylotic changes in the thoracic spine. The bony thorax appears intact without fractures or deformities. Soft Tissues: Soft tissues overlying the chest wall are unremarkable IMPRESSION: 1. Interval stable course of patchy air space opacities and reticular thickening in left lung lower zone. 2. Unchanged right lung lower zone inhomogeneous opacities. 3. Interval insertion of ETT with its tip lying 2.6 cm above the daina (Low position), needs readjustment. 4. Unchanged rest of the study. 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 Electronically signed by Ragini Solis 02-16-2024 05:57 AM
[2024-02-16] MEDS: PEPTAMEN INTENSE VHP 1.0 CAL 1,000 ML BAG OG SCH (06:06)
[2024-02-16] MEDS: fentaNYL BOLUS from BAG IV PRN (06:19)
[2024-02-16] MEDS: PROPOFOL BOLUS FROM BAG IV PRN (06:19)
--- NOTE | 2024-02-16 08:48 | Critical Care Progress Note ---
Date of Service February 16, 2024 Assessment & Plan (1) Septic shock: (2) Hyponatremia: (3) Peripheral vascular disease: (4) Diabetes mellitus, type 2: (5) HTN (hypertension): (6) COPD (chronic obstructive pulmonary disease): (7) Lung cancer: (8) Anxiety: (9) Respiratory failure, acute and chronic: (10) [place] (acute kidney injury): Plan Reason Critically Ill: 73-year-old female with past medical history significant for COPD, lung cancer (undergoing treatment with chemotherapy), anxiety and depression, peripheral vascular disease, DM type II, HLD, HTN presents to the ICU with septic shock likely from pulmonary source, currently requiring vasopressor support with Levophed drip. Neuro - [facility] ICU: Negative Cardiac - --Right upper extremity DVT with high likelihood of pulmonary emboli Heparin started 02/14/2024 Given patient's creatinine is already elevated and it is not going to change the course of the treatment, CTA will not be ordered S/p shock Likely septic given the multilobar pneumonia Random cortisol will be on the lower side given patient is on chronic prednisone - Patient with elevated troponin, downtrending. Patient started on hydrocortisone 02/11/2024 --Elevated troponin Likely type II PR EKG changes EKG 02/14/[address]ressions on the lateral leads. Patient takes prednisone on a daily basis, will change it to Solu-Medrol while in the hospital Respiratory - -- Vent dependent respiratory failure with acute on chronic hypoxic and hypercapnic respiratory failure Multifactorial Multilobar pneumonia Extubated 02/14/2024, reintubated the night of 02/15/2024 Continue with ventilatory support Keep RASS -1 Daily sedation holidays and SBT's Chlorhexidine mouthwash -- COPD and emphysema - Scheduled nebs, DuoNeb as needed --History of squamous cell carcinoma of the lung On osimertinib CTA chest 02/10/2024 personally reviewed: Patchy opacities appreciated in the left upper lobe with some cavitary lesion Dense consolidative process in the left lower lobe with loculated left-sided pleural effusion Cavitary lesion in the right lower lobe perifissural, right upper lobe linear nodular opacity 3.1 cm x 5 cm Centrilobular and paraseptal emphysema appreciated bilaterally Moderate hiatal hernia Significant mediastinal lymphadenopathy GI - Probable GI bleed Patient with positive Hemoccult, no significant melena per report - GI consulted. They recommend conservative management for the time being RENAL/LYTES - Hyponatremiawith history of SIADH, etiology is most likely Tagrisso Serum osmolality 261, urine osmolality, 375, urine sodium 12 Patient with hypoosmolar hyponatremia with sodium of 122 on admission. -Nephrology on board [place] On CKD Likely prerenal in the setting of hypotension. Baseline creatinine around 1.5 - Avoid nephrotoxins renally adjust medications - Maintain MAP greater than 65 to ensure renal perfusion - Strict I's and O's ENDO - DM type II Continue with ICU hyperglycemic protocol HEME - Acute on chronic anemia S/p 1 unit PRBC on 02/10/2024. Has received multiple transfusions in the past as well Follow-up iron studies Monitor H&H ID - Sepsislikely pulmonary source with left lower lobe consolidation noted on CTA chest, and immunocompromise patient receiving chemotherapy for lung cancer. - BioFire negative, nasal MRSA negative - Urinalysis unremarkable -Blood, sputum as well as bronc culture negative to date --Prophylaxis VTE: Heparin drip GI: Pantoprazole Lines: Right-sided Port-A-Cath, peripheral Diet: Cardiac renal diet Plan: In/out: +667, urine output 650 mL +6.l L since coming to the hospital Chest x-ray from today shows worsening haziness bilaterally more on the right side. Creatinine is still trending up and the urine output has gone down. Patient has been hemodynamically stable. She did not have hypotensive episode for her creatinine to go up like this She probably has a component of pulmonary emboli Repeat H&H given the small drop in hemoglobin I will order CT chest abdomen and pelvis without contrast I think Bumex 2 mg should still be given today even though the creatinine is up. I will discuss this with nephrology as well Patient's Ryne [phone] I have personally spent 40 minutes of critical care time in the direct management of this patient. This is a life/limb threatening event. This includes time spent evaluating patient, direct bedside care, chart review, placing orders, interpretation of diagnostic studies, discussion with consultants, patient, and family members, as well as other required patient management activities. This time is exclusive of all separately billable procedures, and teaching time and separate from and in addition to any other critical care service time. Please note the above document was generated using voice recognition software. It may contain grammatical, syntax or spelling errors. Admission and Anticipated Discharge Date Admission Date: February 10, 2024 Subjective Patient seen and examined at bedside. No acute distress Unfortunately she had to be reintubated late last night for respiratory distress She was on 25 propofol, 50 of fentanyl at time of examination, RASS -1, answering questions appropriately Denied any chest pain, no headache She was breathing with the vent. Getting tube feeds Review of Systems 2 Review of Systems: Unobtainable due to endotracheal tube Physical Exam 2 Physical Exam: Constitutional: No acute distress HEENT: PERRLA, EOMI Respiratory system: Decreased air entry bilaterally, no wheeze, rhonchi, positive crackles bilaterally CVS: S1-S2 positive, no murmurs or gallops Abdomen: Soft, nontender, nondistended, positive bowel sounds x4 Extremities: +2 pulses bilaterally radialis/ dorsalis pedis, no cyanosis, positive pitting edema bilateral lower extremity and +1 pitting edema right upper extremity Neuro: RASS -1, moving all extremities appropriately, answering questions with nodding head Psych: Unable to assess G/U: Positive [place] Skin: no rashes, warm and dry Lymphatic: no cervical or axillary lymphadenopathy Results & Data Results & Data Vital Signs (Past 12 Hours) Vital Signs Temp Pulse Pulse Resp BP Pulse Ox O2 Del Method 02/16/24 07:20 18 02/16/24 05:00 129/64 02/16/24 04:59 82 18 97 02/16/24 04:56 87 18 97 02/16/24 04:38 77 18 99 02/16/24 04:30 103/51 L 02/16/24 04:24 37.0 C 02/16/24 04:00 105/53 L 02/16/24 03:44 81 18 99 02/16/24 03:41 80 18 99 02/16/24 03:20 79 18 99 02/16/24 03:13 19 02/16/24 03:00 128/60 02/16/24 02:44 78 19 99 02/16/24 02:30 77 18 106/48 L 98 02/16/24 02:06 79 21 98 02/16/24 01:41 81/49 L 02/16/24 01:36 81 19 86/48 L 96 02/16/24 01:36 86/48 L 02/16/24 01:31 85/47 L 02/16/24 01:20 82 17 96 02/16/24 01:11 85 24 95 Mechanical Vent 02/16/24 01:03 83 20 132/47 L 96 02/16/24 00:42 85 18 95 02/16/24 00:31 155/71 H 02/16/24 00:15 99 H 18 93 02/16/24 00:06 99 H 18 93 02/16/24 00:00 36.2 C L 02/16/24 00:00 16 02/16/24 00:00 129/73 02/16/24 00:00 100 H 02/15/24 23:55 02/15/24 23:51 102 H 12 91 02/15/24 23:48 101 H 12 91 02/15/24 23:30 101 H 12 149/69 H 91 02/15/24 23:28 147/68 H 02/15/24 23:28 147/68 H 02/15/24 23:27 100 H 12 89 L 02/15/24 23:26 142/77 H 02/15/24 23:24 141/79 H 02/15/24 23:16 135/68 02/15/24 23:12 98 H 12 92 02/15/24 23:10 155/77 H 02/15/24 23:06 95 H 12 153/68 H 90 02/15/24 23:04 139/67 02/15/24 23:03 98 H 13 91 02/15/24 23:02 138/65 02/15/24 23:00 151/63 H 02/15/24 23:00 101 H 17 97 02/15/24 22:58 140/64 02/15/24 22:54 96 H 19 78 L 02/15/24 22:51 88 21 94 02/15/24 22:36 93 H 26 H 93 02/15/24 22:33 94 H 25 H 93 02/15/24 22:30 98 H 30 H 91 02/15/24 22:24 103 H 26 H 72 L 02/15/24 22:18 101 H 25 H 89 L Nasal Cannula 02/15/24 22:01 140/54 L 02/15/24 22:00 94 H 25 H 92 02/15/24 21:48 92 H 27 H 93 02/15/24 21:33 93 H 23 93 02/15/24 21:27 92 H 23 90 02/15/24 21:24 90 25 H 92 02/15/24 21:21 92 H 22 92 02/15/24 21:10 150/65 H 02/15/24 21:03 93 H 21 94 02/15/24 21:00 95 H 25 H 150/65 H 91 02/15/24 21:00 36.6 C O2 Flow Rate FiO2 02/16/24 07:20 50 02/16/24 05:00 02/16/24 04:59 02/16/24 04:56 02/16/24 04:38 02/16/24 04:30 02/16/24 04:24 02/16/24 04:00 02/16/24 03:44 02/16/24 03:41 02/16/24 03:20 02/16/24 03:13 60 02/16/24 03:00 02/16/24 02:44 02/16/24 02:30 02/16/24 02:06 02/16/24 01:41 02/16/24 01:36 02/16/24 01:36 02/16/24 01:31 02/16/24 01:20 02/16/24 01:11 80 02/16/24 01:03 02/16/24 00:42 02/16/24 00:31 02/16/24 00:15 02/16/24 00:06 02/16/24 00:00 02/16/24 00:00 02/16/24 00:00 02/16/24 00:00 02/15/24 23:55 80 02/15/24 23:51 02/15/24 23:48 02/15/24 23:30 02/15/24 23:28 02/15/24 23:28 02/15/24 23:27 02/15/24 23:26 02/15/24 23:24 02/15/24 23:16 02/15/24 23:12 80 02/15/24 23:10 02/15/24 23:06 02/15/24 23:04 02/15/24 23:03 02/15/24 23:02 02/15/24 23:00 02/15/24 23:00 02/15/24 22:58 02/15/24 22:54 02/15/24 22:51 02/15/24 22:36 02/15/24 22:33 02/15/24 22:30 02/15/24 22:24 02/15/24 22:18 15 02/15/24 22:01 02/15/24 22:00 02/15/24 21:48 02/15/24 21:33 02/15/24 21:27 02/15/24 21:24 02/15/24 21:21 02/15/24 21:10 02/15/24 21:03 02/15/24 21:00 02/15/24 21:00 Laboratory Results 02/16/24 04:13 02/16/24 04:13 Coding Level of Care Code 46805 CRITICAL CARE 1ST 30-74M Diagnoses Septic shock A41.9; R65.21 Hyponatremia E87.1 Peripheral vascular disease I73.9 Diabetes mellitus, type 2 E11.9 HTN (hypertension) I10 COPD (chronic obstructive pulmonary disease) J44.9 Lung cancer C34.90 Anxiety F41.9 Respiratory failure, acute and chronic J96.21 Respiratory failure complication: hypoxia [place] (acute kidney injury) N17.9 (9) Respiratory failure, acute and chronic Respiratory failure complication: hypoxia Qualified Code(s): J96.21 - Acute and chronic respiratory failure with hypoxia
--- NOTE | 2024-02-16 09:31 | Hospitalist Progress Note ---
Date of Service February 16, 2024 Assessment & Plan (1) Encephalopathy: Plan: 73-year-old lady with PMH of PVD s/p surgery, moderate MR [TTE 2021], atrial septal aneurysm, lung adenocarcinoma on Tagrisso, squamous cell carcinoma of the lung on chemotherapy, COPD, DM2 on oral meds, CKD [baseline creatinine of 1.6- 1.7], chronic hyponatremia secondary to SIADH, chronic anemia [baseline hemoglobin of 9], GERD, cervical intraepithelial neoplasm status post surgery, migraine, anxiety/mood disorder, ongoing tobacco abuse was brought to the ED with complaint of not feeling well for the last few weeks, not eating well and increasingly getting weak in the last few days, patient fell at home from being dizzy about 3 days ago TAKER AWAY and has been sleeping all day and not urinating much. Patient also noted to have cough with shortness of breath, had been complaining of abdominal discomfort but denied black or bloody stool. Multifocal pneumonia Severe sepsis with shock in an immunocompromised patient Acute Hypoxic respiratory failure Metabolic encephalopathy Possible adrenal insufficiency: given intermittent Decadron Rx during chemotherapy. Random cortisol wnl. Pt on hydrocortisone in ICU. Acute right upper extremity DVT Patient presenting with cough and shortness of breath, had systolic blood pressure in 70s. Results of admitting CXR and CTA chest reviewed.Concerning for multifocal pneumonia Patient was admitted to ICU for vasopressor support. Patient was intubated on 02/10 due to progressive hypoxia/agitation Patient underwent bronchoscopy after intubation; thick grayish-white secretions appreciated in the trachea, daina and predominantly in bilateral lower lobe and left upper lobe. Bronchoalveolar lavage was obtained Patient extubated successfully on 02/13; However patient required reintubation on 02/15 due to respiratory stress. Noticed to have right upper extremity swelling on 02/13; Venous duplex shows; DVT in right internal jugular, subclavian and axillary vein;On heparin drip; continue. Continue on Zosyn and doxycycline; plan to treat for 7 days On hydrocortisone due to possible relative adrenal insufficiency; taperdown Blood culture negative till date Acute kidney injury over CKD Baseline creatinine around 1.6-1.8, admitting creatinine of 2.8; Likely ischemic ATN given septic shock, anemia. Trial of Bumex as per ICU on 02/12 and 02/13. Nephrology on board. Acute on chronic hyponatremia: Patient with chronic hyponatremia secondary to SIADH. Sodium level around 130. Admitting sodium level of 122. Sodium slowly improving, currently at 136. Acute on chronic anemia: Baseline hemoglobin around 9, admitting hemoglobin of 6.9, FOBT done in the ED was positive. Status post 2 unit PRBC, currently hemoglobin around 8 GI on board, continue with PPI, no plan for current intervention. Monitor H&H, transfuse for hemoglobin less than 7. Currently on heparin drip for DVT Type II NSTEMI: Patient with elevated troponin at presentation, down trended. EKG with no acute ST or T changes. Echo with EF of 60 to 65%, LV systolic function normal, no regional wall motion abnormalities of LV noted. Demand ischemia secondary to acute illness. Continue telemetry. Right ankle fracture: Right ankle x-ray with age-indeterminate fracture of proximal tip of the fifth metatarsal tubercle. Examination does not reveal any deformity/pain. No hx of trauma Other chronic medical conditions: Continue with/resume home meds as and when abl e. Two lung primary malignancies ongoing chemotherapy/Tagrisso Rx: Hold Rx due to acute illness. CTAP with concern for pelvic bone metastasis, will need follow up with her oncologist. hx PVD status post stent moderate MR (TTE 2021) atrial septal aneurysm as per records DM2 on oral medications, well-controlled as of recent hemoglobin A1c of 5.02 July 2023 ongoing tobacco abuse DVT prophylaxis. heparin drip Full code Time spent evaluating patient, direct bedside care, chart review, placing orders, interpretation of diagnostic studies, as well as other required patient management activities is 50 minutes Please note the above document was generated using voice recognition software. It may contain grammatical, syntax or spelling errors. Any formal questions or concerns about the content, text or information contained within the body of this dictation should be directly addressed to the provider for clarification Admission and Anticipated Discharge Date Admission Date: February 10, 2024 Subjective Patient seen and examined at bedside Last evening, patient got tachypneic and was in respiratory distress for which she was intubated again Hemodynamically stable; sedated Review of Systems Review of Systems: Unobtainable due to reduced consciousness Physical Exam Physical Exam: Constitutional: Intubated and mechanically ventilated. Sedated Respiratory: Bilateral mechanical breath sound. Cardiovascular: S1-S2, normal murmur. Abdomen: Soft, nondistended. Musculoskeletal: no cyanosis or clubbing, extremities motor strength 5/5. pitting edema present Skin: no rashes, warm and dry normal turgor Neurologic: PERRLA, moves all extremities Results & Data Results & Data Vital Signs (Past 12 Hours) Vital Signs Temp Pulse Pulse Resp BP Pulse Ox O2 Del Method 02/16/24 09:05 18 02/16/24 07:20 18 02/16/24 05:00 129/64 02/16/24 04:59 82 18 97 02/16/24 04:56 87 18 97 02/16/24 04:38 77 18 99 02/16/24 04:30 103/51 L 02/16/24 04:24 37.0 C 02/16/24 04:00 105/53 L 02/16/24 03:44 81 18 99 02/16/24 03:41 80 18 99 02/16/24 03:20 79 18 99 02/16/24 03:13 19 02/16/24 03:00 128/60 02/16/24 02:44 78 19 99 02/16/24 02:30 77 18 106/48 L 98 02/16/24 02:06 79 21 98 02/16/24 01:41 81/49 L 02/16/24 01:36 81 19 86/48 L 96 02/16/24 01:36 86/48 L 02/16/24 01:31 85/47 L 02/16/24 01:20 82 17 96 02/16/24 01:11 85 24 95 Mechanical Vent 02/16/24 01:03 83 20 132/47 L 96 02/16/24 00:42 85 18 95 02/16/24 00:31 155/71 H 02/16/24 00:15 99 H 18 93 02/16/24 00:06 99 H 18 93 02/16/24 00:00 36.2 C L 02/16/24 00:00 16 02/16/24 00:00 129/73 02/16/24 00:00 100 H 02/15/24 23:55 02/15/24 23:51 102 H 12 91 02/15/24 23:48 101 H 12 91 02/15/24 23:30 101 H 12 149/69 H 91 02/15/24 23:28 147/68 H 02/15/24 23:28 147/68 H 02/15/24 23:27 100 H 12 89 L 02/15/24 23:26 142/77 H 02/15/24 23:24 141/79 H 02/15/24 23:16 135/68 02/15/24 23:12 98 H 12 92 02/15/24 23:10 155/77 H 02/15/24 23:06 95 H 12 153/68 H 90 02/15/24 23:04 139/67 02/15/24 23:03 98 H 13 91 02/15/24 23:02 138/65 02/15/24 23:00 151/63 H 02/15/24 23:00 101 H 17 97 02/15/24 22:58 140/64 02/15/24 22:54 96 H 19 78 L 02/15/24 22:51 88 21 94 02/15/24 22:36 93 H 26 H 93 02/15/24 22:33 94 H 25 H 93 02/15/24 22:30 98 H 30 H 91 02/15/24 22:24 103 H 26 H 72 L 02/15/24 22:18 101 H 25 H 89 L Nasal Cannula 02/15/24 22:01 140/54 L 02/15/24 22:00 94 H 25 H 92 02/15/24 21:48 92 H 27 H 93 02/15/24 21:33 93 H 23 93 O2 Flow Rate FiO2 02/16/24 09:05 40 02/16/24 07:20 50 02/16/24 05:00 02/16/24 04:59 02/16/24 04:56 02/16/24 04:38 02/16/24 04:30 02/16/24 04:24 02/16/24 04:00 02/16/24 03:44 02/16/24 03:41 02/16/24 03:20 02/16/24 03:13 60 02/16/24 03:00 02/16/24 02:44 02/16/24 02:30 02/16/24 02:06 02/16/24 01:41 02/16/24 01:36 02/16/24 01:36 02/16/24 01:31 02/16/24 01:20 02/16/24 01:11 80 02/16/24 01:03 02/16/24 00:42 02/16/24 00:31 02/16/24 00:15 02/16/24 00:06 02/16/24 00:00 02/16/24 00:00 02/16/24 00:00 02/16/24 00:00 02/15/24 23:55 80 02/15/24 23:51 02/15/24 23:48 02/15/24 23:30 02/15/24 23:28 02/15/24 23:28 02/15/24 23:27 02/15/24 23:26 02/15/24 23:24 02/15/24 23:16 02/15/24 23:12 80 02/15/24 23:10 02/15/24 23:06 02/15/24 23:04 02/15/24 23:03 02/15/24 23:02 02/15/24 23:00 02/15/24 23:00 02/15/24 22:58 02/15/24 22:54 02/15/24 22:51 02/15/24 22:36 02/15/24 22:33 02/15/24 22:30 02/15/24 22:24 02/15/24 22:18 15 02/15/24 22:01 02/15/24 22:00 02/15/24 21:48 02/15/24 21:33
--- NOTE | 2024-02-16 10:14 | CT Scan Report ---
CT OF THE CHEST WITHOUT IV CONTRAST CLINICAL HISTORY: Worsening hypoxia. Lung cancer. COMPARISON STUDY: Chest radiograph performed earlier today. Chest CT February 10, 2024. CT DOSE: 2221.55 mGy.cm TECHNIQUE: Axial images of the chest were obtained without IV contrast. Images were reviewed in the axial, sagittal, and coronal planes. IV contrast was not administered for this examination. Automat ed exposure control was utilized for the study. A dose lowering technique was utilized adhering to t he principles of ALARA. FINDINGS: A right internal jugular [id number] is in place. Tip of endotracheal tube is just above the daina. Tip of nasogastric tube is within the stomach. There is no pneumothorax. Small to modera te right and small left pleural effusions have increased since CT of February 10, 2024. Prominent med iastinal lymph nodes are unchanged. These are suboptimally assessed on unenhanced exam. There is a mo derate sized hiatal hernia. Underlying emphysema. Interlobular septal thickening is present. A cavita ry right lower lobe lesion measuring 4.3 x 3.5 cm is again noted. This lesion is spiculated with irre gular thickened wall. Right upper lobe irregular density measures 4.2 cm. This may also be neoplastic . Multiple cavitary left upper lobe nodules are again noted. These are stable to slightly improved si nce prior exam. Extensive left upper lobe and left lower lobe consolidation has progressed. Right conrad g airspace opacities have also increased. The abdomen and pelvis CT will be reported separately. Ther e is body wall edema. IMPRESSION: 1. Satisfactory positioning of the endotracheal and nasogastric tubes. 2. Progression of extensive bilateral airspace opacities, greater within the left lung. The findings suggest pneumonia or aspiration pneumonitis. 3. Redemonstration of several suspicious right lung lesions, including a spiculated cavitary 4.3 x 3. 5 cm lesion suggestive of primary lung neoplasm. 4. Stable to slight improvement in multiple irregular left upper lobe nodules, several of which are c avitary. These may be infectious or neoplastic. 5. Persistent interlobular septal thickening. This favors pulmonary edema although lymphangitic tumor could appear similar. 6. Increase in small to moderate right and small left pleural effusions. No pneumothorax. ACT 112: Negative or not required by law. Electronically signed by: Abel Roberson M.D. 02/16/2024 10:12 AM
--- NOTE | 2024-02-16 10:19 | CT Scan Report ---
CT OF THE ABDOMEN AND PELVIS WITHOUT CONTRAST CLINICAL HISTORY: R/o Bleed COMPARISON STUDY: CT of the abdomen and pelvis February 10, 2024. TECHNIQUE: Axial images of the abdomen and pelvis were obtained without IV contrast. Images were revi ewed in the axial, sagittal, and coronal planes. Automated exposure control was utilized for the nicole dy. A dose lowering technique was utilized adhering to the principles of ALARA. FINDINGS: Please note that the chest CT will be reported separately. Bilateral pleural effusions with extensive lower lung airspace opacities are better depicted on that exam. Tip of nasogastric tube is within the body of the stomach. Evaluation of the abdomen and pelvis is suboptimal on this unenhance d examination. No retroperitoneal hematoma is present. There is no hemoperitoneum. Unenhanced images of the liver, spleen, adrenal glands, kidneys and pancreas are unremarkable with the exception of mod erate left renal atrophy. There is a 4.3 x 4 cm infrarenal abdominal aortic aneurysm with extensive a ortoiliac atherosclerotic plaque. There is no evidence for rupture. Left common iliac artery stent is in place. Images of the pelvis are degraded by streak artifact from bilateral hip arthroplasties. Shad dy wall edema is present. There is no evidence for a bowel obstruction. No bowel wall thickening is i dentified on unenhanced exam. There is colonic diverticulosis without evidence for acute diverticulit is. Moderate-sized hilar hernia. IMPRESSION: 1. No retroperitoneal hematoma. No hemoperitoneum. 2. No bowel obstruction. 3. 4.4 cm infrarenal abdominal aortic aneurysm. Extensive aortoiliac atherosclerotic plaque. No evide nce for rupture. 4. Anasarca. 5. Bilateral pleural effusions and extensive lower lung airspace opacity suggestive of pneumonia or a spiration pneumonitis, better depicted on the chest CT which will be reported separately. ACT 112: Negative or not required by law. Electronically signed by: Abel Roberson M.D. 02/16/2024 10:17 AM
[2024-02-16 12:27] LABS: Hematocrit (blood only) 22.8 % (37.0-47.0); Hemoglobin 7.6 g/dl (12.0-16.0)
[2024-02-16 12:38] LABS: ANTI-Xa, UFH(UnfractionatedHep 0.43 IU/ml (0.3-0.7)
[2024-02-16] MEDS: BUMETANIDE 3 MG in SYRINGE 0 ML IV ONE (12:39)
[2024-02-16] MEDS: VENLAFAXINE HCL 37.5 MG TAB PO SCH (12:40)
--- NOTE | 2024-02-16 14:44 | Nephrology Progress Note ---
Date of Service February 16, 2024 Assessment & Plan (1) Acute kidney injury (nontraumatic): Plan: No longer oliguric stage 3 (d/t UOP) [place] on CKD 4 (baseline creatinine 1.6-2.0 in 2023 though more 1.6-1.7 w/ stable weight December). presented with creatinine 2.8 > 2.6 > 2.7> 2.5 this AM. s/p IV contrast for CTA chest 02/09. reviewed OP records > no prior bicarb drops or e/o metabolic acidosis [employer]. she has improving AG now and no acidemia; doubt role for Farxiga related ketoacidosis. presume ischemic ATN given hypotension, anemia and IV contrast. -Slow decline in renal fucntions contineu, Cr 2.9 Today. UOP tailing off and she has been intubated again. Sodium has dropped to 133. -Will give Bumex 3 mg today -Replace K to keep levels> 4.0. -no need for IVF -daily bmp ->>>> Unlikely to need dialysis this admission, assuming other things stable; she remains critically ill however; dialysis consent obtained from 02/10 and on chart (2) Hyponatremia: Plan: improving and no longer severe but moderate hyponatremia. presented w/ sNa 122 and dropped to 118 by 0100 02/10. 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 -sodium 133 today -monitor daily -no specific therapy at this time other than minimizing further volume overload and seeing if she can tolerate diuretics (3) CKD (chronic kidney disease) stage 4, GFR 15-29 ml/min: Plan: CKD 4 though past month w/ some improvement in creatinine (more 1.6-1.7) and wt maintained. follows w/ Dr Ellis (4) Hypomagnesemia: Plan: mild; on platin based therapy >> monitor daily; (5) Respiratory failure, acute and chronic: Plan: per pulmonary; failed bipap; multifactorial from copd, emphysema, multilobar pneumonia, lung ca x 2 types > f/u bronch results -no longer oliguric, now on 5l oxygen. (6) Lung cancer: Plan: on VEGF/TK inhibitor AND taxol / carboplatin/ ketruda and on intermittent decadron (last tx 01/22) (7) Pneumonia: Plan: severe; multilobar; cavitary lesions on imaging RLL, JAKE zosyn/doxy Admission and Anticipated Discharge Date Admission Date: February 10, 2024 Subjective she had to be reintubated late last night for respiratory distrese She was breathing with the vent. Getting tube feeds Review of Systems 2 Review of Systems: Intubated Results & Data Vital Signs (Past 12 Hours) Vital Signs Temp Pulse Resp BP Pulse Ox O2 Del Method FiO2 02/16/24 10:09 80 19 94 40 02/16/24 09:06 83 18 95 Mechanical Vent 0.5 02/16/24 09:05 18 40 02/16/24 09:00 139/59 L 02/16/24 08:45 85 18 95 02/16/24 08:45 123/58 L 02/16/24 08:45 123/58 L 02/16/24 08:30 88 19 95 02/16/24 08:30 138/59 L 02/16/24 08:27 96 H 18 95 02/16/24 08:19 Mechanical Vent 0.5 02/16/24 08:15 132/61 02/16/24 08:15 132/61 02/16/24 08:15 132/61 02/16/24 08:15 132/61 02/16/24 08:12 85 18 95 02/16/24 08:10 0.5 02/16/24 08:06 84 18 95 02/16/24 08:00 115/56 L 02/16/24 07:51 83 18 95 02/16/24 07:45 104/50 L 02/16/24 07:36 82 18 96 02/16/24 07:30 105/55 L 02/16/24 07:30 105/55 L 02/16/24 07:21 78 18 96 02/16/24 07:20 18 50 02/16/24 07:18 83 18 99 02/16/24 07:15 119/57 L 02/16/24 07:15 119/57 L 02/16/24 07:15 119/57 L 02/16/24 07:12 79 18 98 02/16/24 07:06 77 18 97 02/16/24 07:00 114/55 L 02/16/24 05:00 129/64 02/16/24 04:59 82 18 97 02/16/24 04:56 87 18 97 02/16/24 04:38 77 18 99 02/16/24 04:30 103/51 L 02/16/24 04:24 37.0 C 02/16/24 04:00 105/53 L 02/16/24 03:44 81 18 99 02/16/24 03:41 80 18 99 02/16/24 03:20 79 18 99 02/16/24 03:13 19 60 02/16/24 03:00 128/60 02/16/24 02:44 78 19 99 Laboratory Results 02/16/24 11:58 02/16/24 04:13 (5) Respiratory failure, acute and chronic Respiratory failure complication: hypoxia Qualified Code(s): J96.21 - Acute and chronic respiratory failure with hypoxia (6) Lung cancer Laterality: unspecified laterality Lung location: unspecified part of lung Qualified Code(s): C34.90 - Malignant neoplasm of unspecified part of unspecified bronchus or lung (7) Pneumonia Laterality: left Lung location: lower lobe of lung Pneumonia type: due to unspecified organism Qualified Code(s): J18.9 - Pneumonia, unspecified organism
[2024-02-16] MEDS: FORMOTEROL 20 MCG/2 ML VIAL INH SCH (19:29)
[2024-02-16] MEDS: BUDESONIDE 0.5 MG/2 ML VIAL (PULMICORT) NEB SCH (19:29)
[2024-02-16 20:41] LABS: BUN Creatinine Ratio 23.8 (10-20); Calcium 8.4 mg/dl (8.6-10.3); Creatinine Clr Calc Pharmacy 14.9 ml/min; Potassium 3.8 mmol/L (3.5-5.1)
[2024-02-17] MEDS: INSULIN ASPART PER UNIT CHARGE SC SCH (00:40)
[2024-02-17 05:04] LABS: Basophils # (auto) 0.02 K/uL (0.00-0.20); Basophils % (auto) 0.2 %; Eosinophils % (auto) 0.9 %; Hematocrit (blood only) 22.8 % (37.0-47.0); Hemoglobin 7.5 g/dl (12.0-16.0); Immature Granulocytes # (auto) 0.24 K/uL (0.01-0.20); Immature Granulocytes % (auto) 2.1 %; Lymphocytes # (auto) 1.18 K/uL (1.20-3.40); Lymphocytes % (auto) 10.5 %; Mean Corpuscular Hemoglobin 28.4 pg (25.0-34.0); Mean Corpuscular Hgb Conc 32.9 g/dL (32.0-36.0); Mean Corpuscular Volume 86.4 fL (80.0-100.0); Mean Platelet Volume 10.4 fL (9.4-12.4); Monocytes # (auto) 0.26 K/uL (0.11-0.59); Monocytes % (auto) 2.3 %; Neutrophils # (auto) 9.42 K/uL (1.40-6.50); Platelet Count 182 K/uL (130-400); RDW Coefficient of Variation 18.7 % (11.5-14.5); Red Blood Count 2.64 M/uL (4.20-5.40); White Blood Count 11.22 K/ul (4.8-10.8)
[2024-02-17 05:19] LABS: BUN Creatinine Ratio 24.7 (10-20); Calcium 7.6 mg/dl (8.6-10.3); Creatinine Clr Calc Pharmacy 14.5 ml/min; Magnesium 1.9 mg/dl (1.7-2.4); Phosphorus 6.8 mg/dl (2.5-4.9); Potassium 3.7 mmol/L (3.5-5.1)
[2024-02-17 05:37] LABS: Echinocytes 1+; Polychromasia 1+
[2024-02-17 05:46] LABS: ANTI-Xa, UFH(UnfractionatedHep 0.42 IU/ml (0.3-0.7)
--- NOTE | 2024-02-17 09:13 | Critical Care Progress Note ---
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 Neuro -currently intubated and sedated. Sedation break this a.m. with SBT to assess for vent liberation. Apparently significant anxiety component although again with the bilateral pleural effusions and parenchymal lung disease, the patient may not do well without mechanical ventilatory support. Would like to define goals of therapy prior to pursuing another trial of extubation and vent liberation Cardiac -empirically being treated for PE. CTA on presentation showed no pulmonary embolism. Off vasopressors currently. Echo showed significant RV strain and pulmonary hypertension of unclear etiology. Continue Respiratory -intubated due to hypoxemic hypercarbic respiratory failure and failed a trial of extubation requiring reintubation. Likely multifactorial due to combinations of bilateral pleural effusions as well as parenchymal lung disease. Cannot rule out potential ICI related pulmonary toxicity as her bronchoscopy specimens are negative. These nodules may also represent progr ession of disease. She could have lymphangitic spread as well. Cytology was negative. Will pursue high-dose steroids to see whether or not this might be an ICI toxicity GI -questionable GI bleed. Hemoglobin stable currently. Hold additional transfusion was hemoglobin less than 7. Appreciate GI recommendations. Continue tube feeding RENAL/LYTES -progressive renal insufficiency this morning. Discussed with nephrology. Given her advanced lung cancer, she is not a candidate for renal replacement in the event kidney function continues to deteriorate and they would recommend palliative care. -continue for now given need to trend intake and output ENDO - glycemic control per protocol HEME -patient has a history of 2 lung cancers. Her initial lung cancer was diagnosed in 2021, non-small cell lung cancer, favor adeno. She was treated with Tagrisso, however dose was reduced due to potential toxicity. She in November of this year was found to have a new mass which was biopsy-proven squamous cell carcinoma. She was treated with CarboTaxol and pembrolizumab. Is unclear when she received her last dose. The oncology notes indicate at least a stage IIIb. She is not felt to be a candidate for radiation therapy. The patient's current clinical condition would likely preclude additional chemotherapy given possibility of ICI toxicity and her kidney disease. Will pursue palliative care consultation to assist in discussion with family members ID -patient is completed a full course of antibiotics. Cultures have remained negative. --Prophylaxis VTE: Heparin drip GI: Pantoprazole Lines: Right-sided Port-A-Cath, peripheral Patient's Ryne [phone] I have personally spent 52 minutes of critical care time in the direct management of this patient. This is a life/limb threatening event. This includes time spent evaluating patient, direct bedside care, chart review, placing orders, interpretation of diagnostic studies, discussion with consultants, patient, and family members, as well as other required patient management activities. This time is exclusive of all separately billable procedures, and teaching time and separate from and in addition to any other critical care service time. Please note the above document was generated using voice recognition software. It may contain grammatical, syntax or spelling errors. Admission and Anticipated Discharge Date Admission Date: February 10, 2024 Subjective Patient seen and examined. EMR reviewed. Discussed with off going hydraulic technician as well as critical care overnight CAROLYN and with bedside critical care nurse and on multidisciplinary rounds Review of Systems Review of Systems: Unobtainable due to endotracheal tube Results & Data Results & Data Vital Signs (Past 12 Hours) Vital Signs Temp Pulse Pulse Resp BP Pulse Ox O2 Del Method 02/17/24 08:00 02/17/24 08:00 Mechanical Vent 02/17/24 08:00 76 02/17/24 07:11 76 24 95 02/17/24 07:10 76 24 95 Mechanical Vent 02/17/24 07:00 36.7 C 02/17/24 06:30 104/58 L 02/17/24 06:21 66 18 98 02/17/24 06:06 66 18 106/59 L 97 02/17/24 05:45 66 18 98 02/17/24 05:30 106/57 L 02/17/24 05:24 67 18 98 02/17/24 05:00 66 18 104/56 L 97 02/17/24 04:29 36.3 C L 02/17/24 04:00 66 18 103/56 L 97 02/17/24 03:30 109/60 02/17/24 03:26 68 18 98 02/17/24 03:21 67 18 96 02/17/24 03:03 67 18 99/56 L 97 02/17/24 02:30 122/64 02/17/24 02:30 74 18 98 02/17/24 02:06 70 18 97 02/17/24 01:30 100/54 L 02/17/24 01:21 67 18 96 02/17/24 01:09 67 18 101/46 L 96 02/17/24 00:54 68 18 96 02/17/24 00:33 69 18 101/47 L 96 02/17/24 00:27 36.4 C L 02/17/24 00:24 70 18 97 02/17/24 00:15 73 18 97 02/17/24 00:00 72 18 100/52 L 96 02/17/24 00:00 68 18 96 02/16/24 23:51 72 18 95 02/16/24 23:33 69 18 102/51 L 96 02/16/24 23:21 68 18 96 02/16/24 23:18 68 18 97 02/16/24 23:12 69 18 96 02/16/24 23:02 71 02/16/24 22:54 71 18 97 02/16/24 22:30 72 18 106/58 L 96 02/16/24 22:18 72 18 95 02/16/24 21:57 70 18 97 02/16/24 21:33 72 18 98 02/16/24 21:30 119/62 02/16/24 21:27 72 18 98 02/16/24 21:15 72 18 97 FiO2 02/17/24 08:00 30 02/17/24 08:00 02/17/24 08:00 02/17/24 07:11 30 02/17/24 07:10 35 02/17/24 07:00 02/17/24 06:30 02/17/24 06:21 02/17/24 06:06 02/17/24 05:45 02/17/24 05:30 02/17/24 05:24 02/17/24 05:00 02/17/24 04:29 02/17/24 04:00 02/17/24 03:30 02/17/24 03:26 35 02/17/24 03:21 02/17/24 03:03 02/17/24 02:30 02/17/24 02:30 02/17/24 02:06 02/17/24 01:30 02/17/24 01:21 02/17/24 01:09 02/17/24 00:54 02/17/24 00:33 02/17/24 00:27 02/17/24 00:24 02/17/24 00:15 02/17/24 00:00 02/17/24 00:00 35 02/16/24 23:51 02/16/24 23:33 02/16/24 23:21 02/16/24 23:18 02/16/24 23:12 02/16/24 23:02 02/16/24 22:54 02/16/24 22:30 02/16/24 22:18 02/16/24 21:57 02/16/24 21:33 02/16/24 21:30 02/16/24 21:27 02/16/24 21:15 Critical Care Results & Data Vital Signs (Past 12 Hours) Vital Signs Temp Pulse Pulse Resp BP Pulse Ox O2 Del Method 02/17/24 08:00 02/17/24 08:00 Mechanical Vent 02/17/24 08:00 76 02/17/24 07:11 76 24 95 02/17/24 07:10 76 24 95 Mechanical Vent 02/17/24 07:00 36.7 C 02/17/24 06:30 104/58 L 02/17/24 06:21 66 18 98 02/17/24 06:06 66 18 106/59 L 97 02/17/24 05:45 66 18 98 02/17/24 05:30 106/57 L 02/17/24 05:24 67 18 98 02/17/24 05:00 66 18 104/56 L 97 11/25/24 04:29 36.3 C L 02/17/24 04:00 66 18 103/56 L 97 02/17/24 03:30 109/60 02/17/24 03:26 68 18 98 02/17/24 03:21 67 18 96 02/17/24 03:03 67 18 99/56 L 97 02/17/24 02:30 122/64 02/17/24 02:30 74 18 98 02/17/24 02:06 70 18 97 02/17/24 01:30 100/54 L 02/17/24 01:21 67 18 96 02/17/24 01:09 67 18 101/46 L 96 02/17/24 00:54 68 18 96 02/17/24 00:33 69 18 101/47 L 96 02/17/24 00:27 36.4 C L 02/17/24 00:24 70 18 97 02/17/24 00:15 73 18 97 02/17/24 00:00 72 18 100/52 L 96 02/17/24 00:00 68 18 96 02/16/24 23:51 72 18 95 02/16/24 23:33 69 18 102/51 L 96 02/16/24 23:21 68 18 96 02/16/24 23:18 68 18 97 02/16/24 23:12 69 18 96 02/16/24 23:02 71 02/16/24 22:54 71 18 97 02/16/24 22:30 72 18 106/58 L 96 02/16/24 22:18 72 18 95 02/16/24 21:57 70 18 97 02/16/24 21:33 72 18 98 02/16/24 21:30 119/62 02/16/24 21:27 72 18 98 02/16/24 21:15 72 18 97 FiO2 02/17/24 08:00 30 02/17/24 08:00 02/17/24 08:00 02/17/24 07:11 30 02/17/24 07:10 35 02/17/24 07:00 02/17/24 06:30 02/17/24 06:21 02/17/24 06:06 02/17/24 05:45 02/17/24 05:30 02/17/24 05:24 02/17/24 05:00 02/17/24 04:29 02/17/24 04:00 02/17/24 03:30 02/17/24 03:26 35 02/17/24 03:21 02/17/24 03:03 02/17/24 02:30 02/17/24 02:30 02/17/24 02:06 02/17/24 01:30 02/17/24 01:21 02/17/24 01:09 02/17/24 00:54 02/17/24 00:33 02/17/24 00:27 02/17/24 00:24 02/17/24 00:15 02/17/24 00:00 02/17/24 00:00 35 02/16/24 23:51 02/16/24 23:33 02/16/24 23:21 02/16/24 23:18 02/16/24 23:12 02/16/24 23:02 02/16/24 22:54 02/16/24 22:30 02/16/24 22:18 02/16/24 21:57 02/16/24 21:33 02/16/24 21:30 02/16/24 21:27 02/16/24 21:15 Lab & Micro Results (Past 24 Hours) RBC 2.64 M/uL (4.20-5.40) L 02/17/24 WBC 11.22 K/ul (4.8-10.8) H 02/17/24 Hgb 7.5 g/dl (12.0-16.0) L 02/17/24 Hct 22.8 % (37.0-47.0) L 02/17/24 MCV 86.4 fL (80.0-100.0) 02/17/24 MCH 28.4 pg (25.0-34.0) 02/17/24 MCHC 32.9 g/dL (32.0-36.0) 02/17/24 RDW Standard Deviation 59.0 fL (36.4-46.3) H 02/17/24 RDW Coefficient of Variation 18.7 % (11.5-14.5) H 02/17/24 Plt Count 182 K/uL (130-400) 02/17/24 MPV 10.4 fL (9.4-12.4) 02/17/24 Neutrophils (%) (Auto) 84.0 % 02/17/24 Lymphocytes (%) (Auto) 10.5 % 02/17/24 Monocytes # (Auto) 0.26 K/uL (0.11-0.59) 02/17/24 Eosinophils # (Auto) 0.10 K/uL (0.00-0.50) 02/17/24 Immature Granulocyte % (Auto) 2.1 % 02/17/24 Neutrophils # (Auto) 9.42 K/uL (1.40-6.50) H 02/17/24 Lymphocytes # (Auto) 1.18 K/uL (1.20-3.40) L 02/17/24 Monocytes # (Auto) 0.26 K/uL (0.11-0.59) 02/17/24 Eosinophils # (Auto) 0.10 K/uL (0.00-0.50) 02/17/24 Basophils # (Auto) 0.02 K/uL (0.00-0.20) 02/17/24 Immature Granulocyte # (Auto) 0.24 K/uL (0.01-0.20) H 02/16 Polychromasia 1+ 02/17/24 Echinocytes 1+ 02/17/24 Na 135 mmol/L (136-145) L 02/17/24 K 3.7 mmol/L (3.5-5.1) 02/17/24 Cl 101 mmol/L (98-107) 02/17/24 CO2 20 mmol/L (21-32) L 02/17/24 Anion Gap 14 (3-11) H 02/17/24 BUN 78 mg/dl (6-23) H 02/17/24 Creatinine 3.16 mg/dl (0.6-1.2) H 02/17/24 BUN/Creatinine Ratio 24.7 (10-20) H 02/17/24 Glu 113 mg/dl (70-99(Fasting)) H 02/17/24 Ca 7.6 mg/dl (8.6-10.3) L 02/17/24 Phosphorus Level 6.8 mg/dl (2.5-4.9) H 02/17/24 Mg 1.9 mg/dl (1.7-2.4) 02/17/24 04:23 Calcium Level 7.6 mg/dl (8.6-10.3) L 02/17/24 04:23 Microbiology 02/11/24 11:05 Fungal Smear - Final Ba Lavage,Left Upper Lobe Fungal Culture - Preliminary No yeast or fungus isolated - Report 1, Additional Report to Follow. 02/11/24 11:05 Fungal Smear - Final Ba Lavage,Left Lower Lobe Fungal Culture - Preliminary No yeast or fungus isolated - Report 1, Additional Report to Follow. 02/10/24 17:26 Aerobic Blood Culture - Final Blood No growth in Aerobic bottle after 5 days. Anaerobic Blood Culture - Final No growth in Anaerobic bottle after 5 days. 02/10/24 16:44 Aerobic Blood Culture - Final Blood No growth in Aerobic bottle after 5 days. Anaerobic Blood Culture - Final No growth in Anaerobic bottle after 5 days. Diagnostic Findings (Past 24 Hours) Chest CT 02/16/24 08:47 CT OF THE CHEST WITHOUT IV CONTRAST CLINICAL HISTORY: Worsening hypoxia. Lung cancer. COMPARISON STUDY: Chest radiograph performed earlier today. Chest CT February 10, 2024. CT DOSE: 2221.55 mGy.cm TECHNIQUE: Axial images of the chest were obtained without IV contrast. Images were reviewed in the axial, sagittal, and coronal planes. IV contrast was not administered for this examination. Automated exposure control was utilized for the study. A dose lowering technique was utilized adhering to the principles of ALARA. FINDINGS: A right internal jugular [id number] is in place. Tip of endotracheal tube is just above the daina. Tip of nasogastric tube is within the stomach. There is no pneumothorax. Small to moderate right and small left pleural effusions have increased since CT of February 10, 2024. Prominent mediastinal lymph nodes are unchanged. These are suboptimally assessed on unenhanced exam. There is a moderate sized hiatal hernia. Underlying emphysema. Interlobular septal thickening is present. A cavitary right lower lobe lesion measuring 4.3 x 3.5 cm is again noted. This lesion is spiculated with irregular thickened wall. Right upper lobe irregular density measures 4.2 cm. This may also be neoplastic. Multiple cavitary left upper lobe nodules are again noted. These are stable to slightly improved since prior exam. Extensive left upper lobe and left lower lobe consolidation has progressed. Right lung airspace opacities have also increased. The abdomen and pelvis CT will be reported separately. There is body wall edema. IMPRESSION: 1. Satisfactory positioning of the endotracheal and nasogastric tubes. 2. Progression of extensive bilateral airspace opacities, greater within the left lung. The findings suggest pneumonia or aspiration pneumonitis. 3. Redemonstration of several suspicious right lung lesions, including a spiculated cavitary 4.3 x 3.5 cm lesion suggestive of primary lung neoplasm. 4. Stable to slight improvement in multiple irregular left upper lobe nodules, several of which are cavitary. These may be infectious or neoplastic. 5. Persistent interlobular septal thickening. This favors pulmonary edema although lymphangitic tumor could appear similar. 6. Increase in small to moderate right and small left pleural effusions. No pneumothorax. ACT 112: Negative or not required by law. Electronically signed by: Abel Roberson M.D. 02/16/2024 10:12 AM Abdomen/Pelvis CT 02/16/24 09:12 CT OF THE ABDOMEN AND PELVIS WITHOUT CONTRAST CLINICAL HISTORY: R/o Bleed COMPARISON STUDY: CT of the abdomen and pelvis February 10, 2024. TECHNIQUE: Axial images of the abdomen and pelvis were obtained without IV contrast. Images were reviewed in the axial, sagittal, and coronal planes. Automated exposure control was utilized for the study. A dose lowering technique was utilized adhering to the principles of ALARA. FINDINGS: Please note that the chest CT will be reported separately. Bilateral pleural effusions with extensive lower lung airspace opacities are better depicted on that exam. Tip of nasogastric tube is within the body of the stomach. Evaluation of the abdomen and pelvis is suboptimal on this unenhanced examination. No retroperitoneal hematoma is present. There is no hemoperitoneum. Unenhanced images of the liver, spleen, adrenal glands, kidneys and pancreas are unremarkable with the exception of moderate left renal atrophy. There is a 4.3 x 4 cm infrarenal abdominal aortic aneurysm with extensive aortoiliac atherosclerotic plaque. There is no evidence for rupture. Left common iliac artery stent is in place. Images of the pelvis are degraded by streak artifact from bilateral hip arthroplasties. Body wall edema is present. There is no evidence for a bowel obstruction. No bowel wall thickening is identified on unenhanced exam. There is colonic diverticulosis without evidence for acute diverticulitis. Moderate-sized hilar hernia. IMPRESSION: 1. No retroperitoneal hematoma. No hemoperitoneum. 2. No bowel obstruction. 3. 4.4 cm infrarenal abdominal aortic aneurysm. Extensive aortoiliac atherosclerotic plaque. No evidence for rupture. 4. Anasarca. 5. Bilateral pleural effusions and extensive lower lung airspace opacity suggestive of pneumonia or aspiration pneumonitis, better depicted on the chest CT which will be reported separately. ACT 112: Negative or not required by law. Electronically signed by: Abel Roberson M.D. 02/16/2024 10:17 AM I & O Totals 24 Hours 02/16/24 02/17/24 02/18/24 06:59 06:59 06:59 Intake Total 1426.654 / 2194.825 4203.201 / 1390.201 544.577 / 544.577 Output Total 667 / 667 1180 / 1205 75 / 75 Balance 759.654 / 759.654 140.201 / 185.201 469.577 / 469.577 Cumulative 02/10/24 15:59 thru 02/17/24 08:59 Intake Total 33818.434 Output Total 6134 Balance 7131.434 RT Ventilator Mngmt (Last Documented) Ventilator Ordered Settings Ventilator Support Mode Assist Control 02/17/24 08:00 Respiratory Rate 24 02/17/24 07:11 Ventilator Tidal Volume 430 02/17/24 08:00 Setting Minute Ventilation 7 02/17/24 07:11 Positive End Expiratory 7 02/17/24 08:00 Pressure Fraction of Inspired Oxygen 30 02/17/24 08:00 Peak Inspiratory Flow 43 02/14/24 07:30 Machine Comment vent settings per Dr Mccoy 02/16/24 09:05 Ventilator - PT Measurements Respiratory Rate 24 Exhaled Tidal Volume 430 Minute Ventilation 7 Peak Inspiratory Airway 18 Pressure Plateau Pressure 14 Respiratory Cycle Inspiratory: 1:2.7 Expiratory Ratio Inspiratory Phase Time 0.9 End-Tidal CO2 22 Static Lung Compliance 61.43 Dynamic Lung Compliance 39.09 Normal Static Lung Compliance 48.00 Patient Measurements Comment Peep decreased to +7 and FiO2 decreased to 30% at this time. KRISTA ford. Coding Level of Care Code 51064 CRITICAL CARE 1ST 30-74M Diagnoses Septic shock A41.9; R65.21 Hyponatremia E87.1 Peripheral vascular disease I73.9 Diabetes mellitus, type 2 E11.9 HTN (hypertension) I10 COPD (chronic obstructive pulmonary disease) J44.9 Lung cancer C34.90 Anxiety F41.9 Respiratory failure, acute and chronic J96.21 Respiratory failure complication: hypoxia [place] (acute kidney injury) N17.9 (9) Respiratory failure, acute and chronic Respiratory failure complication: hypoxia Qualified Code(s): J96.21 - Acute and chronic respiratory failure with hypoxia
--- NOTE | 2024-02-17 09:35 | Hospitalist Progress Note ---
Date of Service February 17, 2024 Assessment & Plan (1) Encephalopathy: Plan: 73-year-old lady with PMH of PVD s/p surgery, moderate MR [TTE 2021], atrial septal aneurysm, lung adenocarcinoma on Tagrisso, squamous cell carcinoma of the lung on chemotherapy, COPD, DM2 on oral meds, CKD [baseline creatinine of 1.6- 1.7], chronic hyponatremia secondary to SIADH, chronic anemia [baseline hemoglobin of 9], GERD, cervical intraepithelial neoplasm status post surgery, migraine, anxiety/mood disorder, ongoing tobacco abuse was brought to the ED with complaint of not feeling well for the last few weeks, not eating well and increasingly getting weak in the last few days, 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 Patient also noted to have cough with shortness of breath, had been complaining of abdominal discomfort but denied black or bloody stool. Multifocal pneumonia Severe sepsis with shock in an immunocompromised patient Acute Hypoxic respiratory failure Metabolic encephalopathy Possible adrenal insufficiency: given intermittent Decadron Rx during chemotherapy. Random cortisol wnl. Pt on hydrocortisone in ICU. Acute right upper extremity DVT Patient presenting with cough and shortness of breath, had systolic blood pressure in 70s. Results of admitting CXR and CTA chest reviewed.Concerning for multifocal pneumonia Patient was admitted to ICU for vasopressor support. Patient was intubated on 02/10 due to progressive hypoxia/agitation Patient underwent bronchoscopy after intubation; thick grayish-white secretions appreciated in the trachea, daina and predominantly in bilateral lower lobe and left upper lobe. Bronchoalveolar lavage was obtained Patient extubated successfully on 02/13; However patient required reintubation on 02/15 due to respiratory stress. Noticed to have right upper extremity swelling on 02/13; Venous duplex shows; DVT in right internal jugular, subclavian and axillary vein;On heparin drip; continue. Continue on Zosyn and doxycycline; plan to treat for 7 days On hydrocortisone due to possible relative adrenal insufficiency; taperdown Blood culture and sputum negative till date Acute kidney injury over CKD Baseline creatinine around 1.6-1.8, admitting creatinine of 2.8; Likely ischemic ATN given septic shock, anemia. Trial of Bumex as per ICU on 02/12 and 02/13. Nephrology on board. Acute on chronic hyponatremia: Patient with chronic hyponatremia secondary to SIADH. Sodium level around 130. Admitting sodium level of 122. Sodium slowly improving, currently at 135. Acute on chronic anemia: Baseline hemoglobin around 9, admitting hemoglobin of 6.9, FOBT done in the ED was positive. Status post 2 unit PRBC, currently hemoglobin around 8 GI on board, continue with PPI, no plan for current intervention. Monitor H&H, transfuse for hemoglobin less than 7. Currently on heparin drip for DVT Type II NSTEMI: Patient with elevated troponin at presentation, down trended. EKG with no acute ST or T changes. Echo with EF of 60 to 65%, LV systolic function normal, no regional wall motion abnormalities of LV noted. Demand ischemia secondary to acute illness. Continue telemetry. Right ankle fracture: Right ankle x-ray with age-indeterminate fracture of proximal tip of the fifth metatarsal tubercle. Examination does not reveal any deformity/pain. No hx of trauma Other chronic medical conditions: Continue with/resume home meds as and when able. Two lung primary malignancies ongoing chemotherapy/Tagrisso Rx: Hold Rx due to acute illness. CTAP with concern for pelvic bone metastasis, will need follow up with her oncologist. hx PVD status post stent moderate MR (TTE 2021) atrial septal aneurysm as per records DM2 on oral medications, well-controlled as of recent hemoglobin A1c of 5.02 July 2023 ongoing tobacco abuse DVT prophylaxis. heparin drip Full code Time spent evaluating patient, direct bedside care, chart review, placing orders, interpretation of diagnostic studies, as well as other required patient management activities is 50 minutes Please note the above document was generated using voice recognition software. It may contain grammatical, syntax or spelling errors. Any formal questions or concerns about the content, text or information contained within the body of this dictation should be directly addressed to the provider for clarification Admission and Anticipated Discharge Date Admission Date: February 10, 2024 Subjective Patient continues to require mechanical ventilation Sedated; hemodynamically stable No significant events overnight Review of Systems Review of Systems: Unobtainable due to cognitive status Physical Exam Physical Exam: Constitutional: Intubated and mechanically ventilated. Sedated Respiratory: Bilateral mechanical breath sound. Cardiovascular: S1-S2, normal murmur. Abdomen: Soft, nondistended. Musculoskeletal: no cyanosis or clubbing, extremities motor strength 5/5. pitting edema present Skin: no rashes, warm and dry normal turgor Neurologic: PERRLA, moves all extremities Results & Data Results & Data Vital Signs (Past 12 Hours) Vital Signs Temp Pulse Pulse Resp BP Pulse Ox O2 Del Method 02/17/24 08:00 02/17/24 08:00 Mechanical Vent 02/17/24 08:00 76 02/17/24 07:11 76 24 95 02/17/24 07:10 76 24 95 Mechanical Vent 02/17/24 07:00 36.7 C 02/17/24 06:30 104/58 L 02/17/24 06:21 66 18 98 02/17/24 06:06 66 18 106/59 L 97 02/17/24 05:45 66 18 98 02/17/24 05:30 106/57 L 02/17/24 05:24 67 18 98 02/17/24 05:00 66 18 104/56 L 97 02/17/24 04:29 36.3 C L 02/17/24 04:00 66 18 103/56 L 97 02/17/24 03:30 109/60 02/17/24 03:26 68 18 98 02/17/24 03:21 67 18 96 02/17/24 03:03 67 18 99/56 L 97 02/17/24 02:30 122/64 02/17/24 02:30 74 18 98 02/17/24 02:06 70 18 97 02/17/24 01:30 100/54 L 02/17/24 01:21 67 18 96 02/17/24 01:09 67 18 101/46 L 96 02/17/24 00:54 68 18 96 02/17/24 00:33 69 18 101/47 L 96 02/17/24 00:27 36.4 C L 02/17/24 00:24 70 18 97 02/17/24 00:15 73 18 97 02/17/24 00:00 72 18 100/52 L 96 02/17/24 00:00 68 18 96 02/16/24 23:51 72 18 95 02/16/24 23:33 69 18 102/51 L 96 02/16/24 23:21 68 18 96 02/16/24 23:18 68 18 97 02/16/24 23:12 69 18 96 02/16/24 23:02 71 02/16/24 22:54 71 18 97 02/16/24 22:30 72 18 106/58 L 96 02/16/24 22:18 72 18 95 02/16/24 21:57 70 18 97 02/16/24 21:33 72 18 98 FiO2 02/17/24 08:00 30 02/17/24 08:00 02/17/24 08:00 02/17/24 07:11 30 02/17/24 07:10 35 02/17/24 07:00 02/17/24 06:30 02/17/24 06:21 02/17/24 06:06 02/17/24 05:45 02/17/24 05:30 02/17/24 05:24 02/17/24 05:00 02/17/24 04:29 02/17/24 04:00 02/17/24 03:30 02/17/24 03:26 35 02/17/24 03:21 02/17/24 03:03 02/17/24 02:30 02/17/24 02:30 02/17/24 02:06 02/17/24 01:30 02/17/24 01:21 02/17/24 01:09 02/17/24 00:54 02/17/24 00:33 02/17/24 00:27 02/17/24 00:24 02/17/24 00:15 02/17/24 00:00 02/17/24 00:00 35 02/16/24 23:51 02/16/24 23:33 02/16/24 23:21 02/16/24 23:18 02/16/24 23:12 02/16/24 23:02 02/16/24 22:54 02/16/24 22:30 02/16/24 22:18 02/16/24 21:57 02/16/24 21:33
--- NOTE | 2024-02-17 10:11 | Nephrology Progress Note ---
Date of Service February 17, 2024 Assessment & Plan Admission and Anticipated Discharge Date Admission Date: February 10, 2024 Subjective Assessment & Plan (1) Acute kidney injury (nontraumatic): Plan: No longer oliguric stage 3 (d/t UOP) [place] on CKD 4 (baseline creatinine 1.6-2.0 in 2023 though more 1.6-1.7 w/ stable weight December). Creat continues to rise but very slowly. s/p IV contrast for CTA chest 02/09. reviewed OP records. 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 she has improving AG now and no acidemia; doubt role for Farxiga related ketoacidosis. presume ischemic ATN given hypotension, anemia and IV contrast. Slow decline in renal functions continue, Cr 3.16 and rising Today. urine output did drop and starting to get some Pulm edema and got iv bumex yesterday. Will give Bumex 2 mg iv bid today Replace K to keep levels> 4.0. no need for IVF daily bmp Unlikely to need dialysis this admission. In any case doing dialysis in patient with what appears like metastatic terminal Cancer is not a good idea. Given [place] unlikely she can have further chemo at this time. she remains crit ically ill however. dialysis consent was obtained from on 02/10 and on chart. Family discussion and Possible palliative med Consult being Discussed. (2) Hyponatremia: Plan: improving and now this AM 135. Likely will go higher withIV Bumex. presented w/ sNa 122 and dropped to 118 by 0100 02/10. 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 -sodium 135 today -monitor daily (3) CKD (chronic kidney disease) stage 4, GFR 15-29 ml/min: Plan: CKD 4 though past month w/ some improvement in creatinine (more 1.6-1.7) and wt maintained. follows w/ Dr Ellis (4) Hypomagnesemia: Plan: mild; on [place] based therapy monitor daily. mag normal today (5) Respiratory failure, acute and chronic: Plan: Now intubated. (6) Lung cancer: Plan: on VEGF/TK inhibitor AND taxol / carboplatin/ ketruda and on intermittent decadron (last tx 01/22) (7) Pneumonia: Plan: severe; multilobar; cavitary lesions on imaging RLL, JAKE Conintue zosyn/doxy Above plan and care co-ordination discussed with ICU and Hospitalist. Subjective she had to be reintubated for respiratory distress She was breathing with the vent. Getting tube feeds. BP is fine without need of pressors.UOP was slowing so got iv bumex ysterday. Physical Exam Constitutional: Intubated on vent. Critically ill Eyes: EOM intact bilaterally ENMT: Mouth: + dry oral mucous membranes Neck: no nuchal rigidity Respiratory: Intubated on vent. + diminished lung sounds Cardiovascular: Rate/Rhythm: regular rate and regular rhythm Extremities: + edema (Trace peripheral) Gastrointestinal (Abdomen): abdomen soft nontender Musculoskeletal: Extremities: strength 5/5 throughout Skin: no rashes, warm and dry Results & Data Vital Signs (Past 12 Hours) Vital Signs Temp Pulse Pulse Resp BP Pulse Ox O2 Del Method 02/17/24 08:00 02/17/24 08:00 Mechanical Vent 02/17/24 08:00 76 02/17/24 07:11 76 24 95 02/17/24 07:10 76 24 95 Mechanical Vent 02/17/24 07:00 36.7 C 02/17/24 06:30 104/58 L 02/17/24 06:21 66 18 98 02/17/24 06:06 66 18 106/59 L 97 02/17/24 05:45 66 18 98 02/17/24 05:30 106/57 L 02/17/24 05:24 67 18 98 02/17/24 05:00 66 18 104/56 L 97 02/17/24 04:29 36.3 C L 02/17/24 04:00 66 18 103/56 L 97 02/17/24 03:30 109/60 02/17/24 03:26 68 18 98 02/17/24 03:21 67 18 96 02/17/24 03:03 67 18 99/56 L 97 02/17/24 02:30 122/64 02/17/24 02:30 74 18 98 02/17/24 02:06 70 18 97 02/17/24 01:30 100/54 L 02/17/24 01:21 67 18 96 02/17/24 01:09 67 18 101/46 L 96 02/17/24 00:54 68 18 96 02/17/24 00:33 69 18 101/47 L 96 02/17/24 00:27 36.4 C L 02/17/24 00:24 70 18 97 02/17/24 00:15 73 18 97 02/17/24 00:00 72 18 100/52 L 96 02/17/24 00:00 68 18 96 02/16/24 23:51 72 18 95 02/16/24 23:33 69 18 102/51 L 96 02/16/24 23:21 68 18 96 02/16/24 23:18 68 18 97 02/16/24 23:12 69 18 96 02/16/24 23:02 71 02/16/24 22:54 71 18 97 02/16/24 22:30 72 18 106/58 L 96 02/16/24 22:18 72 18 95 FiO2 02/17/24 08:00 30 02/17/24 08:00 02/17/24 08:00 02/17/24 07:11 30 02/17/24 07:10 35 02/17/24 07:00 02/17/24 06:30 02/17/24 06:21 02/17/24 06:06 02/17/24 05:45 02/17/24 05:30 02/17/24 05:24 02/17/24 05:00 02/17/24 04:29 02/17/24 04:00 02/17/24 03:30 02/17/24 03:26 35 02/17/24 03:21 02/17/24 03:03 02/17/24 02:30 02/17/24 02:30 02/17/24 02:06 02/17/24 01:30 02/17/24 01:21 02/17/24 01:09 02/17/24 00:54 02/17/24 00:33 02/17/24 00:27 02/17/24 00:24 02/17/24 00:15 02/17/24 00:00 02/17/24 00:00 35 02/16/24 23:51 02/16/24 23:33 02/16/24 23:21 02/16/24 23:18 02/16/24 23:12 02/16/24 23:02 02/16/24 22:54 02/16/24 22:30 02/16/24 22:18
[2024-02-17] MEDS ORDERED: methylPREDNISolone 125 MG/2 ML VIAL IV SCH (10:30)
[2024-02-17] MEDS: FUROSEMIDE 40 MG/4 ML VIAL IV SCH (10:50)
[2024-02-17] MEDS: methylPREDNISolone 125 MG in SYRINGE 0 ML IV SCH (11:01)
--- NOTE | 2024-02-17 14:17 | Palliative Care Consultation ---
Date of Consultation February 17, 2024 Assessment & Plan (1) Lung cancer: per primary/[facility] oncologist Dr Lopez (2) Pneumonia: continue medical management per primary Laterality: left Lung location: lower lobe of lung Pneumonia type: due to unspecified organism Qualified Code(s): J18.9 - Pneumonia, unspecified organism (3) Respiratory failure, acute and chronic: orally intubated and mechanically ventilated. Continue to wean to extubate per primary. DO NOT REINTUBATE IF ETT REMOVED FOR ANY REASON. Family hopeful for successful liberation from ventilator, but if pt again fails extubation they will transition to DEVELOPMENTAL TRAINING COUNSELOR. BTE: neurologic status and respiratory failure iso renal failure. Respiratory failure complication: hypoxia Qualified Code(s): J96.21 - Acute and chronic respiratory failure with hypoxia (4) Acute on chronic renal insufficiency: per nephrology. (5) Anemia: management per primary Anemia type: unspecified type Qualified Code(s): D64.9 - Anemia, unspecified Present on Admission?: Yes (6) Counseling regarding goals of care: 73-year-old female with past medical history significant for COPD, lung cancer x 2 (initially adenocarcinoma status post Tagrisso, now with squamous cell carcinoma status post CarboTaxol with unknown immune therapy), anxiety and depression, peripheral vascular disease, DM type II, HLD, HTN who is admitted to the ICU with septic shock requiring vasopressor support and recurrent respiratory failure requiring intubation x 2 this hospitalization. Lengthy conversation with pt's spouse Ryne and her daughter. Ryne shared that the he and the pt have been 42yrs and they have no children but she had a daughter and son from previous marriage. Pt's son at age 42 and her daughter was present for conversation. Pt reportedly has no living will but has expressed to all family many times throughout her life that she would not wish to be kept alive on machines. Discussed importance of LW/AD and that in absence of documented wishes, per [place] [id number] pt's legal proxy for medical decisions would be the pt's current spouse (Ryne Tressa [phone]) and any adult children from previous relationship WITH EQUAL DECISIONAL POWER. Ryne shared that the pt has been living at home with him and until very recently has been independent with all ADLs and iADLs. He shared that since starting cancer directed treatment, she has been getting progressively weaker. He shared that he has been wondering if chemotherapy was worth trying and if perhaps it has made her sicker. He shared that he had just discussed the plan to wean the pt off ventilator with hopes for successful extubation tomorrow. Discussed that the pt is critically ill and discussed her incurable metastatic cancer. Ryne shared that the pt's oncologist Dr. Lopez at [facility] had given them a prognosis of only 6 months with chemotherapy and less than three months without. Discussed pt's goals of care and what she would want if she were to fail extubation a third time or decompensate precluding successful extubation over night. He and pt's daughter both shared that they would not want the pt to be reintubated, fitting with her wish to not be kept alive on machines. Discussed options on continuing current course of treatment including mechanical ventilation potentially leading to tracheostomy and LTAC placement for ongoing care, potential complications involving repeat hospitalizations vs transition to comfort directed care. Both are in agreement that they would like to see if patient can be successfully extubated but if she fails they would NOT WANT REINTUBATION and would transition to comfort directed care. Discussed resuscitation and described CPR a something that is only initiated after a person has and shared potential complication of resuscitation including but not limited to rib fractures, ventilator dependence and anoxic brain injury. Both the pt's spouse and her daughter shared that they would NOT WANT RESUSCITATION. They have more family members to visit this evening and the spouse will be at bedside before 9am. Palliative care will continue to follow. Plan as above History of Present Illness Reason for Consultation: goals of care Requesting Physician: Giuseppe Neal MD Attending Physician: Flaco Dowd MD History of Present Illness Mrs. 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 She was brought to the ER for evaluation by spouse after few weeks of progressive weakness, poor PO intake, poor UOP, increasing lethargy and SOB. She was hypoxic requiring Bipap and hypotensive in ED and admitted for medical management. Ultimately she failed bipap (hypoxic and hypercarbic) and was intubated and sent to ICU for ongoing management. She was able to be liberated from ventilator once, but was reintubated within 24hrs due to hypoxia and tachypnea. Palliative care was consulted for assistance with establishing goals of care as ICU team is preparing to liberate pt from ventilator once again. Allergies Allergy/AdvReac Type Severity Reaction Status Date / Time NSAIDS (Non-Steroidal AdvReac Intermediate Hives Verified 12/16/23 07:27 Anti-Inflamma Home Medications Medication Instructions Recorded Confirmed Type amlodipine 5 mg tablet 2.5 mg PO QAM 12/04/23 02/10/24 History budesonide 160 mcg-glycopyr 9 2 inh inhalation QPM 12/04/23 02/10/24 History mcg-formot 4.8 mcg/actuation HFA inhaler (Breztri Aerosphere) bupropion HCl 150 mg 24 hr tablet, 150 mg PO QAM 12/04/23 02/10/24 History extended release dapagliflozin propanediol 5 mg 5 mg PO QAM 12/04/23 02/10/24 History tablet (Farxiga) dexamethasone 4 mg tablet See Rx Instructions .Route .COMPLEX 12/04/23 02/10/24 History lansoprazole 15 mg capsule,delayed 15 mg PO QAM 12/04/23 02/10/24 History release losartan 100 mg tablet 100 mg PO QAM 12/04/23 02/10/24 History osimertinib 40 mg tablet (Tagrisso) 40 mg PO QAM 12/04/23 02/10/24 History rosuvastatin 10 mg tablet 10 mg PO QAM 12/04/23 02/10/24 History venlafaxine 150 mg 150 mg PO QAM 12/04/23 02/10/24 History capsule,extended release 24 hr (Effexor XR) acetaminophen 500 mg tablet 500 mg PO Q6H PRN Pain 02/10/24 02/10/24 History albuterol sulfate 2.5 mg/3 mL 2.5 mg inhalation Q4H PRN Wheezing 02/10/24 02/10/24 History (0.083 %) solution for nebulization albuterol sulfate 90 mcg/actuation 2 puff inhalation 6XD PRN Wheezing 02/10/24 02/10/24 History aerosol inhaler aspirin 81 mg tablet,delayed 81 mg PO DAILY 02/10/24 02/10/24 History release lidocaine-prilocaine 2.5 %-2.5 % 1 applic topical UD 02/10/24 02/10/24 History topical cream melatonin 5 mg tablet 5 mg PO HS 02/10/24 02/10/24 History omeprazole 20 mg capsule,delayed 20 mg PO QAM 02/10/24 02/10/24 History release ondansetron HCl 8 mg tablet 8 mg PO Q8H PRN Nausea And Vomiting 02/10/24 02/10/24 History prochlorperazine maleate 10 mg 10 mg PO Q6H PRN Nausea 02/10/24 02/10/24 History tablet propranolol 60 mg capsule,24 60 mg PO QAM 02/10/24 02/10/24 History hr,extended release trazodone 100 mg tablet 100 mg PO QAM 02/10/24 02/10/24 History Patient History Medical History Hyponatremia AAA (abdominal aortic aneurysm) per 09/10/23 imagin.7mm CKD (chronic kidney disease) stage 4, GFR 15-29 ml/min Carotid artery disease s/p R CEA Peripheral vascular disease Diverticular disease No hospitalizations - unsure when dx Acid reflux Diabetes mellitus, type 2 Anxiety Migraine HTN (hypertension) Irregular heart beat Follows Dr Hannah Springer; 'frequent PVCs' per chart review COPD (chronic obstructive pulmonary disease) 55 pack year smoking hx Lung cancer Per Oncology note, "Right lung mass, FNA c/w non small cell lung cancer favor adenocarcinoma. 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" Surgical History H/O vascular surgery L leg stent x 2 Hx of hysterectomy History of lung biopsy History of right shoulder replacement History of carotid endarterectomy R CEA History of bilateral hip replacements History of total left knee replacement Hx of colonoscopy Hx of cholecystectomy Hx of cataract surgery Bilateral Social History Smoking Status: Never smoker Tobacco Type: Cigarettes Cigarettes Per Day: 1/2 pack; Second Hand Exposure: No; Do You Dip or Chew Tobacco: No; Hx Alcohol Use: No Hx Substance Use: No Preferred Language: Barbadian Communication Ability: Impaired Supervisor Assembly Department Required: No Beliefs That Will Affect Care: Bahai Current Living Situation: Spouse Feels Safe at Home: Yes Assistive Devices: Bedside Commode, Lift Chair, Walker and Wheelchair Review of Systems Review of Systems: Alvaro, pt orally intubated, sedated and mechanically ventilated. Physical Exam Physical Exam: Pt unresponsive to verbal stimuli, sedated, orally intubated and mechanically ventilated. Constitutional: + ill appearing, + altered mental status and + mechanically ventilated Eyes: PERRL Respiratory: Auscultation: + crackles orally intubated and mechanically ventilated Cardiovascular: Rate/Rhythm: + tachycardic and + irregularly irregular Heart Sounds: normal S1 and normal S2 Extremities: + edema Gastrointestinal (Abdomen): normal bowel sounds, soft, nontender, no hepatosplenomegaly Musculoskeletal: Alvaro fully, no resistance to PROM Neurologic: sedated with fentanyl/propofol drips - ALVARO fully Results & Data Vital Signs (Past 12 Hours) Vital Signs Temp Pulse Pulse Resp BP Pulse Ox O2 Del Method 02/17/24 12:31 126/72 02/17/24 12:31 126/72 02/17/24 12:30 02/17/24 12:27 102 H 21 02/17/24 12:16 94 H 21 95 02/17/24 12:03 91 H 16 94 02/17/24 12:00 149/74 H 02/17/24 12:00 149/74 H 02/17/24 11:51 92 H 13 95 02/17/24 11:30 137/69 02/17/24 11:30 137/69 02/17/24 11:30 137/69 02/17/24 11:24 86 11 L 94 02/17/24 11:03 83 14 95 02/17/24 11:00 143/74 H 02/17/24 11:00 143/74 H 02/17/24 10:54 84 12 96 02/17/24 10:03 77 19 96 02/17/24 10:00 139/70 02/17/24 10:00 74 14 96 02/17/24 09:45 74 18 95 02/17/24 09:30 142/68 H 02/17/24 09:30 77 18 97 02/17/24 09:09 70 18 94 02/17/24 09:00 124/63 02/17/24 09:00 124/63 02/17/24 08:54 70 21 94 02/17/24 08:30 122/60 02/17/24 08:24 71 18 94 02/17/24 08:21 70 18 93 02/17/24 08:00 118/57 L 02/17/24 08:00 118/57 L 02/17/24 08:00 02/17/24 08:00 Mechanical Vent 02/17/24 08:00 76 02/17/24 07:57 70 18 92 02/17/24 07:30 115/56 L 02/17/24 07:24 67 18 94 02/17/24 07:11 76 24 95 02/17/24 07:10 76 24 95 Mechanical Vent 02/17/24 07:03 67 18 96 02/17/24 07:00 104/51 L 02/17/24 07:00 36.7 C 02/17/24 06:51 68 18 96 02/17/24 06:33 65 18 98 02/17/24 06:30 104/58 L 02/17/24 06:21 66 18 98 02/17/24 06:06 66 18 106/59 L 97 02/17/24 05:45 66 18 98 02/17/24 05:30 106/57 L 02/17/24 05:24 67 18 98 02/17/24 05:00 66 18 104/56 L 97 02/17/24 04:29 36.3 C L 02/17/24 04:00 66 18 103/56 L 97 02/17/24 03:30 109/60 02/17/24 03:26 68 18 98 02/17/24 03:21 67 18 96 02/17/24 03:03 67 18 99/56 L 97 02/17/24 02:30 122/64 02/17/24 02:30 74 18 98 FiO2 02/17/24 12:31 02/17/24 12:31 02/17/24 12:30 30 02/17/24 12:27 02/17/24 12:16 30 02/17/24 12:03 02/17/24 12:00 02/17/24 12:00 02/17/24 11:51 02/17/24 11:30 02/17/24 11:30 02/17/24 11:30 02/17/24 11:24 02/17/24 11:03 02/17/24 11:00 02/17/24 11:00 02/17/24 10:54 02/17/24 10:03 02/17/24 10:00 02/17/24 10:00 30 02/17/24 09:45 02/17/24 09:30 02/17/24 09:30 02/17/24 09:09 02/17/24 09:00 02/17/24 09:00 02/17/24 08:54 02/17/24 08:30 02/17/24 08:24 02/17/24 08:21 02/17/24 08:00 02/17/24 08:00 02/17/24 08:00 30 02/17/24 08:00 02/17/24 08:00 02/17/24 07:57 02/17/24 07:30 02/17/24 07:24 02/17/24 07:11 30 02/17/24 07:10 35 02/17/24 07:03 02/17/24 07:00 02/17/24 07:00 02/17/24 06:51 02/17/24 06:33 02/17/24 06:30 02/17/24 06:21 02/17/24 06:06 02/17/24 05:45 02/17/24 05:30 02/17/24 05:24 02/17/24 05:00 02/17/24 04:29 02/17/24 04:00 02/17/24 03:30 02/17/24 03:26 35 02/17/24 03:21 02/17/24 03:03 02/17/24 02:30 02/17/24 02:30 Laboratory Results Abnormal lab results 02/16/24 02/16/24 02/17/24 Range/Units 17:33 19:02 00:09 WBC (4.8-10.8) K/ul RBC (4.20-5.40) M/uL Hgb (12.0-16.0) g/dl Hct (37.0-47.0) % RDW Std Deviation (36.4-46.3) fL RDW Coeff of Lara (11.5-14.5) % Neut # (Auto) (1.40-6.50) K/uL Lymph # (Auto) (1.20-3.40) K/uL Immature Gran # (Auto) (0.01-0.20) K/uL Sodium 133 L (136-145) mmol/L Carbon Dioxide (21-32) mmol/L Anion Gap 14 H (3-11) BUN 73 H (6-23) mg/dl Creatinine 3.07 H (0.6-1.2) mg/dl BUN/Creatinine Ratio 23.8 H (10-20) Glucose 104 H (70-99(Fasting)) mg/dl POC Glucose 123 H 138 H (70-99) mg/dl Calcium 8.4 L (8.6-10.3) mg/dl Phosphorus (2.5-4.9) mg/dl 02/17/24 02/17/24 Range/Units 04:23 11:06 WBC 11.22 H (4.8-10.8) K/ul RBC 2.64 L (4.20-5.40) M/uL Hgb 7.5 L (12.0-16.0) g/dl Hct 22.8 L (37.0-47.0) % RDW Std Deviation 59.0 H (36.4-46.3) fL RDW Coeff of Lara 18.7 H (11.5-14.5) % Neut # (Auto) 9.42 H (1.40-6.50) K/uL Lymph # (Auto) 1.18 L (1.20-3.40) K/uL Immature Gran # (Auto) 0.24 H (0.01-0.20) K/uL Sodium 135 L (136-145) mmol/L Carbon Dioxide 20 L (21-32) mmol/L Anion Gap 14 H (3-11) BUN 78 H (6-23) mg/dl Creatinine 3.16 H (0.6-1.2) mg/dl BUN/Creatinine Ratio 24.7 H (10-20) Glucose 113 H (70-99(Fasting)) mg/dl POC Glucose 130 H (70-99) mg/dl Calcium 7.6 L (8.6-10.3) mg/dl Phosphorus 6.8 H (2.5-4.9) mg/dl Diagnostic Findings Pelvis X-Ray 02/10/24 16:21 EXAM: Radiographs of the Pelvis 1 View INDICATION: Fall. TECHNIQUE: Frontal view of the pelvis. COMPARISON: No relevant prior studies available. FINDINGS: Limitations: None. Bones/joints: Visualized bilateral hip prostheses well-seated. No dislocation or fracture noted in 1 year. Soft tissues: No abnormality noted. No radiopaque foreign body noted. Vasculature: Atherosclerosis of the abdominal aorta noted with a stent projecting to the left of the L4 vertebra possibly in the left renal artery. IMPRESSION: No pelvic fracture noted. ACT 112: Negative or not required by law. Electronically signed by Anny Pelayo 02-10-2024 6:10 PM Ankle X-Ray 02/10/24 17:40 EXAM: Radiographs of the Right Ankle 3 Views INDICATION: Fall. TECHNIQUE: Frontal, lateral and oblique views of the right ankle. COMPARISON: No relevant prior studies available. FINDINGS: Limitations: None. Bones/joints: There is mild spurring along the medial malleolus presumably related to previous trauma. Well-corticated ossicle seen on the lateral view projecting at the talar neck. There is a defined lucency at the proximal tip of the fifth metatarsal tubercle with small adjacent well-corticated ossification. Ankle mortise intact. Soft tissues: Mild periarticular soft tissue swelling. No soft tissue gas collection or radiopaque foreign body. IMPRESSION: Age-indeterminate fracture proximal tip of the fifth metatarsal tubercle. ACT 112: Negative or not required by law. Electronically signed by Anny Pelayo 02-10-2024 6:[address] 02/10/24 17:50 Exam(s): CT C SPINE EXAM: CT Cervical Spine Without Intravenous Contrast CLINICAL HISTORY: Reason for exam: lung CA, fall, hip pain. TECHNIQUE: Axial computed tomography images of the cervical spine without intravenous contrast. CTDI is 19.93 mGy and DLP is 693.39 mGy-cm. Automated exposure control was utilized for the study. A dose lowering technique was utilized adhering to the principles of ALARA. COMPARISON: No relevant prior studies available. FINDINGS: Vertebrae: No fracture or malalignment. Severe degenerative disc disease at C3-4, C4-5, C5-6, and C6-7. No severe spinal canal stenosis. Multilevel foraminal stenosis of variable degrees. Soft tissues: Interstitial thickening and nodularity at the left lung apex. IMPRESSION: 1. No fracture within the cervical spine. 2. Interstitial thickening and nodularity at the left lung apex. Electronically signed by: Felix Russell MD 02/10/24 21:19 PM Chest CTA 02/10/24 17:50 Exam(s): CTA CHEST IV Amt: 117 cc opti 320 EXAM: CT Angiography Chest With Intravenous Contrast CLINICAL HISTORY: Reason for exam: lung CA, Trop 4700, r/o pe. TECHNIQUE: Axial computed tomographic angiography images of the chest with intravenous contrast. CTDI is 34.77 mGy and DLP is 624.41 mGy-cm. Automated exposure control was utilized for the study. A dose lowering technique was utilized adhering to the principles of ALARA. MIP reconstructed images were created and reviewed. COMPARISON: No relevant prior studies available. FINDINGS: Pulmonary arteries: No pulmonary embolism. Aorta: No acute findings. Normal caliber. No dissection. Lungs: Extensive consolidation in the left lower lobe. More nodular appearing lesions in the left upper lobe some of which demonstrate early cavitation. Cavitating lesion in the right lower lobe with wall thickening measuring up to 4.3 cm. Heterogeneous opacity in the right upper lobe with what appears to be a peripheral rim measuring 4.3 cm (series 10 image 88). Linear nodularity in the posterior right upper lobe measuring 3.7 x 1.5 cm. Pleural space: Unremarkable. Heart: Heart size mildly prominent. Severe CAD. Mediastinum: Moderate hiatal hernia. Bones/joints: No acute fracture. Soft tissues: Unremarkable. Lymph nodes: Unremarkable. IMPRESSION: 1. No pulmonary embolism. 2. Extensive consolidation in the left lower lobe. 3. More nodular appearing lesions in the left upper lobe some of which demonstrate early cavitation. 4. Cavitating lesion in the right lower lobe with wall thickening measuring up to 4.3 cm. 5. Heterogeneous opacity in the right upper lobe with what appears to be a peripheral rim measuring 4.3 cm (series 10 image 88). 6. Linear nodularity in the posterior right upper lobe measuring 3.7 x 1. 5 cm. 7. Moderate hiatal hernia. 8. Heart size mildly prominent. Severe CAD. Electronically signed by: Felix Russell MD 02/10/24 19:[address] 02/10/24 17:50 CR Exam(s): CT HEAD Without Contrast EXAM: CT Head Without Intravenous Contrast CLINICAL HISTORY: Reason for exam: lung CA, fall, pain. TECHNIQUE: Axial computed tomography images of the head/brain without intravenous contrast. CTDI is 34.77 mGy and DLP is 624.41 mGy-cm. Automated exposure control was utilized for the study. A dose lowering technique was utilized adhering to the principles of ALARA. COMPARISON: No relevant prior studies available. FINDINGS: Artifacts: Images are degraded by motion artifact. Brain: No hemorrhage, extra-axial fluid collection, mass effect, or edema. Age indeterminate infarct within the right parietal cortex (series 5 image 11). Ventricles: Unremarkable. Bones/joints: Unremarkable. No fracture. Soft tissues: Unremarkable. Sinuses: No acute sinusitis. Mastoid air cells: Unremarkable as visualized. IMPRESSION: 1. No intracranial hemorrhage or traumatic injury identified. 2. 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 Correlate clinically. Consider MRI if there is concern for acute ischemia. Communications: Verify Receipt Electronically signed by: Felix Russell MD 02/10/24 20:58 PM Venous Doppler Study 02/14/24 00:00 RIGHT UPPER EXTREMITY VENOUS DOPPLER ULTRASOUND CLINICAL HISTORY: rule out DVT COMPARISON STUDY: No previous studies for comparison. TECHNIQUE: Sonography of the deep venous system of the right upper extremity was performed. FINDINGS: There is deep venous thrombus within the right internal jugular, subclavian and axillary veins. Thrombus is noted adjacent to the right internal jugular [id number]. There is also superficial thrombus within the right basilic vein. IMPRESSION: 1. Positive study with deep venous thrombus within the right internal jugular, subclavian and axillary veins. Thrombus adjacent to the right internal jugular [id number]. 2. Superficial thrombus within the right basilic vein. ACT 112: Negative or not required by law. Electronically signed by: Abel Roberson M.D. 02/14/2024 1:46 PM Chest X-Ray 02/16/24 05:15 EXAM: XR chest 1V portable CLINICAL HISTORY: EVAL LUNG HANSON WHILE INTUBATED [facility] TECHNIQUE: An X-ray image of the chest is obtained in AP portable projection. COMPARISON: 02/15/2024. FINDINGS: Right CVL with tip in SVC. NGT noted in place. Interval insertion of ETT with its tip lying 2.6 cm above the daina (Low position). Pulmonary Parenchyma: Interval stable course of patchy air space opacities and reticular thickening in left lung lower zone. Unchanged right lung lower zone inhomogeneous opacities. Prominent bilateral parahilar markings. Bilateral CP angles are obscured suggesting pleural effusion. Heart and Mediastinum: Heart size and shape are normal. No mediastinal widening or masses. No hilar or mediastinal lymphadenopathy. Bony Thorax: Bilateral shoulder replacement prosthesis. Mild spondylotic changes in the thoracic spine. The bony thorax appears intact without fractures or deformities. Soft Tissues: Soft tissues overlying the chest wall are unremarkable IMPRESSION: 1. Interval stable course of patchy air space opacities and reticular thickening in left lung lower zone. 2. Unchanged right lung lower zone inhomogeneous opacities. 3. Interval insertion of ETT with its tip lying 2.6 cm above the daina (Low position), needs readjustment. 4. Unchanged rest of the study. [facility] ER was called at [phone] at 4:53 AM GAS OPERATIONS ANALYST, 02/16/2024, and Nurse Mercy was informed regarding the presence of Important Medical Findings on this report. Electronically signed by Ragini Solis 02-16-2024 05:[address] 02/16/24 08:47 CT OF THE CHEST WITHOUT IV CONTRAST CLINICAL HISTORY: Worsening hypoxia. Lung cancer. COMPARISON STUDY: Chest radiograph performed earlier today. Chest CT February 10, [address]24. CT DOSE: 2221.55 mGy.cm TECHNIQUE: Axial images of the chest were obtained without IV contrast. Images were reviewed in the axial, sagittal, and coronal planes. IV contrast was not administered for this examination. Automated exposure control was utilized for the study. A dose lowering technique was utilized adhering to the principles of ALARA. FINDINGS: A right internal jugular [id number] is in place. Tip of endotracheal tube is just above the daina. Tip of nasogastric tube is within the stomach. There is no pneumothorax. Small to moderate right and small left pleural effusions have increased since CT of February 10, 2024. Prominent mediastinal lymph nodes are unchanged. These are suboptimally assessed on unenhanced exam. There is a moderate sized hiatal hernia. Underlying emphysema. Interlobular septal thickening is present. A cavitary right lower lobe lesion measuring 4.3 x 3.5 cm is again noted. This lesion is spiculated with irregular thickened wall. Right upper lobe irregular density measures 4.2 cm. This may also be neoplastic. Multiple cavitary left upper lobe nodules are again noted. These are stable to slightly improved since prior exam. Extensive left upper lobe and left lower lobe consolidation has progressed. Right lung airspace opacities have also increased. The abdomen and pelvis CT will be reported separately. There is body wall edema. IMPRESSION: 1. Satisfactory positioning of the endotracheal and nasogastric tubes. 2. Progression of extensive bilateral airspace opacities, greater within the left lung. The findings suggest pneumonia or aspiration pneumonitis. 3. Redemonstration of several suspicious right lung lesions, including a spiculated cavitary 4.3 x 3.5 cm lesion suggestive of primary lung neoplasm. 4. Stable to slight improvement in multiple irregular left upper lobe nodules, several of which are cavitary. These may be infectious or neoplastic. 5. Persistent interlobular septal thickening. This favors pulmonary edema although lymphangitic tumor could appear similar. 6. Increase in small to moderate right and small left pleural effusions. No pneumothorax. ACT 112: Negative or not required by law. Electronically signed by: Abel Roberson M.D. 02/16/2024 10:12 AM Abdomen/Pelvis CT 02/16/24 09:12 CT OF THE ABDOMEN AND PELVIS WITHOUT CONTRAST CLINICAL HISTORY: R/o Bleed COMPARISON STUDY: CT of the abdomen and pelvis February 10, 2024. TECHNIQUE: Axial images of the abdomen and pelvis were obtained without IV contrast. Images were reviewed in the axial, sagittal, and coronal planes. Automated exposure control was utilized for the study. A dose lowering technique was utilized adhering to the principles of ALARA. FINDINGS: Please note that the chest CT will be reported separately. Bilateral pleural effusions with extensive lower lung airspace opacities are better depicted on that exam. Tip of nasogastric tube is within the body of the stomach. Evaluation of the abdomen and pelvis is suboptimal on this unenhanced examination. No retroperitoneal hematoma is present. There is no hemoperitoneum. Unenhanced images of the liver, spleen, adrenal glands, kidneys and pancreas are unremarkable with the exception of moderate left renal atrophy. There is a 4.3 x 4 cm infrarenal abdominal aortic aneurysm with extensive aortoiliac atherosclerotic plaque. There is no evidence for rupture. Left common iliac artery stent is in place. Images of the pelvis are degraded by streak artifact from bilateral hip arthroplasties. Body wall edema is present. There is no evidence for a bowel obstruction. No bowel wall thickening is identified on unenhanced exam. There is colonic diverticulosis without evidence for acute diverticulitis. Moderate-sized hilar hernia. IMPRESSION: 1. No retroperitoneal hematoma. No hemoperitoneum. 2. No bowel obstruction. 3. 4.4 cm infrarenal abdominal aortic aneurysm. Extensive aortoiliac atherosclerotic plaque. No evidence for rupture. 4. Anasarca. 5. Bilateral pleural effusions and extensive lower lung airspace opacity sugges tive of pneumonia or aspiration pneumonitis, better depicted on the chest CT which will be reported separately. ACT 112: Negative or not required by law. Electronically signed by: Abel Roberson M.D. 02/16/2024 10:17 AM Medications Administered Current Inpatient Medications Acetaminophen (Acetaminophen 325 Mg Tab) 650 mg PO QID PRN PRN Reason: pain/fever Stop: 03/11/24 21:54 Albuterol (Albut/Ipratrop 3mg/0.5mg Neb 3 Ml Vial) 3 ml NEB Q6R PRN; Protocol PRN Reason: Shortness Of Breath Or Wheezing Stop: 03/17/24 09:36 Budesonide (Budesonide 0.5 Mg/2 Ml Vial (Pulmicort)) 0.5 mg NEB BIDR [facility] Stop: 03/17/24 18:59 Last Admin: 02/17/24 07:07 Dose: 0.5 mg Bupropion HCl (Bupropion Hcl 100 Mg Tablet) 100 mg PO BID [facility] Stop: 03/16/24 13:59 Last Admin: 02/17/24 08:40 Dose: 100 mg Dextrose (Dextrose 50% 50 Ml Syringe) 25 - 50 ml IV UD PRN; Protocol PRN Reason: Hypoglycemia Protocol Stop: 03/11/24 22:53 Fentanyl Citrate (Fentanyl Bolus From Bag) 50 mcg IV Q60M PRN PRN Reason: Pain or Agitation Stop: 02/29/24 23:11 Last Admin: 02/16/24 19:27 Dose: 50 mcg Formoterol Fumarate (Formoterol 20 Mcg/2 Ml Vial) 20 mcg INH BIDR [facility] Stop: 03/17/24 18:59 Last Admin: 02/17/24 07:07 Dose: 20 mcg Furosemide (Furosemide 40 Mg/4 Ml Vial) 60 mg IV BID17 [facility] Stop: 03/18/24 10:29 Last Admin: 02/17/24 10:50 Dose: 60 mg Glucagon (Glucagon For Inj 1 Mg Vial) 1 mg SQ UD PRN; Protocol PRN Reason: Hypoglycemia Protocol Stop: 03/11/24 22:53 Glucose (Glucose 40% Gel 15 Gm Tube) 15 - 30 gm PO UD PRN; Protocol PRN Reason: Hypoglycemia Protocol Stop: 03/11/24 22:53 Glucose (Glucose 10 Tab/Tube) 4 - 8 tab PO UD PRN; Protocol PRN Reason: Hypoglycemia Protocol Stop: 03/11/24 22:53 Hydralazine HCl (Hydralazine Hcl 20 Mg/Ml Vial) 5 mg IV Q4H PRN PRN Reason: SBP > 160 sustained Stop: 03/15/24 22:49 Piperacillin Sod/Tazobactam Sod (Zosyn) 4.5 gm in 100 mls @ 25 mls/hr IV Q12H [facility]; Protocol Stop: 02/18/24 03:59 Last Infusion: 02/17/24 07:43 Dose: Infused Promethazine HCl (Phenergan) 6.25 mg in 50.25 mls @ 201 mls/hr IV Q6H PRN PRN Reason: Nausea And Vomiting Stop: 03/11/24 21:54 Pantoprazole Sodium (Protonix) 40 mg in 10 mls @ 5 mls/min IV BID [facility] Stop: 03/12/24 08:59 Last Admin: 02/17/24 08:38 Dose: 5 mls/min Doxycycline Hyclate 100 mg/ (Dextrose) 100 mls @ 50 mls/hr IV Q12H [facility] Stop: 02/17/24 21:59 Last Infusion: 02/17/24 14:03 Dose: Infused Heparin Sodium/Dextrose (Heparin Sodium/Dextrose) 25,000 units in 500 mls @ 19 mls/hr IV .Q24H [facility]; Protocol Stop: 03/15/24 14:14 Last Admin: 02/17/24 14:23 Dose: Not Given Propofol (Diprivan) 1,000 mg in 100 mls @ 8.148 mls/hr IV .[id number] [facility]; Protocol Stop: 02/18/24 23:14 Last Admin: 02/17/24 12:15 Dose: 20 mcg/kg/min, 8.1 mls/hr Fentanyl Citrate (Fentanyl Citrate) 2,500 mcg in 250 mls @ 7.5 mls/hr IV .[id number] [facility]; Protocol Stop: 02/29/24 23:14 Last Titration: 02/17/24 12:17 Dose: 75 mcg/hr, 7.5 mls/hr Norepinephrine Bitartrate (Levophed/D5w) 4 mg in 250 mls @ 0 mls/hr IV .Q0M [facility]; Protocol Stop: 03/17/24 04:44 Last Admin: 02/17/24 08:41 Dose: Not Given Methylprednisolone 125 mg/ (Syringe) 2 mls @ 0.667 mls/min IV Q6H [facility] Stop: 03/18/24 10:29 Last Admin: 02/17/24 11:01 Dose: 0.667 mls/min Insulin Aspart (Insulin Aspart Per Unit Charge) 0 units SC Q6 [facility] Stop: 03/18/24 00:00 Last Admin: 02/17/24 11:20 Dose: Not Given Metoprolol Tartrate (Metoprolol Tartrate 1 Mg/Ml Vial) 5 mg IV Q4 PRN PRN Reason: HR > 110 sustained Stop: 03/16/24 03:59 Last Admin: 02/15/24 00:25 Dose: 5 mg Miscellaneous (Carbohydrates For Hypoglycemia ) 15 - 30 gm PO UD PRN PRN Reason: Hypoglycemia Protocol Stop: 03/11/24 22:53 Nutritional Formula (Peptamen Intense Vhp 1.0 C[place]ar 1,000 Ml Bag) 0 ml OG .See Protocol [facility]; Protocol Stop: 03/17/24 05:44 Last Admin: 02/17/24 09:13 Dose: 1,000 ml Propofol (Propofol Bolus From Bag) 20 mg IV Q5M PRN PRN Reason: Sedation Stop: 02/18/24 23:11 Last Admin: 02/16/24 06:19 Dose: 20 mg Trazodone HCl (Trazodone Hcl 100 Mg Tab) 100 mg PO DAILY [facility] Stop: 03/16/24 14:29 Last Admin: 02/15/24 14:32 Dose: 100 mg Venlafaxine HCl (Venlafaxine Hcl Xr 150 Mg Capxr) 150 mg PO DAILY [facility] Stop: 03/16/24 14:29 Last Admin: 02/15/24 14:45 Dose: 150 mg Venlafaxine HCl (Venlafaxine Hcl 37.5 Mg Tab) 75 mg PO BID [facility] Stop: 03/17/24 09:59 Last Admin: 02/17/24 08:40 Dose: 75 mg PG Care Time/CCT Total # of Minutes Spent Total Time Spent with Patient: Total time spent is greater than 50% in coordination of care (as documented) at patient's floor/unit and/or counseling patient: Advanced Care Planning 92578 Advanced Care Planning 30 [place] [address] IN/OBS CONSULT LVL 4,60M Patient Type New Medical Decision Making High Complexity Diagnoses Lung cancer C34.90 Pneumonia J18.9 Laterality: left Lung location: lower lobe of lung Pneumonia type: due to unspecified organism Respiratory failure, acute and chronic J96.21 Respiratory failure complication: hypoxia Acute on chronic renal insufficiency N28.9; N18.9 Anemia D64.9 Anemia type: unspecified type Counseling regarding goals of care Z71.89 Additional Codes Advanced Care Planning - 81498 Advanced Care Planning 30 Min: 60178 Advanced Care Planning 30 Min ([id number])
[2024-02-17] MEDS: MAGNESIUM SULFATE / D5W 1 GM/100 ML BAG IV SCH (21:48)
[2024-02-17] MEDS: POTASSIUM CHLORIDE 20 MEQ/15 ML UDC PO STA (21:48)
[2024-02-17 22:03] LABS: BUN Creatinine Ratio 27.6 (10-20); Creatinine Clr Calc Pharmacy 13.7 ml/min; Magnesium 1.9 mg/dl (1.7-2.4); Potassium 3.3 mmol/L (3.5-5.1)
[2024-02-17] MEDS: POTASSIUM CHLORIDE / WTR 10 MEQ/100 ML PLCT IV ONE (23:28)
[2024-02-18 04:22] VITALS: TEMP 98.1
[2024-02-18 04:32] LABS: Basophils # (auto) 0.01 K/uL (0.00-0.20); Basophils % (auto) 0.1 %; Hematocrit (blood only) 23.3 % (37.0-47.0); Hemoglobin 7.7 g/dl (12.0-16.0); Immature Granulocytes # (auto) 0.17 K/uL (0.01-0.20); Lymphocytes # (auto) 0.79 K/uL (1.20-3.40); Lymphocytes % (auto) 9.3 %; Mean Corpuscular Hemoglobin 28.1 pg (25.0-34.0); Mean Platelet Volume 10.8 fL (9.4-12.4); Monocytes # (auto) 0.12 K/uL (0.11-0.59); Monocytes % (auto) 1.4 %; Neutrophils # (auto) 7.37 K/uL (1.40-6.50); Neutrophils % (auto) 87.2 %; Platelet Count 214 K/uL (130-400); RDW Coefficient of Variation 18.6 % (11.5-14.5); RDW Standard Deviation 58.1 fL (36.4-46.3); Red Blood Count 2.74 M/uL (4.20-5.40); White Blood Count 8.46 K/ul (4.8-10.8)
[2024-02-18 04:48] LABS: BUN Creatinine Ratio 27.8 (10-20); Calcium 7.7 mg/dl (8.6-10.3); Creatinine Clr Calc Pharmacy 13.4 ml/min; Magnesium 2.6 mg/dl (1.7-2.4); Potassium 3.9 mmol/L (3.5-5.1)
[2024-02-18 04:54] LABS: ANTI-Xa, UFH(UnfractionatedHep 0.36 IU/ml (0.3-0.7)
[2024-02-18 05:08] LABS: Polychromasia 1+
--- NOTE | 2024-02-18 07:48 | XRay Report ---
EXAM: XR chest 1V portable CLINICAL HISTORY: RESP FAILURE JTF/TGB TECHNIQUE: An X-ray image of the chest is obtained in frontal projection. COMPARISON: 02/16/2024. FINDINGS: ETT with its tip lying 2.7 cm above the daina (low position, unchanged since prior study). Right CVL with its tip in SVC. NGT noted in place. Pulmonary Parenchyma: A slight regressive course of the bilateral lung patchy air space opacities. Bilateral CP angles are obscured suggesting pleural effusion (unchanged). Heart and Mediastinum: Heart size and shape are normal. No mediastinal widening or masses. No hilar or mediastinal lymphadenopathy. Aortic atheromatous calcification. Bony Thorax: Bilateral shoulder replacement prosthesis. Mild spondylotic changes in the thoracic spine. Soft Tissues: Soft tissues overlying the chest wall are unremarkable IMPRESSION: 1. A slight regressive course of the bilateral lung patchy air space opacities. 2. ETT with its tip lying 2.7 cm above the daina (low position, unchanged since prior study), needs re-adjustment. Please assess clinically. 3. No other significant interval changes. Electronically signed by Ragini Solis 02-18-2024 07:48 AM
--- NOTE | 2024-02-18 08:14 | Critical Care Progress Note ---
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 Neuro - Currently intubated and sedated. Patient did well with sedation vacation this morning. She is awake, alert, and communicative. She is anxious to have breathing tube removed. Cardiac - Empirically being treated for PE. CTA on presentation showed no pulmonary embolism. Off vasopressors currently. Echo showed significant RV strain and pulmonary hypertension of unclear etiology. Continue Respiratory - Intubated due to hypoxemic hypercarbic respiratory failure and failed a trial of extubation requiring reintubation. Likely multifactorial due to combinations of bilateral pleural effusions as well as parenchymal lung disease. Cannot rule out potential ICI related pulmonary toxicity as her bronchoscopy specimens are negative. These nodules may also represent progression of disease. She could have lymphangitic spread as well. Cytology was negative. Will pursue high-dose steroids to see whether or not this might be an ICI toxicity. Patient weaned well this morning and is being prepared for extubation in the presence of family. Goal for terminal extubation with no intentions of reintubation. GI - Questionable GI bleed. Hemoglobin stable currently. Hold additional tra nsfusion was hemoglobin less than 7. Appreciate GI recommendations. Continue tube feeding RENAL/LYTES - Progressive renal insufficiency again this morning. Spoke with nephrology again this morning and he reiterates that there would be no intentions for hemodialysis in this patient. - Continue for now given need to trend intake and output ENDO - Glycemic control per protocol HEME - Patient has a history of 2 lung cancers. Her initial lung cancer was diagnosed in 2021, non-small cell lung cancer, favor adeno. She was treated with Tagrisso, however dose was reduced due to potential toxicity. She in November of this year was found to have a new mass which was biopsy-proven squamous cell carcinoma. She was treated with CarboTaxol and pembrolizumab. Is unclear when she received her last dose. The oncology notes indicate at least a stage IIIb. She is not felt to be a candidate for radiation therapy. The patient's current clinical condition would likely preclude additional chemotherapy given possibility of ICI toxicity and her kidney disease. ID - Patient is completed a full course of antibiotics. Cultures have remained negative. CODE STATUS - Palliative care was involved yesterday. Patient's CODE STATUS is DNR/DNI. After family had arrived in the room, I did have a conversation with the patient and family present. They are agreeable to planned extubation with no intentions for reintubation. In the event that the patient's breathing were to worsen or respiratory status would become compromised, we would transition promptly to comfort measures at that juncture. This was agreed upon the presence patient and family. --Prophylaxis VTE: Heparin drip GI: Pantoprazole Lines: Right-sided Port-A-Cath, peripheral Patient's Ryne [phone] I have personally spent 45 minutes of critical care time in the direct management of this patient. This is a life/limb threatening event. This includes time spent evaluating patient, direct bedside care, chart review, placing orders, interpretation of diagnostic studies, discussion with consultants, patient, and family members, as well as other required patient management activities. This time is exclusive of all separately billable procedures, and teaching time and separate from and in addition to any other critical care service time. Please note the above document was generated using voice recognition software. It may contain grammatical, syntax or spelling errors. Admission and Anticipated Discharge Date Admission Date: February 10, 2024 Supervising Physician Co-Signing Physician Notes Patient seen and examined. EMR reviewed. Discussed with critical care CAROLYN and agree with assessment plan as noted. Patient has been extubated. She will not undergo BiPAP or repeat intubation in the event of respiratory failure. Continue supportive care. If she does well, she can likely transfer to floor within the next 12 to 24 hours Subjective Patient seen and evaluated at bedside. No adverse events noted overnight. Weaning down sedation at this time and plan for SBT with extubation later this morning Review of Systems Review of Systems: As per subjective. Physical Exam Physical Exam: VITAL SIGNS - Vital signs and nursing notes were reviewed. GENERAL - 73-year-old female appearing her stated age who is intubated and sedated. SKIN - Without rashes. HEAD - NC/AT. NOSE - Midline and without cyanosis. MOUTH/OROPHARYNX - ETT/OGT in place. NECK - Supple to palpation. LUNGS - Chest wall symmetric without accessory muscle use, intercostals retractions, or central cyanosis. Normal vesicular breath sounds CTA B/L. No wheezes, rales, or rhonchi appreciated. CARDIAC - RRR with S1/S2. No murmur, rubs, or gallops appreciated. ABDOMEN - Abdominal contour flat without pulsations or visible masses. BS normoactive all four quadrants. No tenderness, palpable masses, hepatosplenomegaly, or ascites noted. EXTREMITIES - No clubbing or peripheral cyanosis. NEUROLOGIC -no focal neurological deficits on exam. Limited exam secondary to patient's sedation. Results & Data Results & Data Vital Signs (Past 12 Hours) Vital Signs Temp Pulse Resp BP Pulse Ox FiO2 02/18/24 07:25 74 02/18/24 07:05 74 21 94 30 02/18/24 06:12 75 18 92 02/18/24 05:30 106/57 L 02/18/24 05:27 77 18 91 02/18/24 05:07 105/52 L 02/18/24 05:07 105/52 L 02/18/24 05:03 78 18 91 02/18/24 05:00 79 18 91 02/18/24 04:21 36.7 C 02/18/24 04:00 80 18 92 02/18/24 03:58 76 18 93 30 02/18/24 03:30 114/55 L 02/18/24 03:24 76 19 94 02/18/24 02:00 112/57 L 02/18/24 02:00 78 19 112/57 L 91 02/18/24 01:30 111/59 L 02/18/24 01:27 85 16 90 02/18/24 01:03 88 19 115/58 L 92 02/18/24 00:30 117/58 L 02/18/24 00:18 89 18 95 02/18/24 00:00 128/59 L 02/18/24 00:00 90 21 91 02/17/24 23:59 89 02/17/24 23:55 36.8 C 02/17/24 23:30 80 18 124/63 95 02/17/24 23:13 90 18 99 30 02/17/24 22:54 85 18 95 02/17/24 22:30 122/64 02/17/24 22:09 92 H 18 100 02/17/24 22:00 87 16 141/70 H 95 02/17/24 21:30 120/58 L 02/17/24 21:12 83 17 93 02/17/24 21:03 81 19 119/58 L 91 02/17/24 20:57 83 17 91 02/17/24 20:39 88 16 94 02/17/24 20:27 80 18 114/61 96 Coding Level of Care Code 45745 CRITICAL CARE 1ST 30-74M Diagnoses Septic shock A41.9; R65.21 Hyponatremia E87.1 Peripheral vascular disease I73.9 Diabetes mellitus, type 2 E11.9 HTN (hypertension) I10 COPD (chronic obstructive pulmonary disease) J44.9 Lung cancer C34.90 Anxiety F41.9 Respiratory failure, acute and chronic J96.21 Respiratory failure complication: hypoxia [place] (acute kidney injury) N17.9 (9) Respiratory failure, acute and chronic Respiratory failure complication: hypoxia Qualified Code(s): J96.21 - Acute and chronic respiratory failure with hypoxia
--- NOTE | 2024-02-18 10:05 | Nephrology Progress Note ---
Date of Service February 18, 2024 Assessment & Plan Admission and Anticipated Discharge Date Admission Date: February 10, 2024 Subjective Assessment & Plan (1) Acute kidney injury (nontraumatic): Plan: No longer oliguric stage 3 (d/t UOP) KY on CKD 4 (baseline creatinine 1.6-2.0 in 2023 though more 1.6-1.7 w/ stable weight December). Creat continues to rise but very slowly. s/p IV contrast for CTA chest 02/09. reviewed OP records. no prior bicarb drops or e/o metabolic acidosis [employer]. she has improving AG now and no acidemia; doubt role for Farxiga related ketoacidosis. presume ischemic ATN given hypotension, anemia and IV contrast. Slow decline in renal functions continue, Cr 3.38 which is same as yesterday. urine output did drop and starting to get some Pulm edema and got iv lasix yesterday. Will give lasix 60 mg iv bid Replace K to keep levels> 4.0. no need for IVF daily bmp Unlikely to need dialysis this admission. In any case doing dialysis in patient with what appears like metastatic terminal Cancer is not a good idea. Given [place] unlikely she can have further chemo at this time. she remains critically ill however. Family discussion and Possible palliative med Consult done. patient had previously told no dialysis. Will confirm this once extubated. (2) Hyponatremia: Plan: improving and now this AM 135. Likely will go higher withIV Bumex. presented w/ sNa 122 and dropped to 118 by 0100 02/10. 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 -sodium 135 today -monitor daily (3) CKD (chronic kidney disease) stage 4, GFR 15-29 ml/min: Plan: CKD 4 though past month w/ some improvement in creatinine (more 1.6-1.7) and wt maintained. follows w/ Dr Ellis (4) Hypomagnesemia: Plan: mild; on eagle based therapy monitor daily. mag normal today (5) Respiratory failure, acute and chronic: Plan: Now intubated. (6) Lung cancer: Plan: on VEGF/TK inhibitor AND taxol / carboplatin/ ketruda and on intermittent decadron (last tx 01/22) (7) Pneumonia: Plan: severe; multilobar; cavitary lesions on imaging RLL, JAKE Conintue zosyn/doxy Above plan and care co-ordination discussed with ICU and Hospitalist. Subjective she had to be reintubated for respiratory distress but there is plan for extubation soon Getting tube feeds. BP is fine without need of pressors. UOP was slowing so got iv lasix yesterday. Physical Exam Constitutional: Intubated on vent. Critically ill Eyes: EOM intact bilaterally ENMT: Mouth: + dry oral mucous membranes Neck: no nuchal rigidity Respiratory: Intubated on vent. + diminished lung sounds Cardiovascular: Rate/Rhythm: regular rate and regular rhythm Extremities: + edema (Trace peripheral) Gastrointestinal (Abdomen): abdomen soft nontender Musculoskeletal: Extremities: strength 5/5 throughout Skin: no rashes, warm and dry Results & Data Vital Signs (Past 12 Hours) Vital Signs Temp Pulse Resp BP Pulse Ox FiO2 02/18/24 09:20 89 16 96 30 02/18/24 07:25 74 02/18/24 07:05 74 21 94 30 02/18/24 06:12 75 18 92 02/18/24 05:30 106/57 L 02/18/24 05:27 77 18 91 02/18/24 05:07 105/52 L 02/18/24 05:07 105/52 L 02/18/24 05:03 78 18 91 02/18/24 05:00 79 18 91 02/18/24 04:21 36.7 C 02/18/24 04:00 80 18 92 02/18/24 03:58 76 18 93 30 02/18/24 03:30 114/55 L 02/18/24 03:24 76 19 94 02/18/24 02:00 112/57 L 02/18/24 02:00 78 19 112/57 L 91 02/18/24 01:30 111/59 L 02/18/24 01:27 85 16 90 02/18/24 01:03 88 19 115/58 L 92 02/18/24 00:30 117/58 L 02/18/24 00:18 89 18 95 02/18/24 00:00 128/59 L 02/18/24 00:00 90 21 91 02/17/24 23:59 89 02/17/24 23:55 36.8 C 02/17/24 23:30 80 18 124/63 95 02/17/24 23:13 90 18 99 30 02/17/24 22:54 85 18 95 02/17/24 22:30 122/64 02/17/24 22:09 92 H 18 100
--- NOTE | 2024-02-18 10:43 | Hospitalist Progress Note ---
Date of Service February 18, 2024 Assessment & Plan (1) Encephalopathy: Plan: 73-year-old lady with PMH of PVD s/p surgery, moderate MR [TTE 2021], atrial septal aneurysm, lung adenocarcinoma on Tagrisso, squamous cell carcinoma of the lung on chemotherapy, COPD, DM2 on oral meds, CKD [baseline creatinine of 1.6- 1.7], chronic hyponatremia secondary to SIADH, chronic anemia [baseline hemoglobin of 9], GERD, cervical intraepithelial neoplasm status post surgery, migraine, anxiety/mood disorder, ongoing tobacco abuse was brought to the ED with complaint of not feeling well for the last few weeks, not eating well and increasingly getting weak in the last few days, patient fell at home from being dizzy about 3 days ago [employer] and has been sleeping all day and not urinating much. Patient also noted to have cough with shortness of breath, had been complaining of abdominal discomfort but denied black or bloody stool. Multifocal pneumonia Severe sepsis with shock in an immunocompromised patient Acute Hypoxic respiratory failure Metabolic encephalopathy Possible adrenal insufficiency: given intermittent Decadron Rx during chemotherapy. Random cortisol wnl. Pt on hydrocortisone in ICU. Acute right upper extremity DVT Patient presenting with cough and shortness of breath, had systolic blood pressure in 70s. Results of admitting CXR and CTA chest reviewed.Concerning for multifocal pneumonia Patient was admitted to ICU for vasopressor support. Patient was intubated on 02/10 due to progressive hypoxia/agitation Patient underwent bronchoscopy after intubation; thick grayish-white secretions appreciated in the trachea, daina and predominantly in bilateral lower lobe and left upper lobe. Bronchoalveolar lavage was obtained Patient extubated successfully on 02/13; However patient required reintubation on 02/15 due to respiratory stress. Noticed to have right upper extremity swelling on 02/13; Venous duplex shows; DVT in right internal jugular, subclavian and axillary vein;On heparin drip; continue. Completed 7 days of antibiotics. On methylprednisolone as per ICU Blood culture and sputum negative till date Acute kidney injury over CKD Baseline creatinine around 1.6-1.8, admitting creatinine of 2.8; Likely ischemic ATN given septic shock, anemia. Currently on Lasix 60 mg twice daily as per nephrology. Acute on chronic hyponatremia: Patient with chronic hyponatremia secondary to SIADH. Sodium level around 130. Admitting sodium level of 122. Sodium slowly improving, currently at 132. Acute on chronic anemia: Baseline hemoglobin around 9, admitting hemoglobin of 6.9, FOBT done in the ED was positive. Status post 2 unit PRBC, currently hemoglobin around 8 GI on board, continue with PPI, no plan for current intervention. Monitor H&H, transfuse for hemoglobin less than 7. Currently on heparin drip for DVT Type II NSTEMI: Patient with elevated troponin at presentation, down trended. EKG with no acute ST or T changes. Echo with EF of 60 to 65%, LV systolic function normal, no regional wall motion abnormalities of LV noted. Demand ischemia secondary to acute illness. Continue telemetry. Right ankle fracture: Right ankle x-ray with age-indeterminate fracture of proximal tip of the fifth metatarsal tubercle. Examination does not reveal any deformity/pain. No hx of trauma Other chronic medical conditions: Continue with/resume home meds as and when able. Two lung primary malignancies ongoing chemotherapy/Tagrisso Rx: Hold Rx due to acute illness. CTAP with concern for pelvic bone metastasis, will need follow up with her oncologist. hx PVD status post stent moderate MR (TTE 2021) atrial septal aneurysm as per records DM2 on oral medications, well-controlled as of recent hemoglobin A1c of 5.02 July 2023 ongoing tobacco abuse DVT prophylaxis. heparin drip DNR/DNI as per Palliative care discussion with family Time spent evaluating patient, direct bedside care, chart review, placing orders, interpretation of diagnostic studies, as well as other required patient management activities is 50 minutes Please note the above document was generated using voice recognition software. It may contain grammatical, syntax or spelling errors. Any formal questions or concerns about the content, text or information contained within the body of this dictation should be directly addressed to the provider for clarification Admission and Anticipated Discharge Date Admission Date: February 10, 2024 Subjective Patient patient seen and examined at bedside. Sedation has been turned off and she is awake and able to follow commands Vital signs are stable and patient is on minimal vent settings Review of Systems Review of Systems: All systems reviewed & are unremarkable except as noted in Subjective Physical Exam Physical Exam: Constitutional: Mechanically ventilated. Awake. Respiratory: Bilateral mechanical breath sound. Cardiovascular: RRR, no murmur, no edema Vessels: no JVD or carotid bruit Chest: normal inspection of chest Abdomen: normal bowel sounds, soft, nontender, no hepatosplenomegaly Musculoskeletal: no cyanosis or clubbing, extremities motor strength 5/5 Skin: no rashes, warm and dry normal turgor Neurologic: PERRL, EOMI, accommodation nl, no face palsy and moves all extremities Results & Data Results & Data Vital Signs (Past 12 Hours) Vital Signs Temp Pulse Resp BP Pulse Ox FiO2 02/18/24 09:20 89 16 96 30 02/18/24 07:25 74 02/18/24 07:05 74 21 94 30 02/18/24 06:12 75 18 92 02/18/24 05:30 106/57 L 02/18/24 05:27 77 18 91 02/18/24 05:07 105/52 L 02/18/24 05:07 105/52 L 02/18/24 05:03 78 18 91 02/18/24 05:00 79 18 91 02/18/24 04:21 36.7 C 02/18/24 04:00 80 18 92 02/18/24 03:58 76 18 93 30 02/18/24 03:30 114/55 L 02/18/24 03:24 76 19 94 02/18/24 02:00 112/57 L 02/18/24 02:00 78 19 112/57 L 91 02/18/24 01:30 111/59 L 02/18/24 01:27 85 16 90 02/18/24 01:03 88 19 115/58 L 92 02/18/24 00:30 117/58 L 02/18/24 00:18 89 18 95 02/18/24 00:00 128/59 L 02/18/24 00:00 90 21 91 02/17/24 23:59 89 02/17/24 23:55 36.8 C 02/17/24 23:30 80 18 124/63 95 02/17/24 23:13 90 18 99 30 02/17/24 22:54 85 18 95
--- NOTE | 2024-02-18 18:17 | Electrocardiogram Report ---
Test Reason : Blood Pressure : */* mmHG Vent. Rate : 85 BPM Atrial Rate : 85 BPM P-R Int : 186 ms QRS Dur : 94 ms QT Int : 380 ms P-R-T Axes : 87 80 -70 degrees QTcB Int : 452 ms Normal sinus rhythm T wave abnormality, consider inferior ischemia Abnormal ECG When compared with ECG of 14-Feb-2024 20:52, T wave inversion now evident in Inferior leads Nonspecific T wave abnormality now evident in Lateral leads Confirmed by Andrea Velásquez ([id number]) on 02/18/2024 6:17:02 PM Referred By: REFERRED SELF Confirmed By: Andrea Velásquez
--- NOTE | 2024-02-18 21:35 | Palliative Care Progress Note ---
Date of Service February 18, 2024 Assessment & Plan (1) Lung cancer: (2) Pneumonia: (3) Respiratory failure, acute and chronic: (4) Acute on chronic renal insufficiency: (5) Anemia: (6) Counseling regarding goals of care: Plan 73-year-old female with past medical history significant for COPD, lung cancer x 2 (initially adenocarcinoma status post Tagrisso, now with squamous cell carcinoma status post CarboTaxol with unknown immune therapy), anxiety and depression, peripheral vascular disease, DM type II, HLD, HTN who is admitted to the ICU with septic shock requiring vasopressor support and recurrent respiratory failure requiring intubation x 2 this hospitalization. Extubated today currently on TX. 1) Lung cancer: per primary/[facility] oncologist Dr Lopez (2) Pneumonia: continue medical management per primary Laterality: left Lung location: lower lobe of lung Pneumonia type: due to unspecified organism Qualified Code(s): J18.9 - Pneumonia, unspecified organism (3) Respiratory failure, acute and chronic: Has been extubated to [place], she appears in NAD, but per nursing staff she does experience some moderate hypoxia when sleeping. Pt is now DNR/DNI per pt wishes and spouse request. (4) Acute on chronic renal insufficiency: management per nephrology. (5) Anemia: management per primary Anemia type: unspecified type Qualified Code(s): D64.9 - Anemia, unspecified Present on Admission?: Yes (6) Counseling regarding goals of care: No family at bedside today. Spoke briefly with pt, she was oriented to person and place but lacks decisional capacity based on inability to convey a clear understanding of her PMHx or hospital course and lack understanding of extent of her cancer, prognosis or treatment options. She does require a proxy for medical decisions. In absence of documented wishes (LW/AD), per [place] [id number], legal proxy for medical decisions would be the pt's current spouse (Ryne Tressa [phone]) and any adult children from previous relationship WITH EQUAL DECISIONAL POWER. Pt has one adult daughter from previous marriage. Patient did convey that she would not wish to be intubated/mechanically ventilated nor resuscitated in event of pulmonary or cardiovascular decompensation. This is consistent with her legal MDM proxies expressed wishes. Attempted to contact pt's spouse Ryne by phone, no answer, general VM left. Per previous conversations with pt's spouse and dtr, if pt decompensates post extubation they request transition to comfort directed care. Palliative care will continue follow to assist with ongoing goal planning. Admission and Anticipated Discharge Date Admission Date: February 10, 2024 Subjective pt seen and evaluated in ICU, no family present. She had been extubated this afternoon and is A&Ox3, NAD on nc. Review of Systems Constitutional: + fatigue and + weakness Eyes: + problem reported Ear, Nose, Mouth, Throat: + dry mouth, + sore throat and + pain wi th swallowing Respiratory: + cough Cardiovascular: + edema; no chest pain Gastrointestinal: + pain with swallowing; no abdominal susanne n, no heartburn and no nausea Musculoskeletal: + muscle weakness Physical Exam Physical Exam: Constitutional: + ill appearing, + altered mental status and + frail appearing; no acute distress Eyes: PERRL Respiratory: Auscultation: + diminished lung sounds and + crackles tachypneic on nc Cardiovascular: Rate/Rhythm: + tachycardic and + irregularly irregular Heart Sounds: normal S1 and normal S2 Extremities: + edema Gastrointestinal (Abdomen): normal bowel sounds, soft, nontender, no hepatosplenomegaly Musculoskeletal: peripheral edema and generalized weakness Neurologic: PERRL, EOMI, accommodation nl, no face palsy, no dysarthria general weakness Results & Data Vital Signs (Past 12 Hours) Vital Signs Pulse Pulse Resp BP Pulse Ox O2 Del Method O2 Flow Rate 02/18/24 19:35 93 H 14 95 Nasal Cannula 2 02/18/24 17:03 90 23 93 02/18/24 17:00 148/74 H 02/18/24 17:00 148/74 H 02/18/24 17:00 148/74 H 02/18/24 16:33 92 H 17 92 02/18/24 16:00 141/71 H 02/18/24 16:00 141/71 H 02/18/24 16:00 141/71 H 02/18/24 16:00 88 15 90 02/18/24 15:30 93 H 19 93 02/18/24 15:30 143/69 H 02/18/24 15:30 143/69 H 02/18/24 15:00 89 17 90 02/18/24 15:00 145/67 H 02/18/24 15:00 145/67 H 02/18/24 14:59 91 H 02/18/24 14:31 131/63 02/18/24 14:18 89 21 91 02/18/24 14:00 92 H 19 91 02/18/24 14:00 138/67 02/18/24 13:33 94 H 16 92 02/18/24 13:30 135/69 02/18/24 13:30 135/69 02/18/24 13:21 94 H 17 91 Nasal Cannula 02/18/24 13:03 94 H 19 91 Nasal Cannula 02/18/24 13:00 136/65 02/18/24 13:00 136/65 02/18/24 13:00 136/65 02/18/24 13:00 136/65 02/18/24 12:42 97 H 25 H 90 Nasal Cannula 02/18/24 12:00 96 H 17 90 Nasal Cannula 02/18/24 12:00 148/71 H 02/18/24 12:00 148/71 H 02/18/24 12:00 148/71 H 02/18/24 12:00 148/71 H 02/18/24 11:30 150/74 H 02/18/24 11:24 96 H 15 95 Nasal Cannula 02/18/24 11:24 151/72 H 02/18/24 11:24 151/72 H 02/18/24 11:03 94 H 14 96 Nasal Cannula 02/18/24 11:00 152/72 H 02/18/24 10:54 94 H 14 96 Nasal Cannula 02/18/24 10:39 95 H 13 96 Nasal Cannula 02/18/24 10:30 148/73 H 02/18/24 10:30 148/73 H 02/18/24 10:24 90 95 02/18/24 10:00 96 H 12 96 02/18/24 10:00 149/77 H Laboratory Results Abnormal lab results 02/17/24 02/17/24 02/18/24 Range/Units 21:36 23:38 04:06 RBC 2.74 L (4.20-5.40) M/uL Hgb 7.7 L (12.0-16.0) g/dl Hct 23.3 L (37.0-47.0) % RDW Std Deviation 58.1 H (36.4-46.3) fL RDW Coeff of Lara 18.6 H (11.5-14.5) % Neut # (Auto) 7.37 H (1.40-6.50) K/uL Lymph # (Auto) 0.79 L (1.20-3.40) K/uL Sodium 130 L 132 L (136-145) mmol/L Potassium 3.3 L (3.5-5.1) mmol/L Chloride 95 L (98-107) mmol/L Carbon Dioxide 19 L 18 L (21-32) mmol/L Anion Gap 16 H 15 H (3-11) BUN 91 H 94 H (6-23) mg/dl Creatinine 3.30 H 3.38 H (0.6-1.2) mg/dl BUN/Creatinine Ratio 27.6 H 27.8 H (10-20) Glucose 292 H 226 H (70-99(Fasting)) mg/dl POC Glucose 267 H (70-99) mg/dl Calcium 8.0 L 7.7 L (8.6-10.3) mg/dl Magnesium 2.6 H (1.7-2.4) mg/dl 02/18/24 02/18/24 02/18/24 Range/Units 05:26 12:06 17:40 RBC (4.20-5.40) M/uL Hgb (12.0-16.0) g/dl Hct (37.0-47.0) % RDW Std Deviation (36.4-46.3) fL RDW Coeff of Lara (11.5-14.5) % Neut # (Auto) (1.40-6.50) K/uL Lymph # (Auto) (1.20-3.40) K/uL Sodium (136-145) mmol/L Potassium (3.5-5.1) mmol/L Chloride (98-107) mmol/L Carbon Dioxide (21-32) mmol/L Anion Gap (3-11) BUN (6-23) mg/dl Creatinine (0.6-1.2) mg/dl BUN/Creatinine Ratio (10-20) Glucose (70-99(Fasting)) mg/dl POC Glucose 218 H 229 H 151 H (70-99) mg/dl Calcium (8.6-10.3) mg/dl Magnesium (1.7-2.4) mg/dl Diagnostic Findings Pelvis X-Ray 02/10/24 16:21 EXAM: Radiographs of the Pelvis 1 View INDICATION: Fall. TECHNIQUE: Frontal view of the pelvis. COMPARISON: No relevant prior studies available. FINDINGS: Limitations: None. Bones/joints: Visualized bilateral hip prostheses well-seated. No dislocation or fracture noted in 1 year. Soft tissues: No abnormality noted. No radiopaque foreign body noted. Vasculature: Atherosclerosis of the abdominal aorta noted with a stent projecting to the left of the L4 vertebra possibly in the left renal artery. IMPRESSION: No pelvic fracture noted. ACT 112: Negative or not required by law. Electronically signed by Anny Pelayo 02-10-2024 6:10 PM Ankle X-Ray 02/10/24 17:40 EXAM: Radiographs of the Right Ankle 3 Views INDICATION: Fall. TECHNIQUE: Frontal, lateral and oblique views of the right ankle. COMPARISON: No relevant prior studies available. FINDINGS: Limitations: None. Bones/joints: There is mild spurring along the medial malleolus presumably related to previous trauma. Well-corticated ossicle seen on the lateral view projecting at the talar neck. There is a defined lucency at the proximal tip of the fifth metatarsal tubercle with small adjacent well-corticated ossification. Ankle mortise intact. Soft tissues: Mild periarticular soft tissue swelling. No soft tissue gas collection or radiopaque foreign body. IMPRESSION: Age-indeterminate fracture proximal tip of the fifth metatarsal tubercle. ACT 112: Negative or not required by law. Electronically signed by Anny Pelayo 02-10-2024 6:[address] 02/10/24 17:50 Exam(s): CT C SPINE EXAM: CT Cervical Spine Without Intravenous Contrast CLINICAL HISTORY: Reason for exam: lung CA, fall, hip pain. TECHNIQUE: Axial computed tomography images of the cervical spine without intravenous contrast. CTDI is 19.93 mGy and DLP is 693.39 mGy-cm. Automated exposure control was utilized for the study. A dose lowering technique was utilized adhering to the principles of ALARA. COMPARISON: No relevant prior studies available. FINDINGS: Vertebrae: No fracture or malalignment. Severe degenerative disc disease at C3-4, C4-5, C5-6, and C6-7. No severe spinal canal stenosis. Multilevel foraminal stenosis of variable degrees. Soft tissues: Interstitial thickening and nodularity at the left lung apex. IMPRESSION: 1. No fracture within the cervical spine. 2. Interstitial thickening and nodularity at the left lung apex. Electronically signed by: Felix Russell MD 02/10/24 21:19 PM Chest CTA 02/10/24 17:50 Exam(s): CTA CHEST IV Amt: 117 cc opti 320 EXAM: CT Angiography Chest With Intravenous Contrast CLINICAL HISTORY: Reason for exam: lung CA, Trop 4700, r/o pe. TECHNIQUE: Axial computed tomographic angiography images of the chest with intravenous contrast. CTDI is 34.77 mGy and DLP is 624.41 mGy-cm. Automated exposure control was utilized for the study. A dose lowering technique was utilized adhering to the principles of ALARA. MIP reconstructed images were created and reviewed. COMPARISON: No relevant prior studies available. FINDINGS: Pulmonary arteries: No pulmonary embolism. Aorta: No acute findings. Normal caliber. No dissection. Lungs: Extensive consolidation in the left lower lobe. More nodular appearing lesions in the left upper lobe some of which demonstrate early cavitation. Cavitating lesion in the right lower lobe with wall thickening measuring up to 4.3 cm. Heterogeneous opacity in the right upper lobe with what appears to be a peripheral rim measuring 4.3 cm (series 10 image 88). Linear nodularity in the posterior right upper lobe measuring 3.7 x 1.5 cm. Pleural space: Unremarkable. Heart: Heart size mildly prominent. Severe CAD. Mediastinum: Moderate hiatal hernia. Bones/joints: No acute fracture. Soft tissues: Unremarkable. Lymph nodes: Unremarkable. IMPRESSION: 1. No pulmonary embolism. 2. Extensive consolidation in the left lower lobe. 3. More nodular appearing lesions in the left upper lobe some of which demonstrate early cavitation. 4. Cavitating lesion in the right lower lobe with wall thickening measuring up to 4.3 cm. 5. Heterogeneous opacity in the right upper lobe with what appears to be a peripheral rim measuring 4.3 cm (series 10 image 88). 6. Linear nodularity in the posterior right upper lobe measuring 3.7 x 1. 5 cm. 7. Moderate hiatal hernia. 8. Heart size mildly prominent. Severe CAD. Electronically signed by: Felix Russell MD 02/10/24 19:[address] 02/10/24 17:50 CR Exam(s): CT HEAD Without Contrast EXAM: CT Head Without Intravenous Contrast CLINICAL HISTORY: Reason for exam: lung CA, fall, pain. TECHNIQUE: Axial computed tomography images of the head/brain without intravenous contrast. CTDI is 34.77 mGy and DLP is 624.41 mGy-cm. Automated exposure control was utilized for the study. A dose lowering technique was utilized adhering to the principles of ALARA. COMPARISON: No relevant prior studies available. FINDINGS: Artifacts: Images are degraded by motion artifact. Brain: No hemorrhage, extra-axial fluid collection, mass effect, or edema. Age indeterminate infarct within the right parietal cortex (series 5 image 11). Ventricles: Unremarkable. Bones/joints: Unremarkable. No fracture. Soft tissues: Unremarkable. Sinuses: No acute sinusitis. Mastoid air cells: Unremarkable as visualized. IMPRESSION: 1. No intracranial hemorrhage or traumatic injury identified. 2. 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 Correlate clinically. Consider MRI if there is concern for acute ischemia. Communications: Verify Receipt Electronically signed by: Felix Russell MD 02/10/24 20:58 PM Venous Doppler Study 02/14/24 00:00 RIGHT UPPER EXTREMITY VENOUS DOPPLER ULTRASOUND CLINICAL HISTORY: rule out DVT COMPARISON STUDY: No previous studies for comparison. TECHNIQUE: Sonography of the deep venous system of the right upper extremity was performed. FINDINGS: There is deep venous thrombus within the right internal jugular, subclavian and axillary veins. Thrombus is noted adjacent to the right internal jugular [id number]. There is also superficial thrombus within the right basilic vein. IMPRESSION: 1. Positive study with deep venous thrombus within the right internal jugular, subclavian and axillary veins. Thrombus adjacent to the right internal jugular [id number]. 2. Superficial thrombus within the right basilic vein. ACT 112: Negative or not required by law. Electronically signed by: Abel Roberson M.D. 02/14/2024 1:[address] 02/16/24 08:47 CT OF THE CHEST WITHOUT IV CONTRAST CLINICAL HISTORY: Worsening hypoxia. Lung cancer. COMPARISON STUDY: Chest radiograph performed earlier today. Chest CT February 10, 2024. CT DOSE: 2221.55 mGy.cm TECHNIQUE: Axial images of the chest were obtained without IV contrast. Images were reviewed in the axial, sagittal, and coronal planes. IV contrast was not administered for this examination. Automated exposure control was utilized for the study. A dose lowering technique was utilized adhering to the principles of ALARA. FINDINGS: A right internal jugular [id number] is in place. Tip of endotracheal tube is just above the daina. Tip of nasogastric tube is within the stomach. There is no pneumothorax. Small to moderate right and small left pleural effusions have increased since CT of February 10, 2024. Prominent mediastinal lymph nodes are unchanged. These are suboptimally assessed on unenhanced exam. There is a moderate sized hiatal hernia. Underlying emphysema. Interlobular septal thickening is present. A cavitary right lower lobe lesion measuring 4.3 x 3.5 cm is again noted. This lesion is spiculated with irregular thickened wall. Right upper lobe irregular density measures 4.2 cm. This may also be neoplastic. Multiple cavitary left upper lobe nodules are again noted. These are stable to slightly improved since prior exam. Extensive left upper lobe and left lower lobe consolidation has progressed. Right lung airspace opacities have also increased. The abdomen and pelvis CT will be reported se parately. There is body wall edema. IMPRESSION: 1. Satisfactory positioning of the endotracheal and nasogastric tubes. 2. Progression of extensive bilateral airspace opacities, greater within the left lung. The findings suggest pneumonia or aspiration pneumonitis. 3. Redemonstration of several suspicious right lung lesions, including a spiculated cavitary 4.3 x 3.5 cm lesion suggestive of primary lung neoplasm. 4. Stable to slight improvement in multiple irregular left upper lobe nodules, several of which are cavitary. These may be infectious or neoplastic. 5. Persistent interlobular septal thickening. This favors pulmonary edema although lymphangitic tumor could appear similar. 6. Increase in small to moderate right and small left pleural effusions. No pneumothorax. ACT 112: Negative or not required by law. Electronically signed by: Abel Roberson M.D. 02/16/2024 10:12 AM Abdomen/Pelvis CT 02/16/24 09:12 CT OF THE ABDOMEN AND PELVIS WITHOUT CONTRAST CLINICAL HISTORY: R/o Bleed COMPARISON STUDY: CT of the abdomen and pelvis February 10, 2024. TECHNIQUE: Axial images of the abdomen and pelvis were obtained without IV contrast. Images were reviewed in the axial, sagittal, and coronal planes. Automated exposure control was utilized for the study. A dose lowering technique was utilized adhering to the principles of ALARA. FINDINGS: Please note that the chest CT will be reported separately. Bilateral pleural effusions with extensive lower lung airspace opacities are better depicted on that exam. Tip of nasogastric tube is within the body of the stomach. Evaluation of the abdomen and pelvis is suboptimal on this unenhanced examination. No retroperitoneal hematoma is present. There is no hemoperitoneum. Unenhanced images of the liver, spleen, adrenal glands, kidneys and pancreas are unremarkable with the exception of moderate left renal atrophy. There is a 4.3 x 4 cm infrarenal abdominal aortic aneurysm with extensive aortoiliac atherosclerotic plaque. There is no evidence for rupture. Left common iliac artery stent is in place. Images of the pelvis are degraded by streak artifact from bilateral hip arthroplasties. Body wall edema is present. There is no evidence for a bowel obstruction. No bowel wall thickening is identified on unenhanced exam. There is colonic diverticulosis without evidence for acute diverticulitis. Moderate-sized hilar hernia. IMPRESSION: 1. No retroperitoneal hematoma. No hemoperitoneum. 2. No bowel obstruction. 3. 4.4 cm infrarenal abdominal aortic aneurysm. Extensive aortoiliac atherosclerotic plaque. No evidence for rupture. 4. Anasarca. 5. Bilateral pleural effusions and extensive lower lung airspace opacity suggestive of pneumonia or aspiration pneumonitis, better depicted on the chest CT which will be reported separately. ACT 112: Negative or not required by law. Electronically signed by: Abel Roberson M.D. 02/16/2024 10:17 AM Chest X-Ray 02/18/24 07:00 EXAM: XR chest 1V portable CLINICAL HISTORY: RESP FAILURE JTF/TGB TECHNIQUE: An X-ray image of the chest is obtained in frontal projection. COMPARISON: 02/16/2024. FINDINGS: ETT with its tip lying 2.7 cm above the daina (low position, unchanged since prior study). Right CVL with its tip in SVC. NGT noted in place. Pulmonary Parenchyma: A slight regressive course of the bilateral lung patchy air space opacities. Bilateral CP angles are obscured suggesting pleural effusion (unchanged). Heart and Mediastinum: Heart size and shape are normal. No mediastinal widening or masses. No hilar or mediastinal lymphadenopathy. Aortic atheromatous calcification. Bony Thorax: Bilateral shoulder replacement prosthesis. Mild spondylotic changes in the thoracic spine. Soft Tissues: Soft tissues overlying the chest wall are unremarkable IMPRESSION: 1. A slight regressive course of the bilateral lung patchy air space opacities. 2. ETT with its tip lying 2.7 cm above the daina (low position, unchanged since prior study), needs re-adjustment. Please assess clinically. 3. No other significant interval changes. Electronically signed by Ragini Solis 02-18-2024 07:48 AM Medications Administered Current Inpatient Medications Acetaminophen (Acetaminophen 325 Mg Tab) 650 mg PO QID PRN PRN Reason: pain/fever Stop: 03/11/24 21:54 Albuterol (Albut/Ipratrop 3mg/0.5mg Neb 3 Ml Vial) 3 ml NEB Q6R PRN; Protocol PRN Reason: Shortness Of Breath Or Wheezing Stop: 03/17/24 09:36 Budesonide (Budesonide 0.5 Mg/2 Ml Vial (Pulmicort)) 0.5 mg NEB BIDR [facility] Stop: 03/17/24 18:59 Last Admin: 02/18/24 19:34 Dose: 0.5 mg Bupropion HCl (Bupropion Hcl 100 Mg Tablet) 100 mg PO BID [facility] Stop: 03/16/24 13:59 Last Admin: 02/18/24 20:08 Dose: 100 mg Dextrose (Dextrose 50% 50 Ml Syringe) 25 - 50 ml IV UD PRN; Protocol PRN Reason: Hypoglycemia Protocol Stop: 03/11/24 22:53 Formoterol Fumarate (Formoterol 20 Mcg/2 Ml Vial) 20 mcg INH BIDR [facility] Stop: 03/17/24 18:59 Last Admin: 02/18/24 19:34 Dose: 20 mcg Furosemide (Furosemide 40 Mg/4 Ml Vial) 60 mg IV BID17 [facility] Stop: 03/18/24 10:29 Last Admin: 02/18/24 17:39 Dose: 60 mg Glucagon (Glucagon For Inj 1 Mg Vial) 1 mg SQ UD PRN; Protocol PRN Reason: Hypoglycemia Protocol Stop: 03/11/24 22:53 Glucose (Glucose 40% Gel 15 Gm Tube) 15 - 30 gm PO UD PRN; Protocol PRN Reason: Hypoglycemia Protocol Stop: 03/11/24 22:53 Glucose (Glucose 10 Tab/Tube) 4 - 8 tab PO UD PRN; Protocol PRN Reason: Hypoglycemia Protocol Stop: 03/11/24 22:53 Hydralazine HCl (Hydralazine Hcl 20 Mg/Ml Vial) 5 mg IV Q4H PRN PRN Reason: SBP > 160 sustained Stop: 03/15/24 22:49 Promethazine HCl (Phenergan) 6.25 mg in 50.25 mls @ 201 mls/hr IV Q6H PRN PRN Reason: Nausea And Vomiting Stop: 03/11/24 21:54 Pantoprazole Sodium (Protonix) 40 mg in 10 mls @ 5 mls/min IV BID [facility] Stop: 03/12/24 08:59 Last Admin: 02/18/24 20:08 Dose: 5 mls/min Heparin Sodium/Dextrose (Heparin Sodium/Dextrose) 25,000 units in 500 mls @ 19 mls/hr IV .Q24H [facility]; Protocol Stop: 03/15/24 14:14 Last Titration: 02/18/24 07:00 Dose: 950 units/hr, 19 mls/hr Norepinephrine Bitartrate (Levophed/D5w) 4 mg in 250 mls @ 0 mls/hr IV .Q0M [facility]; Protocol Stop: 03/17/24 04:44 Last Admin: 02/17/24 08:41 Dose: Not Given Methylprednisolone 125 mg/ (Syringe) 2 mls @ 0.667 mls/min IV Q6H [facility] Stop: 03/18/24 10:29 Last Admin: 02/18/24 17:39 Dose: 0.667 mls/min Insulin Aspart (Insulin Aspart Per Unit Charge) 0 units SC Q6 [facility] Stop: 03/18/24 00:00 Last Admin: 02/18/24 17:40 Dose: Not Given Metoprolol Tartrate (Metoprolol Tartrate 1 Mg/Ml Vial) 5 mg IV Q4 PRN PRN Reason: HR > 110 sustained Stop: 03/16/24 03:59 Last Admin: 02/15/24 00:25 Dose: 5 mg Miscellaneous (Carbohydrates For Hypoglycemia ) 15 - 30 gm PO UD PRN PRN Reason: Hypoglycemia Protocol Stop: 03/11/24 22:53 Trazodone HCl (Trazodone Hcl 100 Mg Tab) 100 mg PO DAILY [facility] Stop: 03/16/24 14:29 Last Admin: 02/15/24 14:32 Dose: 100 mg Venlafaxine HCl (Venlafaxine Hcl Xr 150 Mg Capxr) 150 mg PO DAILY [facility] Stop: 03/16/24 14:29 Last Admin: 02/15/24 14:45 Dose: 150 mg Venlafaxine HCl (Venlafaxine Hcl 37.5 Mg Tab) 75 mg PO BID [facility] Stop: 03/17/24 09:59 Last Admin: 02/18/24 20:08 Dose: 75 mg PG Care Time/CCT Total # of Minutes Spent Total Time Spent with Patient: Total time spent is greater than 50% in coordination of care (as documented) at patient's floor/unit and/or counseling patient: Coding [place] [address] SUB INP/OBS CARE 2/35MIN Patient Type Established Medical Decision Making Moderate Complexity Diagnoses Lung cancer C34.90 Laterality: unspecified laterality Lung location: unspecified part of lung Pneumonia J18.9 Laterality: left Lung location: lower lobe of lung Pneumonia type: due to unspecified organism Respiratory failure, acute and chronic J96.21 Respiratory failure complication: hypoxia Acute on chronic renal insufficiency N28.9; N18.9 Anemia D64.9 Anemia type: unspecified type Counseling regarding goals of care Z71.89 (1) Lung cancer Laterality: unspecified laterality Lung location: unspecified part of lung Qualified Code(s): C34.90 - Malignant neoplasm of unspecified part of unspecified bronchus or lung (2) Pneumonia Laterality: left Lung location: lower lobe of lung Pneumonia type: due to unspecified organism Qualified Code(s): J18.9 - Pneumonia, unspecified organism (3) Respiratory failure, acute and chronic Respiratory failure complication: hypoxia Qualified Code(s): J96.21 - Acute and chronic respiratory failure with hypoxia (5) Anemia Anemia type: unspecified type Qualified Code(s): D64.9 - Anemia, unspecified
[2024-02-19 04:58] LABS: Hematocrit (blood only) 25.9 % (37.0-47.0); Hemoglobin 8.9 g/dl (12.0-16.0); Mean Corpuscular Hemoglobin 28.6 pg (25.0-34.0); Mean Corpuscular Hgb Conc 34.4 g/dL (32.0-36.0); Mean Corpuscular Volume 83.3 fL (80.0-100.0); Mean Platelet Volume 10.2 fL (9.4-12.4); Platelet Count 270 K/uL (130-400); RDW Coefficient of Variation 18.5 % (11.5-14.5); RDW Standard Deviation 55.7 fL (36.4-46.3); Red Blood Count 3.11 M/uL (4.20-5.40)
[2024-02-19 05:12] LABS: BUN Creatinine Ratio 30.2 (10-20); Calcium 8.4 mg/dl (8.6-10.3); Creatinine Clr Calc Pharmacy 12.4 ml/min; Magnesium 2.3 mg/dl (1.7-2.4); Potassium 3.7 mmol/L (3.5-5.1)
[2024-02-19 05:35] LABS: Basophils # (auto) 0.02 K/uL (0.00-0.20); Basophils % (auto) 0.1 %; Echinocytes 1+; Immature Granulocytes # (auto) 0.16 K/uL (0.01-0.20); Lymphocytes # (auto) 0.84 K/uL (1.20-3.40); Lymphocytes % (auto) 5.3 %; Monocytes # (auto) 0.28 K/uL (0.11-0.59); Monocytes % (auto) 1.8 %; Neutrophils % (auto) 91.8 %; Polychromasia 1+
--- NOTE | 2024-02-19 07:38 | Critical Care Progress Note ---
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 She was extubated 02/18/2024 24-hour events: Patient was extubated. Multiple discussions held with family. Not pursuing additional respiratory adjuvants including BiPAP or repeat intubation if the patient should fail. She been hemodynamically stable and oxygen has been weaned. Recommendations: Neuro -no current issues. Continue venlafaxine. Holding trazodone. Cardiac - Empirically being treated for PE. CTA on presentation showed no pulmonary embolism. Off vasopressors currently. Echo showed significant RV strain and pulmonary hypertension of unclear etiology. Would continue systemic anticoagulation until the patient is immobile. At that point can have a discussion regarding risks and benefits of long-term therapy. Respiratory -chest x-ray appears better with potential temporal relation to steroids for ICI toxicity. Given the improvement, would continue Solu-Medrol for an additional 24 hours at which point in time she can be transition to prednisone 40 mg a day with plans to taper slowly over the next 8 to 12 weeks. She will need outpatient follow-up with oncology and would avoid immunotherapy in the future. Wean oxygen as tolerated. Continue incentive spirometry. GI - Questionable GI bleed. Hemoglobin stable currently. Hold additional transfusion was hemoglobin less than 7. Appreciate GI recommendations. Advance diet as tolerated RENAL/LYTES -kidney function stabilizing. Continue supportive care. Lasix per nephrology. -discontinue Owusu catheter ENDO - Glycemic control per protocol HEME - Patient has a history of 2 lung cancers. Her initial lung cancer was diagnosed in 2021, non-small cell lung cancer, favor adeno. She was treated with Tagrisso, however dose was reduced due to potential toxicity. She in November of this year was found to have a new mass which was biopsy-proven squamous cell carcinoma. She was treated with CarboTaxol and pembrolizumab. Is unclear when she received her last dose. The oncology notes indicate at least a stage IIIb. She is not felt to be a candidate for radiation therapy. The patient's current clinical condition would likely preclude additional chemotherapy given possibility of ICI toxicity and her kidney disease. Follow counts at this point in time ID - Patient is completed a full course of antibiotics. Cultures have remained negative. CODE STATUS -DNR/DNI --Prophylaxis VTE: Heparin drip GI: Pantoprazole Lines: Right-sided Port-A-Cath, peripheral Patient is improving and stable to transfer out of the ICU. Critical care services will sign off. Feel free to contact us with questions or concerns Admission and Anticipated Discharge Date Admission Date: February 10, 2024 Subjective Patient seen and examined. EMR reviewed. Discussed with bedside critical care nurse and on multidisciplinary rounds. The patient is doing well clinically. She reports no respiratory difficulties. She is not coughing wheezing or expectorating phlegm. She denies any chest pain. No abdominal pain. Review of Systems Review of Systems: All systems reviewed & are unremarkable except as noted in Subjective Physical Exam Constitutional: WD/WN, vitals as above Neck: trachea midline, no thyromegaly Respiratory: no respiratory distress, no labored breathing, no cough and not tachypneic Auscultation: + diminished lung sounds and + rhonchi; no crackles and no wheezes Cardiovascular: RRR, no murmur, no edema Gastrointestinal (Abdomen): normal bowel sounds, soft, nontender, no hepatosplenomegaly Musculoskeletal: Extremities: extremities normal to inspection Skin: no rashes, warm and dry Neurologic: Nonfocal exam Lymphatic: no cervical lymphadenopathy Results & Data Results & Data Vital Signs (Past 12 Hours) Vital Signs Pulse Pulse Resp BP Pulse Ox O2 Del Method O2 Flow Rate 02/19/24 07:07 99 H 18 90 Nasal Cannula 1 02/19/24 01:00 95 H 16 90 02/19/24 01:00 152/74 H 02/19/24 00:00 92 H 02/19/24 00:00 88 19 92 02/19/24 00:00 154/75 H 02/19/24 00:00 154/75 H 02/18/24 23:03 95 H 18 93 02/18/24 23:00 157/73 H 02/18/24 22:54 89 15 92 02/18/24 22:03 91 H 17 91 02/18/24 22:00 168/75 H 02/18/24 22:00 168/75 H 02/18/24 22:00 Nasal Cannula 2 02/18/24 21:36 90 18 90 02/18/24 21:00 168/73 H 02/18/24 21:00 168/73 H 02/18/24 21:00 93 H 15 91 02/18/24 20:00 99 H 02/18/24 20:00 94 H 15 93 02/18/24 20:00 165/75 H 02/18/24 20:00 165/75 H Diagnostic Findings Chest x-ray performed today was independently reviewed. It demonstrates improvement in the bilateral parenchymal airspace opacities. Critical Care Results & Data Vital Signs (Past 12 Hours) Vital Signs Pulse Pulse Resp BP Pulse Ox O2 Del Method O2 Flow Rate 02/19/24 07:07 99 H 18 90 Nasal Cannula 1 02/19/24 01:00 95 H 16 90 02/19/24 01:00 152/74 H 02/19/24 00:00 92 H 02/19/24 00:00 88 19 92 02/19/24 00:00 154/75 H 02/19/24 00:00 154/75 H 02/18/24 23:03 95 H 18 93 02/18/24 23:00 157/73 H 02/18/24 22:54 89 15 92 02/18/24 22:03 91 H 17 91 02/18/24 22:00 168/75 H 02/18/24 22:00 168/75 H 02/18/24 22:00 Nasal Cannula 2 02/18/24 21:36 90 18 90 02/18/24 21:00 168/73 H 02/18/24 21:00 168/73 H 02/18/24 21:00 93 H 15 91 02/18/24 20:00 99 H 02/18/24 20:00 94 H 15 93 02/18/24 20:00 165/75 H 02/18/24 20:00 165/75 H Lab & Micro Results (Past 24 Hours) RBC 3.11 M/uL (4.20-5.40) L 02/19/24 WBC 15.80 K/ul (4.8-10.8) H 02/19/24 Hgb 8.9 g/dl (12.0-16.0) L 02/19/24 Hct 25.9 % (37.0-47.0) L 02/19/24 MCV 83.3 fL (80.0-100.0) 02/19/24 MCH 28.6 pg (25.0-34.0) 02/19/24 MCHC 34.4 g/dL (32.0-36.0) 02/19/24 RDW Standard Deviation 55.7 fL (36.4-46.3) H 02/19/24 RDW Coefficient of Variation 18.5 % (11.5-14.5) H 02/19/24 Plt Count 270 K/uL (130-400) 02/19/24 MPV 10.2 fL (9.4-12.4) 02/19/24 Neutrophils (%) (Auto) 91.8 % 02/19/24 Lymphocytes (%) (Auto) 5.3 % 02/19/24 Monocytes # (Auto) 0.28 K/uL (0.11-0.59) 02/19/24 Eosinophils # (Auto) 0.00 K/uL (0.00-0.50) 02/19/24 Immature Granulocyte % (Auto) 1.0 % 02/19/24 Neutrophils # (Auto) 14.50 K/uL (1.40-6.50) H 02/19/24 Lymphocytes # (Auto) 0.84 K/uL (1.20-3.40) L 02/19/24 Monocytes # (Auto) 0.28 K/uL (0.11-0.59) 02/19/24 Eosinophils # (Auto) 0.00 K/uL (0.00-0.50) 02/19/24 Basophils # (Auto) 0.02 K/uL (0.00-0.20) 02/19/24 Immature Granulocyte # (Auto) 0.16 K/uL (0.01-0.20) 4 Polychromasia 1+ 02/19/24 Echinocytes 1+ 02/19/24 Na 136 mmol/L (136-145) 02/19/24 K 3.7 mmol/L (3.5-5.1) 02/19/24 Cl 99 mmol/L (98-107) 02/19/24 CO2 17 mmol/L (21-32) L 02/19/24 Anion Gap 20 (3-11) H 02/19/24 BUN 112 mg/dl (6-23) H 02/19/24 Creatinine 3.71 mg/dl (0.6-1.2) H 02/19/24 BUN/Creatinine Ratio 30.2 (10-20) H 02/19/24 Glu 132 mg/dl (70-99(Fasting)) H 02/19/24 Ca 8.4 mg/dl (8.6-10.3) L 02/19/24 Mg 2.3 mg/dl (1.7-2.4) 02/19/24 04:35 Calcium Level 8.4 mg/dl (8.6-10.3) L 02/19/24 04:35 Diagnostic Findings (Past 24 Hours) Chest X-Ray 02/18/24 07:00 EXAM: XR chest 1V portable CLINICAL HISTORY: RESP FAILURE JTF/TGB TECHNIQUE: An X-ray image of the chest is obtained in frontal projection. COMPARISON: 02/16/2024. FINDINGS: ETT with its tip lying 2.7 cm above the daina (low position, unchanged since prior study). Right CVL with its tip in SVC. NGT noted in place. Pulmonary Parenchyma: A slight regressive course of the bilateral lung patchy air space opacities. Bilateral CP angles are obscured suggesting pleural effusion (unchanged). Heart and Mediastinum: Heart size and shape are normal. No mediastinal widening or masses. No hilar or mediastinal lymphadenopathy. Aortic atheromatous calcification. Bony Thorax: Bilateral shoulder replacement prosthesis. Mild spondylotic changes in the thoracic spine. Soft Tissues: Soft tissues overlying the chest wall are unremarkable IMPRESSION: 1. A slight regressive course of the bilateral lung patchy air space opacities. 2. ETT with its tip lying 2.7 cm above the daina (low position, unchanged since prior study), needs re-adjustment. Please assess clinically. 3. No other significant interval changes. Electronically signed by Ragini Solis 02-18-2024 07:48 AM I & O Totals 24 Hours 02/18/24 02/19/24 02/20/24 06:59 06:59 06:59 Intake Total 2798.683 / 2879.383 583.934 / 583.934 Output Total 2029 2950 / 2950 Balance 768.683 / 849.383 -2366.066 / -2366.066 - -1 Cumulative 02/10/24 15:59 thru 02/19/24 07:10 Intake Total 85171.474 Output Total 07984 Balance 5063.474 RT Ventilator Mngmt (Last Documented) Ventilator Ordered Settings Ventilator Support Mode CPAP 02/18/24 09:20 Respiratory Rate 18 02/19/24 07:07 Ventilator Tidal Volume 430 02/18/24 07:05 Setting Minute Ventilation 7.7 02/18/24 09:20 Ventilator Positive Pressure 7 02/18/24 09:20 Support Setting Positive End Expiratory 7 02/18/24 09:20 Pressure Fraction of Inspired Oxygen 30 02/18/24 09:20 Peak Inspiratory Flow 43 02/14/24 07:30 Machine Comment placed on wean at this time 02/18/24 09:20 Ventilator - PT Measurements Respiratory Rate 18 Exhaled Tidal Volume 457 Minute Ventilation 7.7 Peak Inspiratory Airway 14 Pressure Plateau Pressure 13.8 Respiratory Cycle Inspiratory: 1:2.7 Expiratory Ratio Inspiratory Phase Time 0.9 End-Tidal CO2 27 Static Lung Compliance 62.79 Dynamic Lung Compliance 65.29 Normal Static Lung Compliance 49.00 Patient Measurements Comment pt extubated to 2L NC, sat 92%. no stridor/no distress post extubation Coding Level of Care Code 54189 SUB INP/OBS CARE 3/50MIN Diagnoses Septic shock A41.9; R65.21 Hyponatremia E87.1 Peripheral vascular disease I73.9 Diabetes mellitus, type 2 E11.9 HTN (hypertension) I10 COPD (chronic obstructive pulmonary disease) J44.9 Lung cancer C34.90 Anxiety F41.9 Respiratory failure, acute and chronic J96.21 Respiratory failure complication: hypoxia [place] (acute kidney injury) N17.9 (9) Respiratory failure, acute and chronic Respiratory failure complication: hypoxia Qualified Code(s): J96.21 - Acute and chronic respiratory failure with hypoxia
--- NOTE | 2024-02-19 08:23 | XRay Report ---
EXAM: XR chest 1V portable CLINICAL HISTORY: resp failure tgb/jtf TECHNIQUE: X-ray image of the chest was obtained in 1 view: AP projection. COMPARISON: Prior X-ray dated 02/18/2024. FINDINGS: Pulmonary Parenchyma: Mild interval improvement in air space shadowing in right lower zone. Unchanged rest of patchy opacities in bilateral lungs. Stable bilateral pelural effusion. Heart and Mediastinum: Heart size and shape are normal. Aortic knuckle calcification. No mediastinal widening or masses. No hilar or mediastinal lymphadenopathy. Bony Thorax: Bilateral shoulder prosthesis. Spondylotic changes in thoracic spine. Bony thorax appears intact without fractures or deformities. Soft Tissues: Soft tissues overlying the chest wall are unremarkable. Right CVL with tip in SVC. Interval removal of ETT and NG tube. IMPRESSION: 1. Mild interval improvement in air space shadowing in right lower zone. 2. Unchanged rest of patchy opacities in bilateral lungs. 3. Stable bilateral pelural effusion. 4. Right CVL with tip in SVC. 5. Interval removal of ETT and NG tube. Electronically signed by Ragini Solis 02-19-2024 08:21 AM
--- NOTE | 2024-02-19 09:29 | Nephrology Progress Note ---
Date of Service February 19, 2024 Assessment & Plan Admission and Anticipated Discharge Date Admission Date: February 10, 2024 Subjective Assessment & Plan (1) Acute kidney injury (nontraumatic): Plan: No longer oliguric stage 3 (d/t UOP) [place] on CKD 4 (baseline creatinine 1.6-2.0 in 2023 though more 1.6-1.7 w/ stable weight December). Creat continues to rise but very slowly. s/p IV contrast for CTA chest 02/09. reviewed OP records. no prior bicarb drops or e/o metabolic acidosis [employer]. she has improving AG now and no acidemia; doubt role for Farxiga related ketoacidosis. presume ischemic ATN given hypotension, anemia and IV contrast. Slow decline in renal functions continue, Cr 3.7 now and BUN also went up. Big Increase in urine output with iv lasix. However BUn and creat rising. So will hold further lasix for today. revisit this after assessment and labs tomorrow. Replace K to keep levels> 4.0. daily CBC and renal panel. Doing dialysis in patient with what appears like metastatic terminal Cancer is not a good idea. Given [place] unlikely she can have further chemo at this time. she remains critically ill however. Family discussion and Possible palliative med Consult done. reviewed Consult note. patient had previously told no dialysis. Spoke with her in detail and he is an agreement about no dialysis. Also no ventillator and no Code from now. Will confirm this once extubated. (2) Hyponatremia: Plan: improving and now this AM 135. Likely will go higher withIV Bumex. presented w/ sNa 122 and dropped to 118 by 0100 02/10. 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 -sodium 135 today -monitor daily (3) CKD (chronic kidney disease) stage 4, GFR 15-29 ml/min: Plan: CKD 4 though past month w/ some improvement in creatinine (more 1.6-1.7) and wt maintained. follows w/ Dr Ellis (4) Hypomagnesemia: Plan: mild; on [place] based therapy monitor daily. mag normal today (5) Respiratory failure, acute and chronic: Plan: intubated.and now extubated (6) Lung cancer: Plan: on VEGF/TK inhibitor AND taxol / carboplatin/ ketruda and on intermittent decadron (last tx 01/22) (7) Pneumonia: Plan: severe; multilobar; cavitary lesions on imaging RLL, JAKE Continue Zosyn/doxy Above plan and care co-ordination discussed with ICU and Hospitalist. Discussed with family in detail regarding Dialysis and level of care. time spent 55 mins Subjective BP is fine now. NO pressors. urine 2950 ml yesterday with iv Lasix Physical Exam Constitutional: Intubated on vent. Critically ill Eyes: EOM intact bilaterally ENMT: Mouth: + dry oral mucous membranes Neck: no nuchal rigidity Respiratory: Intubated on vent. + diminished lung sounds Cardiovascular: Rate/Rhythm: regular rate and regular rhythm Extremities: + edema (Trace peripheral) Gastrointestinal (Abdomen): abdomen soft nontender Musculoskeletal: Extremities: strength 5/5 throughout Skin: no rashes, warm and dry Results & Data Vital Signs (Past 12 Hours) Vital Signs Pulse Pulse Resp BP Pulse Ox O2 Del Method O2 Flow Rate 02/19/24 07:07 99 H 18 90 Nasal Cannula 1 02/19/24 01:00 95 H 16 90 02/19/24 01:00 152/74 H 02/19/24 00:00 92 H 02/19/24 00:00 88 19 92 02/19/24 00:00 154/75 H 02/19/24 00:00 154/75 H 02/18/24 23:03 95 H 18 93 02/18/24 23:00 157/73 H 02/18/24 22:54 89 15 92 02/18/24 22:03 91 H 17 91 02/18/24 22:00 168/75 H 02/18/24 22:00 168/75 H 02/18/24 22:00 Nasal Cannula 2 02/18/24 21:36 90 18 90
[2024-02-19] MEDS ORDERED: POTASSIUM CHLORIDE / WTR 10 MEQ/100 ML PLCT IV SCH (12:30)
--- NOTE | 2024-02-19 13:07 | Cardiology Consultation ---
Date of Consultation February 19, 2024 Assessment & Plan (1) New onset atrial fibrillation: (2) Septic shock: (3) Pneumonia: (4) Anemia: (5) Acute on chronic renal insufficiency: (6) DVT (deep venous thrombosis): Plan Case has been discussed with Dr. Rodriguez. Further recommendations regarding plan of care as per his assessment. I spent a total of 40 minutes on the date of service in preparation, delivery, documentation of the care provided to the patient excluding any time spent in the performance of separately billed services. KARIN Nava [facility] Cardiology [facility] Supervising Physician Co-Signing Physician Notes Attending Staff: 73 yo woman presented with generalized "not feeling well" + Fall at home Hypotensive on presentation - Levophed Hypoxic on presentation - BiPAP - intubation - failed extubation - re-intubated Hgb 6.0 - 2 units of PRBCs Troponin 2049 CXR - bilateral opacities, bilateral effusions KY on CKD - creat 3.71 Family declined HD Patient transition to DNR/DNI post her second intubation Cardiology Consulted for: new-onset afib with RVR EK02-19-2024 - afib with RVR - ventricular rate 139; lateral ST segment depressions with RVR ECHOcardiogram: 02-11-2024 * LVEF 60-65% * RV normal size, mild RV dysfunction * Mild TR * Severe PH - PASP 60 * No pericardial effusion Med Hx: Moderate MR ASA CKD DM Chronic Anemia Lung CA- Rx with Chemotherapy Hyponatremia/SIADH Smoker Plans: * Continue Heparin * Started on Lopressor 12.5 mg po Q 6 hrs * Consider Lopressor 5 mg IV x 1; may be repeated x several doses to secure HR <100 at rest * Consider adjusting PO Lopressor dose after IV Lopressor administered - suspect that patient may need Lopressor 25 mg po QID * K+ goal 4.5-5 * Kdur 40 meq po x 1 * Recheck BMP in PM on 02/19/2024 * Mag goal >2.0 (currently 2.3) - WNL * TSH - 3.8 (02-10-2024) - WNL * Troponin elevation likely secondary to demand ischemia in the setting of profound anemia, respiratory failure and KY/CKD * Although coronary evaluation is typically warranted in these cases, give patient's extensive co-morbidities (including renal failure) and appropriately conservative stance on interventions, may defer any decision for coronary evaluation to a point in the future. * Systolic murmur c/w MR * 61 min spent addressing challenges, educating and advancing daily plan of care. * Please call back with additional questions Wan Rodriguez History of Present Illness Reason for Consultation: A-fib Requesting Physician: Ismael salcedo Attending Physician: Jamarcus Valdes MD History of Present Illness Patient is a 73 year old female with complex PMHx noted below that presented to the ED on 02/10/24 with a 3 week history of "not feeling well". Per spouse, patient had fallen at home 3 days ago after complaints of feeling dizzy, she had a moist productive cough with associated shortness of breath, and also complained of abdominal discomfort, poor urine output and " sleeping a lot". SBP in the 70's on arrival. Spo2 low 80's on room air in the ER. Received IV vanco, zosyn, fluid bolus and 2 units of PRBC's Bipap was started and subsequently required intubation. levophed were also started. Patient was extubated on 02/18/24 WBC count today 15.80 H/H 8.9/25.9 (HgB on admission was 6.9) Cr 3.71 (baseline typically 1.6). Patient and family have expressed no dialysis, not a good candidate given other comorbidities including cancer state. BNP 1106 on admission Trop on admission 4722--Trended down to 0, stopped trending CK 223/342 Chest xray today: IMPRESSION: 1. Mild interval improvement in air space shadowing in right lower zone. 2. Unchanged rest of patchy opacities in bilateral lungs. 3. Stable bilateral pleural effusion. 4. Right CVL with tip in SVC. 5. Interval removal of ETT and NG tube. 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 COPD DM CRI Chronic hyponatremia s/t SIADH Chronic anemia with baseline HgB 9.0 GERD Cervical intraepithelial neoplasia s/p surgical intervention Migraines anxiety Tobacco abuse EKG on admission NSR, Septal infarct age undetermined EKG today demonstrates A-fib with RVR, Rate 139bpm Allergies Allergy/AdvReac Type Severity Reaction Status Date / Time NSAIDS (Non-Steroidal AdvReac Intermediate Hives Verified 12/16/23 07:27 Anti-Inflamma Home Medications Medication Instructions Recorded Confirmed Type amlodipine 5 mg tablet 2.5 mg PO QAM 12/04/23 02/10/24 History budesonide 160 mcg-glycopyr 9 2 inh inhalation QPM 12/04/23 02/10/24 History mcg-formot 4.8 mcg/actuation HFA inhaler (Breztri Aerosphere) bupropion HCl 150 mg 24 hr tablet, 150 mg PO QAM 12/04/23 02/10/24 History extended release dapagliflozin propanediol 5 mg 5 mg PO QAM 12/04/23 02/10/24 History tablet (Farxiga) dexamethasone 4 mg tablet See Rx Instructions .Route .COMPLEX 12/04/23 02/10/24 History lansoprazole 15 mg capsule,delayed 15 mg PO QAM 12/04/23 02/10/24 History release losartan 100 mg tablet 100 mg PO QAM 12/04/23 02/10/24 History osimertinib 40 mg tablet (Tagrisso) 40 mg PO QAM 12/04/23 02/10/24 History rosuvastatin 10 mg tablet 10 mg PO QAM 12/04/23 02/10/24 History venlafaxine 150 mg 150 mg PO QAM 12/04/23 02/10/24 History capsule,extended release 24 hr (Effexor XR) acetaminophen 500 mg tablet 500 mg PO Q6H PRN Pain 02/10/24 02/10/24 History albuterol sulfate 2.5 mg/3 mL 2.5 mg inhalation Q4H PRN Wheezing 02/10/24 02/10/24 History (0.083 %) solution for nebulization albuterol sulfate 90 mcg/actuation 2 puff inhalation 6XD PRN Wheezing 02/10/24 02/10/24 History aerosol inhaler aspirin 81 mg tablet,delayed 81 mg PO DAILY 02/10/24 02/10/24 History release lidocaine-prilocaine 2.5 %-2.5 % 1 applic topical UD 02/10/24 02/10/24 History topical cream melatonin 5 mg tablet 5 mg PO HS 02/10/24 02/10/24 History omeprazole 20 mg capsule,delayed 20 mg PO QAM 02/10/24 02/10/24 History release ondansetron HCl 8 mg tablet 8 mg PO Q8H PRN Nausea And Vomiting 02/10/24 02/10/24 History prochlorperazine maleate 10 mg 10 mg PO Q6H PRN Nausea 02/10/24 02/10/24 History tablet propranolol 60 mg capsule,24 60 mg PO QAM 02/10/24 02/10/24 History hr,extended release trazodone 100 mg tablet 100 mg PO QAM 02/10/24 02/10/24 History Patient History Medical History Hyponatremia AAA (abdominal aortic aneurysm) per 09/10/23 imagin.7mm CKD (chronic kidney disease) stage 4, GFR 15-29 ml/min Carotid artery disease s/p R CEA Peripheral vascular disease Diverticular disease No hospitalizations - unsure when dx Acid reflux Diabetes mellitus, type 2 Anxiety Migraine HTN (hypertension) Irregular heart beat Follows Dr Hannah Springer; 'frequent PVCs' per chart review COPD (chronic obstructive pulmonary disease) 55 pack year smoking hx Lung cancer Per Oncology note, "Right lung mass, FNA c/w non small cell lung cancer favor adenocarcinoma. 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" Surgical History H/O vascular surgery L leg stent x 2 Hx of hysterectomy History of lung biopsy History of right shoulder replacement History of carotid endarterectomy R CEA History of bilateral hip replacements History of total left knee replacement Hx of colonoscopy Hx of cholecystectomy Hx of cataract surgery Bilateral Social History Smoking Status: Never smoker Tobacco Type: Cigarettes Cigarettes Per Day: 1/2 pack; Second Hand Exposure: No; Do You Dip or Chew Tobacco: No; Hx Alcohol Use: No Hx Substance Use: No Preferred Language: [place] Communication Ability: Impaired Endodontist Required: No Beliefs That Will Affect Care: Cultural Current Living Situation: Spouse Feels Safe at Home: Yes Assistive Devices: Bedside Commode, Lift Chair, Walker and Wheelchair Review of Systems Review of Systems: All systems reviewed & are unremarkable except as noted in HPI & below Physical Exam Physical Exam: Allopecia Port in place No elevation in JVP S1S2 2/6 systolic murmur CTA B on anterior exam No c/c/e Warm and perfusing Results & Data Vital Signs (Past 12 Hours) Vital Signs Pulse Pulse Resp BP Pulse Ox O2 Del Method O2 Flow Rate 02/19/24 12:19 141 H 02/19/24 11:54 141 H 02/19/24 11:09 146 H 154/86 H 02/19/24 08:00 Nasal Cannula 2 02/19/24 07:07 99 H 18 90 Nasal Cannula 1 Laboratory Results CBC 02/19/24 Range/Units 04:35 WBC 15.80 H (4.8-10.8) K/ul RBC 3.11 L (4.20-5.40) M/uL Hgb 8.9 L (12.0-16.0) g/dl Hct 25.9 L (37.0-47.0) % Plt Count 270 (130-400) K/uL Neut # (Auto) 14.50 H (1.40-6.50) K/uL Lymph # (Auto) 0.84 L (1.20-3.40) K/uL Hughes # (Auto) 0.28 (0.11-0.59) K/uL Eos # (Auto) 0.00 (0.00-0.50) K/uL Baso # (Auto) 0.02 (0.00-0.20) K/uL Comprehensive Metabolic Panel 02/19/24 Range/Units 04:35 Sodium 136 (136-145) mmol/L Potassium 3.7 (3.5-5.1) mmol/L Chloride 99 (98-107) mmol/L Carbon Dioxide 17 L (21-32) mmol/L BUN 112 H (6-23) mg/dl Creatinine 3.71 H D (0.6-1.2) mg/dl Glucose 132 H (70-99(Fasting)) mg/dl Calcium 8.4 L (8.6-10.3) mg/dl Intake and Output 02/18/24 02/19/24 02/19/24 22:59 06:59 14:59 Intake Total 0 / 583.934 356.867 / 583.934 338.976 / 338.976 Output Total 1450 / 2950 700 / 2950 726 / 726 Balance -1450 / -2366.066 -343.133 / -2366.066 -387.024 / -387.024 Intake: IV 0 / 583.934 356.867 / 583.934 338.976 / 338.976 Heparin Sodium/Dextrose 25,000 356.867 / 368.900 153.583 / 153.583 units In 500 ml @ 950 UNITS/HR 19 mls/hr IV .Q24H [facility] Rx#: [id number] Norepinephrine/D5w 4 mg In 250 185.393 / 185.393 ml @ 0 MCG/KG/MIN IV .Q0M [facility] Rx#:[id number] fentaNYL citrate 2,500 mcg In 0 / 113.334 250 ml @ 25 MCG/HR 2.5 mls/hr IV .Q96H [facility] Rx#:[id number] Oral 0 / 0 Output: Urine Amount (Catheter) 1450 / 2950 700 / 2950 725 / 725 [place]/Indwelling 1450 / 2950 700 / 2950 725 / 725 # Bowel Movements Other: Other Intake Source NPO # Bowel Movement Diapers 2 Weight 66.5 kg 65 kg Weight [facility] Patient Weight 02/20/24 06:59 Weight 65 kg Diagnostic Findings Echocardiogram 02/11/2024: LVEF 60-65% RV normal size LV systolic function normal Mild RV hypokinesis mild TR Severe Pulm HTN. PASP 60mmHg MR - mild (3) Pneumonia Laterality: left Lung location: lower lobe of lung Pneumonia type: due to unspecified organism Qualified Code(s): J18.9 - Pneumonia, unspecified organism (4) Anemia Anemia type: unspecified type Qualified Code(s): D64.9 - Anemia, unspecified
[2024-02-19] MEDS: POTASSIUM CHLORIDE CRTAB 20 MEQ TABCR PO ONE (13:20)
[2024-02-19] MEDS: METOPROLOL TARTRATE 25 MG TAB PO SCH (13:21)
--- NOTE | 2024-02-19 13:47 | Palliative Care Progress Note ---
Date of Service February 19, 2024 Assessment & Plan (1) Lung cancer: (2) Pneumonia: (3) Respiratory failure, acute and chronic: (4) Acute on chronic renal insufficiency: (5) Anemia: (6) Counseling regarding goals of care: Plan 73-year-old female with past medical history significant for COPD, lung cancer x 2 (initially adenocarcinoma status post Tagrisso, now with squamous cell carcinoma status post CarboTaxol with unknown immune therapy), anxiety and depression, peripheral vascular disease, DM type II, HLD, HTN who is admitted to the ICU with septic shock requiring vasopressor support and recurrent respiratory failure requiring intubation x 2 this hospitalization. Extubated today currently on IA. 1) Lung cancer: per primary/[facility] [place] Lopez; pt's spouse worried that previous treatments may have made pt sicker and unsure if they would pursue further [facility] treatments given her poor prognosis (2) Pneumonia: continue medical management per primary Laterality: left Lung location: lower lobe of lung Pneumonia type: due to unspecified organism Qualified Code(s): J18.9 - Pneumonia, unspecified organism (3) Respiratory failure, acute and chronic: Has been extubated to IA, she appears in NAD today, but per nursing staff she does experience some moderate hypoxia when sleeping. Pt is now DNR/DNI per pt wishes and spouse request. (4) Acute on chronic renal insufficiency: management per nephrology. (5) Anemia: management per primary Anemia type: unspecified type Qualified Code(s): D64.9 - Anemia, unspecified Present on Admission?: Yes (6) Counseling regarding goals of care: No family at bedside today. Spoke briefly with pt, she was oriented to person and place but Continues to lacks decisional capacity based on inability to convey a clear understanding of her PMHx or hospital course and lack understanding of extent of her cancer, prognosis or treatment options. She does require a proxy for medical decisions. In absence of documented wishes (LW/AD), per [place] [employer], legal proxy for medical decisions would be the pt's current spouse (Ryne Bustillos [phone]) and any adult children from previous relationship WITH EQUAL DECISIONAL POWER. Pt has one adult daughter from previous marriage. Patient did convey that she would not wish to be intubated/mechanically ventilated nor resuscitated in event of pulmonary or cardiovascular decompensation. This is consistent with her legal MDM proxies expressed wishes. Attempted to contact pt's spouse Ryne by phone, no answer, general VM with contact information left. Per previous conversations with pt's spouse and dtr, if pt decompensates post extubation they request transition to comfort directed care. Palliative care will continue follow to assist with ongoing goal planning. Admission and Anticipated Discharge Date Admission Date: February 10, 2024 Subjective pt seen and evaluated in ICU, no family present. Pt is A&Ox3, NAD on nc. She denies any discomfort today but does c/o difficulty sleeping at night. Review of Systems Constitutional: + fatigue and + weakness Eyes: + problem reported Ear, Nose, Mouth, Throat: + dry mouth, + sore throat and + pain wi th swallowing Respiratory: + cough Cardiovascular: + edema; no chest pain Gastrointestinal: + pain with swallowing; no abdominal susanne n, no heartburn and no nausea Musculoskeletal: + muscle weakness Physical Exam Physical Exam: Constitutional: + ill appearing, + altered mental status and + frail appearing; no acute distress Eyes: PERRL Respiratory: Auscultation: + diminished lung sounds and + crackles tachypneic on nc Cardiovascular: Rate/Rhythm: + tachycardic and + irregularly irregular Heart Sounds: normal S1 and normal S2 Extremities: + edema Gastrointestinal (Abdomen): normal bowel sounds, soft, nontender, no hepatosplenomegaly Musculoskeletal: peripheral edema and generalized weakness Neurologic: PERRL, EOMI, accommodation nl, no face palsy, no dysarthria general weakness Results & Data Vital Signs (Past 12 Hours) Vital Signs Pulse Pulse Resp BP Pulse Ox O2 Del Method O2 Flow Rate 02/19/24 13:03 135 H 18 87 L 02/19/24 13:00 134/82 02/19/24 12:54 140 H 25 H 89 L 02/19/24 12:19 141 H 02/19/24 12:00 136 H 25 H 88 L 02/19/24 12:00 133/89 02/19/24 11:54 141 H 02/19/24 11:09 146 H 154/86 H 02/19/24 11:06 154/86 H 02/19/24 11:03 152 H 16 88 L 02/19/24 11:00 136/108 H 02/19/24 11:00 136/108 H 02/19/24 10:57 117 H 19 85 L 02/19/24 10:01 175/81 H 02/19/24 10:00 105 H 22 91 02/19/24 09:03 104 H 19 86 L 02/19/24 09:02 164/89 H 02/19/24 09:02 164/89 H 02/19/24 08:51 103 H 18 89 L 02/19/24 08:03 110 H 20 90 02/19/24 08:00 166/88 H 02/19/24 08:00 Nasal Cannula 2 02/19/24 07:57 113 H 21 91 02/19/24 07:38 149/94 H 02/19/24 07:33 90 15 92 02/19/24 07:09 100 H 23 95 02/19/24 07:07 99 H 18 90 Nasal Cannula 1 02/19/24 06:09 104 H 16 86 L 02/19/24 06:00 156/72 H 02/19/24 05:42 107 H 20 85 L 02/19/24 05:18 107 H 22 91 02/19/24 05:00 160/70 H 02/19/24 04:57 90 15 89 L 02/19/24 04:12 100 H 18 87 L 02/19/24 04:00 170/71 H 02/19/24 03:57 92 H 15 88 L 02/19/24 03:03 102 H 14 87 L 02/19/24 03:00 167/77 H 02/19/24 02:45 94 H 16 89 L 02/19/24 02:33 95 H 16 89 L Laboratory Results Abnormal lab results 02/18/24 02/19/24 02/19/24 Range/Units 17:40 01:27 04:35 WBC 15.80 H (4.8-10.8) K/ul RBC 3.11 L (4.20-5.40) M/uL Hgb 8.9 L (12.0-16.0) g/dl Hct 25.9 L (37.0-47.0) % RDW Std Deviation 55.7 H (36.4-46.3) fL RDW Coeff of Lara 18.5 H (11.5-14.5) % Neut # (Auto) 14.50 H (1.40-6.50) K/uL Lymph # (Auto) 0.84 L (1.20-3.40) K/uL Carbon Dioxide 17 L (21-32) mmol/L Anion Gap 20 H (3-11) BUN 112 H (6-23) mg/dl Creatinine 3.71 H D (0.6-1.2) mg/dl BUN/Creatinine Ratio 30.2 H (10-20) Glucose 132 H (70-99(Fasting)) mg/dl POC Glucose 151 H 160 H (70-99) mg/dl Calcium 8.4 L (8.6-10.3) mg/dl 02/19/24 02/19/24 Range/Units 06:29 11:20 WBC (4.8-10.8) K/ul RBC (4.20-5.40) M/uL Hgb (12.0-16.0) g/dl Hct (37.0-47.0) % RDW Std Deviation (36.4-46.3) fL RDW Coeff of Lara (11.5-14.5) % Neut # (Auto) (1.40-6.50) K/uL Lymph # (Auto) (1.20-3.40) K/uL Carbon Dioxide (21-32) mmol/L Anion Gap (3-11) BUN (6-23) mg/dl Creatinine (0.6-1.2) mg/dl BUN/Creatinine Ratio (10-20) Glucose (70-99(Fasting)) mg/dl POC Glucose 137 H 179 H (70-99) mg/dl Calcium (8.6-10.3) mg/dl Diagnostic Findings Pelvis X-Ray 02/10/24 16:21 EXAM: Radiographs of the Pelvis 1 View INDICATION: Fall. TECHNIQUE: Frontal view of the pelvis. COMPARISON: No relevant prior studies available. FINDINGS: Limitations: None. Bones/joints: Visualized bilateral hip prostheses well-seated. No dislocation or fracture noted in 1 year. Soft tissues: No abnormality noted. No radiopaque foreign body noted. Vasculature: Atherosclerosis of the abdominal aorta noted with a stent projecting to the left of the L4 vertebra possibly in the left renal artery. IMPRESSION: No pelvic fracture noted. ACT 112: Negative or not required by law. Electronically signed by Anny Pelayo 02-10-2024 6:10 PM Ankle X-Ray 02/10/24 17:40 EXAM: Radiographs of the Right Ankle 3 Views INDICATION: Fall. TECHNIQUE: Frontal, lateral and oblique views of the right ankle. COMPARISON: No relevant prior studies available. FINDINGS: Limitations: None. Bones/joints: There is mild spurring along the medial malleolus presumably related to previous trauma. Well-corticated ossicle seen on the lateral view projecting at the talar neck. There is a defined lucency at the proximal tip of the fifth metatarsal tubercle with small adjacent well-corticated ossification. Ankle mortise intact. Soft tissues: Mild periarticular soft tissue swelling. No soft tissue gas collection or radiopaque foreign body. IMPRESSION: Age-indeterminate fracture proximal tip of the fifth metatarsal tubercle. ACT 112: Negative or not required by law. Electronically signed by Anny Pelayo 02-10-2024 6:[address] 02/10/24 17:50 Exam(s): CT C SPINE EXAM: CT Cervical Spine Without Intravenous Contrast CLINICAL HISTORY: Reason for exam: lung CA, fall, hip pain. TECHNIQUE: Axial computed tomography images of the cervical spine without intravenous contrast. CTDI is 19.93 mGy and DLP is 693.39 mGy-cm. Automated exposure control was utilized for the study. A dose lowering technique was utilized adhering to the principles of ALARA. COMPARISON: No relevant prior studies available. FINDINGS: Vertebrae: No fracture or malalignment. Severe degenerative disc disease at C3-4, C4-5, C5-6, and C6-7. No severe spinal canal stenosis. Multilevel foraminal stenosis of variable degrees. Soft tissues: Interstitial thickening and nodularity at the left lung apex. IMPRESSION: 1. No fracture within the cervical spine. 2. Interstitial thickening and nodularity at the left lung apex. Electronically signed by: Felix Russell MD 02/10/24 21:19 PM Chest CTA 02/10/24 17:50 Exam(s): CTA CHEST IV Amt: 117 cc opti 320 EXAM: CT Angiography Chest With Intravenous Contrast CLINICAL HISTORY: Reason for exam: lung CA, Trop 4700, r/o pe. TECHNIQUE: Axial computed tomographic angiography images of the chest with intravenous contrast. CTDI is 34.77 mGy and DLP is 624.41 mGy-cm. Automated exposure control was utilized for the study. A dose lowering technique was utilized adhering to the principles of ALARA. MIP reconstructed images were created and reviewed. COMPARISON: No relevant prior studies available. FINDINGS: Pulmonary arteries: No pulmonary embolism. Aorta: No acute findings. Normal caliber. No dissection. Lungs: Extensive consolidation in the left lower lobe. More nodular appearing lesions in the left upper lobe some of which demonstrate early cavitation. Cavitating lesion in the right lower lobe with wall thickening measuring up to 4.3 cm. Heterogeneous opacity in the right upper lobe with what appears to be a peripheral rim measuring 4.3 cm (series 10 image 88). Linear nodularity in the posterior right upper lobe measuring 3.7 x 1.5 cm. Pleural space: Unremarkable. Heart: Heart size mildly prominent. Severe CAD. Mediastinum: Moderate hiatal hernia. Bones/joints: No acute fracture. Soft tissues: Unremarkable. Lymph nodes: Unremarkable. IMPRESSION: 1. No pulmonary embolism. 2. Extensive consolidation in the left lower lobe. 3. More nodular appearing lesions in the left upper lobe some of which demonstrate early cavitation. 4. Cavitating lesion in the right lower lobe with wall thickening measuring up to 4.3 cm. 5. Heterogeneous opacity in the right upper lobe with what appears to be a peripheral rim measuring 4.3 cm (series 10 image 88). 6. Linear nodularity in the posterior right upper lobe measuring 3.7 x 1. 5 cm. 7. Moderate hiatal hernia. 8. Heart size mildly prominent. Severe CAD. Electronically signed by: Felix Russell MD 02/10/24 19:[address] 02/10/24 17:50 CR Exam(s): CT HEAD Without Contrast EXAM: CT Head Without Intravenous Contrast CLINICAL HISTORY: Reason for exam: lung CA, fall, pain. TECHNIQUE: Axial computed tomography images of the head/brain without intravenous contrast. CTDI is 34.77 mGy and DLP is 624.41 mGy-cm. Automated exposure control was utilized for the study. A dose lowering technique was utilized adhering to the principles of ALARA. COMPARISON: No relevant prior studies available. FINDINGS: Artifacts: Images are degraded by motion artifact. Brain: No hemorrhage, extra-axial fluid collection, mass effect, or edema. Age indeterminate infarct within the right parietal cortex (series 5 image 11). Ventricles: Unremarkable. Bones/joints: Unremarkable. No fracture. Soft tissues: Unremarkable. Sinuses: No acute sinusitis. Mastoid air cells: Unremarkable as visualized. IMPRESSION: 1. No intracranial hemorrhage or traumatic injury identified. 2. 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 Correlate clinically. Consider MRI if there is concern for acute ischemia. Communications: Verify Receipt Electronically signed by: Felix Russell MD 02/10/24 20:58 PM Venous Doppler Study 02/14/24 00:00 RIGHT UPPER EXTREMITY VENOUS DOPPLER ULTRASOUND CLINICAL HISTORY: rule out DVT COMPARISON STUDY: No previous studies for comparison. TECHNIQUE: Sonography of the deep venous system of the right upper extremity was performed. FINDINGS: There is deep venous thrombus within the right internal jugular, subclavian and axillary veins. Thrombus is noted adjacent to the right internal jugular [id number]. There is also superficial thrombus within the right basilic vein. IMPRESSION: 1. Positive study with deep venous thrombus within the right internal jugular, subclavian and axillary veins. Thrombus adjacent to the right internal jugular [id number]. 2. Superficial thrombus within the right basilic vein. ACT 112: Negative or not required by law. Electronically signed by: Abel Roberson M.D. 02/14/2024 1:[address] 02/16/24 08:47 CT OF THE CHEST WITHOUT IV CONTRAST CLINICAL HISTORY: Worsening hypoxia. Lung cancer. COMPARISON STUDY: Chest radiograph performed earlier today. Chest CT February 10, 2024. CT DOSE: 2221.55 mGy.cm TECHNIQUE: Axial images of the chest were obtained without IV contrast. Images were reviewed in the axial, sagittal, and coronal planes. IV contrast was not administered for this examination. Automated exposure control was utilized for the study. A dose lowering technique was utilized adhering to the principles of ALARA. FINDINGS: A right internal jugular [id number] is in place. Tip of endotracheal tube is just above the daina. Tip of nasogastric tube is within the stomach. There is no pneumothorax. Small to moderate right and small left pleural effusions have increased since CT of February 10, 2024. Prominent mediastinal lymph nodes are unchanged. These are suboptimally assessed on unenhanced exam. There is a moderate sized hiatal hernia. Underlying emphysema. Interlobular septal thickening is present. A cavitary right lower lobe lesion measuring 4.3 x 3.5 cm is again noted. This lesion is spiculated with irregular thickened wall. Right upper lobe irregular density measures 4.2 cm. This may also be neoplastic. Multiple cavitary left upper lobe nodules are again noted. These are stable to slightly improved since prior exam. Extensive left upper lobe and left lower lobe consolidation has progressed. Right lung airspace opacities have also increased. The abdomen and pelvis CT will be reported separately. There is body wall edema. IMPRESSION: 1. Satisfactory positioning of the endotracheal and nasogastric tubes. 2. Progression of extensive bilateral airspace opacities, greater within the left lung. The findings suggest pneumonia or aspiration pneumonitis. 3. Redemonstration of several suspicious right lung lesions, including a spiculated cavitary 4.3 x 3.5 cm lesion suggestive of primary lung neoplasm. 4. Stable to slight improvement in multiple irregular left upper lobe nodules, several of which are cavitary. These may be infectious or neoplastic. 5. Persistent interlobular septal thickening. This favors pulmonary edema although lymphangitic tumor could appear similar. 6. Increase in small to moderate right and small left pleural effusions. No pneumothorax. ACT 112: Negative or not required by law. Electronically signed by: Abel Roberson M.D. 02/16/2024 10:12 AM Abdomen/Pelvis CT 02/16/24 09:12 CT OF THE ABDOMEN AND PELVIS WITHOUT CONTRAST CLINICAL HISTORY: R/o Bleed COMPARISON STUDY: CT of the abdomen and pelvis February 10, 2024. TECHNIQUE: Axial images of the abdomen and pelvis were obtained without IV contrast. Images were reviewed in the axial, sagittal, and coronal planes. Automated exposure control was utilized for the study. A dose lowering technique was utilized adhering to the principles of ALARA. FINDINGS: Please note that the chest CT will be reported separately. Bilateral pleural effusions with extensive lower lung airspace opacities are better depicted on that exam. Tip of nasogastric tube is within the body of the stomach. Evaluation of the abdomen and pelvis is suboptimal on this unenhanced examination. No retroperitoneal hematoma is present. There is no hemoperitoneum. Unenhanced images of the liver, spleen, adrenal glands, kidneys and pancreas are unremarkable with the exception of moderate left renal atrophy. There is a 4.3 x 4 cm infrarenal abdominal aortic aneurysm with extensive aortoiliac atherosclerotic plaque. There is no evidence for rupture. Left common iliac artery stent is in place. Images of the pelvis are degraded by streak artifact from bilateral hip arthroplasties. Body wall edema is present. There is no evidence for a bowel obstruction. No bowel wall thickening is identified on unenhanced exam. There is colonic diverticulosis without evidence for acute diverticulitis. Moderate-sized hilar hernia. IMPRESSION: 1. No retroperitoneal hematoma. No hemoperitoneum. 2. No bowel obstruction. 3. 4.4 cm infrarenal abdominal aortic aneurysm. Extensive aortoiliac atherosclerotic plaque. No evidence for rupture. 4. Anasarca. 5. Bilateral pleural effusions and extensive lower lung airspace opacity suggestive of pneumonia or aspiration pneumonitis, better depicted on the chest CT which will be reported separately. ACT 112: Negative or not required by law. Electronically signed by: Abel Roberson M.D. 02/16/2024 10:17 AM Chest X-Ray 02/19/24 07:00 EXAM: XR chest 1V portable CLINICAL HISTORY: resp failure [id number]/[id number] TECHNIQUE: X-ray image of the chest was obtained in 1 view: AP projection. COMPARISON: Prior X-ray dated 02/18/2024. FINDINGS: Pulmonary Parenchyma: Mild interval improvement in air space shadowing in right lower zone. Unchanged rest of patchy opacities in bilateral lungs. Stable bilateral pelural effusion. Heart and Mediastinum: Heart size and shape are normal. Aortic knuckle calcification. No mediastinal widening or masses. No hilar or mediastinal lymphadenopathy. Bony Thorax: Bilateral shoulder prosthesis. Spondylotic changes in thoracic spine. Bony thorax appears intact without fractures or deformities. Soft Tissues: Soft tissues overlying the chest wall are unremarkable. Right CVL with tip in SVC. Interval removal of ETT and NG tube. IMPRESSION: 1. Mild interval improvement in air space shadowing in right lower zone. 2. Unchanged rest of patchy opacities in bilateral lungs. 3. Stable bilateral pelural effusion. 4. Right CVL with tip in SVC. 5. Interval removal of ETT and NG tube. Electronically signed by Ragini Solis 02-19-2024 08:21 AM Medications Administered Current Inpatient Medications Acetaminophen (Acetaminophen 325 Mg Tab) 650 mg PO QID PRN PRN Reason: pain/fever Stop: 03/11/24 21:54 Albuterol (Albut/Ipratrop 3mg/0.5mg Neb 3 Ml Vial) 3 ml NEB Q6R PRN; Protocol PRN Reason: Shortness Of Breath Or Wheezing Stop: 03/17/24 09:36 Budesonide (Budesonide 0.5 Mg/2 Ml Vial (Pulmicort)) 0.5 mg NEB BIDR AVANI Stop: 03/17/24 18:59 Last Admin: 02/19/24 07:07 Dose: 0.5 mg Bupropion HCl (Bupropion Hcl 100 Mg Tablet) 100 mg PO BID AVANI Stop: 03/16/24 13:59 Last Admin: 02/19/24 09:08 Dose: 100 mg Dextrose (Dextrose 50% 50 Ml Syringe) 25 - 50 ml IV UD PRN; Protocol PRN Reason: Hypoglycemia Protocol Stop: 03/11/24 22:53 Formoterol Fumarate (Formoterol 20 Mcg/2 Ml Vial) 20 mcg INH BIDR AVANI Stop: 03/17/24 18:59 Last Admin: 02/19/24 07:07 Dose: 20 mcg Glucagon (Glucagon For Inj 1 Mg Vial) 1 mg SQ UD PRN; Protocol PRN Reason: Hypoglycemia Protocol Stop: 03/11/24 22:53 Glucose (Glucose 40% Gel 15 Gm Tube) 15 - 30 gm PO UD PRN; Protocol PRN Reason: Hypoglycemia Protocol Stop: 03/11/24 22:53 Glucose (Glucose 10 Tab/Tube) 4 - 8 tab PO UD PRN; Protocol PRN Reason: Hypoglycemia Protocol Stop: 03/11/24 22:53 Hydralazine HCl (Hydralazine Hcl 20 Mg/Ml Vial) 5 mg IV Q4H PRN PRN Reason: SBP > 160 sustained Stop: 03/15/24 22:49 Pantoprazole Sodium (Protonix) 40 mg in 10 mls @ 5 mls/min IV BID AVANI Stop: 03/12/24 08:59 Last Admin: 02/19/24 09:08 Dose: 5 mls/min Heparin Sodium/Dextrose (Heparin Sodium/Dextrose) 25,000 units in 500 mls @ 19 mls/hr IV .Q24H AVANI; Protocol Stop: 03/15/24 14:14 Last Titration: 02/19/24 09:53 Dose: 950 units/hr, 19 mls/hr Methylprednisolone 125 mg/ (Syringe) 2 mls @ 0.667 mls/min IV Q6H AVANI Stop: 03/18/24 10:29 Last Admin: 02/19/24 11:28 Dose: 0.667 mls/min Insulin Aspart (Insulin Aspart Per Unit Charge) 0 units SC Q6 AVANI Stop: 03/18/24 00:00 Last Admin: 02/19/24 11:54 Dose: Not Given Metoprolol Tartrate (Metoprolol Tartrate 1 Mg/Ml Vial) 5 mg IV Q4 PRN PRN Reason: HR > 110 sustained Stop: 03/16/24 03:59 Last Admin: 02/19/24 11:09 Dose: 5 mg Metoprolol Tartrate (Metoprolol Tartrate 25 Mg Tab) 12.5 mg PO Q6H AVANI Stop: 03/20/24 12:29 Last Admin: 02/19/24 13:21 Dose: 12.5 mg Miscellaneous (Carbohydrates For Hypoglycemia ) 15 - 30 gm PO UD PRN PRN Reason: Hypoglycemia Protocol Stop: 03/11/24 22:53 Trazodone HCl (Trazodone Hcl 100 Mg Tab) 100 mg PO DAILY AVANI Stop: 03/16/24 14:29 Last Admin: 02/15/24 14:32 Dose: 100 mg Venlafaxine HCl (Venlafaxine Hcl 37.5 Mg Tab) 75 mg PO BID AVANI Stop: 03/17/24 09:59 Last Admin: 02/19/24 09:08 Dose: 75 mg PG Care Time/CCT Total # of Minutes Spent Total Time Spent with Patient: Total time spent is greater than 50% in coordination of care (as documented) at patient's floor/unit and/or counseling patient: Coding Level of Care Code Established Pt None Patient Type Established Medical Decision Making Moderate Complexity Diagnoses Lung cancer C34.90 Laterality: unspecified laterality Lung location: unspecified part of lung Pneumonia J18.9 Laterality: left Lung location: lower lobe of lung Pneumonia type: due to unspecified organism Respiratory failure, acute and chronic J96.21 Respiratory failure complication: hypoxia Acute on chronic renal insufficiency N28.9; N18.9 Anemia D64.9 Anemia type: unspecified type Counseling regarding goals of care Z71.89 (1) Lung cancer Laterality: unspecified laterality Lung location: unspecified part of lung Qualified Code(s): C34.90 - Malignant neoplasm of unspecified part of unspecified bronchus or lung (2) Pneumonia Laterality: left Lung location: lower lobe of lung Pneumonia type: due to unspecified organism Qualified Code(s): J18.9 - Pneumonia, unspecified organism (3) Respiratory failure, acute and chronic Respiratory failure complication: hypoxia Qualified Code(s): J96.21 - Acute and chronic respiratory failure with hypoxia (5) Anemia Anemia type: unspecified type Qualified Code(s): D64.9 - Anemia, unspecified
--- NOTE | 2024-02-19 14:31 | Hospitalist Progress Note ---
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 Patient also noted to have cough with shortness of breath, had been complaining of abdominal discomfort but denied black or bloody stool. Multifocal pneumonia Severe sepsis with shock in an immunocompromised patient Acute Hypoxic respiratory failure Acute Metabolic encephalopathy Possible adrenal insufficiency: given intermittent Decadron Rx during chemotherapy. Random cortisol wnl. Pt on hydrocortisone in ICU. Delirium Patient presenting with cough and shortness of breath, had systolic blood pressure in 70s. --Chest CT:Progression of extensive bilateral airspace opacities, greater within the left lung. The findings suggest pneumonia or aspiration pneumonitis. Redemonstration of several suspicious right lung lesions, including a spiculated cavitary 4.3 x 3.5 cm lesion suggestive of primary lung neoplasm. Stable to slight improvement in multiple irregular left upper lobe nodules, several of which are cavitary. These may be infectious or neoplastic. Persistent interlobular septal thickening. This favors pulmonary edema although lymphangitic tumor could appear similar. Increase in small to moderate right and small left pleural effusions. No pneumothorax. -- BioFire negative --Blood cultures negative Patient was admitted to ICU for vasopressor support. Patient was intubated on 02/10 due to progressive hypoxia/agitation Patient underwent bronchoscopy after intubation; thick grayish-white secretions appreciated in the trachea, daina and predominantly in bilateral lower lobe and left upper lobe. Bronchoalveolar lavage was obtained Patient extubated successfully on 02/13; However patient required reintubation on 02/15 due to respiratory stress. Completed 7 days of antibiotics. Titrate down IV methylprednisolone as able Currently saturating on supplemental oxygen Poor prognosis given comorbidities If clinically deteriorates, patient's family considering transition to comfort Appreciate palliative care input Acute kidney injury on CKD IV Baseline creatinine around 1.6-1.8 Likely ischemic ATN given septic shock, anemia, IV contrast Poor candidate for dialysis given metastatic disease Patient's family prefers no dialysis as well Monitor renal function avoid nephrotoxic agents as able Appreciate nephrology input Acute right upper extremity deep vein thrombosis --Venous Doppler:Positive study with deep venous thrombus within the right internal jugular, subclavian and axillary veins. Thrombus adjacent to the right internal jugular [id number]. Superficial thrombus within the right basilic vein. Continue IV heparin Atrial fibrillation with RVR New onset Monitor and replete electrolytes as needed Normal TSH Echo as above Started on metoprolol On IV heparin as above Cardiology consulted Acute on chronic hyponatremia: Patient with chronic hyponatremia secondary to SIADH. Admitting sodium level of 122 Sodium level improved to 136 Monitor Acute on chronic anemia: Baseline hemoglobin around 9, admitting hemoglobin of 6.9, FOBT done in the ED was positive. Status post 2 unit PRBC GI on board, continue with PPI, no plan for current intervention. Monitor H&H, transfuse for hemoglobin less than 7. Monitor CBC Type II NSTEMI: Patient with elevated troponin at presentation, down trended. EKG with no acute ST or T changes. Echo with EF of 60 to 65%, LV systolic function normal, no regional wall motion abnormalities of LV noted. Demand ischemia secondary to acute illness. Continue telemetry. Right ankle fracture: Right ankle x-ray with age-indeterminate fracture of proximal tip of the fifth metatarsal tubercle. No known history of trauma Conservative management Other chronic medical conditions: Continue with/resume home meds as and when able. Two lung primary malignancies ongoing chemotherapy/Tagrisso Rx: Hold Rx due to acute illness. CTAP with concern for pelvic bone metastasis, will need follow up with her oncologist. hx PVD status post stent moderate MR (TTE 2021) atrial septal aneurysm as per records DM2 on oral medications, well-controlled as of recent hemoglobin A1c of 5.02 July 2023 ongoing tobacco abuse DVT Px: IV heparin Code Status DNR/DNI Admission and Anticipated Discharge Date Admission Date: February 10, 2024 Subjective Patient is seen and examined at bedside States having minimal cough but otherwise no complaints Intermittently confused and delirious Noted to be in A-fib RVR today Discussed with palliative care team Patient denies any chest pain, dyspnea, nausea, vomiting, abdominal pain Still has significant right upper extremity swelling Plan to be moved out of ICU today Review of Systems Review of Systems: Other Physical Exam Physical Exam: Physical Exam: Vitals signs as noted above General Appearance:Moderately built and nourished, no apparent distress, ill- appearing Head: normocephalic, Atraumatic Eyes: normal inspection, EOMI Neck: supple, Trachea midline Respiratory/Chest: Decreased breath sounds, scattered rhonchi, no accessory muscle use Cardiovascular: Irregularly irregular, No murmur, tachycardia Abdomen/GI:Soft, Non tender, Bowel sounds present Extremities/Musculoskeletal:normal inspection, RUE edema, Neurologic/Psych:AAOX2, grossly no focal neurological deficits Skin: normal color, warm Results & Data Results & Data Vital Signs (Past 12 Hours) Vital Signs Pulse Pulse Resp BP Pulse Ox O2 Del Method O2 Flow Rate 02/19/24 13:03 135 H 18 87 L 02/19/24 13:00 134/82 02/19/24 12:54 140 H 25 H 89 L 02/19/24 12:19 141 H 02/19/24 12:00 136 H 25 H 88 L 02/19/24 12:00 133/89 02/19/24 11:54 141 H 02/19/24 11:09 146 H 154/86 H 02/19/24 11:06 154/86 H 02/19/24 11:03 152 H 16 88 L 02/19/24 11:00 136/108 H 02/19/24 11:00 136/108 H 02/19/24 10:57 117 H 19 85 L 02/19/24 10:01 175/81 H 02/19/24 10:00 105 H 22 91 02/19/24 09:03 104 H 19 86 L 02/19/24 09:02 164/89 H 02/19/24 09:02 164/89 H 02/19/24 08:51 103 H 18 89 L 02/19/24 08:03 110 H 20 90 02/19/24 08:00 166/88 H 02/19/24 08:00 Nasal Cannula 2 02/19/24 07:57 113 H 21 91 02/19/24 07:38 149/94 H 02/19/24 07:33 90 15 92 02/19/24 07:09 100 H 23 95 02/19/24 07:07 99 H 18 90 Nasal Cannula 1 02/19/24 06:09 104 H 16 86 L 02/19/24 06:00 156/72 H 02/19/24 05:42 107 H 20 85 L 02/19/24 05:18 107 H 22 91 02/19/24 05:00 160/70 H 02/19/24 04:57 90 15 89 L 02/19/24 04:12 100 H 18 87 L 02/19/24 04:00 170/71 H 02/19/24 03:57 92 H 15 88 L 02/19/24 03:03 102 H 14 87 L 02/19/24 03:00 167/77 H 02/19/24 02:45 94 H 16 89 L 02/19/24 02:33 95 H 16 89 L Laboratory Results Short CBC 02/19/24 Range/Units 04:35 WBC 15.80 H (4.8-10.8) K/ul Hgb 8.9 L (12.0-16.0) g/dl Hct 25.9 L (37.0-47.0) % Plt Count 270 (130-400) K/uL BMP 02/19/24 04:35 Sodium 136 Potassium 3.7 Chloride 99 Carbon Dioxide 17 L BUN 112 H Creatinine 3.71 H D Glucose 132 H Calcium 8.4 L
[2024-02-19] MEDS: POTASSIUM CHLORIDE CRTAB 20 MEQ TABCR PO STA (15:52)
[2024-02-19] MEDS: METOPROLOL TARTRATE 1 MG/ML VIAL IV STA (15:53)
--- NOTE | 2024-02-19 16:50 | Electrocardiogram Report ---
Test Reason : Blood Pressure : */* mmHG Vent. Rate : 139 BPM Atrial Rate : 147 BPM P-R Int : * ms QRS Dur : 104 ms QT Int : 278 ms P-R-T Axes : * 100 -66 degrees QTcB Int : 423 ms Atrial fibrillation with rapid ventricular response Rightward axis Marked ST abnormality, possible lateral subendocardial injury Abnormal ECG When compared with ECG of 17-Feb-2024 21:06, Atrial fibrillation has replaced Sinus rhythm Vent. rate has increased by [address] now depressed in Lateral leads Nonspecific T wave abnormality no longer evident in Anterior leads Confirmed by Andrea Velásquez ([id number]) on 02/19/2024 4:50:19 PM Referred By: REFERRED SELF Confirmed By: Andrea Velásquez
[2024-02-19 20:25] LABS: Calcium 8.6 mg/dl (8.6-10.3); Potassium 3.9 mmol/L (3.5-5.1)
[2024-02-19 23:38] VITALS: BP 141/95
[2024-02-20] MEDS: ALBUT/IPRATROP 3MG/0.5MG NEB 3 ML VIAL NEB PRN (00:01)
[2024-02-20 00:03] VITALS: RESP 30; O2SAT 87
[2024-02-20] MEDS ORDERED: ONDANSETRON INJ 2 MG/ML 2 ML VIAL IV PRN (00:19)
[2024-02-20] MEDS ORDERED: HYOSCYAMINE SULFATE 0.125 MG TAB SL PRN (00:19)
[2024-02-20] MEDS ORDERED: ATROPINE SULFATE 1% OP SOLN 5 ML BTL SL PRN (00:19)
[2024-02-20] MEDS ORDERED: LORazepam 2 MG/1 ML VIAL IV PRN (00:19)
--- NOTE | 2024-02-20 00:24 | Communication Note ---
Date of Service: February 20, 2024 Patient with increasing O2 requirement and worsening status despite current medical interventions as per RN. Patient updated over the phone after reviewing a.m. provider note which mentioned comfort care if with continued clinical deterioration. Patient agreeable to transition to comfort measures.
[2024-02-20 00:28] VITALS: PULSE 110
[2024-02-20] MEDS: MoRPHine SULFATE 4 MG/ML 1 ML CARP\\VIAL IV PRN ×2 (00:33→03:44)
[2024-02-20] MEDS: GLYCOPYRROLATE 0.2 MG/ML VIAL IV PRN (01:25)
--- NOTE | 2024-02-20 14:33 | Hospitalist Progress Note ---
Date of Service February 20, 2024 Assessment & Plan (1) Encephalopathy: Plan: 73-year-old lady with PMH of PVD s/p surgery, moderate MR [TTE 2021], atrial septal aneurysm, lung adenocarcinoma on Tagrisso, squamous cell carcinoma of the lung on chemotherapy, COPD, DM2 on oral meds, CKD [baseline creatinine of 1.6- 1.7], chronic hyponatremia secondary to SIADH, chronic anemia [baseline hemoglobin of 9], GERD, cervical intraepithelial neoplasm status post surgery, migraine, anxiety/mood disorder, ongoing tobacco abuse was brought to the ED with complaint of not feeling well for the last few weeks, not eating well and increasingly getting weak in the last few days, patient fell at home from being dizzy about 3 days ago [employer] and has been sleeping all day and not urinating much. Patient also noted to have cough with shortness of breath, had been complaining of abdominal discomfort but denied black or bloody stool. Multifocal pneumonia Severe sepsis with shock in an immunocompromised patient Acute Hypoxic respiratory failure Acute Metabolic encephalopathy Possible adrenal insufficiency: given intermittent Decadron Rx during chemotherapy. Random cortisol wnl. Pt on hydrocortisone in ICU. Delirium Patient presenting with cough and shortness of breath, had systolic blood pressure in 70s. --Chest CT:Progression of extensive bilateral airspace opacities, greater within the left lung. The findings suggest pneumonia or aspiration pneumonitis. Redemonstration of several suspicious right lung lesions, including a spiculated cavitary 4.3 x 3.5 cm lesion suggestive of primary lung neoplasm. Stable to slight improvement in multiple irregular left upper lobe nodules, several of which are cavitary. These may be infectious or neoplastic. Persistent interlobular septal thickening. This favors pulmonary edema although lymphangitic tumor could appear similar. Increase in small to moderate right and small left pleural effusions. No pneumothorax. -- BioFire negative --Blood cultures negative Patient was admitted to ICU for vasopressor support. Patient was intubated on 02/10 due to progressive hypoxia/agitation Patient underwent bronchoscopy after intubation; thick grayish-white secretions appreciated in the trachea, daina and predominantly in bilateral lower lobe and left upper lobe. Bronchoalveolar lavage was obtained Patient extubated successfully on 02/13; However patient required reintubation on 02/15 due to respiratory stress. Completed 7 days of antibiotics. Titrate down IV methylprednisolone as able Currently saturating on supplemental oxygen Poor prognosis given comorbidities Appreciate palliative care input Clinically deteriorated despite aggressive management and patient transitioned to comfort measures only as per patient and patient's family's request Currently on comfort measures only Likely discharge home with home hospice when arranged Acute kidney injury on CKD IV Baseline creatinine around 1.6-1.8 Likely ischemic ATN given septic shock, anemia, IV contrast Poor candidate for dialysis given metastatic disease Patient's family prefers no dialysis as well Monitor renal function avoid nephrotoxic agents as able Appreciate nephrology input Acute right upper extremity deep vein thrombosis --Venous Doppler:Positive study with deep venous thrombus within the right internal jugular, subclavian and axillary veins. Thrombus adjacent to the right internal jugular [id number]. Superficial thrombus within the right basilic vein. Continue IV heparin--discontinued as patient on comfort measures only Atrial fibrillation with RVR New onset Monitor and replete electrolytes as needed Normal TSH Echo as above Appreciate cardiology input Metoprolol, anticoagulation discontinued as patient on comfort measures only Acute on chronic hyponatremia: Patient with chronic hyponatremia secondary to SIADH. Admitting sodium level of 122 Sodium level improved to 136 Monitor Acute on chronic anemia: Baseline hemoglobin around 9, admitting hemoglobin of 6.9, FOBT done in the ED was positive. Status post 2 unit PRBC GI on board, continue with PPI, no plan for current intervention. Monitor H&H, transfuse for hemoglobin less than 7. Monitor CBC Type II NSTEMI: Patient with elevated troponin at presentation, down trended. EKG with no acute ST or T changes. Echo with EF of 60 to 65%, LV systolic function normal, no regional wall motion abnormalities of LV noted. Demand ischemia secondary to acute illness. Continue telemetry. Right ankle fracture: Right ankle x-ray with age-indeterminate fracture of proximal tip of the fifth metatarsal tubercle. No known history of trauma Conservative management Other chronic medical conditions: Continue with/resume home meds as and when able. Two lung primary malignancies ongoing chemotherapy/Tagrisso Rx: Hold Rx due to acute illness. CTAP with concern for pelvic bone metastasis, will need follow up with her oncologist. hx PVD status post stent moderate MR (TTE 2021) atrial septal aneurysm as per records DM2 on oral medications, well-controlled as of recent hemoglobin A1c of 5.02 July 2023 ongoing tobacco abuse DVT Px: IV heparin--discontinued Code Status DNR/DNI Admission and Anticipated Discharge Date Admission Date: February 10, 2024 Subjective Patient is seen and examined at bedside Clinically deteriorated overnight and transition to comfort measures as per patient and patient's family's request Currently on comfort measures only Poor appetite Offers no complaints during my encounter this morning Review of Systems Review of Systems: All systems reviewed & are unremarkable except as noted in Subjective Physical Exam Physical Exam: Physical Exam: Vitals signs as noted above General Appearance:Moderately built and nourished, no apparent distress, ill- appearing Head: normocephalic, Atraumatic Eyes: normal inspection, EOMI Neck: supple, Trachea midline Respiratory/Chest: Decreased breath sounds, scattered rhonchi, no accessory muscle use Cardiovascular: Irregularly irregular, No murmur, tachycardia Abdomen/GI:Soft, Non tender, Bowel sounds present Extremities/Musculoskeletal:normal inspection, RUE edema, Neurologic/Psych:AAOX2, grossly no focal neurological deficits Skin: normal color, warm Results & Data Results & Data Vital Signs (Past 12 Hours) Vital Signs O2 Del Method 02/20/24 09:15 Room Air Laboratory Results [facility] 02/19/24 19:55 Sodium 136 Potassium 3.9 Chloride 97 L Carbon Dioxide 19 L BUN 121 H Creatinine 3.78 H Glucose 140 H Calcium 8.6
--- NOTE | 2024-02-21 12:21 | Hospitalist Progress Note ---
Date of Service February 21, 2024 Assessment & Plan (1) Encephalopathy: Plan: 73-year-old lady with PMH of PVD s/p surgery, moderate MR [TTE 2021], atrial septal aneurysm, lung adenocarcinoma on Tagrisso, squamous cell carcinoma of the lung on chemotherapy, COPD, DM2 on oral meds, CKD [baseline creatinine of 1.6- 1.7], chronic hyponatremia secondary to SIADH, chronic anemia [baseline hemoglobin of 9], GERD, cervical intraepithelial neoplasm status post surgery, migraine, anxiety/mood disorder, ongoing tobacco abuse was brought to the ED with complaint of not feeling well for the last few weeks, not eating well and increasingly getting weak in the last few days, patient fell at home from being dizzy about 3 days ago [employer] and has been sleeping all day and not urinating much. Patient also noted to have cough with shortness of breath, had been complaining of abdominal discomfort but denied black or bloody stool. Multifocal pneumonia Severe sepsis with shock in an immunocompromised patient Acute Hypoxic respiratory failure Acute Metabolic encephalopathy Possible adrenal insufficiency: given intermittent Decadron Rx during chemotherapy. Random cortisol wnl. Pt on hydrocortisone in ICU. Delirium Patient presenting with cough and shortness of breath, had systolic blood pressure in 70s. --Chest CT:Progression of extensive bilateral airspace opacities, greater within the left lung. The findings suggest pneumonia or aspiration pneumonitis. Redemonstration of several suspicious right lung lesions, including a spiculated cavitary 4.3 x 3.5 cm lesion suggestive of primary lung neoplasm. Stable to slight improvement in multiple irregular left upper lobe nodules, several of which are cavitary. These may be infectious or neoplastic. Persistent interlobular septal thickening. This favors pulmonary edema although lymphangitic tumor could appear similar. Increase in small to moderate right and small left pleural effusions. No pneumothorax. -- BioFire negative --Blood cultures negative Patient was admitted to ICU for vasopressor support. Patient was intubated on 02/10 due to progressive hypoxia/agitation Patient underwent bronchoscopy after intubation; thick grayish-white secretions appreciated in the trachea, daina and predominantly in bilateral lower lobe and left upper lobe. Bronchoalveolar lavage was obtained Patient extubated successfully on 02/13; However patient required reintubation on 02/15 due to respiratory stress. Completed 7 days of antibiotics. Titrate down IV methylprednisolone as able Currently saturating on supplemental oxygen Poor prognosis given comorbidities Appreciate palliative care input Clinically deteriorated despite aggressive management and patient transitioned to comfort measures only as per patient and patient's family's request Currently on comfort measures only Plan to discharge home with Home Hospice Acute kidney injury on CKD IV Baseline creatinine around 1.6-1.8 Likely ischemic ATN given septic shock, anemia, IV contrast Poor candidate for dialysis given metastatic disease Patient's family prefers no dialysis as well Monitor renal function avoid nephrotoxic agents as able Appreciate nephrology input Acute right upper extremity deep vein thrombosis --Venous Doppler:Positive study with deep venous thrombus within the right internal jugular, subclavian and axillary veins. Thrombus adjacent to the right internal jugular [id number]. Superficial thrombus within the right basilic vein. Continue IV heparin--discontinued as patient on comfort measures only Atrial fibrillation with RVR New onset Monitor and replete electrolytes as needed Normal TSH Echo as above Appreciate cardiology input Metoprolol, anticoagulation discontinued as patient on comfort measures only Acute on chronic hyponatremia: Patient with chronic hyponatremia secondary to SIADH. Admitting sodium level of 122 Sodium level improved to 136 Monitor Acute on chronic anemia: Baseline hemoglobin around 9, admitting hemoglobin of 6.9, FOBT done in the ED was positive. Status post 2 unit PRBC GI on board, continue with PPI, no plan for current intervention. Monitor H&H, transfuse for hemoglobin less than 7. Monitor CBC Type II NSTEMI: Patient with elevated troponin at presentation, down trended. EKG with no acute ST or T changes. Echo with EF of 60 to 65%, LV systolic function normal, no regional wall motion abnormalities of LV noted. Demand ischemia secondary to acute illness. Continue telemetry. Right ankle fracture: Right ankle x-ray with age-indeterminate fracture of proximal tip of the fifth metatarsal tubercle. No known history of trauma Conservative management Other chronic medical conditions: Continue with/resume home meds as and when able. Two lung primary malignancies ongoing chemotherapy/Tagrisso Rx: Hold Rx due to acute illness. CTAP with concern for pelvic bone metastasis, will need follow up with her oncologist. hx PVD status post stent moderate MR (TTE 2021) atrial septal aneurysm as per records DM2 on oral medications, well-controlled as of recent hemoglobin A1c of 5.02 July 2023 ongoing tobacco abuse DVT Px: IV heparin--discontinued Code Status DNR/DNI Disposition Home with Home Hospice Admission and Anticipated Discharge Date Admission Date: February 10, 2024 Subjective Patient is seen and examined at bedside Currently on comfort measures only Offers no complaints Continues to have poor appetite Denies any chest pain, dyspnea, nausea, abd pain Review of Systems Review of Systems: All systems reviewed & are unremarkable except as noted in Subjective Physical Exam Physical Exam: Physical Exam: Vitals signs as noted above General Appearance:Moderately built and nourished, no apparent distress, ill- appearing Head: normocephalic, Atraumatic Eyes: normal inspection, EOMI Neck: supple, Trachea midline Respiratory/Chest: Decreased breath sounds, scattered rhonchi, no accessory muscle use Cardiovascular: Irregularly irregular, No murmur, tachycardia Abdomen/GI:Soft, Non tender, Bowel sounds present Extremities/Musculoskeletal:normal inspection, RUE edema, Neurologic/Psych:AAOX2, grossly no focal neurological deficits Skin: normal color, warm
--- NOTE | 2024-02-21 12:39 | Discharge Summary ---
Date of Service February 21, 2024 Admission HPI Per Admitting Provider History obtained from patient, family, and records. Limited history from patient secondary to disorientation. 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 Patient not well over the last few weeks as per . Not eating well. Patient increasingly weak. 3 days ago, patient fell at home from being dizzy. Sleeping all day and not urinating much. Patient admits to junky cough symptoms with some SOB. Not sure about aspiration. Patient complaining of some abdominal discomfort, denies black/bloody stools. Patient brought to the ER for evaluation. SBP 70s upon arrival at the ER. Lowest O2 sats of 80s documented at the ER. Vancomycin, Zosyn, fluid boluses, 2 units PRBC administered at the ER BiPAP and Levophed later initiated at the ER. 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 Admission Exam Per Admitting Provider GENERAL: Disoriented, uncomfortable, restless, ill-appearing, no respiratory distress SKIN: Pallor, warm HEENT: Sparse hair, pale palpebral conjunctivae, no ptosis, dry buccal mucosa, BiPAP in place NECK : Supple, no tenderness CHEST : Decreased breath sounds, diffuse expiratory wheezes, no tenderness HEART : RRR, systolic murmur ABDOMEN: Some distention, nontender RECTAL : Intact sphincter, dark brown stool (FOBT positive) EXTREMITIES : No LE swelling/tenderness, no other conspicuous deformities noted NEUROLOGIC : Disoriented, no facial asymmetry, gait and stance not assessed Principal Diagnosis Squamous cell carcinoma of the lung Multifocal pneumonia Severe sepsis with shock in an immunocompromised patient Acute Hypoxic respiratory failure Acute Metabolic encephalopathy Possible adrenal insufficiency Acute kidney injury on CKD IV Acute right upper extremity deep vein thrombosis Atrial fibrillation with RVR Acute on chronic hyponatremia age-indeterminate fracture of proximal tip of the fifth metatarsal tubercle Discharge Data Allergies Allergy/AdvReac Type Severity Reaction Status Date / Time NSAIDS (Non-Steroidal AdvReac Intermediate Hives Verified 12/16/23 07:27 Anti-Inflamma Consultations 02/10/24 20:00 ED Decision to Admit Stat 02/10/24 22:54 Consult Gastroenterology Routine Consult Head Of Conservation Routine 02/11/24 04:09 Consult Nephrology Routine 02/17/24 10:19 Consult Palliative Care Routine 02/19/24 12:20 Consult Cardiology Routine Procedures Performed Laboratory Results WBC 15.80 K/ul (4.8-10.8) H 02/19/24 04:35 RBC 3.11 M/uL (4.20-5.40) L 02/19/24 04:35 Hgb 8.9 g/dl (12.0-16.0) L 02/19/24 04:35 POC Hgb 8.8 g/dl (12.0-16.0) L 02/15/24 23:54 Hct 25.9 % (37.0-47.0) L 02/19/24 04:35 POC Hct 26 % (37-47) L 02/15/24 23:54 MCV 83.3 fL (80.0-100.0) 02/19/24 04:35 MCH 28.6 pg (25.0-34.0) 02/19/24 04:35 MCHC 34.4 g/dL (32.0-36.0) 02/19/24 04:35 RDW Std Deviation 55.7 fL (36.4-46.3) H 02/19/24 04:35 RDW Coeff of Lara 18.5 % (11.5-14.5) H 02/19/24 04:35 Plt Count 270 K/uL (130-400) 02/19/24 04:35 MPV 10.2 fL (9.4-12.4) 02/19/24 04:35 Immature Gran % (Auto) 1.0 % 02/19/24 04:35 Neut % (Auto) 91.8 % 02/19/24 04:35 Lymph % (Auto) 5.3 % 02/19/24 04:35 Mcdowell % (Auto) 1.8 % 02/19/24 04:35 Eos % (Auto) 0.0 % 02/19/24 04:35 Baso % (Auto) 0.1 % 02/19/24 04:35 Reticulocyte % (Auto) 1.57 % (0.50-2.00) 02/10/24 16:44 Neut # (Auto) 14.50 K/uL (1.40-6.50) H 02/19/24 04:35 Lymph # (Auto) 0.84 K/uL (1.20-3.40) L 02/19/24 04:35 Mcdowell # (Auto) 0.28 K/uL (0.11-0.59) 02/19/24 04:35 Eos # (Auto) 0.00 K/uL (0.00-0.50) 02/19/24 04:35 Baso # (Auto) 0.02 K/uL (0.00-0.20) 02/19/24 04:35 Reticulocyte # 0.040 10^6/uL (0.020-0.100) 02/10/24 16:44 Immature Gran # (Auto) 0.16 K/uL (0.01-0.20) 02/19/24 04:35 Absolute Nucleated RBC 0.02 K/uL (0.00-0.12) 02/15/24 04:10 Nucleated RBC % (auto) 0.1 % 02/15/24 04:10 RBC Morphology Unremarkable 02/10/24 16:44 Polychromasia 1+ 02/19/24 04:35 Echinocytes 1+ 02/19/24 04:35 Acanthocytes (Spur) 1+ 02/16/24 04:13 PT 10.9 Seconds (9.0-12.0) 02/10/24 16:44 INR 1.0 (0.9-1.1) 02/10/24 16:44 APTT > 139 Seconds (21-31) H* 02/14/24 15:41 PTT Ratio > 4.9 02/14/24 15:41 Heparin Anti-Xa, Unfract 0.40 IU/ml (0.3-0.7) 02/19/24 08:27 Specimen Type Arterial 02/15/24 23:54 Sample Site L Radial 02/15/24 23:54 POC pH 7.27 (7.35-7.45) L 02/15/24 23:54 POC pCO2 46 mmHg (35-46) 02/15/24 23:54 POC pO2 77 mmHg (80-95) L 02/15/24 23:54 POC HCO3 21 mitchell/L (19-24) 02/15/24 23:54 POC Total CO2 23 mmol/L (24-31) L 02/15/24 23:54 POC Base Excess -5.0 mitchell/L (-9-1.8) 02/15/24 23:54 O2 Sat Pulse Oximetry 91 02/15/24 23:54 ABG pH (Temp Correct) 7.258 (7.35-7.45) L 02/15/24 23:54 ABG pCO2 (Temp Corrct 48 mmHg (35-46) H 02/15/24 23:54 POC ABG pO2 at Pt Temp 82 02/15/24 23:54 POC ABG O2 Sat 93.0 % (90-95) 02/15/24 23:54 Tyler Test Pass 02/15/24 23:54 VBG pH 7.16 (7.36-7.41) L 02/11/24 00:44 VBG pCO2 54 mmHg (38-50) H 02/11/24 00:44 VBG pO2 < 20 mmHg 02/11/24 00:44 VBG HCO3 19 mmol/L 02/11/24 00:44 VBG O2 Saturation < 60.0 % 02/11/24 00:44 VBG Base Excess -9.8 mEq/L 02/11/24 00:44 O2 Delivery Device Ventilator 02/15/24 23:54 Vent Mode AC 02/15/24 23:54 POC FiO2 80 % 02/15/24 23:54 End Tidal CO2 31 02/15/24 23:54 EPAP 5 02/11/24 04:32 IPAP 12 02/11/24 04:32 POC Sodium 130 mmol/L (135-144) L 02/15/24 23:54 Sodium 136 mmol/L (136-145) 02/19/24 19:55 POC Potassium 3.7 mmol/L (3.3-5.0) 02/15/24 23:54 Potassium 3.9 mmol/L (3.5-5.1) 02/19/24 19:55 Chloride 97 mmol/L (98-107) L 02/19/24 19:55 Carbon Dioxide 19 mmol/L (21-32) L 02/19/24 19:55 Anion Gap 20 (3-11) H 02/19/24 19:55 BUN 121 mg/dl (6-23) H 02/19/24 19:55 Creatinine 3.78 mg/dl (0.6-1.2) H 02/19/24 19:55 Est Cr Clr Drug Dosing 12.0 ml/min 02/19/24 19:55 eGFR 12.06 02/19/24 19:55 BUN/Creatinine Ratio 32.0 (10-20) H 02/19/24 19:55 Glucose 140 mg/dl (70-99(Fasting)) H 02/19/24 19:55 POC Glucose 139 mg/dl (70-99) H 02/19/24 20:42 Estimat Average Glucose 128 mg/dl 02/11/24 05:21 Hemoglobin A1c 6.1 % (4.5-5.6) H 02/11/24 05:21 Osmolality 261 mOsm/kg (280-300) L 02/10/24 17:17 Lactate 1.3 mmol/L (0.4-2.0) 02/10/24 16:44 Calcium 8.6 mg/dl (8.6-10.3) 02/19/24 19:55 Ionized Calcium 1.11 mmol/L (1.12-1.32) L 02/17/24 21:36 Phosphorus 6.8 mg/dl (2.5-4.9) H 02/17/24 04:23 Magnesium 2.3 mg/dl (1.7-2.4) 02/19/24 04:35 Iron 45 mcg/dl (35-150) 02/10/24 16:44 Iron Cancelled 02/10/24 16:44 Unsaturated IBC 190 mcg/dl (155-355) 02/10/24 16:44 Unsaturated IBC Cancelled 02/10/24 16:44 Transferrin 178 mg/dl (200-360) L 02/10/24 16:44 Transferrin Cancelled 02/10/24 16:44 Ferritin 1527.0 ng/ml (8-388) H 02/10/24 16:44 Ferritin Cancelled 02/10/24 16:44 Total Bilirubin 0.3 mg/dl (0.2-1.0) 02/13/24 05:00 Direct Bilirubin 0.3 mg/dl (0-0.2) H 02/11/24 05:21 AST 10 U/L (13-39) L 02/13/24 05:00 ALT 8 U/L (7-52) 02/13/24 05:00 Alkaline Phosphatase 60 U/L (34-104) 02/13/24 05:00 Ammonia 12.0 umol/L (18-72) L 02/11/24 00:44 Total Creatine Kinase 342 U/L (26-192) H 02/11/24 05:21 Troponin I High Sens 2050.0 pg/ml (0-14) H* 02/14/24 20:00 B-Natriuretic Peptide 1106 pg/ml (0-100) H 02/10/24 20:31 Total Protein 5.2 gm/dl (6.0-8.3) L 02/13/24 05:00 Albumin 2.5 gm/dl (3.4-5.0) L 02/13/24 05:00 Globulin 2.7 gm/dl (2.5-4.0) 02/13/24 05:00 Albumin/Globulin Ratio 0.9 (0.9-2) 02/13/24 05:00 Triglycerides 285 mg/dl (0-150) H 02/14/24 04:34 Vitamin B12 657 pg/ml (180-914) 02/10/24 16:44 Folate 14.60 ng/ml (>5.38) 02/10/24 16:44 Procalcitonin 0.52 ng/ml (0-0.5) H 02/10/24 16:44 TSH 3.822 uIu/ml (0.300-4.500) 02/10/24 16:44 Random Cortisol 26.49 mcg/dl 02/11/24 00:44 Urine Color Dark Yellow 02/10/24 20:39 Urine Appearance Clear (Clear) 02/10/24 20:39 Urine pH 5.0 (4.5-7.5) 02/10/24 20:39 Ur Specific [place] 1.021 (1.000-1.030) 02/10/24 20:39 Urine Protein Trace (Negative) H 02/10/24 20:39 Urine Glucose (UA) Negative (Negative) 02/10/24 20:39 Urine Ketones Trace (Negative) H 02/10/24 20:39 Urine Blood Negative (Negative) 02/10/24 20:39 Urine Nitrite Negative (Negative) 02/10/24 20:39 Urine Bilirubin 1+ (Negative) H 02/10/24 20:39 Urine Urobilinogen Negative (Negative) 02/10/24 20:39 Ur Leukocyte Esterase Trace (Negative) H 02/10/24 20:39 Urine WBC (Auto) 0-5 /hpf (0-5) 02/10/24 20:39 Urine RBC (Auto) 0-2 /hpf (0-2) 02/10/24 20:39 U Hyaline Cast (Auto) 6-10 /lpf (0-2) H 02/10/24 20:39 U Epithel Cells (Auto) 0-2 /hpf (0-2) 02/10/24 20:39 Urine Bacteria (Auto) None Seen (None Seen) 02/10/24 20:39 Hyaline Casts Present /lpf (None Presnt) A 02/10/24 20:39 Urine Osmolality 375 mOsm/kg (500-800) L 02/10/24 20:39 Ur Random Sodium 12 mmol/L 02/10/24 20:39 Fluid Neutrophils % 72 % 02/11/24 11:05 Fluid Lymphocytes % 10 % 02/11/24 11:05 Fl Monocyt/Macrophag % 10 % 02/11/24 11:05 Fluid Comment 02/11/24 11:05 Nasal Screen MRSA (PCR) Negative (Negative) 02/10/24 18:34 Stl C. diff Tox B Gene Negative Cdiff Gene (Neg) 02/14/24 Unknown Adenovirus (PCR) Not Detected (NotDetected) 02/10/24 18:34 B. pertussis DNA (PCR) Not Detected (NotDetected) 02/10/24 18:34 B.parapertussis DNA PCR Not Detected (NotDetected) 02/10/24 18:34 C. pneumoniae DNA (PCR) Not Detected (NotDetected) 02/10/24 18:34 Coccidioid immitis DNA See Scanned Report 02/11/24 11:05 Coronavirus OC43 (PCR) Not Detected (NotDetected) 02/10/24 18:34 Coronavirus HKU1 (PCR) Not Detected (NotDetected) 02/10/24 18:34 Coronavirus 229E (PCR) Not Detected (NotDetected) 02/10/24 18:34 SARS-CoV-2 (PCR) Not Detected (NotDetected) 02/10/24 18:34 Coronavirus NL63 (PCR) Not Detected (NotDetected) 02/10/24 18:34 Histo/Blasto PCR Result See Scanned Report 02/11/24 11:05 Human Metapneumovir PCR Not Detected (NotDetected) 02/10/24 18:34 Influenza Type A (PCR) Not Detected (NotDetected) 02/10/24 18:34 Influenza Type B (PCR) Not Detected (NotDetected) 02/10/24 18:34 M. pneumoniae (PCR) Not Detected (NotDetected) 02/10/24 18:34 Parainfluenza 1 (PCR) Not Detected (NotDetected) 02/10/24 18:34 Parainfluenza 2 (PCR) Not Detected (NotDetected) 02/10/24 18:34 Parainfluenza 3 (PCR) Not Detected (NotDetected) 02/10/24 18:34 Parainfluenza 4 (PCR) Not Detected (NotDetected) 02/10/24 18:34 Pneumocyst jirovecii PCR See Scanned Report 02/11/24 11:05 RSV (PCR) Not Detected (NotDetected) 02/10/24 18:34 Entero/Rhino (PCR) Not Detected (NotDetected) 02/10/24 18:34 Blood Type O Positive 02/10/24 17:27 Blood Type Recheck O Positive 02/10/24 18:20 Antibody Screen NEGATIVE 02/10/24 17:27 Crossmatch See Detail 02/10/24 17:27 Impressions Pelvis X-Ray 02/10/24 16:21 EXAM: Radiographs of the Pelvis 1 View INDICATION: Fall. TECHNIQUE: Frontal view of the pelvis. COMPARISON: No relevant prior studies available. FINDINGS: Limitations: None. Bones/joints: Visualized bilateral hip prostheses well-seated. No dislocation or fracture noted in 1 year. Soft tissues: No abnormality noted. No radiopaque foreign body noted. Vasculature: Atherosclerosis of the abdominal aorta noted with a stent projecting to the left of the L4 vertebra possibly in the left renal artery. IMPRESSION: No pelvic fracture noted. ACT 112: Negative or not required by law. Electronically signed by Anny Pelayo 02-10-2024 6:10 PM Ankle X-Ray 02/10/24 17:40 EXAM: Radiographs of the Right Ankle 3 Views INDICATION: Fall. TECHNIQUE: Frontal, lateral and oblique views of the right ankle. COMPARISON: No relevant prior studies available. FINDINGS: Limitations: None. Bones/joints: There is mild spurring along the medial malleolus presumably related to previous trauma. Well-corticated ossicle seen on the lateral view projecting at the talar neck. There is a defined lucency at the proximal tip of the fifth metatarsal tubercle with small adjacent well-corticated ossification. Ankle mortise intact. Soft tissues: Mild periarticular soft tissue swelling. No soft tissue gas collection or radiopaque foreign body. IMPRESSION: Age-indeterminate fracture proximal tip of the fifth metatarsal tubercle. ACT 112: Negative or not required by law. Electronically signed by Anny Pelayo 02-10-2024 6:[address] 02/10/24 17:50 Exam(s): CT C SPINE EXAM: CT Cervical Spine Without Intravenous Contrast CLINICAL HISTORY: Reason for exam: lung CA, fall, hip pain. TECHNIQUE: Axial computed tomography images of the cervical spine without intravenous contrast. CTDI is 19.93 mGy and DLP is 693.39 mGy-cm. Automated exposure control was utilized for the study. A dose lowering technique was utilized adhering to the principles of ALARA. COMPARISON: No relevant prior studies available. FINDINGS: Vertebrae: No fracture or malalignment. Severe degenerative disc disease at C3-4, C4-5, C5-6, and C6-7. No severe spinal canal stenosis. Multilevel foraminal stenosis of variable degrees. Soft tissues: Interstitial thickening and nodularity at the left lung apex. IMPRESSION: 1. No fracture within the cervical spine. 2. Interstitial thickening and nodularity at the left lung apex. Electronically signed by: Felix Russell MD 02/10/24 21:19 PM Chest CTA 02/10/24 17:50 Exam(s): CTA CHEST IV Amt: 117 cc opti 320 EXAM: CT Angiography Chest With Intravenous Contrast CLINICAL HISTORY: Reason for exam: lung CA, Trop 4700, r/o pe. TECHNIQUE: Axial computed tomographic angiography images of the chest with intravenous contrast. CTDI is 34.77 mGy and DLP is 624.41 mGy-cm. Automated exposure control was utilized for the study. A dose lowering technique was utilized adhering to the principles of ALARA. MIP reconstructed images were created and reviewed. COMPARISON: No relevant prior studies available. FINDINGS: Pulmonary arteries: No pulmonary embolism. Aorta: No acute findings. Normal caliber. No dissection. Lungs: Extensive consolidation in the left lower lobe. More nodular appearing lesions in the left upper lobe some of which demonstrate early cavitation. Cavitating lesion in the right lower lobe with wall thickening measuring up to 4.3 cm. Heterogeneous opacity in the right upper lobe with what appears to be a peripheral rim measuring 4.3 cm (series 10 image 88). Linear nodularity in the posterior right upper lobe measuring 3.7 x 1.5 cm. Pleural space: Unremarkable. Heart: Heart size mildly prominent. Severe CAD. Mediastinum: Moderate hiatal hernia. Bones/joints: No acute fracture. Soft tissues: Unremarkable. Lymph nodes: Unremarkable. IMPRESSION: 1. No pulmonary embolism. 2. Extensive consolidation in the left lower lobe. 3. More nodular appearing lesions in the left upper lobe some of which demonstrate early cavitation. 4. Cavitating lesion in the right lower lobe with wall thickening measuring up to 4.3 cm. 5. Heterogeneous opacity in the right upper lobe with what appears to be a peripheral rim measuring 4.3 cm (series 10 image 88). 6. Linear nodularity in the posterior right upper lobe measuring 3.7 x 1. 5 cm. 7. Moderate hiatal hernia. 8. Heart size mildly prominent. Severe CAD. Electronically signed by: Felix Russell MD 02/10/24 19:[address] 02/10/24 17:50 CR Exam(s): CT HEAD Without Contrast EXAM: CT Head Without Intravenous Contrast CLINICAL HISTORY: Reason for exam: lung CA, fall, pain. TECHNIQUE: Axial computed tomography images of the head/brain without intravenous contrast. CTDI is 34.77 mGy and DLP is 624.41 mGy-cm. Automated exposure control was utilized for the study. A dose lowering technique was utilized adhering to the principles of ALARA. COMPARISON: No relevant prior studies available. FINDINGS: Artifacts: Images are degraded by motion artifact. Brain: No hemorrhage, extra-axial fluid collection, mass effect, or edema. Age indeterminate infarct within the right parietal cortex (series 5 image 11). Ventricles: Unremarkable. Bones/joints: Unremarkable. No fracture. Soft tissues: Unremarkable. Sinuses: No acute sinusitis. Mastoid air cells: Unremarkable as visualized. IMPRESSION: 1. No intracranial hemorrhage or traumatic injury identified. 2. 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 Correlate clinically. Consider MRI if there is concern for acute ischemia. Communications: Verify Receipt Electronically signed by: Felix Russell MD 02/10/24 20:58 PM Venous Doppler Study 02/14/24 00:00 RIGHT UPPER EXTREMITY VENOUS DOPPLER ULTRASOUND CLINICAL HISTORY: rule out DVT COMPARISON STUDY: No previous studies for comparison. TECHNIQUE: Sonography of the deep venous system of the right upper extremity was performed. FINDINGS: There is deep venous thrombus within the right internal jugular, subclavian and axillary veins. Thrombus is noted adjacent to the right internal jugular [id number]. There is also superficial thrombus within the right ba silic vein. IMPRESSION: 1. Positive study with deep venous thrombus within the right internal jugular, subclavian and axillary veins. Thrombus adjacent to the right internal jugular [id number]. 2. Superficial thrombus within the right basilic vein. ACT 112: Negative or not required by law. Electronically signed by: Abel Roberson M.D. 02/14/2024 1:[address] 02/16/24 08:47 CT OF THE CHEST WITHOUT IV CONTRAST CLINICAL HISTORY: Worsening hypoxia. Lung cancer. COMPARISON STUDY: Chest radiograph performed earlier today. Chest CT February 10, 2024. CT DOSE: 2221.55 mGy.cm TECHNIQUE: Axial images of the chest were obtained without IV contrast. Images were reviewed in the axial, sagittal, and coronal planes. IV contrast was not administered for this examination. Automated exposure control was utilized for the study. A dose lowering technique was utilized adhering to the principles of ALARA. FINDINGS: A right internal jugular [id number] is in place. Tip of endotracheal tube is just above the daina. Tip of nasogastric tube is within the stomach. There is no pneumothorax. Small to moderate right and small left pleural effusions have increased since CT of February 10, 2024. Prominent mediastinal lymph nodes are unchanged. These are suboptimally assessed on unenhanced exam. There is a moderate sized hiatal hernia. Underlying emphysema. Interlobular septal thickening is present. A cavitary right lower lobe lesion measuring 4.3 x 3.5 cm is again noted. This lesion is spiculated with irregular thickened wall. Right upper lobe irregular density measures 4.2 cm. This may also be neoplastic. Multiple cavitary left upper lobe nodules are again noted. These are stable to slightly improved since prior exam. Extensive left upper lobe and left lower lobe consolidation has progressed. Right lung airspace opacities have also increased. The abdomen and pelvis CT will be reported separately. There is body wall edema. IMPRESSION: 1. Satisfactory positioning of the endotracheal and nasogastric tubes. 2. Progression of extensive bilateral airspace opacities, greater within the left lung. The findings suggest pneumonia or aspiration pneumonitis. 3. Redemonstration of several suspicious right lung lesions, including a spiculated cavitary 4.3 x 3.5 cm lesion suggestive of primary lung neoplasm. 4. Stable to slight improvement in multiple irregular left upper lobe nodules, several of which are cavitary. These may be infectious or neoplastic. 5. Persistent interlobular septal thickening. This favors pulmonary edema although lymphangitic tumor could appear similar. 6. Increase in small to moderate right and small left pleural effusions. No pneumothorax. ACT 112: Negative or not required by law. Electronically signed by: Abel Roberson M.D. 02/16/2024 10:12 AM Abdomen/Pelvis CT 02/16/24 09:12 CT OF THE ABDOMEN AND PELVIS WITHOUT CONTRAST CLINICAL HISTORY: R/o Bleed COMPARISON STUDY: CT of the abdomen and pelvis February 10, 2024. TECHNIQUE: Axial images of the abdomen and pelvis were obtained without IV contrast. Images were reviewed in the axial, sagittal, and coronal planes. Automated exposure control was utilized for the study. A dose lowering technique was utilized adhering to the principles of ALARA. FINDINGS: Please note that the chest CT will be reported separately. Bilateral pleural effusions with extensive lower lung airspace opacities are better depicted on that exam. Tip of nasogastric tube is within the body of the stomach. Evaluation of the abdomen and pelvis is suboptimal on this unenhanced examination. No retroperitoneal hematoma is present. There is no hemoperitoneum. Unenhanced images of the liver, spleen, adrenal glands, kidneys and pancreas are unremarkable with the exception of moderate left renal atrophy. There is a 4.3 x 4 cm infrarenal abdominal aortic aneurysm with extensive aortoiliac atherosclerotic plaque. There is no evidence for rupture. Left common iliac artery stent is in place. Images of the pelvis are degraded by streak artifact from bilateral hip arthroplasties. Body wall edema is present. There is no evidence for a bowel obstruction. No bowel wall thickening is identified on unenhanced exam. There is colonic diverticulosis without evidence for acute diverticulitis. Moderate-sized hilar hernia. IMPRESSION: 1. No retroperitoneal hematoma. No hemoperitoneum. 2. No bowel obstruction. 3. 4.4 cm infrarenal abdominal aortic aneurysm. Extensive aortoiliac athe rosclerotic plaque. No evidence for rupture. 4. Anasarca. 5. Bilateral pleural effusions and extensive lower lung airspace opacity suggestive of pneumonia or aspiration pneumonitis, better depicted on the chest CT which will be reported separately. ACT 112: Negative or not required by law. Electronically signed by: Abel Roberson M.D. 02/16/2024 10:17 AM Chest X-Ray 02/19/24 07:00 EXAM: XR chest 1V portable CLINICAL HISTORY: resp failure [id number]/jtf TECHNIQUE: X-ray image of the chest was obtained in 1 view: AP projection. COMPARISON: Prior X-ray dated 02/18/2024. FINDINGS: Pulmonary Parenchyma: Mild interval improvement in air space shadowing in right lower zone. Unchanged rest of patchy opacities in bilateral lungs. Stable bilateral pelural effusion. Heart and Mediastinum: Heart size and shape are normal. Aortic knuckle calcification. No mediastinal widening or masses. No hilar or mediastinal lymphadenopathy. Bony Thorax: Bilateral shoulder prosthesis. Spondylotic changes in thoracic spine. Bony thorax appears intact without fractures or deformities. Soft Tissues: Soft tissues overlying the chest wall are unremarkable. Right CVL with tip in SVC. Interval removal of ETT and NG tube. IMPRESSION: 1. Mild interval improvement in air space shadowing in right lower zone. 2. Unchanged rest of patchy opacities in bilateral lungs. 3. Stable bilateral pelural effusion. 4. Right CVL with tip in SVC. 5. Interval removal of ETT and NG tube. Electronically signed by Ragini Solis 02-19-2024 08:21 AM Ordered Studies 02/10/24 17:50 CT abd pelvis IV con only Stat CT angio chest PE protocol Stat CT cervical spine wo con Stat CT head/brain wo con Stat 02/14/24 US venous doppler UE RT Urgent 02/16/24 08:47 CT chest diagnostic wo con Urgent 02/16/24 09:12 CT Abd and Pelvis [CT abd pelvis wo con] Urgent Hospital Course (1) Encephalopathy: 73-year-old lady with PMH of PVD s/p surgery, moderate MR [TTE 2021], atrial septal aneurysm, lung adenocarcinoma on [place], squamous cell carcinoma of the lung on chemotherapy, COPD, DM2 on oral meds, CKD [baseline creatinine of 1.6- 1.7], chronic hyponatremia secondary to SIADH, chronic anemia [baseline hemoglobin of 9], GERD, cervical intraepithelial neoplasm status post surgery, migraine, anxiety/mood disorder, ongoing tobacco abuse was brought to the ED with complaint of not feeling well for the last few weeks, not eating well and increasingly getting weak in the last few days, patient fell at home from being dizzy about 3 days ago [employer]AFF [employer]ELOP[employer] and has been sleeping all day and not urinating much. Patient also noted to have cough with shortness of breath, had been complaining of abdominal discomfort but denied black or bloody stool. Multifocal pneumonia Severe sepsis with shock in an immunocompromised patient Acute Hypoxic respiratory failure Acute Metabolic encephalopathy Possible adrenal insufficiency: given intermittent Decadron Rx during chemotherapy. Random cortisol wnl. Pt on hydrocortisone in ICU. Delirium Patient presenting with cough and shortness of breath, had systolic blood pressure in 70s. --Chest CT:Progression of extensive bilateral airspace opacities, greater within the left lung. The findings suggest pneumonia or aspiration pneumonitis. Redemonstration of several suspicious right lung lesions, including a spiculated cavitary 4.3 x 3.5 cm lesion suggestive of primary lung neoplasm. Stable to slight improvement in multiple irregular left upper lobe nodules, several of which are cavitary. These may be infectious or neoplastic. Persistent interlobular septal thickening. This favors pulmonary edema although lymphangitic tumor could appear similar. Increase in small to moderate right and small left pleural effusions. No pneumothorax. -- BioFire negative --Blood cultures negative Patient was admitted to ICU for vasopressor support. Patient was intubated on 02/10 due to progressive hypoxia/agitation Patient underwent bronchoscopy after intubation; thick grayish-white secretions appreciated in the trachea, daina and predominantly in bilateral lower lobe and left upper lobe. Bronchoalveolar lavage was obtained Patient extubated successfully on 02/13; However patient required reintubation on 02/15 due to respiratory stress. Completed 7 days of antibiotics. Titrate down IV methylprednisolone as able Currently saturating on supplemental oxygen Poor prognosis given comorbidities Appreciate palliative care input Clinically deteriorated despite aggressive management and patient transitioned to comfort measures only as per patient and patient's family's request Currently on comfort measures only Plan to discharge home with Home Hospice Acute kidney injury on CKD IV Baseline creatinine around 1.6-1.8 Likely ischemic ATN given septic shock, anemia, IV contrast Poor candidate for dialysis given metastatic disease Patient's family prefers no dialysis as well Monitor renal function avoid nephrotoxic agents as able Appreciate nephrology input Acute right upper extremity deep vein thrombosis --Venous Doppler:Positive study with deep venous thrombus within the right internal jugular, subclavian and axillary veins. Thrombus adjacent to the right internal jugular [id number]. Superficial thrombus within the right basilic vein. Continue IV heparin--discontinued as patient on comfort measures only Atrial fibrillation with RVR New onset Monitor and replete electrolytes as needed Normal TSH Echo as above Appreciate cardiology input Metoprolol, anticoagulation discontinued as patient on comfort measures only Acute on chronic hyponatremia: Patient with chronic hyponatremia secondary to SIADH. Admitting sodium level of 122 Sodium level improved to 136 Monitor Acute on chronic anemia: Baseline hemoglobin around 9, admitting hemoglobin of 6.9, FOBT done in the ED was positive. Status post 2 unit PRBC GI on board, continue with PPI, no plan for current intervention. Monitor H&H, transfuse for hemoglobin less than 7. Monitor CBC Type II NSTEMI: Patient with elevated troponin at presentation, down trended. EKG with no acute ST or T changes. Echo with EF of 60 to 65%, LV systolic function normal, no regional wall motion abnormalities of LV noted. Demand ischemia secondary to acute illness. Continue telemetry. Right ankle fracture: Right ankle x-ray with age-indeterminate fracture of proximal tip of the fifth metatarsal tubercle. No known history of trauma Conservative management Other chronic medical conditions: Continue with/resume home meds as and when able. Two lung primary malignancies ongoing chemotherapy/Tagrisso Rx: Hold Rx due to acute illness. CTAP with concern for pelvic bone metastasis, will need follow up with her oncologist. hx PVD status post stent moderate MR (TTE 2021) atrial septal aneurysm as per records DM2 on oral medications, well-controlled as of recent hemoglobin A1c of 5.02 July 2023 ongoing tobacco abuse DVT Px: IV heparin--discontinued Code Status DNR/DNI Disposition Home with Home Hospice Total Time Total Time Spent Total Time Spent (In Minutes): minutes Discharge Plan Discharge Items Patient Disposition: Hospice - Home Reason For Visit: HYPOTENSION Discharge Diagnosis: Squamous cell carcinoma of the lung Multifocal pneumonia Severe sepsis with shock in an immunocompromised patient Acute Hypoxic respiratory failure Acute Metabolic encephalopathy Possible adrenal insufficiency Acute kidney injury on CKD IV Acute right upper extremity deep vein thrombosis Atrial fibrillation with RVR Acute on chronic hyponatremia age-indeterminate fracture of proximal tip of the fifth metatarsal tubercle Activity: Per Instructions section Exercise/Sports: Gradually increase as tolerated Non-emergency contact: Primary Care Provider Call non-emergency contact if: you have any medication questions, your symptoms worsen, your pain is concerning for you and you have a fever Follow-up/Referrals: Vidal aBrba MD [Primary Care Provider] - Diet: Heart Healthy Addtl Attending Provider Instructions: Follow-up with your primary care physician/hospice physician in 1 week Please call if you have any questions or problems. You can reach a [facility] hospitalist on duty at [facility] 24 hours a day by calling [phone] Pending Studies at Discharge: No Stand-Alone Forms: My [facility] Medications and DC Order Prescriptions: New atropine 1 % Drops 4 drp sublingual Q1H PRN (Reason: secretions) Qty: 5 0RF lorazepam [Ativan] 0.5 mg tablet 0.5 mg buccal Q8H PRN (Reason: anxiety) Qty: 10 0RF morphine 20 mg/5 mL (4 mg/mL) solution 5 mg PO Q6H PRN (Reason: pain) Qty: 25 0RF Continued venlafaxine [Effexor XR] 150 mg Capsule,Extended Release 24hr 150 mg PO QAM amlodipine 5 mg Tablet 2.5 mg PO QAM dexamethasone 4 mg Tablet See Rx Instructions .ROUTE .COMPLEX Rx Instructions: Take 20mg the night before chemo - 20mg the morning of chemo losartan 100 mg Tablet 100 mg PO QAM rosuvastatin 10 mg Tablet 10 mg PO QAM bupropion HCl 150 mg Tablet Extended Release 24 Hr 150 mg PO QAM dapagliflozin propanediol [Farxiga] 5 mg Tablet 5 mg PO QAM Tagrisso 40 mg Tablet 40 mg PO QAM Breztri Aerosphere 160-9-4.8 mcg/actuation Hfa Aerosol Inhaler 2 inh INHALATION QPM albuterol sulfate 2.5 mg /3 mL (0.083 %) Solution For Nebulization 2.5 mg INHALATION Q4H PRN (Reason: Wheezing) ondansetron HCl 8 mg tablet 8 mg PO Q8H PRN (Reason: Nausea And Vomiting) propranolol 60 mg capsule,extended release 24 hr 60 mg PO QAM prochlorperazine maleate 10 mg tablet 10 mg PO Q6H PRN (Reason: Nausea) aspirin 81 mg Tablet,Delayed Release (Dr/Ec) 81 mg PO DAILY acetaminophen [Tylenol Ex Str Rapid Release] 500 mg Tablet 500 mg PO Q6H PRN (Reason: Pain) lidocaine-prilocaine 2.5-2.5 % cream 1 applic topical UD Rx Instructions: APPLY TO SKIN OVER MEDIPORT AND COVER 1 HOUR PRIOR TO ACCESSING trazodone 100 mg tablet 100 mg PO QAM omeprazole 20 mg Capsule,Delayed Release(Dr/Ec) 20 mg PO QAM albuterol sulfate 90 mcg/actuation Hfa Aerosol Inhaler 2 puff INHALATION 6XD PRN (Reason: Wheezing) melatonin 5 mg Tablet 5 mg PO HS Discontinued lansoprazole 15 mg Capsule,Delayed Release(Dr/Ec) 15 mg PO QAM Discharge Orders: Discharge Order (Routine); Ordered 02/21/24 Ordered By: Jamarcus Valdes Admission Data Admit Date/Time: 02/10/24 21:49 Attending Provider: Jamarcus Valdes Admit Provider: Vidal Flor Primary Care Provider: Vidal Barba Other Providers: Vidal Flor; Erwin Loco; Martin Grace; Tammy Sousa; Scarlett Paredes; Karina Salomon; Yue Kwong; Janiya Salazar; George Chappell; Williams Garcia; Millicent Aguilar; Sophia Flores; Afsaneh Kay; Claire Mckeon; Alexandrea Gibson; Mar Crane; Hina Douglas; Betito Chang; Deisy Medina; Nidhi Frank Jr; Donovan Youngblood; Boyd Van; Angel Nieto; Florentin Merlos; Aria Aguilar; Damion Tucker I; Romana Fox; Kushal Mcgovern; Criselda Carpio; Juan Pablo Cortes; Katerina Lombardo; Toi Chopra; Natalie Whyte; Khadijah Kohler; Sepideh Schulz; [facility]
[2024-02-24 13:52] LABS: Legionella Culture Source BALLUL; Source BAL LUL
== END 2024-02-21 17:30 | disposition hospice, home (50) | DRG 871 ==
LOC: ED 15:59 → 1E 21:49 → SUATTDRO 21:49 → 1E 22:15 → 3N 02-20 09:17